=== PATIENT | male | born 1940 | race Caucasian/White ===

== ENCOUNTER → 2018-06-13 | Outpatient (CLI) | payer MEDICARE, BC ==
--- NOTE | 2018-06-13 16:22 | CT ---
EXAMINATION TYPE: CT lumbar spine wo con DATE OF EXAM: 06/13/2018 COMPARISON: None HISTORY: Low back and Bilat hip pain. No known injury CT DLP: [address] of the lumbar spine was performed. Bone and soft tissue window settings are submitted as well as coronal and sagittal reconstructions. L1-L2: Moderate degenerative disc space narrowing. Mild posterior disc bulge. No herniation protrusio n or central stenosis. Kjik-cl-zvjpacrk degenerative change of the facet joints. Ventral spondylosis. Foramina are patent bilaterally. L2-L3: Moderate degenerative disc space narrowing. Mild posterior disc bulge. No herniation protrusio n or central stenosis. Fdnw-ib-wzbacstg degenerative change of the facet joints. Ventral spondylosis. Foramina are patent bilaterally. L3-L4: Moderate degenerative disc space narrowing. Mild posterior disc bulge. No herniation protrusio n or central stenosis. Twpk-ov-drxwskwz degenerative change of the facet joints. Ventral spondylosis. Foramina are patent bilaterally. L4-L5: Severe degenerative disc space narrowing. Moderate circumferential disc bulge. Effacement vent ral thecal sac. Mild central stenosis. Bilateral foraminal encroachment. Severe facet joint arthropat hy. L5-S1: Moderate degenerative disc space narrowing. Mild posterior disc bulge. No herniation protrusio n or central stenosis. Aoih-wg-ejlxyycr degenerative change of the facet joints. Ventral spondylosis. Foramina are patent bilaterally. No paraspinal masses are identified. Lumbar segments are free if fracture. Right renal cyst. IMPRESSION: 1. Multilevel degenerative disc disease and spondylosis with disc bulging. Mild central stenosis L4-5 .
== END | disposition home or self-care (01) ==
LOC: RADCTMAIN 13:39
PROVIDERS: ATTEND Physical Medicine & Rehabilitation
DX: M48.061 Spinal stenosis, lumbar region without neurogenic claudication (principal); M51.26 Other intervertebral disc displacement, lumbar region; M51.36 Other intervertebral disc degeneration, lumbar region; M47.816 Spondylosis without myelopathy or radiculopathy, lumbar region; M16.0 Bilateral primary osteoarthritis of hip; E78.5 Hyperlipidemia, unspecified; E03.9 Hypothyroidism, unspecified; K21.9 Gastro-esophageal reflux disease without esophagitis; Z85.46 Personal history of malignant neoplasm of prostate; Z96.0 Presence of urogenital implants; Z96.89 Presence of other specified functional implants
CPT/HCPCS: 72131

== ENCOUNTER 2018-07-22 11:27 | Inpatient (IN) | payer MEDICARE, BC ==
[2018-07-22] MEDS ORDERED: HYDROmorphone 0.5 MG/0.5 ML SYRINGE IM STA (11:47)
--- NOTE | 2018-07-22 12:17 | CT ---
EXAMINATION TYPE: CT pelvis wo con DATE OF EXAM: 07/22/2018 COMPARISON: None HISTORY: Diminished mobility in right hip CT DLP: 607.8 mGycm Automated exposure control for dose reduction was used. FINDINGS: Advanced degenerative changes in right hip are identified with marked superior joint space loss as th ere is lpyx-ac-kcek formation with subchondral cystic change. There is loss of normal spherical shape in the right femoral head. There is moderate spurring superiorly at head neck junction. Mild to mode rate acetabular spurring is seen. No acute fracture or dislocation is noted. Left hip shows moderate to severe superior axial joint space loss with spurring along superior head n carina junction, there is subchondral cystic change superolateral acetabulum. Mild to moderate disc space narrowing with vacuum disc phenomenon L4-L5 level is seen. Moderate multi level anterior and lateral spurring is present. Diverticula in the sigmoid colon are identified. No suspicious bowel dilatation is seen. There are moderate left greater than right fat-containing inguinal hernias. Numerous brachytherapy se eds in normal size prostate gland are identified. IMPRESSION: ADVANCED END-STAGE DEGENERATIVE CHANGES RIGHT HIP.
[2018-07-22] MEDS ORDERED: IBUPROFEN 400 MG TAB PO PRN (14:02)
[2018-07-22] MEDS ORDERED: NALOXONE 0.4 MG/ML 1 ML VIAL IV PRN (14:02)
--- NOTE | 2018-07-22 14:02 | ED ---
General Adult HPI - General Chief complaint: Weakness Stated complaint: diminished mobility in rt hip Time Seen by Provider: 07/22/18 11:30 Source: patient Mode of arrival: EMS Limitations: no limitations - History of Present Illness Initial comments: 78-year-old male with past mental history of chronic low back pain and right hip pain since March. He states he did at that time have a bladder stimulator , he states this was obscuring imaging of the right hip. He states he has had extensive evaluation of the lumbar spine with recent CT of lumbar spine obtained 06/13/2018. Patient states he does not have significant back pain however he states describes his pain as localized to the right hip, he states he has been following Dr. Angelo as well as Dr. Ron for these complaints over the course of the past 4+ months. Patient states that for the past month the pain in the right hip seemed to be increasing. He states he had decreased mobility and increasing pain with any range of motion. Patient states today the pain he woke up with was intolerable. He states it took him an hour and a half to walk with a walker and assistance from his from the bathroom to a chair. He states this was secondary to pain, he denies weakness. He states he does not want to range at the right hip secondary to pain. Patient denies any numbness, tingling or loss sensation of the lower extremities he denies any urinary retention or loss of bowel bladder control patient denies any warmth or erythema of the right hip, he denies any fever, chills or night sweats. He denies any IV drug use he does admit to history of prostate cancer with last PSA <0.03 per patient. Upon arrival patient is brought by EMS, states this is because he was unable to ambulate to the car secondary to pain. Patient denies any recent falls or injury to the back.Remaining ROS (-) patient denies any recent shortness of breath, chest pain,abdominal pain, nausea or vomiting, numbness or tingling, dysuria or hematuria, constipation or diarrhea, headaches or visual changes, or any other complaints. - Related Data Home Medications Medication Instructions Recorded Confirmed Cephalexin [Keflex] 500 mg PO Q8HR 07/22/18 07/22/18 Furosemide [Lasix] 20 mg PO DAILY@1400 07/22/18 07/22/18 Furosemide [Lasix] 40 mg PO DAILY 07/22/18 07/22/18 Levothyroxine Sodium [Levoxyl] 75 mcg PO DAILY 07/22/18 07/22/18 Metoprolol Tartrate [Lopressor] 25 mg PO BID 07/22/18 07/22/18 Potassium Chloride [Klor-Con 10] 20 meq PO DAILY 07/22/18 07/22/18 oxyCODONE HCL/ACETAMINOPHEN 1 tab PO Q4HR PRN 07/22/18 07/22/18 [Percocet 7.5-325 mg] Allergies Allergy/AdvReac Type Severity Reaction Status Date / Time Mwzkyqe-Kdp-Cwq Reductase AdvReac Rash/Hives Verified 07/22/18 12:10 Inhibitor Review of Systems ROS Statement: Those systems with pertinent positive or pertinent negative responses have been documented in the HPI. ROS Other: All systems not noted in ROS Statement are negative. Past Medical History - Past Family History Mother Family Medical History: Cancer Additional Family Medical History / Comment(s): from colon cancer at age 60 Father Family Medical History: Liver Disease Additional Family Medical History / Comment(s): from cirrhosis of the liver at age 59 they felt it was d/t farming chemicals 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 General Exam - General Exam Comments Initial Comments: General: The patient is awake and alert, in no distress, until movement of hip Eye: Pupils are equal, round and reactive to light, extra-ocular movements are intact. No nystagmus. There is normal conjunctiva bilaterally. No signs of icterus. Ears, nose, mouth and throat: There are moist mucous membranes and no oral lesions. Neck: The neck is supple, there is no tenderness or JVD. Cardiovascular: There is a regular rate and rhythm. No murmur, rub or gallop is appreciated. Respiratory: Lungs are clear to auscultation, respirations are non-labored, breath sounds are equal. No wheezes, stridor, rales, or rhonchi. Gastrointestinal: [Soft, non-distended, non-tender abdomen without masses or organomegaly noted. There is no rebound or guarding present. No CVA tenderness. Bowel sounds are unremarkable.] Musculoskeletal: Upon inspection of the right hip but there is an incision from recent removal of bladder stimulator. Incision clean dry intact, no surrounding erythema. No drainage. No warmth to palpation. No masses upon palpation. There is no erythema of the right hip joint, no warmth to palpation. Patient has point localized tenderness no diffuse tenderness at the right hip near the femoral head . Patient has no midline or paravertebral tenderness to the lumbar spine. Patient is able to minimally range at the right hip secondary to pain, he states he cannot bear the pain with any types of range of motion. Strength distal to the knee and foot are 5 out of 5 with full range of motion. Patient is able to fully range at the left lower extremity. Full sensation of the lower extremities from the lower back to the toes bilaterally. Equal comparison. No anesthesia of the saddle region. DP pulses equal bilaterally 2+. Neurological: A&O x 3. CN II-XII intact, There are no obvious motor or sensory deficits. Coordination appears grossly intact. Speech is normal. Skin: Skin is warm and dry and no rashes or lesions are noted. Psychiatric: Cooperative, appropriate mood & affect, normal judgment. Limitations: no limitations Course Vital Signs 07/22/18 07/22/18 11:36 14:16 Temperature 98.3 F Pulse Rate 89 84 Respiratory 16 16 Rate Blood Pressure 127/72 132/79 O2 Sat by Pulse 99 99 Oximetry Medical Decision Making - Medical Decision Making Well-appearing male 38 years old with history of chronic right hip pain. CT of the pelvis obtained revealing a end-stage osteoarthritis of the right hip. This seems to correlate with patient's symptoms. The lumbar spine obtained in the pelvic imaging study revealed no acute changes, no significant stenosis. This time feel patient's symptoms correlate with pain originating from the hip rather than the lumbar spine. Does not appear to be radicular in nature. It increases with range of motion. Patient is unable to walk, his is not able to intubate him at home. He has difficulty now bright walking with a walker. At this time do feel patient should be admitted for intractable pain, social work consult and orthopedic evaluation for possible right hip replacement , physical therapy, or subacute rehab. Patient is agreeable plan, stating he does not feel safe going home. Patient given IV analgesics for comfort. Attending provider admitted patient after speaking with Dr. sparks. Who evaluated patient in person and will resume care. No further orders at this time. Patient transferred to the floor well-appearing in stable condition. Neurovascularly intact. - Lab Data Result diagrams: 07/22/18 16:07 07/22/18 16:07 Disposition Clinical Impression: Osteoarthritis of right hip, Intractable pain, Inability to ambulate due to hip Disposition: ADMITTED IP TO THIS [facility] Condition: Good Is patient prescribed a controlled substance at d/c from ED?: No Time of Disposition: 14:02 Decision to Admit Reason: Admit from EC Decision Date: 07/22/18 Decision Time: 14:02
--- NOTE | 2018-07-22 15:49 | P.HPIM ---
History of Present Illness H&P Date: 07/22/18 Chief Complaint: Severe intractable right hip pain 78-year-old male with history of A. fib not on anticoagulation, hyperactive bladder, hypothyroid Patient presented to the hospital due to severe right hip pain. He reported pain over the past 3 months has been progressive in nature however yesterday he was not even able to take any steps or weight-bear over his right lower extremity due to extreme pain. Patient indicated that took him over an hour to get from the couch to the bathroom and was very challenging she was worried that he might fall. He denies any focal neurologic deficits like numbness tingling or any weakness in his right lower extremity or left lower extremity. But reports that pain is limiting his activity. This has been progressive over the past 3 months described as sharp pain whenever he tries to move his lower extremities or weight-bear, pain would be 10 out of 10 in severity over the right hip radiating to the groin. Denies any low back pain. Denies any saddle numbness or tingling. Denies any changes in his urination or bowel movements. MRI of his lower back was ordered when he was evaluated by orthopedic recently however he couldn't get the MRI done due to having bladder nerve stimulator over his right hip he got that surgically removed few days ago for which she is on Keflex now. He had the MRI scheduled to be done in 2 days. However he didn't tolerate the pain at home anymore his home pain medications are not helping when he is taking [place]'s and ibuprofens and decided to come the hospital seeking medical advice. In the emergency department CT of the head showed severe advanced degenerative joint disease of right hip. Orthopedic recommended admission to medicine for pain management pending further recommendations. Otherwise patient denies any traumas or injuries to his hips or back, patient has been very active up until 3 months ago back in April 2018 when his functional status started to decline. He is currently using a walker with a lot of difficulties. Patient indicated that she wouldn't be able to take care of him at home as he is requiring a lot of assistance and would consider placement at rehab of possible. She otherwise denies fevers chills, chest pain trouble breathing, nausea vomiting abdominal pain, changes in his bowel or urinary habits, denies any urinary retention or bowel retention or any incontinence in his bowel or urine. Review of Systems Pertinent positives as noted in HPI. All other systems were reviewed and are negative Past Medical History Additional Past Medical History / Comment(s): Hypothyroid, hyperactive bladder, A. fib Medications and Allergies Home Medications Medication Instructions Recorded Confirmed Type Cephalexin [Keflex] 500 mg PO Q8HR 07/22/18 07/22/18 History Furosemide [Lasix] 20 mg PO DAILY@1400 07/22/18 07/22/18 History Furosemide [Lasix] 40 mg PO DAILY 07/22/18 07/22/18 History Levothyroxine Sodium [Levoxyl] 75 mcg PO DAILY 07/22/18 07/22/18 History Metoprolol Tartrate [Lopressor] 25 mg PO BID 07/22/18 07/22/18 History Potassium Chloride [Klor-Con 10] 20 meq PO DAILY 07/22/18 07/22/18 History oxyCODONE HCL/ACETAMINOPHEN 1 tab PO Q4HR PRN 07/22/18 07/22/18 History [Percocet 7.5-325 mg] Allergies Allergy/AdvReac Type Severity Reaction Status Date / Time Giwlvjp-Cdm-Bvg Reductase AdvReac Rash/Hives Verified 07/22/18 12:10 Inhibitor Physical Exam Vitals: Vital Signs Temp Pulse Pulse Resp BP BP Pulse Ox 07/22/18 15:00 99.3 F 84 20 132/70 99 07/22/18 14:16 84 16 132/79 99 07/22/18 11:36 98.3 F 89 16 127/72 99 Intake and Output 07/22/18 07/22/18 07/22/18 06:59 14:59 22:59 Other: Weight 104.326 kg Constitutional: No acute distress, conversant, pleasant, patient looks younger than stated age Eyes: Anicteric sclerae, moist conjunctiva, no lid-lag Pupils equal round reactive to light ENMT: NC/AT Oropharynx clear, no erythema, or exudates Neck: Supple, FROM, no masses, or JVD No carotid bruits No thyromegaly Lungs: Clear to auscultation Clear to percussion Normal respiratory effort, no accessory muscle use Cardiovascular: Heart irregular normal S1 and S2 No murmurs, gallops, or rubs +2 bilateral peripheral edema Abdominal: Soft Nontender, no guarding, rebound or rigidity Abdomen moving with respiration Normoactive bowel sounds No hepatomegaly, No splenomegaly No palpable mass No abdominal wall hernia noted Skin: Normal temperature, tone, texture, turgor No induration No subcutaneous nodules No rash, lesions No ulcers Extremities: No visible bruising or ecchymosis or any wounds over her right hip, no skin changes, no warmth to the touch. Very tender to deep palpation over the anterior right hip and the lateral aspect of the right hip No digital cyanosis No clubbing Pedal pulses intact and symmetrical Radial pulses intact and symmetrical No calf tenderness Psychiatric: Alert and oriented to person, place and time Appropriate affect fair judgment Neuro Muscles Strength 5/5 in bilateral upper extremities, patient couldn' t move his proximal muscle groups of the lower extremities due to severe bilateral hip pain however distal muscle groups over the foot has strength of 5 out of 5 bilaterally Sensation to light touch grossly present throughout Cranial nerves II-XII grossly intact No focal sensory deficits Deep tendon reflexes over bilateral knees weak on the left and intact on the right, plantar reflexes downward bilaterally over the feet Lymphatics: no palpable cervical or supraclavicular , or inguinal lymph nodes Assessment and Plan Assessment: 78-year-old male with history of A. fib on metoprolol and aspirin, hyperactive bladder, hypothyroid. Admitted to observation with anticipated length of stay less than 48 hours due to intractable right hip pain, further imaging in the ER revealed advanced degenerative joint disease of the right hip. Patient will be admitted for further evaluation by orthopedic surgery for their recommendations. pain control Plan: Intractable right hip pain Severe advanced right hip degenerative joint disease Continue with [place] when necessary Toradol for severe pain when necessary Bowel regimens daily Orthopedic evaluation Debilitating pain resulting in patient not even able to use a walker and requiring personal assistance to ambulate Chronic conditions currently stable A. fib on aspirin and metoprolol Hyperactive bladder status post removal of bladder nerve stimulator continue with Keflex for 3 more doses Hypothyroidism continue with levothyroxine Peripheral dependent edema, continue with Lasix daily, [place] wrap DVT prophylaxis heparin subcu 3 times a day Check CBC and BMP PT/OT life fall precautions fall precautions Surrogate decision-maker: Patient CODE STATUS: Full code Discussed with: Patient, ER Anticipated discharge: <48hours Anticipated discharge place: Pending clinical course, indicated that she couldn't take care of him anymore and would prefer to send him to rehab A total of 60 minutes was spent on the care of this complex patient more than 50 % of the time was spent in counseling and care coordination.
[2018-07-22] MEDS: SODIUM CHLORIDE 0.9% 1,000 ML IV SCH (16:02)
[2018-07-22] MEDS: CEPHALEXIN 500 MG CAP PO SCH ×2 (16:02→23:30)
[2018-07-22] MEDS: HEPARIN SODIUM,PORCINE 5,000 UNIT/ML 1 ML VIAL SQ SCH ×2 (16:03→23:30)
[2018-07-22 16:32] LABS: Basophils % (A) 0 %; Eosinophils # (A) 0.1 k/uL (0-0.7); Eosinophils % (A) 1 %; HCT 40.3 % (39.0-53.0); HGB 12.2 gm/dL (13.0-17.5); Hypochromasia Slight; Lymphocytes # (A) 1.1 k/uL (1.0-4.8); Lymphocytes % (A) 17 %; MCH 27.9 pg (25.0-35.0); MCHC 30.3 g/dL (31.0-37.0); MCV 91.9 fL (80.0-100.0); Mean Platelet Volume 5.9; Monocytes # (A) 0.7 k/uL (0-1.0); Monocytes % (A) 10 %; Neutrophils # (A) 4.8 k/uL (1.3-7.7); Neutrophils % (A) 71 %; Platelet Count 433 k/uL (150-450); RBC 4.38 m/uL (4.30-5.90); RDW 12.9 % (11.5-15.5); WBC 6.7 k/uL (3.8-10.6)
[2018-07-22 16:48] LABS: ALT 53 U/L (21-72); AST 45 U/L (17-59); Albumin 3.5 g/dL (3.5-5.0); Alkaline Phosphatase 166 U/L (38-126); Anion Gap 11 mmol/L; Blood Urea Nitrogen 12 mg/dL (9-20); Calcium 9.2 mg/dL (8.4-10.2); Carbon Dioxide 28 mmol/L (22-30); Chloride 95 mmol/L (98-107); Glucose 115 mg/dL (74-99); Potassium 4.5 mmol/L (3.5-5.1); Sodium 134 mmol/L (137-145); Total Bilirubin 0.9 mg/dL (0.2-1.3); Total Protein 6.5 g/dL (6.3-8.2)
[2018-07-22] MEDS: oxyCODONE-APAP 7.5-325MG 1 EACH TAB PO PRN (20:14)
[2018-07-22] MEDS: METOPROLOL TARTRATE 25 MG TAB PO SCH (20:14)
[2018-07-23] MEDS: oxyCODONE-APAP 7.5-325MG 1 EACH TAB PO PRN ×4 (03:30→18:02)
[2018-07-23] MEDS: LEVOTHYROXINE 75 MCG TAB PO SCH (06:21)
[2018-07-23] MEDS: ASPIRIN 81 MG PO SCH (08:01)
[2018-07-23] MEDS: FUROSEMIDE 40 MG TAB PO SCH (08:01)
[2018-07-23] MEDS: HEPARIN SODIUM,PORCINE 5,000 UNIT/ML 1 ML VIAL SQ SCH ×3 (08:01→23:15)
[2018-07-23] MEDS: CEPHALEXIN 500 MG CAP PO SCH ×2 (08:01→15:46)
[2018-07-23] MEDS: SENNOSIDES-DOCUSATE SODIUM 1 EACH TAB PO SCH (08:01)
[2018-07-23] MEDS: METOPROLOL TARTRATE 25 MG TAB PO SCH ×2 (08:01→20:30)
--- NOTE | 2018-07-23 13:16 | P.PN ---
Subjective Progress Note Date: 07/23/18 Principal diagnosis: Follow-up for severe intractable right hip pain, with severe advanced destructive degenerative joint disease of the right hip Patient seen and examined, no events overnight. Denies any chest pain fevers or chills or trouble breathing. He reports pain is well tolerated as long as he is now moving her weightbearing. again is concerned about taking her back home as he is require taxing effort and a lot of assistance and she is unable to provide that. Objective - Vital Signs Vital signs: Vital Signs Temp 99.0 F 07/23/18 06:54 Pulse 84 07/23/18 06:54 Resp 18 07/23/18 06:54 BP 125/64 07/23/18 06:54 Pulse Ox 96 07/23/18 06:54 Intake & Output 07/22/18 07/23/18 07/23/18 18:59 06:59 18:59 Intake Total 100 Output Total 600 Balance 100 -600 Weight 104.326 kg Intake: Oral 100 Output: Urine 600 Other: Voiding Method Urinal Urinal Urinal # Voids 1 - Exam Constitutional: vital signs stable, Not in acute distress, pleasant, conversant Lungs: Clear to auscultation bilaterally, clear to percussion, normal respiratory effort no use of accessory muscles Cardiovascular: Regular rate and rhythm, no murmurs, no gallops, no rubs, +1 peripheral edema Gastrointestinal: Soft, no tenderness to palpation, no palpable hepatosplenomegally, bowel sounds positive, no abdominal wall hernias Extremities: No digital cyanosis or clubbing, peripheral pulses palpable and equal over bilateral radial arteries and dorsalis pedis artery, no calf muscle tenderness Psych: Alert, oriented to place, person and time, appropriate affect, intact judgment Neuro: Cranial nerves II-XII grossly intact, no focal sensory deficits to touch Today patient was seen in the sitting position, again he is able to demonstrate good strength in his distal muscle groups over bilateral lower extremities. He is freely moving around the knee joint and ankle joints bilaterally however he is avoiding any movement that involves the hip joint due to severe pain - Labs CBC & Chem 7: 07/22/18 16:07 07/22/18 16:07 Labs: Abnormal Lab Results - Last 24 Hours (Table) 07/22/18 07/22/18 Range/Units 16:07 16:07 Hgb 12.2 L (13.0-17.5) gm/dL MCHC 30.3 L (31.0-37.0) g/dL Sodium 134 L (137-145) mmol/L Chloride 95 L (98-107) mmol/L Creatinine 0.64 L (0.66-1.25) mg/dL Glucose 115 H (74-99) mg/dL Alkaline Phosphatase 166 H (38-126) U/L Assessment and Plan Assessment: 78-year-old male with history of A. fib on metoprolol and aspirin, hyperactive bladder, hypothyroid. Admitted to observation with anticipated length of stay less than 48 hours due to intractable right hip pain, further imaging in the ER revealed advanced degenerative joint disease of the right hip. Patient will be admitted for further evaluation by orthopedic surgery for their recommendations. pain control Plan: Intractable right hip pain Severe advanced right hip degenerative joint disease Continue with [place] when necessary Toradol for severe pain when necessary Bowel regimens daily Orthopedic evaluation Debilitating pain resulting in patient not even able to use a walker and requiring personal assistance to ambulate Chronic conditions currently stable A. fib on aspirin and metoprolol Hyperactive bladder status post removal of bladder nerve stimulator continue with Keflex for 3 more doses Hypothyroidism continue with levothyroxine Peripheral dependent edema, continue with Lasix daily DVT prophylaxis heparin subcu 3 times a day PT/OT fall precautions geriatric social work professor consult for possible need of placement CODE STATUS: Full code I discussed the case with orthopedics, who based on their schedule wouldn't be able to perform any surgeries before the weekend. They also advised regarding infectious workup due to the rapid deterioration of the right hip compared to images from 3-4 months ago. Otherwise if there is no infection and patient is cleared. He would require total hip replacement of the right hip. I will discuss with geriatric social work professor possibilities of switching the patient to inpatient status to perform the suggested workup above ID consultation placed, follow-up on the inside and CRP
[2018-07-23] MEDS: SODIUM CHLORIDE 0.9% 1,000 ML IV SCH (14:48)
[2018-07-23] MEDS: FUROSEMIDE 20 MG TAB PO SCH (14:48)
--- NOTE | 2018-07-23 16:41 | P.CNOR ---
History of Present Illness - [facility] Consult date: 07/23/18 Consult reason: joint pain (Right hip pain and inability to ambulate) History of present illness: Patient is a very pleasant 78-year-old male who is seen and examined at the bedside with his present for further evaluation in regards to his lumbar spine and hip. He was previously seen and examined at our office at [facility] by Dr. Les Ron in regards to his lumbar spine and by Dr. Angelo in regards to his right hip. He is known to have some osteoarthritis of the right hip and was told he may need a hip replacement at some point. He also has degenerative changes lumbar spine. He was previously scheduled to have an MRI of the lumbar spine but this was canceled due to him having a bladder stimulator in place. This bladder stimulator has recently been removed approximately 2 days ago. A new order for a lumbar MRI was scheduled for tomorrow, 07/24/2018. Patient states he presents to the emergency department yesterday, 07/22/2018, due to severe pain at his right hip and inability to ambulate due to pain. He has pain that radiates towards her right groin and occasionally down the right anterior thigh towards the knee. He has difficulty with performing hip flexion on the right. He has difficulty with any weightbearing on the right lower extremity. He has been using a walker to aid in ambulation. He denies any recent injuries. He denies any left lower extremity radiculopathy or weakness. His symptoms are most significant at the right hip. He denies any specific low back pain. He does not feel he is able to take care of himself at home due to his inability to ambulate and perform regular activities of daily living. During his presentation to the emergency department a CT of the pelvis was performed which showed advanced end-stage degenerative changes at the right hip. Patient was admitted to medicine through observation status for further evaluation. Patient denies any nausea, vomiting, fever, or chills. Past Medical History Past Medical History: Atrial Fibrillation, Cancer, GERD/Reflux, Hyperlipidemia, Osteoarthritis (OA), Prostate Disorder, Sleep Apnea/CPAP/BIPAP, Thyroid Disorder Additional Past Medical History / Comment(s): Hypothyroid, hyperactive bladder, A. fib History of Any Multi-Drug Resistant Organisms: None Reported Past Surgical History: Heart Catheterization, Tonsillectomy Additional Past Surgical History / Comment(s): radioactive seed implants for prostate cancer, cataracts removed-lens implants, bladder control device implanted 07-10-17 and removed 07-18-18, colonoscopy/polypectomy-benign Past Anesthesia/Blood Transfusion Reactions: No Reported Reaction Additional Past Anesthesia/Blood Transfusion Reaction / Comm: has never had any blood transfusion Smoking Status: Former smoker - Past Family History Mother Family Medical History: Cancer Additional Family Medical History / Comment(s): from colon cancer at age 60 Father Family Medical History: Liver Disease Additional Family Medical History / Comment(s): from cirrhosis of the liver at age 59 they felt it was d/t farming chemicals 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 Medications and Allergies Home Medications Medication Instructions Recorded Confirmed Type Cephalexin [Keflex] 500 mg PO Q8HR 07/22/18 07/22/18 History Furosemide [Lasix] 20 mg PO DAILY@1400 07/22/18 07/22/18 History Furosemide [Lasix] 40 mg PO DAILY 07/22/18 07/22/18 History Levothyroxine Sodium [Levoxyl] 75 mcg PO DAILY 07/22/18 07/22/18 History Metoprolol Tartrate [Lopressor] 25 mg PO BID 07/22/18 07/22/18 History Potassium Chloride [Klor-Con 10] 20 meq PO DAILY 07/22/18 07/22/18 History oxyCODONE HCL/ACETAMINOPHEN 1 tab PO Q4HR PRN 07/22/18 07/22/18 History [Percocet 7.5-325 mg] Allergies Allergy/AdvReac Type Severity Reaction Status Date / Time Noaeucf-Muw-Dlf Reductase AdvReac Rash/Hives Verified 07/22/18 12:10 Inhibitor Physical Examination Physical exam: Patient is awake, alert, and oriented 3 Vital signs stable Good chest excursion with deep inspiration and expiration Examination of lumbar spine reveals skin is intact with no abrasions, lacerations, or bruises; no erythema, purulence or signs of infection No significant pain with palpation over the lumbar spine Dorsiflexion, plantarflexion, and extensor hallucis longus positive sustained bilaterally Lower extremity strength 5/5 on the left Significant difficulty with performing hip flexion and knee extension on the right Motor strength of the lower extremity is 2/5 including hip flexion Motor strength in the lower extremity is 3/5 including the extension Significant pain with internal and external rotation of the right hip Some pain with internal rotation of the left hip No signs or symptoms of DVT; no calf pain Neurovascularly intact Results Pertinent studies: CT of the pelvis taken on 07/22/2018: Right hip advanced end-stage degenerative changes with marked superior joint space loss and bone on bone formation with subchondral cystic change, loss of normal spherical shape and the right femoral head, moderate spurring superiorly at the head neck junction, and mild to moderate acetabular spurring seen at the right hip; left hip tzrhfljx-eo-uixapa axial joint space loss with spurring along the superior neck junction and subchondral cystic change at the superior lateral acetabulum L4-5 mild to moderate degenerative disc disease with vacuum disc phenomenon; moderate multilevel anterior and lateral osteophytic spurring - Labs Labs: Abnormal Lab Results - Last 24 Hours (Table) 07/22/18 07/22/18 07/23/18 Range/Units 16:07 16:07 13:48 Hgb 12.2 L (13.0-17.5) gm/dL MCHC 30.3 L (31.0-37.0) g/dL ESR 78 H (0-15) mm/hr Sodium 134 L (137-145) mmol/L Chloride 95 L (98-107) mmol/L Creatinine 0.64 L (0.66-1.25) mg/dL Glucose 115 H (74-99) mg/dL Alkaline Phosphatase 166 H (38-126) U/L C-Reactive Protein (<10.0) mg/L 07/23/18 Range/Units 13:48 Hgb (13.0-17.5) gm/dL MCHC (31.0-37.0) g/dL ESR (0-15) mm/hr Sodium (137-145) mmol/L Chloride (98-107) mmol/L Creatinine (0.66-1.25) mg/dL Glucose (74-99) mg/dL Alkaline Phosphatase (38-126) U/L C-Reactive Protein 59.7 H (<10.0) mg/L H & H 07/22/18 Range/Units 16:07 Hgb 12.2 L (13.0-17.5) gm/dL Hct 40.3 (39.0-53.0) % Result Diagrams: 07/22/18 16:07 07/22/18 16:07 Assessment and Plan Assessment: Assessment: Right hip advanced end-stage osteoarthritis Inability to ambulate due to pain at the right hip Right hip pain Right lower extremity weakness with hip flexion and knee extension Left hip osteoarthritis Lumbar degenerative disc disease History of atrial fibrillation not on anticoagulation History of hyperactive bladder with previous bladder stimulator placed with recent removal of bladder stimulator approximately 2 days ago History of hypothyroidism (1) Right hip pain Current Visit: Yes Status: Acute Code(s): M25.551 - PAIN IN RIGHT HIP SNOMED Code(s): 60575225 (2) Osteoarthritis of left hip Current Visit: Yes Status: Acute Code(s): M16.12 - UNILATERAL PRIMARY OSTEOARTHRITIS, LEFT HIP SNOMED Code(s): 814323108314200 (3) Lumbar degenerative disc disease Current Visit: Yes Status: Acute Code(s): M51.36 - OTHER INTERVERTEBRAL DISC DEGENERATION, LUMBAR REGION SNOMED Code(s): 79041946 (4) History of atrial fibrillation Current Visit: Yes Status: Acute Code(s): Z86.79 - PERSONAL HISTORY OF OTHER DISEASES OF THE CIRCULATORY SYSTEM SNOMED Code(s): 007847309 (5) History of hypothyroidism Current Visit: Yes Status: Acute Code(s): Z86.39 - PERSONAL HISTORY OF ENDO , NUTRITIONAL AND METABOLIC DISEASE SNOMED Code(s): 112324764 (6) Inability to ambulate due to hip Current Visit: Yes Status: Acute Code(s): R26.2 - DIFFICULTY IN WALKING, NOT ELSEWHERE CLASSIFIED SNOMED Code(s): 918926826 (7) Osteoarthritis of right hip Current Visit: Yes Status: Acute Code(s): M16.11 - UNILATERAL PRIMARY OSTEOARTHRITIS, RIGHT HIP SNOMED Code(s): 718831760274335 Plan: Plan: 1. Patient has been discussed in detail with Dr. Les Ron, Dr. Max Brian , Hermila Bui PA-C, and Dr. Marlow in medicine. Recent CT imaging of the pelvis shows right hip advanced end-stage osteoarthritis. Patient has severe pain right hip most specifically towards the groin. He is unable to ambulate on the right lower extremity due to pain. He is unable to perform regular activities of daily living and normal mobility given his symptoms. Imaging from the pelvis CT was compared to x-ray imaging taken at our office at [facility] in May 2018 and shows evidence of significant worsening degenerative changes at the right hip since that time. Due to the significant advancement of degenerative changes of the right hip over a short period of time we need to rule out infection or possibly avascular necrosis of the right hip. Medicine is currently working with social work to transition the patient from observation status to inpatient status. Once the patient has been changed to inpatient status, we will plan to obtain an MRI of the right hip with and without contrast for further evaluation. Dr. Marlow will plan to order the right hip MRI. Consultation has also been placed with Dr. Ly in infectious disease to rule out an infectious cause at the right hip. We'll continue to follow the patient closely and will follow up following further imaging results and with other input from other medical providers. We' re currently planning for the patient to undergo a right total hip arthroplasty this coming 07/28/2018, with Dr. Angelo or 07/29/2018, with Dr. Max Brian. We will continue to follow the patient closely. 2. Continue pain control with medications as prescribed 3. Patient currently waiting for consultation with infectious disease 4. Patient will continue to be seen and examined by medicine. 5. Plan of care has been discussed with Dr. Les oRn and Dr. Max Brian and they agree with this plan Time with Patient: Greater than 30 (Including physical examination, obtaining patient history, reviewing of imaging, and dictation)
[2018-07-23] MEDS: MORPHINE SULFATE 4 MG/ML SYRINGE IV PRN (23:17)
[2018-07-24] MEDS: oxyCODONE-APAP 7.5-325MG 1 EACH TAB PO PRN ×3 (04:33→12:40)
[2018-07-24] MEDS: LEVOTHYROXINE 75 MCG TAB PO SCH (06:01)
--- NOTE | 2018-07-24 07:23 | CONS ---
CONSULTATION DATE OF SERVICE: 07/23/2018 REASON FOR CONSULTATION: Right hip pain and concern for septic arthritis. HISTORY OF PRESENT ILLNESS: The patient is a 78-year-old male presenting to the ER at [facility] yesterday with the chief complaints of pain to his right hip area. The patient has been getting worse since April of 2018. The pain has been mostly in the hip, more of a dull aching pain with severe 12 out of 10 per patient with some radiation to the right groin and right lower leg area. Apparently, the patient did have evaluation in the outpatient setting where the patient did have x-rays of the hip as a CT of the lumbosacral spine with concern for degenerative changes both in the spine as well as in the right hip area. The patient apparently did have bladder stimulator placed that prevented him from getting an MRI. The patient did mention recently his bladder stimulator has been removed as it was not helpful to him. During all this time, the patient denies any high-grade fever, rigors or chills or any exposure to antibiotic. With these symptoms, the patient presented to hospital. The patient has been afebrile. The patient did have a pelvis CT obtained, which did show advanced degenerative changes to the right hip area apparently and this has progressed very quickly for the last 2 months with possibly avascular necrosis or right hip infection. The patient did have a Sed rate and CRP obtained which came to be higher. Infection Disease was consulted for further recommendation and possibility of the right hip septic arthritis. REVIEW OF SYSTEMS: Positive points have been mentioned in HPI. Rest of the systems has been negative. PAST MEDICAL HISTORY: Hypothyroidism, hyperactive bladder, atrial fibrillation, hyperlipidemia, prostate cancer, osteoarthritis, sleep apnea. PAST SURGICAL HISTORY: Heart catheterization and tonsillectomy, bladder stimulator that had been subsequently removed and radioactive seed implants for the prostate cancer. SOCIAL HISTORY: Remote history of smoking. No drinking or drug use. FAMILY HISTORY: Mother from colon cancer at age of 60. Father from liver cirrhosis at age of 59. ALLERGIES: Allergies to STATINS. MEDICATIONS: Medications include the patient is currently on Senokot, Percocet, Narcan, morphine sulfate, Lopressor, and Synthroid. PHYSICAL EXAMINATION: On examination, blood pressure 134/61 with a pulse of 77, temperature 98. He is 98% on room air. General description is an elderly male up in the chair in no distress. No tachypnea or accessory muscle of respiration use. HEENT examination shows no pallor or scleral icterus. Oral mucous membrane is dry. No pharyngeal erythema or thrush. NECK: Trachea central. No thyromegaly. LUNGS: Unlabored breathing, clear to auscultation anteriorly. No wheeze or crackle. HEART: S1, S2. Regular rate and rhythm. ABDOMEN: Soft, no tenderness. No guarding or rigidity. EXTREMITIES: No edema of feet. EXAMINATION OF RIGHT HIP AREA: Currently with no evidence of any swelling, redness or any point tenderness. The patient's bladder stimulator implant site on the left gluteal area with no evidence of any cellulitis, induration or fluctuation. SKIN EXAMINATION: No rash or mass palpable. NEUROLOGICAL: Patient is awake, alert, oriented x3. Mood and affect normal. LABS: Hemoglobin is 12.2, white count 6.7, BUN of 120, creatinine 0.64. CRP 59 with Sed rate of 78. . DIAGNOSTIC IMPRESSION AND PLAN: Patient admitted to the hospital with intractable right hip pain with some radiation to the groin and the leg area in this patient who did have degenerative disease of spine with rather rapid progression of the change to the right hip area and concern for possible avascular necrosis to the likely etiology clinically suspicious for underlying septic arthritis to be low in this patient currently not running any fever. No open wound or any cellulitis at the hip site and no history to be suspicious for bacteremia that may have that area. PLAN: 1. Await MRI of the right hip area that is suspicious for the right hip request and aspirate of the right hip with fluid sent for Gram stain and culture. 2. Blood cultures x2. 3. We will hold on any systemic antibiotic therapy to increase the of any cultures that may be performed. Thank you for this consultation. Will follow this patient along with you. MMODL / IJN: [id number] /
[2018-07-24 09:07] LABS: Basophils % (A) 0 %; Eosinophils # (A) 0.1 k/uL (0-0.7); Eosinophils % (A) 1 %; HGB 12.7 gm/dL (13.0-17.5); Hypochromasia Slight; Lymphocytes # (A) 1.3 k/uL (1.0-4.8); Lymphocytes % (A) 16 %; MCH 29.5 pg (25.0-35.0); MCHC 31.8 g/dL (31.0-37.0); MCV 92.9 fL (80.0-100.0); Mean Platelet Volume 6.5; Monocytes # (A) 0.7 k/uL (0-1.0); Monocytes % (A) 9 %; Neutrophils # (A) 5.6 k/uL (1.3-7.7); Neutrophils % (A) 71 %; Platelet Count 455 k/uL (150-450); RDW 13.3 % (11.5-15.5); WBC 7.8 k/uL (3.8-10.6)
--- NOTE | 2018-07-24 09:31 | P.PN ---
Progress Note - Text Progress Note Date: 07/24/18 Patient is seen and examined today at bedside. He continues to have significant pain in his right hip. He is unable to put weight on his right leg. He is unable to do motion in his right hip. He is not having numbness tingling in his lower extremities. He denies fevers chills. On exam His backs nontender palpation. He has sustained dorsal flexion plantarflexion and EHL intact. His seen him pain in his right hip with internal/external rotation. He is unable to lift his leg up off the bed and floor independently, due to the pain in his hip. His thigh and calf are soft and nontender. He's afebrile. His ESR is 79. Assessment and plan Intractable right hip pain Rapid progression of femoral head collapse right hip Rule out possibility of right hip infection versus acute collapse with chronic AVN The patient continues to have severe pain in his right hip and is unable to mobilize. He is unable to be at home due to his pain. He's been worked up for the possibly of infection of his right hip with his femoral head collapse and acute fracture within the femoral head. It would be helpful to obtain an MRI to discern various etiology of his hip issues and we will go ahead and order the MRI of his right hip. He may need surgical intervention with possible hip replacement during this hospitalization. Further planning will depend on the further workup for infection and MRI.
[2018-07-24 09:43] LABS: Anion Gap 13 mmol/L; Blood Urea Nitrogen 13 mg/dL (9-20); Calcium 9.5 mg/dL (8.4-10.2); Carbon Dioxide 26 mmol/L (22-30); Chloride 97 mmol/L (98-107); Glucose 132 mg/dL (74-99); Potassium 4.5 mmol/L (3.5-5.1); Sodium 136 mmol/L (137-145)
[2018-07-24] MEDS: FUROSEMIDE 40 MG TAB PO SCH (10:01)
[2018-07-24] MEDS: METOPROLOL TARTRATE 25 MG TAB PO SCH ×2 (10:02→20:17)
[2018-07-24] MEDS: SENNOSIDES-DOCUSATE SODIUM 1 EACH TAB PO SCH (10:02)
[2018-07-24] MEDS: ASPIRIN 81 MG PO SCH (10:03)
[2018-07-24] MEDS: HEPARIN SODIUM,PORCINE 5,000 UNIT/ML 1 ML VIAL SQ SCH ×2 (10:06→17:01)
[2018-07-24] MEDS: SODIUM CHLORIDE 0.9% 1,000 ML IV SCH (15:27)
[2018-07-24] MEDS: MORPHINE SULFATE 4 MG/ML SYRINGE IV PRN ×2 (16:04→20:34)
[2018-07-24] MEDS: FUROSEMIDE 20 MG TAB PO SCH (16:05)
--- NOTE | 2018-07-24 16:12 | MR ---
MR right hip with and without contrast HISTORY: Right hip pain, inability to ambulate Multiplanar multisequence and postcontrast images following 10 cc Gadavist IV obtained through the pe lvis with small [id number] images through the right hip. Correlation CT pelvis 07/22/2017 Exam is somewhat limited due to patient's inability to cooperate. There is extensive bone marrow signal change involving the right ischium and proximal right femur. No definite cortical destruction. Extensive edema signal present in the surrounding musculature and sof t tissues. Extensive remodeling has occurred in the right hip, proximal femur shows corresponding femoral head s hape change. There is extensive articular cartilage signal loss greater than right hip than on the le ft. The signal within the proximal femur is irregular and heterogeneous, there is corresponding lucen cy noted on CT. Cystic foci are present within the femoral neck region, intermediate signal is noted on T1-weighted sequences. Intermediate signal also noted within the ilium bilaterally, sacrum on T1-w eighted images. Suspect a chronic labral tear bilaterally, large paralabral cysts suspected on the left, there is rem odeling of the left femoral head, subchondral geode formation and reactive marrow signal change. Inte rmediate signal noted in the anterior femoral head on the left, there is remodeling on T1-weighted im ages, increased signal noted on T2-weighted sequences and corresponding distribution the left femoral head. Degenerative disc changes noted incidentally in the lower lumbar spine. IMPRESSION: There are advanced osteoarthritic changes present within the hips. Extensive marrow signa l changes are noted however, difficult to exclude infection, metastasis within the right hip. Extensi ve soft tissue signal changes also noted are indeterminate. A Yellow level critical message alert has been initiated for Dalila oRn [id number] via the [employer] Critical Results System on 07/24/2018 4:07 PM. This message alert has been sent to Dalila Ron [id number] via the preferences provided by the clinician for the receipt of Radiology Critical Findi ngs. Message ID [id number].
--- NOTE | 2018-07-24 16:49 | P.PN ---
Subjective Progress Note Date: 07/24/18 (Delayed charting patient seen at 1130) Principal diagnosis: right hip pain Patient is a 78-year-old male past medical history of A. fib not on chronic anticoagulation, overactive bladder, and hypothyroidism who presented to the ER with complaints of intractable right hip pain. In the ER he underwent a CT which showed severe advanced degenerative joint disease in the right hip. Initial laboratory analysis showed slight hyponatremia with a sodium of 134 and slight anemia with hemoglobin of 12.2 but was otherwise unremarkable. Orthopedic surgery recommended admission to medicine for pain management. Patient was subsequently admitted as observation. He was noted to have an elevated ESR and CRP. There was concern that he could have a right hip infection and ID was consulted. MRI currently pending. Patient seen and examined at bedside. He complains of right hip pain. He is unsure whether the pain medications are helping or not. He denies any nausea or vomiting. He denies any chest pain or shortness breath. He is still unable to bear weight on his right hip and has been unable to ambulate. He is therefore unable to be discharged home. MRI is currently pending to evaluate for possible infectious source. Objective - Vital Signs Vital signs: Vital Signs Temp 97.8 F 07/24/18 14:00 Pulse 89 07/24/18 14:00 Resp 18 07/24/18 14:00 BP 125/66 07/24/18 14:00 Pulse Ox 99 07/24/18 14:00 Intake & Output 07/23/18 07/24/18 07/24/18 18:59 06:59 18:59 Intake Total 120 800 Output Total 600 Balance -480 800 Intake: Oral 120 800 Output: Urine 600 Other: Voiding Method Urinal Urinal Urinal # Voids 3 2 - Exam General: non toxic, mild distress secondary to pain, appears at stated age Derm: warm, dry Head: atraumatic, normocephalic, symmetric Eyes: EOMI, no lid lag, anicteric sclera Mouth: no lip lesion, mucus membranes moist Cardiovascular: S1S2 reg, no murmur, positive posterior tibial pulse bilateral, Lungs: Decreased breath sounds bilateral bases, no rhonchi, no rales , no accessory muscle use Abdominal: soft, nontender to palpation, no guarding, no appreciable organomegaly Ext: no gross muscle atrophy, no edema, no contractures Neuro: CN II-XI grossly intact, no focal neuro deficits Psych: Alert, oriented, appropriate affect - Labs CBC & Chem 7: 07/24/18 08:42 07/24/18 08:42 Labs: Abnormal Lab Results - Last 24 Hours (Table) 07/24/18 07/24/18 Range/Units 08:42 08:42 Hgb 12.7 L (13.0-17.5) gm/dL Plt Count 455 H (150-450) k/uL Sodium 136 L (137-145) mmol/L Chloride 97 L (98-107) mmol/L Creatinine 0.62 L (0.66-1.25) mg/dL Glucose 132 H (74-99) mg/dL Assessment and Plan Assessment: Intractable right hip pain, concern for infection versus severe osteoarthritis -Elevated ESR and CRP, MRI pending -Orthopedic recommendations -ID recommendations -Increase Percocet -Continue to use morphine for breakthrough pain A. fib -Aspirin home -Metoprolol -Monitor heart rate Hyperactive bladder -Status post removal of bladder stimulator. Hypothyroidism - continue with synthroid Peripheral edema - continue lasix Hyponatremia, mild -likely due to chronic lasix use - continue to monitor Obesity with BMI 35 - outpatient structured weight loss DVT prophylaxis: Heparin Discussed with: Patient, nursing Anticipated discharge: 2-4 days pending BAMBI results Anticipated discharge place: ideally to [facility] A total of 35 minutes was spent on the care of this complex patient more than 50 % of the time was spent in counseling and care coordination.
[2018-07-24] MEDS: oxyCODONE-APAP 10-325MG 1 EACH TAB PO PRN (17:51)
--- NOTE | 2018-07-25 00:05 | PN ---
PROGRESS NOTE DATE OF SERVICE: 07/24/2018. REASON FOR FOLLOWUP: Right hip pain with question of septic arthritis. INTERVAL HISTORY: The patient is currently afebrile. He continues to have significant pain to the right hip area. The patient denies having any chest pain, shortness of breath or cough. No abdominal pain or any diarrhea. PHYSICAL EXAMINATION: Blood pressure 125/66 with a pulse of 89, temperature 97.8. He is 99% on room air. GENERAL DESCRIPTION: An elderly male up in the chair in no distress. RESPIRATORY SYSTEM: Unlabored breathing. Clear to auscultation anteriorly. HEART: S1, S2. Regular rate and rhythm. ABDOMEN: Soft, no tenderness. Left hip currently with no point tenderness or any redness. LABS: White count normal 7.8 with a BUN of 13, creatinine 0.62. MRI was not very conclusive. DIAGNOSTIC IMPRESSION AND PLAN: Patient with significant pain to the right hip area in this patient who did have significant destruction on the CT. MRI was completed today. The right hip did not show any cortical destruction with advanced osteoarthritic changes, however, the radiologist would not give an opinion whether this was infection or metastasis. Wound recommend possible aspirate of that hip joint with fluid sent for the culture. We will hold on any systemic antibiotic therapy as clinically the patient remains to be low for underlying septic arthritis. Blood culture has been obtained. This will be discussed further with Orthopedics. Continue supportive care. MMODL / IJN: [id number] /
[2018-07-25] MEDS: HEPARIN SODIUM,PORCINE 5,000 UNIT/ML 1 ML VIAL SQ SCH ×4 (00:17→23:30)
[2018-07-25] MEDS: MORPHINE SULFATE 4 MG/ML SYRINGE IV PRN ×5 (00:17→19:51)
[2018-07-25] MEDS: LEVOTHYROXINE 75 MCG TAB PO SCH (05:38)
[2018-07-25] MEDS: METOPROLOL TARTRATE 25 MG TAB PO SCH ×2 (08:19→21:00)
[2018-07-25] MEDS: SENNOSIDES-DOCUSATE SODIUM 1 EACH TAB PO SCH (08:20)
[2018-07-25] MEDS: FUROSEMIDE 40 MG TAB PO SCH (08:20)
[2018-07-25] MEDS: ASPIRIN 81 MG PO SCH (08:20)
--- NOTE | 2018-07-25 09:21 | P.PN ---
Progress Note - Text Progress Note Date: 07/25/18 Patient is a very pleasant 78-year-old male who is seen and examined at the bedside for follow-up evaluation evaluation in regards to his lumbar spine and hip. He was previously seen and examined at our office at [facility] by Dr. Les Ron in regards to his lumbar spine and by Dr. Angelo in regards to his right hip. He has not had any significant improvement at his right hip and feels his right hip pain and weakness is worsening. He is unable to perform any significant hip flexion on the right. He was able to have an MRI of his right hip performed yesterday. He has been seen and examined by Dr. Ly in infectious disease. He continues to follow with medicine. He continues to have significant difficulty with ambulation. He continues to experience severe pain at his right hip and inability to ambulate due to pain. He has pain that radiates towards her right groin and occasionally down the right anterior thigh towards the knee. He has difficulty with any weightbearing on the right lower extremity. He has been using a walker to aid in ambulation. He denies any recent injuries. He denies any left lower extremity radiculopathy or weakness. His symptoms are most significant at the right hip. He denies any specific low back pain. He states again today does not feel he is able to take care of himself at home due to his inability to ambulate and perform regular activities of daily living. During his presentation to the emergency department a CT of the pelvis was performed which was reviewed and discussed previously which showed advanced end-stage degenerative changes at the right hip. Patient has been admitted to inpatient status. Further workup is being done for the possibility of septic joint of the right hip. Patient denies any nausea, vomiting, fever, or chills. Physical exam: Patient is awake, alert, and oriented 3 Vital signs stable Good chest excursion with deep inspiration and expiration Examination of lumbar spine reveals skin is intact with no abrasions, lacerations, or bruises; no erythema, purulence or signs of infection No significant pain with palpation over the lumbar spine Dorsiflexion, plantarflexion, and extensor hallucis longus positive sustained bilaterally Lower extremity strength 5/5 on the left Significant difficulty with performing hip flexion and knee extension on the right Motor strength of the lower extremity is 0/5 including hip flexion Motor strength in the lower extremity is 2/5 including the extension Significant pain with internal and external rotation of the right hip Some pain with internal rotation of the left hip No signs or symptoms of DVT; no calf pain Neurovascularly intact Pertinent studies: MRI of the right hip performed on 07/24/2018: Advanced osteoarthritic changes present within the right hip with extensive remodeling, proximal femur showing femoral head shape change, extensive articular cartilage loss, signal within the right proximal femur is irregular and heterogeneous with corresponding lucency noted on CT, cystic foci are present within the femoral neck region; suspected chronic labral tear bilaterally; osteoarthritis of the left hip with remodeling of the left femoral head subchondral geode formation, reactive marrow signal change, and intermediate signal noted in the anterior femoral head on the left; advanced osteoarthritic changes present within the hips with extensive marrow signal changes noted, however, making it difficult to exclude infection or metastasis within the right hip; extensive soft tissue signal changes also noted are indeterminate CT of the pelvis taken on 07/22/2018: Right hip advanced end-stage degenerative changes with marked superior joint space loss and bone on bone formation with subchondral cystic change, loss of normal spherical shape and the right femoral head, moderate spurring superiorly at the head neck junction, and mild to moderate acetabular spurring seen at the right hip; left hip [id number] axial joint space loss with spurring along the superior neck junction and subchondral cystic change at the superior lateral acetabulum L4-5 mild to moderate degenerative disc disease with vacuum disc phenomenon; moderate multilevel anterior and lateral osteophytic spurring Assessment: Right hip advanced end-stage osteoarthritis Inability to ambulate due to pain at the right hip Right hip pain Right lower extremity weakness with hip flexion and knee extension Left hip osteoarthritis Lumbar degenerative disc disease History of atrial fibrillation not on anticoagulation History of hyperactive bladder with previous bladder stimulator placed with recent removal of bladder stimulator approximately 2 days ago History of hypothyroidism Plan: 1. Patient has been discussed in detail with Dr. Les Ron, Dr. Max Brian , Hermila Bui PA-C, and Dr. Marlow in medicine. Recent MRI and CT imaging of the pelvis shows right hip advanced end-stage osteoarthritis. Patient has severe pain right hip most specifically towards the groin. He is unable to ambulate on the right lower extremity due to pain. He is unable to perform regular activities of daily living and normal mobility given his symptoms. Imaging from the pelvis CT was compared to x-ray imaging taken at our office at [facility] in May 2018 and shows evidence of significant worsening degenerative changes at the right hip since that time. His symptoms have continued to worsen during his admission. Patient follows with Dr. Angelo in the outpatient setting for further evaluation of his right hip. Patient has been discussed with Dr. Angelo who is currently planning for surgical intervention at the right hip this coming 07/28/2018. Surgical intervention has been scheduled for a right total hip arthroplasty. Imaging will be reviewed by Dr. Angelo prior to surgical intervention. We'll continue to follow patient closely. 2. Patient has been seen exam by Dr. Ly in infectious disease who will continue workup for possible infection. His note indicates he does not currently feel patient is experiencing septic arthritis at the right hip as he is afebrile and does not have an elevated WBC. 3. Patient has been discussed in detail with nursing is well. We discussed medicine and infectious disease may continue to workup the patient for further evaluation with labs and further imaging as a feel necessary. This plan of care was discussed with the patient is well who is in agreement. We are not currently planning to obtain further imaging or labs at this time in regards to his right hip. Patient will need clearance by medicine and infectious disease prior to scheduled intervention is coming 07/28/2018. 4. Continue pain control with medications as prescribed 5. Patient may continue using a walker to aid in ambulation as needed.
[2018-07-25] MEDS: oxyCODONE-APAP 10-325MG 1 EACH TAB PO PRN (09:40)
[2018-07-25] MEDS: FUROSEMIDE 20 MG TAB PO SCH (13:28)
[2018-07-25] MEDS ORDERED: DOCUSATE 100 MG CAP PO PRN (14:14)
--- NOTE | 2018-07-25 14:35 | P.PN ---
Subjective Progress Note Date: 07/25/18 Principal diagnosis: right hip pain Patient is a 78-year-old male past medical history of A. fib not on chronic anticoagulation, overactive bladder, and hypothyroidism who presented to the ER with complaints of intractable right hip pain. In the ER he underwent a CT which showed severe advanced degenerative joint disease in the right hip. Initial laboratory analysis showed slight hyponatremia with a sodium of 134 and slight anemia with hemoglobin of 12.2 but was otherwise unremarkable. Orthopedic surgery recommended admission to medicine for pain management. Patient was subsequently admitted as observation. He was noted to have an elevated ESR and CRP. There was concern that he could have a right hip infection and ID was consulted. MRI showed advanced hip joint distruction cannot rule out metastasis or infection but no definitive abscess. Patient seen and examined at bedside. Worse right hip pain after laying on MRI table. No chest pain, SOB, or nausea. No BM today but feels like he is going to have one. He denies any chest pain in the last 6 months, up until his hip pain got severe 3 weeks ago he was walking up one flight of stairs without difficulty. No chest pain, no shortness of breath, no syncopal events. He was easily able to walk one city block. He states that he follows with cardiology regularly for his A. fib. He has had a stress test approximately 2 years ago which he states did not show any problem. He has not had any syncopal events. Objective - Vital Signs Vital signs: Vital Signs Temp 99.2 F 07/25/18 06:30 Pulse 62 07/25/18 10:45 Resp 18 07/25/18 08:00 BP 163/73 07/25/18 10:45 Pulse Ox 97 07/25/18 06:30 Intake & Output 07/24/18 07/25/18 07/25/18 18:59 06:59 18:59 Intake Total 300 Output Total 125 Balance 175 Intake: Oral 300 Output: Urine 125 Other: Voiding Method Urinal Urinal Urinal # Voids 2 3 - Exam General: non toxic, mild distress secondary to pain, appears at stated age Derm: warm, dry Head: atraumatic, normocephalic, symmetric Eyes: EOMI, no lid lag, anicteric sclera Mouth: no lip lesion, mucus membranes moist Cardiovascular: S1S2 reg, no murmur, positive posterior tibial pulse bilateral, Lungs: Decreased breath sounds bilateral bases, no rhonchi, no rales , no accessory muscle use Abdominal: soft, nontender to palpation, no guarding, no appreciable organomegaly Ext: no gross muscle atrophy, no edema, no contractures Neuro: CN II-XI grossly intact, no focal neuro deficits Psych: Alert, oriented, appropriate affect - Labs CBC & Chem 7: 07/24/18 08:42 07/24/18 08:42 Labs: Microbiology - Last 24 Hours (Table) 07/24/18 08:49 Blood Culture - Preliminary Blood No Growth after 24 hours 07/24/18 08:42 Blood Culture - Preliminary Blood No Growth after 24 hours Assessment and Plan Assessment: Intractable right hip pain, concern for infection versus severe osteoarthritis -Elevated ESR and CRP, MRI without definitive infection -Orthopedic recommendations: plan is for OR on Saturday -ID recommendations: hip aspirate, not likely septic arthritis, no ABX at this time -Increase Percocet again today -Continue to use morphine for breakthrough pain -Will need EKG results but currently RCIC 3.6 A. fib -Aspirin stopped -Metoprolol -Monitor heart rate Hyperactive bladder -Status post removal of bladder stimulator. Hypothyroidism - continue with synthroid Peripheral edema - continue lasix Hyponatremia, mild -likely due to chronic lasix use - continue to monitor Obesity with BMI 35 - outpatient structured weight loss DVT prophylaxis: Heparin Discussed with: Patient, nursing Anticipated discharge: 4-[address]: ideally to [facility] A total of 35 minutes was spent on the care of this complex patient more than 50 % of the time was spent in counseling and care coordination.
[2018-07-25] MEDS: SODIUM CHLORIDE 0.9% 1,000 ML IV SCH (14:41)
[2018-07-25] MEDS: oxyCODONE-APAP 7.5-325MG 1 EACH TAB PO PRN ×2 (16:35→23:32)
[2018-07-26] MEDS: MORPHINE SULFATE 4 MG/ML SYRINGE IV PRN ×2 (01:39→19:32)
[2018-07-26] MEDS: oxyCODONE-APAP 7.5-325MG 1 EACH TAB PO PRN ×4 (05:32→21:43)
[2018-07-26] MEDS: LEVOTHYROXINE 75 MCG TAB PO SCH (05:32)
[2018-07-26] MEDS: FUROSEMIDE 40 MG TAB PO SCH (08:08)
[2018-07-26] MEDS: HEPARIN SODIUM,PORCINE 5,000 UNIT/ML 1 ML VIAL SQ SCH ×3 (08:08→23:31)
[2018-07-26] MEDS: METOPROLOL TARTRATE 25 MG TAB PO SCH ×2 (08:08→22:34)
[2018-07-26] MEDS: SENNOSIDES-DOCUSATE SODIUM 1 EACH TAB PO SCH (08:08)
--- NOTE | 2018-07-26 08:31 | PN ---
PROGRESS NOTE DATE OF SERVICE: 07/25/2018. REASON FOR FOLLOWUP: Right hip pain and a question of possible osteoarthritis. INTERVAL HISTORY: The patient is afebrile. The patient has been breathing comfortably. Denies any chest pain, shortness of breath or cough. No abdominal pain. Did have pain to the right hip area. No worsening since admission. PHYSICAL EXAMINATION: Blood pressure 134/85 with a pulse of 89. Temperature 97.5. He is 98% on room air. General description is an elderly male up in the chair in no distress. Respiratory system: Unlabored breathing. Clear to auscultation anteriorly. Heart S1, S2. Regular rate and rhythm. Abdomen soft, no tenderness. Right hip area currently with no open wounds. No swelling and no redness. LABS: Blood culture has been negative. DIAGNOSTIC IMPRESSION AND PLAN: Patient with intractable right hip pain. likely for advanced osteoarthritis, less likely. The patient is scheduled for surgery on Saturday with possible right hip arthroplasty. However, if any suspicious for infection at the time of surgery that can be to debridement and deep cultures. Hold on any empiric antibiotic therapy at this point, any cultures down the road and remains to be low for septic arthritis. Continue supportive care. MMODL / IJN: [id number] /
--- NOTE | 2018-07-26 09:39 | P.PN ---
Subjective Progress Note Date: 07/26/18 This is a 78-year-old male who is admitted for right hip pain. MRI and CT of the pelvis and right hip show advanced end-stage osteoarthritis. Patient states that today's pain is under control he denies any new complaints or any fever/chills. Objective - Vital Signs Vital signs: Vital Signs Temp 97.9 F 07/26/18 06:13 Pulse 103 H 07/26/18 06:13 Resp 18 07/26/18 06:13 BP 132/73 07/26/18 06:13 Pulse Ox 97 07/26/18 06:13 Intake & Output 07/25/18 07/26/18 07/26/18 18:59 06:59 18:59 Output Total 150 1150 Balance -150 -1150 Output: Urine 150 1150 Other: Voiding Method Urinal Urinal Urinal # Voids 1 1 - Exam On exam patient is sitting up comfortably in bed. Patient has limited range of motion of the right hip due to pain. Calf is soft and nontender to palpation. Sensation is intact. Patient has full range of motion of the right foot and ankle. Neurovascular status and circulatory status are intact. - Labs CBC & Chem 7: 07/24/18 08:42 07/24/18 08:42 Labs: Microbiology - Last 24 Hours (Table) 07/24/18 08:49 Blood Culture - Preliminary Blood No Growth after 24 hours 07/24/18 08:42 Blood Culture - Preliminary Blood No Growth after 24 hours Assessment and Plan (1) Inability to ambulate due to hip Current Visit: Yes Status: Acute Code(s): R26.2 - DIFFICULTY IN WALKING, NOT ELSEWHERE CLASSIFIED SNOMED Code(s): 976222443 (2) Intractable pain Current Visit: Yes Status: Acute Code(s): R52 - PAIN, UNSPECIFIED SNOMED Code(s): 39712978 (3) Osteoarthritis of right hip Current Visit: Yes Status: Acute Code(s): M16.11 - UNILATERAL PRIMARY OSTEOARTHRITIS, RIGHT HIP SNOMED Code(s): 563431341063590 (4) Right hip pain Current Visit: Yes Status: Acute Code(s): M25.551 - PAIN IN RIGHT HIP SNOMED Code(s): 13845800 Plan: 1. Walker as needed for ambulation. Protected weightbearing. 2. Continue pain control. 3. Appreciate input from infectious disease and internal medicine. Medical clearance is pending. Awaiting EKG results. 4. Right total hip arthroplasty is scheduled for 07/28/2018 pending consent and medical clearance from infectious disease and internal medicine.
[2018-07-26] MEDS: FUROSEMIDE 20 MG TAB PO SCH (15:24)
[2018-07-26] MEDS: SODIUM CHLORIDE 0.9% 1,000 ML IV SCH (15:25)
[2018-07-26] MEDS ORDERED: LACTULOSE 20 GM/30 ML CUP PO PRN (16:22)
--- NOTE | 2018-07-26 16:25 | P.PN ---
Subjective Progress Note Date: 07/26/18 Principal diagnosis: right hip pain Patient is a 78-year-old male past medical history of A. fib not on chronic anticoagulation, overactive bladder, and hypothyroidism who presented to the ER with complaints of intractable right hip pain. In the ER he underwent a CT which showed severe advanced degenerative joint disease in the right hip. Initial laboratory analysis showed slight hyponatremia with a sodium of 134 and slight anemia with hemoglobin of 12.2 but was otherwise unremarkable. Orthopedic surgery recommended admission to medicine for pain management. Patient was subsequently admitted as observation. He was noted to have an elevated ESR and CRP. There was concern that he could have a right hip infection and ID was consulted. MRI showed advanced hip joint distruction cannot rule out metastasis or infection but no definitive abscess. Patient seen and examined at bedside. Pain better today with changing of bed and increased percocet. Still with constipation. No chest pain or shortness of breath. Had a long discussion that he will need to take some form of anticoagulant or antiplatelet post surgery. Objective - Vital Signs Vital signs: Vital Signs Temp 97.9 F 07/26/18 06:13 Pulse 103 H 07/26/18 06:13 Resp 18 07/26/18 06:13 BP 132/73 07/26/18 06:13 Pulse Ox 97 07/26/18 06:13 Intake & Output 07/25/18 07/26/18 07/26/18 18:59 06:59 18:59 Output Total 150 1150 Balance -150 -1150 Output: Urine 150 1150 Other: Voiding Method Urinal Urinal Urinal # Voids 1 1 - Exam General: non toxic, no distress, appears at stated age Derm: warm, dry Head: atraumatic, normocephalic, symmetric Eyes: EOMI, no lid lesion, anicteric sclera Mouth: no lip lesion, mucus membranes moist Cardiovascular: S1S2 reg, no murmur, positive posterior tibial pulse bilateral, Lungs: CTA b/l, no rhonchi, no rales , no accessory muscle use Abdominal:+ BS, soft, nontender to palpation, no guarding, no appreciable organomegaly Ext: no gross muscle atrophy, no edema, no contractures Neuro: CN II-XI grossly intact, no focal neuro deficits Psych: Alert, oriented, appropriate affect - Labs CBC & Chem 7: 07/24/18 08:42 07/24/18 08:42 Labs: Microbiology - Last 24 Hours (Table) 07/24/18 08:49 Blood Culture - Preliminary Blood No Growth after 24 hours 07/24/18 08:42 Blood Culture - Preliminary Blood No Growth after 24 hours Assessment and Plan Assessment: Intractable right hip pain, concern for infection versus severe osteoarthritis -Elevated ESR and CRP, MRI without definitive infection -Orthopedic recommendations: plan is for OR on Saturday -ID recommendations: hip aspirate, not likely septic arthritis, no ABX at this time -Pain control wit percocet and morphine -Continue to use morphine for breakthrough pain -Will need EKG results but currently RCIC 3.6 Constipation - miralax again today and lactulose if not effective. - was already on senna and colace. A. fib -Aspirin stopped -Metoprolol -Monitor heart rate Hyperactive bladder -Status post removal of bladder stimulator. Hypothyroidism - continue with synthroid Peripheral edema - continue lasix Hyponatremia, mild -likely due to chronic lasix use - continue to monitor Obesity with BMI 35 - outpatient structured weight loss DVT prophylaxis: Heparin Discussed with: Patient, nursing Anticipated discharge: 3-[address]: ideally to [facility] [place] A total of 35 minutes was spent on the care of this complex patient more than 50 % of the time was spent in counseling and care coordination.
[2018-07-26] MEDS ORDERED: POLYETHYLENE GLYCOL 3350 17 GM POWD.PACK PO SCH (16:30)
[2018-07-26] MEDS: POLYETHYLENE GLYCOL 3350 17 GM POWD.PACK PO SCH (22:35)
[2018-07-27] MEDS: oxyCODONE-APAP 7.5-325MG 1 EACH TAB PO PRN ×4 (03:41→23:56)
[2018-07-27] MEDS: LEVOTHYROXINE 75 MCG TAB PO SCH (06:53)
[2018-07-27] MEDS: METOPROLOL TARTRATE 25 MG TAB PO SCH ×2 (09:03→20:58)
[2018-07-27] MEDS: FUROSEMIDE 40 MG TAB PO SCH (09:03)
[2018-07-27] MEDS: HEPARIN SODIUM,PORCINE 5,000 UNIT/ML 1 ML VIAL SQ SCH ×2 (09:03→12:49)
[2018-07-27] MEDS: SENNOSIDES-DOCUSATE SODIUM 1 EACH TAB PO SCH ×2 (09:04→09:05)
--- NOTE | 2018-07-27 09:04 | P.PN ---
Subjective Progress Note Date: 07/27/18 This is a 78-year-old male who is admitted for right hip pain. MRI and CT of the pelvis and right hip show advanced end-stage osteoarthritis. Patient states that he was having pain in the hip overnight, but patient denies any new complaints or any fever/chills. Objective - Vital Signs Vital signs: Vital Signs Temp 98.3 F 07/27/18 07:00 Pulse 108 H 07/27/18 07:00 Resp 16 07/27/18 07:00 BP 148/69 07/27/18 07:00 Pulse Ox 97 07/27/18 07:00 Intake & Output 07/26/18 07/27/18 07/27/18 18:59 06:59 18:59 Intake Total 1800 Output Total 600 Balance 1800 -600 Intake: Oral 1800 Output: Urine 600 Other: Voiding Method Urinal Urinal # Voids 2 # Bowel Movements 1 - Exam On exam patient is sitting up comfortably in bed. Patient has limited range of motion of the right hip due to pain. Calf is soft and nontender to palpation. Sensation is intact. Patient has full range of motion of the right foot and ankle. Neurovascular status and circulatory status are intact. - Labs CBC & Chem 7: 07/24/18 08:42 07/24/18 08:42 Labs: Microbiology - Last 24 Hours (Table) 07/24/18 08:49 Blood Culture - Preliminary Blood No Growth after 48 hours 07/24/18 08:42 Blood Culture - Preliminary Blood No Growth after 48 hours Assessment and Plan (1) Inability to ambulate due to hip Current Visit: Yes Status: Acute Code(s): R26.2 - DIFFICULTY IN WALKING, NOT ELSEWHERE CLASSIFIED SNOMED Code(s): 288574140 (2) Intractable pain Current Visit: Yes Status: Acute Code(s): R52 - PAIN, UNSPECIFIED SNOMED Code(s): 67996164 (3) Osteoarthritis of right hip Current Visit: Yes Status: Acute Code(s): M16.11 - UNILATERAL PRIMARY OSTEOARTHRITIS, RIGHT HIP SNOMED Code(s): 621290266020250 (4) Right hip pain Current Visit: Yes Status: Acute Code(s): M25.551 - PAIN IN RIGHT HIP SNOMED Code(s): 85939599 Plan: 1. Walker as needed for ambulation. Protected weight-bearing. 2. Continue pain control. 3. Appreciate input from infectious disease and internal medicine. 4. Right total hip arthroplasty is scheduled for 07/28/2018 pending consent and medical clearance from infectious disease and internal medicine.
[2018-07-27] MEDS ORDERED: LIDOCAINE 1% 20 ML VIAL (10MG/ML) FOR IV START INTRADERMA PRN (09:10)
[2018-07-27] MEDS ORDERED: ONDANSETRON 4 MG/2 ML VIAL IVP ONE (09:10)
[2018-07-27] MEDS ORDERED: HYDROmorphone 0.5 MG/0.5 ML SYRINGE IVP PRN (09:10)
[2018-07-27] MEDS ORDERED: fentaNYL (PF) 50 MCG/ML 2 ML AMP IV PRN (09:10)
[2018-07-27] MEDS ORDERED: DEXAMETHASONE SOD PHOSPHATE 10 MG/ML 1 ML VIAL IV ONE (09:10)
[2018-07-27] MEDS ORDERED: MIDAZOLAM (PF) 2 MG/2 ML VIAL IV PRN (09:10)
--- NOTE | 2018-07-27 10:47 | PN ---
PROGRESS NOTE DATE OF SERVICE: 07/26/2018. REASON FOR FOLLOWUP: Right hip pain with question of septic arthritis. INTERVAL HISTORY: The patient is afebrile. He has been breathing comfortably. Pain to the right leg slightly controlled with pain medication, however, the patient has not been doing anything. Denies any chest pain or cough. No abdominal pain, no diarrhea. PHYSICAL EXAMINATION: Blood pressure 150/66 with a pulse of 109, temperature 98.1, he is 97% on room air. GENERAL DESCRIPTION: An elderly male up in the chair in no distress. RESPIRATORY SYSTEM: Unlabored breathing. Clear to auscultation anteriorly. HEART: S1, S2. Regular rate and rhythm. ABDOMEN: Soft, no tenderness. LABS: Blood culture has been negative. IMPRESSION/PLAN: Patient with right hip pain, concern is likely for degenerative osteoarthritis. Clinical suspicion for septic arthritis. For surgery on Saturday. Blood culture negative. Hold on antibiotic. Continue supportive care. MMODL / IJN: [id number] /
--- NOTE | 2018-07-27 14:38 | P.PN ---
Subjective Progress Note Date: 07/27/18 Principal diagnosis: right hip pain Patient is a 78-year-old male past medical history of A. fib not on chronic anticoagulation, overactive bladder, and hypothyroidism who presented to the ER with complaints of intractable right hip pain. In the ER he underwent a CT which showed severe advanced degenerative joint disease in the right hip. Initial laboratory analysis showed slight hyponatremia with a sodium of 134 and slight anemia with hemoglobin of 12.2 but was otherwise unremarkable. Orthopedic surgery recommended admission to medicine for pain management. Patient was subsequently admitted as observation. He was noted to have an elevated ESR and CRP. There was concern that he could have a right hip infection and ID was consulted. MRI showed advanced hip joint distruction cannot rule out metastasis or infection but no definitive abscess. He has been struggling with constipation. Patient seen and examined at bedside. Pain is more tolerable at this point in time. Still having small bowel movements but nothing significant. Try to dose of lactulose this morning. Denies any nausea or vomiting. No chest pain or shortness of breath. Anxious anticipating surgery tomorrow. Objective - Vital Signs Vital signs: Vital Signs Temp 98.3 F 07/27/18 07:00 Pulse 108 H 07/27/18 07:00 Resp 16 07/27/18 07:00 BP 148/69 07/27/18 07:00 Pulse Ox 97 07/27/18 07:00 Intake & Output 07/26/18 07/27/18 07/27/18 18:59 06:59 18:59 Intake Total 1800 Output Total 600 Balance 1800 -600 Intake: Oral 1800 Output: Urine 600 Other: Voiding Method Urinal Urinal Urinal # Voids 2 # Bowel Movements 1 - Exam General: non toxic, no distress, appears at stated age Derm: warm, dry Head: atraumatic, normocephalic, symmetric Eyes: EOMI, no lid lesion, anicteric sclera Mouth: no lip lesion, mucus membranes moist Cardiovascular: S1S2 reg, no murmur, positive posterior tibial pulse bilateral, Lungs: CTA b/l, no rhonchi, no rales , no accessory muscle use Abdominal:+ BS, soft, nontender to palpation, no guarding, no appreciable organomegaly Ext: no gross muscle atrophy, no edema, no contractures Neuro: CN II-XI grossly intact, no focal neuro deficits Psych: Alert, oriented, appropriate affect - Labs CBC & Chem 7: 07/24/18 08:42 07/24/18 08:42 Labs: Microbiology - Last 24 Hours (Table) 07/24/18 08:49 Blood Culture - Preliminary Blood No Growth after 72 hours 07/24/18 08:42 Blood Culture - Preliminary Blood No Growth after 72 hours Assessment and Plan Assessment: Intractable right hip pain, concern for infection versus severe osteoarthritis -Elevated ESR and CRP, MRI without definitive infection -Orthopedic recommendations: plan is for OR on Saturday -ID recommendations: hip aspirate, not likely septic arthritis, no ABX at this time -Pain control wit percocet and morphine -Risk stratification: Patient is medically optimized for this non-cardiac procedure. EKG was reviewed by myself and revealed atrial fibrillation without any significant ST-T wave changes. He has been chest pain-free he was able to ambulate 1 city block and up a flight of stairs without chest pain or dyspnea approximately 3 weeks ago before his increased hip pain. RCRI 3.9 and acceptable risk. Constipation - lactulose - Continue miralax, senna and colace. A. fib -Aspirin stopped -Metoprolol -Monitor heart rate Hyperactive bladder -Status post removal of bladder stimulator. Hypothyroidism - continue with synthroid Peripheral edema - continue lasix Hyponatremia, mild -likely due to chronic lasix use - continue to monitor Obesity with BMI 35 - outpatient structured weight loss DVT prophylaxis: Heparin Discussed with: Patient, nursing Anticipated discharge: 3-[address]: [facility] to [facility] A total of 35 minutes was spent on the care of this complex patient more than 50 % of the time was spent in counseling and care coordination.
[2018-07-27] MEDS: FUROSEMIDE 20 MG TAB PO SCH (16:06)
[2018-07-27] MEDS: SODIUM CHLORIDE 0.9% 1,000 ML IV SCH (17:07)
[2018-07-27] MEDS: POLYETHYLENE GLYCOL 3350 17 GM POWD.PACK PO SCH (20:58)
[2018-07-27] MEDS: DOCUSATE 100 MG CAP PO SCH (20:58)
[2018-07-28] MEDS: HEPARIN SODIUM,PORCINE 5,000 UNIT/ML 1 ML VIAL SQ SCH ×4 (01:42→21:44)
[2018-07-28] MEDS: LEVOTHYROXINE 75 MCG TAB PO SCH (05:33)
[2018-07-28] MEDS: FUROSEMIDE 40 MG TAB PO SCH (09:13)
[2018-07-28] MEDS: oxyCODONE-APAP 7.5-325MG 1 EACH TAB PO PRN ×2 (09:14→19:01)
[2018-07-28] MEDS: DOCUSATE 100 MG CAP PO SCH ×2 (09:14→21:38)
[2018-07-28] MEDS: METOPROLOL TARTRATE 25 MG TAB PO SCH ×2 (09:14→21:38)
[2018-07-28] MEDS: LACTATED RINGERS 1,000 ML IV SCH ×2 (12:20→17:46)
[2018-07-28] MEDS ORDERED: fentaNYL (PF) 50 MCG/ML 2 ML AMP ONE (12:31)
[2018-07-28] MEDS ORDERED: diphenhydrAMINE 50 MG/ML 1 ML VIAL ONE (12:31)
[2018-07-28] MEDS ORDERED: KETAMINE 10 MG/ML 20 ML VIAL ONE (12:31)
[2018-07-28] MEDS ORDERED: MIDAZOLAM 2 MG/2 ML VIAL ONE (12:31)
[2018-07-28] MEDS ORDERED: PHENYLEPHRINE-0.9% NACL SYG 1 MG/10 ML SYRINGE ONE (12:31)
[2018-07-28] MEDS ORDERED: ceFAZolin 3,000 MG in SODIUM CHLORIDE 0.9% IRRIGATIO 3,000 ML IRRIGATION ONE ×2 (12:36→14:27)
[2018-07-28] MEDS ORDERED: SODIUM CHLORIDE 0.9% 100 ML with ceFAZolin 2,000 MG IV ONE ×2 (12:57)
[2018-07-28] MEDS ORDERED: TOBRAMYCIN SULFATE 1.2 GM VIAL MISCELLANE ONE (14:03)
[2018-07-28] MEDS ORDERED: VANCOMYCIN 1,000 MG VIAL MISCELLANE ONE (14:03)
[2018-07-28] MEDS ORDERED: LACTATED RINGERS 1,000 ML IV ONE (14:41)
[2018-07-28] MEDS ORDERED: HYDROmorphone 1 MG/ML 1 ML SYRINGE IVP ONE (16:06)
[2018-07-28] MEDS ORDERED: VANCOMYCIN IV PER PHARMACY 1 EACH MISC MISCELLANE PRN (16:41)
[2018-07-28] MEDS: SODIUM CHLORIDE 0.9% 1,000 ML IV SCH (17:18)
[2018-07-28] MEDS: FUROSEMIDE 20 MG TAB PO SCH (17:45)
[2018-07-28] MEDS: VANCOMYCIN 1,750 MG in SODIUM CHLORIDE 0.9% 500 ML 500 ML IVPB SCH (18:58)
[2018-07-28] MEDS ORDERED: LACTULOSE 20 GM/30 ML CUP PO PRN (19:26)
--- NOTE | 2018-07-28 19:27 | P.PN ---
Subjective Progress Note Date: 07/28/18 (delayed charting patient seen at 0845 and updated at 1815) Principal diagnosis: right hip pain Patient is a 78-year-old male past medical history of A. fib not on chronic anticoagulation, overactive bladder, and hypothyroidism who presented to the ER with complaints of intractable right hip pain. In the ER he underwent a CT which showed severe advanced degenerative joint disease in the right hip. Initial laboratory analysis showed slight hyponatremia with a sodium of 134 and slight anemia with hemoglobin of 12.2 but was otherwise unremarkable. Orthopedic surgery recommended admission to medicine for pain management. Patient was subsequently admitted as observation. He was noted to have an elevated ESR and CRP. There was concern that he could have a right hip infection and ID was consulted. MRI showed advanced hip joint destruction cannot rule out metastasis or infection but no definitive abscess. Plans were made for operation on 07/28 no antibiotics were administered as he did not have fever or leukocytosis. He has been struggling with constipation and was given multiple stool softners. He went to OR on 07/28 and was found to have septic arthritis, culture were taken and antibiotic beads placed per ortho verbal sign out. ID was contacted and he was placed on vanco and fortaz. Ortho suggested Transfer to [facility] and we are currently awaiting call back. Patient seen and examined at bedside. C/O right hip pain unchanged from yesterday, Small BM yesterday, no CP or SOB, no nausea. Objective - Vital Signs Vital signs: Vital Signs Temp 99.2 F 07/28/18 16:45 Pulse 92 07/28/18 17:45 Resp 16 07/28/18 16:45 BP 133/80 07/28/18 17:45 Pulse Ox 98 07/28/18 17:45 Intake & Output 07/28/18 07/28/18 07/29/18 06:59 18:59 06:59 Intake Total 1902 Output Total 25 Balance 1876 Intake: IV 1901 Output: Estimated Blood Loss 25 Other: Voiding Method Urinal Urinal # Voids 3 - Exam General: non toxic, no distress, appears at stated age Derm: warm, dry Head: atraumatic, normocephalic, symmetric Eyes: EOMI, no lid lesion, anicteric sclera Mouth: no lip lesion, mucus membranes moist Cardiovascular: S1S2 reg, no murmur, positive posterior tibial pulse bilateral, Lungs: CTA b/l, no rhonchi, no rales , no accessory muscle use Abdominal:+ BS, soft, nontender to palpation, no guarding, no appreciable organomegaly Ext: no gross muscle atrophy, no edema, no contractures Neuro: CN II-XI grossly intact, no focal neuro deficits Psych: Alert, oriented, appropriate affect - Labs CBC & Chem 7: 07/24/18 08:42 07/24/18 08:42 Labs: Microbiology - Last 24 Hours (Table) 07/28/18 14:15 Anaerobic Culture - Preliminary Hip - Right 07/28/18 14:15 Wound Culture - Preliminary Hip - Right 07/28/18 14:15 Wound Culture - Preliminary Hip - Right 07/28/18 14:15 Anaerobic Culture - Preliminary Hip - Right 07/28/18 14:15 Wound Culture - Preliminary Hip - Right 07/28/18 14:15 Anaerobic Culture - Preliminary Hip - Right 07/24/18 08:49 Blood Culture - Preliminary Blood No Growth after 96 hours 07/24/18 08:42 Blood Culture - Preliminary Blood No Growth after 96 hours Assessment and Plan Assessment: Septic arthritis - s/p OR with cultures taken -Elevated ESR and CRP -ID recommendations: await culture, vanco and ceftazidime -Check CBC and ESR in AM Intractable hip pain due to above. -Pain control with percocet and morphine Constipation - lactulose - Continue miralax, senna, colace, and lactulose A. fib -Aspirin stopped -Metoprolol -Monitor heart rate Hyperactive bladder -Status post removal of bladder stimulator. Hypothyroidism - continue with synthroid Peripheral edema - continue lasix Hyponatremia, mild -likely due to chronic lasix use - continue to monitor Obesity with BMI 35 - outpatient structured weight loss DVT prophylaxis: Heparin Discussed with: Patient, nursing, Ortho PA, [facility] transfer team Anticipated discharge: 3-[address]: likely transfer A total of 35 minutes was spent on the care of this complex patient more than 50 % of the time was spent in counseling and care coordination.
--- NOTE | 2018-07-28 20:26 | P.OP ---
Date of Procedure: 07/28/18 Procedure(s) Performed: PREOPERATIVE DIAGNOSIS: Right hip advanced osteoarthritis, possible septic arthritis POSTOPERATIVE DIAGNOSIS: Right hip septic arthritis OPERATION: Right hip irrigation and debridement with placement of antibiotic beads, hip culture x2, synovial biopsy. ANESTHESIA: Spinal ESTIMATED BLOOD LOSS: 150 ml. HAND PACKAGER: none COMPLICATIONS: None apparent FINDINGS: Active apparent infection of the hip joint with tracking of infection into iliopsoas bursa INDICATIONS:Mr. Urbano is a 78 year old male with significant end-stage osteoarthritis involving the right hip and commensurate severe symptoms. Recently he has had an exacerbation of his pain and MRI testing showed suspicion of infectious or malignant process. His C-reactive protein and erythrocyte sedimentation rates are both high, but he has a normal white blood cell count and has no history of fevers at home or in the hospital. Infectious disease consultation showed minimal suspicion of active infection. Considering his difficulty with walking and his advanced arthritic changes of his hip, we have arranged for him to undergo possible hip replacement if there is no active signs of infection in his hip. I have discussed the steps of the operation as well as potential risks and complications as being inclusive of, but not limited to: bleeding, infection, scarring, discomfort, blood vessel and/or nerve damage, need for further surgery, loosening, dislocation, wear, osteolysis , limb length inequality, fracture, blood clot, pulmonary embolism, , persistent limp, and other risks, including inability to perform replacement due to active infection or other process. The patient is aware of these risks and wishes to proceed with surgery and has signed a consent form. PROCEDURE: After appropriate consent was obtained, the patient was taken to the operating room and placed in supine position. Spinal anesthetic was administered and after confirmation of adequate anesthesia, the patient was placed into the lateral decubitus position with the right side up. Care was taken to make sure that all pressure points were adequately padded and the patient was stabilized to the table with a [place] hip positioner. The right hip was prepped and draped in the usual aseptic fashion using a combination of ChloraPrep and alcohol. Ioban drape was used for the case. Timeout was called, confirming patient identity, side, procedure, availability of implants, and administration of antibiotics was delayed until the hip capsule was opened and cultures were taken. The incision was created directly over the greater trochanter and carried slightly posteriorly for a posterior approach to the hip. The incision was then deepened down to subcutaneous tissue and fascia valente. Fascia valente was split in line with the incision and split proximally along the fibers of the gluteus nick. The underlying fibers of the muscle were teased apart using finger dissection and bleeding vessels were picked up and coagulated. Retractor was then placed posteriorly consisting of a blunt Gerard. The short external rotators and capsule were exposed using good visualization of the attachment of the external rotators to the femur was established. The short external rotators and capsule were released using electrocautery from their femoral attachments. Once this was performed, pus was noted from the hip joint and also into the iliopsoas bursa around the lesser trochanter. A hockey stick shaped incision was created in the capsule. Joint fluid was evacuated and the patient's hip was able to be dislocated fairly easily in order to inspect the femoral head and acetabulum. Erosions were present in the neck region just adjacent to the femoral head cartilage. The acetabulum had end stage osteoarthritic change. Biopsies were taken from the hip joint capsule and iliopsoas bursa. Cultures were also taken from these locations. A frozen section was sent STAT to pathology which was read as consistent with infection with greater than 5 WBC per HPF. As the hip appeared to be actively infected, attention was directed to irrigating and debriding the area of any obvious infected tissue. This was performed both sharply with a knife and bluntly using a ronguer. Copius pulsatile irrigation was performed using antibiotic containing solution. The posterior aspect of the femoral neck was drilled with a 2 mm drill bit to assess for intraosseous pus, which was positive. A small window was created in the posterior femoral neck to allow for pus drainage and access of the antibiotic beads. Irrigation into this window was performed using pusatile antibiotic saline. Preparation of antibiotic containing bioabsorbable beads ( calcium phosphate) was performed on the back table for implantation into the wound. Approximately 50 of these beads were allowed to fully cure and then placed around the hip joint posteriorly, from the joint down to the iliopsoas bursa. Final hemostasis was obtained using electrocautery. Closure of the capsule was not performed to allow the antibiotic beads to form a well-contained zone. The fascia valente was repaired using combination of #3 Vicryl suture in interrupted fashion and Quill and running fashion. 2-0 Vicryl suture was used for the subcutaneous tissues and 3-0 Quill for the skin. Dermabond tape was then applied to seal the wound to assist in keeping the antibiotic bead solution in situ. The patient tolerated the procedure well. There were no complications from the procedure, other than noting the obvious infection of the hip joint. Sterile dressing was then applied and the patient was carefully removed from the operating room table, placed on the stretcher and was taken to the recovery room in stable condition. Sponge and needle counts were correct.
[2018-07-28] MEDS: POLYETHYLENE GLYCOL 3350 17 GM POWD.PACK PO SCH (21:38)
--- NOTE | 2018-07-28 23:15 | PN ---
PROGRESS NOTE DATE OF SERVICE: 07/28/2018. REASON FOR FOLLOW UP: Right hip septic arthritis. INTERVAL HISTORY: The patient was taken to OR today. The patient is status post right hip irrigation debridement with placement of antibiotic beads. Culture has been obtained. Apparently the patient noticed to have a infection of the hip joint with trachea infection into the iliopsoas bursa. The patient was seen post surgery. Pain to the right hip post surgery, more of a dull aching to throbbing, 5 to 6/10 and no radiation. The patient denies any chest pain or shortness of breath or cough. No abdominal pain or any diarrhea. REVIEW OF SYSTEMS: Positive points have been mentioned in HPI. Rest of systems has been negative. Past medical and surgical history reviewed. No changes. Medication reviewed. PHYSICAL EXAMINATION: Blood pressure is 133/80 with a pulse of 90, temperature of 98. He is 98% on room air. General description is an elderly male up in the bed in no distress. HEENT examination: No pallor or scleral icterus. Oral mucosa membranes dry. No pharyngeal erythema or thrush. Neck trachea central. No thyromegaly. Lungs unlabored breathing. Clear to auscultation anteriorly. No wheeze or crackles. Heart S1, S2. Regular rate and rhythm. ABDOMEN: Soft, no tenderness. No guarding or rigidity. Extremities are no edema of the feet. Right hip incision is currently dressed. No obvious drainage. NEUROLOGIC: The patient is awake, alert, oriented times three. Mood and affect normal. LABS: No new labs have been obtained except the local cultures currently pending. DIAGNOSTIC IMPRESSION AND PLAN: Patient admitted to the hospital with intractable right hip pain in this patient with no fever and no elevated white count and his blood cultures negative. Concern was for possible advanced osteoarthritis. However operative findings suggestive of septic arthritis. Patient is status post debridement, antibiotic bead placement. We will empirically start the patient on vancomycin, pharmacy to dose, target of 15 along with Fortaz 2 g q.8h while watching his culture and clinical course closely. The patient will need a PICC line for outpatient antibiotic therapy with antibiotic choice depending upon the culture report. All his questions and concerns were answered. MMODL / IJN: [id number] /
[2018-07-29] MEDS: oxyCODONE-APAP 7.5-325MG 1 EACH TAB PO PRN ×4 (02:17→21:30)
[2018-07-29] MEDS: VANCOMYCIN 1,750 MG in SODIUM CHLORIDE 0.9% 500 ML 500 ML IVPB SCH ×2 (05:59→18:17)
[2018-07-29] MEDS: LEVOTHYROXINE 75 MCG TAB PO SCH (05:59)
[2018-07-29] MEDS: DOCUSATE 100 MG CAP PO SCH ×2 (08:23→21:31)
[2018-07-29] MEDS: SENNOSIDES-DOCUSATE SODIUM 1 EACH TAB PO SCH (08:23)
[2018-07-29] MEDS: FUROSEMIDE 40 MG TAB PO SCH (08:23)
[2018-07-29] MEDS: METOPROLOL TARTRATE 25 MG TAB PO SCH ×2 (08:23→21:31)
[2018-07-29] MEDS: LACTATED RINGERS 1,000 ML IV SCH (08:24)
--- NOTE | 2018-07-29 08:30 | P.PN ---
Progress Note - Text Progress Note Date: 07/29/18 Patient is a very pleasant 78-year-old male who is seen and examined at the bedside for follow-up evaluation evaluation in regards to his lumbar spine and hip. He is scheduled for a right total hip arthroplasty yesterday, 07/28/2018, to be performed by Dr. Angelo. During surgical intervention and active appearing infection of the right hip joint with tracking of infection into iliopsoas bursa was found. Total hip arthroplasty was not performed. Right hip irrigation debridement with placement of antibiotic beads, hip culture 2, and synovial biopsy was performed. Patient has remained nonweightbearing on the right lower extremity. His pain at the right hip has been controlled at rest. Patient has been discussed in detail with Dr. Angelo and Dr. Alcazar. Patient is currently planning to be transferred to tertiary facility for further treatment evaluation of his right hip. Patient is able to be improved by insurance, transfer will be planned to the [facility]. If he is unimproved by insurance for this transfer, he may be transferred to [facility]. Case management is currently working with the patient to help set up transfer. After completion of surgery yesterday, patient has been started on ceftazidime and vancomycin by Dr. Ly in infectious disease. Patient continues to be seen examined by medicine. Patient has been voiding without difficulty. He is currently sitting at the bedside. Patient denies nausea, vomiting, fever, or chills. Patient states he is no significant decline in his ability to ambulate and exacerbation of right hip pain over the past month to 2 months. He states he did have an injection at his right hip in May 2018 which did not provide any significant improvement of his pain. He states he has not experienced any fever or chills and has not felt sick in any regard since the exacerbation of his symptoms. Physical exam: Patient is awake, alert, and oriented 3 Vital signs stable Good chest excursion with deep inspiration and expiration Dorsiflexion, plantarflexion, and extensor hallucis longus positive sustained bilaterally Lower extremity strength 5/5 on the left Significant difficulty with performing hip flexion and knee extension on the right Motor strength of the lower extremity is 0/5 including hip flexion Motor strength in the lower extremity is 2/5 including the extension Dressing over the right hip remains clean, dry, and intact with no active drainage No signs or symptoms of DVT; no calf pain Neurovascularly intact Pertinent studies: MRI of the right hip performed on 07/24/2018: Advanced osteoarthritic changes present within the right hip with extensive remodeling, proximal femur showing femoral head shape change, extensive articular cartilage loss, signal within the right proximal femur is irregular and heterogeneous with corresponding lucency noted on CT, cystic foci are present within the femoral neck region; suspected chronic labral tear bilaterally; osteoarthritis of the left hip with remodeling of the left femoral head subchondral geode formation, reactive marrow signal change, and intermediate signal noted in the anterior femoral head on the left; advanced osteoarthritic changes present within the hips with extensive marrow signal changes noted, however, making it difficult to exclude infection or metastasis within the right hip; extensive soft tissue signal changes also noted are indeterminate CT of the pelvis taken on 07/22/2018: Right hip advanced end-stage degenerative changes with marked superior joint space loss and bone on bone formation with subchondral cystic change, loss of normal spherical shape and the right femoral head, moderate spurring superiorly at the head neck junction, and mild to moderate acetabular spurring seen at the right hip; left hip [id number] axial joint space loss with spurring along the superior neck junction and subchondral cystic change at the superior lateral acetabulum L4-5 mild to moderate degenerative disc disease with vacuum disc phenomenon; moderate multilevel anterior and lateral osteophytic spurring Assessment: Severe septic arthritis of the right hip Status post irrigation and debridement of the right hip with placement of antibiotic beads, hip culture 2, and synovial biopsy Right hip advanced end-stage osteoarthritis Inability to ambulate due to pain at the right hip Right hip pain Right lower extremity weakness with hip flexion and knee extension Left hip osteoarthritis Lumbar degenerative disc disease History of atrial fibrillation not on anticoagulation History of hyperactive bladder with previous bladder stimulator placed with recent removal of bladder stimulator approximately 2 days ago History of hypothyroidism Plan: 1. Patient has been discussed in detail with Dr. Angelo and Dr. Alcazar. Given the significant findings of severe septic arthritis of the right hip and severe right hip advanced end-stage osteoarthritis, we are currently planning for patient to be transferred to the [facility] to orthopedic services or to another tertiary facility for further treatment and evaluation in regards to his right hip. Patient will remain nonweightbearing on the right lower extremity. Case management is currently working on his transfer. If approved, patient may be transferred today to [facility] or another tertiary facility. 2. Patient will continue to be seen examined by Dr. Alcazar in medicine 3. Patient will continue seen and examined by Dr. Ly in infectious disease; continue antibiotics with vancomycin and ceftazidime as prescribed by Dr. Ly 4. Continue pain control with medications as prescribed 5. Patient has been discussed in detail with Dr. Angelo and he agrees with this plan
[2018-07-29 10:17] LABS: Basophils % (A) 0 %; Eosinophils # (A) 0.1 k/uL (0-0.7); Eosinophils % (A) 1 %; HCT 33.4 % (39.0-53.0); HGB 10.6 gm/dL (13.0-17.5); Lymphocytes # (A) 0.9 k/uL (1.0-4.8); Lymphocytes % (A) 10 %; MCHC 31.7 g/dL (31.0-37.0); MCV 91.5 fL (80.0-100.0); Mean Platelet Volume 5.9; Monocytes # (A) 0.9 k/uL (0-1.0); Monocytes % (A) 11 %; Neutrophils # (A) 6.4 k/uL (1.3-7.7); Neutrophils % (A) 76 %; Platelet Count 416 k/uL (150-450); RBC 3.65 m/uL (4.30-5.90); RDW 13.4 % (11.5-15.5); WBC 8.5 k/uL (3.8-10.6)
[2018-07-29 10:20] LABS: Anion Gap 7 mmol/L; Blood Urea Nitrogen 17 mg/dL (9-20); Calcium 9.3 mg/dL (8.4-10.2); Carbon Dioxide 29 mmol/L (22-30); Chloride 100 mmol/L (98-107); Glucose 121 mg/dL (74-99); Magnesium 1.7 mg/dL (1.6-2.3); Potassium 4.2 mmol/L (3.5-5.1); Sodium 136 mmol/L (137-145)
[2018-07-29] MEDS: HEPARIN SODIUM,PORCINE 5,000 UNIT/ML 1 ML VIAL SQ SCH ×2 (10:52→16:41)
[2018-07-29] MEDS ORDERED: NA PHOS,M-B/NA PHOS,DI-BA 133 ML ENEMA RECTAL ONE (11:29)
[2018-07-29 12:02] LABS: Erythrocyte Sedimentation Rate 74 mm/hr (0-15)
[2018-07-29] MEDS: FUROSEMIDE 20 MG TAB PO SCH (14:03)
[2018-07-29] MEDS: SODIUM CHLORIDE 0.9% 1,000 ML IV SCH (14:04)
--- NOTE | 2018-07-29 14:36 | PN ---
PROGRESS NOTE DATE OF SERVICE: 07/29/2018 REASON FOR FOLLOWUP: Right hip septic arthritis. INTERVAL HISTORY: The patient is afebrile. He is currently breathing comfortably. The patient denies having any chest pain or any cough, no worsening pain to the right hip area. Currently controlled with medication. PHYSICAL EXAMINATION: Blood pressure 108/63 with a pulse of 100, temperature 98.3, he is 93% on room air. General description is an elderly male, up in the bed in no distress. RESPIRATORY SYSTEM: Unlabored breathing, clear to auscultation anteriorly. HEART: S1, S2. Regular rate and rhythm. Right hip is currently dressed up. No obvious drainage on the dressing. LABS: Hemoglobin is 10.3, white count of 8.5. BUN of 17, creatinine 0.81. The right hip OR cultures currently pending. DIAGNOSTIC IMPRESSION AND PLAN: Patient with right hip septic arthritis, status post initial debridement. Cultures currently pending. Gram stain lesion shows a gram-positive cocci. The patient is currently covered with vancomycin and Fortaz to continue while waiting for the culture to finalize possible transfer of breast tissue for further debridement as per Ortho. present at bedside, questions were answered. MMODL / IJN: [id number] /
--- NOTE | 2018-07-29 18:33 | P.PN ---
Subjective Progress Note Date: 07/29/18 (delayed charting patient seen at 1300) Principal diagnosis: right hip pain Patient is a 78-year-old male past medical history of A. fib not on chronic anticoagulation, overactive bladder, and hypothyroidism who presented to the ER with complaints of intractable right hip pain. In the ER he underwent a CT which showed severe advanced degenerative joint disease in the right hip. Initial laboratory analysis showed slight hyponatremia with a sodium of 134 and slight anemia with hemoglobin of 12.2 but was otherwise unremarkable. Orthopedic surgery recommended admission to medicine for pain management. Patient was subsequently admitted as observation. He was noted to have an elevated ESR and CRP. There was concern that he could have a right hip infection and ID was consulted. MRI showed advanced hip joint destruction cannot rule out metastasis or infection but no definitive abscess. Plans were made for operation on 07/28 no antibiotics were administered as he did not have fever or leukocytosis. He has been struggling with constipation and was given multiple stool softners. He went to OR on 07/28 and was found to have septic arthritis, culture were taken and antibiotic beads placed per ortho verbal sign out. ID was contacted and he was placed on vanco and fortaz. Ortho suggested Transfer to [facility], he has been accepted and is currently awaiting bed placement. Patient seen and examined at bedside. Increased right hip pain today, still no BM, no chest pain, no SOB. Per ortho NWB right hip. Objective - Vital Signs Vital signs: Vital Signs Temp 97.5 F L 07/29/18 14:45 Pulse 106 H 07/29/18 14:45 Resp 16 07/29/18 14:45 BP 103/55 07/29/18 14:45 Pulse Ox 96 07/29/18 14:45 Intake & Output 07/28/18 07/29/18 07/29/18 18:59 06:59 18:59 Intake Total 1902 0 600 Output Total 25 Balance 1877 0 600 Intake: IV 1902 Oral 0 600 Output: Estimated Blood Loss 25 Other: Voiding Method Urinal Urinal Urinal # Voids 3 5 # Bowel Movements 2 - Exam General: non toxic, no distress, appears at stated age Derm: warm, dry Head: atraumatic, normocephalic, symmetric Eyes: EOMI, no lid lesion, anicteric sclera Mouth: no lip lesion, mucus membranes moist Cardiovascular: S1S2 reg, no murmur, positive posterior tibial pulse bilateral, Lungs: CTA b/l, no rhonchi, no rales , no accessory muscle use Abdominal:+ BS, soft, nontender to palpation, no guarding, no appreciable organomegaly Ext: no gross muscle atrophy, 1+ edema b/l, no contractures Neuro: CN II-XI grossly intact, no focal neuro deficits Psych: Alert, oriented, appropriate affect - Labs CBC & Chem 7: 07/29/18 09:43 07/29/18 09:43 Labs: Abnormal Lab Results - Last 24 Hours (Table) 07/29/18 07/29/18 Range/Units 09:43 09:43 RBC 3.65 L (4.30-5.90) m/uL Hgb 10.6 L (13.0-17.5) gm/dL Hct 33.4 L (39.0-53.0) % Lymphocytes # 0.9 L (1.0-4.8) k/uL ESR 74 H (0-15) mm/hr Sodium 136 L (137-145) mmol/L Glucose 121 H (74-99) mg/dL Microbiology - Last 24 Hours (Table) 07/28/18 14:15 Gram Stain - Preliminary Hip - Right Wound Culture - Preliminary 07/28/18 14:15 Gram Stain - Preliminary Hip - Right Wound Culture - Preliminary 07/24/18 08:49 Blood Culture - Preliminary Blood No Growth after 120 hours 07/24/18 08:42 Blood Culture - Preliminary Blood No Growth after 120 hours 07/28/18 14:15 Gram Stain - Preliminary Hip - Right Wound Culture - Preliminary 07/28/18 14:15 Anaerobic Culture - Preliminary Hip - Right 07/28/18 14:15 Anaerobic Culture - Preliminary Hip - Right 07/28/18 14:15 Anaerobic Culture - Preliminary Hip - Right Assessment and Plan Assessment: Septic arthritis - s/p OR with washout, AB bead placement with cultures taken, Gram stain +GPC -Elevated ESR and CRP -ID recommendations: await culture, vanco and ceftazidime -Check CBC and ESR in AM Intractable hip pain due to above. -Pain control with percocet and morphine Constipation - lactulose - Continue miralax, senna, colace, and lactulose Acute blood loss anemia - anticipated - follow CBC - no indication for transfusion at this time. A. fib -Aspirin stopped -Metoprolol -Monitor heart rate Hyperactive bladder -Status post removal of bladder stimulator. Hypothyroidism - continue with synthroid Peripheral edema - continue lasix Hyponatremia, mild -likely due to chronic lasix use - continue to monitor Obesity with BMI 35 - outpatient structured weight loss DVT prophylaxis: Heparin Discussed with: Patient, nursing, Anticipated discharge: [address]: likely transfer A total of 35 minutes was spent on the care of this complex patient more than 50 % of the time was spent in counseling and care coordination.
[2018-07-29] MEDS: POLYETHYLENE GLYCOL 3350 17 GM POWD.PACK PO SCH (21:31)
[2018-07-30] MEDS: HEPARIN SODIUM,PORCINE 5,000 UNIT/ML 1 ML VIAL SQ SCH ×3 (01:27→16:32)
[2018-07-30] MEDS: oxyCODONE-APAP 7.5-325MG 1 EACH TAB PO PRN ×4 (03:03→21:43)
[2018-07-30] MEDS: LEVOTHYROXINE 75 MCG TAB PO SCH (06:03)
[2018-07-30] MEDS: VANCOMYCIN 1,750 MG in SODIUM CHLORIDE 0.9% 500 ML 500 ML IVPB SCH ×2 (06:04→17:32)
[2018-07-30 08:24] LABS: HCT 31.8 % (39.0-53.0); HGB 9.8 gm/dL (13.0-17.5); Hypochromasia Slight; MCH 28.9 pg (25.0-35.0); MCHC 30.9 g/dL (31.0-37.0); MCV 93.4 fL (80.0-100.0); Mean Platelet Volume 6.7; Platelet Count 363 k/uL (150-450); RBC 3.41 m/uL (4.30-5.90); RDW 13.5 % (11.5-15.5); WBC 8.8 k/uL (3.8-10.6)
[2018-07-30 08:32] LABS: Anion Gap 7 mmol/L; Blood Urea Nitrogen 17 mg/dL (9-20); Calcium 8.8 mg/dL (8.4-10.2); Carbon Dioxide 29 mmol/L (22-30); Chloride 100 mmol/L (98-107); Glucose 96 mg/dL (74-99); Potassium 3.8 mmol/L (3.5-5.1); Sodium 136 mmol/L (137-145)
[2018-07-30] MEDS: FUROSEMIDE 40 MG TAB PO SCH (08:38)
[2018-07-30] MEDS: DOCUSATE 100 MG CAP PO SCH ×2 (08:38→21:43)
[2018-07-30] MEDS: METOPROLOL TARTRATE 25 MG TAB PO SCH ×2 (08:38→21:43)
[2018-07-30] MEDS: SENNOSIDES-DOCUSATE SODIUM 1 EACH TAB PO SCH (08:38)
[2018-07-30 09:24] VITALS: BMI 34.9
[2018-07-30] MEDS: LACTATED RINGERS 1,000 ML IV SCH (11:24)
--- NOTE | 2018-07-30 11:50 | PN ---
PROGRESS NOTE DATE OF SERVICE: 07/30/2018 REASON FOR FOLLOWUP: Right hip septic arthritis. INTERVAL HISTORY: The patient is currently afebrile, has been breathing comfortably. Pain to the right hip is currently controlled with pain medication. Denies having any chest pain. No shortness of breath. No cough and no diarrhea. PHYSICAL EXAMINATION: Blood pressure 101/52 with a pulse of 92, temperature 98.8, he is 98% on room air. General description is an elderly male, up in the bed in no distress. RESPIRATORY SYSTEM: Unlabored breathing, clear to auscultation anteriorly. HEART: S1, S2. Regular rate and rhythm. ABDOMEN: Soft, no tenderness. Right hip wound is currently dressed up. No obvious drainage on the dressing. LABS: Hemoglobin 9.1, white count of 8.8 with a BUN of 17, creatinine 0.64. DIAGNOSTIC IMPRESSION AND PLAN: Patient with right hip septic arthritis, status post debridement. Patient awaiting transfer to a nursing admission for more extensive debridement. He is currently covered with vancomycin for this while waiting for the culture to finalize. Questions and concerns were answered. Will continue supportive care. MMODL / IJN: [id number] /
--- NOTE | 2018-07-30 13:52 | P.PN ---
Subjective Progress Note Date: 07/30/18 Principal diagnosis: right hip pain Patient is a 78-year-old male past medical history of A. fib not on chronic anticoagulation, overactive bladder, and hypothyroidism who presented to the ER with complaints of intractable right hip pain. In the ER he underwent a CT which showed severe advanced degenerative joint disease in the right hip. Initial laboratory analysis showed slight hyponatremia with a sodium of 134 and slight anemia with hemoglobin of 12.2 but was otherwise unremarkable. Orthopedic surgery recommended admission to medicine for pain management. Patient was subsequently admitted as observation. He was noted to have an elevated ESR and CRP. There was concern that he could have a right hip infection and ID was consulted. MRI showed advanced hip joint destruction cannot rule out metastasis or infection but no definitive abscess. Plans were made for operation on 07/28 no antibiotics were administered as he did not have fever or leukocytosis. He has been struggling with constipation and was given multiple stool softners. He went to OR on 07/28 and was found to have septic arthritis, culture were taken and antibiotic beads placed per ortho verbal sign out. ID was contacted and he was placed on vanco and fortaz. His aerobic culturees came back with no growth, gram stain showed rare GPC. Ortho suggested Transfer to [facility], he has been accepted and is currently awaiting bed placement. Patient seen and examined at bedside. Increased right hip pain today, still no BM, no chest pain, no SOB. Per ortho NWB right hip. Objective - Vital Signs Vital signs: Vital Signs Temp 98.8 F 07/30/18 06:15 Pulse 92 07/30/18 06:15 Resp 17 07/30/18 08:00 BP 101/62 07/30/18 06:15 Pulse Ox 98 07/30/18 06:15 Intake & Output 07/29/18 07/30/18 07/30/18 18:59 06:59 18:59 Intake Total 600 360 Output Total 400 Balance 600 -400 360 Weight 104.326 kg Intake: Oral 600 360 Output: Urine 400 Other: Voiding Method Urinal Urinal Urinal # Voids 5 2 # Bowel Movements 2 1 - Exam General: non toxic, no distress, appears at stated age Derm: dressing in place over right hip, warm, dry Head: atraumatic, normocephalic, symmetric Eyes: EOMI, no lid lesion, anicteric sclera Mouth: no lip lesion, mucus membranes moist Cardiovascular: S1S2 reg, no murmur, positive posterior tibial pulse bilateral, Lungs: CTA b/l, no rhonchi, no rales , no accessory muscle use Abdominal:+ BS, soft, nontender to palpation, no guarding, no appreciable organomegaly Ext: no gross muscle atrophy, 1+ edema b/l, no contractures Neuro: CN II-XI grossly intact, no focal neuro deficits Psych: Alert, oriented, appropriate affect - Labs CBC & Chem 7: 07/30/18 07:51 07/30/18 07:51 Labs: Abnormal Lab Results - Last 24 Hours (Table) 07/30/18 07/30/18 Range/Units 07:51 07:51 RBC 3.41 L (4.30-5.90) m/uL Hgb 9.8 L (13.0-17.5) gm/dL Hct 31.8 L (39.0-53.0) % MCHC 30.9 L (31.0-37.0) g/dL Sodium 136 L (137-145) mmol/L Creatinine 0.64 L (0.66-1.25) mg/dL Microbiology - Last 24 Hours (Table) 07/24/18 08:49 Blood Culture - Final Blood No Growth after 144 hours 07/24/18 08:42 Blood Culture - Final Blood No Growth after 144 hours 07/28/18 14:15 Gram Stain - Final Hip - Right Wound Culture - Final 07/28/18 14:15 Gram Stain - Final Hip - Right Wound Culture - Final 07/28/18 14:15 Gram Stain - Final Hip - Right Wound Culture - Final Assessment and Plan Assessment: Septic arthritis - Awaiting bed at of for continued washout and debridement - s/p OR with washout, AB bead placement with cultures taken, Gram stain +GPC -Elevated ESR and CRP: ESR relatively unchanged from prior to surgery -ID recommendations: await culture, vanco and ceftazidime Intractable hip pain due to above. -Pain control with percocet and morphine Constipation - lactulose dose increased - received enema with BM X 2 07/29 but still feels constipated - Continue miralax, senna, colace, and lactulose Acute blood loss anemia - anticipated - follow CBC - no indication for transfusion at this time. A. fib -Aspirin stopped for additional surgical interventions if needed -Metoprolol -Monitor heart rate Hyperactive bladder -Status post removal of bladder stimulator. Had been inplace near right hip Hypothyroidism - continue with synthroid Peripheral edema - continue lasix Hyponatremia, mild -likely due to chronic lasix use - continue to monitor Obesity with BMI 35 - outpatient structured weight loss DVT prophylaxis: Heparin Discussed with: Patient, nursing, Anticipated discharge: [address]: likely transfer A total of 35 minutes was spent on the care of this complex patient more than 50 % of the time was spent in counseling and care coordination.
[2018-07-30] MEDS: FUROSEMIDE 20 MG TAB PO SCH (14:52)
[2018-07-30] MEDS: SODIUM CHLORIDE 0.9% 1,000 ML IV SCH (14:55)
--- NOTE | 2018-07-30 15:13 | P.PN ---
Progress Note - Text Progress Note Date: 07/30/18 Patient is a very pleasant 78-year-old male who is seen and examined at the bedside for follow-up evaluation evaluation in regards to his lumbar spine and hip. He has not had any significant change in his symptoms since being seen and examined yesterday. He was scheduled for a right total hip arthroplasty 07/28/2018, to be performed by Dr. Angelo. During surgical intervention and active appearing infection of the right hip joint with tracking of infection into iliopsoas bursa was found. Total hip arthroplasty was not performed. Right hip irrigation debridement with placement of antibiotic beads , hip culture 2, and synovial biopsy was performed. Patient has remained nonweightbearing on the right lower extremity. His pain at the right hip has been controlled at rest. Patient has been discussed in detail with Dr. Angelo and Dr. Alcazar. Patient was discussed in detail with case management and nursing today. Patient is currently planning to be transferred to tertiary facility for further treatment evaluation of his right hip. Patient has been approved for transfer to the [facility]. Currently there are no beds available and the patient will continue to remain here and [facility] until a bed is available at which time he will be transferred to the [facility]. Patient continues to be on IV antibiotic medication including ceftazidime and vancomycin by Dr. Ly in infectious disease. Patient continues to be seen examined by medicine. Patient has been voiding without difficulty. He is currently sitting at the bedside. He has had some difficulty with constipation. He had an enema yesterday. He was able to have one small bowel movement today. Patient denies nausea, vomiting, fever , or chills. Patient states he has had significant decline in his ability to ambulate and exacerbation of right hip pain over the past month to 2 months. He states he did have an injection at his right hip in May 2018 which did not provide any significant improvement of his pain. He states he has not experienced any fever or chills and has not felt sick in any regard since the exacerbation of his symptoms. Physical exam: Patient is awake, alert, and oriented 3 Vital signs stable Good chest excursion with deep inspiration and expiration Dorsiflexion, plantarflexion, and extensor hallucis longus positive sustained bilaterally Lower extremity strength 5/5 on the left Significant difficulty with performing hip flexion and knee extension on the right Motor strength of the lower extremity is 0/5 including hip flexion Motor strength in the lower extremity is 2/5 including the extension Dressing over the right hip remains clean, dry, and intact with no active drainage No signs or symptoms of DVT; no calf pain Neurovascularly intact Pertinent studies: MRI of the right hip performed on 07/24/2018: Advanced osteoarthritic changes present within the right hip with extensive remodeling, proximal femur showing femoral head shape change, extensive articular cartilage loss, signal within the right proximal femur is irregular and heterogeneous with corresponding lucency noted on CT, cystic foci are present within the femoral neck region; suspected chronic labral tear bilaterally; osteoarthritis of the left hip with remodeling of the left femoral head subchondral geode formation, reactive marrow signal change, and intermediate signal noted in the anterior femoral head on the left; advanced osteoarthritic changes present within the hips with extensive marrow signal changes noted, however, making it difficult to exclude infection or metastasis within the right hip; extensive soft tissue signal changes also noted are indeterminate CT of the pelvis taken on 07/22/2018: Right hip advanced end-stage degenerative changes with marked superior joint space loss and bone on bone formation with subchondral cystic change, loss of normal spherical shape and the right femoral head, moderate spurring superiorly at the head neck junction, and mild to moderate acetabular spurring seen at the right hip; left hip [id number] axial joint space loss with spurring along the superior neck junction and subchondral cystic change at the superior lateral acetabulum L4-5 mild to moderate degenerative disc disease with vacuum disc phenomenon; moderate multilevel anterior and lateral osteophytic spurring Assessment: Severe septic arthritis of the right hip Status post irrigation and debridement of the right hip with placement of antibiotic beads, hip culture 2, and synovial biopsy Right hip advanced end-stage osteoarthritis Inability to ambulate due to pain at the right hip Right hip pain Right lower extremity weakness with hip flexion and knee extension Left hip osteoarthritis Lumbar degenerative disc disease History of atrial fibrillation not on anticoagulation History of hyperactive bladder with previous bladder stimulator placed with recent removal of bladder stimulator approximately 2 days ago History of hypothyroidism Plan: 1. We will continue with the plan as previously set forth. Given the significant findings of severe septic arthritis of the right hip and severe right hip advanced end-stage osteoarthritis, we are currently planning for patient to be transferred to the [facility] to orthopedic services. Patient has been approved for transfer but currently is not a bed available. Once his bed is available patient will be cleared for transfer to [facility]. Patient's case continues to be handled managed by case management and medicine. Patient will remain nonweightbearing on the right lower extremity. 2. Patient will continue to be seen examined by Dr. Alcazar in medicine 3. Patient will continue seen and examined by Dr. Ly in infectious disease; continue antibiotics with vancomycin and ceftazidime as prescribed by Dr. Ly 4. Continue pain control with medications as prescribed
[2018-07-30] MEDS: POLYETHYLENE GLYCOL 3350 17 GM POWD.PACK PO SCH (21:43)
[2018-07-31] MEDS: HEPARIN SODIUM,PORCINE 5,000 UNIT/ML 1 ML VIAL SQ SCH ×3 (00:11→16:27)
[2018-07-31] MEDS: oxyCODONE-APAP 7.5-325MG 1 EACH TAB PO PRN ×3 (03:27→16:34)
[2018-07-31] MEDS: VANCOMYCIN 1,750 MG in SODIUM CHLORIDE 0.9% 500 ML 500 ML IVPB SCH ×2 (06:21→18:50)
[2018-07-31] MEDS: LEVOTHYROXINE 75 MCG TAB PO SCH (06:21)
--- NOTE | 2018-07-31 08:28 | P.PN ---
<HaoHermila - Last Filed: 07/31/18 08:22> Subjective Progress Note Date: 07/31/18 Principal diagnosis: Right hip septic arthritis. Status post I&D right hip with insertion antibiotic beads. Patient is a very pleasant 78-year-old male who is seen and examined at the bedside for follow-up evaluation evaluation in regards to his lumbar spine and hip. He has not had any significant change in his symptoms since being seen and examined yesterday. He states that his right hip pain is manageable but his back pain has been worse. He was scheduled for a right total hip arthroplasty 07/28/2018, to be performed by Dr. Angelo. During surgical intervention and active appearing infection of the right hip joint with tracking of infection into iliopsoas bursa was found. Total hip arthroplasty was not performed. Right hip irrigation debridement with placement of antibiotic beads, hip culture 2, and synovial biopsy was performed. Patient has remained nonweightbearing on the right lower extremity. His pain at the right hip has been controlled at rest. Patient has been discussed in detail with Dr. Angelo and Dr. Alcazar. Patient was discussed in detail with case management and nursing today. Patient is currently planning to be transferred to tertiary facility for further treatment evaluation of his right hip. Patient has been approved for transfer to the [facility]. Currently there are no beds available and the patient will continue to remain here and [facility] until a bed is available at which time he will be transferred to the [facility]. Patient continues to be on IV antibiotic medication including ceftazidime and vancomycin by Dr. Ly in infectious disease. Patient continues to be seen examined by medicine. Patient has been voiding without difficulty. He is currently sitting at the bedside. He has had some difficulty with constipation. He had an enema yesterday. He was able to have one small bowel movement yesterday. He is passing gas today. Patient denies nausea, vomiting, fever, or chills. Patient states he has had significant decline in his ability to ambulate and exacerbation of right hip pain over the past month to 2 months. He states he did have an injection at his right hip in May 2018 which did not provide any significant improvement of his pain. He states he has not experienced any fever or chills and has not felt sick in any regard since the exacerbation of his symptoms. Objective - Vital Signs Vital signs: Vital Signs Temp 97.6 F 07/31/18 07:00 Pulse 93 07/31/18 07:00 Resp 16 07/31/18 07:00 BP 126/65 07/31/18 07:00 Pulse Ox 97 07/31/18 07:00 Intake & Output 07/30/18 07/31/18 07/31/18 18:59 06:59 18:59 Intake Total 360 100 Output Total 250 Balance 360 -150 Weight 104.326 kg Intake: Oral 360 100 Output: Drainage 250 Bilateral 250 Other: Voiding Method Urinal # Voids 3 # Bowel Movements 1 - Exam Exam of the right hip reveals that his incision is clean and dry. Dermabond glue is intact. There is no minimal drainage on the Telfa dressing. His dressing is changed today. He is able to stand with a walker maintaining nonweightbearing to the right lower extremity. He has full foot and ankle motion without difficulty or pain. Neurovascular status of lower extremity is intact. - Labs CBC & Chem 7: 07/30/18 07:51 07/30/18 07:51 Labs: Abnormal Lab Results - Last 24 Hours (Table) 07/30/18 07/30/18 Range/Units 07:51 07:51 RBC 3.41 L (4.30-5.90) m/uL Hgb 9.8 L (13.0-17.5) gm/dL Hct 31.8 L (39.0-53.0) % MCHC 30.9 L (31.0-37.0) g/dL Sodium 136 L (137-145) mmol/L Creatinine 0.64 L (0.66-1.25) mg/dL Microbiology - Last 24 Hours (Table) 07/28/18 14:15 Anaerobic Culture - Preliminary Hip - Right 07/28/18 14:15 Anaerobic Culture - Preliminary Hip - Right 07/28/18 14:15 Anaerobic Culture - Preliminary Hip - Right 07/24/18 08:49 Blood Culture - Final Blood No Growth after 144 hours 07/24/18 08:42 Blood Culture - Final Blood No Growth after 144 hours 07/28/18 14:15 Gram Stain - Final Hip - Right Wound Culture - Final 07/28/18 14:15 Gram Stain - Final Hip - Right Wound Culture - Final 07/28/18 14:15 Gram Stain - Final Hip - Right Wound Culture - Final Assessment and Plan (1) Septic arthritis of hip Current Visit: Yes Status: Acute Code(s): M00.9 - PYOGENIC ARTHRITIS, UNSPECIFIED SNOMED Code(s): 551921556 (2) History of atrial fibrillation Current Visit: Yes Status: Acute Code(s): Z86.79 - PERSONAL HISTORY OF OTHER DISEASES OF THE CIRCULATORY SYSTEM SNOMED Code(s): 355667181 (3) History of hypothyroidism Current Visit: Yes Status: Acute Code(s): Z86.39 - PERSONAL HISTORY OF ENDO , NUTRITIONAL AND METABOLIC DISEASE SNOMED Code(s): 199173606 (4) Inability to ambulate due to hip Current Visit: Yes Status: Acute Code(s): R26.2 - DIFFICULTY IN WALKING, NOT ELSEWHERE CLASSIFIED SNOMED Code(s): 656554484 (5) Intractable pain Current Visit: Yes Status: Acute Code(s): R52 - PAIN, UNSPECIFIED SNOMED Code(s): 79029100 (6) Lumbar degenerative disc disease Current Visit: Yes Status: Acute Code(s): M51.36 - OTHER INTERVERTEBRAL DISC DEGENERATION, LUMBAR REGION SNOMED Code(s): 38783910 Plan: The clinical findings are discussed with the patient and nursing staff. We're awaiting transfer to [facility] for definitive care for his septic arthritis right hip. Dressing was changed today. We'll continue to follow until transfer. Continue nonweightbearing to the right lower extremity. <Dalila Ron - Last Filed: 07/31/18 08:41> Objective - Vital Signs Vital signs: Vital Signs Temp 97.6 F 07/31/18 07:00 Pulse 93 07/31/18 07:00 Resp 16 07/31/18 07:00 BP 126/65 07/31/18 07:00 Pulse Ox 97 07/31/18 07:00 Intake & Output 07/30/18 07/31/18 07/31/18 18:59 06:59 18:59 Intake Total 360 100 Output Total 250 Balance 360 -150 Weight 104.326 kg Intake: Oral 360 100 Output: Drainage 250 Bilateral 250 Other: Voiding Method Urinal # Voids 3 # Bowel Movements 1 - Labs CBC & Chem 7: 07/30/18 07:51 07/30/18 07:51 Labs: Microbiology - Last 24 Hours (Table) 07/28/18 14:15 Anaerobic Culture - Preliminary Hip - Right 07/28/18 14:15 Anaerobic Culture - Preliminary Hip - Right 07/28/18 14:15 Anaerobic Culture - Preliminary Hip - Right 07/24/18 08:49 Blood Culture - Final Blood No Growth after 144 hours 07/24/18 08:42 Blood Culture - Final Blood No Growth after 144 hours 07/28/18 14:15 Gram Stain - Final Hip - Right Wound Culture - Final 07/28/18 14:15 Gram Stain - Final Hip - Right Wound Culture - Final 07/28/18 14:15 Gram Stain - Final Hip - Right Wound Culture - Final Assessment and Plan Plan: I was able to see the patient at bedside as well. He feels his acute hip pain is significant improved since his surgery. He still having some back pain which is chronic for him. He is not having any neurologic deficit in his lower extremities. He is maintaining his nonweightbearing status. His transfers is excepted but we're awaiting a bed at [facility] for his definitive treatment for his septic right hip. The patient's questions were answered to best of our ability and he understands.
[2018-07-31] MEDS: METOPROLOL TARTRATE 25 MG TAB PO SCH ×2 (08:51→21:00)
[2018-07-31] MEDS: FUROSEMIDE 40 MG TAB PO SCH (08:51)
[2018-07-31] MEDS: DOCUSATE 100 MG CAP PO SCH ×2 (08:51→21:00)
[2018-07-31] MEDS: SENNOSIDES-DOCUSATE SODIUM 1 EACH TAB PO SCH (08:51)
[2018-07-31 09:51] LABS: HCT 34.4 % (39.0-53.0); HGB 10.4 gm/dL (13.0-17.5); Hypochromasia Slight; MCH 28.6 pg (25.0-35.0); MCHC 30.3 g/dL (31.0-37.0); MCV 94.4 fL (80.0-100.0); Mean Platelet Volume 6.6; Platelet Count 405 k/uL (150-450); RBC 3.65 m/uL (4.30-5.90); RDW 13.6 % (11.5-15.5); WBC 8.2 k/uL (3.8-10.6)
[2018-07-31 10:06] LABS: Anion Gap 9 mmol/L; Blood Urea Nitrogen 13 mg/dL (9-20); Carbon Dioxide 31 mmol/L (22-30); Chloride 95 mmol/L (98-107); Glucose 132 mg/dL (74-99); Potassium 3.5 mmol/L (3.5-5.1); Sodium 135 mmol/L (137-145)
[2018-07-31] MEDS: SODIUM CHLORIDE 0.9% 1,000 ML IV SCH (12:01)
--- NOTE | 2018-07-31 12:10 | P.PN ---
Subjective Progress Note Date: 07/31/18 Principal diagnosis: Patient feels okay no chest pain no shortness of breath states that he still weak Constitutional: No acute distress, conversant, pleasant Eyes: Anicteric sclerae, moist conjunctiva, no lid-lag PERRLA ENMT: NC/AT Oropharynx clear, no erythema, exudates Neck: Supple, FROM, no masses, or JVD No carotid bruits No thyromegaly Lungs: Clear to auscultation Cardiovascular: Heart regular in rate and rhythm, No murmurs, gallops, or rubs No peripheral edema Abdominal: Soft Nontender, no guarding, Skin: Normal temperature, tone, texture, turgor No induration No subcutaneous nodules No rash, lesions No ulcers Extremities: Psychiatric:Alert and oriented to person, place and time Appropriate affect Intact judgement Neuro: generelized weakness Vital Signs - 8 hr 07/31/18 07/31/18 07:00 08:00 Temperature 97.6 F Pulse Rate [ 93 Pulse Oximetery ] Respiratory 16 16 Rate Blood Pressure 126/65 [Right Arm] O2 Sat by Pulse 97 Oximetry Septic arthritis - Awaiting bed at [facility] for continued washout and debridement - s/p OR with washout, AB bead placement with cultures taken, Gram stain +GPC -Elevated ESR and CRP: ESR relatively unchanged from prior to surgery -ID recommendations: await culture, vanco and ceftazidime Overall the condition of the patient is stable still no beds available at [facility] will continue current antibiotics no evidence of sepsis at this time Intractable hip pain due to above. -Pain control with percocet and morphine Appears to be comfortable at this time Constipation No evidence of obstruction at this time Acute blood loss anemia - anticipated - follow CBC A. fib -Aspirin stopped for additional surgical interventions if needed -Metoprolol -Monitor heart rate Hyperactive bladder -Status post removal of bladder stimulator. Had been inplace near right hip Hypothyroidism - continue with synthroid Peripheral edema - continue lasix Hyponatremia, mild - No symptoms noted Obesity with BMI 35 - Objective - Vital Signs Vital signs: Vital Signs Temp 97.6 F 07/31/18 07:00 Pulse 93 07/31/18 07:00 Resp 16 07/31/18 08:00 BP 126/65 07/31/18 07:00 Pulse Ox 97 07/31/18 07:00 Intake & Output 07/30/18 07/31/18 07/31/18 18:59 06:59 18:59 Intake Total 360 100 Output Total 250 400 Balance 360 -150 -400 Weight 104.326 kg Intake: Oral 360 100 Output: Drainage 250 Bilateral 250 Urine 400 Other: Voiding Method Urinal Urinal # Voids 3 # Bowel Movements 1 - Labs CBC & Chem 7: 07/31/18 09:26 07/31/18 09:26 Labs: Abnormal Lab Results - Last 24 Hours (Table) 07/31/18 07/31/18 Range/Units 09:26 09:26 RBC 3.65 L (4.30-5.90) m/uL Hgb 10.4 L (13.0-17.5) gm/dL Hct 34.4 L (39.0-53.0) % MCHC 30.3 L (31.0-37.0) g/dL Sodium 135 L (137-145) mmol/L Chloride 95 L (98-107) mmol/L Carbon Dioxide 31 H (22-30) mmol/L Creatinine 0.60 L (0.66-1.25) mg/dL Glucose 132 H (74-99) mg/dL Microbiology - Last 24 Hours (Table) 07/28/18 14:15 Anaerobic Culture - Preliminary Hip - Right 07/28/18 14:15 Anaerobic Culture - Preliminary Hip - Right 07/28/18 14:15 Anaerobic Culture - Preliminary Hip - Right 07/24/18 08:49 Blood Culture - Final Blood No Growth after 144 hours 07/24/18 08:42 Blood Culture - Final Blood No Growth after 144 hours 07/28/18 14:15 Gram Stain - Final Hip - Right Wound Culture - Final 07/28/18 14:15 Gram Stain - Final Hip - Right Wound Culture - Final 07/28/18 14:15 Gram Stain - Final Hip - Right Wound Culture - Final
[2018-07-31] MEDS: FUROSEMIDE 20 MG TAB PO SCH (13:23)
[2018-07-31] MEDS: POLYETHYLENE GLYCOL 3350 17 GM POWD.PACK PO SCH (21:01)
--- NOTE | 2018-07-31 21:06 | PN ---
PROGRESS NOTE DATE OF SERVICE: 07/31/2018 REASON FOR FOLLOWUP: Right hip septic arthritis. INTERVAL HISTORY: The patient is currently afebrile. The patient has been breathing comfortably. The patient denies having any chest pain or cough. The right hip pain is currently controlled. He has been complaining of more pain in his low back area. PHYSICAL EXAMINATION: Blood pressure is 124/70 with a pulse of 95, temperature 97.8. He is 98% on room air. General description is an elderly male up in the bed in no distress. RESPIRATORY SYSTEM: Unlabored breathing. Clear to auscultation anteriorly. HEART: S1, S2. Regular rate and rhythm. ABDOMEN: Soft. No tenderness. EXTREMITIES: No edema of the feet. LABS: All of his cultures are negative from the right hip site. Blood cultures have been negative. DIAGNOSTIC IMPRESSION AND PLAN: Patient with right hip septic arthritis, currently waiting for transfer to [facility]. The gram stain did show some gram-positive cocci, but the cultures have been negative. Possible nutrition deficient streptococci to be the the likely etiologic agent. Will discontinue the ceftazidime, as no gram-negative has been grown. Continue vancomycin while watching his clinical course closely. Continue with supportive care. MMODL / IJN: [id number] /
[2018-08-01] MEDS: HEPARIN SODIUM,PORCINE 5,000 UNIT/ML 1 ML VIAL SQ SCH ×3 (00:01→17:09)
[2018-08-01] MEDS: oxyCODONE-APAP 7.5-325MG 1 EACH TAB PO PRN ×3 (05:02→18:20)
[2018-08-01] MEDS: LEVOTHYROXINE 75 MCG TAB PO SCH (06:47)
[2018-08-01] MEDS: VANCOMYCIN 1,750 MG in SODIUM CHLORIDE 0.9% 500 ML 500 ML IVPB SCH ×2 (06:47→18:33)
--- NOTE | 2018-08-01 08:33 | P.PN ---
Subjective Progress Note Date: 08/01/18 Principal diagnosis: Right hip septic arthritis. Status post I&D right hip with insertion antibiotic beads. Patient is a very pleasant 78-year-old male who is seen and examined at the bedside for follow-up evaluation evaluation in regards to his lumbar spine and hip. He has not had any significant change in his symptoms since being seen and examined yesterday. He states that his right hip pain is manageable but his back pain has been worse. He was scheduled for a right total hip arthroplasty 07/28/2018, to be performed by Dr. Angelo. During surgical intervention and active appearing infection of the right hip joint with tracking of infection into iliopsoas bursa was found. Total hip arthroplasty was not performed. Right hip irrigation debridement with placement of antibiotic beads, hip culture 2, and synovial biopsy was performed. Patient has remained nonweightbearing on the right lower extremity. His pain at the right hip has been controlled at rest. Patient has been discussed in detail with Dr. Angelo and Dr. Alcazar. Patient was discussed in detail with case management and nursing today. The patient was awaiting transfer to [facility] but no bed is available. The case has been discussed with Dr Angelo who recommends Dr Santana for evaluation. Dr Brian agrees to take care of the patient and will proceed with antibiotic spacer next week. Patient continues to be on IV antibiotic medication including ceftazidime and vancomycin by Dr. Ly in infectious disease. Patient continues to be seen examined by medicine. Patient has been voiding without difficulty. He is currently sitting at the bedside. He has had some difficulty with constipation. He had an enema yesterday. He was able to have one small bowel movement yesterday. He is passing gas today. Patient denies nausea, vomiting, fever, or chills. Patient states he has had significant decline in his ability to ambulate and exacerbation of right hip pain over the past month to 2 months. He states he did have an injection at his right hip in May 2018 which did not provide any significant improvement of his pain. He states he has not experienced any fever or chills and has not felt sick in any regard since the exacerbation of his symptoms. Objective - Vital Signs Vital signs: Vital Signs Temp 98.8 F 08/01/18 06:30 Pulse 85 08/01/18 06:30 Resp 20 08/01/18 06:30 BP 131/70 08/01/18 06:30 Pulse Ox 97 08/01/18 06:30 Intake & Output 07/31/18 08/01/18 08/01/18 18:59 06:59 18:59 Intake Total 900 300 Output Total 400 Balance 500 300 Intake: Oral 900 300 Output: Urine 400 Other: Voiding Method Urinal Urinal # Voids 2 3 # Bowel Movements 1 - Exam Exam of the right hip reveals that his incision is clean and dry. Dermabond glue is intact. There is no minimal drainage on the Telfa dressing. His dressing is changed today. He is able to stand with a walker maintaining nonweightbearing to the right lower extremity. He has full foot and ankle motion without difficulty or pain. Neurovascular status of lower extremity is intact. - Labs CBC & Chem 7: 07/31/18 09:26 07/31/18 09:26 Labs: Abnormal Lab Results - Last 24 Hours (Table) 07/31/18 07/31/18 Range/Units 09:26 09:26 RBC 3.65 L (4.30-5.90) m/uL Hgb 10.4 L (13.0-17.5) gm/dL Hct 34.4 L (39.0-53.0) % MCHC 30.3 L (31.0-37.0) g/dL Sodium 135 L (137-145) mmol/L Chloride 95 L (98-107) mmol/L Carbon Dioxide 31 H (22-30) mmol/L Creatinine 0.60 L (0.66-1.25) mg/dL Glucose 132 H (74-99) mg/dL Assessment and Plan (1) Septic arthritis of hip Current Visit: Yes Status: Acute Code(s): M00.9 - PYOGENIC ARTHRITIS, UNSPECIFIED SNOMED Code(s): 626320736 (2) History of atrial fibrillation Current Visit: Yes Status: Acute Code(s): Z86.79 - PERSONAL HISTORY OF OTHER DISEASES OF THE CIRCULATORY SYSTEM SNOMED Code(s): 575187276 (3) History of hypothyroidism Current Visit: Yes Status: Acute Code(s): Z86.39 - PERSONAL HISTORY OF ENDO , NUTRITIONAL AND METABOLIC DISEASE SNOMED Code(s): 054589548 (4) Inability to ambulate due to hip Current Visit: Yes Status: Acute Code(s): R26.2 - DIFFICULTY IN WALKING, NOT ELSEWHERE CLASSIFIED SNOMED Code(s): 116126688 (5) Intractable pain Current Visit: Yes Status: Acute Code(s): R52 - PAIN, UNSPECIFIED SNOMED Code(s): 45025939 (6) Lumbar degenerative disc disease Current Visit: Yes Status: Acute Code(s): M51.36 - OTHER INTERVERTEBRAL DISC DEGENERATION, LUMBAR REGION SNOMED Code(s): 56732332 Plan: The clinical findings are discussed with the patient and nursing staff. The plan is for OR on Saturday for antibiotic spacer of the right hip with Dr. Max Brian. The patient understands and agrees to plan. All of his questions are answered to best of my ability.
[2018-08-01] MEDS: METOPROLOL TARTRATE 25 MG TAB PO SCH ×2 (08:45→20:51)
[2018-08-01] MEDS: SENNOSIDES-DOCUSATE SODIUM 1 EACH TAB PO SCH (08:45)
[2018-08-01] MEDS: FUROSEMIDE 40 MG TAB PO SCH (08:45)
[2018-08-01] MEDS: DOCUSATE 100 MG CAP PO SCH ×2 (08:45→20:51)
[2018-08-01 10:12] LABS: Basophils % (A) 0 %; Eosinophils # (A) 0.1 k/uL (0-0.7); Eosinophils % (A) 2 %; HCT 32.7 % (39.0-53.0); HGB 10.2 gm/dL (13.0-17.5); Hypochromasia Slight; Lymphocytes # (A) 1.3 k/uL (1.0-4.8); Lymphocytes % (A) 19 %; MCH 28.8 pg (25.0-35.0); MCHC 31.4 g/dL (31.0-37.0); MCV 91.9 fL (80.0-100.0); Mean Platelet Volume 6.1; Monocytes # (A) 0.6 k/uL (0-1.0); Monocytes % (A) 9 %; Neutrophils # (A) 4.5 k/uL (1.3-7.7); Neutrophils % (A) 68 %; Platelet Count 421 k/uL (150-450); RBC 3.56 m/uL (4.30-5.90); RDW 13.1 % (11.5-15.5); WBC 6.6 k/uL (3.8-10.6)
[2018-08-01 10:20] LABS: ALT 33 U/L (21-72); AST 23 U/L (17-59); Alkaline Phosphatase 125 U/L (38-126); Anion Gap 8 mmol/L; Blood Urea Nitrogen 11 mg/dL (9-20); Calcium 9.2 mg/dL (8.4-10.2); Carbon Dioxide 30 mmol/L (22-30); Chloride 96 mmol/L (98-107); Glucose 114 mg/dL (74-99); Potassium 3.8 mmol/L (3.5-5.1); Sodium 134 mmol/L (137-145); Total Bilirubin 1.1 mg/dL (0.2-1.3); Total Protein 5.8 g/dL (6.3-8.2)
--- NOTE | 2018-08-01 12:08 | P.PN ---
Subjective Progress Note Date: 08/01/18 Principal diagnosis: Patient feels okay today no chest pain no shortness of breath Constitutional: No acute distress, conversant, pleasant Eyes: Anicteric sclerae, moist conjunctiva, no lid-lag PERRLA ENMT: Neck: Supple, FROM, no masses, or JVD No carotid bruits No thyromegaly Lungs: Clear to auscultation Cardiovascular: Heart regular in rate and rhythm, No murmurs, gallops, or rubs No peripheral edema Abdominal: Soft Nontender, no guarding, Skin: Normal temperature, tone, texture, turgor No induration No subcutaneous nodules No rash, lesions No ulcers Extremities: No digital cyanosis Psychiatric:Alert and oriented to person, place and time Appropriate affect Intact judgement Neuro: Generalized weakness Vital Signs - 8 hr 08/01/18 08/01/18 06:30 08:00 Temperature 98.8 F Pulse Rate [ 85 Pulse Oximetery ] Respiratory 20 20 Rate Blood Pressure 131/70 [Right Arm] O2 Sat by Pulse 97 Oximetry Septic arthritis - - s/p OR with washout, Patient scheduled to have antibiotic spacer placed next week Patient does not want to be transferred at this time to [facility] prefers interventions to be done here if possible -Elevated ESR and CRP: ESR relatively unchanged from prior to surgery -ID recommendations: await culture, vanco and ceftazidime Overall the condition of the patient is stable still no beds available at [facility] will continue current antibiotics no evidence of sepsis at this time Intractable hip pain due to above. -Pain control with percocet and morphine Appears to be comfortable at this time No distress Constipation No evidence of obstruction at this time Acute blood loss anemia -Overall stable A. fib -Aspirin stopped for additional surgical interventions if needed -Metoprolol -Monitor heart rate Hyperactive bladder -Status post removal of bladder stimulator. Had been inplace near right hip Hypothyroidism - continue with synthroid Peripheral edema - continue lasix Hyponatremia, mild - No symptoms noted Obesity with BMI 35 - At that that [facility] was arranged but the patient currently does not want to be transferred prefers interventions to be done here patient scheduled to have antibiotic spacer placed next week Objective - Vital Signs Vital signs: Vital Signs Temp 98.8 F 08/01/18 06:30 Pulse 85 08/01/18 06:30 Resp 20 02/22/19 08:00 BP 131/70 08/01/18 06:30 Pulse Ox 97 08/01/18 06:30 Intake & Output 07/31/18 08/01/18 08/01/18 18:59 06:59 18:59 Intake Total 900 300 Output Total 400 Balance 500 300 Intake: Oral 900 300 Output: Urine 400 Other: Voiding Method Urinal Urinal Urinal # Voids 2 3 # Bowel Movements 1 - Labs CBC & Chem 7: 08/01/18 09:42 08/01/18 09:42 Labs: Abnormal Lab Results - Last 24 Hours (Table) 08/01/18 08/01/18 Range/Units 09:42 09:42 RBC 3.56 L (4.30-5.90) m/uL Hgb 10.2 L (13.0-17.5) gm/dL Hct 32.7 L (39.0-53.0) % Sodium 134 L (137-145) mmol/L Chloride 96 L (98-107) mmol/L Creatinine 0.59 L (0.66-1.25) mg/dL Glucose 114 H (74-99) mg/dL Total Protein 5.8 L (6.3-8.2) g/dL Albumin 3.0 L (3.5-5.0) g/dL Microbiology - Last 24 Hours (Table) 07/28/18 14:15 Anaerobic Culture - Final Hip - Right 07/28/18 14:15 Anaerobic Culture - Final Hip - Right 07/28/18 14:15 Anaerobic Culture - Final Hip - Right
[2018-08-01] MEDS: FUROSEMIDE 20 MG TAB PO SCH (13:26)
[2018-08-01] MEDS: SODIUM CHLORIDE 0.9% 1,000 ML IV SCH (13:26)
[2018-08-01] MEDS: POLYETHYLENE GLYCOL 3350 17 GM POWD.PACK PO SCH (20:52)
[2018-08-02] MEDS: HEPARIN SODIUM,PORCINE 5,000 UNIT/ML 1 ML VIAL SQ SCH ×4 (00:40→23:50)
[2018-08-02] MEDS: oxyCODONE-APAP 7.5-325MG 1 EACH TAB PO PRN ×4 (00:44→20:04)
[2018-08-02] MEDS ORDERED: VANCOMYCIN TROUGH DUE 1 EACH MISC MISCELLANE ONE (05:00)
[2018-08-02 05:46] LABS: Basophils % (A) 1 %; Eosinophils # (A) 0.1 k/uL (0-0.7); Eosinophils % (A) 2 %; HCT 33.2 % (39.0-53.0); HGB 10.2 gm/dL (13.0-17.5); Lymphocytes # (A) 1.1 k/uL (1.0-4.8); Lymphocytes % (A) 20 %; MCH 28.7 pg (25.0-35.0); MCHC 30.8 g/dL (31.0-37.0); MCV 93.1 fL (80.0-100.0); Mean Platelet Volume 6.6; Monocytes # (A) 0.6 k/uL (0-1.0); Monocytes % (A) 11 %; Neutrophils # (A) 3.6 k/uL (1.3-7.7); Neutrophils % (A) 65 %; Platelet Count 367 k/uL (150-450); RBC 3.57 m/uL (4.30-5.90); RDW 13.6 % (11.5-15.5); WBC 5.5 k/uL (3.8-10.6)
[2018-08-02] MEDS: LEVOTHYROXINE 75 MCG TAB PO SCH (05:50)
[2018-08-02 05:56] LABS: ALT 39 U/L (21-72); AST 29 U/L (17-59); Albumin 2.7 g/dL (3.5-5.0); Alkaline Phosphatase 136 U/L (38-126); Anion Gap 5 mmol/L; Blood Urea Nitrogen 12 mg/dL (9-20); Calcium 8.8 mg/dL (8.4-10.2); Carbon Dioxide 31 mmol/L (22-30); Chloride 97 mmol/L (98-107); Glucose 99 mg/dL (74-99); Potassium 3.6 mmol/L (3.5-5.1); Sodium 133 mmol/L (137-145); Total Bilirubin 0.8 mg/dL (0.2-1.3); Total Protein 5.2 g/dL (6.3-8.2)
[2018-08-02] MEDS: VANCOMYCIN 1,750 MG in SODIUM CHLORIDE 0.9% 500 ML 500 ML IVPB SCH ×2 (06:11→17:07)
--- NOTE | 2018-08-02 06:11 | PN ---
PROGRESS NOTE DATE OF SERVICE: 08/01/2018 REASON FOR FOLLOWUP: Right hip septic arthritis. INTERVAL HISTORY: The patient is currently afebrile. Patient is breathing comfortably. The patient denies any chest pain or cough. No abdominal pain. Pain to the right hip area is currently controlled with pain medication. EXAMINATION: His blood pressure is 125/71 with a pulse of 60, temperature 98.2, he is 98% on room air. GENERAL DESCRIPTION: The patient is an elderly male up in the bed in no distress. RESPIRATORY SYSTEM: Unlabored breathing. Clear to auscultation anteriorly. HEART: S1, S2. Regular rate and rhythm. ( ) dressing. LABS: Creatinine 0.59, hemoglobin 10.8, white count 6.6, white count of 14.8. Culture so far negative. DIAGNOSTIC IMPRESSION AND PLAN: Patient with right hip septic arthritis, status post debridement. The patient is currently awaiting for repeat debridement of his hip with a plan to ( ) has been canceled. Surgery will perform ( ). Patient's vancomycin will continue for now. Once his clinical course improves, continue supportive care. MMODL / IJN: [id number] /
[2018-08-02] MEDS: DOCUSATE 100 MG CAP PO SCH ×2 (08:06→21:51)
[2018-08-02] MEDS: SENNOSIDES-DOCUSATE SODIUM 1 EACH TAB PO SCH (08:06)
[2018-08-02] MEDS: METOPROLOL TARTRATE 25 MG TAB PO SCH ×2 (08:06→21:51)
[2018-08-02] MEDS: FUROSEMIDE 40 MG TAB PO SCH (08:07)
--- NOTE | 2018-08-02 09:40 | P.PN ---
Subjective Progress Note Date: 08/02/18 Principal diagnosis: Right hip septic arthritis. Status post right hip I&D with insertion of antibiotic beads This is a pleasant 78 year-old male post right hip I&D with insertion of antibiotic beads. This is post-op day 5. The patient was evaluated while sitting on the side of the bed today. The patient denies nausea, vomiting, abdominal pain, shortness of breath, and chest pain this morning. He states his pain is controlled and states the sharp pain he was experiencing before surgery is now gone. The patient has been up to the bedside commode. He has had some difficulty with constipation. He did have a bowel movement last night. We are awaiting insertion of the antibiotic spacer by Dr. Max Brian this coming Saturday. He is currently being followed by infectious disease also and is on vancomycin. No new complaints today. Objective - Vital Signs Vital signs: Vital Signs Temp 98.3 F 08/02/18 07:00 Pulse 85 08/02/18 07:00 Resp 18 08/02/18 07:00 BP 133/76 08/02/18 07:00 Pulse Ox 98 08/02/18 07:00 Intake & Output 08/01/18 08/02/18 08/02/18 18:59 06:59 18:59 Intake Total 800 350 Balance 800 350 Intake: Oral 800 350 Other: Voiding Method Urinal Urinal Urinal # Voids 2 2 # Bowel Movements 1 - Exam The patient does not appear in acute distress. Alert and orientated x3. Dressing is clean dry and intact. Incision appears fine with no erythema or active drainage. Calf is soft and nontender. Good foot and ankle motion without difficulty. Sensation and circulatory status is intact. - Labs CBC & Chem 7: 08/02/18 05:34 08/02/18 05:34 Labs: Abnormal Lab Results - Last 24 Hours (Table) 08/01/18 08/01/18 08/02/18 Range/Units 09:42 09:42 05:34 RBC 3.56 L 3.57 L (4.30-5.90) m/uL Hgb 10.2 L 10.2 L (13.0-17.5) gm/dL Hct 32.7 L 33.2 L (39.0-53.0) % MCHC 30.8 L (31.0-37.0) g/dL Sodium 134 L (137-145) mmol/L Chloride 96 L (98-107) mmol/L Carbon Dioxide (22-30) mmol/L Creatinine 0.59 L (0.66-1.25) mg/dL Glucose 114 H (74-99) mg/dL Alkaline Phosphatase (38-126) U/L Total Protein 5.8 L (6.3-8.2) g/dL Albumin 3.0 L (3.5-5.0) g/dL 08/02/18 Range/Units 05:34 RBC (4.30-5.90) m/uL Hgb (13.0-17.5) gm/dL Hct (39.0-53.0) % MCHC (31.0-37.0) g/dL Sodium 133 L (137-145) mmol/L Chloride 97 L (98-107) mmol/L Carbon Dioxide 31 H (22-30) mmol/L Creatinine 0.56 L (0.66-1.25) mg/dL Glucose (74-99) mg/dL Alkaline Phosphatase 136 H (38-126) U/L Total Protein 5.2 L (6.3-8.2) g/dL Albumin 2.7 L (3.5-5.0) g/dL Microbiology - Last 24 Hours (Table) 07/28/18 14:15 Anaerobic Culture - Final Hip - Right 07/28/18 14:15 Anaerobic Culture - Final Hip - Right 07/28/18 14:15 Anaerobic Culture - Final Hip - Right Assessment and Plan (1) History of atrial fibrillation Current Visit: Yes Status: Acute Code(s): Z86.79 - PERSONAL HISTORY OF OTHER DISEASES OF THE CIRCULATORY SYSTEM SNOMED Code(s): 544331641 (2) History of hypothyroidism Current Visit: Yes Status: Acute Code(s): Z86.39 - PERSONAL HISTORY OF ENDO , NUTRITIONAL AND METABOLIC DISEASE SNOMED Code(s): 312052968 (3) Inability to ambulate due to hip Current Visit: Yes Status: Acute Code(s): R26.2 - DIFFICULTY IN WALKING, NOT ELSEWHERE CLASSIFIED SNOMED Code(s): 011321785 (4) Intractable pain Current Visit: Yes Status: Acute Code(s): R52 - PAIN, UNSPECIFIED SNOMED Code(s): 34384642 (5) Lumbar degenerative disc disease Current Visit: Yes Status: Acute Code(s): M51.36 - OTHER INTERVERTEBRAL DISC DEGENERATION, LUMBAR REGION SNOMED Code(s): 06017020 (6) Right hip pain Current Visit: Yes Status: Acute Code(s): M25.551 - PAIN IN RIGHT HIP SNOMED Code(s): 07963606 (7) Septic arthritis of hip Current Visit: Yes Status: Acute Code(s): M00.9 - PYOGENIC ARTHRITIS, UNSPECIFIED SNOMED Code(s): 782064808 Plan: The clinical findings were discussed with the patient and the nursing staff. The plan is for OR in Saturday for antibiotic spacer placement of the right hip with Dr. Max Brian. He will be NPO at midnight on Saturday night. The patient understands and agrees to this plan. All his questions were answered to best of my ability. We will continue to follow patient closely and make further recommendations as needed.
--- NOTE | 2018-08-02 11:34 | P.PN ---
Subjective Progress Note Date: 08/02/18 Principal diagnosis: Patient is a 78-year-old male past medical history of A. fib not on chronic anticoagulation, overactive bladder, and hypothyroidism who presented to the ER with complaints of intractable right hip pain. In the ER he underwent a CT which showed severe advanced degenerative joint disease in the right hip. Initial laboratory analysis showed slight hyponatremia with a sodium of 134 and slight anemia with hemoglobin of 12.2 but was otherwise unremarkable. Orthopedic surgery recommended admission to medicine for pain management. Patient was subsequently admitted as observation. He was noted to have an elevated ESR and CRP. There was concern that he could have a right hip infection and ID was consulted. MRI showed advanced hip joint destruction cannot rule out metastasis or infection but no definitive abscess. Plans were made for operation on 07/28 no antibiotics were administered as he did not have fever or leukocytosis. He has been struggling with constipation and was given multiple stool softners. He went to OR on 07/28 and was found to have septic arthritis, culture were taken and antibiotic beads placed per ortho verbal sign out. ID was contacted and he was placed on vanco and fortaz. His aerobic culturees came back with no growth, gram stain showed rare GPC. Initially the plan was to transfer the patient to [facility] to have antibiotic spacer inserted, however Dr. Brian has scheduled the patient for insertion on Saturday Patient has no significant complaints today, doing well with his appetite, denies any fevers chills or night sweats. Report is pending as moderate but controlled with Percocet. Objective - Vital Signs Vital signs: Vital Signs Temp 98.3 F 08/02/18 07:00 Pulse 85 08/02/18 07:00 Resp 18 08/02/18 07:00 BP 133/76 08/02/18 07:00 Pulse Ox 98 08/02/18 07:00 Intake & Output 08/01/18 08/02/18 08/02/18 18:59 06:59 18:59 Intake Total 800 350 Output Total 600 Balance 800 350 -600 Intake: Oral 800 350 Output: Urine 600 Other: Voiding Method Urinal Urinal Urinal # Voids 2 2 # Bowel Movements 1 - Exam Constitutional: No acute distress, conversant, pleasant Eyes: Anicteric sclerae, moist conjunctiva, no lid-lag, PERRLA ENMT: NC/AT,Oropharynx clear, no erythema, exudates Neck:Supple, FROM, no masses, or JVD, No carotid bruits; No thyromegaly Lungs: Clear to auscultation, Clear to percussion, Normal respiratory effort, no accessory muscle use Cardiovascular: Heart regular in rate and rhythm, No murmurs, gallops, or rubs no peripheral edema Abdominal: Soft Nontender, nom distended, no guarding, no rebound or rigidity, Normoactive bowel sounds No hepatomegaly, No splenomegaly, No palpable mass No abdominal wall hernia noted Skin: Normal temperature, tone, texture, turgor, No induration No subcutaneous nodules, No rash, lesions, No ulcers Extremities: Incision on right hip cleared dry and intact. Foot and ankle motion no erythema or active drainage around incision, neurovascularly intact Psychiatric: Alert and oriented to person, place and time, Appropriate affect Intact judgement - Labs CBC & Chem 7: 08/02/18 05:34 08/02/18 05:34 Labs: Abnormal Lab Results - Last 24 Hours (Table) 08/02/18 08/02/18 Range/Units 05:34 05:34 RBC 3.57 L (4.30-5.90) m/uL Hgb 10.2 L (13.0-17.5) gm/dL Hct 33.2 L (39.0-53.0) % MCHC 30.8 L (31.0-37.0) g/dL Sodium 133 L (137-145) mmol/L Chloride 97 L (98-107) mmol/L Carbon Dioxide 31 H (22-30) mmol/L Creatinine 0.56 L (0.66-1.25) mg/dL Alkaline Phosphatase 136 H (38-126) U/L Total Protein 5.2 L (6.3-8.2) g/dL Albumin 2.7 L (3.5-5.0) g/dL Microbiology - Last 24 Hours (Table) 07/28/18 14:15 Anaerobic Culture - Final Hip - Right 07/28/18 14:15 Anaerobic Culture - Final Hip - Right 07/28/18 14:15 Anaerobic Culture - Final Hip - Right Assessment and Plan (1) Septic arthritis of hip Narrative/Plan: * - s/p OR with washout, * Patient scheduled to have antibiotic spacer by Dr. Brian on Saturday * -Elevated ESR and CRP: ESR relatively unchanged from prior to surgery * Appreciate-ID recommendations: await culture, vancomycin Current Visit: Yes Status: Acute Code(s): M00.9 - PYOGENIC ARTHRITIS, UNSPECIFIED SNOMED Code(s): 962174440 (2) Acute blood loss as cause of postoperative anemia Narrative/Plan: * Hemoglobin maintaining stable at 10.2 * Continue to monitor Current Visit: Yes Status: Acute Code(s): D62 - ACUTE POSTHEMORRHAGIC ANEMIA SNOMED Code(s): [id number] (3) History of atrial fibrillation Narrative/Plan: * Continue with metoprolol * Patient previously on aspirin * Continue heparin anticoagulation Current Visit: Yes Status: Chronic Code(s): Z86.79 - PERSONAL HISTORY OF OTHER DISEASES OF THE CIRCULATORY SYSTEM SNOMED Code(s): 245953746 (4) History of hypothyroidism Narrative/Plan: * Continue with Synthroid Current Visit: Yes Status: Chronic Code(s): Z86.39 - PERSONAL HISTORY OF ENDO, NUTRITIONAL AND METABOLIC DISEASE SNOMED Code(s): 237918201 (5) Inability to ambulate due to hip Narrative/Plan: * With ongoing right hip pain * -Pain control with percocet and morphine Appears to be comfortable at this time No distress Current Visit: Yes Status: Acute Code(s): R26.2 - DIFFICULTY IN WALKING, NOT ELSEWHERE CLASSIFIED SNOMED Code(s): 820745119 Plan: Disposition * Anticipated discharge will reevaluate after antibiotic spacers placed on Saturday
[2018-08-02] MEDS: FUROSEMIDE 20 MG TAB PO SCH (12:31)
[2018-08-02] MEDS: SODIUM CHLORIDE 0.9% 1,000 ML IV SCH (12:31)
[2018-08-02] MEDS: POLYETHYLENE GLYCOL 3350 17 GM POWD.PACK PO SCH ×2 (21:51→21:53)
--- NOTE | 2018-08-02 22:35 | PN ---
PROGRESS NOTE DATE OF SERVICE: 08/02/2018 REASON FOR FOLLOW UP: Septic arthritis. INTERVAL HISTORY: The patient is currently afebrile, has been breathing comfortably. Denies any chest pain or cough. No worsening right hip pain. No abdominal pain, no diarrhea. PHYSICAL EXAMINATION: Blood pressure 151/77, pulse of 82, temperature 98, he is 93% on room air. GENERAL DESCRIPTION: An elderly male up in the bed in no distress. RESPIRATORY SYSTEM: Unlabored breathing, clear to auscultation anteriorly. HEART: S1, S2. Regular rate and rhythm. ABDOMEN: Soft. LABS: Hemoglobin is 10.1, white count 5.2. BUN of 12.5, creatinine 1.61. Culture so far negative. DIAGNOSTIC IMPRESSION AND PLAN: Patient with right hip septic arthritis status post debridement. The patient is scheduled for further debridement and antibiotics on Saturday. Continue with the vancomycin at this point. We will monitor the clinical course closely. Continue supportive care. MMGIUSEPPEL / JEFFRYN: [id number] /
[2018-08-03] MEDS: oxyCODONE-APAP 7.5-325MG 1 EACH TAB PO PRN ×4 (02:19→21:06)
[2018-08-03] MEDS: VANCOMYCIN 1,750 MG in SODIUM CHLORIDE 0.9% 500 ML 500 ML IVPB SCH ×2 (05:57→17:10)
[2018-08-03] MEDS: LEVOTHYROXINE 75 MCG TAB PO SCH (05:58)
[2018-08-03 07:55] LABS: Basophils % (A) 1 %; Eosinophils # (A) 0.1 k/uL (0-0.7); Eosinophils % (A) 2 %; HCT 32.1 % (39.0-53.0); HGB 10.1 gm/dL (13.0-17.5); Hypochromasia Slight; Lymphocytes % (A) 18 %; MCH 28.6 pg (25.0-35.0); MCHC 31.4 g/dL (31.0-37.0); MCV 91.3 fL (80.0-100.0); Mean Platelet Volume 6.1; Monocytes # (A) 0.5 k/uL (0-1.0); Monocytes % (A) 9 %; Neutrophils # (A) 3.8 k/uL (1.3-7.7); Neutrophils % (A) 68 %; Platelet Count 413 k/uL (150-450); RBC 3.52 m/uL (4.30-5.90); RDW 13.3 % (11.5-15.5); WBC 5.5 k/uL (3.8-10.6)
[2018-08-03 08:15] LABS: ALT 37 U/L (21-72); AST 28 U/L (17-59); Albumin 2.8 g/dL (3.5-5.0); Alkaline Phosphatase 125 U/L (38-126); Anion Gap 6 mmol/L; Blood Urea Nitrogen 11 mg/dL (9-20); Calcium 8.9 mg/dL (8.4-10.2); Carbon Dioxide 30 mmol/L (22-30); Chloride 99 mmol/L (98-107); Glucose 101 mg/dL (74-99); Potassium 3.6 mmol/L (3.5-5.1); Sodium 135 mmol/L (137-145); Total Bilirubin 0.8 mg/dL (0.2-1.3); Total Protein 5.3 g/dL (6.3-8.2)
[2018-08-03] MEDS: SENNOSIDES-DOCUSATE SODIUM 1 EACH TAB PO SCH (08:22)
[2018-08-03] MEDS: DOCUSATE 100 MG CAP PO SCH ×2 (08:22→21:02)
[2018-08-03] MEDS: METOPROLOL TARTRATE 25 MG TAB PO SCH ×2 (08:31→21:06)
[2018-08-03] MEDS: FUROSEMIDE 40 MG TAB PO SCH (08:31)
[2018-08-03] MEDS: HEPARIN SODIUM,PORCINE 5,000 UNIT/ML 1 ML VIAL SQ SCH ×3 (08:31→23:36)
--- NOTE | 2018-08-03 10:16 | P.PN ---
Subjective Progress Note Date: 08/03/18 Principal diagnosis: Right hip septic arthritis. Status post right hip I&D with insertion of antibiotic beads This is a pleasant 78 year-old male post right hip I&D with insertion of antibiotic beads. This is post-op day 6. The patient was evaluated while sitting in a chair today. The patient denies nausea, vomiting, abdominal pain, shortness of breath, and chest pain this morning. He states his pain is controlled and states the sharp pain he was experiencing before surgery is now gone. The patient has been up to the bedside commode. We are awaiting insertion of the antibiotic spacer by Dr. Max Brian this coming Saturday. He is currently being followed by infectious disease also and is on vancomycin. No new complaints today. Objective - Vital Signs Vital signs: Vital Signs Temp 98.5 F 08/03/18 07:00 Pulse 86 08/03/18 07:00 Resp 20 08/03/18 07:00 BP 137/69 08/03/18 07:00 Pulse Ox 98 08/03/18 07:00 Intake & Output 08/02/18 08/03/18 08/03/18 18:59 06:59 18:59 Intake Total 320 Output Total 600 Balance -600 320 Intake: Intake, IV Titration 320 Amount Sodium Chloride 0.9% 1, 320 000 ml @ 20 mls/hr IV . Q24H [facility] Rx#:[id number] Output: Urine 600 Other: Voiding Method Urinal Urinal # Voids 3 - Exam The patient does not appear in acute distress. Alert and orientated x3. Dressing is clean dry and intact. Incision appears fine with no erythema or active drainage. Calf is soft and nontender. Good foot and ankle motion without difficulty. Sensation and circulatory status is intact. - Labs CBC & Chem 7: 08/03/18 07:37 08/03/18 07:37 Labs: Abnormal Lab Results - Last 24 Hours (Table) 08/03/18 08/03/18 Range/Units 07:37 07:37 RBC 3.52 L (4.30-5.90) m/uL Hgb 10.1 L (13.0-17.5) gm/dL Hct 32.1 L (39.0-53.0) % Sodium 135 L (137-145) mmol/L Creatinine 0.56 L (0.66-1.25) mg/dL Glucose 101 H (74-99) mg/dL Total Protein 5.3 L (6.3-8.2) g/dL Albumin 2.8 L (3.5-5.0) g/dL Assessment and Plan (1) History of atrial fibrillation Current Visit: Yes Status: Chronic Code(s): Z86.79 - PERSONAL HISTORY OF OTHER DISEASES OF THE CIRCULATORY SYSTEM SNOMED Code(s): 823725331 (2) History of hypothyroidism Current Visit: Yes Status: Chronic Code(s): Z86.39 - PERSONAL HISTORY OF ENDO, NUTRITIONAL AND METABOLIC DISEASE SNOMED Code(s): 815400068 (3) Inability to ambulate due to hip Current Visit: Yes Status: Acute Code(s): R26.2 - DIFFICULTY IN WALKING, NOT ELSEWHERE CLASSIFIED SNOMED Code(s): 801761765 (4) Intractable pain Current Visit: Yes Status: Acute Code(s): R52 - PAIN, UNSPECIFIED SNOMED Code(s): 49203581 (5) Lumbar degenerative disc disease Current Visit: Yes Status: Acute Code(s): M51.36 - OTHER INTERVERTEBRAL DISC DEGENERATION, LUMBAR REGION SNOMED Code(s): 08144524 (6) Right hip pain Current Visit: Yes Status: Acute Code(s): M25.551 - PAIN IN RIGHT HIP SNOMED Code(s): 36479379 (7) Septic arthritis of hip Current Visit: Yes Status: Acute Code(s): M00.9 - PYOGENIC ARTHRITIS, UNSPECIFIED SNOMED Code(s): 772903331 Plan: The clinical findings were discussed with the patient and the nursing staff. The plan is for OR in Saturday for antibiotic spacer placement of the right hip with Dr. Max Brain. He will be NPO at midnight on Saturday night. The patient understands and agrees to this plan. All his questions were answered to best of my ability. We will continue to follow patient closely and make further recommendations as needed.
[2018-08-03] MEDS: FUROSEMIDE 20 MG TAB PO SCH (14:04)
[2018-08-03] MEDS: SODIUM CHLORIDE 0.9% 1,000 ML IV SCH (14:11)
[2018-08-03] MEDS: POLYETHYLENE GLYCOL 3350 17 GM POWD.PACK PO SCH (21:02)
[2018-08-04] MEDS: oxyCODONE-APAP 7.5-325MG 1 EACH TAB PO PRN ×4 (03:24→22:08)
[2018-08-04] MEDS: LEVOTHYROXINE 75 MCG TAB PO SCH (05:40)
[2018-08-04] MEDS: VANCOMYCIN 1,750 MG in SODIUM CHLORIDE 0.9% 500 ML 500 ML IVPB SCH ×2 (05:40→17:56)
--- NOTE | 2018-08-04 06:19 | PN ---
PROGRESS NOTE DATE OF SERVICE: 08/03/2018 REASON FOR FOLLOWUP: Right hip septic arthritis. INTERVAL HISTORY: The patient is currently afebrile. The patient is breathing comfortably. The patient's pain to the right knee is currently controlled. No chest pain, shortness of breath or cough. No abdominal pain or any diarrhea. PHYSICAL EXAMINATION: On examination, blood pressure 108/57 with pulse of 92, temperature 98.6. He is 99% on room air. General description is an elderly male up in the chair in no distress. Right hip is currently dressed up, no obvious drainage on the dressing. LABS: Hemoglobin is 10.1, white count 5.5 with a BUN of 11, creatinine 0.56. DIAGNOSTIC IMPRESSION AND PLAN: Patient admitted to the hospital with right hip pain with concern for possible right hip septic arthritis at the time of surgery. for a surgical debridement and placement of antibiotic spacer on Saturday. Currently cultures closely. Continue supportive care. MMODL / IJN: [id number] /
[2018-08-04] MEDS: SENNOSIDES-DOCUSATE SODIUM 1 EACH TAB PO SCH (08:44)
[2018-08-04] MEDS: DOCUSATE 100 MG CAP PO SCH ×2 (08:44→22:09)
[2018-08-04] MEDS: HEPARIN SODIUM,PORCINE 5,000 UNIT/ML 1 ML VIAL SQ SCH ×2 (08:54→16:46)
[2018-08-04] MEDS: FUROSEMIDE 40 MG TAB PO SCH (08:55)
[2018-08-04] MEDS: METOPROLOL TARTRATE 25 MG TAB PO SCH ×2 (08:55→22:08)
[2018-08-04 10:05] LABS: Basophils % (A) 0 %; Eosinophils # (A) 0.1 k/uL (0-0.7); Eosinophils % (A) 2 %; HCT 34.3 % (39.0-53.0); HGB 10.9 gm/dL (13.0-17.5); Hypochromasia Slight; Lymphocytes % (A) 15 %; MCH 29.4 pg (25.0-35.0); MCHC 31.8 g/dL (31.0-37.0); MCV 92.6 fL (80.0-100.0); Mean Platelet Volume 6.1; Monocytes # (A) 0.5 k/uL (0-1.0); Monocytes % (A) 7 %; Neutrophils # (A) 5.1 k/uL (1.3-7.7); Neutrophils % (A) 74 %; Platelet Count 398 k/uL (150-450); RBC 3.71 m/uL (4.30-5.90); RDW 13.6 % (11.5-15.5); WBC 6.9 k/uL (3.8-10.6)
[2018-08-04 10:09] LABS: ALT 39 U/L (21-72); AST 24 U/L (17-59); Albumin 2.9 g/dL (3.5-5.0); Alkaline Phosphatase 117 U/L (38-126); Anion Gap 7 mmol/L; Blood Urea Nitrogen 10 mg/dL (9-20); Calcium 8.9 mg/dL (8.4-10.2); Carbon Dioxide 31 mmol/L (22-30); Chloride 98 mmol/L (98-107); Glucose 108 mg/dL (74-99); Potassium 3.5 mmol/L (3.5-5.1); Sodium 136 mmol/L (137-145); Total Bilirubin 0.6 mg/dL (0.2-1.3); Total Protein 5.4 g/dL (6.3-8.2)
--- NOTE | 2018-08-04 12:27 | P.PN ---
Subjective Progress Note Date: 08/04/18 Principal diagnosis: Patient is a 78-year-old male past medical history of A. fib not on chronic anticoagulation, overactive bladder, and hypothyroidism who presented to the ER with complaints of intractable right hip pain. In the ER he underwent a CT which showed severe advanced degenerative joint disease in the right hip. Initial laboratory analysis showed slight hyponatremia with a sodium of 134 and slight anemia with hemoglobin of 12.2 but was otherwise unremarkable. Orthopedic surgery recommended admission to medicine for pain management. Patient was subsequently admitted as observation. He was noted to have an elevated ESR and CRP. There was concern that he could have a right hip infection and ID was consulted. MRI showed advanced hip joint destruction cannot rule out metastasis or infection but no definitive abscess. Plans were made for operation on 07/28 no antibiotics were administered as he did not have fever or leukocytosis. He has been struggling with constipation and was given multiple stool softners. He went to OR on 07/28 and was found to have septic arthritis, culture were taken and antibiotic beads placed per ortho verbal sign out. ID was contacted and he was placed on vanco and fortaz. His aerobic culturees came back with no growth, gram stain showed rare GPC. Initially the plan was to transfer the patient to [facility] to have antibiotic spacer inserted, however Dr. Brian has scheduled the patient for insertion on Saturday Patient has no significant complaints today, doing well with his appetite, denies any fevers chills or night sweats. POd#6 status post insertion of antibiotic beads. Scheduled for an antibiotic spacer by Dr. Brian tomorrow Objective - Vital Signs Vital signs: Vital Signs Temp 98.8 F 08/04/18 07:39 Pulse 85 08/04/18 07:39 Resp 16 08/04/18 07:39 BP 129/71 08/04/18 07:39 Pulse Ox 98 08/04/18 07:39 Intake & Output 08/03/18 08/04/18 08/04/18 18:59 06:59 18:59 Intake Total 200 Output Total 500 800 Balance -300 -800 Intake: Oral 200 Output: Urine 500 800 Other: # Bowel Movements 1 - Exam Constitutional: No acute distress, conversant, pleasant Eyes: Anicteric sclerae, moist conjunctiva, no lid-lag, PERRLA ENMT: NC/AT,Oropharynx clear, no erythema, exudates Neck:Supple, FROM, no masses, or JVD, No carotid bruits; No thyromegaly Lungs: Clear to auscultation, Clear to percussion, Normal respiratory effort, no accessory muscle use Cardiovascular: Heart regular in rate and rhythm, No murmurs, gallops, or rubs no peripheral edema Abdominal: Soft Nontender, nom distended, no guarding, no rebound or rigidity, Normoactive bowel sounds No hepatomegaly, No splenomegaly, No palpable mass No abdominal wall hernia noted Skin: Normal temperature, tone, texture, turgor, No induration No subcutaneous nodules, No rash, lesions, No ulcers Extremities: Incision on right hip cleared dry and intact. Foot and ankle motion no erythema or active drainage around incision, neurovascularly intact Psychiatric: Alert and oriented to person, place and time, Appropriate affect Intact judgement - Labs CBC & Chem 7: 08/04/18 09:29 08/04/18 09:29 Labs: Abnormal Lab Results - Last 24 Hours (Table) 08/04/18 08/04/18 Range/Units 09:29 09:29 RBC 3.71 L (4.30-5.90) m/uL Hgb 10.9 L (13.0-17.5) gm/dL Hct 34.3 L (39.0-53.0) % Sodium 136 L (137-145) mmol/L Carbon Dioxide 31 H (22-30) mmol/L Creatinine 0.58 L (0.66-1.25) mg/dL Glucose 108 H (74-99) mg/dL Total Protein 5.4 L (6.3-8.2) g/dL Albumin 2.9 L (3.5-5.0) g/dL Assessment and Plan (1) Septic arthritis of hip Narrative/Plan: * - s/p OR with washout, * Patient scheduled to have antibiotic spacer by Dr. Brian on Saturday * -Elevated ESR and CRP: ESR relatively unchanged from prior to surgery * Appreciate-ID recommendations: await culture, vancomycin Current Visit: Yes Status: Acute Code(s): M00.9 - PYOGENIC ARTHRITIS, UNSPECIFIED SNOMED Code(s): 230453130 (2) Inability to ambulate due to hip Narrative/Plan: * With ongoing right hip pain * -Pain control with percocet and morphine Appears to be comfortable at this time No distress Current Visit: Yes Status: Acute Code(s): R26.2 - DIFFICULTY IN WALKING, NOT ELSEWHERE CLASSIFIED SNOMED Code(s): 143971090 (3) Acute blood loss as cause of postoperative anemia Narrative/Plan: * Hemoglobin maintaining stable at 10.2 * Continue to monitor Current Visit: Yes Status: Resolved Code(s): D62 - ACUTE POSTHEMORRHAGIC ANEMIA SNOMED Code(s): 55342545908575034 (4) History of hypothyroidism Narrative/Plan: * Continue with Synthroid Current Visit: Yes Status: Chronic Code(s): Z86.39 - PERSONAL HISTORY OF ENDO, NUTRITIONAL AND METABOLIC DISEASE SNOMED Code(s): 183109568 (5) History of atrial fibrillation Narrative/Plan: * Continue with metoprolol * Patient previously on aspirin * Continue heparin anticoagulation Current Visit: Yes Status: Chronic Code(s): Z86.79 - PERSONAL HISTORY OF OTHER DISEASES OF THE CIRCULATORY SYSTEM SNOMED Code(s): 334180238 Plan: * Patient will be made nothing by mouth tonight for plans for antibiotic spacer placement in the OR tomorrow by Dr. Brian
--- NOTE | 2018-08-04 13:51 | P.PN ---
Subjective Progress Note Date: 08/04/18 This is a 78-year-old male who is status post right hip irrigation and debridement with placement of antibiotic beads on 07/28/2018. Patient is seen and evaluated at bedside with Dr. Max Brian. Patient states that his pain is well-controlled today and he denies any new complaints. Patient denies any fever/chills, abdominal pain, shortness of breath, chest pain, numbness, weakness or tingling. Objective - Vital Signs Vital signs: Vital Signs Temp 98.8 F 08/04/18 07:39 Pulse 85 08/04/18 07:39 Resp 16 08/04/18 07:39 BP 129/71 08/04/18 07:39 Pulse Ox 98 08/04/18 07:39 Intake & Output 08/03/18 08/04/18 08/04/18 18:59 06:59 18:59 Intake Total 200 Output Total 500 800 Balance -300 -800 Intake: Oral 200 Output: Urine 500 800 Other: # Bowel Movements 1 - Exam On exam patient is sitting up comfortably in a chair. Patient has limited range of motion of the right hip due to pain. Calf is soft and nontender to palpation. Sensation is intact. Patient has full range of motion of the right foot and ankle. Neurovascular status and circulatory status are intact. - Labs CBC & Chem 7: 08/04/18 09:29 08/04/18 09:29 Labs: Abnormal Lab Results - Last 24 Hours (Table) 08/04/18 08/04/18 Range/Units 09:29 09:29 RBC 3.71 L (4.30-5.90) m/uL Hgb 10.9 L (13.0-17.5) gm/dL Hct 34.3 L (39.0-53.0) % Sodium 136 L (137-145) mmol/L Carbon Dioxide 31 H (22-30) mmol/L Creatinine 0.58 L (0.66-1.25) mg/dL Glucose 108 H (74-99) mg/dL Total Protein 5.4 L (6.3-8.2) g/dL Albumin 2.9 L (3.5-5.0) g/dL Assessment and Plan (1) Inability to ambulate due to hip Current Visit: Yes Status: Acute Code(s): R26.2 - DIFFICULTY IN WALKING, NOT ELSEWHERE CLASSIFIED SNOMED Code(s): 553025634 (2) Intractable pain Current Visit: Yes Status: Acute Code(s): R52 - PAIN, UNSPECIFIED SNOMED Code(s): 80920360 (3) Osteoarthritis of right hip Current Visit: Yes Status: Acute Code(s): M16.11 - UNILATERAL PRIMARY OSTEOARTHRITIS, RIGHT HIP SNOMED Code(s): 954409517444221 (4) Right hip pain Current Visit: Yes Status: Acute Code(s): M25.551 - PAIN IN RIGHT HIP SNOMED Code(s): 07412402 Plan: 1. Walker as needed for ambulation. Protected weight-bearing. New x-rays pending. 2. Continue pain control. 3. Appreciate input from infectious disease and internal medicine. 4. NPO after midnight. 5. Cultures show rare gram positive cocci. 6. Placement of antibiotic spacer, right hip is scheduled for 08/05/[address] Max Brian. All patient questions are answered.
[2018-08-04] MEDS: FUROSEMIDE 20 MG TAB PO SCH (14:52)
[2018-08-04] MEDS: SODIUM CHLORIDE 0.9% 1,000 ML IV SCH (15:39)
--- NOTE | 2018-08-04 15:41 | XR ---
EXAMINATION TYPE: XR Hip Limited RT DATE OF EXAM: 08/04/2018 COMPARISON: None HISTORY: Pain TECHNIQUE: AP hip FINDINGS: There is erosion of the superior acetabulum. There is deformity of the femoral head. Multip le radiopaque densities overlie the right hip region. IMPRESSION: 1. No acute fractures right hip. 2. Advanced degenerative change with destruction of the acetabular roof and deformity of the femoral head.
--- NOTE | 2018-08-04 15:44 | XR ---
EXAMINATION TYPE: XR pelvis AP view DATE OF EXAM: 08/04/2018 COMPARISON: None HISTORY: Pain TECHNIQUE: AP pelvis FINDINGS: There is moderate degenerative change at the left hip. Advanced degenerative change with borrero perior acetabular erosion and femoral head erosion is evident. Brachii therapy seeds are present. Multiple radiopaque densities are round the right hip region. Normal bowel gas is present. No acute fractures are evident. IMPRESSION: 1. Advanced degenerative change right hip. 2. Moderate degenerative change left hip
--- NOTE | 2018-08-04 17:19 | PN ---
PROGRESS NOTE DATE OF SERVICE: 08/04/2018. REASON FOR FOLLOW UP: Right hip septic arthritis. INTERVAL HISTORY: The patient is currently afebrile. The patient denies having any chest pain. No shortness of breath. No cough. No abdominal pain or any diarrhea. PHYSICAL EXAMINATION: Blood pressure is 125/65 with a pulse of 75, temperature 98.5. He is 98% on room air. General description is an elderly male up in the chair in no distress. Respiratory system: Unlabored breathing. Clear to auscultation anteriorly. Heart S1, S2. Regular rate and rhythm. Abdomen soft. No tenderness. Right knee is currently dressed up. No obvious drainage on the dressing. LABS: Hemoglobin is 10.1, white count 6.9 with a BUN of 10, creatinine 0.58. DIAGNOSTIC IMPRESSION AND PLAN: Patient with right hip septic arthritis on the basis of the clinical findings at time of surgery. Culture has been negative so far. The question of possible nutrition Streptococci. Currently on vancomycin. Await surgery tomorrow at which time repeat culture should be done and continue with supportive care. We will monitor Vanco trough closely. Continue supportive care. MMODL / IJN: [id number] /
[2018-08-04] MEDS: POLYETHYLENE GLYCOL 3350 17 GM POWD.PACK PO SCH (22:10)
[2018-08-05] MEDS: HEPARIN SODIUM,PORCINE 5,000 UNIT/ML 1 ML VIAL SQ SCH (00:25)
[2018-08-05] MEDS: LEVOTHYROXINE 75 MCG TAB PO SCH (05:21)
[2018-08-05] MEDS ORDERED: ROPIVACAINE 246.25 MG, EPINEPHrine 0.5 MG, KETOROLAC 30 MG, cloNIDine HCL/PF 80 MCG, WA... MISCELLANE ONE ×5 (05:59)
[2018-08-05] MEDS: VANCOMYCIN 1,750 MG in SODIUM CHLORIDE 0.9% 500 ML 500 ML IVPB SCH ×2 (06:14→17:45)
[2018-08-05] MEDS: SENNOSIDES-DOCUSATE SODIUM 1 EACH TAB PO SCH (08:12)
[2018-08-05] MEDS: FUROSEMIDE 40 MG TAB PO SCH (08:12)
[2018-08-05] MEDS: METOPROLOL TARTRATE 25 MG TAB PO SCH ×2 (08:12→21:40)
[2018-08-05] MEDS: DOCUSATE 100 MG CAP PO SCH ×2 (08:12→21:38)
[2018-08-05] MEDS: oxyCODONE-APAP 7.5-325MG 1 EACH TAB PO PRN ×2 (08:15→17:44)
[2018-08-05 10:02] LABS: Basophils # (A) 0.1 k/uL (0-0.2); Basophils % (A) 1 %; Eosinophils # (A) 0.1 k/uL (0-0.7); Eosinophils % (A) 1 %; HCT 33.6 % (39.0-53.0); HGB 10.4 gm/dL (13.0-17.5); Lymphocytes # (A) 0.9 k/uL (1.0-4.8); Lymphocytes % (A) 13 %; MCH 28.2 pg (25.0-35.0); MCHC 30.9 g/dL (31.0-37.0); Mean Platelet Volume 6.5; Monocytes # (A) 0.5 k/uL (0-1.0); Monocytes % (A) 7 %; Neutrophils # (A) 5.5 k/uL (1.3-7.7); Neutrophils % (A) 77 %; Platelet Count 365 k/uL (150-450); RBC 3.69 m/uL (4.30-5.90); RDW 13.9 % (11.5-15.5); WBC 7.2 k/uL (3.8-10.6)
[2018-08-05 10:11] LABS: ALT 37 U/L (21-72); AST 21 U/L (17-59); Albumin 2.7 g/dL (3.5-5.0); Alkaline Phosphatase 128 U/L (38-126); Anion Gap 6 mmol/L; Blood Urea Nitrogen 10 mg/dL (9-20); Calcium 8.5 mg/dL (8.4-10.2); Carbon Dioxide 30 mmol/L (22-30); Chloride 99 mmol/L (98-107); Glucose 103 mg/dL (74-99); Potassium 3.4 mmol/L (3.5-5.1); Sodium 135 mmol/L (137-145); Total Bilirubin 0.6 mg/dL (0.2-1.3); Total Protein 5.1 g/dL (6.3-8.2)
[2018-08-05] MEDS ORDERED: IV FLUID CONTINUATION 1,000 ML IV ONE (14:04)
[2018-08-05] MEDS ORDERED: ONDANSETRON 4 MG/2 ML VIAL IVP ONE (14:15)
[2018-08-05] MEDS ORDERED: fentaNYL (PF) 50 MCG/ML 2 ML AMP ONE (14:32)
[2018-08-05] MEDS ORDERED: PROPOFOL 10 MG/ML 20 ML VIAL IV ONE (14:32)
[2018-08-05] MEDS ORDERED: MIDAZOLAM 2 MG/2 ML VIAL ONE (14:32)
[2018-08-05] MEDS ORDERED: ceFAZolin 3,000 MG in SODIUM CHLORIDE 0.9% IRRIGATIO 3,000 ML IRRIGATION ONE (15:24)
[2018-08-05] MEDS ORDERED: LACTATED RINGERS 1,000 ML IV ONE (15:32)
--- NOTE | 2018-08-05 16:37 | P.OP ---
Date of Procedure: 08/05/18 Preoperative Diagnosis: Septic arthritis right hip Postoperative Diagnosis: Septic arthritis right hip Procedure(s) Performed: Stage I antibiotic spacer placement right hip for septic arthritis of the right hip Implants: Remedy antibiotic Spacer size small Remedy modular head antibiotic spacer size small (46 mm) Antibiotic Simplex P Sanders cement with tobramycin Anesthesia: spinal Surgeon: Max Brian Machine Operator Farmworker #1: Merry Jonas Estimated Blood Loss (ml): 50 Pathology: other (Cultures 2) Condition: stable Disposition: PACU Indications for Procedure: This is a 78-year-old gentleman that was seen by my partner Dr. Angelo. He presented to the hospital with rapidly progressive arthritis of his right hip and was taken to the operating room for a total hip arthroplasty by Dr. Angelo. Upon entry into the hip capsule, purulent material was noted and the hip was then irrigated and debrided with placement of antibiotic beads. Due to the significant arthritis in the hip and the infection, a stage I antibiotic spacer placement for his right hip is indicated. I have discussed this at length with the patient he is agreeable to this treatment plan informed consent was obtained. Patient was also given the option of being transferred to a tertiary care center such as [facility], the patient wishes to stay here and have definitive treatment and Elliott. Operative Findings: The operative findings are consistent with septic arthritis of the right hip Description of Procedure: Patient was seen and evaluated in the preoperative area, consent was reviewed, and the surgical site was marked with a skin marker. A spinal anesthetic was administered by the anesthesia department. The patient was then placed on the Model table with the bony prominences well-padded. The hip area was then prepped and draped in usual sterile fashion. A universal timeout was then performed, which confirmed the patient's name, surgical site, ALLERGIES, and procedure being performed. Next the incision site was located at 1 cm distal and 1 cm lateral to the anterior superior iliac spine. The skin and subcutaneous tissues were sharply incised. Incision was carefully dissected down to the fascia overlying the tensor fascia valente muscle. This fascia was then incised in line with the incision. Next, using blunt finger dissection, the tensor fascia valente muscle was dissected off its investing fascia. The muscle was then carefully retracted laterally with a cobra retractor over the lateral neck of the femur. Next, the circumflex vessels were identified and cauterized using the AquaMantis device. The anterior hip capsule was then exposed. The capsule was then opened and an inverted T fashion. There is a large amount of clear fluid which was cultured 2. Cobra retractors were then placed intracapsularly. The proximal femur was then visualized. The femoral neck was then osteotomized appropriate level above the lesser trochanter. Small amount of traction was placed with the Model table. A small wedge of bone was then removed from the remaining femoral head. Next, using a corkscrew femoral head was easily removed from the acetabulum. On gross visual inspection, the femoral head had complete loss of articular cartilage in multiple periarticular osteophytes. Attention was then turned to the acetabulum. the acetabulum was exposed and any remaining labrum was excised. Any suspicious tissue was then debrided. Attention was then directed to the femur. With the aid of the Model table, the femur was externally rotated to approximately 130, extended, and abducted under the opposite leg. A side hook was then placed under the proximal femur, and the side hook elevator was used to elevate the proximal femur. Retractors were then placed. A capsular release was performed, as well as a release of the conjoined tendon, which afforded excellent visualization of the proximal femur. Next, a box osteotome was used to lateralize the proximal femur. A produce field merchandiser was then used to locate the femoral canal. Sequential broaching was then performed with appropriate size which afforded excellent fixation in the proximal femur. A trial was then placed with appropriate head and neck, and the hip was gently reduced with the aid of the Model table. Fluoroscopy was then used to check position of the components, as well as to ensure equal leg lengths. The hip was then gently dislocated and the trials were then removed. Final implants were then impacted and lightly cemented in place. After the cemented hardened, the hip was again reduced. Final fluoroscopic x-rays confirmed that the components were in anatomic position, as well as equal leg lengths. The hip was also taken through range of motion, and found to be stable. The hip was then copiously irrigated with antibiotic solution with pulsatile lavage. The hip was then irrigated with Irrisept solution. The soft tissues were then injected with a ropivacaine solution, which consisted of 246.25 mg of ropivacaine, 0.5 mg of epinephrine, 30 mg of Toradol, 80 g of clonidine, and 48.45 mL of sterile water, for a total of 100 mL of fluid injected. A second dose of 1 g of Tranexamic acid was also given. the fascia was then closed with 2-0 strata fix suture. The subcutaneous tissue was closed with 3-0 Vicryl. The subcuticular tissue was closed with 3-0 strata fix suture. The skin was then closed with Dermabond glue and a sterile silver dressing. The patient was then transferred to the recovery room in stable condition. The assistant account manager CHAZ Sandoval was required due to the complexity of surgery, and the need for skilled assistant teacher primary for positioning, draping, exposure, retraction, and closure of the wound.
[2018-08-05] MEDS ORDERED: VANCOMYCIN 1,575 MG in SODIUM CHLORIDE 0.9% 250 ML IVPB ONE (16:51)
[2018-08-05] MEDS ORDERED: ONDANSETRON 4 MG/2 ML VIAL IVP PRN (16:51)
[2018-08-05] MEDS ORDERED: MAGNESIUM HYDROXIDE 2,400 MG/10 ML CUP PO PRN (16:51)
[2018-08-05] MEDS ORDERED: NALOXONE 0.4 MG/ML 1 ML VIAL IV PRN (16:51)
[2018-08-05] MEDS ORDERED: HYDROmorphone 0.5 MG/0.5 ML SYRINGE IVP PRN ×3 (16:51)
[2018-08-05] MEDS ORDERED: HYDROmorphone 1 MG/ML 1 ML SYRINGE IVP ONE (17:09)
[2018-08-05] MEDS ORDERED: Potassium Replacement Protocol 1 EACH MISC MISCELLANE PRN (17:25)
[2018-08-05] MEDS: FUROSEMIDE 20 MG TAB PO SCH (17:29)
[2018-08-05] MEDS: SODIUM CHLORIDE 0.9% 1,000 ML IV SCH ×2 (17:29→17:45)
--- NOTE | 2018-08-05 17:45 | XR ---
Right hip single view. History postop. Comparison 08/04/2018. FINDINGS: There is a right hip prosthesis. Components appear in anatomic position. Right hemipelvis that is vis ualized appears intact. IMPRESSION: Right hip prosthesis. No complicating process seen.
--- NOTE | 2018-08-05 18:42 | P.PN ---
Subjective Progress Note Date: 08/05/18 Principal diagnosis: Septic arthritis of the right hip Patient was seen and examined. No acute events overnight. Seen post or, antibiotic spacer. Patient reports well-controlled pain at the site of incision in the right hip. He denies any chest pain, shortness of breath or palpitations. Objective - Vital Signs Vital signs: Vital Signs Temp 97.9 F 08/05/18 13:51 Pulse 72 08/05/18 13:51 Resp 16 08/05/18 13:51 BP 132/62 08/05/18 13:51 Pulse Ox 99 08/05/18 13:51 Intake & Output 08/04/18 08/05/18 08/05/18 18:59 06:59 18:59 Intake Total 600 451.5 Output Total 600 Balance 600 -148.5 Intake: IV 451.5 Oral 600 Output: Urine 600 Other: # Voids 2 3 # Bowel Movements 1 2 - Exam General: [non toxic], [no distress], [appears at stated age] Derm: [warm], [dry] Head: [atraumatic], [normocephalic], [symmetric] Eyes: [EOMI], [no lid lag], [anicteric sclera] Mouth: [no lip lesion], [mucus membranes moist] Cardiovascular: [S1S2 reg], [no murmur], [positive posterior tibial pulse bilateral] Lungs: [CTA bilateral], [no rhonchi, no rales] , [no accessory muscle use] Abdominal: [soft], [ nontender to palpation], [no guarding], [no appreciable organomegaly] Ext: [no gross muscle atrophy], [no edema], [no contractures] Neuro: [right hip limited range of motion due to pain, right hip lateral dressing clean dry and intact] Psych: [Alert], [oriented], [appropriate affect] - Labs CBC & Chem 7: 08/05/18 09:36 08/05/18 09:36 Labs: Abnormal Lab Results - Last 24 Hours (Table) 08/05/18 08/05/18 Range/Units 09:36 09:36 RBC 3.69 L (4.30-5.90) m/uL Hgb 10.4 L (13.0-17.5) gm/dL Hct 33.6 L (39.0-53.0) % MCHC 30.9 L (31.0-37.0) g/dL Lymphocytes # 0.9 L (1.0-4.8) k/uL Sodium 135 L (137-145) mmol/L Potassium 3.4 L (3.5-5.1) mmol/L Creatinine 0.58 L (0.66-1.25) mg/dL Glucose 103 H (74-99) mg/dL Alkaline Phosphatase 128 H (38-126) U/L Total Protein 5.1 L (6.3-8.2) g/dL Albumin 2.7 L (3.5-5.0) g/dL Assessment and Plan Assessment: Assessment and Plan 1. 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 Constipation 3. Anemia secondary to acute blood loss postoperatively 4. Hypothyroidism 5. Atrial fibrillation 1. Status post washout on 07/28/2018 and antibiotic spacer inserted 2018. DJD seen on the right hip from CT, confirmed on MRI but unable to exclude infection, metastasis. Patient initially afebrile with no leukocytosis. Wound cultures collected during washout grew gram-positive cocci. Infectious disease consulted, recommends continuing vancomycin IV and follow final wound cultures. Tylenol as needed for fever. Morphine IV or oxycodone as needed for severe pain. Weightbearing as per orthopedic recommendations. Will follow physical therapy, orthopedic and infectious disease recommendations. Will follow right hip wound cultures. 2. Likely secondary to opiate use for pain management. Docusate is 100 mg by mouth twice a day scheduled and as needed for constipation. Lactulose as needed. 3. Hemoglobin maintaining stable at 10.4 this morning. Daily CBC. Transfuse if hemoglobin is less than 7. 4. Stable. Continue Synthroid 75 g by mouth daily. 5. Continue metoprolol 25 mg by mouth twice a day. Not on anticoagulation. Patient admitted for septic arthritis. Currently on IV vancomycin post antibiotic spacer today. Infectious disease and orthopedic surgery on consult.
[2018-08-05] MEDS: POLYETHYLENE GLYCOL 3350 17 GM POWD.PACK PO SCH (21:38)
[2018-08-05 23:06] VITALS: RESP 18
--- NOTE | 2018-08-05 23:53 | PN ---
PROGRESS NOTE DATE OF SERVICE: 08/05/2018. REASON FOR FOLLOWUP: Right hip septic arthritis. INTERVAL HISTORY: The patient was seen on rounds earlier this afternoon when the patient was waiting for his surgery. The patient denies having any chest pain or shortness of breath or cough. No abdominal pain. Pain to the right hip was controlled. PHYSICAL EXAMINATION: Blood pressure 120/70 with a pulse of 81, temperature 98.7. He is 90% on room air. General description is an elderly male lying in bed in no distress. RESPIRATORY SYSTEM: Unlabored breathing. Clear to auscultation anteriorly. HEART: S1, S2. Regular rate and rhythm. ABDOMEN: Soft. No tenderness. EXTREMITIES: No edema of the feet. LABS: Hemoglobin 10.4 with a white count of 7.2 with a BUN of 10, creatinine 0.58. DIAGNOSTIC IMPRESSION AND PLAN: Patient with right hip status post debridement. Now the patient did have implantation of antibiotic spacer. Patient on vancomycin. Will wait for the repeat culture to finalize that was done today and continue with the PICC line will be placed for the outpatient antibiotic therapy. Continue with supportive care. MMODL / IJN: [id number] /
[2018-08-06] MEDS: oxyCODONE-APAP 7.5-325MG 1 EACH TAB PO PRN ×5 (00:10→23:55)
[2018-08-06] MEDS ORDERED: VANCOMYCIN TROUGH DUE 1 EACH MISC MISCELLANE ONE (05:00)
[2018-08-06 05:40] LABS: Basophils % (A) 0 %; Eosinophils # (A) 0.1 k/uL (0-0.7); Eosinophils % (A) 1 %; HGB 9.8 gm/dL (13.0-17.5); Hypochromasia Slight; Lymphocytes # (A) 1.1 k/uL (1.0-4.8); Lymphocytes % (A) 11 %; MCH 29.2 pg (25.0-35.0); MCHC 31.5 g/dL (31.0-37.0); MCV 92.5 fL (80.0-100.0); Monocytes # (A) 0.6 k/uL (0-1.0); Monocytes % (A) 6 %; Neutrophils # (A) 8.7 k/uL (1.3-7.7); Neutrophils % (A) 82 %; Platelet Count 382 k/uL (150-450); RBC 3.35 m/uL (4.30-5.90); WBC 10.7 k/uL (3.8-10.6)
[2018-08-06 05:52] LABS: Anion Gap 5 mmol/L; Blood Urea Nitrogen 13 mg/dL (9-20); Calcium 7.9 mg/dL (8.4-10.2); Carbon Dioxide 28 mmol/L (22-30); Chloride 100 mmol/L (98-107); Glucose 114 mg/dL (74-99); Potassium 3.8 mmol/L (3.5-5.1); Sodium 133 mmol/L (137-145)
[2018-08-06] MEDS: VANCOMYCIN 1,750 MG in SODIUM CHLORIDE 0.9% 500 ML 500 ML IVPB SCH ×2 (06:46→17:33)
[2018-08-06] MEDS: LEVOTHYROXINE 75 MCG TAB PO SCH (06:47)
--- NOTE | 2018-08-06 07:15 | FL ---
EXAMINATION TYPE: FL guidance operating room DATE OF EXAM: 08/05/2018 HISTORY: Flouroscopy time 40 seconds of fluoroscopy provided. IMPRESSION: 1. Fluoroscopy time.
[2018-08-06] MEDS: DOCUSATE 100 MG CAP PO SCH ×2 (07:31→21:54)
[2018-08-06] MEDS: FUROSEMIDE 40 MG TAB PO SCH (07:31)
[2018-08-06] MEDS: METOPROLOL TARTRATE 25 MG TAB PO SCH ×2 (07:31→21:53)
[2018-08-06] MEDS: RIVAROXABAN 10 MG TAB PO SCH (07:31)
[2018-08-06] MEDS: SENNOSIDES-DOCUSATE SODIUM 1 EACH TAB PO SCH (07:32)
[2018-08-06] MEDS: SODIUM CHLORIDE 0.9% 1,000 ML IV SCH ×3 (07:32→14:49)
--- NOTE | 2018-08-06 07:41 | XR ---
EXAMINATION TYPE: XR Hip Limited RT DATE OF EXAM: 08/05/2018 COMPARISON: NONE HISTORY: Operative procedure TECHNIQUE: One view submitted. FINDINGS: There is postsurgical change are noted. Exam limited by intraoperative resolution. IMPRESSION: 1. Postoperative image
--- NOTE | 2018-08-06 09:08 | P.PN ---
Subjective Progress Note Date: 08/06/18 This is a 78-year-old male who is status post stage I antibiotic spacer placement for septic arthritis of the right hip. This is postoperative day #1 and patient is seen and evaluated at bedside with Dr. Max Brian. Patient states that his pain is under control, but he has not been out of bed yet. Patient denies any fever/chills, numbness, weakness, tingling, abdominal pain, shortness of breath or chest pain. Objective - Vital Signs Vital signs: Vital Signs Temp 99.6 F 08/06/18 07:35 Pulse 101 H 08/06/18 06:00 Resp 18 08/06/18 06:00 BP 119/62 08/06/18 06:00 Pulse Ox 94 L 08/06/18 06:00 Intake & Output 08/05/18 08/06/18 08/06/18 18:59 06:59 18:59 Intake Total 651.5 Output Total 650 650 Balance 1.5 -650 Intake: IV 651.5 Output: Urine 600 650 Estimated Blood Loss 50 Other: Voiding Method Urinal - Exam Vital signs are stable. Patient is in no acute distress and is alert and oriented 3. Calf is soft and nontender to palpation. Dressing is clean, dry, and intact. Patient has full foot and ankle motion without pain or difficulty. Neurovascular status and circulatory status are intact. - Labs CBC & Chem 7: 08/06/18 05:29 08/06/18 05:29 Labs: Abnormal Lab Results - Last 24 Hours (Table) 08/05/18 08/05/18 08/06/18 Range/Units 09:36 09:36 05:29 WBC (3.8-10.6) k/uL RBC 3.69 L (4.30-5.90) m/uL Hgb 10.4 L (13.0-17.5) gm/dL Hct 33.6 L (39.0-53.0) % MCHC 30.9 L (31.0-37.0) g/dL Neutrophils # (1.3-7.7) k/uL Lymphocytes # 0.9 L (1.0-4.8) k/uL Sodium 135 L 133 L (137-145) mmol/L Potassium 3.4 L (3.5-5.1) mmol/L Creatinine 0.58 L 0.61 L (0.66-1.25) mg/dL Glucose 103 H 114 H (74-99) mg/dL Calcium 7.9 L (8.4-10.2) mg/dL Alkaline Phosphatase 128 H (38-126) U/L Total Protein 5.1 L (6.3-8.2) g/dL Albumin 2.7 L (3.5-5.0) g/dL 08/06/18 Range/Units 05:29 WBC 10.7 H (3.8-10.6) k/uL RBC 3.35 L (4.30-5.90) m/uL Hgb 9.8 L (13.0-17.5) gm/dL Hct 31.0 L (39.0-53.0) % MCHC (31.0-37.0) g/dL Neutrophils # 8.7 H (1.3-7.7) k/uL Lymphocytes # (1.0-4.8) k/uL Sodium (137-145) mmol/L Potassium (3.5-5.1) mmol/L Creatinine (0.66-1.25) mg/dL Glucose (74-99) mg/dL Calcium (8.4-10.2) mg/dL Alkaline Phosphatase (38-126) U/L Total Protein (6.3-8.2) g/dL Albumin (3.5-5.0) g/dL Microbiology - Last 24 Hours (Table) 08/05/18 16:23 Gram Stain - Preliminary Hip - Right Wound Culture - Preliminary 08/05/18 16:23 Gram Stain - Preliminary Hip - Right Wound Culture - Preliminary 08/05/18 16:23 Anaerobic Culture - Preliminary Hip - Right 08/05/18 16:23 Anaerobic Culture - Preliminary Hip - Right Assessment and Plan Assessment: Hypothyroidism Atrial fibrillation Status post stage I antibiotic spacer placement for septic arthritis right hip. (1) Inability to ambulate due to hip Current Visit: Yes Status: Acute Code(s): R26.2 - DIFFICULTY IN WALKING, NOT ELSEWHERE CLASSIFIED SNOMED Code(s): 336498143 (2) Intractable pain Current Visit: Yes Status: Acute Code(s): R52 - PAIN, UNSPECIFIED SNOMED Code(s): 23162040 (3) Osteoarthritis of right hip Current Visit: Yes Status: Acute Code(s): M16.11 - UNILATERAL PRIMARY OSTEOARTHRITIS, RIGHT HIP SNOMED Code(s): 124678825980720 (4) Right hip pain Current Visit: Yes Status: Acute Code(s): M25.551 - PAIN IN RIGHT HIP SNOMED Code(s): 44645107 Plan: Continue routine postop care and pain control. DVT prophylaxis with Xarelto. Weightbearing as tolerated with a walker. Physical therapy for mobilization. Leave dressing in place for 10 days. Appreciate input from internal medicine and infectious disease. Attempting transfer to [address] [place] [address] [facility]. Anticipate discharge to rehab in the next 1-2 days.
--- NOTE | 2018-08-06 10:47 | P.PN ---
Subjective Progress Note Date: 08/06/18 Principal diagnosis: Septic arthritis of right hip Patient was seen and examined. No acute events overnight. Patient reports lateral right hip pain, radiating into the right groin, chronic in nature, actually improved after spacer procedure. He denies any numbness or tingling of the lower extremities. No weakness. No bladder or bowel incontinence, saddle anesthesia. He denies any chest pain, shortness of breath or palpitations. No bowel movement but passing gas. No changes in urination. Objective - Vital Signs Vital signs: Vital Signs Temp 99.6 F 08/06/18 07:35 Pulse 101 H 08/06/18 06:00 Resp 18 08/06/18 06:00 BP 119/62 08/06/18 06:00 Pulse Ox 94 L 08/06/18 06:00 Intake & Output 08/05/18 08/06/18 08/06/18 18:59 06:59 18:59 Intake Total 651.5 Output Total 650 650 Balance 1.5 -650 Intake: IV 651.5 Output: Urine 600 650 Estimated Blood Loss 50 Other: Voiding Method Urinal - Exam General: [non toxic], [no distress], [appears at stated age] Derm: [warm], [dry] Head: [atraumatic], [normocephalic], [symmetric] Eyes: [EOMI], [no lid lag], [anicteric sclera] Mouth: [no lip lesion], [mucus membranes moist] Cardiovascular: [S1S2 reg], [no murmur], [positive posterior tibial pulse bilateral] Lungs: [CTA bilateral], [no rhonchi, no rales] , [no accessory muscle use] Abdominal: [soft], [ nontender to palpation], [no guarding], [no appreciable organomegaly] Ext: [no gross muscle atrophy], [no edema], [no contractures] Neuro: [right hip lateral dressing clean dry and intact] Psych: [Alert], [oriented], [appropriate affect] - Labs CBC & Chem 7: 08/06/18 05:29 08/06/18 05:29 Labs: Abnormal Lab Results - Last 24 Hours (Table) 08/06/18 08/06/18 Range/Units 05:29 05:29 WBC 10.7 H (3.8-10.6) k/uL RBC 3.35 L (4.30-5.90) m/uL Hgb 9.8 L (13.0-17.5) gm/dL Hct 31.0 L (39.0-53.0) % Neutrophils # 8.7 H (1.3-7.7) k/uL Sodium 133 L (137-145) mmol/L Creatinine 0.61 L (0.66-1.25) mg/dL Glucose 114 H (74-99) mg/dL Calcium 7.9 L (8.4-10.2) mg/dL Microbiology - Last 24 Hours (Table) 08/05/18 16:23 Gram Stain - Preliminary Hip - Right Wound Culture - Preliminary 08/05/18 16:23 Gram Stain - Preliminary Hip - Right Wound Culture - Preliminary 08/05/18 16:23 Anaerobic Culture - Preliminary Hip - Right 08/05/18 16:23 Anaerobic Culture - Preliminary Hip - Right Assessment and Plan Assessment: Assessment and Plan 1. 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 Constipation 3. Anemia secondary to acute blood loss postoperatively 4. Hypothyroidism 5. Atrial fibrillation 1. Status post washout on 07/28/2018 and antibiotic spacer inserted 2018. DJD seen on the right hip from CT, confirmed on MRI but unable to exclude infection, metastasis. Patient initially afebrile with no leukocytosis. Wound cultures collected during washout grew gram-positive cocci. Infectious disease consulted, recommends continuing vancomycin IV and follow final wound cultures. Tylenol as needed for fever. Morphine IV or oxycodone as needed for severe pain. Weightbearing as per orthopedic recommendations. Will follow physical therapy, orthopedic and infectious disease recommendations. Will follow right hip wound cultures. 2. Likely secondary to opiate use for pain management. Docusate is 100 mg by mouth twice a day scheduled and as needed for constipation. Lactulose as needed. 3. Hemoglobin maintaining stable at 10.4 to 9.8 this morning. Likely secondary to blood loss from surgery. Daily CBC. Transfuse if hemoglobin is less than 7. 4. Stable. Continue Synthroid 75 g by mouth daily. 5. Continue metoprolol 25 mg by mouth twice a day. Not on anticoagulation due to risk of falls. Patient admitted for septic arthritis. Currently on IV vancomycin. Pending hip wound cultures to tailor antibiotics. Discharge to [facility] when cleared by orthopedic surgery and infectious disease.
[2018-08-06] MEDS ORDERED: LIDOCAINE 1% INJ 10MG/ML (20 ML MDV) ONE (13:53)
[2018-08-06] MEDS ORDERED: LIDOCAINE 1% INJ 10MG/ML (20 ML MDV) SQ ONE (14:22)
[2018-08-06] MEDS: FUROSEMIDE 20 MG TAB PO SCH (14:48)
--- NOTE | 2018-08-06 15:47 | IR ---
EXAMINATION TYPE: IR cvc insert >=5 years DATE OF EXAM: 08/06/2018 COMPARISON: NONE CLINICAL HISTORY: Infection Needs long-term intravenous access for antibiotics. PROCEDURE: After informed consent, the skin overlying the left basilic vein was localized with ultrasound and no yonas to be compressible and patent. An ultrasound image was obtained and submitted on the patient's c oseguera. The overlying skin was prepped and draped and Lidocaine was used for local anesthesia. A skin jazlyn was made with a scalpel. Access was gained to the vein under ultrasound guidance with a 21 gau ge needle and a 0.018 inch wire was advanced. Access site was dilated with Peel-Away sheath and cath eter tailored to the appropriate length and advanced such that the distal tip is at the cavoatrial ju nction. Spot image was obtained verifying placement. Catheter was fixed to the skin and a sterile d ressing was placed following hemostasis. Catheter was aspirated and flushed with saline. Patient wa s discharged in stable condition without complication. Maximal barrier technique is utilized. Ultras ound image is documented on the chart. Ultrasound used with sterile technique. Fluoro time and fluoroscopic images submitted to document procedure: 0.1 minutes fluoroscopy time, 11 9 intraoperative images document the procedure IMPRESSION: STATUS POST ULTRASOUND AND FLUOROSCOPIC GUIDED PICC LINE PLACEMENT, READY FOR USE. THIS PROCEDURE WAS PERFORMED BY THE UNDERSIGNED.
[2018-08-06] MEDS: POLYETHYLENE GLYCOL 3350 17 GM POWD.PACK PO SCH (21:54)
--- NOTE | 2018-08-06 23:42 | PN ---
PROGRESS NOTE DATE OF SERVICE: 08/06/2018 REASON FOR FOLLOWUP: Right hip septic arthritis. INTERVAL HISTORY: The patient did spike a fever today of 101.5 degrees Fahrenheit. The patient is afebrile afterward. The patient has been breathing comfortably. He did have extensive surgery done yesterday, which the patient tolerated. He denies having any chest pain, shortness of breath or cough. No abdominal pain. No diarrhea. PHYSICAL EXAMINATION: Blood pressure 103/57, pulse of 98, temperature 98.4 degrees Fahrenheit. He is 100% on room air. General description is an elderly male up in the bed in no distress. RESPIRATORY SYSTEM: Unlabored breathing. Clear to auscultation anteriorly. HEART: S1, S2. Regular rate and rhythm. ABDOMEN: Soft. No tenderness. EXTREMITIES: No edema of the feet. LABS: Hemoglobin 9.8, white count of 10.7, BUN of 13, creatinine 0.61. Culture done yesterday remains negative. DIAGNOSTIC IMPRESSION AND PLAN: Patient with right hip pain with underlying septic arthritis which was the clinical finding on surgery, status post debridement and placement of antibiotic spacer. The patient is currently on vancomycin; to continue. Blood culture has been done this morning with the episode of fever. Those will be monitored, including blood cultures that were done yesterday at the time of surgery. Monitor his clinical course closely. Family present at the bedside. Questions were answered. [id number] / IJN: [id number] /
[2018-08-07] MEDS: VANCOMYCIN 1,750 MG in SODIUM CHLORIDE 0.9% 500 ML 500 ML IVPB SCH ×2 (06:46→16:50)
[2018-08-07] MEDS: LEVOTHYROXINE 75 MCG TAB PO SCH (06:46)
[2018-08-07] MEDS: oxyCODONE-APAP 7.5-325MG 1 EACH TAB PO PRN ×2 (06:47→13:34)
[2018-08-07] MEDS: METOPROLOL TARTRATE 25 MG TAB PO SCH ×2 (09:11→21:40)
[2018-08-07] MEDS: RIVAROXABAN 10 MG TAB PO SCH (09:11)
[2018-08-07] MEDS: FUROSEMIDE 40 MG TAB PO SCH (09:11)
[2018-08-07] MEDS: SENNOSIDES-DOCUSATE SODIUM 1 EACH TAB PO SCH (09:12)
[2018-08-07] MEDS: DOCUSATE 100 MG CAP PO SCH ×2 (09:12→20:47)
--- NOTE | 2018-08-07 09:36 | P.PN ---
Subjective Progress Note Date: 08/07/18 This is a 78-year-old male who is status post stage I antibiotic spacer placement for septic arthritis of the right hip. This is postoperative day #2 and patient is seen and evaluated at bedside. Patient reports some soreness in the right hip today. Patient states that he has been up and walking to the commode and back. Patient denies any fever/chills, numbness, weakness, tingling , abdominal pain, shortness of breath or chest pain. Objective - Vital Signs Vital signs: Vital Signs Temp 98.0 F 08/07/18 06:15 Pulse 79 08/07/18 06:15 Resp 18 08/07/18 06:15 BP 108/52 08/07/18 06:15 Pulse Ox 94 L 08/07/18 06:15 Intake & Output 08/06/18 08/07/18 08/07/18 18:59 06:59 18:59 Intake Total 600 Output Total 700 Balance -100 Weight 104.326 kg Intake: Oral 600 Output: Urine 700 Other: Voiding Method Urinal # Voids 2 3 - Exam Vital signs are stable. Patient is in no acute distress and is alert and oriented 3. Calf is soft and nontender to palpation. Dressing is clean, dry, and intact. Patient has full foot and ankle motion without pain or difficulty. Neurovascular status and circulatory status are intact. - Labs CBC & Chem 7: 08/06/18 05:29 08/06/18 05:29 Labs: Microbiology - Last 24 Hours (Table) 08/05/18 16:23 Gram Stain - Preliminary Hip - Right Wound Culture - Preliminary 08/05/18 16:23 Gram Stain - Preliminary Hip - Right Wound Culture - Preliminary Assessment and Plan Assessment: Hypothyroidism Atrial fibrillation Status post stage I antibiotic spacer placement for septic arthritis right hip. (1) Inability to ambulate due to hip Current Visit: Yes Status: Acute Code(s): R26.2 - DIFFICULTY IN WALKING, NOT ELSEWHERE CLASSIFIED SNOMED Code(s): 315653270 (2) Intractable pain Current Visit: Yes Status: Acute Code(s): R52 - PAIN, UNSPECIFIED SNOMED Code(s): 62823578 (3) Osteoarthritis of right hip Current Visit: Yes Status: Acute Code(s): M16.11 - UNILATERAL PRIMARY OSTEOARTHRITIS, RIGHT HIP SNOMED Code(s): 097252720792871 (4) Right hip pain Current Visit: Yes Status: Acute Code(s): M25.551 - PAIN IN RIGHT HIP SNOMED Code(s): 58194728 Plan: Continue routine postop care and pain control. DVT prophylaxis with Xarelto. Weightbearing as tolerated with a walker. Physical therapy for mobilization. Leave dressing in place for 10 days. Appreciate input from internal medicine and infectious disease. Patient received a PICC line yesterday. IV antibiotics per infectious disease. Anticipate discharge to rehab in the next 1-2 days.
[2018-08-07 09:42] LABS: Anion Gap 5 mmol/L; Blood Urea Nitrogen 17 mg/dL (9-20); Calcium 8.4 mg/dL (8.4-10.2); Carbon Dioxide 30 mmol/L (22-30); Chloride 100 mmol/L (98-107); Glucose 144 mg/dL (74-99); Potassium 3.4 mmol/L (3.5-5.1); Sodium 135 mmol/L (137-145)
[2018-08-07] MEDS: FUROSEMIDE 20 MG TAB PO SCH (13:34)
--- NOTE | 2018-08-07 13:50 | P.DS ---
Providers Date of admission: 07/23/18 16:26 Expected date of discharge: 08/07/18 Attending physician: Caleb Almaraz MD Consults: 07/22/18 14:02 Consult Physician Stat Consulting Provider: Dalila Ron Consult Reason/Comments: right hip pain, intractable pain, inability to ambulate Do you want consulting provider notified?: Yes 07/23/18 13:10 Consult Physician Routine Consulting Provider: Jc Ly Consult Reason/Comments: r/o right hip infectious process, fast deterioration of joint Do you want consulting provider notified?: Yes Primary care physician: [facility] Course: 78-year-old male with history of A. fib not on anticoagulation, hyperactive bladder, hypothyroid Patient presented to the hospital due to severe right hip pain. He reported pain over the past 3 months has been progressive in nature however yesterday he was not even able to take any steps or weight-bear over his right lower extremity due to extreme pain. Patient indicated that took him over an hour to get from the couch to the bathroom and was very challenging she was worried that he might fall. He denies any focal neurologic deficits like numbness tingling or any weakness in his right lower extremity or left lower extremity. But reports that pain is limiting his activity. This has been progressive over the past 3 months described as sharp pain whenever he tries to move his lower extremities or weight-bear, pain would be 10 out of 10 in severity over the right hip radiating to the groin. Denies any low back pain. Denies any saddle numbness or tingling. Denies any changes in his urination or bowel movements. MRI of his lower back was ordered when he was evaluated by orthopedic recently however he couldn't get the MRI done due to having bladder nerve stimulator over his right hip he got that surgically removed few days ago for which she is on Keflex now. He had the MRI scheduled to be done in 2 days. However he didn't tolerate the pain at home anymore his home pain medications are not helping when he is taking Lawrence's and ibuprofens and decided to come the hospital seeking medical advice. In the emergency department CT of the head showed severe advanced degenerative joint disease of right hip. Orthopedic recommended admission to medicine for pain management pending further recommendations. With regarding his hip pain, orthopedic surgery was consulted. Orthopedic surgery recommended infectious workup due to the rapid deterioration of the right hip compared to images from 3-4 months ago. As such, infectious disease was consulted. Patient was noted to have an elevated ESR and CRP. His pain was controlled with Percocet and morphine as needed. MRI of the right hip performed on 07/24/2018 showed advanced osteoarthritic changes of the right hip with extensive remodeling, irregular signal, cannot exclude infection or metastasis. Patient was started on IV vancomycin and ceftazadime for antibiotic coverage. Patient was taken to the OR on 07/28/2018 for right hip irrigation and debridement with placement of antibiotic beads with hip cultures to be obtained. The wound cultures grew rare gram-positive cocci. Patient was again taken to the OR on 08/05/2018 for placement of antibiotic spacer. Patient showed considerable improvement throughout his hospital admission with regard to his right hip pain. Patient had complaints of constipation that was managed with docusate and lactulose. Otherwise, his home medications were resumed. Patient was seen and examined prior to discharge. No acute events overnight. She reports mild right lateral hip pain radiating to the groin. Pain has improved greatly since admission. Patient reports that he is able to work with physical therapy. Plans for [facility] on discharge. Spiked a fever this morning. Cultures collected, pending. General: [non toxic], [no distress], [appears at stated age] Derm: [warm], [dry] Head: [atraumatic], [normocephalic], [symmetric] Eyes: [EOMI], [no lid lag], [anicteric sclera] Mouth: [no lip lesion], [mucus membranes moist] Cardiovascular: [S1S2 reg], [no murmur], [positive posterior tibial pulse bilateral] Lungs: [CTA bilateral], [no rhonchi, no rales] , [no accessory muscle use] Abdominal: [soft], [ nontender to palpation], [no guarding], [no appreciable organomegaly] Ext: [no gross muscle atrophy], [no edema], [no contractures] Neuro: [right hip lateral dressing clean dry and intact] Psych: [Alert], [oriented], [appropriate affect] Assessment and Plan 1. 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 Constipation 3. Anemia secondary to acute blood loss postoperatively 4. Hypothyroidism 5. Atrial fibrillation 1. Status post washout on 07/28/2018 and antibiotic spacer inserted 2018. DJD seen on the right hip from CT, confirmed on MRI but unable to exclude infection, metastasis. Patient initially afebrile with no leukocytosis. Wound cultures collected during washout grew gram-positive cocci. Infectious disease consulted, recommends continuing vancomycin IV and follow final wound cultures. Tylenol as needed for fever. Morphine IV or oxycodone as needed for severe pain. Weightbearing as per orthopedic recommendations. Will follow physical therapy, orthopedic and infectious disease recommendations. Will follow right hip wound cultures. 2. Likely secondary to opiate use for pain management. Docusate is 100 mg by mouth twice a day scheduled and as needed for constipation. Lactulose as needed. 3. Hemoglobin maintaining stable at 10.4 to 9.8 this morning. Likely secondary to blood loss from surgery. Daily CBC. Transfuse if hemoglobin is less than 7. 4. Stable. Continue Synthroid 75 g by mouth daily. 5. Continue metoprolol 25 mg by mouth twice a day. Not on anticoagulation due to risk of falls. Patient admitted for septic arthritis. Currently on IV vancomycin. Pending hip wound cultures to tailor antibiotics. Discharge to [facility] when cleared by infectious disease. This complex discharge took greater than 30 minutes. Pertinent Studies: Hip x-ray, hip MRI, head CT Procedures: Right hip washout, placement of antibiotic beads, placement of antibiotic spacer Patient Condition at Discharge: Good Plan - Discharge Summary Discharge Rx Participant: No New Discharge Prescriptions: New Rivaroxaban [Xarelto] 10 mg PO DAILY #30 tab Docusate [Colace] 100 mg PO BID cap Magnesium Hydroxide [Milk of Magnesia Concentrate] 2,400 mg PO DAILY PRN ml PRN Reason: Constipation Continue oxyCODONE HCL/ACETAMINOPHEN [Percocet 7.5-325 mg] 1 tab PO Q4HR PRN PRN Reason: Pain Metoprolol Tartrate [Lopressor] 25 mg PO BID Levothyroxine Sodium [Levoxyl] 75 mcg PO DAILY Furosemide [Lasix] 40 mg PO DAILY Furosemide [Lasix] 20 mg PO DAILY@1400 Discontinued Potassium Chloride [Klor-Con 10] 20 meq PO DAILY Cephalexin [Keflex] 500 mg PO Q8HR Discharge Medication List Furosemide [Lasix] 20 mg PO DAILY@1400 07/22/18 [History] Furosemide [Lasix] 40 mg PO DAILY 07/22/18 [History] Levothyroxine Sodium [Levoxyl] 75 mcg PO DAILY 07/22/18 [History] Metoprolol Tartrate [Lopressor] 25 mg PO BID 07/22/18 [History] oxyCODONE HCL/ACETAMINOPHEN [Percocet 7.5-325 mg] 1 tab PO Q4HR PRN 07/22/18 [ History] Docusate [Colace] 100 mg PO BID cap 08/07/18 [Rx] Magnesium Hydroxide [Milk of Magnesia Concentrate] 2,400 mg PO DAILY PRN ml [Rx] Rivaroxaban [Xarelto] 10 mg PO DAILY #30 tab 08/07/18 [Rx] Follow up Appointment(s)/Referral(s): Cristo Lyn DO [Primary Care Provider] - 1-2 days Max Brian DO [Doctor of Osteopathic Medicine] - 1 Week Jc Ly MD [STAFF PHYSICIAN] - 1 Week Activity/Diet/Wound Care/Special Instructions: Weightbearing as tolerated with walker. Leave dressing intact. Dressing may be removed by home care nurse or by patient in 10 days. May shower with dressing on. Please follow-up with [facility] in 2 weeks and call with any questions or concerns, . Discharge Disposition: TRANSFER TO SNF/ECF
[2018-08-07] MEDS: SODIUM CHLORIDE 0.9% 1,000 ML IV SCH ×2 (15:06→16:13)
[2018-08-07] MEDS: POLYETHYLENE GLYCOL 3350 17 GM POWD.PACK PO SCH (20:47)
--- NOTE | 2018-08-07 23:04 | PN ---
PROGRESS NOTE DATE OF SERVICE: 08/07/2018 REASON FOR FOLLOW UP: Right hip septic arthritis. INTERVAL HISTORY: The patient is afebrile. The patient is breathing comfortably. Denies having any chest pain or cough. No abdominal pain or any worsening pain in the right hip area. No diarrhea with antibiotic therapy. PHYSICAL EXAMINATION: Blood pressure 94/60 with a pulse of 99, temperature 98.3, he is 98% on room air. GENERAL DESCRIPTION: An elderly male up in the chair in no distress. RESPIRATORY SYSTEM: Unlabored breathing. Clear to auscultation anteriorly. HEART: S1, S2. Regular rate and rhythm. ABDOMEN: Soft, no tenderness. LABS: BUN of 17, creatinine 0.61. Vancomycin trough of 17.1. DIAGNOSTIC IMPRESSION AND PLAN: Patient with admission to the hospital with right hip pain in this patient who is status post surgical debridement ( ) was noticed. Cultures were ( ) and shows some gram-positive cocci. Cultures remain negative because of possible nutrition deficient Streptococci. Clinically doubt MRSA as these organisms grew very easily. As the patient is getting ready for discharge will transition him to Rocephin 2 g daily with ( ) outpatient setting and clear this patient for underlying MRSA infection. The patient will need weekly monitoring of CBC, BMP and sed rate as well as CRP baseline will be ordered for tomorrow and close outpatient followup. MMODL / IJN: [id number] /
[2018-08-08] MEDS: oxyCODONE-APAP 7.5-325MG 1 EACH TAB PO PRN ×2 (00:46→08:00)
[2018-08-08] MEDS: SODIUM CHLORIDE 0.9% 1,000 ML IV SCH ×2 (05:15→05:16)
[2018-08-08] MEDS: LEVOTHYROXINE 75 MCG TAB PO SCH (05:15)
[2018-08-08 06:10] VITALS: BP 114/67; PULSE 95; TEMP 98.4
[2018-08-08] MEDS: SENNOSIDES-DOCUSATE SODIUM 1 EACH TAB PO SCH (08:01)
[2018-08-08] MEDS: FUROSEMIDE 40 MG TAB PO SCH (08:01)
[2018-08-08] MEDS: DOCUSATE 100 MG CAP PO SCH (08:01)
[2018-08-08] MEDS: METOPROLOL TARTRATE 25 MG TAB PO SCH (08:01)
[2018-08-08] MEDS: RIVAROXABAN 10 MG TAB PO SCH (08:02)
--- NOTE | 2018-08-08 08:23 | P.PN ---
Subjective Progress Note Date: 08/08/18 This is a 78-year-old male who is status post stage I antibiotic spacer placement for septic arthritis of the right hip. This is postoperative day #3 and patient is seen and evaluated at bedside. Patient states that his pain has been well-controlled. Patient denies any new complaints today. Patient denies any fever/chills, numbness, weakness, tingling, abdominal pain, shortness of breath or chest pain. Objective - Vital Signs Vital signs: Vital Signs Temp 98.4 F 08/08/18 06:09 Pulse 95 08/08/18 06:09 Resp 18 08/08/18 06:09 BP 114/67 08/08/18 06:09 Pulse Ox 94 L 08/08/18 06:09 Intake & Output 08/07/18 08/08/18 08/08/18 18:59 06:59 18:59 Output Total 200 401 Balance -200 -401 Output: Urine 200 400 Stool 1 Other: Voiding Method Urinal # Voids 3 # Bowel Movements 1 1 - Exam Vital signs are stable. Patient is in no acute distress and is alert and oriented 3. Calf is soft and nontender to palpation. Dressings are clean, dry , and intact. Patient has full foot and ankle motion without pain or difficulty. Neurovascular status and circulatory status are intact. - Labs CBC & Chem 7: 08/06/18 05:29 08/07/18 09:05 Labs: Abnormal Lab Results - Last 24 Hours (Table) 08/07/18 Range/Units 09:05 Sodium 135 L (137-145) mmol/L Potassium 3.4 L (3.5-5.1) mmol/L Creatinine 0.61 L (0.66-1.25) mg/dL Glucose 144 H (74-99) mg/dL Microbiology - Last 24 Hours (Table) 08/05/18 16:23 Anaerobic Culture - Preliminary Hip - Right 08/05/18 16:23 Anaerobic Culture - Preliminary Hip - Right 08/05/18 16:23 Gram Stain - Final Hip - Right Wound Culture - Final 08/05/18 16:23 Gram Stain - Preliminary Hip - Right Wound Culture - Preliminary 08/06/18 13:48 Blood Culture - Preliminary Blood No Growth after 24 hours 08/06/18 13:45 Blood Culture - Preliminary Blood No Growth after 24 hours Assessment and Plan Assessment: Hypothyroidism Atrial fibrillation Status post stage I antibiotic spacer placement for septic arthritis right hip. (1) Inability to ambulate due to hip Current Visit: Yes Status: Acute Code(s): R26.2 - DIFFICULTY IN WALKING, NOT ELSEWHERE CLASSIFIED SNOMED Code(s): 121693894 (2) Intractable pain Current Visit: Yes Status: Acute Code(s): R52 - PAIN, UNSPECIFIED SNOMED Code(s): 62391733 (3) Osteoarthritis of right hip Current Visit: Yes Status: Acute Code(s): M16.11 - UNILATERAL PRIMARY OSTEOARTHRITIS, RIGHT HIP SNOMED Code(s): 420762568084792 (4) Right hip pain Current Visit: Yes Status: Acute Code(s): M25.551 - PAIN IN RIGHT HIP SNOMED Code(s): 41976570 Plan: Continue routine postop care and pain control. DVT prophylaxis with Xarelto. Weightbearing as tolerated with a walker. Physical therapy for mobilization. Leave dressing in place for 10 days. Daily dressing changes to posterior incision. IV antibiotics per infectious disease via PICC line. Patient is cleared for discharge to rehab from an orthopedic standpoint.
[2018-08-08 08:59] LABS: Basophils % (A) 0 %; Eosinophils # (A) 0.1 k/uL (0-0.7); Eosinophils % (A) 1 %; HCT 26.6 % (39.0-53.0); HGB 8.8 gm/dL (13.0-17.5); Hypochromasia Slight; Lymphocytes % (A) 12 %; MCH 30.3 pg (25.0-35.0); MCHC 32.9 g/dL (31.0-37.0); MCV 92.2 fL (80.0-100.0); Mean Platelet Volume 6.3; Monocytes # (A) 0.5 k/uL (0-1.0); Monocytes % (A) 6 %; Neutrophils # (A) 6.4 k/uL (1.3-7.7); Neutrophils % (A) 79 %; Platelet Count 369 k/uL (150-450); RBC 2.89 m/uL (4.30-5.90); RDW 13.9 % (11.5-15.5); WBC 8.1 k/uL (3.8-10.6)
[2018-08-08 09:08] LABS: Anion Gap 7 mmol/L; Blood Urea Nitrogen 15 mg/dL (9-20); Calcium 8.2 mg/dL (8.4-10.2); Carbon Dioxide 29 mmol/L (22-30); Chloride 99 mmol/L (98-107); Glucose 104 mg/dL (74-99); Potassium 3.3 mmol/L (3.5-5.1); Sodium 135 mmol/L (137-145)
[2018-08-08 09:52] LABS: C Reactive Protein 215.1 mg/L (<10.0)
--- NOTE | 2018-08-08 10:10 | P.PN ---
Subjective Progress Note Date: 08/08/18 Principal diagnosis: septic arthritis patient seen and examined. No acute events overnight. Patient reports well- controlled pain in the right hip. No fever or chills. No nausea or vomiting. Bowel movement today, normal consistency. He denies any chest pain, shortness of breath or palpitations. No dizziness. Objective - Vital Signs Vital signs: Vital Signs Temp 98.4 F 08/08/18 06:09 Pulse 95 08/08/18 06:09 Resp 18 08/08/18 06:09 BP 114/67 08/08/18 06:09 Pulse Ox 94 L 08/08/18 06:09 Intake & Output 08/07/18 08/08/18 08/08/18 18:59 06:59 18:59 Output Total 200 401 Balance -200 -401 Output: Urine 200 400 Stool 1 Other: Voiding Method Urinal # Voids 3 # Bowel Movements 1 1 - Exam General: [non toxic], [no distress], [appears at stated age] Derm: [warm], [dry] Head: [atraumatic], [normocephalic], [symmetric] Eyes: [EOMI], [no lid lag], [anicteric sclera] Mouth: [no lip lesion], [mucus membranes moist] Cardiovascular: [S1S2 reg], [no murmur], [positive posterior tibial pulse bilateral] Lungs: [CTA bilateral], [no rhonchi, no rales] , [no accessory muscle use] Abdominal: [soft], [ nontender to palpation], [no guarding], [no appreciable organomegaly] Ext: [no gross muscle atrophy], [no edema], [no contractures] Neuro: [right hip lateral dressing clean dry and intact] Psych: [Alert], [oriented], [appropriate affect] - Labs CBC & Chem 7: 08/08/18 08:06 08/08/18 08:06 Labs: Abnormal Lab Results - Last 24 Hours (Table) 08/08/18 08/08/18 Range/Units 08:06 08:06 RBC 2.89 L (4.30-5.90) m/uL Hgb 8.8 L (13.0-17.5) gm/dL Hct 26.6 L (39.0-53.0) % Sodium 135 L (137-145) mmol/L Potassium 3.3 L (3.5-5.1) mmol/L Creatinine 0.55 L (0.66-1.25) mg/dL Glucose 104 H (74-99) mg/dL Calcium 8.2 L (8.4-10.2) mg/dL C-Reactive Protein 215.1 H (<10.0) mg/L Microbiology - Last 24 Hours (Table) 08/05/18 16:23 Anaerobic Culture - Preliminary Hip - Right 08/05/18 16:23 Anaerobic Culture - Preliminary Hip - Right 08/05/18 16:23 Gram Stain - Final Hip - Right Wound Culture - Final 08/05/18 16:23 Gram Stain - Preliminary Hip - Right Wound Culture - Preliminary 08/06/18 13:48 Blood Culture - Preliminary Blood No Growth after 24 hours 08/06/18 13:45 Blood Culture - Preliminary Blood No Growth after 24 hours Assessment and Plan Assessment: Assessment and Plan 1. 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 Fever 3. Constipation 4. Anemia secondary to acute blood loss postoperatively 5. Hypothyroidism 6. Atrial fibrillation 1. Status post washout on 07/28/2018 and antibiotic spacer inserted 2018. DJD seen on the right hip from CT, confirmed on MRI but unable to exclude infection, metastasis. Patient initially afebrile with no leukocytosis. Wound cultures collected during washout grew gram-positive cocci. Infectious disease consulted, recommends changing to Rocephin IV and follow final wound cultures. Tylenol as needed for fever. Morphine IV or oxycodone as needed for severe pain. Weightbearing as per orthopedic recommendations. Will follow physical therapy, orthopedic and infectious disease recommendations. Will follow right hip wound cultures. 2. Low-grade fever this morning and yesterday. Blood cultures prelim negative after 24 hours. Likely secondary to septic arthritis. Tylenol as needed for fever. Will follow ID recommendations. 2. Likely secondary to opiate use for pain management. Docusate is 100 mg by mouth twice a day scheduled and as needed for constipation. Lactulose as needed. 3. Hemoglobin maintaining stable at 10.4 to 9.8 to 8.8 this morning. Likely secondary to dilution. Daily CBC. Transfuse if hemoglobin is less than 7. 4. Stable. Continue Synthroid 75 g by mouth daily. 5. Continue metoprolol 25 mg by mouth twice a day. Not on anticoagulation due to risk of falls. Patient admitted for septic arthritis. Currently on IV Rocephin. Baseline ESR and CRP done today. Discharge to [facility] when cleared by infectious disease.
[2018-08-08] MEDS ORDERED: POTASSIUM CHLORIDE ER 20 MEQ TAB.ER PO STA (10:19)
[2018-08-08 10:51] LABS: Erythrocyte Sedimentation Rate 95 mm/hr (0-15)
--- NOTE | 2018-08-08 13:50 | PN ---
PROGRESS NOTE DATE OF SERVICE: 08/08/2018 REASON FOR FOLLOWUP: Possible right hip septic arthritis. INTERVAL HISTORY: The patient is afebrile. The patient is breathing comfortably and denies having any chest pain or shortness of breath or cough. No abdominal pain. Only worse with right hip area. PHYSICAL EXAMINATION: Blood pressure 114/67, pulse of 95, temperature 98.4. He is 94% on room air. General description is an elderly male, up in the chair in no distress. RESPIRATORY SYSTEM: Unlabored breathing with decreased breath sounds in the bases, no wheeze. HEART: S1, S2. Regular rate and rhythm. ABDOMEN: Soft, no tenderness. LABS: Hemoglobin 8.8, white count 8.1. BUN of 15, creatinine 0.55. SED rate is 95. CRP is 215. DIAGNOSTIC IMPRESSION/PLAN: Patient with right hip pain. At the time of surgical debridement, he was noticed to have purulent drainage with concern for septic arthritis. One of he Gram stain did show a gram-positive cocci with question of possible nutrition variant, Streptococci. Patient's antibiotic currently Rocephin 2 g daily to continue with weekly monitoring of CBC, BMP, SED rate and CRP and close outpatient followup. All his questions and concerns were answered. MMODL / IJN: [id number] /
== END 2018-08-08 13:10 | DRG 481 ==
LOC: EC 11:27 → SUPCPDRO 11:27 → 4MS4W 14:11 → OBSVTOIN 07-23 16:26 → 4SSUR 07-28 13:09 → 4MS4W 07-28 15:56
PROVIDERS: ADMIT Family Medicine; ATTEND Family Medicine
PROC: 3E0U029 Introduction of Other Anti-infective into Joints, Open Approach (ICD-10-PCS; 2018-07-28)
PROC: 0SB90ZX Excision of Right Hip Joint, Open Approach, Diagnostic (ICD-10-PCS; principal; 2018-07-28 12:30)
PROC: 0SH908Z Insertion of Spacer into Right Hip Joint, Open Approach (ICD-10-PCS; 2018-08-05)
PROC: 02HV33Z Insertion of Infusion Device into Superior Vena Cava, Percutaneous Approach (ICD-10-PCS; 2018-08-06)
DX: M00.9 Pyogenic arthritis, unspecified (principal); D62 Acute posthemorrhagic anemia; E87.1 Hypo-osmolality and hyponatremia; B96.89 Other specified bacterial agents as the cause of diseases classified elsewhere; M16.0 Bilateral primary osteoarthritis of hip; E03.9 Hypothyroidism, unspecified; Z79.890 Hormone replacement therapy; Z79.899 Other long term (current) drug therapy; R60.0 Localized edema; N32.81 Overactive bladder; Z86.010 Personal history of colon polyps; Z87.891 Personal history of nicotine dependence; Z85.46 Personal history of malignant neoplasm of prostate; Z99.89 Dependence on other enabling machines and devices; G47.30 Sleep apnea, unspecified; E66.9 Obesity, unspecified; E78.5 Hyperlipidemia, unspecified; I48.91 Unspecified atrial fibrillation; K21.9 Gastro-esophageal reflux disease without esophagitis; K59.03 Drug induced constipation; T40.605A Adverse effect of unspecified narcotics, initial encounter; M51.36 Other intervertebral disc degeneration, lumbar region; Z68.35 Body mass index [BMI] 35.0-35.9, adult; Z80.0 Family history of malignant neoplasm of digestive organs; Z91.81 History of falling; Z98.42 Cataract extraction status, left eye; Z98.41 Cataract extraction status, right eye; Z96.1 Presence of intraocular lens; Z88.8 Allergy status to other drugs, medicaments and biological substances
CPT/HCPCS: 36573; 72170; 72192; 73501; 80048; 80053; 80202; 83735; 85025; 85027; 85652; 86140; 86850; 86900; 86901; 87040; 87070; 87075; 87205; 88300; 88305; 88331; 96372; 99285

== ENCOUNTER → 2018-10-23 | Outpatient (CLI) | payer MEDICARE, BC ==
[2018-10-23 10:59] LABS: Anisocytosis Slight; Basophils % (A) 1 %; Eosinophils # (A) 0.1 k/uL (0-0.7); Eosinophils % (A) 1 %; HCT 42.4 % (39.0-53.0); HGB 13.1 gm/dL (13.0-17.5); Lymphocytes # (A) 1.7 k/uL (1.0-4.8); Lymphocytes % (A) 21 %; MCH 28.3 pg (25.0-35.0); MCHC 30.9 g/dL (31.0-37.0); MCV 91.7 fL (80.0-100.0); Mean Platelet Volume 6.8; Monocytes # (A) 0.4 k/uL (0-1.0); Monocytes % (A) 5 %; Neutrophils # (A) 5.7 k/uL (1.3-7.7); Neutrophils % (A) 72 %; Platelet Count 268 k/uL (150-450); RBC 4.63 m/uL (4.30-5.90); RDW 16.2 % (11.5-15.5)
[2018-10-23 12:37] LABS: Erythrocyte Sedimentation Rate 13 mm/hr (0-15)
[2018-10-23 16:49] LABS: C Reactive Protein <0.4 mg/dL (0.0-0.8); Calcium 9.1 mg/dL (8.7-10.3); Chloride 102 mmol/L (96-109); Glucose 142 mg/dL (70-110); Potassium 4.5 mmol/L (3.5-5.5); Sodium 137 mmol/L (135-145)
== END | disposition home or self-care (01) ==
LOC: LABWHC1 09:59
PROVIDERS: ATTEND Internal Medicine Infectious Disease
DX: M86.10 Other acute osteomyelitis, unspecified site (principal); Z88.8 Allergy status to other drugs, medicaments and biological substances
CPT/HCPCS: 36415; 80048; 85025; 85652; 86140

== ENCOUNTER → 2018-11-11 | Outpatient (CLI) | payer MEDICARE, BC ==
[2018-11-11 11:31] LABS: HCT 42.3 % (39.0-53.0); HGB 13.1 gm/dL (13.0-17.5); MCH 28.3 pg (25.0-35.0); MCHC 30.9 g/dL (31.0-37.0); MCV 91.5 fL (80.0-100.0); Mean Platelet Volume 6.6; Partial Thromboplastin Time 25.8 sec (22.0-30.0); Platelet Count 278 k/uL (150-450); Prothrombin Time 10.2 sec (9.0-12.0); RBC 4.63 m/uL (4.30-5.90); RDW 15.8 % (11.5-15.5); WBC 6.5 k/uL (3.8-10.6)
[2018-11-11 11:51] LABS: Appearance,Urine Clear (Clear); Bilirubin,Urine Negative (Negative); Blood,Urine Trace (Negative); Color,Urine Yellow; Glucose,Urine (UA) Negative (Negative); Ketones,Urine Negative (Negative); Leukocyte Esterase,Urine Negative (Negative); Mucus,Urine Moderate /hpf; Nitrite,Urine Negative (Negative); PH, Urine 5.5 (5.0-8.0); Protein,Urine Trace (Negative); RBC,Urine 1 /hpf (0-5); Specific Gravity,Urine 1.023 (1.001-1.035); Urobilinogen,Urine <2.0 mg/dL (<2.0); WBC,Urine 1 /hpf (0-5)
[2018-11-11 11:52] LABS: ALT 19 U/L (21-72); AST 21 U/L (17-59); Alkaline Phosphatase 67 U/L (38-126); Anion Gap 7 mmol/L; Blood Urea Nitrogen 15 mg/dL (9-20); Calcium 9.3 mg/dL (8.4-10.2); Carbon Dioxide 26 mmol/L (22-30); Chloride 104 mmol/L (98-107); Glucose 91 mg/dL (74-99); Potassium 4.8 mmol/L (3.5-5.1); Sodium 137 mmol/L (137-145); Total Bilirubin 0.7 mg/dL (0.2-1.3); Total Protein 6.6 g/dL (6.3-8.2)
== END ==
LOC: LABPAT 10:14
PROVIDERS: ATTEND Orthopaedic Surgery
DX: Z01.812 Encounter for preprocedural laboratory examination (principal); Z79.01 Long term (current) use of anticoagulants
CPT/HCPCS: 36415; 80053; 81001; 85027; 85610; 85730; 87070

== ENCOUNTER 2018-11-18 08:45 | Inpatient (IN) | payer MEDICARE, BC ==
[2018-11-12 12:47] VITALS: BMI 31.9
[~2018-11-18 08:45] MED LIST: ACETAMINOPHEN TAB 500 MG TAB PO ONE; DEXAMETHASONE SOD PHOSPHATE 10 MG/ML 1 ML VIAL IV ONE; HYDROmorphone 0.5 MG/0.5 ML SYRINGE IVP PRN; MELOXICAM 7.5 MG TAB PO ONE; MIDAZOLAM 2 MG/2 ML VIAL IV PRN; ONDANSETRON 4 MG/2 ML VIAL IVP ONE; TRANEXAMIC ACID 1,000 MG in SODIUM CHLORIDE 0.9% 100 ML IVPB ONE; ceFAZolin IN SWFI 2 GM/20 ML SYRINGE IVP ONE
[2018-11-18] MEDS ORDERED: LACTATED RINGERS 1,000 ML IV ONE ×2 (12:30→14:14)
[2018-11-18] MEDS ORDERED: LIDOCAINE 1% 20 ML VIAL (10MG/ML) FOR IV START INTRADERMA ONE (12:30)
[2018-11-18] MEDS ORDERED: HYDROcodone/APAP 7.5-325MG 1 EACH TAB PO PRN (13:20)
[2018-11-18] MEDS ORDERED: HYDROmorphone 0.5 MG/0.5 ML SYRINGE IVP PRN ×3 (13:20)
[2018-11-18] MEDS ORDERED: MAGNESIUM HYDROXIDE 2,400 MG/10 ML CUP PO PRN (13:20)
[2018-11-18] MEDS ORDERED: DIAZEPAM 5 MG TAB PO PRN (13:20)
[2018-11-18] MEDS ORDERED: NALOXONE 0.4 MG/ML 1 ML VIAL IV PRN (13:20)
[2018-11-18] MEDS ORDERED: ONDANSETRON 4 MG/2 ML VIAL IVP PRN (13:20)
[2018-11-18] MEDS ORDERED: MIDAZOLAM 2 MG/2 ML VIAL ONE (13:29)
[2018-11-18] MEDS ORDERED: PROPOFOL 10 MG/ML 20 ML VIAL IV ONE (13:29)
[2018-11-18] MEDS ORDERED: TRANEXAMIC ACID 1,000 MG/10 ML VIAL ONE (13:29)
[2018-11-18] MEDS ORDERED: LACTATED RINGERS 1,000 ML BAG IV ONE (13:29)
[2018-11-18] MEDS ORDERED: HEPARIN SODIUM,PORCINE 10,000 UNIT/ML 1 ML VIAL ONE (13:29)
[2018-11-18] MEDS ORDERED: fentaNYL (PF) 50 MCG/ML 2 ML AMP ONE (13:29)
[2018-11-18] MEDS ORDERED: SODIUM CHLORIDE 0.9% 100 ML BAG ONE (13:29)
[2018-11-18] MEDS: ROPIVACAINE 246.25 MG, EPINEPHrine 0.5 MG, KETOROLAC 30 MG, cloNIDine HCL/PF 80 MCG, WA... MISCELLANE ONE ×10 (14:13→14:55)
[2018-11-18] MEDS ORDERED: ceFAZolin 3,000 MG in SODIUM CHLORIDE 0.9% IRRIGATIO 3,000 ML IRRIGATION ONE (14:14)
--- NOTE | 2018-11-18 16:32 | P.OP ---
Date of Procedure: 11/18/18 Preoperative Diagnosis: Infection left hip status post stage I revision Postoperative Diagnosis: Infection left hip status post stage I revision Procedure(s) Performed: Stage II revision left total hip arthroplasty with a direct anterior approach Implants: Walters and nephew Polarstem size 4 standard [employer]ters [employer]hew R3, muti-hole acetabular shell, 54 mm [employer]hew reflection 6.5 mm cancellus screw, 20 mm 2, 15 mm x 2 [employer]hew R3, XLPE 20 acetabular liner [employer]hew Oxinium femoral head 36 m, +12 All components were press-fit. The articulation is Oxinium on polyethylene. Anesthesia: spinal Surgeon: Max Brian Administrative Office Assistant #1: Merry Jonas Estimated Blood Loss (ml): 1,500 (577 mL returned with Cell Saver.) Pathology: other (Cultures 2. Frozen section) Condition: stable Disposition: PACU Indications for Procedure: This is a 78-year-old gentleman has a history of a wainwright right hip infection. He was treated with an antibiotic spacer and now is treatment as complete an infection has been eradicated. He now presents for stage II revision with removal of antibiotic spacer and placement of a right total hip arthroplasty. Informed consent was obtained. Operative Findings: The operative findings show no evidence of infection with a frozen section be negative. Description of Procedure: Patient was seen and evaluated in the preoperative area, consent was reviewed, and the surgical site was marked with a skin marker. Patient was then brought to the operating room and given prophylactic antibiotics intravenously. 1 g of Tranexamic acid was also given. A spinal anesthetic was administered by the anesthesia department. The patient was then placed on the [place] table with the bony prominences well-padded. The hip area was then prepped and draped in usual sterile fashion. A universal timeout was then performed, which confirmed the patient's name, surgical site, ALLERGIES, and procedure being performed. Next the incision site was located at 1 cm distal and 1 cm lateral to the anterior superior iliac spine, which was where his prior incision was. The scar was excised.. The skin and subcutaneous tissues were sharply incised. Incision was carefully dissected down to the fascia overlying the tensor fascia valente muscle. This fascia was then incised in line with the incision. Next, using blunt finger dissection, the tensor fascia valente muscle was dissected off its investing fascia. The muscle was then carefully retracted laterally with a cobra retractor over the lateral neck of the femur. Next, the circumflex vessels were identified and cauterized using the AquaMantis device. The anterior hip capsule was then exposed. The capsule was then opened and an inverted T fashion. Clear fluid was then encountered and cultured 2. A frozen section was obtained of this hip synovium which was found to be negative for acute inflammation. Cobra retractors were then placed intracapsularly. The proximal femur was then visualized. The hip antibiotics spacer was then visualized and scar was excised from around the hip.. Small amount of traction was placed with the [place] table. Next, using the [place] table the hip was then gently dislocated. Using an osteotome and a mallet the anabolic spacer was removed without incident.. Attention was then turned to the acetabulum. the acetabulum was exposed and any remaining labrum was excised. Sequential reaming of the acetabulum was performed using fluoroscopic guidance. When the appropriate size was reached, a trial was then placed. The position and fit of the trial was checked with fluoroscopy. The trial was then removed. Then, using fluoroscopic guidance, the final implant was impacted at 20 of anteversion and 40 of abduction, and fully seated in the acetabulum. 4 screws were then placed in the acetabulum. Again fluoroscopy was used to check position of the screws. Next, the liner was then impacted, with a 20 elevated liner located in the anterior superior quadrant. Component locking was confirmed. Attention was then directed to the femur. With the aid of the [place] table, the femur was externally rotated to approximately 130, extended, and abducted under the opposite leg. A side hook was then placed under the proximal femur, and the side hook elevator was used to elevate the proximal femur. Retractors were then placed. A capsular release was performed, as well as a release of the conjoined tendon, which afforded excellent visualization of the proximal femur. Next, a box osteotome was used to lateralize the proximal femur. A lathe hand was then used to locate the femoral canal. Sequential broaching was then performed with appropriate size which afforded excellent fixation in the proximal femur. A trial was then placed with appropriate head and neck, and the hip was gently reduced with the aid of the [place] table. Fluoroscopy was then used to check position of the components, as well as to ensure equal leg lengths. The hip was then gently dislocated and the trials were then removed. Final implants were then impacted and the hip was again reduced. Final fluoroscopic x-rays confirmed that the components were in anatomic position, as well as equal leg lengths. The hip was also taken through range of motion, and found to be stable. The hip was then copiously irrigated with antibiotic solution with pulsatile lavage. The hip was then irrigated with Irrisept solution. The soft tissues were then injected with a ropivacaine solution, which consisted of 246.25 mg of ropivacaine, 0.5 mg of epinephrine, 30 mg of Toradol, 80 g of clonidine, and 48.45 mL of sterile water, for a total of 100 mL of fluid injected. A second dose of 1 g of Tranexamic acid was also given. the fascia was then closed with 2-0 strata fix suture. The subcutaneous tissue was closed with 3-0 Vicryl. The subcuticular tissue was closed with 3-0 strata fix suture. The skin was then closed with Dermabond glue and a sterile silver dressing. The patient was then transferred to the recovery room in stable condition. The human services assistant CHAZ Sandoval was required due to the complexity of surgery, and the need for skilled surgical technology instructor for positioning, draping, exposure, retraction, and closure of the wound.
[2018-11-18] MEDS: LACTATED RINGERS 1,000 ML IV SCH (17:48)
[2018-11-18] MEDS: SODIUM CHLORIDE 0.9% 1,000 ML IV SCH (17:49)
--- NOTE | 2018-11-18 18:21 | XR ---
PROCEDURE: XR Hip Limited RT - 1V DATE AND TIME: 11/18/2018 5:11 PM CLINICAL INDICATION: PHH; Status post hip surgery, assess surgical alignment TECHNIQUE: Department protocol FINDINGS: Right hip prosthesis appears anatomic in its positioning and alignment. Postprocedural cross ges appreciated. No unexpected findings. IMPRESSION: Postop right hip AP view.
[2018-11-18] MEDS: ceFAZolin IN SWFI 2 GM/20 ML SYRINGE IVP SCH (20:36)
[2018-11-18] MEDS: SENNOSIDES-DOCUSATE SODIUM 1 EACH TAB PO SCH (20:36)
[2018-11-18] MEDS: ASPIRIN 325 MG TAB PO SCH (20:36)
[2018-11-19] MEDS: ceFAZolin IN SWFI 2 GM/20 ML SYRINGE IVP SCH (03:41)
[2018-11-19] MEDS: SODIUM CHLORIDE 0.9% 1,000 ML IV SCH ×2 (05:14→20:19)
[2018-11-19] MEDS: LACTATED RINGERS 1,000 ML IV SCH (05:14)
[2018-11-19] MEDS: MELOXICAM 7.5 MG TAB PO SCH (06:41)
[2018-11-19] MEDS: ASPIRIN 325 MG TAB PO SCH ×2 (06:41→20:20)
--- NOTE | 2018-11-19 07:21 | FL ---
EXAMINATION TYPE: FL guidance operating room, XR Hip Limited RT DATE OF EXAM: 11/18/2018 CLINICAL HISTORY: Right hip pain. TECHNIQUE: Fluoroscopy. COMPARISON: None. FINDINGS: Fluoroscopic guidance was provided during pain relief procedure performed by Dr. Brian. A total of 1 minute and 9 seconds of fluoroscopic time was utilized during the procedure and two sp ot images are acquired. Images acquired show right hip arthroplasty. IMPRESSION: As Above.
[2018-11-19 08:05] LABS: Basophils % (A) 0 %; Eosinophils # (A) 0.1 k/uL (0-0.7); Eosinophils % (A) 0 %; HCT 37.6 % (39.0-53.0); Lymphocytes # (A) 1.1 k/uL (1.0-4.8); Lymphocytes % (A) 9 %; MCHC 31.8 g/dL (31.0-37.0); MCV 91.1 fL (80.0-100.0); Mean Platelet Volume 6.6; Monocytes # (A) 0.9 k/uL (0-1.0); Monocytes % (A) 7 %; Neutrophils # (A) 10.1 k/uL (1.3-7.7); Neutrophils % (A) 83 %; Platelet Count 216 k/uL (150-450); RBC 4.13 m/uL (4.30-5.90); RDW 15.6 % (11.5-15.5); WBC 12.3 k/uL (3.8-10.6)
--- NOTE | 2018-11-19 08:55 | P.PN ---
Subjective Progress Note Date: 11/19/18 This is a 78-year-old male who is status post stage II revision right total hip arthroplasty. This is postoperative day #1 and patient is seen and evaluated at bedside with Dr. Max Brian. Patient states that his pain is well controlled today. Patient denies any new complaints. Patient denies any fever/chills, numbness, weakness, tingling, abdominal pain, shortness of breath or chest pain. Objective - Vital Signs Vital signs: Vital Signs Temp 98.4 F 11/19/18 07:23 Pulse 75 11/19/18 07:23 Resp 17 11/19/18 03:25 BP 126/71 11/19/18 07:23 Pulse Ox 96 11/19/18 07:23 Intake & Output 11/18/18 11/19/18 11/19/18 18:59 06:59 18:59 Intake Total 1301 Output Total 1500 Balance -199 Intake: IV 1301 Output: Estimated Blood Loss 1500 Other: Voiding Method Toilet Toilet - Exam Vital signs are stable. Patient is in no acute distress and is alert and oriented 3. Calf is soft and nontender to palpation. Dressing is clean, dry, and intact. Patient has full foot and ankle motion without pain or difficulty. Neurovascular status and circulatory status are intact. - Labs CBC & Chem 7: 11/19/18 07:33 Labs: Abnormal Lab Results - Last 24 Hours (Table) 11/19/18 Range/Units 07:33 WBC 12.3 H (3.8-10.6) k/uL RBC 4.13 L (4.30-5.90) m/uL Hgb 12.0 L (13.0-17.5) gm/dL Hct 37.6 L (39.0-53.0) % RDW 15.6 H (11.5-15.5) % Neutrophils # 10.1 H (1.3-7.7) k/uL Microbiology - Last 24 Hours (Table) 11/18/18 14:21 Gram Stain - Preliminary Hip - Right Wound Culture - Preliminary 11/18/18 14:21 Gram Stain - Preliminary Hip - Right Wound Culture - Preliminary 11/18/18 14:21 Anaerobic Culture - Preliminary Hip - Right 11/18/18 14:21 Anaerobic Culture - Preliminary Hip - Right Assessment and Plan Assessment: Status post stage II revision right total hip arthroplasty. (1) S/P total hip arthroplasty Current Visit: Yes Status: Acute Code(s): Z96.649 - PRESENCE OF UNSPECIFIED ARTIFICIAL HIP JOINT SNOMED Code(s): 861931092720 Plan: Continue routine postop care and pain control. Continue anticoagulation. Weightbearing as tolerated with a walker. Leave dressing in place for 10 days. Appreciate input from medicine. Likely discharge home with homecare tomorrow.
[2018-11-19] MEDS: OXYBUTYNIN XL 5 MG TAB.ER.24 PO SCH (09:01)
[2018-11-19] MEDS: LEVOTHYROXINE 75 MCG TAB PO SCH (09:01)
--- NOTE | 2018-11-19 09:01 | P.CONS ---
History of Present Illness - History of Present Illness this is a pleasant 78 years old male with past medical history of hypothyroid ism, GERD, hyperlipidemia, osteoarthritis,prostate cancer , hyperactive bladder with frequent urination, sleep apnea, coronary artery disease,atrial fibrillation, history of septic arthritis of the right hip and July 2018.he has a right hip prosthesis placed around the same time earlier This year. he was treated with antibiotic spacer and the infection has been resolved as per orthopedic team. .Patient was admitted for infected left hip status post stage I revision. Patient underwent stage II revision of his right total hip arthroplasty,with no evidence of infection seen at the operation room.frozen section was negative for acute inflammation. and the antibiotic spacer was taken out hemodynamically stable and labs showing mild leukocytosis of 12.3 K patient received cefazolin, is currently on gentle hydration of 65 mL/h. Patient is placed on aspirin 325 mg twice a day. Bowel regimen and pain management as per primary team patient has history of atrial fibrillation, is not on anticoagulation as per per patient who follows up with his film flat inspector and PCP and recommended aspirin only. His heart rate is currently controlled Review of Systems CONSTITUTIONAL: No fever, no malaise, no fatigue. HEENT: No recent visual problems or hearing problems. Denied any sore throat. CARDIOVASCULAR: No orthopnea, PND, no palpitations, no syncope. PULMONARY: No shortness of breath, no cough, no hemoptysis. GASTROINTESTINAL: No diarrhea, no nausea, no vomiting, no abdominal pain. Normoactive bowel sounds. NEUROLOGICAL: No headaches, no weakness, no numbness. HEMATOLOGICAL: Denies any bleeding or petechiae. GENITOURINARY: Denies any burning micturition, frequency, or urgency. MUSCULOSKELETAL/RHEUMATOLOGICAL: Denies any joint pain, swelling, or any muscle pain. ENDOCRINE: Denies any polyuria or polydipsia. Past Medical History Past Medical History: Atrial Fibrillation, Cancer, GERD/Reflux, Hyperlipidemia, Osteoarthritis (OA), Prostate Disorder, Sleep Apnea/CPAP/BIPAP, Thyroid Disorder Additional Past Medical History / Comment(s): hyperactive bladder-frequent urination, supposed to use CPAP, hx. prostate cancer 2001, septic arthritis right hip in Jul. History of Any Multi-Drug Resistant Organisms: None Reported Past Surgical History: Heart Catheterization, Orthopedic Surgery, Tonsillectomy Additional Past Surgical History / Comment(s): radioactive seed implants for prostate cancer, cataracts removed-lens implants, bladder control device implanted 07-10-17 and removed 07-18-18, colonoscopy, antibiotic spacer right hip 2018 Past Anesthesia/Blood Transfusion Reactions: No Reported Reaction Additional Past Anesthesia/Blood Transfusion Reaction / Comm: has never had any blood transfusion Past Psychological History: No Psychological Hx Reported Smoking Status: Former smoker Past Alcohol Use History: Daily Additional Past Alcohol Use History / Comment(s): started smoking at age 18(1957) and quit 1961. smoked 1/2 ppd, pt drinks 1-2 glasses of wine per day Past Drug Use History: None Reported - Past Family History Mother Family Medical History: Cancer Additional Family Medical History / Comment(s): from colon cancer at age 60 Father Family Medical History: Liver Disease Additional Family Medical History / Comment(s): from cirrhosis of the liver at age 59 they felt it was d/t farming chemicals 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 Medications and Allergies Home Medications Medication Instructions Recorded Confirmed Type Levothyroxine Sodium [Levoxyl] 75 mcg PO DAILY 07/22/18 11/18/18 History Aspirin 325 mg PO BID 08/28/18 11/18/18 History HYDROcodone/APAP 7.5-325MG [[place] 1 tab PO Q6HR PRN 09/15/18 11/18/18 History 7.5-325] Tolterodine ER [Detrol LA] 4 mg PO DAILY 09/25/18 11/18/18 History Ibuprofen 200 - 400 mg PO Q6H PRN 11/12/18 11/18/18 History Allergies Allergy/AdvReac Type Severity Reaction Status Date / Time Hcwkkgc-Kwh-Oqp Reductase AdvReac Severe Rash/Hives Verified 11/18/18 17:38 Inhibitor Physical Exam Vitals: Vital Signs Temp Pulse Pulse Resp BP BP Pulse Ox 11/19/18 07:23 98.4 F 75 126/71 96 11/19/18 03:25 17 11/19/18 02:21 97.8 F 75 17 133/73 95 11/18/18 23:58 16 11/18/18 20:00 16 11/18/18 19:32 98.2 F 73 17 147/72 97 11/18/18 17:41 84 16 149/79 11/18/18 17:30 80 151/83 11/18/18 17:20 78 16 137/69 97 11/18/18 17:15 86 147/93 11/18/18 17:06 81 16 133/71 100 11/18/18 17:00 89 150/78 11/18/18 16:51 80 16 135/64 100 11/18/18 16:45 84 149/79 11/18/18 16:36 97 F L 86 18 164/80 99 11/18/18 12:25 97.8 F 72 18 154/77 99 Intake and Output 11/18/18 11/19/18 11/19/18 22:59 06:59 14:59 Intake Total 0 Output Total 1500 Balance -1500 Intake: IV 0 Output: Estimated Blood Loss 1500 Other: Voiding Method Toilet Toilet GENERAL: The patient is alert and oriented x3, not in any acute distress. Well developed, well nourished. HEENT: Pupils are round and equally reacting to light. EOMI. No scleral icterus. No conjunctival pallor. Normocephalic, atraumatic. No pharyngeal erythema. No thyromegaly. CARDIOVASCULAR: S1 and S2 present. No murmurs, rubs, or gallops. PULMONARY: Chest is clear to auscultation, no wheezing or crackles. ABDOMEN: Soft, nontender, nondistended, normoactive bowel sounds. No palpable organomegaly. MUSCULOSKELETAL: No joint swelling or deformity. EXTREMITIES: No cyanosis, clubbing, or pedal edema. NEUROLOGICAL: Gross neurological examination did not reveal any focal deficits. SKIN: No rashes. Results CBC & Chem 7: 11/19/18 07:33 Labs: Abnormal Lab Results - Last 24 Hours (Table) 11/19/18 Range/Units 07:33 WBC 12.3 H (3.8-10.6) k/uL RBC 4.13 L (4.30-5.90) m/uL Hgb 12.0 L (13.0-17.5) gm/dL Hct 37.6 L (39.0-53.0) % RDW 15.6 H (11.5-15.5) % Neutrophils # 10.1 H (1.3-7.7) k/uL Microbiology - Last 24 Hours (Table) 11/18/18 14:21 Gram Stain - Preliminary Hip - Right Wound Culture - Preliminary 11/18/18 14:21 Anaerobic Culture - Preliminary Hip - Right 11/18/18 14:21 Anaerobic Culture - Preliminary Hip - Right 11/18/18 14:21 Wound Culture - Preliminary Hip - Right Assessment and Plan Assessment: status post staged 2 revision of his left hiptotal arthroplasty mild leukocytosis recent history of septic arthritis of the right hip Hypothyroidism History of coronary artery disease Symmetry of atrial fibrillation. Heart rate controlled. Not on anticoagulation as per patient History of sleep apnea on CPAP History of prostate cancer History of hyperactive bladder with frequent urination History of GERD Plan: this is a pleasant 78 years old male who presents for revision of his left hip arthroplasty, frozen section was negative for inflammation.patient received doses of antibiotic. Pain management and DVT prophylaxis as per primary team Labs and medication were reviewed.. Continue same treatment. Continue with symptomatic treatment. Resume home medication. Monitor lytes and vitals. DVT and GI prophylaxis. Further recommendations of the clinical course of the p atient thank you for consulting us
[2018-11-19] MEDS: HYDROcodone/APAP 7.5-325MG 1 EACH TAB PO PRN ×3 (11:45→22:39)
[2018-11-19] MEDS: SENNOSIDES-DOCUSATE SODIUM 1 EACH TAB PO SCH (20:20)
[2018-11-20] MEDS: LEVOTHYROXINE 75 MCG TAB PO SCH (05:47)
[2018-11-20] MEDS: LACTATED RINGERS 1,000 ML IV SCH (05:52)
[2018-11-20] MEDS: MELOXICAM 7.5 MG TAB PO SCH (08:05)
[2018-11-20] MEDS: OXYBUTYNIN XL 5 MG TAB.ER.24 PO SCH (08:06)
[2018-11-20] MEDS: ASPIRIN 325 MG TAB PO SCH (08:06)
[2018-11-20] MEDS: HYDROcodone/APAP 7.5-325MG 1 EACH TAB PO PRN (08:06)
[2018-11-20 08:13] VITALS: BP 116/69; PULSE 103; RESP 16; TEMP 100
[2018-11-20] MEDS: SODIUM CHLORIDE 0.9% 1,000 ML IV SCH (09:18)
--- NOTE | 2018-11-20 09:20 | P.DS ---
Providers Date of admission: 11/18/18 12:02 Expected date of discharge: 11/20/18 Attending physician: Max Brian Consults: 11/18/18 13:20 Consult Physician Routine Consulting Provider: Baljit Hua Consult Reason/Comments: medical management and anticoagulation Do you want consulting provider notified?: Yes Primary care physician: Cristo Lyn - Discharge Diagnosis(es) (1) S/P total hip arthroplasty Current Visit: Yes Status: Acute Hospital Course: This is a 78-year-old male who underwent stage I revision right total hip arthroplasty with placement of an antibiotic spacer after [place] right hip infection. The patient presents for evaluation after infection has been treated. After discussion and consideration patient elects to proceed with stage II revision right total hip arthroplasty. The patient is seen preoperatively by and medically cleared for surgery by their primary care physician. Patient is admitted to [facility] on 11/18/2018 for stage II revision right total hip arthroplasty. The procedures performed without complication or sequelae. The patient is doing well postoperatively. Labs and vital signs are stable on day of discharge. On day of discharge patient's hip incision is healing well. There is minimal e rythema. There is no drainage noted at this time. There is minimal soft tissue swelling to the hip and thigh. Patient has full foot and ankle motion without difficulty or pain. Calf is soft and nontender to palpation. Neurovascular status to the right lower extremity is intact. Patient is discharged home in good condition. Opioid start talking form is reviewed and signed at patient bedside. Please see med rec for accurate list of home medications. Plan - Discharge Summary Discharge Rx Participant: No New Discharge Prescriptions: New Aspirin 325 mg PO BID #60 tab HYDROcodone/APAP 7.5-325MG [[place] 7.5-325] 1 - 2 tab PO Q6H PRN #56 tab PRN Reason: Pain Sennosides [Senokot] 1 tab PO BID #60 tablet No Action Levothyroxine Sodium [Levoxyl] 75 mcg PO DAILY Aspirin 325 mg PO BID HYDROcodone/APAP 7.5-325MG [[place] 7.5-325] 1 tab PO Q6HR PRN PRN Reason: Pain Tolterodine ER [Detrol LA] 4 mg PO DAILY Ibuprofen 200 - 400 mg PO Q6H PRN PRN Reason: Pain Discharge Medication List Levothyroxine Sodium [Levoxyl] 75 mcg PO DAILY 07/22/18 [History] Aspirin 325 mg PO BID 08/28/18 [History] HYDROcodone/APAP 7.5-325MG [[place] 7.5-325] 1 tab PO Q6HR PRN 09/15/18 [History] Tolterodine ER [Detrol LA] 4 mg PO DAILY 09/25/18 [History] Ibuprofen 200 - 400 mg PO Q6H PRN 11/12/18 [History] Aspirin 325 mg PO BID #60 tab 11/20/18 [Rx] HYDROcodone/APAP 7.5-325MG [[place] 7.5-325] 1 - 2 tab PO Q6H PRN #56 tab 11/20/18 [Rx] Sennosides [Senokot] 1 tab PO BID #60 tablet 11/20/18 [Rx] Follow up Appointment(s)/Referral(s): [facility], [NON-STAFF] - As Needed Max Brian DO [Doctor of Osteopathic Medicine] - 2 Weeks Activity/Diet/Wound Care/Special Instructions: Weightbearing as tolerated with walker. Leave dressing intact. Dressing may be removed by home care nurse or by patient in 10 days. May shower with dressing on. Please follow-up with [facility] in 2 weeks and call with any questions or concerns, . Discharge Disposition: HOME WITH HOME HEALTH SERVICES
== END 2018-11-20 11:27 | disposition home health service (06) | DRG 468 ==
LOC: 2ORMAIN 12:02 → 4SSUR 17:10
PROVIDERS: ADMIT Orthopaedic Surgery; ATTEND Orthopaedic Surgery
PROC: 0SRB06A Replacement of Left Hip Joint with Oxidized Zirconium on Polyethylene Synthetic Substitute, Uncemented, Open Approach (ICD-10-PCS; 2018-11-18)
PROC: 0SPB08Z Removal of Spacer from Left Hip Joint, Open Approach (ICD-10-PCS; principal; 2018-11-18 13:30)
DX: Z47.32 Aftercare following explantation of hip joint prosthesis (principal); E03.9 Hypothyroidism, unspecified; E78.5 Hyperlipidemia, unspecified; G47.30 Sleep apnea, unspecified; I25.10 Atherosclerotic heart disease of native coronary artery without angina pectoris; I48.91 Unspecified atrial fibrillation; K21.9 Gastro-esophageal reflux disease without esophagitis; N32.81 Overactive bladder; Z96.1 Presence of intraocular lens; Z96.641 Presence of right artificial hip joint; Z79.82 Long term (current) use of aspirin; Z79.890 Hormone replacement therapy; Z80.0 Family history of malignant neoplasm of digestive organs; Z85.46 Personal history of malignant neoplasm of prostate; Z87.891 Personal history of nicotine dependence; Z98.42 Cataract extraction status, left eye; Z98.41 Cataract extraction status, right eye
CPT/HCPCS: 73501; 85025; 86850; 86891; 86900; 86901; 87070; 87075; 87205; 88305; 88331

== ENCOUNTER → 2019-06-18 | Outpatient (CLI) | payer MEDICARE, BC ==
[2019-06-18 14:57] LABS: ALT 15 U/L (4-49); AST 28 U/L (17-59); African American GFR (CKD) >90 (>60 ml/min/1.73 sqM); Albumin 4.5 g/dL (3.5-5.0); Alkaline Phosphatase 89 U/L (38-126); Anion Gap 11 mmol/L; Blood Urea Nitrogen 14 mg/dL (9-20); Calcium 9.5 mg/dL (8.4-10.2); Carbon Dioxide 25 mmol/L (22-30); Chloride 102 mmol/L (98-107); Glucose 88 mg/dL (74-99); Non-African American GFR(CKD) 86 (>60 ml/min/1.73 sqM); Potassium 4.5 mmol/L (3.5-5.1); Sodium 138 mmol/L (137-145); Total Bilirubin 1.1 mg/dL (0.2-1.3); Total Protein 7.3 g/dL (6.3-8.2)
[2019-06-18 15:14] LABS: HCT 46.1 % (39.0-53.0); HGB 14.8 gm/dL (13.0-17.5); MCH 30.7 pg (25.0-35.0); MCHC 32.1 g/dL (31.0-37.0); MCV 95.9 fL (80.0-100.0); Mean Platelet Volume 7.4; Platelet Count 270 k/uL (150-450); RBC 4.81 m/uL (4.30-5.90); RDW 13.9 % (11.5-15.5); WBC 7.5 k/uL (3.8-10.6)
[2019-06-18 15:31] LABS: Appearance,Urine Clear (Clear); Bilirubin,Urine Negative (Negative); Blood,Urine Negative (Negative); Color,Urine Yellow; Glucose,Urine (UA) Negative (Negative); Ketones,Urine 1+ (Negative); Leukocyte Esterase,Urine Negative (Negative); Nitrite,Urine Negative (Negative); Protein,Urine Negative (Negative); Urobilinogen,Urine <2.0 mg/dL (<2.0)
[2019-06-18 15:34] LABS: Prothrombin Time 10.4 sec (9.0-12.0)
== END | disposition home or self-care (01) ==
LOC: LABPAT 13:46
PROVIDERS: ATTEND Orthopaedic Surgery
DX: Z01.812 Encounter for preprocedural laboratory examination (principal); Z51.81 Encounter for therapeutic drug level monitoring
CPT/HCPCS: 80053; 81003; 85027; 85610; 85730; 87070

== ENCOUNTER 2019-06-30 08:04 | Day surgery (SDC) | payer MEDICARE, BC ==
[2019-06-24 14:29] VITALS: BMI 31.9
[~2019-06-30 08:04] MED LIST changes: +GABAPENTIN 300 MG CAP PO ONE; +LIDOCAINE 1% 20 ML VIAL (10MG/ML) FOR IV START INTRADERMA PRN; +ROPIVACAINE 246.25 MG, EPINEPHrine 0.5 MG, KETOROLAC 30 MG, cloNIDine HCL/PF 80 MCG, WA... MISCELLANE ONE; +SCOPOLAMINE 1.5MG/72HR PATCH TRANSDERM ONE; -ceFAZolin IN SWFI 2 GM/20 ML SYRINGE IVP ONE
[2019-06-30] MEDS: LACTATED RINGERS 1,000 ML IV SCH (08:32)
[2019-06-30] MEDS ORDERED: HYDROcodone/APAP 7.5-325MG 1 EACH TAB PO PRN ×2 (08:46)
[2019-06-30] MEDS ORDERED: MAGNESIUM HYDROXIDE 2,400 MG/10 ML CUP PO PRN (08:46)
[2019-06-30] MEDS ORDERED: NALOXONE 0.4 MG/ML 1 ML VIAL IV PRN (08:46)
[2019-06-30] MEDS ORDERED: HYDROmorphone 0.5 MG/0.5 ML SYRINGE IVP PRN ×3 (08:46)
[2019-06-30] MEDS ORDERED: ONDANSETRON 4 MG/2 ML VIAL IVP PRN (08:46)
[2019-06-30] MEDS ORDERED: MELOXICAM 7.5 MG TAB PO SCH (09:00)
[2019-06-30] MEDS ORDERED: fentaNYL (PF) 50 MCG/ML 2 ML AMP ONE (09:13)
[2019-06-30] MEDS ORDERED: SODIUM CHLORIDE 0.9% IRRIG 1,000 ML BTL IRRIGATION ONE (09:13)
[2019-06-30] MEDS ORDERED: diphenhydrAMINE 50 MG/ML 1 ML VIAL ONE (09:13)
[2019-06-30] MEDS ORDERED: SODIUM CHLORIDE 0.9% 100 ML BAG ONE (09:13)
[2019-06-30] MEDS ORDERED: MIDAZOLAM 2 MG/2 ML VIAL ONE (09:13)
[2019-06-30] MEDS ORDERED: TRANEXAMIC ACID 1,000 MG/10 ML VIAL ONE (09:13)
[2019-06-30] MEDS ORDERED: HEPARIN SODIUM,PORCINE 10,000 UNIT/ML 1 ML VIAL ONE (09:13)
[2019-06-30] MEDS ORDERED: PROPOFOL 10 MG/ML 20 ML VIAL IV ONE (09:13)
[2019-06-30] MEDS ORDERED: LACTATED RINGERS 1,000 ML IV ONE (10:43)
--- NOTE | 2019-06-30 10:47 | P.OP ---
Date of Procedure: 06/30/19 Preoperative Diagnosis: Severe osteoarthritis left hip Postoperative Diagnosis: Severe osteoarthritis left hip Procedure(s) Performed: Left total hip arthroplasty with a direct anterior approach Implants: Walters and nephew Polarstem size 3 standard Walters & Nephew R3, 3 hole acetabular shell, 52 mm Walters [employer] Nephew reflection 6.5 mm cancellus screw, 20 mm 2 Walters [employer] Nephew R3, XLPE 20 acetabular liner Walters & Nephew Oxinium femoral head 36 m, +0 All components were press-fit. The articulation is Oxinium on polyethylene. Anesthesia: spinal Surgeon: Max Brian [place] Instructor #1: Merry Jonas Estimated Blood Loss (ml): 350 (141 mL returned with Cell Saver) Pathology: other (Femoral head) Condition: stable Disposition: PACU Indications for Procedure: After failure of conservative treatment we discussed the surgical and nonsurgical treatment options at length. Patient wishes to proceed with a total hip arthroplasty with a direct anterior approach. Complications specific to this procedure were discussed at length, including but not limited to infection, leg length discrepancy, dislocation, and nerve injury. Patient is aware of all these complications and informed consent was obtained Operative Findings: The operative findings are consistent with severe osteoarthritis of the left hip Description of Procedure: Patient was seen and evaluated in the preoperative area, consent was reviewed, and the surgical site was marked with a skin marker. Patient was then brought to the operating room and given prophylactic antibiotics intravenously. 1 g of Tranexamic acid was also given. A spinal anesthetic was administered by the anesthesia department. The patient was then placed on the [place] table with the bony prominences well-padded. The hip area was then prepped and draped in usual sterile fashion. A universal timeout was then performed, which confirmed the patient's name, surgical site, ALLERGIES, and procedure being performed. Next the incision site was located at 1 cm distal and 1 cm lateral to the anterior superior iliac spine. The skin and subcutaneous tissues were sharply incised. Incision was carefully dissected down to the fascia overlying the tensor fascia valente muscle. This fascia was then incised in line with the incision. Next, using blunt finger dissection, the tensor fascia valente muscle was dissected off its investing fascia. The muscle was then carefully retracted laterally with a cobra retractor over the lateral neck of the femur. Next, the circumflex vessels were identified and cauterized using the AquaMantis device. The anterior hip capsule was then exposed. The capsule was then opened and an inverted T fashion. Cobra retractors were then placed intracapsularly. The proximal femur was then vis ualized. The femoral neck was then osteotomized appropriate level above the lesser trochanter. Small amount of traction was placed with the [place] table. A small wedge of bone was then removed from the remaining femoral head. Next, using a corkscrew femoral head was easily removed from the acetabulum. On gross visual inspection, the femoral head had complete loss of articular cartilage in multi ple periarticular osteophytes. Attention was then turned to the acetabulum. the acetabulum was exposed and any remaining labrum was excised. Sequential reaming of the acetabulum was performed using fluoroscopic guidance. When the appropriate size was reached, a trial was then placed. The position and fit of the trial was checked with fluoroscopy. The trial was then removed. Then, using fluoroscopic guidance, the final implant was impacted at 20 of anteversion and 40 of abduction, and fully seated in the acetabulum. 2 screws were then placed in the acetabulum. Again fluoroscopy was used to check position of the screws. Next, the liner was then impacted, with a 20 elevated liner located in the anterior superior quadrant. Component locking was confirmed. Attention was then directed to the femur. With the aid of the [place] table, the femur was externally rotated to approximately 130, extended, and abducted under the opposite leg. A side hook was then placed under the proximal femur, and the side hook elevator was used to elevate the proximal femur. Retractors were then placed. A capsular release was performed, as well as a release of the conjoined tendon, which afforded excellent visualization of the proximal femur. Next, a box osteotome was used to lateralize the proximal femur. A shop hand was then used to locate the femoral canal. Sequential broaching was then performed with appropriate size which afforded excellent fixation in the proximal femur. A trial was then placed with appropriate head and neck, and the hip was gently reduced with the aid of the [place] table. Fluoroscopy was then used to check position of the components, as well as to ensure equal leg lengths. The hip was then gently dislocated and the trials were then removed. Final implants were then impacted and the hip was again reduced. Final fluoroscopic x-rays confirmed that the components were in anatomic position, as well as equal leg lengths. The hip was also taken through range of motion, and found to be stable. The hip was then copiously irrigated with antibiotic solution with pulsatile lavage. The hip was then irrigated with Irrisept solution. The soft tissues were then injected with a ropivacaine solution, which consisted of 246.25 mg of ropivacaine, 0.5 mg of epinephrine, 30 mg of Toradol, 80 g of clonidine, and 48.45 mL of sterile water, for a total of 100 mL of fluid injected. A second dose of 1 g of Tranexamic acid was also given. the fascia was then closed with 2-0 strata fix suture. The subcutaneous tissue was closed with 3-0 Vicryl. The subcuticular tissue was closed with 3-0 strata fix suture. The skin was then closed with Dermabond glue and a sterile silver dressing. The patient was then transferred to the recovery room in stable condi tion. The hotel assistant general manager CHAZ Sandoval was required due to the complexity of surgery, and the need for skilled nursing surgical services director for positioning, draping, exposure, retraction, and closure of the wound.
--- NOTE | 2019-06-30 10:55 | FL ---
EXAMINATION TYPE: FL guidance operating room, XR Hip Limited LT DATE OF EXAM: 06/30/2019 CLINICAL HISTORY: Left hip pain and osteoarthritis. TECHNIQUE: Fluoroscopy. Limited intraoperative views left hip. COMPARISON: None. FINDINGS: Fluoroscopic guidance was provided during left hip replacement procedure performed by Dr. Brian. A total of 32 seconds of fluoroscopic time was utilized during the procedure and two spot fluoroscopic intraoperative images are acquired. Intraoperative images acquired show metallic hardware from total left hip arthroplasty satisfactory i n position on frontal projection. Incidental note of numerous brachytherapy seeds throughout the pros [place] gland overlying pubic symphysis. IMPRESSION: As Above.
--- NOTE | 2019-06-30 11:33 | XR ---
EXAMINATION TYPE: XR Hip Limited LT DATE OF EXAM: 06/30/2019 CLINICAL HISTORY: Left hip pain and osteoarthritis. TECHNIQUE: Single AP portable view of left hip is obtained immediately postoperatively. COMPARISON: None. FINDINGS: Metallic hardware from total left hip arthroplasty is seen and appears satisfactory in alig nment and position on frontal projection. There is evidence of recent surgery with subcutaneous gas noted laterally and superiorly. Numerous brachytherapy seeds in prostate gland overlie left pubic [place] ne near symphysis. IMPRESSION: Metallic hardware from left hip arthroplasty is satisfactory in position.
[2019-06-30] MEDS: SODIUM CHLORIDE 0.9% 1,000 ML IV SCH ×2 (12:45→23:19)
[2019-06-30] MEDS: ASPIRIN 325 MG TAB PO SCH (20:54)
[2019-06-30] MEDS ORDERED: oxyCODONE-APAP 10-325MG 1 EACH TAB PO PRN (20:57)
[2019-06-30] MEDS ORDERED: SENNOSIDES-DOCUSATE SODIUM 1 EACH TAB PO SCH (21:00)
--- NOTE | 2019-06-30 22:08 | P.CONS ---
History of Present Illness - Reason for Consult Consult date: 06/30/19 Medical management - Chief Complaint Admitted for left total hip arthroplasty - History of Present Illness Patient is a 79-year-old male with a known history of atrial fibrillation on aspirin for anticoagulation, obstructive sleep apnea on CPAP at home, osteoarthritis, BPH and history of bladder control device, removed about a year ago, coronary artery disease with known history of PCI and hypothyroidism, previous history of smoking was admitted to the hospital for left total hip arthroplasty. Patient tolerated the procedure very well. Patient does have a history of right hip arthroplasty previously. Denied any complaints of worsening pain. No chest pain or shortness of breath. No nausea vomiting or abdominal pain. No headache or dizziness or lightheadedness. Review of Systems Constitutional: Patient denies any fever or chills . No generalized weakness or weight loss. Abdomen: Patient denied nausea vomiting and diarrhea and abdominal pain. Cardiovascular: Patient denies any chest pain or short of breath no palpitations. Respiratory: patient denied any cough is from production. No shortness of breath Neurologic: Patient denied any numbness or tingling headache. Musculoskeletal: Patient denies any complaints of joint swelling or deformity. Skin: Negative Psychiatric: Negative Endocrine: No heat or cold intolerance. No recent weight gain. Genitourinary: No dysuria or hematuria. All other 14 point ROS negative except the above Past Medical History Past Medical History: Atrial Fibrillation, Cancer, GERD/Reflux, Hyperlipidemia, Osteoarthritis (OA), Prostate Disorder, Rheumatoid Arthritis (RA), Sleep Apnea/CPAP/BIPAP, Thyroid Disorder Additional Past Medical History / Comment(s): uses CPAP, Hypothyroid, hyperactive bladder, hx. prostate cancer 2001, septic arthritis right hip 2018 History of Any Multi-Drug Resistant Organisms: None Reported Past Surgical History: Heart Catheterization, Joint Replacement, Tonsillectomy Additional Past Surgical History / Comment(s): radioactive seed implants for prostate cancer, cataracts removed-lens implants, bladder control device implanted 07-10-17 and removed 07-18-18, colonoscopy, right hip replaced after revision & spacers for infection November 2018 Past Anesthesia/Blood Transfusion Reactions: No Reported Reaction Additional Past Anesthesia/Blood Transfusion Reaction / Comm: has never had any blood transfusion Past Psychological History: No Psychological Hx Reported Smoking Status: Former smoker Past Alcohol Use History: Daily Additional Past Alcohol Use History / Comment(s): started smoking at age 18(1957) and quit 1961. smoked 1/2 ppd, pt drinks 1-2 glasses of wine per day Past Drug Use History: None Reported Additional Drug Use History / Comment(s): CBD oil @[facility] - Past Family History Mother Family Medical History: Cancer Additional Family Medical History / Comment(s): from colon cancer at age 60 Father Family Medical History: Liver Disease Additional Family Medical History / Comment(s): from cirrhosis of the liver at age 59 they felt it was d/t farming chemicals 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 Medications and Allergies Home Medications Medication Instructions Recorded Confirmed Type Levothyroxine Sodium [Levoxyl] 75 mcg PO DAILY 07/22/18 06/30/19 History Aspirin 325 mg PO BID #60 tab 11/20/18 06/30/19 Rx Cannabidiol (Cbd) Extract 0 mg PO DAILY PRN 06/24/19 06/30/19 History [Epidiolex] Fluticasone Nasal [employer] [Flonase 2 spr EA NOSTRIL HS 06/24/19 06/30/19 History Nasal [employer]] oxyCODONE-APAP 10-325MG [Percocet 1 tab PO Q8HR PRN 06/24/19 06/30/19 History 10-325 mg] Aspirin 325 mg PO BID #60 tab 06/30/19 Rx Sennosides [Senokot] 2 tab PO DAILY PRN #60 tablet 06/30/19 Rx Allergies Allergy/AdvReac Type Severity Reaction Status Date / Time Uafyzqk-Veu-Qdl Reductase AdvReac Severe Rash/Hives Verified 06/30/19 08:30 Inhibitor Physical Exam Vitals: Vital Signs Temp Pulse Resp BP Pulse Ox 06/30/19 19:56 98.9 F 74 17 130/76 96 06/30/19 13:45 81 128/66 94 L 06/30/19 13:30 84 132/72 97 06/30/19 13:15 97 143/67 97 06/30/19 12:45 76 137/75 97 06/30/19 12:30 81 136/87 06/30/19 12:15 77 146/91 95 06/30/19 12:00 74 142/85 94 L 06/30/19 11:45 97.6 F 71 16 122/75 95 06/30/19 11:22 73 16 132/77 94 L 06/30/19 11:07 81 16 136/76 95 06/30/19 10:52 98.1 F 81 16 145/76 96 06/30/19 08:26 98.3 F 87 16 158/87 98 Intake and Output 06/30/19 06/30/19 06/30/19 06:59 14:59 22:59 Intake Total 1150 Output Total 350 400 Balance 800 -400 Intake: IV 1150 Output: Urine 400 Estimated Blood Loss 350 Other: Voiding Method Toilet # Voids 1 1 Weight 95.254 kg PHYSICAL EXAMINATION: Patient is lying in the bed comfortably, no acute distress, awake alert and oriented.. HEENT: Normocephalic. Neck is supple. Pupils reactive. Nostrils clear. Oral cavity is moist. Ears reveal no drainage. Neck reveals no JVD, carotid bruits, or thyromegaly. CHEST EXAMINATION: Trachea is central. Symmetrical expansion. Lung dejesus clear to auscultation and percussion. CARDIAC: Normal S1, S2 with no gallops. No murmurs ABDOMEN: Soft. Bowel sounds normal. No organomegaly. No abdominal bruits. Extremities: reveal no edema. No clubbing or cyanosis Neurologically awake, alert, oriented x3 with well-coordinated movements. No focal deficits noted Skin: No rash or skin lesions. Psychiatric: Coperative. Nonsuicidal Musculoskeletal: No joint swelling or deformity. Normal range of motion. Left hip surgical site intact. Assessment and Plan Assessment: Left hip total arthroplasty postoperative day 0 History of paroxysmal A. fib defibrillation currently on aspirin for anticoagulation GERD Hyperlipidemia Osteoarthritis Hyperactive bladder. Was on bladder control device. Removed one year ago History of prostate cancer in 2001 status post radioactive seed implants. Obstructive sleep apnea on CPAP at home Rheumatoid arthritis Hypothyroidism Previous history of smoking Daily alcohol use 1-2 glasses of wine DVT prophylaxis Plan: Patient will be continued on pain management, bowel regimen, incentive spirometry and encourage ambulation. Currently on aspirin twice daily for DVT prophylaxis. Continue with home medications and will follow up closely. Further recommendations based on the clinical course. Monitor for any alcohol withdrawal symptoms. We will continue to follow with you. Thank you for your consult. Time with Patient: Greater than 30
[2019-07-01] MEDS: LACTATED RINGERS 1,000 ML IV SCH (00:29)
[2019-07-01 07:01] LABS: Basophils % (A) 0 %; Eosinophils % (A) 0 %; HCT 40.5 % (39.0-53.0); HGB 12.7 gm/dL (13.0-17.5); Lymphocytes # (A) 1.3 k/uL (1.0-4.8); Lymphocytes % (A) 12 %; MCH 30.2 pg (25.0-35.0); MCHC 31.4 g/dL (31.0-37.0); MCV 96.2 fL (80.0-100.0); Mean Platelet Volume 7.4; Monocytes % (A) 9 %; Neutrophils # (A) 8.2 k/uL (1.3-7.7); Neutrophils % (A) 77 %; Platelet Count 206 k/uL (150-450); RBC 4.21 m/uL (4.30-5.90); RDW 13.5 % (11.5-15.5); WBC 10.7 k/uL (3.8-10.6)
[2019-07-01 07:12] VITALS: BP 121/67; PULSE 71; RESP 16; TEMP 98.3
[2019-07-01] MEDS: ASPIRIN 325 MG TAB PO SCH (08:25)
[2019-07-01] MEDS ORDERED: MELOXICAM 7.5 MG TAB PO SCH (09:00)
--- NOTE | 2019-07-01 09:26 | P.DS ---
Providers Expected date of discharge: 07/01/19 Attending physician: Max Brian Consults: 06/30/19 08:46 Consult Physician Routine Consulting Provider: Baljit Hua Consult Reason/Comments: medical management Do you want consulting provider notified?: Yes Primary care physician: Cristo Lyn - Discharge Diagnosis(es) (1) Osteoarthritis of left hip Current Visit: Yes Status: Acute (2) Status post total hip replacement, left Current Visit: Yes Status: Acute (3) Inability to ambulate due to hip Current Visit: No Status: Acute Hospital Course: This is an 79-year-old male with known history of degenerative arthritis of the left hip. The patient presents for evaluation. After discussion and consideration patient elects to proceed with total hip arthroplasty. The patient is seen preoperatively by his primary care physician and cleared for surgery. Patient is admitted to [facility] on 06/30/2019 for total hip arthroplasty. The procedures performed without complication or sequelae. The patient is doing well postoperatively. Labs and vital signs are stable on day of discharge. On day of discharge patient's hip incision is healing well. There is minimal er ythema. There is no drainage noted at this time. There is minimal soft tissue swelling to the hip and thigh. Patient has full foot and ankle motion without difficulty or pain. Neurovascular status to the left lower extremity is intact. Patient is discharged to home in good condition. Please see med rec for accurate list of home medications. Plan - Discharge Summary Discharge Rx Participant: Yes New Discharge Prescriptions: New Aspirin 325 mg PO BID #60 tab Sennosides [Senokot] 2 tab PO DAILY PRN #60 tablet PRN Reason: Constipation HYDROcodone/APAP 10-325MG [[place] 10-325] 1 - 2 tab PO Q4-6H PRN #50 tab PRN Reason: Pain No Action Levothyroxine Sodium [Levoxyl] 75 mcg PO DAILY Aspirin 325 mg PO BID #60 tab oxyCODONE-APAP 10-325MG [Percocet 10-325 mg] 1 tab PO Q8HR PRN PRN Reason: Pain Fluticasone Nasal [place] [Flonase Nasal [place]] 2 spr EA NOSTRIL HS Cannabidiol (Cbd) Extract [Epidiolex] 0 mg PO DAILY PRN PRN Reason: Pain Discharge Medication List Levothyroxine Sodium [Levoxyl] 75 mcg PO DAILY 07/22/18 [History] Aspirin 325 mg PO BID #60 tab 11/20/18 [Rx] Cannabidiol (Cbd) Extract [Epidiolex] 0 mg PO DAILY PRN 06/24/19 [History] Fluticasone Nasal [place] [Flonase Nasal [place]] 2 spr EA NOSTRIL HS 06/24/19 [History] oxyCODONE-APAP 10-325MG [Percocet 10-325 mg] 1 tab PO Q8HR PRN 06/24/19 [History] Aspirin 325 mg PO BID #60 tab 06/30/19 [Rx] Sennosides [Senokot] 2 tab PO DAILY PRN #60 tablet 06/30/19 [Rx] HYDROcodone/APAP 10-325MG [[place] 10-325] 1 - 2 tab PO Q4-6H PRN #50 tab 07/01/19 [Rx] Follow up Appointment(s)/Referral(s): Cristo Lyn DO [Primary Care Provider] - 1 Week Max Brian DO [Doctor of Osteopathic Medicine] - 07/15/19 9:45 am Activity/Diet/Wound Care/Special Instructions: Weightbearing as tolerated with walker. Leave dressing intact. Dressing may be removed by home care nurse or by patient in 10 days. May shower with dressing on. Recommend use of compression stockings daily for at least 2 weeks during the day to help prevent swelling and blood clots. May remove at night before sleeping. Please follow-up with [facility] in 2 weeks and call with any questions or concerns, .
[2019-07-01 09:44] LABS: African American GFR (CKD) >90 (>60 ml/min/1.73 sqM); Anion Gap 5 mmol/L; Blood Urea Nitrogen 17 mg/dL (9-20); Calcium 8.4 mg/dL (8.4-10.2); Carbon Dioxide 26 mmol/L (22-30); Chloride 106 mmol/L (98-107); Glucose 99 mg/dL (74-99); Non-African American GFR(CKD) 87 (>60 ml/min/1.73 sqM); Potassium 4.3 mmol/L (3.5-5.1); Sodium 137 mmol/L (137-145)
--- NOTE | 2019-07-01 12:39 | P.PN ---
Subjective Progress Note Date: 07/01/19 Principal diagnosis: Patient is a 79-year-old male with a known history of atrial fibrillation on aspirin for anticoagulation, obstructive sleep apnea on CPAP at home, osteoarthritis, BPH and history of bladder control device, removed about a year ago, coronary artery disease with known history of PCI and hypothyroidism, previous history of smoking was admitted to the hospital for left total hip arthroplasty. Patient tolerated the procedure very well. Patient does have a history of right hip arthroplasty previously. Denied any complaints of worsening pain. No chest pain or shortness of breath. No nausea vomiting or abdominal pain. No headache or dizziness or lighthea dedness. 07/01/2019 Patient is sitting up in the chair and appears to be in no acute distress. No acute overnight issues. Patient underwent total left hip arthroplasty with Dr. Brian and is doing well. Patient is scheduled to go home today with home care for physical therapy. Patient states that last night he was not aware that he urinated the bed as he didn't feel the urge to go but woke up in his bed was wet. Soon after patient continued to urinate in the urinal with no issues. Patient's surgical dressing of the left hip is dry and intact with no increasing redness or swelling noted to the site. Patient is up and walking with a walker and tolerating well. Patient denies any chest pain, shortness of breath, or palpitations. Patient is afebrile. Patient denies any nausea or vomiting and has been tolerating diet. Objective - Vital Signs Vital signs: Vital Signs Temp 98.3 F 07/01/19 07:00 Pulse 71 07/01/19 07:00 Resp 16 07/01/19 07:00 BP 121/67 07/01/19 07:00 Pulse Ox 96 07/01/19 09:42 Intake & Output 06/30/19 07/01/19 07/01/19 18:59 06:59 18:59 Intake Total 1150 560 Output Total 350 400 Balance 800 160 Weight 95.254 kg Intake: IV 1150 Intake, IV Titration 560 Amount Sodium Chloride 0.9% 1, 560 000 ml @ 70 mls/hr IV . [id number] KEVIN Rx#:[id number] Output: Urine 400 Estimated Blood Loss 350 Other: Voiding Method Toilet # Voids 1 1 - Exam Patient is sitting in the chair comfortably, no acute distress, awake alert and oriented.. HEENT: Normocephalic. Neck is supple. Pupils reactive. Nostrils clear. Oral cavity is moist. Ears reveal no drainage. Neck reveals no JVD, carotid bruits, or thyromegaly. CHEST EXAMINATION: Trachea is central. Symmetrical expansion. Lung dejesus clear to auscultation and percussion. CARDIAC: Normal S1, S2 with no gallops. No murmurs ABDOMEN: Soft. Bowel sounds normal. No organomegaly. No abdominal bruits. Extremities: reveal no edema. No clubbing or cyanosis Neurologically awake, alert, oriented x3 with well-coordinated movements. No focal deficits noted Skin: No rash or skin lesions. Psychiatric: Cooperative. Non-suicidal Musculoskeletal: No joint swelling or deformity. Normal range of motion. Left hip surgical site dressing is dry and intact. - Labs CBC & Chem 7: 07/01/19 06:31 07/01/19 06:31 Labs: Abnormal Lab Results - Last 24 Hours (Table) 07/01/19 Range/Units 06:31 WBC 10.7 H (3.8-10.6) k/uL RBC 4.21 L (4.30-5.90) m/uL Hgb 12.7 L (13.0-17.5) gm/dL Neutrophils # 8.2 H (1.3-7.7) k/uL Assessment and Plan Assessment: Left hip total arthroplasty postoperative day 1 History of paroxysmal A. fib defibrillation currently on aspirin for anticoa gulation GERD Hyperlipidemia Osteoarthritis Hyperactive bladder. Was on bladder control device. Removed one year ago History of prostate cancer in 2001 status post radioactive seed implants. Obstructive sleep apnea on CPAP at home Rheumatoid arthritis Hypothyroidism Previous history of smoking Daily alcohol use 1-2 glasses of wine DVT prophylaxis Plan: Patient will be continued on pain management, bowel regimen, incentive spirometry and encourage ambulation. Currently on aspirin twice daily for DVT prophylaxis. Continue with home medications and will follow up closely. Further recommendat ions based on the clinical course. We will continue to follow with you. Patient is being discharged today by primary service with home care and physical therapy. Thank you for your consult.
== END 2019-07-01 12:21 | disposition home health service (06) ==
LOC: OR 08:04 → EDSTATUS 09:55 → 4SSUR 10:43 → OR 07-01 12:21
PROVIDERS: ATTEND Orthopaedic Surgery
DX: M16.12 Unilateral primary osteoarthritis, left hip (principal); I25.10 Atherosclerotic heart disease of native coronary artery without angina pectoris; I10 Essential (primary) hypertension; I48.0 Paroxysmal atrial fibrillation; E78.00 Pure hypercholesterolemia, unspecified; E78.5 Hyperlipidemia, unspecified; E03.9 Hypothyroidism, unspecified; G47.33 Obstructive sleep apnea (adult) (pediatric); J45.909 Unspecified asthma, uncomplicated; N40.0 Benign prostatic hyperplasia without lower urinary tract symptoms; M06.9 Rheumatoid arthritis, unspecified; K21.9 Gastro-esophageal reflux disease without esophagitis; Z79.890 Hormone replacement therapy; Z79.82 Long term (current) use of aspirin; Z79.899 Other long term (current) drug therapy; Z85.46 Personal history of malignant neoplasm of prostate; Z96.641 Presence of right artificial hip joint; Z98.49 Cataract extraction status, unspecified eye; Z97.3 Presence of spectacles and contact lenses; Z88.8 Allergy status to other drugs, medicaments and biological substances; Z98.890 Other specified postprocedural states; Z87.891 Personal history of nicotine dependence; Z90.89 Acquired absence of other organs; Z96.1 Presence of intraocular lens; Z99.89 Dependence on other enabling machines and devices; Z92.3 Personal history of irradiation; Z82.49 Family history of ischemic heart disease and other diseases of the circulatory system; Z80.0 Family history of malignant neoplasm of digestive organs; Z83.79 Family history of other diseases of the digestive system
CPT/HCPCS: 94760; 97116; 97161; 97535; 97165; 86891; 88305; 80048; 85025; 88311; 73501 ×2; 27130; C1776; J2250; J0171; J1200; J1644; J0690; J3010; J1885; J2795; J2704; J0735; 86850; 86900; 86901

== ENCOUNTER 2020-04-16 09:37 | Inpatient (IN) | payer MEDICARE, BC ==
[2020-04-16] MEDS ORDERED: ACETAMINOPHEN TAB 500 MG TAB PO STA (09:57)
[2020-04-16] MEDS ORDERED: SODIUM CHLORIDE 0.9% 1,000 ML IV ONE (09:59)
--- NOTE | 2020-04-16 10:24 | ED ---
Fever HPI - General Source: patient, RN notes reviewed Mode of arrival: ambulatory Limitations: no limitations <Max Mcmullen - Last Filed: 04/16/20 12:00> <Faizan Arias - Last Filed: 04/16/20 12:28> - General Chief Complaint: Fever Stated Complaint: Fever,Confusion Time Seen by Provider: 04/16/20 09:46 - History of Present Illness Initial Comments: 79-year-old male presents emergency Department with chief complaint of generalized weakness, fever and confusion. states that he noticed states her recliner but was not sitting in the recliner when she awoke this morning. Patient has noticed have increasing left leg redness with fever. He denies any headache or stated that he seemed to be slightly confused yesterday. He denies any chest pain or shortness of breath. Patient's had no recent acetaminophen. Patient does have a history of A. fib but only takes aspirin. Denies ear pain, sore throat or neck pain, back pain (Max Mcmullen) - Related Data Home Medications Medication Instructions Recorded Confirmed Levothyroxine Sodium [Levoxyl] 75 mcg PO DAILY 07/22/18 06/30/19 Cannabidiol (Cbd) [Epidiolex] 0 mg PO DAILY PRN 06/24/19 06/30/19 Fluticasone Nasal [place] [Flonase 2 spr EA NOSTRIL HS 06/24/19 06/30/19 Nasal [place]] Previous Rx's Medication Instructions Recorded Aspirin 325 mg PO BID #60 tab 11/20/18 Aspirin 325 mg PO BID #60 tab 06/30/19 Sennosides [Senokot] 2 tab PO DAILY PRN #60 tablet 06/30/19 HYDROcodone/APAP 10-325MG [[place] 1 - 2 tab PO Q4-6H PRN #50 tab 07/01/19 10-325] Allergies Allergy/AdvReac Type Severity Reaction Status Date / Time Jeqebvz-Vtz-Tqx Reductase AdvReac Severe Rash/Hives Verified 04/16/20 09:43 Inhibitor Review of Systems ROS Other: All systems not noted in ROS Statement are negative. <Max Mcmullen - Last Filed: 04/16/20 12:00> ROS Other: All systems not noted in ROS Statement are negative. <Faizan Arias - Last Filed: 04/16/20 12:28> ROS Statement: Those systems with pertinent positive or pertinent negative responses have been documented in the HPI. Past Medical History Past Medical History: Atrial Fibrillation, Cancer, GERD/Reflux, Hyperlipidemia, Osteoarthritis (OA), Prostate Disorder, Sleep Apnea/CPAP/BIPAP, Thyroid Disorder Additional Past Medical History / Comment(s): Hypothyroid, hyperactive bladder, A. fib. SEPTIC ARTHRITIS. History of Any Multi-Drug Resistant Organisms: None Reported Past Surgical History: Heart Catheterization, Tonsillectomy Additional Past Surgical History / Comment(s): radioactive seed implants for prostate cancer, cataracts removed-lens implants, bladder control device implanted 07-10-17 and removed 07-18-18, colonoscopy/polypectomy-benign Past Anesthesia/Blood Transfusion Reactions: No Reported Reaction Additional Past Anesthesia/Blood Transfusion Reaction / Comment(s): has never had any blood transfusion Past Psychological History: No Psychological Hx Reported Past Alcohol Use History: Daily Past Drug Use History: None Reported - Past Family History Mother Family Medical History: Cancer Additional Family Medical History / Comment(s): from colon cancer at age 60 Father Family Medical History: Liver Disease Additional Family Medical History / Comment(s): from cirrhosis of the liver at age 59 they felt it was d/t farming chemicals 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 <Max Mcmullen M - Last Filed: 04/16/20 12:00> General Exam Limitations: no limitations General appearance: alert, in no apparent distress Head exam: Present: atraumatic, normocephalic, normal inspection Eye exam: Present: normal appearance, PERRL, EOMI. Absent: scleral icterus, conjunctival injection, periorbital swelling ENT exam: Present: normal exam, normal oropharynx, mucous membranes moist Neck exam: Present: normal inspection, full ROM. Absent: tenderness, meningismus, lymphadenopathy Respiratory exam: Present: normal lung sounds bilaterally. Absent: respiratory distress, wheezes, rales, rhonchi, stridor Cardiovascular Exam: Present: regular rate, normal rhythm, normal heart sounds. Absent: systolic murmur, diastolic murmur, rubs, gallop, clicks GI/Abdominal exam: Present: soft, normal bowel sounds. Absent: distended, tenderness, guarding, rebound, rigid Extremities exam: Present: other (Left lower shunted there is erythema the distal to mid tib-fib Region, left hip there is old surgical scar noted along with erythema, no pain with range of motion of the left hip pulses are equal bilaterally lower extremities) Neurological exam: Present: alert, oriented X3, CN II-XII intact, reflexes normal. Absent: motor sensory deficit Skin exam: Present: warm, dry, intact, normal color. Absent: rash <Max Mcmullen - Last Filed: 04/16/20 12:00> Course <Faizan Arias - Last Filed: 04/16/20 12:28> Vital Signs 04/16/20 04/16/20 04/16/20 09:38 11:31 12:01 Temperature 101.3 F H 101.3 F H 99.2 F Pulse Rate 78 78 80 Respiratory 18 18 18 Rate Blood Pressure 125/74 125/74 95/60 O2 Sat by Pulse 97 97 96 Oximetry - Reevaluation(s) Reevaluation #1: 04/16/20 12:28 PA supervision: I proceeded evaluate this case patient does present with co mplaints of pain to his right leg and does demonstrate evidence of cellulitis. Patient will be admitted for IV antibiotics. The case was discussed with Dr. Murray (Faizan Arias) Medical Decision Making - Lab Data Result diagrams: 04/16/20 10:13 04/16/20 10:13 <Max Mcmullen - Last Filed: 04/16/20 12:00> - Lab Data Result diagrams: 04/16/20 10:13 04/16/20 10:13 <Faizan Arias - Last Filed: 04/16/20 12:28> - Medical Decision Making 7-year-old male presented for fever, mild confusion, infection the left leg patient has no evidence of DVT. Patient will be admitted for cellulitis, further evaluation and treatment. (Max Mcmullen) - Lab Data Lab Results 04/16/20 04/16/20 04/16/20 Range/Units 10:13 10:13 10:13 WBC 14.3 H (3.8-10.6) k/uL RBC 4.61 (4.30-5.90) m/uL Hgb 14.9 (13.0-17.5) gm/dL Hct 46.2 (39.0-53.0) % MCV 100.1 H (80.0-100.0) fL MCH 32.2 (25.0-35.0) pg MCHC 32.2 (31.0-37.0) g/dL RDW 13.5 (11.5-15.5) % Plt Count 136 L (150-450) k/uL Neutrophils % 88 % Lymphocytes % 7 % Monocytes % 3 % Eosinophils % 1 % Basophils % 1 % Neutrophils # 12.5 H (1.3-7.7) k/uL Lymphocytes # 1.0 (1.0-4.8) k/uL Monocytes # 0.4 (0-1.0) k/uL Eosinophils # 0.1 (0-0.7) k/uL Basophils # 0.1 (0-0.2) k/uL Manual Slide Review Performed PT 12.2 H (9.0-12.0) sec INR 1.2 H (<1.2) APTT 28.8 (22.0-30.0) sec Sodium 133 L (137-145) mmol/L Potassium 4.6 (3.5-5.1) mmol/L Chloride 99 (98-107) mmol/L Carbon Dioxide 25 (22-30) mmol/L Anion Gap 9 mmol/L BUN 31 H (9-20) mg/dL Creatinine 1.12 (0.66-1.25) mg/dL Est GFR (CKD-EPI)AfAm 72 (>60 ml/min/1.73 sqM) Est GFR (CKD-EPI)NonAf 62 (>60 ml/min/1.73 sqM) Glucose 131 H (74-99) mg/dL Plasma Lactic Acid Franky (0.7-2.0) mmol/L Calcium 8.7 (8.4-10.2) mg/dL Magnesium 2.0 (1.6-2.3) mg/dL Total Bilirubin 2.6 H (0.2-1.3) mg/dL AST 40 (17-59) U/L ALT 21 (4-49) U/L Alkaline Phosphatase 54 (38-126) U/L Creatine Kinase 241 H (55-170) U/L Troponin I (0.000-0.034) ng/mL Total Protein 6.9 (6.3-8.2) g/dL Albumin 4.2 (3.5-5.0) g/dL 04/16/20 04/16/20 Range/Units 10:13 10:13 WBC (3.8-10.6) k/uL RBC (4.30-5.90) m/uL Hgb (13.0-17.5) gm/dL Hct (39.0-53.0) % MCV (80.0-100.0) fL MCH (25.0-35.0) pg MCHC (31.0-37.0) g/dL RDW (11.5-15.5) % Plt Count (150-450) k/uL Neutrophils % % Lymphocytes % % Monocytes % % Eosinophils % % Basophils % % Neutrophils # (1.3-7.7) k/uL Lymphocytes # (1.0-4.8) k/uL Monocytes # (0-1.0) k/uL Eosinophils # (0-0.7) k/uL Basophils # (0-0.2) k/uL Manual Slide Review PT (9.0-12.0) sec INR (<1.2) APTT (22.0-30.0) sec Sodium (137-145) mmol/L Potassium (3.5-5.1) mmol/L Chloride (98-107) mmol/L Carbon Dioxide (22-30) mmol/L Anion Gap mmol/L BUN (9-20) mg/dL Creatinine (0.66-1.25) mg/dL Est GFR (CKD-EPI)AfAm (>60 ml/min/1.73 sqM) Est GFR (CKD-EPI)NonAf (>60 ml/min/1.73 sqM) Glucose (74-99) mg/dL Plasma Lactic Acid Franky 2.5 H* (0.7-2.0) mmol/L Calcium (8.4-10.2) mg/dL Magnesium (1.6-2.3) mg/dL Total Bilirubin (0.2-1.3) mg/dL AST (17-59) U/L ALT (4-49) U/L Alkaline Phosphatase (38-126) U/L Creatine Kinase (55-170) U/L Troponin I 0.016 (0.000-0.034) ng/mL Total Protein (6.3-8.2) g/dL Albumin (3.5-5.0) g/dL Disposition <Max Mcmullen - Last Filed: 04/16/20 12:00> <Faizan Arias - Last Filed: 04/16/20 12:28> Clinical Impression: Fever, Left leg cellulitis Disposition: ADMITTED IP TO THIS HOSP Condition: Fair Referrals: Cristo Lyn DO [Primary Care Provider] - 1-2 days
[2020-04-16 10:27] LABS: Basophils # (A) 0.1 k/uL (0-0.2); Basophils % (A) 1 %; Eosinophils # (A) 0.1 k/uL (0-0.7); Eosinophils % (A) 1 %; HCT 46.2 % (39.0-53.0); HGB 14.9 gm/dL (13.0-17.5); Lymphocytes % (A) 7 %; MCH 32.2 pg (25.0-35.0); MCHC 32.2 g/dL (31.0-37.0); MCV 100.1 fL (80.0-100.0); Monocytes # (A) 0.4 k/uL (0-1.0); Monocytes % (A) 3 %; Neutrophils # (A) 12.5 k/uL (1.3-7.7); Neutrophils % (A) 88 %; Platelet Count 136 k/uL (150-450); RBC 4.61 m/uL (4.30-5.90); RDW 13.5 % (11.5-15.5); WBC 14.3 k/uL (3.8-10.6)
[2020-04-16 10:38] LABS: Albumin 4.2 g/dL (3.5-5.0); Calcium 8.7 mg/dL (8.4-10.2); Potassium 4.6 mmol/L (3.5-5.1); Total Bilirubin 2.6 mg/dL (0.2-1.3); Total Protein 6.9 g/dL (6.3-8.2)
[2020-04-16 10:45] LABS: INR 1.2 (<1.2); Partial Thromboplastin Time 28.8 sec (22.0-30.0); Prothrombin Time 12.2 sec (9.0-12.0)
--- NOTE | 2020-04-16 11:06 | XR ---
EXAMINATION TYPE: XR chest 2V DATE OF EXAM: 04/16/2020 CLINICAL HISTORY: fever. TECHNIQUE: Frontal and lateral view of the chest. COMPARISON: None FINDINGS: Elevation of the right hemidiaphragm. Cardiomegaly. Mediastinal silhouette normal. Pulmonar y vasculature is normal. There is no focal air space opacity, pleural effusion, or pneumothorax seen. Degenerative changes of the shoulders with pseudoarticulation with the humeral heads and acromions b ilaterally. IMPRESSION: Cardiomegaly. No acute pulmonary process.
--- NOTE | 2020-04-16 11:46 | US ---
EXAMINATION TYPE: US venous doppler duplex LE LT DATE OF EXAM: 04/16/2020 9:59 AM COMPARISON: NONE CLINICAL HISTORY: pain. SIDE PERFORMED: Left TECHNIQUE: The lower extremity deep venous system is examined utilizing real time linear array sonog terry with graded compression, doppler sonography and color-flow sonography. VESSELS IMAGED: External Iliac Vein (EIV) Common Femoral Vein Deep Femoral Vein Greater Saphenous Vein * Femoral Vein Popliteal Vein Small Saphenous Vein * Proximal Calf Veins (* superficial vessels) Left Leg: Appears negative for DVT. Normal color flow, waveforms, and compressibility. Subcutaneous edema. IMPRESSION: No evidence of left lower extremity deep venous thrombosis.
[2020-04-16] MEDS ORDERED: NALOXONE 0.4 MG/ML 1 ML VIAL IV PRN (12:02)
[2020-04-16] MEDS ORDERED: ONDANSETRON 4 MG/2 ML VIAL IVP PRN (12:02)
[2020-04-16] MEDS ORDERED: ACETAMINOPHEN TAB 325 MG TAB PO PRN (12:02)
[2020-04-16] MEDS ORDERED: VANCOMYCIN IV PER PHARMACY 1 EACH MISC MISCELLANE PRN (12:03)
[2020-04-16] MEDS: SODIUM CHLORIDE 0.9% 1,000 ML IV SCH ×2 (12:08→20:58)
[2020-04-16] MEDS ORDERED: VANCOMYCIN 1,500 MG in SODIUM CHLORIDE 0.9% 250 ML IVPB ONE (12:30)
[2020-04-16] MEDS: ASPIRIN 325 MG TAB PO SCH (20:55)
[2020-04-16] MEDS: FLUTICASONE 50MCG/SPRAY NASAL 16GM EA NOSTRIL SCH (20:55)
--- NOTE | 2020-04-16 22:07 | P.HPIM ---
History of Present Illness H&P Date: 04/16/20 Chief Complaint: Left leg swellling, redness and fever Mr. Urbano is an 79-year-old male with a past medical history of atrial fibrillation, prostate cancer, hypothyroidism, hyperlipidemia, osteoarthritis, sleep apnea coming into the hospital with a chief complaint of generalized weakness fever left lower extremity redness. Patient states that he usually sleeps in a recliner and when he woke up this morning he noticed that his left leg is swollen and became red. He also felt that he had a fever. Patient denies having any other complaints. He denies having any chest pain or palpitations. No cough or difficulty in breathing. No abdominal pain nausea, vomiting or diarrhea. No dysuria or hematuria. Patient states that he had left hip surgery done few months back. Patient has history of atrial fibrillation takes 325 mg of aspirin twice daily as recommended by his repairer sash and door. In the ER patient was febrile with temperature of 101.3, tachycardia, respiratory rate 18, blood pressure 124/74, saturating at 97% on room air. He had labs done showing an elevated lactic acid of 2.5 and white count of 14.3. Coronavirus PCR is not detected. Troponin 0 0.016. BUN 31, creatinine 1.12. Patient also had a chest x-ray done in the ER showing cardiomegaly and no acute pulmonary process. He also had left leg Doppler that was negative for DVT and positive for subcutaneous edema. Review of Systems REVIEW OF SYSTEMS: CONSTITUTIONAL: +fever, no malaise, no fatigue. HEENT: No recent visual problems or hearing problems. Denied any sore throat. CARDIOVASCULAR: No orthopnea, PND, no palpitations, no syncope. PULMONARY: no cough, no hemoptysis. GASTROINTESTINAL: No diarrhea, no nausea, no vomiting, no abdominal pain. NEUROLOGICAL: No headaches, no weakness, no numbness. HEMATOLOGICAL: Denies any bleeding or petechiae. GENITOURINARY: Denies any burning micturition, frequency, or urgency. MUSCULOSKELETAL/RHEUMATOLOGICAL: Denies any joint pain, swelling, or any muscle pain. ENDOCRINE: Denies any polyuria or polydipsia. The rest of the 14-point review of systems is negative. Past Medical History Past Medical History: Atrial Fibrillation, Cancer, GERD/Reflux, Hyperlipidemia, Osteoarthritis (OA), Prostate Disorder, Sleep Apnea/CPAP/BIPAP, Thyroid Disorder Additional Past Medical History / Comment(s): Hypothyroid, hyperactive bladder, A. fib. SEPTIC ARTHRITIS. History of Any Multi-Drug Resistant Organisms: None Reported Past Surgical History: Heart Catheterization, Tonsillectomy Additional Past Surgical History / Comment(s): radioactive seed implants for prostate cancer, cataracts removed-lens implants, bladder control device implanted 07-10-17 and removed 07-18-18, colonoscopy/polypectomy-benign Past Anesthesia/Blood Transfusion Reactions: No Reported Reaction Additional Past Anesthesia/Blood Transfusion Reaction / Comment(s): has never had any blood transfusion Past Psychological History: No Psychological Hx Reported Past Alcohol Use History: Daily Past Drug Use History: None Reported - Past Family History Mother Family Medical History: Cancer Additional Family Medical History / Comment(s): from colon cancer at age 60 Father Family Medical History: Liver Disease Additional Family Medical History / Comment(s): from cirrhosis of the liver at age 59 they felt it was d/t farming chemicals 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 Medications and Allergies Home Medications Medication Instructions Recorded Confirmed Type Levothyroxine Sodium [Levoxyl] 75 mcg PO DAILY@0700 07/22/18 04/16/20 History Fluticasone Nasal [place] [Flonase 1 spr EA NOSTRIL HS 06/24/19 04/16/20 History Nasal [place]] Aspirin 325 mg PO BID #60 tab 06/30/19 04/16/20 Rx Allergies Allergy/AdvReac Type Severity Reaction Status Date / Time [id number]-[id number]-Msp Reductase AdvReac Severe Rash/Hives Verified 04/16/20 12:53 Inhibitor Physical Exam Vitals: Vital Signs Temp Pulse Resp BP Pulse Ox 04/16/20 15:30 80 18 113/65 96 04/16/20 15:00 69 17 112/53 97 04/16/20 14:30 70 18 107/58 97 04/16/20 14:00 75 18 104/56 98 04/16/20 13:30 85 16 102/56 98 04/16/20 13:00 75 18 105/54 96 04/16/20 12:30 86 17 95/60 96 04/16/20 12:01 99.2 F 80 18 95/60 96 04/16/20 12:00 68 18 97/53 95 04/16/20 11:31 101.3 F H 78 18 125/74 97 04/16/20 11:30 86 18 103/51 96 04/16/20 11:00 84 18 120/67 96 04/16/20 10:30 120/67 04/16/20 10:06 74 31 H 120/67 99 04/16/20 09:38 101.3 F H 78 18 125/74 97 Intake and Output 04/16/20 04/16/20 04/16/20 06:59 14:59 22:59 Other: Weight 99.79 kg PHYSICAL EXAMINATION: GENERAL: The patient is alert and oriented x2- 3, not in any acute distress. Well developed, well nourished. HEENT: Pupils are round and equally reacting to light. EOMI. No scleral icterus. No conjunctival pallor. Normocephalic, atraumatic. No pharyngeal erythema. No thyromegaly. CARDIOVASCULAR: S1 and S2 present. No murmurs, rubs, or gallops. PULMONARY: Chest is clear to auscultation, no wheezing or crackles. Diminished at bases ABDOMEN: Soft, nontender, nondistended, normoactive bowel sounds. No palpable organomegaly. MUSCULOSKELETAL: No joint swelling or deformity. EXTREMITIES: Left leg + tenderness, redness and warm to touch. Skin over the left groin - +mild redness. Right LE - no edema. NEUROLOGICAL: Gross neurological examination did not reveal any focal deficits. Results CBC & Chem 7: 04/16/20 10:13 04/16/20 10:13 Labs: Abnormal Lab Results - Last 24 Hours (Table) 04/16/20 04/16/20 04/16/20 Range/Units 10:13 10:13 10:13 WBC 14.3 H (3.8-10.6) k/uL MCV 100.1 H (80.0-100.0) fL Plt Count 136 L (150-450) k/uL Neutrophils # 12.5 H (1.3-7.7) k/uL PT 12.2 H (9.0-12.0) sec INR 1.2 H (<1.2) Sodium 133 L (137-145) mmol/L BUN 31 H (9-20) mg/dL Glucose 131 H (74-99) mg/dL Plasma Lactic Acid Franky (0.7-2.0) mmol/L Total Bilirubin 2.6 H (0.2-1.3) mg/dL Creatine Kinase 241 H (55-170) U/L 04/16/20 Range/Units 10:13 WBC (3.8-10.6) k/uL MCV (80.0-100.0) fL Plt Count (150-450) k/uL Neutrophils # (1.3-7.7) k/uL PT (9.0-12.0) sec INR (<1.2) Sodium (137-145) mmol/L BUN (9-20) mg/dL Glucose (74-99) mg/dL Plasma Lactic Acid Franky 2.5 H* (0.7-2.0) mmol/L Total Bilirubin (0.2-1.3) mg/dL Creatine Kinase (55-170) U/L Assessment and Plan Assessment: ASSESSMENT Sepsis -secondary to left lower extremity cellulitis Lactic acidosis Macrocytosis Acute kidney injury-secondary to #1 History of atrial fibrillation not on anticoagulation History of prostate cancer Hypothyroidism Osteoarthritis Hyperactive bladder PLAN: Patient has been started on IV vancomycin in the ED which will be continued. Patient had a lower extremity Doppler that was negative for DVT. Continue with IV fluids at 130 cc/hr. patient has history of atrial fibrillation, he takes aspirin 325 mg twice daily but not on any anticoagulation. Continue with the rest of his home medications that have been restarted. Further recommendations to follow depending on the progress of the patient.
[2020-04-17] MEDS: SODIUM CHLORIDE 0.9% 1,000 ML IV SCH ×3 (05:32→17:42)
[2020-04-17] MEDS ORDERED: VANCOMYCIN 1,500 MG in SODIUM CHLORIDE 0.9% 250 ML IVPB SCH (06:00)
[2020-04-17 06:35] LABS: Basophils % (A) 0 %; Eosinophils % (A) 0 %; HCT 39.9 % (39.0-53.0); HGB 12.9 gm/dL (13.0-17.5); Lymphocytes # (A) 0.8 k/uL (1.0-4.8); Lymphocytes % (A) 8 %; MCH 32.4 pg (25.0-35.0); MCHC 32.3 g/dL (31.0-37.0); MCV 100.3 fL (80.0-100.0); Mean Platelet Volume 8.1; Monocytes # (A) 0.3 k/uL (0-1.0); Monocytes % (A) 3 %; Neutrophils # (A) 8.8 k/uL (1.3-7.7); Neutrophils % (A) 87 %; Platelet Count 122 k/uL (150-450); RBC 3.98 m/uL (4.30-5.90); RDW 13.5 % (11.5-15.5); WBC 10.1 k/uL (3.8-10.6)
[2020-04-17] MEDS: ENOXAPARIN 40 MG/0.4 ML SYRINGE SQ SCH (08:16)
[2020-04-17] MEDS: ASPIRIN 325 MG TAB PO SCH ×2 (08:16→21:04)
[2020-04-17] MEDS: LEVOTHYROXINE 75 MCG TAB PO SCH (08:16)
[2020-04-17 09:23] LABS: African American GFR (CKD) 97.8 (60.0-200.0); Anion Gap 7.1 mmol/L (4.00-12.00); BUN/Creat Ratio 32.5 Ratio (12.00-20.00); Calcium 7.9 mg/dL (8.7-10.3); Carbon Dioxide 23.9 mmol/L (21.6-31.8); Non-African American GFR(CKD) 84.4 (60.0-200.0); Potassium 3.9 mmol/L (3.5-5.5)
--- NOTE | 2020-04-17 15:49 | P.PN ---
Subjective Progress Note Date: 04/17/20 Principal diagnosis: Left lower extremity cellulitis Mr. Urbano is an 79-year-old male with a past medical history of atrial fibrillation, prostate cancer, hypothyroidism, hyperlipidemia, osteoarthritis, sleep apnea coming into the hospital with a chief complaint of generalized weakness fever left lower extremity redness. Patient states that he usually sleeps in a recliner and when he woke up this morning he noticed that his left leg is swollen and became red. He also felt that he had a fever. Patient denies having any other complaints. He denies having any chest pain or palpitations. No cough or difficulty in breathing. No abdominal pain nausea, vomiting or diarrhea. No dysuria or hematuria. Patient states that he had left hip surgery done few months back. Patient has history of atrial fibrillation takes 325 mg of aspirin twice daily as recommended by his manager solution. In the ER patient was febrile with temperature of 101.3, tachycardia, respira tory rate 18, blood pressure 124/74, saturating at 97% on room air. He had labs done showing an elevated lactic acid of 2.5 and white count of 14.3. Coronavirus PCR is not detected. Troponin 0 0.016. BUN 31, creatinine 1.12. Patient also had a chest x-ray done in the ER showing cardiomegaly and no acute pulmonary process. He also had left leg Doppler that was negative for DVT and positive for subcutaneous edema. On 04/17/2020 - patient is sitting up in a chair by the bedside appears to be no acute distress. No acute events reported by nursing staff overnight. Patient states that the left lower extremity redness is getting better. Patient denies having any pain. He denies having any fevers chills or rigors. No complains of chest pain or palpitations. No cough or difficulty in breathing. No abdominal Pain nausea vomiting or diarrhea. No dysuria or hematuria. On reviewing the patient's vitals he has a fever of 99.2, heart rate 91, respiratory rate 18, blood pressure 1 39 x 72, saturating at 98% on room air. On reviewing the last white count of 10.1 decreased from 14.3 yesterday, hemoglobin 12.9, platelets 122. Sodium 136 combinations 3.9, chloride 105, bicarbonate 26. BUN 26, creatinine 0.8. Active Medications Acetaminophen (Acetaminophen Tab 325 Mg Tab) 650 mg PO Q6HR PRN PRN Reason: Mild Pain or Fever > 100.5 Aspirin (Aspirin 325 Mg Tab) 325 mg PO BID [facility] Last Admin: 04/17/20 08:16 Dose: 325 mg Documented by: Enoxaparin Sodium (Enoxaparin 40 Mg/0.4 Ml Syringe) 40 mg SQ DAILY [facility] Last Admin: 04/17/20 08:16 Dose: 40 mg Documented by: Fluticasone Propionate (Fluticasone 50mcg/[place] Nasal 16gm) 1 spray EA NOSTRIL HS [facility] Last Admin: 04/16/20 20:55 Dose: 1 spray Documented by: Sodium Chloride (Saline 0.9%) 1,000 mls @ 130 mls/hr IV .Q7H42M [facility] Last Admin: 04/17/20 10:54 Dose: Not Given Documented by: Vancomycin HCl 1,500 mg/ (Sodium Chloride) 250 mls @ 125 mls/hr IVPB Q12H [facility] Levothyroxine Sodium (Levothyroxine 75 Mcg Tab) 75 mcg PO DAILY@0700 [facility] Last Admin: 04/17/20 08:16 Dose: 75 mcg Documented by: Naloxone HCl (Naloxone 0.4 Mg/Ml 1 Ml Vial) 0.2 mg IV Q2M PRN PRN Reason: Opioid Reversal Ondansetron HCl (Ondansetron 4 Mg/2 Ml Vial) 4 mg IVP Q8HR PRN PRN Reason: Nausea And Vomiting Objective - Vital Signs Vital signs: Vital Signs Temp 99.2 F 04/17/20 07:00 Pulse 85 04/17/20 14:53 Resp 18 04/17/20 14:53 BP 139/72 04/17/20 14:53 Pulse Ox 98 04/17/20 14:53 Intake & Output 04/16/20 04/17/20 04/17/20 18:59 06:59 18:59 Intake Total 1290 Balance 1290 Weight 99.79 kg Intake: Intake, IV Titration 1290 Amount Sodium Chloride 0.9% 1, 1040 000 ml @ 130 mls/hr IV . Q7H42M [facility] Rx#:[id number] Vancomycin 1,500 mg In 250 Sodium Chloride 0.9% 250 ml @ 125 mls/hr IVPB Q16H [facility] Rx#:[id number] Other: Voiding Method Urinal Urinal # Voids 1 4 - Exam PHYSICAL EXAMINATION: GENERAL: The patient is alert and oriented x2- 3, not in any acute distress. Well developed, well nourished. HEENT: Pupils are round and equally reacting to light. EOMI. No scleral icterus. No conjunctival pallor. Normocephalic, atraumatic. No pharyngeal erythema. No th yromegaly. CARDIOVASCULAR: S1 and S2 present. No murmurs, rubs, or gallops. PULMONARY: Chest is clear to auscultation, no wheezing or crackles. Diminished at bases ABDOMEN: Soft, nontender, nondistended, normoactive bowel sounds. No palpable organomegaly. MUSCULOSKELETAL: No joint swelling or deformity. EXTREMITIES: Left leg + tenderness, redness and warm to touch. Skin over the left groin - +mild redness. The redness over the left leg and the left groin improved compared to yesterday Right LE - no edema. NEUROLOGICAL: Gross neurological examination did not reveal any focal deficits. - Labs CBC & Chem 7: 04/17/20 06:03 04/17/20 06:03 Labs: Abnormal Lab Results - Last 24 Hours (Table) 04/17/20 04/17/20 Range/Units 06:03 06:03 RBC 3.98 L (4.30-5.90) m/uL Hgb 12.9 L (13.0-17.5) gm/dL MCV 100.3 H (80.0-100.0) fL Plt Count 122 L (150-450) k/uL Neutrophils # 8.8 H (1.3-7.7) k/uL Lymphocytes # 0.8 L (1.0-4.8) k/uL BUN/Creatinine Ratio 32.50 H (12.00-20.00) Ratio Calcium 7.9 L (8.7-10.3) mg/dL Microbiology - Last 24 Hours (Table) 04/16/20 10:13 Blood Culture - Preliminary Blood No Growth after 24 hours Assessment and Plan Assessment: ASSESSMENT Sepsis -secondary to left lower extremity cellulitis Lactic acidosis Macrocytosis Acute kidney injury-secondary to #1 History of atrial fibrillation not on anticoagulation History of prostate cancer Hypothyroidism Osteoarthritis Hyperactive bladder PLAN: Patient has been started on IV vancomycin in the ED which will be continued. Patient had a lower extremity Doppler that was negative for DVT. Continue with IV fluids at 130 cc/hr. patient has history of atrial fibrillation, he takes aspirin 325 mg twice daily but not on any anticoagulation. Patient showed significant improvement in his swelling both in the left lower extremity and left groin, to continue with IV vancomycin. WBC trending down. Blood cultures are currently pending. Further recommendations to follow depending on the progress of the patient.
[2020-04-17] MEDS: VANCOMYCIN 1,500 MG in SODIUM CHLORIDE 0.9% 250 ML IVPB SCH (17:40)
[2020-04-17] MEDS: FLUTICASONE 50MCG/SPRAY NASAL 16GM EA NOSTRIL SCH (21:04)
[2020-04-18] MEDS: SODIUM CHLORIDE 0.9% 1,000 ML IV SCH ×3 (05:02→21:13)
[2020-04-18 06:32] LABS: Basophils % (A) 0 %; Eosinophils % (A) 0 %; HCT 37.5 % (39.0-53.0); HGB 12.4 gm/dL (13.0-17.5); Lymphocytes # (A) 0.9 k/uL (1.0-4.8); Lymphocytes % (A) 11 %; MCH 32.5 pg (25.0-35.0); MCV 98.7 fL (80.0-100.0); Mean Platelet Volume 8.4; Monocytes # (A) 0.4 k/uL (0-1.0); Monocytes % (A) 5 %; Neutrophils # (A) 6.6 k/uL (1.3-7.7); Neutrophils % (A) 83 %; Platelet Count 124 k/uL (150-450); RDW 13.6 % (11.5-15.5)
[2020-04-18] MEDS: VANCOMYCIN 1,500 MG in SODIUM CHLORIDE 0.9% 250 ML IVPB SCH ×2 (07:27→16:51)
[2020-04-18] MEDS: ASPIRIN 325 MG TAB PO SCH ×2 (07:27→21:12)
[2020-04-18] MEDS: ENOXAPARIN 40 MG/0.4 ML SYRINGE SQ SCH (07:27)
[2020-04-18] MEDS: LEVOTHYROXINE 75 MCG TAB PO SCH (07:27)
[2020-04-18 10:11] LABS: African American GFR (CKD) 103.3 (60.0-200.0); Anion Gap 8.9 mmol/L (4.00-12.00); BUN/Creat Ratio 22.86 Ratio (12.00-20.00); Calcium 8.1 mg/dL (8.7-10.3); Carbon Dioxide 23.1 mmol/L (21.6-31.8); Non-African American GFR(CKD) 89.1 (60.0-200.0); Potassium 3.9 mmol/L (3.5-5.5)
[2020-04-18] MEDS: FLUTICASONE 50MCG/SPRAY NASAL 16GM EA NOSTRIL SCH (21:12)
--- NOTE | 2020-04-19 00:04 | P.PN ---
Subjective Progress Note Date: 04/18/20 Principal diagnosis: Left lower extremity cellulitis Mr. Urbano is an 79-year-old male with a past medical history of atrial fibrillation, prostate cancer, hypothyroidism, hyperlipidemia, osteoarthritis, sleep apnea coming into the hospital with a chief complaint of generalized weakness fever left lower extremity redness. Patient states that he usually sleeps in a recliner and when he woke up this morning he noticed that his left leg is swollen and became red. He also felt that he had a fever. Patient denies having any other complaints. He denies having any chest pain or palpitations. No cough or difficulty in breathing. No abdominal pain nausea, vomiting or diarrhea. No dysuria or hematuria. Patient states that he had left hip surgery done few months back. Patient has history of atrial fibrillation takes 325 mg of aspirin twice daily as recommended by his english instructor. In the ER patient was febrile with temperature of 101.3, tachycardia, respira tory rate 18, blood pressure 124/74, saturating at 97% on room air. He had labs done showing an elevated lactic acid of 2.5 and white count of 14.3. Coronavirus PCR is not detected. Troponin 0 0.016. BUN 31, creatinine 1.12. Patient also had a chest x-ray done in the ER showing cardiomegaly and no acute pulmonary process. He also had left leg Doppler that was negative for DVT and positive for subcutaneous edema. On 04/17/2020 - patient is sitting up in a chair by the bedside appears to be no acute distress. No acute events reported by nursing staff overnight. Patient states that the left lower extremity redness is getting better. Patient denies having any pain. He denies having any fevers chills or rigors. No complains of chest pain or palpitations. No cough or difficulty in breathing. No abdominal Pain nausea vomiting or diarrhea. No dysuria or hematuria. On reviewing the patient's vitals he has a fever of 99.2, heart rate 91, respiratory rate 18, blood pressure 1 39 x 72, saturating at 98% on room air. On reviewing the last white count of 10.1 decreased from 14.3 yesterday, hemoglobin 12.9, platelets 122. Sodium 136 combinations 3.9, chloride 105, bicarbonate 26. BUN 26, creatinine 0.8. On 04/18/2020 -patient is sitting up in a chair by the bedside appears to be in no acute distress. No acute events reported by nursing staff. Patient states that his redness of his left leg is improving. Patient denies having any fevers chills or rigors. Patient denies having any chest pain or palpitations. No cough or difficulty in breathing. No abdominal pain nausea vomiting or diarrhea. No dysuria or hematuria. On reviewing the patient's vitals T-max of 98.6, heart rate of 74, respiratory rate 16, blood pressure 145/76 saturating at 98% on room air. Patient's labs show white count of 8, hemoglobin of 12.4, platelets 124. Sodium 137, potassium 3.9, chloride 105, bicarb 29, BUN 16, creatinine 0.7. Blood cultures obtained from the 7 no growth after 48 hours. Active Medications Acetaminophen (Acetaminophen Tab 325 Mg Tab) 650 mg PO Q6HR PRN PRN Reason: Mild Pain or Fever > 100.5 Aspirin (Aspirin 325 Mg Tab) 325 mg PO BID [facility] Last Admin: 04/18/20 21:12 Dose: 325 mg Documented by: Enoxaparin Sodium (Enoxaparin 40 Mg/0.4 Ml Syringe) 40 mg SQ DAILY [facility] Last Admin: 04/18/20 07:27 Dose: 40 mg Documented by: Fluticasone Propionate (Fluticasone 50mcg/[place] Nasal 16gm) 1 spray EA NOSTRIL HS [facility] Last Admin: 04/18/20 21:12 Dose: 1 spray Documented by: Sodium Chloride (Saline 0.9%) 1,000 mls @ 130 mls/hr IV .Q7H42M [facility] Last Admin: 04/18/20 21:13 Dose: 130 mls/hr Documented by: Vancomycin HCl 1,500 mg/ (Sodium Chloride) 250 mls @ 125 mls/hr IVPB Q12H [facility] Last Admin: 04/18/20 16:51 Dose: 125 mls/hr Documented by: Levothyroxine Sodium (Levothyroxine 75 Mcg Tab) 75 mcg PO DAILY@0700 [facility] Last Admin: 04/18/20 07:27 Dose: 75 mcg Documented by: Miscellaneous Information (Vancomycin Trough Due 1 Each Misc) 0 each MISCELLANE DIRECTED ONE Stop: 04/19/20 05:01 Naloxone HCl (Naloxone 0.4 Mg/Ml 1 Ml Vial) 0.2 mg IV Q2M PRN PRN Reason: Opioid Reversal Ondansetron HCl (Ondansetron 4 Mg/2 Ml Vial) 4 mg IVP Q8HR PRN PRN Reason: Nausea And Vomiting Objective - Vital Signs Vital signs: Vital Signs Temp 98.4 F 04/18/20 07:00 Pulse 94 04/18/20 08:00 Resp 18 04/18/20 08:00 BP 146/74 04/18/20 07:00 Pulse Ox 96 04/18/20 07:00 Intake & Output 04/17/20 04/18/20 04/18/20 18:59 06:59 18:59 Intake Total 1040 Balance 1040 Intake: Intake, IV Titration 1040 Amount Sodium Chloride 0.9% 1, 1040 000 ml @ 130 mls/hr IV . Q7H42M [facility] Rx#:[id number] Other: Voiding Method Urinal Toilet Toilet Urinal Urinal # Voids 4 1 - Exam PHYSICAL EXAMINATION: GENERAL: The patient is alert and oriented x2- 3, not in any acute distress. Well developed, well nourished. HEENT: No pallor or Icterus CARDIOVASCULAR: S1 and S2 present. No murmurs, rubs, or gallops. PULMONARY: Chest is clear to auscultation, no wheezing or crackles. Diminished at bases ABDOMEN: Soft, nontender, nondistended, normoactive bowel sounds. No palpable organomegaly. MUSCULOSKELETAL: No joint swelling or deformity. EXTREMITIES: The redness over the left leg and the left groin improving Right LE - no edema. NEUROLOGICAL: Gross neurological examination did not reveal any focal deficits. - Labs CBC & Chem 7: 04/18/20 05:15 04/18/20 05:15 Labs: Abnormal Lab Results - Last 24 Hours (Table) 04/18/20 04/18/20 Range/Units 05:15 05:15 RBC 3.80 L (4.30-5.90) m/uL Hgb 12.4 L (13.0-17.5) gm/dL Hct 37.5 L (39.0-53.0) % Plt Count 124 L (150-450) k/uL Lymphocytes # 0.9 L (1.0-4.8) k/uL BUN/Creatinine Ratio 22.86 H (12.00-20.00) Ratio Calcium 8.1 L (8.7-10.3) mg/dL Microbiology - Last 24 Hours (Table) 04/16/20 10:13 Blood Culture - Preliminary Blood No Growth after 48 hours Assessment and Plan Assessment: ASSESSMENT Sepsis -secondary to left lower extremity cellulitis Lactic acidosis Macrocytosis Acute kidney injury-secondary to #1 History of atrial fibrillation not on anticoagulation History of prostate cancer Hypothyroidism Osteoarthritis Hyperactive bladder PLAN: Patient had a lower extremity Doppler that was negative for DVT. Patient has history of atrial fibrillation, he takes aspirin 325 mg twice daily but not on any anticoagulation. Patient showed significant improvement in his swelling both in the left lower extremity and left groin, to continue with IV vancomycin. Creatinine trending down and WBC trending down. Blood cultures are currently pending. Further recommendations to follow depending on the progress of the patient.
[2020-04-19] MEDS ORDERED: VANCOMYCIN TROUGH DUE 1 EACH MISC MISCELLANE ONE (05:00)
[2020-04-19] MEDS: VANCOMYCIN 1,500 MG in SODIUM CHLORIDE 0.9% 250 ML IVPB SCH (05:38)
[2020-04-19] MEDS: LEVOTHYROXINE 75 MCG TAB PO SCH (07:53)
[2020-04-19 07:58] LABS: Basophils % (A) 1 %; Eosinophils # (A) 0.1 k/uL (0-0.7); Eosinophils % (A) 2 %; HCT 38.4 % (39.0-53.0); HGB 12.5 gm/dL (13.0-17.5); Lymphocytes # (A) 0.7 k/uL (1.0-4.8); Lymphocytes % (A) 13 %; MCH 32.2 pg (25.0-35.0); MCHC 32.5 g/dL (31.0-37.0); MCV 99.1 fL (80.0-100.0); Mean Platelet Volume 8.8; Monocytes # (A) 0.5 k/uL (0-1.0); Monocytes % (A) 8 %; Neutrophils # (A) 4.1 k/uL (1.3-7.7); Neutrophils % (A) 75 %; Platelet Count 143 k/uL (150-450); RBC 3.87 m/uL (4.30-5.90); RDW 13.5 % (11.5-15.5); WBC 5.5 k/uL (3.8-10.6)
[2020-04-19] MEDS: ENOXAPARIN 40 MG/0.4 ML SYRINGE SQ SCH (08:00)
[2020-04-19] MEDS: ASPIRIN 325 MG TAB PO SCH ×2 (08:00→21:23)
[2020-04-19 10:50] LABS: African American GFR (CKD) 103.3 (60.0-200.0); Anion Gap 9.6 mmol/L (4.00-12.00); BUN/Creat Ratio 18.57 Ratio (12.00-20.00); Calcium 7.9 mg/dL (8.7-10.3); Carbon Dioxide 23.4 mmol/L (21.6-31.8); Non-African American GFR(CKD) 89.1 (60.0-200.0); Potassium 3.9 mmol/L (3.5-5.5)
[2020-04-19 14:39] VITALS: RESP 18
[2020-04-19] MEDS: VANCOMYCIN 1,750 MG in SODIUM CHLORIDE 0.9% 500 ML 500 ML IVPB SCH (19:04)
--- NOTE | 2020-04-19 20:29 | P.PN ---
Subjective From the records Mr. Urbano is an 79-year-old male with a past medical history of atrial fibrillation, prostate cancer, hypothyroidism, hyperlipidemia, osteoarthritis, sleep apnea coming into the hospital with a chief complaint of generalized weakn ess fever left lower extremity redness. Patient states that he usually sleeps in a recliner and when he woke up this morning he noticed that his left leg is swollen and became red. He also felt that he had a fever. Patient denies having any other complaints. He denies having any chest pain or palpitations. No cough or difficulty in breathing. No abdominal pain nausea, vomiting or diarrhea. No dysuria or hematuria. Patient states that he had left hip surgery done few months back. Patient has history of atrial fibrillation takes 325 mg of aspirin twice daily as recommended by his windows software engineer. In the ER patient was febrile with temperature of 101.3, tachycardia, respiratory rate 18, blood pressure 124/74, saturating at 97% on room air. He had labs done showing an elevated lactic acid of 2.5 and white count of 14.3. Coronavirus PCR is not detected. Troponin 0 0.016. BUN 31, creatinine 1.12. Patient also had a chest x-ray done in the ER showing cardiomegaly and no acute pulmonary process. He also had left leg Doppler that was negative for DVT and positive for subcutaneous edema. On 04/17/2020 - patient is sitting up in a chair by the bedside appears to be no acute distress. No acute events reported by nursing staff overnight. Patient states that the left lower extremity redness is getting better. Patient denies having any pain. He denies having any fevers chills or rigors. No complains of chest pain or palpitations. No cough or difficulty in breathing. No abdominal Pain nausea vomiting or diarrhea. No dysuria or hematuria. On reviewing the patient's vitals he has a fever of 99.2, heart rate 91, respiratory rate 18, blood pressure 1 39 x 72, saturating at 98% on room air. On reviewing the last white count of 10.1 decreased from 14.3 yesterday, hemoglobin 12.9, platelets 122. Sodium 136 combinations 3.9, chloride 105, bicarbonate 26. BUN 26, crea tinine 0.8. On 04/18/2020 -patient is sitting up in a chair by the bedside appears to be in no acute distress. No acute events reported by nursing staff. Patient states that his redness of his left leg is improving. Patient denies having any fevers chills or rigors. Patient denies having any chest pain or palpitations. No cough or difficulty in breathing. No abdominal pain nausea vomiting or diarrhea. No dysuria or hematuria. On reviewing the patient's vitals T-max of 98.6, heart rate of 74, respiratory rate 16, blood pressure 145/76 saturating at 98% on room air. Patient's labs show white count of 8, hemoglobin of 12.4, platelets 124. Sodium 137, potassium 3.9, chloride 105, bicarb 29, BUN 16, creatinine 0.7. Blood cultures obtained from the 7 no growth after 48 hours. Subjective: This is the first time taking care of the patient 04/19/2020 This is a pleasant 79 years old male with past medical history of hyperlipidemia, osteoarthritis, GERD, atrial fibrillation, sleep apnea on CPAP/BiPAP, hypothyroidism. Presents because of left lower extremity cellulitis. Patient improving slowly on IV vancomycin. Doppler of the lower extremity is negative for DVT. Patient has history of A. fib is not on anticoagulation, he follow-up with his windows software engineer Dr. Burgess as an outpatient. Hemodynamically and labs reviewed and it looks stable Objective - Vital Signs Vital signs: Vital Signs Temp 97.9 F 04/19/20 14:39 Pulse 75 04/19/20 14:39 Resp 18 04/19/20 14:39 BP 164/78 04/19/20 14:39 Pulse Ox 98 04/19/20 14:39 Intake & Output 04/19/20 04/19/20 04/20/20 06:59 18:59 06:59 Intake Total 1040 Balance 1040 Intake: IV 1040 Sodium Chloride 0.9% 1, 1040 000 ml @ 130 mls/hr IV . Q7H42M [facility] Rx#:[id number] Other: Voiding Method Toilet Toilet Urinal Urinal Diaper - Exam GENERAL: The patient is alert and oriented x3, not in any acute distress. Well developed, well nourished. HEENT: Pupils are round and equally reacting to light. EOMI. No scleral icterus. No conjunctival pallor. Normocephalic, atraumatic. No pharyngeal erythema. No thyromegaly. CARDIOVASCULAR: S1 and S2 present. No murmurs, rubs, or gallops. PULMONARY: Chest is clear to auscultation, no wheezing or crackles. ABDOMEN: Soft, nontender, nondistended, normoactive bowel sounds. No palpable organomegaly. MUSCULOSKELETAL: No joint swelling or deformity. -EXTREMITIES: No cyanosis, clubbing, or pedal edema. Left lower extremity cellulitis, improving NEUROLOGICAL: Gross neurological examination did not reveal any focal deficits. SKIN: No rashes. no petechiae. - Labs CBC & Chem 7: 04/19/20 05:24 04/19/20 05:24 Labs: Abnormal Lab Results - Last 24 Hours (Table) 04/19/20 04/19/20 Range/Units 05:24 05:24 RBC 3.87 L (4.30-5.90) m/uL Hgb 12.5 L (13.0-17.5) gm/dL Hct 38.4 L (39.0-53.0) % Plt Count 143 L (150-450) k/uL Lymphocytes # 0.7 L (1.0-4.8) k/uL Calcium 7.9 L (8.7-10.3) mg/dL Microbiology - Last 24 Hours (Table) 04/16/20 10:13 Blood Culture - Preliminary Blood No Growth after 72 hours Assessment and Plan Assessment: left lower extremity cellulitis Lactic acidosis, came back to normal Macrocytosis Acute kidney injury-secondary to #1 History of atrial fibrillation not on anticoagulation History of prostate cancer Hypothyroidism Osteoarthritis Hyperactive bladder Plan: This is a pleasant 79 years old male who presents because of left lower extremity cellulitis. Continue with IV vancomycin. Monitor patient clinically. Consult infectious disease. Positive for physical therapy evaluation Labs and medication were reviewed.. Continue same treatment. Continue with symptomatic treatment. Resume home medication. Monitor lytes and vitals. DVT and GI prophylaxis. Further recommendationsas per clinical course of the patient DVT prophylaxis: Subcutaneous Lovenox GI Prophylaxis: Pepcid Prognosis is guarded
[2020-04-19] MEDS: FLUTICASONE 50MCG/SPRAY NASAL 16GM EA NOSTRIL SCH (21:23)
[2020-04-19] MEDS: FAMOTIDINE 20 MG/2 ML VIAL IV SCH (21:23)
[2020-04-20] MEDS: VANCOMYCIN 1,750 MG in SODIUM CHLORIDE 0.9% 500 ML 500 ML IVPB SCH (05:54)
[2020-04-20] MEDS: ASPIRIN 325 MG TAB PO SCH ×2 (10:00→20:51)
[2020-04-20] MEDS: ENOXAPARIN 40 MG/0.4 ML SYRINGE SQ SCH (10:00)
[2020-04-20] MEDS: LEVOTHYROXINE 75 MCG TAB PO SCH (10:00)
[2020-04-20] MEDS: FAMOTIDINE 20 MG/2 ML VIAL IV SCH (10:00)
--- NOTE | 2020-04-20 11:43 | P.PN ---
Subjective From the records Mr. Urbano is an 79-year-old male with a past medical history of atrial fibrillation, prostate cancer, hypothyroidism, hyperlipidemia, osteoarthritis, sleep apnea coming into the hospital with a chief complaint of generalized weakn ess fever left lower extremity redness. Patient states that he usually sleeps in a recliner and when he woke up this morning he noticed that his left leg is swollen and became red. He also felt that he had a fever. Patient denies having any other complaints. He denies having any chest pain or palpitations. No cough or difficulty in breathing. No abdominal pain nausea, vomiting or diarrhea. No dysuria or hematuria. Patient states that he had left hip surgery done few months back. Patient has history of atrial fibrillation takes 325 mg of aspirin twice daily as recommended by his cooling machine operator. In the ER patient was febrile with temperature of 101.3, tachycardia, respiratory rate 18, blood pressure 124/74, saturating at 97% on room air. He had labs done showing an elevated lactic acid of 2.5 and white count of 14.3. Coronavirus PCR is not detected. Troponin 0 0.016. BUN 31, creatinine 1.12. Patient also had a chest x-ray done in the ER showing cardiomegaly and no acute pulmonary process. He also had left leg Doppler that was negative for DVT and positive for subcutaneous edema. On 04/17/2020 - patient is sitting up in a chair by the bedside appears to be no acute distress. No acute events reported by nursing staff overnight. Patient states that the left lower extremity redness is getting better. Patient denies having any pain. He denies having any fevers chills or rigors. No complains of chest pain or palpitations. No cough or difficulty in breathing. No abdominal Pain nausea vomiting or diarrhea. No dysuria or hematuria. On reviewing the patient's vitals he has a fever of 99.2, heart rate 91, respiratory rate 18, blood pressure 1 39 x 72, saturating at 98% on room air. On reviewing the last white count of 10.1 decreased from 14.3 yesterday, hemoglobin 12.9, platelets 122. Sodium 136 combinations 3.9, chloride 105, bicarbonate 26. BUN 26, crea tinine 0.8. On 04/18/2020 -patient is sitting up in a chair by the bedside appears to be in no acute distress. No acute events reported by nursing staff. Patient states that his redness of his left leg is improving. Patient denies having any fevers chills or rigors. Patient denies having any chest pain or palpitations. No cough or difficulty in breathing. No abdominal pain nausea vomiting or diarrhea. No dysuria or hematuria. On reviewing the patient's vitals T-max of 98.6, heart rate of 74, respiratory rate 16, blood pressure 145/76 saturating at 98% on room air. Patient's labs show white count of 8, hemoglobin of 12.4, platelets 124. Sodium 137, potassium 3.9, chloride 105, bicarb 29, BUN 16, creatinine 0.7. Blood cultures obtained from the 7 no growth after 48 hours. Subjective: 04/19/2020 This is a pleasant 79 years old male with past medical history of hyperlipidemia, osteoarthritis, GERD, atrial fibrillation, sleep apnea on CPAP/BiPAP, hypothyroidism. Presents because of left lower extremity cellulitis. Patient improving slowly on IV vancomycin. Doppler of the lower extremity is negative for DVT. Patient has history of A. fib is not on anticoagulation, he follow-up with his cooling machine operator Dr. Burgess as an outpatient. Hemodynamically and labs reviewed and it looks stable 04/20/2020 Patient with left leg cellulitis, improving gradually, today is less red and more pink. However his left leg still swelling. No pain or tenderness since admission. His left groin cellulitis is significantly improved at Hemodynamically stable. No labs from today we will check creatinine. Patient remains on IV vancomycin. Infectious disease team were consulted. Patient also with history of atrial fibrillation, he is on aspirin twice a day, he follows up with Dr. Jenifer Balderas as an outpatient cooling machine operator, he sees her frequency, and he is aware of the risk of stroke with his atrial fibrillation and he said he declined on blood thinner because of reaction however every mostly discuss it with [facility] through virtual encounter. I advised patient to follow-up with his cooling machine operator Dr. Berry in one month and he agrees Objective - Vital Signs Vital signs: Vital Signs Temp 98.4 F 04/20/20 07:00 Pulse 70 04/20/20 07:00 Resp 18 04/20/20 07:00 BP 146/70 04/20/20 07:00 Pulse Ox 96 04/20/20 07:00 Intake & Output 04/19/20 04/20/20 04/20/20 18:59 06:59 18:59 Intake Total 1040 Balance 1040 Intake: IV 1040 Sodium Chloride 0.9% 1, 1040 000 ml @ 130 mls/hr IV . Q7H42M [facility] Rx#:[id number] Other: Voiding Method Toilet Toilet Toilet Urinal Urinal Urinal Diaper Diaper Diaper - Exam GENERAL: The patient is alert and oriented x3, not in any acute distress. Well developed, well nourished. HEENT: Pupils are round and equally reacting to light. EOMI. No scleral icterus. No conjunctival pallor. Normocephalic, atraumatic. No pharyngeal erythema. No thyromegaly. CARDIOVASCULAR: S1 and S2 present. No murmurs, rubs, or gallops. PULMONARY: Chest is clear to auscultation, no wheezing or crackles. ABDOMEN: Soft, nontender, nondistended, normoactive bowel sounds. No palpable organomegaly. MUSCULOSKELETAL: No joint swelling or deformity. -EXTREMITIES: No cyanosis, clubbing, or pedal edema. Left lower extremity cellulitis, improving NEUROLOGICAL: Gross neurological examination did not reveal any focal deficits. SKIN: No rashes. no petechiae. - Labs CBC & Chem 7: 04/19/20 05:24 04/19/20 05:24 Labs: Microbiology - Last 24 Hours (Table) 04/16/20 10:13 Blood Culture - Preliminary Blood No Growth after 72 hours Assessment and Plan Assessment: left lower extremity cellulitis Lactic acidosis, came back to normal Acute kidney back to normal History of atrial fibrillation not on anticoagulation, patient refusal History of prostate cancer Hypothyroidism Osteoarthritis Hyperactive bladder Plan: This is a pleasant 79 years old male who presents because of left lower extremity cellulitis. Continue with IV vancomycin. Monitor patient clinically. Consult infectious disease. Positive for physical therapy evaluation Labs and medication were reviewed.. Continue same treatment. Continue with symptomatic treatment. Resume home medication. Monitor lytes and vitals. DVT and GI prophylaxis. Further recommendationsas per clinical course of the patient DVT prophylaxis: Subcutaneous Lovenox GI Prophylaxis: Pepcid Prognosis is guarded
[2020-04-20 11:51] LABS: African American GFR (CKD) 97.8 (60.0-200.0); Non-African American GFR(CKD) 84.4 (60.0-200.0)
[2020-04-20 12:06] LABS: Calcium 8.3 mg/dL (8.4-10.2); Potassium 3.8 mmol/L (3.5-5.1)
[2020-04-20] MEDS: amLODIPine 5 MG TAB PO SCH (20:50)
[2020-04-20] MEDS: FLUTICASONE 50MCG/SPRAY NASAL 16GM EA NOSTRIL SCH (20:51)
[2020-04-20] MEDS: FAMOTIDINE 20 MG TAB PO SCH (20:51)
--- NOTE | 2020-04-20 22:29 | P.CONS ---
History of Present Illness - Reason for Consult Consult date: 04/20/20 Left lower extremity cellulitis Requesting physician: Carmine E Sheet - Chief Complaint Left leg swelling redness x 1 day - History of Present Illness Patient is 79-year-old male presenting to the ER on 04/16/2020 for evaluation of left lower extremity swelling and redness that has been going on for a day before he presented to the hospital patient denies having any trauma patient was noticed to have increasing left lower extremity swelling and redness diffuse also have a mild aching pain intensity 3-4 out of 10 and no radiation wound or any drainage also noted to be slightly confused and did have a fever with the symptoms the patient was evaluated by the physician on arrival to the er the patient did have a fever of 101 Fahrenheit. Did have white count of 14.3 patient did have lower extremity Dopplers was negative for any DVT the patient was started on vancomycin pharmacy to dose infection disease was considered last night for further management of antibiotic therapy Review of Systems Positive point has been mentioned in the HPI rest of the systems are negative Past Medical History Past Medical History: Atrial Fibrillation, Cancer, GERD/Reflux, Hyperlipidemia, Osteoarthritis (OA), Prostate Disorder, Sleep Apnea/CPAP/BIPAP, Thyroid Disorder Additional Past Medical History / Comment(s): Hypothyroid, hyperactive bladder, A. fib. SEPTIC ARTHRITIS. History of Any Multi-Drug Resistant Organisms: None Reported Past Surgical History: Heart Catheterization, Tonsillectomy Additional Past Surgical History / Comment(s): radioactive seed implants for prostate cancer, cataracts removed-lens implants, bladder control device implanted 07-10-17 and removed 07-18-18, colonoscopy/polypectomy-benign Past Anesthesia/Blood Transfusion Reactions: No Reported Reaction Additional Past Anesthesia/Blood Transfusion Reaction / Comm: has never had any blood transfusion Past Psychological History: No Psychological Hx Reported Past Alcohol Use History: Daily Past Drug Use History: None Reported - Past Family History Mother Family Medical History: Cancer Additional Family Medical History / Comment(s): from colon cancer at age 60 Father Family Medical History: Liver Disease Additional Family Medical History / Comment(s): from cirrhosis of the liver at age 59 they felt it was d/t farming chemicals 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 Medications and Allergies Home Medications Medication Instructions Recorded Confirmed Type Levothyroxine Sodium [Levoxyl] 75 mcg PO DAILY@0700 07/22/18 04/16/20 History Fluticasone Nasal [place] [Flonase 1 spr EA NOSTRIL HS 06/24/19 04/16/20 History Nasal [place]] Aspirin 325 mg PO BID #60 tab 06/30/19 04/16/20 Rx Allergies Allergy/AdvReac Type Severity Reaction Status Date / Time [id number] Reductase AdvReac Severe Rash/Hives Verified 04/16/20 12:53 Inhibitor Physical Exam Vitals: Vital Signs Temp Pulse Resp BP Pulse Ox 04/20/20 14:50 98.2 F 76 18 170/80 97 04/20/20 07:00 98.4 F 70 18 146/70 96 04/20/20 02:39 98.2 F 70 135/78 97 04/19/20 20:34 98.6 F 75 155/78 96 Intake and Output 04/20/20 04/20/20 04/20/20 06:59 14:59 22:59 Other: Voiding Method Toilet Toilet Toilet Urinal Urinal Urinal Diaper Diaper Diaper # Voids 1 GENERAL DESCRIPTION: An elderly male lying in bed, no distress. No tachypnea or accessory muscle of respiration use. HEENT: Shows Pallor , no scleral icterus. Oral mucous membrane is dry. No pharyngeal erythema or thrush NECK: Trachea central, no thyromegaly. LUNGS: Unlabored breathing. Clear to auscultation anteriorly. No wheeze or crackle. HEART: S1, S2, regular rate and rhythm. No loud murmur ABDOMEN: Soft, no tenderness , guarding or rigidity, no organomegaly EXTREMITIES: Right leg with diffuse swelling and redness upper wound or any drainage slightly warm to touch. SKIN: No rash, no masses palpable. NEUROLOGICAL: The patient is awake, alert, oriented x3, mood and affect normal. Results CBC & Chem 7: 04/19/20 05:24 04/20/20 06:34 Labs: Abnormal Lab Results - Last 24 Hours (Table) 04/20/20 Range/Units 06:34 Sodium 134 L (137-145) mmol/L Calcium 8.3 L (8.4-10.2) mg/dL Microbiology - Last 24 Hours (Table) 04/16/20 10:13 Blood Culture - Preliminary Blood No Growth after 96 hours Assessment and Plan Assessment: 1- patient presented to hospital with sepsis in this patient did have a fever and elevated white count patient did have diffuse swelling redness of the right lower extremity likely right lower eczema cellulitis and likely streptococcal disease clinically doubt MRSA or gram-negative infection (1) Left leg cellulitis Current Visit: Yes Status: Acute Code(s): L03.116 - CELLULITIS OF LEFT LOWER LIMB SNOMED Code(s): 057072734 (2) Sepsis Current Visit: Yes Status: Acute Code(s): A41.9 - SEPSIS, UNSPECIFIED ORGANISM SNOMED Code(s): 50012471 Plan: 1- discontinue vancomycin 2-start the patient cefazolin 2 g every 8 hours and the patient continued to improve to finish therapy with oral Keflex 3-Booker wrap to the right leg from just above the toe to below the knee We will follow on clinical condition and cultures to further adjust medication if needed Thank you for this consultation will follow this patient with you Time with Patient: Greater than 30
[2020-04-21 01:17] LABS: BUN/Creat Ratio 17.14 Ratio (12.00-20.00)
[2020-04-21 07:49] VITALS: BP 153/88; PULSE 81; TEMP 98.6
[2020-04-21] MEDS: ASPIRIN 325 MG TAB PO SCH (08:29)
[2020-04-21] MEDS: amLODIPine 5 MG TAB PO SCH (08:29)
[2020-04-21] MEDS: LEVOTHYROXINE 75 MCG TAB PO SCH (08:29)
[2020-04-21] MEDS: ENOXAPARIN 40 MG/0.4 ML SYRINGE SQ SCH (08:29)
[2020-04-21] MEDS: FAMOTIDINE 20 MG TAB PO SCH (08:29)
[2020-04-21 10:19] LABS: African American GFR (CKD) 97.8 (60.0-200.0); Calcium 8.3 mg/dL (8.7-10.3); Non-African American GFR(CKD) 84.4 (60.0-200.0); Potassium 3.6 mmol/L (3.5-5.5)
--- NOTE | 2020-04-21 16:10 | PN ---
PROGRESS NOTE DATE OF SERVICE: 04/21/2020 REASON FOR FOLLOWUP: Left lower extremity cellulitis. INTERVAL HISTORY: The patient was seen on rounds this afternoon. The patient has been afebrile. The patient is feeling better. Left leg pain, swelling and redness has improved. Anxious to go home. No chest pain, shortness of breath or cough. No abdominal pain, no diarrhea. PHYSICAL EXAMINATION: Blood pressure 153/88 with a pulse of 81, temperature 98.3, he is 94% on room air. General description is an elderly male, up in the bed, in no distress. RESPIRATORY SYSTEM: Unlabored breathing, clear to auscultation anteriorly. HEART: S1, S2. Regular rate and rhythm. ABDOMEN: Soft, no tenderness. Left leg swelling is improved. LABS: Creatinine 0.8. DIAGNOSTIC IMPRESSION AND PLAN: Patient has acute left lower extremity cellulitis. This patient has shown overall clinical improvement on cefazolin. He will be switched over to Keflex 500 mg q.6 hours. Prescription was sent to the pharmacy. Advised to continue Booker wrap to keep the swelling down and close outpatient followup. MMODL / IJN: [id number] /
--- NOTE | 2020-04-22 08:54 | CDI ---
Documentation Clarification Form Date: 04/22/20 From: Annemarie Cee Phone: If you have a question about this query, please contact Bernie Glover Food And Nutrition Services Assistant at [phone] between 8am and 5pm. Admit Date: 04/18/20 Discharge Date:04/21/20 Patient Name: Ye Urbano Visit Number: [id number] ATTENTION: The Clinical Documentation Specialists (CDI) and [facility] Coding Staff appreciate your assistance in clarifying documentation. Please respond to the clarification below the line at the bottom and electronically sign. The CDI & [facility] Coding staff will review the response and follow-up if needed. Please note: Queries are made part of the Legal Health Record. If you have any questions, please contact the author of this message via ITS. Dear Dr. Murray Confusion is documented in the ED note and in the infectious disease consult note on 04/20. History/Risk Factors: Sepsis, left lower extremity cellulitis, MILLER, a-fib Clinical Indicators: Confusion Labs: WBC 14.3, 88% neutrophils, sodium 133, BUN 31, Creatinine 1.12, lactic acid 2.5, creatine kinase 241 Treatment: 1 liter NS bolus then at 130 mls/hr, IV vancomycin, IV Rocephin In your professional opinion, please clarify the etiology of the Confusion, if known. Delirium (specify cause): Dementia (if know, specify Type and if with/without Behavioral Disturbance) Encephalopathy (specify Type and Underlying Medical Illness) Other condition (please specify) Unable to determine Unable to determine MTDD
== END 2020-04-21 14:56 | disposition home or self-care (01) | DRG 872 ==
LOC: EC 09:37 → 6NMEDSUR 12:10 → 4SSUR 15:53 → OBSVTOIN 04-18 13:17
PROVIDERS: ADMIT Internal Medicine; ATTEND Internal Medicine
DX: A40.9 Streptococcal sepsis, unspecified (principal); E87.2 Acidosis; L03.116 Cellulitis of left lower limb; L03.314 Cellulitis of groin; N17.9 Acute kidney failure, unspecified; R65.20 Severe sepsis without septic shock; I48.91 Unspecified atrial fibrillation; D75.89 Other specified diseases of blood and blood-forming organs; R41.0 Disorientation, unspecified; E03.9 Hypothyroidism, unspecified; E78.5 Hyperlipidemia, unspecified; I51.7 Cardiomegaly; M19.90 Unspecified osteoarthritis, unspecified site; N32.81 Overactive bladder; G47.30 Sleep apnea, unspecified; K21.9 Gastro-esophageal reflux disease without esophagitis; Z20.828 Contact with and (suspected) exposure to other viral communicable diseases; L30.9 Dermatitis, unspecified; Z79.82 Long term (current) use of aspirin; Z79.890 Hormone replacement therapy; Z79.899 Other long term (current) drug therapy; Z88.8 Allergy status to other drugs, medicaments and biological substances; Z90.89 Acquired absence of other organs; Z85.46 Personal history of malignant neoplasm of prostate; Z86.010 Personal history of colon polyps; Z92.3 Personal history of irradiation; Z98.42 Cataract extraction status, left eye; Z98.41 Cataract extraction status, right eye; Z96.1 Presence of intraocular lens; Z98.890 Other specified postprocedural states; Z80.0 Family history of malignant neoplasm of digestive organs; Z83.79 Family history of other diseases of the digestive system
CPT/HCPCS: 36415; 71046; 80048; 80053; 80202; 82550; 83605; 83735; 84484; 85025; 85610; 85730; 87040; 87635; 93005; 96360; 99285

== ENCOUNTER 2020-11-01 16:30 | Inpatient (IN) | payer MEDICARE, BC ==
[2020-11-01] MEDS ORDERED: NITROGLYCERIN OINT 1 INCH/GM PACKET TOPICAL STA (16:52)
[2020-11-01] MEDS ORDERED: ASPIRIN 81 MG PO STA (16:52)
[2020-11-01] MEDS ORDERED: SODIUM CHLORIDE 0.9% 500 ML 500 ML IV STA (16:52)
[2020-11-01 17:10] LABS: Basophils % (A) 0 %; Eosinophils # (A) 0.1 k/uL (0-0.7); Eosinophils % (A) 1 %; HCT 47.3 % (39.0-53.0); HGB 15.5 gm/dL (13.0-17.5); Lymphocytes # (A) 1.4 k/uL (1.0-4.8); Lymphocytes % (A) 16 %; MCH 31.2 pg (25.0-35.0); MCHC 32.8 g/dL (31.0-37.0); MCV 95.3 fL (80.0-100.0); Mean Platelet Volume 7.9; Monocytes # (A) 0.6 k/uL (0-1.0); Monocytes % (A) 7 %; Neutrophils # (A) 6.6 k/uL (1.3-7.7); Neutrophils % (A) 76 %; Platelet Count 187 k/uL (150-450); RBC 4.96 m/uL (4.30-5.90); RDW 13.7 % (11.5-15.5); WBC 8.8 k/uL (3.8-10.6)
[2020-11-01 17:15] LABS: Partial Thromboplastin Time 23.3 sec (22.0-30.0); Prothrombin Time 10.5 sec (9.0-12.0)
[2020-11-01 17:19] LABS: ALT 32 U/L (4-49); AST 43 U/L (17-59); African American GFR (CKD) >90 (>60 ml/min/1.73 sqM); Albumin 4.6 g/dL (3.5-5.0); Alkaline Phosphatase 72 U/L (38-126); Anion Gap 9 mmol/L; Blood Urea Nitrogen 17 mg/dL (9-20); Calcium 9.6 mg/dL (8.4-10.2); Carbon Dioxide 26 mmol/L (22-30); Chloride 102 mmol/L (98-107); Glucose 106 mg/dL (74-99); Magnesium 2.1 mg/dL (1.6-2.3); Non-African American GFR(CKD) 81 (>60 ml/min/1.73 sqM); Potassium 4.6 mmol/L (3.5-5.1); Sodium 137 mmol/L (137-145); Total Bilirubin 0.8 mg/dL (0.2-1.3); Total Protein 7.1 g/dL (6.3-8.2)
--- NOTE | 2020-11-01 17:23 | ED ---
General Adult HPI - General Chief complaint: Chest Pain Stated complaint: chest pain Time Seen by Provider: 11/01/20 16:35 Source: patient, family, RN notes reviewed, old records reviewed Mode of arrival: ambulatory Limitations: no limitations - History of Present Illness Initial comments: This is an 80-year-old male who presents to the emergency department complaining some chest pain across top of his chest. Patient states been intermittent for about 2 weeks. Patient states every time he seems to get up or walking makes it worse per patient states he has noticed increased shortness of breath as well. Patient states the pain is not radiating anywhere. Patient denies any diaphoretic episodes. Patient denies any palpitations. Patient denies any recent fever chills or cough per patient denies any swelling to legs or calf tenderness per patient denies abdominal pain patient denies nausea vomiting diarrhea. Patient denies any lightheadedness or dizziness. Patient states currently it is a little bit of chest discomfort - Related Data Home Medications Medication Instructions Recorded Confirmed Levothyroxine Sodium [Levoxyl] 75 mcg PO DAILY 07/22/18 11/01/20 Pantoprazole Sodium [Protonix] 40 mg PO DAILY 11/01/20 11/01/20 Previous Rx's Medication Instructions Recorded Aspirin 325 mg PO BID #60 tab 06/30/19 Allergies Allergy/AdvReac Type Severity Reaction Status Date / Time Egpuujr-Rpe-Nrc Reductase AdvReac Severe Rash/Hives Verified 11/01/20 17:03 Inhibitor Review of Systems ROS Statement: Those systems with pertinent positive or pertinent negative responses have been documented in the HPI. ROS Other: All systems not noted in ROS Statement are negative. Past Medical History Past Medical History: Atrial Fibrillation, Cancer, GERD/Reflux, Hyperlipidemia, Osteoarthritis (OA), Prostate Disorder, Sleep Apnea/CPAP/BIPAP, Thyroid Disorder Additional Past Medical History / Comment(s): Hypothyroid, hyperactive bladder, A. fib. SEPTIC ARTHRITIS. History of Any Multi-Drug Resistant Organisms: None Reported Past Surgical History: Heart Catheterization, Tonsillectomy Additional Past Surgical History / Comment(s): radioactive seed implants for prostate cancer, cataracts removed-lens implants, bladder control device implanted 07-10-17 and removed 07-18-18, colonoscopy/polypectomy-benign Past Anesthesia/Blood Transfusion Reactions: No Reported Reaction Additional Past Anesthesia/Blood Transfusion Reaction / Comment(s): has never had any blood transfusion Past Psychological History: No Psychological Hx Reported Smoking Status: Never smoker Past Alcohol Use History: Daily Past Drug Use History: None Reported - Past Family History Mother Family Medical History: Cancer Additional Family Medical History / Comment(s): from colon cancer at age 60 Father Family Medical History: Liver Disease Additional Family Medical History / Comment(s): from cirrhosis of the liver at age 59 they felt it was d/t farming chemicals 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 General Exam - General Exam Comments Initial Comments: GENERAL: Patient is well-developed and well-nourished. Patient is nontoxic and well- hydrated and is in mild distress. ENT: Neck is soft and supple. No significant lymphadenopathy is noted. Oropharynx is clear. Moist mucous membranes. Neck has full range of motion without eliciting any pain. EYES: The sclera were anicteric and conjunctiva were pink and moist. Extraocular movements were intact and pupils were equal round and reactive to light. Eyelids were unremarkable. PULMONARY: Unlabored respirations. Good breath sounds bilaterally. No audible rales rhonchi or wheezing was noted. CARDIOVASCULAR: There is a regular rate and rhythm without any murmurs gallops or rubs. ABDOMEN: Soft and nontender with normal bowel sounds. SKIN: Skin is clear with no lesions or rashes and otherwise unremarkable. NEUROLOGIC: Patient is alert and oriented x3. Cranial nerves II through XII are grossly intact. Motor and sensory are also intact. Normal speech, volume and content. Symmetrical smile. MUSCULOSKELETAL: Normal extremities with adequate strength and full range of motion. No lower extremity swelling or edema. No calf tenderness. LYMPHATICS: No significant lymphadenopathy is noted PSYCHIATRIC: Normal psychiatric evaluation. Limitations: no limitations Course Vital Signs 11/01/20 16:34 Temperature 98 F Pulse Rate 64 Respiratory 18 Rate Blood Pressure 169/90 O2 Sat by Pulse 99 Oximetry Medical Decision Making - Medical Decision Making EKG shows atrial fibrillation at 74 bpm QRS is 96 QT interval 400 QTC is 444. Patient's EKG shows no ST segment elevation or depression Chest x-ray shows no acute abnormality. Because the patient had intermittent chest pain exacerbated by exertion I classified him as unstable angina started heparin. I spoke with some physicians agreed to admit the patient admitted the patient I consult cardiology continued heparin has been Nitropaste on the floor. - Lab Data Result diagrams: 11/01/20 16:58 11/01/20 16:58 Lab Results 11/01/20 11/01/20 11/01/20 Range/Units 16:58 16:58 16:58 WBC 8.8 (3.8-10.6) k/uL RBC 4.96 (4.30-5.90) m/uL Hgb 15.5 (13.0-17.5) gm/dL Hct 47.3 (39.0-53.0) % MCV 95.3 (80.0-100.0) fL MCH 31.2 (25.0-35.0) pg MCHC 32.8 (31.0-37.0) g/dL RDW 13.7 (11.5-15.5) % Plt Count 187 (150-450) k/uL MPV 7.9 Neutrophils % 76 % Lymphocytes % 16 % Monocytes % 7 % Eosinophils % 1 % Basophils % 0 % Neutrophils # 6.6 (1.3-7.7) k/uL Lymphocytes # 1.4 (1.0-4.8) k/uL Monocytes # 0.6 (0-1.0) k/uL Eosinophils # 0.1 (0-0.7) k/uL Basophils # 0.0 (0-0.2) k/uL PT 10.5 (9.0-12.0) sec INR 1.0 (<1.2) APTT 23.3 (22.0-30.0) sec Sodium 137 (137-145) mmol/L Potassium 4.6 (3.5-5.1) mmol/L Chloride 102 (98-107) mmol/L Carbon Dioxide 26 (22-30) mmol/L Anion Gap 9 mmol/L BUN 17 (9-20) mg/dL Creatinine 0.88 (0.66-1.25) mg/dL Est GFR (CKD-EPI)AfAm >90 (>60 ml/min/1.73 sqM) Est GFR (CKD-EPI)NonAf 81 (>60 ml/min/1.73 sqM) Glucose 106 H (74-99) mg/dL Calcium 9.6 (8.4-10.2) mg/dL Magnesium 2.1 (1.6-2.3) mg/dL Total Bilirubin 0.8 (0.2-1.3) mg/dL AST 43 (17-59) U/L ALT 32 (4-49) U/L Alkaline Phosphatase 72 (38-126) U/L Troponin I (0.000-0.034) ng/mL NT-Pro-B Natriuret Pep pg/mL Total Protein 7.1 (6.3-8.2) g/dL Albumin 4.6 (3.5-5.0) g/dL 11/01/20 11/01/20 Range/Units 16:58 16:58 WBC (3.8-10.6) k/uL RBC (4.30-5.90) m/uL Hgb (13.0-17.5) gm/dL Hct (39.0-53.0) % MCV (80.0-100.0) fL MCH (25.0-35.0) pg MCHC (31.0-37.0) g/dL RDW (11.5-15.5) % Plt Count (150-450) k/uL MPV Neutrophils % % Lymphocytes % % Monocytes % % Eosinophils % % Basophils % % Neutrophils # (1.3-7.7) k/uL Lymphocytes # (1.0-4.8) k/uL Monocytes # (0-1.0) k/uL Eosinophils # (0-0.7) k/uL Basophils # (0-0.2) k/uL PT (9.0-12.0) sec INR (<1.2) APTT (22.0-30.0) sec Sodium (137-145) mmol/L Potassium (3.5-5.1) mmol/L Chloride (98-107) mmol/L Carbon Dioxide (22-30) mmol/L Anion Gap mmol/L BUN (9-20) mg/dL Creatinine (0.66-1.25) mg/dL Est GFR (CKD-EPI)AfAm (>60 ml/min/1.73 sqM) Est GFR (CKD-EPI)NonAf (>60 ml/min/1.73 sqM) Glucose (74-99) mg/dL Calcium (8.4-10.2) mg/dL Magnesium (1.6-2.3) mg/dL Total Bilirubin (0.2-1.3) mg/dL AST (17-59) U/L ALT (4-49) U/L Alkaline Phosphatase (38-126) U/L Troponin I <0.012 (0.000-0.034) ng/mL NT-Pro-B Natriuret Pep 1170 pg/mL Total Protein (6.3-8.2) g/dL Albumin (3.5-5.0) g/dL Critical Care Time Critical Care Time: Yes Total Critical Care Time: 35 Disposition Clinical Impression: Unstable angina pectoris Disposition: ADMITTED IP TO THIS HOSP Referrals: Cristo Lyn DO [Primary Care Provider] - 1-2 days Time of Disposition: 18:07
--- NOTE | 2020-11-01 17:23 | XR ---
EXAMINATION TYPE: XR chest 2V DATE OF EXAM: 11/01/2020 COMPARISON: 04/16/2020 HISTORY: Chest pain TECHNIQUE: 2 views FINDINGS: There is no heart failure nor confluent pneumonic infiltrate. Heart appears borderline enla rged. There are no hilar masses. There are chest leads. Bony thorax is intact. IMPRESSION: Borderline cardiomegaly. No heart failure seen. No significant change compared to old exa m.
[2020-11-01] MEDS ORDERED: HEPARIN SODIUM 1,000 UN/ML (10ML VL) IV STA (18:04)
[2020-11-01] MEDS ORDERED: NITROGLYCERIN SL TABS 0.4 MG TAB SUBLINGUAL PRN (18:12)
[2020-11-01] MEDS: HEPARIN SOD,PORK IN 0.45% NACL 25,000 UNIT in 0.45% NACL 1 250ML.BAG IV SCH (18:38)
--- NOTE | 2020-11-01 22:56 | P.HPIM ---
History of Present Illness H&P Date: 11/01/20 The patient is an 80-year-old male with a PMH of hypothyroidism who presented to the emergency room with complaints of chest discomfort and shortness of breath. The patient reports that his symptoms started roughly a month ago when he noticed a began noticing gradually worsening exertional dyspnea. He reports that his excess tolerance worsened to the point where even minimal activity around the house was causing him to get winded. He reported that occasionally with his exertion he would also notice a substernal pressure and sharp-like discomfort, nonradiating, 5-6 out of 10, which would resolve with rest. He denied associated nausea, vomiting, diaphoresis, or palpitations. Earlier today , he was climbing down to his basement when simply walking down the stairs caused him to feel extremely short of breath at which time his activated EMS. He reported occasional resting dyspnea along with the chest pain which lasts a few seconds. At time of interview, he denied active complaints. Reported that he experienced the symptoms when he tried to get up to use the restroom. The patient underwent an extensive evaluation in the emergency room with an EKG showing A. fib with an incomplete right bundle-branch block along with Q waves in the inferior leads at 74 bpm. The patient denied any prior history of A. fib. Chest x-ray revealed borderline cardiomegaly with no other acute abnormalities. Laboratory evaluation revealed a troponin of less than 0.012, and proBNP 1170. Review of systems: Pertinent positives and negatives as discussed in HPI, a complete review of systems was performed and all other systems are negative. Physical examination: General: non toxic, no distress, appears at stated age, obese Derm: no unusual rashes/lesions no unusual ecchymoses, warm, dry Head: atraumatic, normocephalic, symmetric Eyes: EOMI, no lid lag, anicteric sclera, pupils equal round reactive to light ENT: Nose and ears atraumatic, no thrush, no pharyngeal erythema Neck: No thyromegaly, no cervical lymphadenopathy, trachea midline, supple Mouth: no lip lesion, mucus membranes moist Cardiovascular: S1S2 reg, no murmur, positive posterior tibial pulse bilateral, no edema, capillary refill less than 2 seconds Lungs: CTA bilateral, no rhonchi, no rales , no accessory muscle use Abdominal: soft, nontender to palpation, no guarding, no appreciable organomegaly, normal bowel sounds Ext: no gross muscle atrophy, muscle strength 5 out of 5 in all 4 extremities grossly, no contractures, Neuro: CN II-XI grossly intact, light touch intact all 4 extremities, finger to nose within normal limits, Psych: Alert, oriented, appropriate affect Assessment/plan Unstable angina -Continue with heparin infusion -Trend troponin -Continue with aspirin -Cardiology consult -Cardiac monitoring -Nitroglycerin when necessary -Echocardiogram Afib, newly diagnosed -May be due to on-going cardiac episode -C/w Heparin infusion -Cardiology consulted Hypothyroidism -Continue home levothyroxine dose DVT prophylaxis -Heparin The patient is admitted with an anticipated less than 2 midnight stay for evaluation of unstable angina CODE STATUS: Full Code Discussed with: Patient Anticipated discharge date: in am Anticipated discharge place: Home A total of 35 minutes was spent on the care of this complex patient more than 50% of the time was spent in counseling and care coordination. Past Medical History Past Medical History: Atrial Fibrillation, Cancer, GERD/Reflux, Hyperlipidemia, Osteoarthritis (OA), Prostate Disorder, Sleep Apnea/CPAP/BIPAP, Thyroid Disorder Additional Past Medical History / Comment(s): Hypothyroid, hyperactive bladder, A. fib. SEPTIC ARTHRITIS. diverticulosis History of Any Multi-Drug Resistant Organisms: None Reported Past Surgical History: Heart Catheterization, Tonsillectomy Additional Past Surgical History / Comment(s): radioactive seed implants for prostate cancer, cataracts removed-lens implants, bladder control device implanted 07-10-17 and removed 07-18-18, colonoscopy/polypectomy-benign. bilateral hip replaced. bone infection post op right hip. Past Anesthesia/Blood Transfusion Reactions: No Reported Reaction Additional Past Anesthesia/Blood Transfusion Reaction / Comment(s): has never had any blood transfusion Past Psychological History: No Psychological Hx Reported Smoking Status: Former smoker Past Alcohol Use History: Daily Additional Past Alcohol Use History / Comment(s): started smoking at age 18(1957) abd quit 1961. smoked 1/2 ppd, pt drinks 1-2 glasses of wine per day. take thc pills at night for sleep Past Drug Use History: None Reported - Past Family History Mother Family Medical History: Cancer Additional Family Medical History / Comment(s): from colon cancer at age 60 Father Family Medical History: Liver Disease Additional Family Medical History / Comment(s): from cirrhosis of the liver at age 59 they felt it was d/t farming chemicals 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 Medications and Allergies Home Medications Medication Instructions Recorded Confirmed Type Levothyroxine Sodium [Levoxyl] 75 mcg PO DAILY 07/22/18 11/01/20 History Aspirin 325 mg PO BID #60 tab 06/30/19 11/01/20 Rx Pantoprazole Sodium [Protonix] 40 mg PO DAILY 11/01/20 11/01/20 History Allergies Allergy/AdvReac Type Severity Reaction Status Date / Time [id number]-Zfc Reductase AdvReac Severe Rash/Hives Verified 11/01/20 17:03 Inhibitor Physical Exam Vitals: Vital Signs Temp Pulse Pulse Resp BP BP Pulse Ox 11/01/20 21:41 98.2 F 74 17 166/84 95 11/01/20 18:43 84 18 153/86 97 11/01/20 16:34 98 F 64 18 169/90 99 Intake and Output 11/01/20 11/01/20 11/01/20 06:59 14:59 22:59 Other: # Voids 3 Weight 99.79 kg Results CBC & Chem 7: 11/01/20 16:58 11/01/20 16:58 Labs: Abnormal Lab Results - Last 24 Hours (Table) 11/01/20 Range/Units 16:58 Glucose 106 H (74-99) mg/dL Thrombosis Risk Factor Assmnt - Choose All That Apply Any of the Below Risk Factors Present?: Yes Each Factor Represents 1 point: Obesity (BMI >25) Other Risk Factors: Yes Each Risk Factor Represents 3 Points: Age 75 years or older Other congenital or acquired thrombophilia - If yes, enter type in comment: No Thrombosis Risk Factor Assessment Total Risk Factor Score: 4 Thrombosis Risk Factor Assessment Level: Moderate Risk
[2020-11-01] MEDS: NITROGLYCERIN OINT 1 INCH/GM PACKET TOPICAL SCH (23:01)
[2020-11-02] MEDS: NITROGLYCERIN OINT 1 INCH/GM PACKET TOPICAL SCH ×3 (05:54→20:15)
[2020-11-02] MEDS ORDERED: SODIUM CHLORIDE 0.9% 1,000 ML in EMPTY BAG 1 BAG IV ONE (08:53)
[2020-11-02] MEDS ORDERED: ALPRAZolam 0.5 MG TAB PO PRN (08:53)
[2020-11-02] MEDS ORDERED: ATORVASTATIN 80 MG TAB PO STA (08:53)
[2020-11-02] MEDS ORDERED: ALPRAZolam 0.25 MG TAB PO PRN (08:53)
[2020-11-02] MEDS ORDERED: ASPIRIN 325 MG TAB PO SCH (09:00)
[2020-11-02 09:39] LABS: Glucose,Whole Blood 100 mg/dL (75-99)
[2020-11-02] MEDS ORDERED: VERAPAMIL 2.5 MG/ML 2 ML AMP ONE (10:36)
[2020-11-02] MEDS ORDERED: LIDOCAINE 1% INJ 10MG/ML (20 ML MDV) ONE (10:37)
[2020-11-02] MEDS ORDERED: HEPARIN SODIUM 1,000 UN/ML (10ML VL) ONE (10:48)
[2020-11-02] MEDS ORDERED: IV FLUID CONTINUATION 800 ML IV ONE (10:54)
[2020-11-02] MEDS ORDERED: MIDAZOLAM 2 MG/2 ML VIAL IV ONE (11:17)
[2020-11-02] MEDS ORDERED: LIDOCAINE 1% INJ 10MG/ML (20 ML MDV) SQ ONE (11:21)
[2020-11-02] MEDS: VERAPAMIL SYRINGE (5 MG/10 ML) INTRAARTER ONE ×2 (11:25→11:42)
[2020-11-02 11:35] LABS: Chol/HDL Ratio 3.54
[2020-11-02] MEDS ORDERED: IOPAMIDOL-370 100ML BTL INJ ONE (11:43)
--- NOTE | 2020-11-02 11:50 | P.CRDCN ---
History of Present Illness History of present illness: HISTORY OF PRESENTING ILLNESS This is a pleasant 80-year-old male past medical history significant for atrial fibrillation, coronary artery disease with previous PCI (known details), hypertension, hypothyroidism. He follows in the office with a Program Scheduler in [facility]. We have been asked to see in consultation for chest pain. The patient reports that his symptoms started roughly a month ago when he noticed a began noticing gradually worsening exertional dyspnea. He reports that his excess tolerance worsened to the point where even minimal activity around the house was causing him to get winded. He had occasional exertional chest pain substernal, anterior chest, non-radiating. He went to his jack spinner. They did an EKG which showed atrial fibrillation, no significant changes, she sent him up for an echocardiogram and stress test in early November. Yesterday the patient sta rted having increased dyspnea on exertion with minimal activity and had increased chest pain across his anterior chest up to his shoulders. He was climbing down to his basement when simply walking down the stairs caused him to feel extremely short of breath at which time his called an ambulance and patient was brought to the emergency department. Patient denies nausea, diaphoresis, or palpitations. Denies symptoms of orthopnea or PND. He has a history of atrial fibrillation, his jack spinner discussed an anticoagulation, however, the patient refused at that time. Current home cardiac medications include aspirin daily. Patient states his reaction to statin is not an allergy it is a side effect of muscle aches. He is a former smoker quit in 1960s. He does drink 1-2 glasses of wine per day. DIAGNOSTICS First EKG reveals atrial fibrillation, right bundle branch block, HR 74, no significant ST -T wave abnormalities Second EKG this morning revealed atrial fibrillation, right bundle branch block, HR 68, now with new T wave inversions in leads V2-V6. Last Cardiac Catheterization- Unknown Details- Patient states about 17 years ago with a stent was placed Telemetry tracings indicate sinus mechanism this morning HR 60s, However was in atrial fibrillation overnight ventricular rates controlled Chest xray heart appears borderline enlarged. No significant change compared to prior. Laboratory reviewed, CBC unremarkable, Pro BNP- 1,170, Troponin trend 0.012-->0.03-->0.98 Sodium 137, K 4.6, sCr 0.88, BUN 17 covid-19 negative REVIEW OF SYSTEMS At the time of my exam: CONSTITUTIONAL: Denies fever or chills. CARDIOVASCULAR: + chest pain, +shortness of breath, +MCDOWELL, Denies orthopnea, PND or palpitations. RESPIRATORY: Denies cough. GASTROINTESTINAL: Denies abdominal pain, diarrhea, constipation, nausea or vomiting. MUSCULOSKELETAL: Denies myalgias. NEUROLOGIC: Denies numbness, tingling, headacbe or weakness. ENDOCRINE: Denies fatigue, weight change, polydipsia or polyurina. GENITOURINARY: Denies burning, hematuria or urgency with micturation. HEMATOLOGIC: Denies history of anemia or bleeding. PHYSICAL EXAMINATION Blood pressure 135/78 heart rate 65 afebrile and maintaining oxygen saturation 96% on room air CONSTITUTIONAL: No apparent distress. HEENT: Head is normocephalic. Pupils are equal, round. Sclerae anicteric. Mucous membranes of the mouth are moist. No JVD. No carotid bruit. CHEST EXAMINATION: Lungs are clear to auscultation. No chest wall tenderness is noted on palpation or with deep breathing. HEART EXAMINATION: Regular rate and rhythm. S1, S2 heard. No murmurs, gallops or rub. ABDOMEN: Soft, nontender. Positive bowel sounds. EXTREMITIES: 2+ peripheral pulses, no lower extremity edema and no calf tenderness. SKIN:intact NEUROLOGIC EXAMINATION: Patient is awake, alert and oriented x3. ASSESSMENT Unstable Angina, patient with crescendo angina . With EKG changes this morning as stated above Elevated troponin Atrial fibrillation- most likely paroxysmal with patient's description of his A fib- currently in sinus mechanism at time of exam. Patient refused anticoagulation in the past. [id number] score 4 History of coronary artery disease with previous PCI per patient- unknown details Hypertension - not on medication at home Hypothyroidism PLAN -We recommend cardiac catheterization. Patient is agreeable. Will perform today with Dr. Richardson. -I have discussed the risks, benefits and alternative therapies for the above- mentioned procedure and for both sedation/analgesia as well as necessary blood product administration, if indicated, as they pertain to this patient. The patient has indicated understanding and acceptance of the risks and procedures discussed. Questions have been answered appropriately and he is agreeable to move forward with the above-stated procedure. -Obtain 2D echocardiogram and doppler study to assess cardiac structure and function. -Continue heparin drip for anticoagulation -Will start aspirin 81mg daily and statin -We will discuss hypertension management and rn long term care anticoagulation with patient. He has been non-compliant with medical therapy in the past -Further recommendations based on clinical course Nurse Practitioner note has been reviewed, I agree with a documented findings and plan of care. Patient was seen and examined. Past Medical History Past Medical History: Atrial Fibrillation, Cancer, GERD/Reflux, Hyperlipidemia, Osteoarthritis (OA), Prostate Disorder, Sleep Apnea/CPAP/BIPAP, Thyroid Disorder Additional Past Medical History / Comment(s): Hypothyroid, hyperactive bladder, A. fib. SEPTIC ARTHRITIS. diverticulosis History of Any Multi-Drug Resistant Organisms: None Reported Past Surgical History: Heart Catheterization, Tonsillectomy Additional Past Surgical History / Comment(s): radioactive seed implants for prostate cancer, cataracts removed-lens implants, bladder control device implanted 07-10-17 and removed 07-18-18, colonoscopy/polypectomy-benign. bilateral hip replaced. bone infection post op right hip. Past Anesthesia/Blood Transfusion Reactions: No Reported Reaction Additional Past Anesthesia/Blood Transfusion Reaction / Comment(s): has never had any blood transfusion Past Psychological History: No Psychological Hx Reported Smoking Status: Former smoker Past Alcohol Use History: Daily Additional Past Alcohol Use History / Comment(s): started smoking at age 18(1957) abd quit 1961. smoked 1/2 ppd, pt drinks 1-2 glasses of wine per day. take thc pills at night for sleep Past Drug Use History: None Reported - Past Family History Mother Family Medical History: Cancer Additional Family Medical History / Comment(s): from colon cancer at age 60 Father Family Medical History: Liver Disease Additional Family Medical History / Comment(s): from cirrhosis of the liver at age 59 they felt it was d/t farming chemicals 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 Medications and Allergies Home Medications Medication Instructions Recorded Confirmed Type Levothyroxine Sodium [Levoxyl] 75 mcg PO DAILY 07/22/18 11/01/20 History Aspirin 325 mg PO BID #60 tab 06/30/19 11/01/20 Rx Pantoprazole Sodium [Protonix] 40 mg PO DAILY 11/01/20 11/01/20 History Allergies Allergy/AdvReac Type Severity Reaction Status Date / Time [id number] Reductase AdvReac Severe Rash/Hives Verified 11/01/20 17:03 Inhibitor Physical Exam Vitals: Vital Signs Temp Pulse Pulse Resp BP BP Pulse Ox 11/02/20 08:53 98.6 F 65 16 135/78 96 11/02/20 07:00 98.6 F 65 16 135/78 96 11/02/20 02:00 98.0 F 97 17 164/76 97 11/01/20 21:41 98.2 F 74 17 166/84 95 11/01/20 18:43 84 18 153/86 97 11/01/20 16:34 98 F 64 18 169/90 99 Intake and Output 11/01/20 11/02/20 11/02/20 22:59 06:59 14:59 Intake Total 122.667 Balance 122.667 Intake: Intake, IV Titration 122.667 Amount Heparin Sod,Pork in 0.45% 122.667 NaCl 25,000 unit In 0.45 % NaCl 1 250ml.bag @ 10. 021 UNITS/KG/HR 10 mls/hr IV .Q24H [facility] Rx#: [id number] Other: # Voids 3 4 1 Weight 99.79 kg Results 11/01/20 16:58 11/01/20 16:58 Cardiac Enzymes 11/01/20 11/01/20 11/01/20 Range/Units 16:58 16:58 20:32 AST 43 (17-59) U/L Troponin I <0.012 0.033 (0.000-0.034) ng/mL 11/02/20 Range/Units 00:04 AST (17-59) U/L Troponin I 0.098 H* (0.000-0.034) ng/mL Coagulation 11/01/20 11/02/20 11/02/20 Range/Units 16:58 00:04 06:06 PT 10.5 (9.0-12.0) sec APTT 23.3 51.3 H 48.9 H (22.0-30.0) sec CBC 11/01/20 Range/Units 16:58 WBC 8.8 (3.8-10.6) k/uL RBC 4.96 (4.30-5.90) m/uL Hgb 15.5 (13.0-17.5) gm/dL Hct 47.3 (39.0-53.0) % Plt Count 187 (150-450) k/uL Comprehensive Metabolic Panel 11/01/20 Range/Units 16:58 Sodium 137 (137-145) mmol/L Potassium 4.6 (3.5-5.1) mmol/L Chloride 102 (98-107) mmol/L Carbon Dioxide 26 (22-30) mmol/L BUN 17 (9-20) mg/dL Creatinine 0.88 (0.66-1.25) mg/dL Glucose 106 H (74-99) mg/dL Calcium 9.6 (8.4-10.2) mg/dL AST 43 (17-59) U/L ALT 32 (4-49) U/L Alkaline Phosphatase 72 (38-126) U/L Total Protein 7.1 (6.3-8.2) g/dL Albumin 4.6 (3.5-5.0) g/dL Current Medications Generic Name Dose Route Start Last Admin Trade Name Freq PRN Reason Stop Dose Admin Alprazolam 0.25 mg 11/02/20 08:53 Alprazolam 0.25 Mg Tab PO Q6HR PRN Mild Anxiety Alprazolam 0.5 mg 11/02/20 08:53 Alprazolam 0.5 Mg Tab PO Q6HR PRN Moderate Anxiety Aspirin 325 mg 11/02/20 09:00 11/02/20 09:33 Aspirin 325 Mg Tab PO 325 mg DAILY KEVIN Administration Heparin Sodium/Sodium Chloride 250 mls @ 10 mls/hr 11/01/20 18:15 11/02/20 06:54 25,000 unit/ Sodium Chloride IV 10.02 units/kg/hr .Q24H KEVIN 10 mls/hr Titration Protocol 10.021 UNITS/KG/HR Sodium Chloride 1,000 ml/ IV 1,000 mls @ 99.79 mls/hr 11/02/20 08:53 Solution IV 11/02/20 18:54 .Q10H2M ONE 1 ML/KG/HR Heparin Sodium (Porcine) 10, 1,001 mls @ 999 mls/hr 11/03/20 07:00 000 unit/ Sodium Chloride IRRIGATION 11/03/20 23:00 ONCE PRN INTRA-OP Heparin Sodium (Porcine) 2,500 250.5 mls @ 250 mls/hr 11/03/20 07:00 unit/ Sodium Chloride IRRIGATION 11/03/20 23:00 ONCE PRN INTRA-OP Nitroglycerin 0.4 mg 11/01/20 18:12 Nitroglycerin Sl Tabs 0.4 Mg Tab SUBLINGUAL Q5M PRN Chest Pain Nitroglycerin 1 inch 11/02/20 00:00 11/02/20 05:54 Nitroglycerin Oint 1 Inch/Gm Packet TOPICAL 1 inch Q6HR KEVIN Administration Intake and Output 11/01/20 11/02/20 11/02/20 22:59 06:59 14:59 Intake Total 122.667 Balance 122.667 Intake: Intake, IV Titration 122.667 Amount Heparin Sod,Pork in 0.45% 122.667 NaCl 25,000 unit In 0.45 % NaCl 1 250ml.bag @ 10. 021 UNITS/KG/HR 10 mls/hr IV .Q24H [facility] Rx#: [id number] Other: # Voids 3 4 1 Weight 99.79 kg 11/01/20 16:58 11/01/20 16:58
[2020-11-02] MEDS ORDERED: lisinopriL 5 MG TAB PO SCH (12:00)
--- NOTE | 2020-11-02 12:00 | ECHOF ---
Referral Reason:Unstable angina MEASUREMENTS -------- HEIGHT: 172.7 cm WEIGHT: 99.8 kg BP: IVSd: 1.3 cm (0.6 - 1.1) LVIDd: 3.4 cm (3.9 - 5.3) LVPWd: 1.5 cm (0.6 - 1.1) EDV(Teich): 48 ml IVSs: 1.6 cm LVIDs: 3.0 cm LVPWs: 1.4 cm %IVS Thck: 29 % ESV(Teich): 35 ml EF(Teich): 27 % %FS: 12 % SV(Teich): 13 ml RVIDd: 3.8 cm (< 3.3) LALs A4C: 5.8 cm LAAs A4C: 20.8 cm LAESV A-L A4C: 63 ml LAESV MOD A4C: 61 ml LALs A2C: 6.1 cm LAAs A2C: 27.8 cm LAESV A-L A2C: 108 ml LAESV MOD A2C: 101 ml LAESV(A-L): 84 ml LAESV Index (A-L): 39.46 ml/m Ao Diam: 3.8 cm (2.0 - 3.7) AV Cusp: 2.8 cm (1.5 - 2.6) EPSS: 0.3 cm MV E Ángel: 1.35 m/s MV DecT: 216 ms MV Dec [place]: 6.3 m/s MV A Ángel: 0.49 m/s MV E/A Ratio: 2.76 MV PHT: 63 ms TR Vmax: 3.27 m/s TR maxP.82 mmHg RAP: 5.00 mmHg RVSP: 47.82 mmHg MV EF SLOPE: 77.42 mm/s (70 - 150) MV EXCURSION: 23.49 mm (> 18.000) FINDINGS -------- Undetermined rhythm. This was a techncally difficult study with suboptimal views, , Definity utilized for enhancement of i mages. The left ventricular size is normal. There is mild concentric left ventricular hypertrophy. Overa ll left ventricular systolic function is mildly impaired with, an EF between 45 - 50 %. Mid lateral LV wall motion is hypokinetic. The right ventricle is mild to moderately enlarged. LA is moderately dilated 34-39 ml/m2 The right atrial size is normal. There is mild aortic valve sclerosis. There is no evidence of aortic regurgitation. Mild mitral annular calcification present. Mild mitral regurgitation is present. Mild tricuspid regurgitation present. There is moderate pulmonary hypertension. The right ventric ular systolic pressure, as measured by Doppler, is 47.82mmHg. Trace/mild (physiologic) pulmonic regurgitation. The aortic root size is normal. Echo free space indicative of a pericardial fat pad. CONCLUSIONS -------- 1. This was a techncally difficult study with suboptimal views, , Definity utilized for enhancement o f images. 2. The left ventricular size is normal. 3. There is mild concentric left ventricular hypertrophy. 4. Overall left ventricular systolic function is mildly impaired with, an EF between 45 - 50 %. 5. Mid lateral LV wall motion is hypokinetic. 6. The right ventricle is mild to moderately enlarged. 7. LA is moderately dilated 34-39 ml/m2 8. The right atrial size is normal. 9. There is mild aortic valve sclerosis. 10. Mild mitral annular calcification present. 11. Mild mitral regurgitation is present. 12. Mild tricuspid regurgitation present. 13. There is moderate pulmonary hypertension. 14. The right ventricular systolic pressure, as measured by Doppler, is 47.82mmHg. 15. Trace/mild (physiologic) pulmonic regurgitation. 16. The aortic root size is normal. 17. Echo free space indicative of a pericardial fat pad. [employer]RE[employer]OW SALES LEADER: Deborah Morin RDCS
--- NOTE | 2020-11-02 12:27 | CC ---
CARDIAC CATHETERIZATION REPORT DATE OF SERVICE: 11/02/2020 PROCEDURE: Left heart catheterization and coronary angiography. PERFORMED BY: Dr. Jose Richardson. Moderate conscious sedation time was 22 minutes. Patient was administered Versed. Oxygen saturation, hemodynamics and EKG were monitored closely. CLINICAL INFORMATION: Mr. Ye Urbano is a gentleman with history of CAD prior stenting, details are unavailable and this was performed 15 years ago at [facility]. He has been seeing a business management intern who advised a stress test to be done next week. He is not on any significant medications other than aspirin and levothyroxine. He comes into the hospital with symptoms suggestive of severe unstable angina and went on to have a troponin elevation. He has symptoms even with activities of daily living and it has gotten progressively worse. He was advised coronary angiography after due discussion with the patient by Dr. Jasso and myself. PROCEDURE NOTE: Under local anesthesia and strict aseptic precautions, a 6-Paragu[place] introducer placed in the right radial artery. Using a JL3.5 and JR4 catheters I performed coronary angiography and the same right catheter was used to check LV pressure but LV gram was not performed. The sheath was taken out and a TR band applied as per protocol with saturation in the fingers of the right hand of 94%. CARDIAC CATHETERIZATION FINDINGS: The left ventricular end-diastolic pressure was about 12 mmHg without any gradient across aortic valve. CORONARY ANGIOGRAPHY FINDINGS: RIGHT CORONARY ARTERY: This is a very dominant vessel, has minor irregularities in the proximal and middle 1/3 and bifurcates into a large PLV and a moderate-sized PDA. The PLV as it comes off from the right coronary artery is a 95% stenosis. There is a long area of disease. It bifurcates into 2 branches and supplies a sizable amount of myocardium. The RCA therefore is a very dominant vessel and the PLV is a large vessel has a 95% stenosis as it comes off from the ostium, but this is a graftable vessel. The PDA has no significant disease. LEFT MAIN CORONARY ARTERY: This is a short patent vessel, minor irregularities and trifurcates into LAD, circumflex and ramus intermedius. Left main itself has no more than 10% to 15% narrowing. LEFT ANTERIOR DESCENDING CORONARY ARTERY: This is a fair caliber vessel that has a 99% proximal stenosis subtotal. It gives off a diagonal branch. The diagonal branch has an independent lesion of about 95%. The LAD that continues beyond also has disease. There is significant diffuse disease in the entire LAD system, but both the LAD and diagonal are of fair caliber and both of them are graftable. RAMUS INTERMEDIUS: This is a fair caliber vessel that runs along laterally has some tortuosity. There is a 70% narrowing with haziness supplies a fair amount of myocardium. LEFT POSTERIOR CIRCUMFLEX CORONARY ARTERY: Nondominant vessel, gives off a single obtuse marginal. Very proximally at the origin, there is a 70% narrowing of the circumflex as it comes off from the left main and then there is another area of narrowing in the obtuse marginal of about 80% to 90% and supplies a fair amount of myocardium. The groove branch is diffusely diseased and has several small branches that come off distally which are diffusely diseased. Circumflex therefore has an ostial lesion as well as a circumflex marginal lesion both of which are significant more than 90% in the circumflex marginal and graftable. LEFT VENTRICULOGRAM: Left ventriculogram was not performed. FINAL IMPRESSION: This patient has severe triple-vessel disease. There is a 95% disease involving a large PLV branch of a dominant RCA. There is a proximal LAD disease independent diagonal disease. Both LAD and diagonal are graftable. There is disease involving the ramus of about 70%. The [place] circumflex ostium lesion is quite significant and there is also circumflex marginal lesion. Filling pressures are normal. No gradient. Left ventriculogram not performed. RECOMMENDATIONS: I am recommending urgent aortocoronary bypass surgery with graft to the LAD, diagonal, ramus, circumflex marginal and PLV branch of RCA. The findings were discussed with him and his and I also left a message for cardiac surgery and spoke to Dr. Jasso. He will be on a heparin drip. Prognosis remains guarded. MMODL / IJN: [id number] /
[2020-11-02] MEDS ORDERED: MD COMMUNICATION TO PHARMACY 1 EACH MISC PO ONE (12:58)
--- NOTE | 2020-11-02 13:00 | P.PN ---
Subjective Progress Note Date: 11/02/20 Pt still having CP on exertion. Underwent LHC this morning which showed complex disease. He was referred to CT surgery. Objective - Vital Signs Vital signs: Vital Signs Temp 97.9 F 11/02/20 12:15 Pulse 76 11/02/20 12:48 Resp 16 11/02/20 12:30 BP 137/76 11/02/20 12:48 Pulse Ox 94 L 11/02/20 12:48 Intake & Output 11/01/20 11/02/20 11/02/20 18:59 06:59 18:59 Intake Total 122.667 200 Output Total 250 Balance 122.667 -50 Weight 99.79 kg 99.79 kg Intake: IV 200 Intake, IV Titration 122.667 Amount Heparin Sod,Pork in 0.45% 122.667 NaCl 25,000 unit In 0.45 % NaCl 1 250ml.bag @ 10. 021 UNITS/KG/HR 10 mls/hr IV .Q24H [facility] Rx#: [id number] Output: Urine 250 Other: # Voids 4 1 - Exam Gen: awake, alert HEENT: normocephalic, atraumatic, good hearing acuity, moist mucous membranes Resp: good air exchange, breathing comfortably with no accessory muscle use, clear to auscultation bilaterally CVS: good distal perfusion x 4, irregular rhythm, regular rate without murmurs GI: soft, NTTP, ND, appropriate bowel sounds : no SPT, no CVAT, calderon catheter not present MSK: no pitting edema, no clubbing Neuro: non-focal, moving all extremities Psych: cooperative, euthymic mood - Labs CBC & Chem 7: 11/01/20 16:58 11/01/20 16:58 Labs: Abnormal Lab Results - Last 24 Hours (Table) 11/01/20 11/02/20 11/02/20 Range/Units 16:58 00:04 00:04 APTT (22.0-30.0) sec Glucose 106 H (74-99) mg/dL POC Glucose (mg/dL) (75-99) mg/dL Troponin I 0.098 H* (0.000-0.034) ng/mL Cholesterol 216 H (0-200) mg/dL LDL Cholesterol, Calc 136.0 H (0.0-131.0) mg/dL HDL Cholesterol 61.0 H (40.0-60.0) mg/dL 11/02/20 11/02/20 11/02/20 Range/Units 00:04 06:06 09:38 APTT 51.3 H 48.9 H (22.0-30.0) sec Glucose (74-99) mg/dL POC Glucose (mg/dL) 100 H (75-99) mg/dL Troponin I (0.000-0.034) ng/mL Cholesterol (0-200) mg/dL LDL Cholesterol, Calc (0.0-131.0) mg/dL HDL Cholesterol (40.0-60.0) mg/dL Assessment and Plan Assessment: NSTEMI -Continue with heparin infusion -Trend troponin -Continue with aspirin -Cardiology consult -Cardiac monitoring -Nitroglycerin when necessary -Echocardiogram -patient warrants CT surgery evaluation for CABG Afib, newly diagnosed -May be due to on-going cardiac episode -C/w Heparin infusion -Cardiology consulted Hypothyroidism -Continue home levothyroxine dose DVT prophylaxis -Heparin The patient is admitted with an anticipated less than 2 midnight stay for evaluation of unstable angina CODE STATUS: Full Code Discussed with: Patient Anticipated discharge date: in am Anticipated discharge place: Home
[2020-11-02] MEDS: SODIUM CHLORIDE 0.9% 1,000 ML IV SCH (13:07)
--- NOTE | 2020-11-02 13:25 | P.GSCN ---
History of Present Illness Consult date: 11/02/20 Reason for Consult: Symptomatic multivessel coronary artery disease, non-STEMI this admission, surgical revascularization recommendations Requesting physician: Kenneth Richardson History of present illness: This is an 80-year-old gentleman who follows on an outpatient basis with Dr. Leon for primary care and Dr. Jenifer Yates for cardiology. He has a previous medical history of CAD with prior stenting 15 years ago, hypertension, hyperlipidemia, paroxysmal atrial fibrillation with refusal of anticoagulation, hypothyroidism, obstructive sleep apnea with home CPAP use, prostate cancer with radiation seed treatment and subsequent bladder and bowel incontinence, diverticulosis, left leg cellulitis in April 2021, bilateral hip replacements with repeat surgery due to osteomyelitis, previous tobacco dependence, daily wine consumption, and nightly cannabis use. He presented to [facility] emergency room yesterday with complaints of chest pain. Apparently he has been noticing increasing exertional dyspnea over the previous month. In the last week he is started to notice substernal chest pain with radiation to both shoulders along with occasional nausea, this has gotten progressively worse and occurs with any activity at all, relieved with rest. His symptoms were progressing to the point that he felt the need to present to the emergency room yesterday. EKG was completed demonstrating atrial fibrillation with incomplete right bundle branch block and possible inferior infarct. Troponin elevated to 0.09 and the patient was ruled in for non-STEMI. Other lab work demonstrated WBC 8.8, hemoglobin 15.5,, creatinine 0.88, BNP 1170, cholesterol 216, LDL 136, chronic virus not detected on PCR. Chest x-ray demonstrated borderline cardiomegaly without acute heart failure. He was admitted for evaluation and treatment with consultation placed to cardiology. Transthoracic echocardiogram was completed this morning demonstrating mildly impaired left ventricular function with EF of 45-50%, mid lateral LV wall motion hypokinesis, dilation of the left atrium and enlargement of the right ventricle, mild mitral regurgitation with mild mitral annular calcification, and mild tricuspid regurgitation. He was recommended to undergo heart catheterization which was completed today by Dr. Richardson and which demonstrated 99% proximal LAD stenosis, 95% stenosis in the PLB, 70% ramus stenosis, 90% ostial circumflex as well as obtuse marginal stenosis. Due to these findings consultation was placed to Dr. Eli for recommendations regarding surgical revascularization. Of note, the patient refuses statin medication and states he has tried 4 different statin medications in the past, all of which give him significant lower extremity myalgias and weakness. Review of Systems Review of systems was completed and was negative except as noted - Cardiovascular Reports as per HPI, Reports chest pain, Reports decreased exercise tolerance, Reports dyspnea on exertion, Reports irregular heart beat, Reports leg edema, Reports shortness of breath - Respiratory Reports as per HPI, Reports dyspnea, Reports sleep apnea Past Medical History Past Medical History: Atrial Fibrillation, Coronary Artery Disease (CAD), Cancer, Chest Pain / Angina, GERD/Reflux, Hyperlipidemia, Hypertension, Myocardial Infarction (SD), Osteoarthritis (OA), Prostate Disorder, Sleep Apnea/CPAP/BIPAP, Thyroid Disorder Additional Past Medical History / Comment(s): Hypothyroid, hyperactive bladder, A. fib (refuses anticoagulation). SEPTIC ARTHRITIS. diverticulosis History of Any Multi-Drug Resistant Organisms: None Reported Past Surgical History: Heart Catheterization, Tonsillectomy Additional Past Surgical History / Comment(s): radioactive seed implants for prostate cancer, cataracts removed-lens implants, bladder control device implanted 07-10-17 and removed 07-18-18, colonoscopy/polypectomy-benign. bilateral hip replaced. bone infection post op right hip. Past Anesthesia/Blood Transfusion Reactions: No Reported Reaction Additional Past Anesthesia/Blood Transfusion Reaction / Comm: has never had any blood transfusion Past Psychological History: No Psychological Hx Reported Smoking Status: Former smoker Past Alcohol Use History: Daily Additional Past Alcohol Use History / Comment(s): started smoking at age 18(1957) abd quit 1961. smoked 1/2 ppd, pt drinks 1-2 glasses of wine per day. take thc pills at night for sleep Past Drug Use History: None Reported Additional Drug Use History / Comment(s): Uses cannabis nightly - Past Family History Mother Family Medical History: Cancer Additional Family Medical History / Comment(s): from colon cancer at age 60 Father Family Medical History: Liver Disease Additional Family Medical History / Comment(s): from cirrhosis of the liver at age 59 they felt it was d/t farming chemicals 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 Medications and Allergies Home Medications Medication Instructions Recorded Confirmed Type Levothyroxine Sodium [Levoxyl] 75 mcg PO DAILY 07/22/18 11/01/20 History Aspirin 325 mg PO BID #60 tab 06/30/19 11/01/20 Rx Pantoprazole Sodium [Protonix] 40 mg PO DAILY 11/01/20 11/01/20 History Allergies Allergy/AdvReac Type Severity Reaction Status Date / Time Ejlqgef-Iwr-Yov Reductase AdvReac Severe Rash/Hives Verified 11/01/20 17:03 Inhibitor Surgical - Exam Vital Signs Temp Pulse Resp BP Pulse Ox 98 F 64 18 169/90 99 11/01/20 16:34 11/01/20 16:34 11/01/20 16:34 11/01/20 16:34 11/01/20 16:34 CONSTITUTIONAL: Awake and alert, appears comfortable, cooperative, well- developed, well-nourished, no pain, no acute distress EYES: Pupils equal, round, reactive to light, normal ocular movement ENT: Moist mucous membranes without oral lesions present NECK: No masses, no bruits, trachea midline RESPIRATORY: Lungs sounds clear to auscultation bilaterally. Respirations even, nonlabored. Currently on room air with oxygen saturation 94%. Strong cough. No chest wall deformities. No clubbing or cyanosis present CARDIOVASCULAR: S1, S2 present. Irregular rate and rhythm, controlled atrial fibrillation on telemetry. Palpable peripheral pulses bilaterally. Trace left lower extremity edema present. No calf pain or tenderness noted. Lower extremity varicosities noted. GASTROINTESTINAL: Abdomen soft, nontender, nondistended without masses or organomegaly noted. There is no rebound or guarding present. Active bowel sounds present 4 quadrants. GENITOURINARY: Deferred INTEGUMENTARY: Skin is warm and dry with evidence of good perfusion. NEUROLOGIC: Cranial nerves II through XII intact, normal coordination, no obvious motor or sensory deficits, speech is normal MUSKULOSKELETAL: Able to move all extremities, strength equal bilaterally, normal posture PSYCHIATRIC: Alert and oriented to person place and time, appropriate affect, intact judgment and insight Results - Labs 11/01/20 16:58 11/01/20 16:58 Abnormal Lab Results - Last 24 Hours (Table) 11/01/20 11/02/20 11/02/20 Range/Units 16:58 00:04 00:04 APTT (22.0-30.0) sec Glucose 106 H (74-99) mg/dL POC Glucose (mg/dL) (75-99) mg/dL Troponin I 0.098 H* (0.000-0.034) ng/mL Cholesterol 216 H (0-200) mg/dL LDL Cholesterol, Calc 136.0 H (0.0-131.0) mg/dL HDL Cholesterol 61.0 H (40.0-60.0) mg/dL 11/02/20 11/02/20 11/02/20 Range/Units 00:04 06:06 09:38 APTT 51.3 H 48.9 H (22.0-30.0) sec Glucose (74-99) mg/dL POC Glucose (mg/dL) 100 H (75-99) mg/dL Troponin I (0.000-0.034) ng/mL Cholesterol (0-200) mg/dL LDL Cholesterol, Calc (0.0-131.0) mg/dL HDL Cholesterol (40.0-60.0) mg/dL Diabetes panel 11/01/20 11/02/20 Range/Units 16:58 00:04 Sodium 137 (137-145) mmol/L Potassium 4.6 (3.5-5.1) mmol/L Chloride 102 (98-107) mmol/L Carbon Dioxide 26 (22-30) mmol/L BUN 17 (9-20) mg/dL Creatinine 0.88 (0.66-1.25) mg/dL Glucose 106 H (74-99) mg/dL Calcium 9.6 (8.4-10.2) mg/dL AST 43 (17-59) U/L ALT 32 (4-49) U/L Alkaline Phosphatase 72 (38-126) U/L Total Protein 7.1 (6.3-8.2) g/dL Albumin 4.6 (3.5-5.0) g/dL Triglycerides 95.0 (0.0-149.0) mg/dL HDL Cholesterol 61.0 H (40.0-60.0) mg/dL Calcium panel 11/01/20 Range/Units 16:58 Calcium 9.6 (8.4-10.2) mg/dL Albumin 4.6 (3.5-5.0) g/dL Pituitary panel 11/01/20 Range/Units 16:58 Sodium 137 (137-145) mmol/L Potassium 4.6 (3.5-5.1) mmol/L Chloride 102 (98-107) mmol/L Carbon Dioxide 26 (22-30) mmol/L BUN 17 (9-20) mg/dL Creatinine 0.88 (0.66-1.25) mg/dL Glucose 106 H (74-99) mg/dL Calcium 9.6 (8.4-10.2) mg/dL Adrenal panel 11/01/20 Range/Units 16:58 Sodium 137 (137-145) mmol/L Potassium 4.6 (3.5-5.1) mmol/L Chloride 102 (98-107) mmol/L Carbon Dioxide 26 (22-30) mmol/L BUN 17 (9-20) mg/dL Creatinine 0.88 (0.66-1.25) mg/dL Glucose 106 H (74-99) mg/dL Calcium 9.6 (8.4-10.2) mg/dL Total Bilirubin 0.8 (0.2-1.3) mg/dL AST 43 (17-59) U/L ALT 32 (4-49) U/L Alkaline Phosphatase 72 (38-126) U/L Total Protein 7.1 (6.3-8.2) g/dL Albumin 4.6 (3.5-5.0) g/dL - Imaging Chest x-ray: report reviewed, image reviewed EKG: image reviewed Additional studies: Head Of Marketing films reviewed Assessment and Plan Assessment: 1. Symptomatic multivessel coronary artery disease, non-STEMI this admission 2. History of CAD with prior stenting 15 years ago 3. Hypertension 4. Hyperlipidemia 5. Paroxysmal atrial fibrillation with refusal of anticoagulation 6. Hypothyroidism 7. Obstructive sleep apnea with home CPAP use 8. Prostate cancer with radiation seed treatment and subsequent bladder and bowel incontinence 9. Diverticulosis 10. Left leg cellulitis in April 2021 11. 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 Previous tobacco dependence 13. Daily wine consumption 14. Nightly cannabis use Plan: The patient was seen and examined at the bedside. Chart/diagnostics reviewed. The usual perioperative course of open heart surgery was discussed in detail with the patient and his , risks and benefits were reviewed, all questions were answered and the patient does consent to surgery. Preoperative testing was initiated. Recommend continuing aspirin, initiation of beta bc and statin, however the patient refuses statin due to previous reaction. Continue IV heparin. Will complete 5 m walk test. Once all testing has been completed will calculate STS risk score and discuss with the patient. Will discuss the case in detail with Dr. Habib. Further recommendations to follow. Thank you Dr. Richardson for this consult. We look forward to working with you in the care of your patient. Time with Patient: Greater than 30
[2020-11-02 13:58] LABS: Basophils # (A) 0.1 k/uL (0-0.2); Basophils % (A) 1 %; Eosinophils # (A) 0.1 k/uL (0-0.7); Eosinophils % (A) 1 %; HCT 49.8 % (39.0-53.0); HGB 16.4 gm/dL (13.0-17.5); Lymphocytes # (A) 1.5 k/uL (1.0-4.8); Lymphocytes % (A) 15 %; MCH 31.6 pg (25.0-35.0); MCV 95.6 fL (80.0-100.0); Mean Platelet Volume 7.9; Monocytes # (A) 0.6 k/uL (0-1.0); Monocytes % (A) 6 %; Neutrophils # (A) 7.8 k/uL (1.3-7.7); Neutrophils % (A) 78 %; Platelet Count 174 k/uL (150-450); RBC 5.21 m/uL (4.30-5.90); RDW 13.3 % (11.5-15.5); WBC 10.1 k/uL (3.8-10.6)
--- NOTE | 2020-11-02 14:01 | P.CNPUL ---
History of Present Illness Consult date: 11/02/20 Requesting physician: Moreno Eli Reason for consult: dyspnea, chest pain Chief complaint: chest pain History of present illness: 80-year-old white male patient of Dr. 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 Patient states that every time he is walking his chest pain gets worse, and there is associated increased shortness of breath as well. Denied radiation to his arm, or his neck, no diaphoresis, no palpitations, no recent fever or chills, no cough, no swelling in his bilateral lower extremity's, no nausea vomiting or diarrhea. Patient was also seen by his chief nurse anesthetist in the office, and EKG showed atrial fibrillation with no acute changes. X-ray was completed showing borderline cardiomegaly, no heart failure, no significant change compared to old exam. CBC was within normal limits, coagulation profile was within normal limits electrolytes and renal profile were unremarkable, COVID-19 PCR was negative, his first troponin was less than 0.012, second and the third were 0.033 and 0.098. Patient underwent heart catheterization today and was found to have severe triple-vessel disease with a 95% disease involving the LV branch of a dominant RCA, there was a proximal LAD disease, and there was a disease involving the ramus of about 70%, was also made circumflex ostium lesion that was quite significant. Filling pressures were normal. Echocardiogram was completed and mild concentric LVH, mildly impaired left ventricular systolic function with EF of 45-50%, mild MR, mild TR, and right-sided pressures of 47.8 mmHg. Was r eferred to cardiothoracic surgery for possibility of coronary artery bypass grafting, and we're consulted for pulmonary evaluation, and ICU management Review of Systems All systems: negative Constitutional: Denies chills, Denies fever Eyes: denies blurred vision, denies pain Ears, nose, mouth and throat: Denies headache, Denies sore throat Cardiovascular: Reports chest pain, Reports decreased exercise tolerance, Reports dyspnea on exertion, Denies shortness of breath Respiratory: Reports cough, Reports wheezing Gastrointestinal: Denies abdominal pain, Denies diarrhea, Denies nausea, Denies vomiting Musculoskeletal: Denies myalgias Integumentary: Denies pruritus, Denies rash Neurological: Denies numbness, Denies weakness Psychiatric: Denies anxiety, Denies depression Endocrine: Denies fatigue, Denies weight change Past Medical History Past Medical History: Atrial Fibrillation, Coronary Artery Disease (CAD), Cancer, Chest Pain / Angina, GERD/Reflux, Hyperlipidemia, Hypertension, Myocardial Infarction (OR), Osteoarthritis (OA), Prostate Disorder, Sleep Apnea/CPAP/BIPAP, Thyroid Disorder Additional Past Medical History / Comment(s): Hypothyroid, hyperactive bladder, A. fib (refuses anticoagulation). SEPTIC ARTHRITIS. diverticulosis History of Any Multi-Drug Resistant Organisms: None Reported Past Surgical History: Heart Catheterization, Tonsillectomy Additional Past Surgical History / Comment(s): radioactive seed implants for prostate cancer, cataracts removed-lens implants, bladder control device implanted 07-10-17 and removed 07-18-18, colonoscopy/polypectomy-benign. bilateral hip replaced. bone infection post op right hip. Past Anesthesia/Blood Transfusion Reactions: No Reported Reaction Additional Past Anesthesia/Blood Transfusion Reaction / Comment(s): has never ace d any blood transfusion Past Psychological History: No Psychological Hx Reported Smoking Status: Former smoker Past Alcohol Use History: Daily Additional Past Alcohol Use History / Comment(s): started smoking at age 18(1957) abd quit 1961. smoked 1/2 ppd, pt drinks 1-2 glasses of wine per day. take thc pills at night for sleep Past Drug Use History: None Reported Additional Drug Use History / Comment(s): Uses cannabis nightly - Past Family History Mother Family Medical History: Cancer Additional Family Medical History / Comment(s): from colon cancer at age 60 Father Family Medical History: Liver Disease Additional Family Medical History / Comment(s): from cirrhosis of the liver at age 59 they felt it was d/t farming chemicals 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 Medications and Allergies Home Medications Medication Instructions Recorded Confirmed Type Levothyroxine Sodium [Levoxyl] 75 mcg PO DAILY 07/22/18 11/01/20 History Aspirin 325 mg PO BID #60 tab 06/30/19 11/01/20 Rx Pantoprazole Sodium [Protonix] 40 mg PO DAILY 11/01/20 11/01/20 History Allergies Allergy/AdvReac Type Severity Reaction Status Date / Time Gzssmyt-Osd-Ngg Reductase AdvReac Severe Rash/Hives Verified 11/01/20 17:03 Inhibitor Physical Exam Vitals: Vital Signs Temp Pulse Pulse Pulse Resp BP BP 11/02/20 12:48 76 137/76 11/02/20 12:30 74 16 154/76 11/02/20 12:15 97.9 F 66 16 150/80 11/02/20 08:53 98.6 F 65 16 135/78 11/02/20 07:00 98.6 F 65 16 135/78 11/02/20 02:00 98.0 F 97 17 164/76 11/01/20 21:41 98.2 F 74 17 166/84 11/01/20 18:43 84 18 153/86 11/01/20 16:34 98 F 64 18 169/90 Pulse Ox 11/02/20 12:48 94 L 11/02/20 12:30 95 11/02/20 12:15 94 L 11/02/20 08:53 96 11/02/20 07:00 96 11/02/20 02:00 97 11/01/20 21:41 95 11/01/20 18:43 97 11/01/20 16:34 99 Intake and Output 11/01/20 11/02/20 11/02/20 22:59 06:59 14:59 Intake Total 122.667 200 Output Total 250 Balance 122.667 -50 Intake: IV 200 Intake, IV Titration 122.667 Amount Heparin Sod,Pork in 0.45% 122.667 NaCl 25,000 unit In 0.45 % NaCl 1 250ml.bag @ 10. 021 UNITS/KG/HR 10 mls/hr IV .Q24H [facility] Rx#: [id number] Output: Urine 250 Other: # Voids 3 4 1 Weight 99.79 kg GENERAL EXAM: Alert, active, comfortable in no apparent distress. HEAD: Normocephalic/atraumatic. EYES: Normal reaction of pupils, equal size. Conjunctiva pink, sclera white. NOSE: Clear with pink turbinates. THROAT: No erythema or exudates. NECK: No masses, no JVD, no thyroid enlargement, no adenopathy. CHEST: Congenital indentation of the sternal bone of the chest. Symmetrical expansion. LUNGS: Equal air entry with mild end expiratory wheezing CVS: Regular rate and rhythm, normal S1 and S2, no gallops, no murmurs, no rubs ABDOMEN: Soft, nontender. No hepatosplenomegaly, normal bowel sounds, no guarding or rigidity. EXTREMITIES: No clubbing, no edema, no cyanosis, 2+ pulses and upper and lower extremities. MUSCULOSKELETAL: Muscle strength and tone normal. SPINE: No scoliosis or deformity SKIN: No rashes CENTRAL NERVOUS SYSTEM: Alert and oriented -3. No focal deficits, tone is normal in all 4 extremities. PSYCHIATRIC: Alert and oriented -3. Appropriate affect. Intact judgment and insight. Results - Laboratory Findings CBC and BMP: 11/01/20 16:58 11/01/20 16:58 PT/INR, D-dimer PT 10.5 sec (9.0-12.0) 11/01/20 16:58 INR 1.0 (<1.2) 11/01/20 16:58 Abnormal lab findings: Abnormal Labs 11/01/20 11/02/20 11/02/20 16:58 00:04 00:04 APTT Glucose 106 H POC Glucose (mg/dL) Troponin I 0.098 H* Cholesterol 216 H LDL Cholesterol, Calc 136.0 H HDL Cholesterol 61.0 H 11/02/20 11/02/20 11/02/20 00:04 06:06 09:38 APTT 51.3 H 48.9 H Glucose POC Glucose (mg/dL) 100 H Troponin I Cholesterol LDL Cholesterol, Calc HDL Cholesterol - Diagnostic Findings Chest x-ray: report reviewed, image reviewed Additional studies: Echocardiogram reviewed Assessment and Plan Plan: #1. Symptomatic multivessel coronary artery disease, pending coronary artery bypass grafting possibly on 11/03/2020 #2. Chest pain and exertional dyspnea related to the above #3. Coronary artery disease with previous PCI #4. Hypertension #5. Chronic A. fib, and the patient refuses chronic anticoagulation, is currently just on aspirin #6. Remote and brief history of smoking #7. Congenital malformation of the sternal bone, and patient has a chronic indentation of the sternum #8. Obstructive sleep apnea #9. Hypothyroidism #10. Hyperactive bladder #11. History of prostate cancer with seed implants in 2003 #12. Osteoarthritis #13. Previous history of myocardial infarction #14. Daily use of cannabis Plan: Awaiting preop FEV1 Continue close monitoring Hemodynamically patient is stable Chest x-ray has been reviewed We will add breathing treatments Patient is undergoing preoperative testing for possibility of coronary artery bypass grafting possibly in the next 24-48 hours We'll continue to closely follow I performed a history & physical examination of the patient and discussed their management with my nurse practitioner, Nani Lynch. I reviewed the nurse practitioner's note and agree with the documented findings and plan of care. Lung sounds are positive for diffuse wheezes throughout the lung dejesus. The fi ndings and the impression was discussed with the patient. I attest to the documentation by the nurse practitioner. Time with Patient: Greater than 30
[2020-11-02 14:03] LABS: INR 1.1 (<1.2); Partial Thromboplastin Time 43.7 sec (22.0-30.0); Prothrombin Time 11.3 sec (9.0-12.0)
[2020-11-02 14:06] LABS: ALT 31 U/L (4-49); AST 42 U/L (17-59); African American GFR (CKD) >90 (>60 ml/min/1.73 sqM); Albumin 4.4 g/dL (3.5-5.0); Albumin/Globulin Ratio 1.8; Alkaline Phosphatase 83 U/L (38-126); Anion Gap 8 mmol/L; Blood Urea Nitrogen 12 mg/dL (9-20); Calcium 9.4 mg/dL (8.4-10.2); Carbon Dioxide 25 mmol/L (22-30); Chloride 104 mmol/L (98-107); Globulin 2.5 g/dL; Glucose 105 mg/dL (74-99); Magnesium 2.1 mg/dL (1.6-2.3); Non-African American GFR(CKD) 87 (>60 ml/min/1.73 sqM); Potassium 4.4 mmol/L (3.5-5.1); Sodium 137 mmol/L (137-145); Total Bilirubin 1.6 mg/dL (0.2-1.3); Total Protein 6.9 g/dL (6.3-8.2)
[2020-11-02] MEDS: METOPROLOL TARTRATE 12.5 MG TAB PO SCH ×2 (14:14→20:15)
[2020-11-02] MEDS: THIAMINE 100 MG TAB PO SCH (14:15)
[2020-11-02] MEDS: FOLIC ACID 1 MG TAB PO SCH (14:15)
--- NOTE | 2020-11-02 14:38 | US ---
EXAMINATION TYPE: US carotid duplex BILAT DATE OF EXAM: 11/02/2020 COMPARISON: NONE CLINICAL HISTORY: Pre-Op Cardiac Surgery. EXAM MEASUREMENTS: RIGHT: Peak Systolic Velocity (PSV) cm/sec ----- Right CCA: 80.9 ----- Right ICA: 86.9 ----- Right ECA: 127.0 ICA/CCA ratio: 1.1 RIGHT: End Diastole cm/sec ----- Right CCA: 13.8 ----- Right ICA: 25.8 ----- Right ECA: 12.3 LEFT: Peak Systolic Velocity (PSV) cm/sec ----- Left CCA: 59.5 ----- Left ICA: 139.1 ----- Left ECA: 110.8 ICA/CCA ratio: 2.3 LEFT: End Diastole cm/sec ----- Left CCA: 11.1 ----- Left ICA: 26.8 ----- Left ECA: 12.3 VERTEBRALS (direction of flow): Right Vertebral: Antegrade Left Vertebral: Antegrade Rhythm: Normal Grayscale, color Doppler, spectral Doppler imaging performed of the carotid arteries, waveform analys is does not show significant stenosis of the proximal internal carotid artery on the right by Doppler criteria. Mildly elevated left ICA as compared to CCA. Bilateral plaque at bulbs. IMPRESSION: Findings may be indicative of hemodynamic significant stenosis corresponding to approxim ately 50-69% diameter reduction of the proximal internal carotid artery on the left, CTA or MRA of th e neck could be performed for better evaluation Criteria for Assigning % of Stenosis / Diameter reduction (Estimation based on the indirect measurements of the internal carotid artery velocities (ICA PSV). 1. Normal (no stenosis)=ICA PSV < 125 cm/s: ratio < 2.0: ICA EDV<40 cm/s. 2. Less than 50% stenosis=ICA PSV < 125 cm/s: ratio < 2.0: ICA EDV<40 cm/s. 3. 50 to 69% stenosis=ICA PSV of 125 to 230 cm/s: ration 2.0 ? 4.0: ICA EDV 40-100 cm/s. 4. Greater than 70% stenosis to near occlusion= ICA PSV > 230 cm/s: ratio > 4.0: ICA EDV > 100 cm/s. 5. Near occlusion= ICA PSV velocities may be low or undetectable: variable ratio and ICA EDV. 6. Total occlusion=unable to detect flow.
[2020-11-02] MEDS: HEPARIN SOD,PORK IN 0.45% NACL 25,000 UNIT in 0.45% NACL 1 250ML.BAG IV SCH (16:33)
[2020-11-02 17:08] LABS: Appearance,Urine Clear (Clear); Bilirubin,Urine Negative (Negative); Blood,Urine Small (Negative); Color,Urine Yellow; Glucose,Urine (UA) Negative (Negative); Ketones,Urine 1+ (Negative); Leukocyte Esterase,Urine Negative (Negative); Mucus,Urine Rare /hpf; Nitrite,Urine Negative (Negative); Protein,Urine Trace (Negative); RBC,Urine 4 /hpf (0-5); Specific Gravity,Urine 1.041 (1.001-1.035); Squamous Epithelial Cell,Urine <1 /hpf (0-4); Urobilinogen,Urine <2.0 mg/dL (<2.0); WBC,Urine 1 /hpf (0-5)
--- NOTE | 2020-11-02 18:50 | CT ---
EXAMINATION TYPE: CT chest wo con DATE OF EXAM: 11/02/2020 COMPARISON: None HISTORY: pre-op CABG CT DLP: 522.5 mGycm Automated exposure control for dose reduction was used. Images obtained from the thoracic inlet to the diaphragm with no contrast. Heart is enlarged. There are bilateral pleural effusions. There is patchy interstitial infiltrates an d atelectasis in the lower lung dejesus. There is some mild peripheral pulmonary infiltrates in the lo wer lobes. There is no mediastinal adenopathy. Thoracic aorta is atheromatous. There is coronary martir ry calcification. 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 There is no pericardial effusion. There is some apparent contrast material in both kidneys. IMPRESSION: Cardiomegaly with pleural effusions and lower lobe pulmonary infiltrates that could relate to some ch ronic congestive heart failure. Pneumonia not excluded. Thoracic aortic aneurysm. No suspicious pulmonary mass.
[2020-11-02] MEDS ORDERED: MUPIROCIN 2% OINT 22 GM TUBE NASAL SCH (21:00)
[2020-11-02] MEDS ORDERED: METOPROLOL TARTRATE 12.5 MG TAB PO SCH (21:00)
[2020-11-02 23:24] LABS: Hemoglobin A1C 5.2 % (4.0-6.0)
[2020-11-03] MEDS: NITROGLYCERIN OINT 1 INCH/GM PACKET TOPICAL SCH (00:53)
[2020-11-03] MEDS: SODIUM CHLORIDE 0.9% 1,000 ML IV SCH (01:14)
[2020-11-03 02:41] LABS: Hepatitis A Antibody IgM Non-Reactive (Non-Reactive); Hepatitis B Core IgM Non-Reactive (Non-Reactive); Hepatitis B Surface Antigen Non-Reactive (Non-Reactive); Hepatitis C IgG Antibody Non-Reactive (Non-Reactive)
[2020-11-03] MEDS: LEVOTHYROXINE 75 MCG TAB PO SCH (04:53)
[2020-11-03] MEDS ORDERED: TRANEXAMIC ACID 2,000 MG in SODIUM CHLORIDE 0.9% 80 ML IV ONE (05:00)
[2020-11-03] MEDS ORDERED: ELECTROLYTE-A SOLUTION 1,000 ML with POTASSIUM CHLORIDE 40 MEQ, MAGNESIUM SULFATE 16 ME... IV SCH ×5 (05:00)
[2020-11-03] MEDS ORDERED: HEPARIN SODIUM 1,000 UN/ML (10ML VL) IV ONE (05:00)
[2020-11-03] MEDS ORDERED: PHENYLEPHRINE 10 MG/ML VIAL IV ONE (05:00)
[2020-11-03] MEDS ORDERED: ALBUMIN HUMAN 5% 500 ML in EMPTY BAG 1 BAG IVPB ONE ×6 (05:00)
[2020-11-03] MEDS ORDERED: SODIUM BICARB 8.4% 50 ML SYR (1 MEQ/ML) IV ONE (05:00)
[2020-11-03] MEDS ORDERED: MAGNESIUM SULFATE SYG 4.06 MEQ/ML SYRINGE IV ONE (05:00)
[2020-11-03] MEDS ORDERED: ELECTROLYTE-A SOLUTION 1,000 ML with POTASSIUM CHLORIDE 100 MEQ, MAGNESIUM SULFATE 16 M... IV SCH ×5 (05:00)
[2020-11-03] MEDS ORDERED: CALCIUM CHLORIDE 100 MG/ML 10 ML SYRINGE IVP ONE (05:00)
[2020-11-03] MEDS ORDERED: PROTAMINE SULFATE 250 MG in EMPTY BAG 1 BAG IV ONE (05:00)
[2020-11-03] MEDS ORDERED: MANNITOL 25% 12.5 GM/50 ML VIAL IV ONE ×2 (05:00)
[2020-11-03] MEDS ORDERED: ceFAZolin 1,000 MG in SODIUM CHLORIDE 0.9% IRRIGATIO 1,000 ML IRRIGATION ONE (05:00)
[2020-11-03] MEDS ORDERED: PHENYLEPHRINE 40 MG in SODIUM CHLORIDE 0.9% 250 ML IV ONE (05:00)
[2020-11-03] MEDS ORDERED: METOPROLOL TARTRATE 12.5 MG TAB PO ONE (05:00)
[2020-11-03] MEDS ORDERED: ASPIRIN 325 MG TAB PO ONE (05:00)
[2020-11-03] MEDS ORDERED: PROTAMINE SULFATE 10 MG/ML 25 ML VIAL IV ONE (05:00)
[2020-11-03] MEDS ORDERED: NOREPINEPHRINE 4 MG in SODIUM CHLORIDE 0.9% 250 ML IV SCH (05:00)
[2020-11-03] MEDS ORDERED: CLEVIDIPINE BUTYRATE 25 MG in EMPTY BAG 1 BAG IV SCH ×2 (05:00→14:46)
[2020-11-03] MEDS ORDERED: PAPAVERINE 360 MG in SODIUM CHLORIDE 0.9% 90 ML IV ONE (05:00)
[2020-11-03] MEDS ORDERED: LACTATED RINGERS 1,000 ML IV SCH (05:00)
[2020-11-03] MEDS ORDERED: NITROGLYCERIN-D5W PMX 25 MG/250 ML BTL IV ONE (05:00)
[2020-11-03] MEDS ORDERED: NITROGLYCERIN-D5W PMX 50 MG in DEXTROSE/WATER 1 250ML.BAG IV SCH ×2 (05:00→14:46)
[2020-11-03] MEDS ORDERED: CHLORHEXIDINE GLUCONATE 15 ML CUP MUCOUS MEM ONE (05:00)
[2020-11-03] MEDS ORDERED: ALBUMIN HUMAN 25% 50 ML in EMPTY BAG 1 BAG IVPB ONE (05:00)
[2020-11-03] MEDS ORDERED: INSULIN REGULAR 100 UNIT in SODIUM CHLORIDE 0.9% 100 ML IV SCH ×2 (05:00→14:46)
[2020-11-03] MEDS ORDERED: HEPARIN SODIUM,PORCINE 5,000 UNIT in SODIUM CHLORIDE 0.9% 500 ML 500 ML IV ONE (05:00)
[2020-11-03 05:53] LABS: Glucose,Whole Blood 94 mg/dL (75-99)
[2020-11-03 06:22] LABS: African American GFR (CKD) >90 (>60 ml/min/1.73 sqM); Anion Gap 6 mmol/L; Blood Urea Nitrogen 12 mg/dL (9-20); Calcium 8.6 mg/dL (8.4-10.2); Carbon Dioxide 26 mmol/L (22-30); Chloride 104 mmol/L (98-107); Glucose 101 mg/dL (74-99); Non-African American GFR(CKD) 85 (>60 ml/min/1.73 sqM); Potassium 3.9 mmol/L (3.5-5.1); Sodium 136 mmol/L (137-145)
[2020-11-03] MEDS ORDERED: HEPARIN SODIUM,PORCINE 2,500 UNIT in SODIUM CHLORIDE 0.9% 250 ML IRRIGATION PRN (07:00)
[2020-11-03] MEDS ORDERED: HEPARIN SODIUM,PORCINE 10,000 UNIT in SODIUM CHLORIDE 0.9% 1,000 ML IRRIGATION PRN (07:00)
[2020-11-03] MEDS ORDERED: IV FLUID CONTINUATION 200 ML IV ONE (07:19)
[2020-11-03] MEDS ORDERED: ATORVASTATIN 80 MG TAB PO SCH (09:00)
[2020-11-03] MEDS ORDERED: ASPIRIN 81 MG PO SCH (09:00)
[2020-11-03] MEDS ORDERED: SODIUM CHLORIDE 0.9% 250 ML BAG ONE (09:06)
[2020-11-03] MEDS ORDERED: SODIUM CHLORIDE 0.9% IRRIG 1,000 ML BTL IRRIGATION ONE (09:06)
[2020-11-03] MEDS ORDERED: fentaNYL (PF) 50 MCG/ML 50 ML VIAL ONE (09:06)
[2020-11-03] MEDS ORDERED: PROPOFOL 10 MG/ML 20 ML VIAL IV ONE (09:06)
[2020-11-03] MEDS ORDERED: ELECTROLYTE-R (PH 7.4) 1,000 ML IV.SOLN IV ONE (09:06)
[2020-11-03] MEDS ORDERED: HEPARIN SODIUM,PORCINE 10,000 UNIT/ML 1 ML VIAL ONE (09:06)
[2020-11-03] MEDS ORDERED: TRANEXAMIC ACID 1,000 MG/10 ML VIAL ONE (09:06)
[2020-11-03] MEDS ORDERED: MIDAZOLAM 2 MG/2 ML VIAL ONE (09:06)
[2020-11-03] MEDS ORDERED: NITROGLYCERIN-D5W PMX 50 MG/250 ML BOTTLE IV ONE (09:06)
[2020-11-03] MEDS ORDERED: VECURONIUM 10 MG VIAL IV ONE (09:06)
[2020-11-03 09:35] LABS: ABG Base Excess 0.2 mmol/L; ABG Glucose Whole Blood 94 mg/dL (75-99); ABG HCO3 25 mmol/L (21-25); ABG Hematocrit 42 % (34.0-46.0); ABG Ionized Calcium 4.6 mg/dL (4.5-5.3); ABG Lactic Acid Whole Blood 0.8 mmol/L (0.5-1.6); ABG PCO2 38 mmHg (35-45); ABG PH 7.42 (7.35-7.45); ABG PO2 384 mmHg (83-108); ABG Potassium Whole Blood 3.7 mmol/L (3.4-4.5); ABG Sodium Whole Blood 137 mmol/L (135-146); ABG TCO2 26 mmol/L (19-24)
--- NOTE | 2020-11-03 10:30 | CONS ---
CONSULTATION DATE OF SERVICE: 11/02/20 I have seen, examined, and agree with the midlevel's findings. MMODL / IJN: [id number] / -86
[2020-11-03 11:13] LABS: ABG Base Excess -1.9 mmol/L; ABG Glucose Whole Blood 107 mg/dL (75-99); ABG HCO3 24 mmol/L (21-25); ABG Hematocrit 42 % (34.0-46.0); ABG Ionized Calcium 4.6 mg/dL (4.5-5.3); ABG Lactic Acid Whole Blood 0.7 mmol/L (0.5-1.6); ABG Oxygen Saturation 99.5 % (94-97); ABG PCO2 45 mmHg (35-45); ABG PH 7.34 (7.35-7.45); ABG PO2 171 mmHg (83-108); ABG Potassium Whole Blood 3.9 mmol/L (3.4-4.5); ABG Sodium Whole Blood 138 mmol/L (135-146); ABG TCO2 26 mmol/L (19-24)
[2020-11-03 12:14] LABS: ABG Base Excess -1.7 mmol/L; ABG Glucose Whole Blood 99 mg/dL (75-99); ABG HCO3 24 mmol/L (21-25); ABG Hematocrit 33 % (34.0-46.0); ABG Ionized Calcium 4.1 mg/dL (4.5-5.3); ABG Lactic Acid Whole Blood 0.5 mmol/L (0.5-1.6); ABG PCO2 42 mmHg (35-45); ABG PH 7.36 (7.35-7.45); ABG PO2 378 mmHg (83-108); ABG Potassium Whole Blood 4.2 mmol/L (3.4-4.5); ABG Sodium Whole Blood 136 mmol/L (135-146); ABG TCO2 25 mmol/L (19-24)
[2020-11-03 12:47] LABS: ABG Base Excess -0.4 mmol/L; ABG Glucose Whole Blood 119 mg/dL (75-99); ABG HCO3 24 mmol/L (21-25); ABG Hematocrit 32 % (34.0-46.0); ABG Ionized Calcium 4.1 mg/dL (4.5-5.3); ABG Lactic Acid Whole Blood 0.8 mmol/L (0.5-1.6); ABG PCO2 39 mmHg (35-45); ABG PO2 322 mmHg (83-108); ABG Potassium Whole Blood 4.8 mmol/L (3.4-4.5); ABG Sodium Whole Blood 136 mmol/L (135-146); ABG TCO2 26 mmol/L (19-24)
[2020-11-03 13:19] LABS: ABG Base Excess -0.4 mmol/L; ABG Glucose Whole Blood 119 mg/dL (75-99); ABG HCO3 24 mmol/L (21-25); ABG Hematocrit 34 % (34.0-46.0); ABG Ionized Calcium 4.1 mg/dL (4.5-5.3); ABG Lactic Acid Whole Blood 0.8 mmol/L (0.5-1.6); ABG PCO2 38 mmHg (35-45); ABG PH 7.41 (7.35-7.45); ABG PO2 407 mmHg (83-108); ABG Sodium Whole Blood 136 mmol/L (135-146); ABG TCO2 25 mmol/L (19-24)
[2020-11-03] MEDS ORDERED: CALCIUM GLUCONATE 2 GM in SODIUM CHLORIDE 0.9% 100 ML IVPB PRN (14:46)
[2020-11-03] MEDS ORDERED: IPRATROPIUM-ALBUTEROL 3 ML NEB INHALATION PRN (14:46)
[2020-11-03] MEDS ORDERED: Phosphorus Replacement Protoco 1 EACH MISC MISCELLANE PRN (14:46)
[2020-11-03] MEDS ORDERED: hydrALAZINE HCL 20 MG/ML 1 ML VIAL IVP PRN (14:46)
[2020-11-03] MEDS ORDERED: Magnesium Replacement Protocol 1 EACH MISC MISCELLANE PRN (14:46)
[2020-11-03] MEDS ORDERED: DEXTROSE 5% IN WATER 100 ML with AMIODARONE 150 MG IV PRN (14:46)
[2020-11-03] MEDS ORDERED: METOCLOPRAMIDE 5 MG/ML 2 ML VIAL IVP PRN (14:46)
[2020-11-03] MEDS ORDERED: AMIODARONE 450 MG in DEXTROSE 5% IN WATER 250 ML IV PRN ×2 (14:46)
[2020-11-03] MEDS ORDERED: DEXMEDETOMIDINE/0.9% NACL(PMX) 400 MCG in EMPTY BAG 1 BAG IV SCH (14:46)
[2020-11-03] MEDS ORDERED: Potassium Replacement Protocol 1 EACH MISC MISCELLANE PRN (14:46)
[2020-11-03] MEDS ORDERED: AMIODARONE 360 MG in DEXTROSE 5% IN WATER 200 ML IV PRN ×2 (14:46)
[2020-11-03] MEDS ORDERED: ONDANSETRON 4 MG/2 ML VIAL IVP PRN (14:46)
[2020-11-03] MEDS: ATORVASTATIN 40 MG TAB PO SCH (14:53)
[2020-11-03] MEDS: FOLIC ACID 1 MG TAB PO SCH (14:53)
[2020-11-03] MEDS: THIAMINE 100 MG TAB PO SCH (14:53)
--- NOTE | 2020-11-03 15:09 | P.ANPRN ---
Procedure Note - Anesthesia - Invasive Line Right Central Line Time Out Performed: Yes (835) Date of Procedure: 11/03/20 Time of Procedure: 08:37 Location of Patient: PreOp Preparation: Sterile Prep Arterial Line Location: Radial Ultrasound Used: Yes Purpose - Visualization and Identification of Vasculature: Yes Needle Guage: 18g angio Image Stored and Saved: Yes Narrative: Central line placement per sterile protocol utilized. +local +angio +cvp +jwire +uneventful introduction and dilation right IJ cordis Right Sargents Edna Time Out Performed: Yes (835) Date of Procedure: 11/03/20 Time of Procedure: 08:59 Location of Patient: PreOp Preparation: Sterile Prep, Sterile Dressing Arterial Line Location: Radial Ultrasound Used: No Purpose - Visualization and Identification of Vasculature: No Image Stored and Saved: No Narrative: Central line placement per sterile protocol utilized. Sargents floated in sheath to 50cm no wedge in one attempt
[2020-11-03 15:21] LABS: ABG Base Excess -0.9 mmol/L; ABG Glucose Whole Blood 118 mg/dL (75-99); ABG HCO3 24 mmol/L (21-25); ABG Hematocrit 37 % (34.0-46.0); ABG Ionized Calcium 4.5 mg/dL (4.5-5.3); ABG Lactic Acid Whole Blood 0.7 mmol/L (0.5-1.6); ABG Oxygen Saturation 95.8 % (94-97); ABG PCO2 42 mmHg (35-45); ABG PH 7.37 (7.35-7.45); ABG PO2 78 mmHg (83-108); ABG Potassium Whole Blood 4.1 mmol/L (3.4-4.5); ABG Sodium Whole Blood 139 mmol/L (135-146); ABG TCO2 26 mmol/L (19-24)
[2020-11-03] MEDS: MILRINONE-D5W PMX 20 MG in DEXTROSE/WATER 1 100ML.BAG IV SCH ×2 (15:27→23:00)
[2020-11-03] MEDS: LACTATED RINGERS 1,000 ML IV SCH (15:30)
[2020-11-03 15:43] LABS: Glucose,Whole Blood 111 mg/dL (75-99)
[2020-11-03 15:58] LABS: Basophils % (A) 0 %; Eosinophils % (A) 0 %; HCT 38.7 % (39.0-53.0); Lymphocytes # (A) 0.9 k/uL (1.0-4.8); Lymphocytes % (A) 7 %; MCHC 33.7 g/dL (31.0-37.0); MCV 95.1 fL (80.0-100.0); Mean Platelet Volume 7.9; Monocytes # (A) 0.9 k/uL (0-1.0); Monocytes % (A) 6 %; Neutrophils # (A) 11.8 k/uL (1.3-7.7); Neutrophils % (A) 86 %; Platelet Count 103 k/uL (150-450); RBC 4.07 m/uL (4.30-5.90); RDW 13.5 % (11.5-15.5); WBC 13.7 k/uL (3.8-10.6)
--- NOTE | 2020-11-03 15:59 | XR ---
EXAMINATION TYPE: XR chest 1V portable DATE OF EXAM: 11/03/2020 COMPARISON: 11/01/2020 HISTORY: Postoperative cardiac surgery TECHNIQUE: Single frontal view of the chest is obtained. FINDINGS: Status post median sternotomy. There is a [place] catheter. There is no enteric catheter . There is a endotracheal tube with its tip appropriately above the parrish. There is a left-sided libra st tube. Other chest tubes project over the midline. Heart size is mildly enlarged. Mild patchy perih ilar and bibasilar airspace opacities may represent edema, atelectasis or developing infection. Perico nued follow-up is recommended. Probable tiny pleural effusions. No pneumothorax. IMPRESSION: 1. Status post median sternotomy. Endotracheal tube, [place] catheter, enteric catheter are seen. M ultiple chest tubes. 2. Patchy airspace opacities in the perihilar and bibasilar regions suggestive of atelectasis edema o r developing infection. Continued radiographic follow-up is recommended. Probable tiny pleural effusi ons. No pneumothorax.
[2020-11-03 16:03] LABS: Ionized Calcium 4.8 mg/dL (4.5-5.3)
[2020-11-03 16:12] LABS: ABG Base Excess -0.2 mmol/L; ABG HCO3 26 mmol/L (21-25); ABG Oxygen Saturation 99.7 % (94-97); ABG PCO2 48 mmHg (35-45); ABG PH 7.33 (7.35-7.45); ABG PO2 342 mmHg (83-108); ABG TCO2 27 mmol/L (19-24); Allen Test Performed? Yes
--- NOTE | 2020-11-03 16:12 | P.PN ---
Subjective Progress Note Date: 11/03/20 Principal diagnosis: Exertional shortness of breath and chest pain 80-year-old white male patient of Dr. 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 Patient states that every time he is walking his chest pain gets worse, and there is associated increased shortness of breath as well. Denied radiation to his arm, or his neck, no diaphoresis, no palpitations, no recent fever or chills, no cough, no swelling in his bilateral lower extremity's, no nausea vomiting or diarrhea. 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 X-ray was completed showing borderline cardiomegaly, no heart failure, no significant change compared to old exam. CBC was within normal limits, coagulation profile was within normal limits electrolytes and renal profile were unremarkable, COVID-19 PCR was negative, his first troponin was less than 0.012, second and the third were 0.033 and 0.098. Patient underwent heart catheterization today and was found to have severe triple-vessel disease with a 95% disease involving the LV branch of a dominant RCA, there was a proximal LAD disease, and there was a disease involving the ramus of about 70%, was also made circumflex ostium lesion that was quite significant. Filling pressures were normal. Echocardiogram was completed and mild concentric LVH, mildly impaired left ventricular systolic function with EF of 45-50%, mild MR, mild TR, and right-sided pressures of 47.8 mmHg. Was referred to cardiothoracic surgery for possibility of coronary artery bypass grafting, and we're consulted for pulmonary evaluation, and ICU management On 11/03/2020 patient is seen in the postoperative period in the intensive care unit following three-vessel coronary artery bypass grafting with the AZAR to the LAD, SVG to the OM, and SVG to the PLV, right leg endoscopic vein harvest, and exclusion of the left atrial appendage. Patient is sedated and intubated on assist control mode of ventilation, with a rate of 12, tidal volume is 400, FiO2 of 60% and PEEP of 5. He is on lactated Ringer's at a rate of 50 ML per hour, he is on Diprivan at 20 mics per kilo per minute, Primacor is at 0.375, nitroglycerin drip is at 5 mics per kilo per minute, Levophed is at 7 mics per minute. PA pressure is 30/18, cardiac output was 4.8 and cardiac index was 2.3 patient is currently being paced at DDD mode with a rate of 70, intrinsic rhythm is sinus rhythm with 1st degree AV block, required pacemaker support earlier for slow atrial fibrillation with a rate of 40 BPM. he has a 2 mediastinal left pleural chest tubes with small amount of serous output in the chest tubes, no evidence of air leak, postoperative blood gas and chest x-ray are pending at this time. Objective - Vital Signs Vital signs: Vital Signs Temp 99.2 F 11/03/20 07:14 Pulse 68 11/03/20 07:14 Resp 18 11/03/20 07:14 BP 154/80 11/03/20 07:14 Pulse Ox 97 11/03/20 07:14 Intake & Output 11/02/20 11/03/20 11/03/20 18:59 06:59 18:59 Intake Total 818.498 103 Output Total 350 1700 Balance 468.498 -1597 Intake: IV 200 103 Intake, IV Titration 618.498 Amount Heparin Sod,Pork in 0.45% 118.498 NaCl 25,000 unit In 0.45 % NaCl 1 250ml.bag @ 10. 021 UNITS/KG/HR 10 mls/hr IV .Q24H KEVIN Rx#: [id number] Sodium Chloride 0.9% 500 500 ml 500 ml @ 999 mls/hr IV .Q31M STA Rx#:[id number] Output: Urine 350 500 Estimated Blood Loss 1200 Other: Voiding Method Toilet # Voids 1 1 - Exam GENERAL EXAM: Sedated, intubated comfortable in no apparent distress. HEAD: Normocephalic/atraumatic. EYES: Normal reaction of pupils, equal size. Conjunctiva pink, sclera white. NOSE: Clear with pink turbinates. THROAT: No erythema or exudates. NECK: No masses, no JVD, no thyroid enlargement, no adenopathy. CHEST: Congenital indentation of the sternal bone of the chest. Symmetrical expansion. Midsternal incision is clean dry and intact, chest tube sites are clean dry and intact, 2 mediastinal and left pleural chest tube to to pleuravacs and wall suction, with small amount of sanguinous output in the collection chambers, no evidence of air leak. Epicardial wires in place connected to an external pacemaker patient is being currently paced mode of DDD with a rate of 70 BPM, intrinsic rhythm is slow atrial fibrillation with a rate of 40 BPM LUNGS: Equal air entry with mild end expiratory wheezing CVS: Regular rate and rhythm, normal S1 and S2, no gallops, no murmurs, no rubs ABDOMEN: Soft, nontender. No hepatosplenomegaly, normal bowel sounds, no guarding or rigidity. EXTREMITIES: No clubbing, no edema, no cyanosis, 2+ pulses and upper and lower extremities. MUSCULOSKELETAL: Muscle strength and tone normal. Bilateral lower extremities are Booker wrapped SPINE: No scoliosis or deformity SKIN: No rashes CENTRAL NERVOUS SYSTEM: Sedated, intubated No focal deficits, tone is normal in all 4 extremities. - Labs CBC & Chem 7: 11/02/20 13:35 11/03/20 05:42 Labs: Abnormal Lab Results - Last 24 Hours (Table) 11/02/20 11/02/20 11/02/20 Range/Units 13:35 16:41 18:13 APTT 44.2 H (22.0-30.0) sec ABG pH (7.35-7.45) ABG pO2 (83-108) mmHg ABG Total CO2 (19-24) mmol/L ABG O2 Saturation (94-97) % ABG Hematocrit (34.0-46.0) % ABG Potassium (3.4-4.5) mmol/L ABG Ionized Calcium (4.5-5.3) mg/dL ABG Glucose (75-99) mg/dL Hemoglobin (13.0-17.5) gm/dL Sodium (137-145) mmol/L Glucose (74-99) mg/dL Arterial Blood Potassium (3.4-4.5) mmol/L Arterial Blood Glucose (75-99) mg/dL Ur Specific [place] 1.041 H (1.001-1.035) Urine Protein Trace H (Negative) Urine Ketones 1+ H (Negative) Urine Blood Small H (Negative) Urine Mucus Rare H (None) /hpf Crossmatch See Detail 11/03/20 11/03/20 11/03/20 Range/Units 05:42 05:42 09:37 APTT 39.7 H (22.0-30.0) sec ABG pH (7.35-7.45) ABG pO2 384 H (83-108) mmHg ABG Total CO2 26 H (19-24) mmol/L ABG O2 Saturation 100.0 H (94-97) % ABG Hematocrit (34.0-46.0) % ABG Potassium (3.4-4.5) mmol/L ABG Ionized Calcium (4.5-5.3) mg/dL ABG Glucose (75-99) mg/dL Hemoglobin (13.0-17.5) gm/dL Sodium 136 L (137-145) mmol/L Glucose 101 H (74-99) mg/dL Arterial Blood Potassium (3.4-4.5) mmol/L Arterial Blood Glucose (75-99) mg/dL Ur Specific [place] (1.001-1.035) Urine Protein (Negative) Urine Ketones (Negative) Urine Blood (Negative) Urine Mucus (None) /hpf Crossmatch 11/03/20 11/03/20 11/03/20 Range/Units 11:15 12:16 12:49 APTT (22.0-30.0) sec ABG pH 7.34 L (7.35-7.45) ABG pO2 171 H 378 H 407 H (83-108) mmHg ABG Total CO2 26 H 25 H 25 H (19-24) mmol/L ABG O2 Saturation 99.5 H 100.0 H 100.0 H (94-97) % ABG Hematocrit 33 L (34.0-46.0) % ABG Potassium 5.0 H (3.4-4.5) mmol/L ABG Ionized Calcium 4.1 L 4.1 L (4.5-5.3) mg/dL ABG Glucose 107 H 119 H (75-99) mg/dL Hemoglobin 10.7 L 10.9 L (13.0-17.5) gm/dL Sodium (137-145) mmol/L Glucose (74-99) mg/dL Arterial Blood Potassium 5.0 H (3.4-4.5) mmol/L Arterial Blood Glucose 107 H 119 H (75-99) mg/dL Ur Specific [place] (1.001-1.035) Urine Protein (Negative) Urine Ketones (Negative) Urine Blood (Negative) Urine Mucus (None) /hpf Crossmatch 11/03/20 Range/Units 13:21 APTT (22.0-30.0) sec ABG pH (7.35-7.45) ABG pO2 322 H (83-108) mmHg ABG Total CO2 26 H (19-24) mmol/L ABG O2 Saturation 100.0 H (94-97) % ABG Hematocrit 32 L (34.0-46.0) % ABG Potassium 4.8 H (3.4-4.5) mmol/L ABG Ionized Calcium 4.1 L (4.5-5.3) mg/dL ABG Glucose 119 H (75-99) mg/dL Hemoglobin 10.6 L (13.0-17.5) gm/dL Sodium (137-145) mmol/L Glucose (74-99) mg/dL Arterial Blood Potassium 4.8 H (3.4-4.5) mmol/L Arterial Blood Glucose 119 H (75-99) mg/dL Ur Specific [place] (1.001-1.035) Urine Protein (Negative) Urine Ketones (Negative) Urine Blood (Negative) Urine Mucus (None) /hpf Crossmatch Microbiology - Last 24 Hours (Table) 11/02/20 16:41 Nasal Screen MRSA/MSSA - Preliminary Nasal Swab Assessment and Plan Plan: #1. Symptomatic multivessel coronary artery disease, status post three-vessel coronary artery bypass grafting with AZAR to the LAD, and SVG to the OM and PLV, left atrial appendage exclusion, postoperative day #0 #2. Routine postoperative ventilator management #3. Coronary artery disease with previous PCI #4. Hypertension #5. Chronic A. fib, and the patient refuses chronic anticoagulation, is currently just on aspirin #6. Remote and brief history of smoking #7. Congenital malformation of the sternal bone, and patient has a chronic indentation of the sternum #8. Obstructive sleep apnea #9. Hypothyroidism #10. Hyperactive bladder #11. History of prostate cancer with seed implants in 2002 #12. Osteoarthritis #13. Previous history of myocardial infarction #14. Daily use of cannabis Plan: Postoperative blood gas pending, chest x-ray has been reviewed Post-op labs pending We'll proceed with waking the patient up and spontaneous breathing trials If passes spontaneous breathing trials we'll proceed with extubation Continue with DuoNeb every 4 hours on the ventilator and 4 times daily after extubation Incentive spirometer to the bedside GI And DVT prophylaxis per CT surgery Continue close monitoring in the intensive care unit We'll continue to closely follow with the CT surgery Follow-up lab work later on today and in the morning and follow-up chest x-ray on a daily basis I performed a history & physical examination of the patient and discussed their management with my nurse practitioner, Nani Lynch. I reviewed the nurse practitioner's note and agree with the documented findings and plan of care. Lung sounds are positive for diminished breath sounds. The findings and the impression was discussed with the patient. I attest to the documentation by the nurse practitioner. Time with Patient: Greater than 30
[2020-11-03 16:16] LABS: ALT 19 U/L (4-49); AST 50 U/L (17-59); African American GFR (CKD) >90 (>60 ml/min/1.73 sqM); Albumin 2.6 g/dL (3.5-5.0); Alkaline Phosphatase 44 U/L (38-126); Anion Gap 3 mmol/L; Blood Urea Nitrogen 12 mg/dL (9-20); Calcium 7.9 mg/dL (8.4-10.2); Carbon Dioxide 26 mmol/L (22-30); Chloride 106 mmol/L (98-107); Glucose 120 mg/dL (74-99); Magnesium 2.4 mg/dL (1.6-2.3); Non-African American GFR(CKD) >90 (>60 ml/min/1.73 sqM); Sodium 135 mmol/L (137-145); Total Bilirubin 1.7 mg/dL (0.2-1.3); Total Protein 4.6 g/dL (6.3-8.2)
[2020-11-03] MEDS: IPRATROPIUM-ALBUTEROL 3 ML NEB INHALATION SCH ×2 (16:17→19:40)
[2020-11-03 16:19] LABS: INR 1.2 (<1.2); Partial Thromboplastin Time 33.7 sec (22.0-30.0); Prothrombin Time 12.6 sec (9.0-12.0)
[2020-11-03 16:31] LABS: Glucose,Whole Blood 105 mg/dL (75-99)
[2020-11-03] MEDS: HEPARIN SODIUM,PORCINE/PF 5,000 UNIT/0.5 ML SYRINGE SQ SCH ×2 (16:45→23:43)
[2020-11-03] MEDS: NOREPINEPHRINE 4 MG in SODIUM CHLORIDE 0.9% 250 ML IV SCH ×2 (16:52→18:27)
[2020-11-03 17:12] LABS: Glucose,Whole Blood 108 mg/dL (75-99)
[2020-11-03 18:05] LABS: Glucose,Whole Blood 140 mg/dL (75-99)
[2020-11-03] MEDS: ACETAMINOPHEN IV (For NPO) 1,000 MG in EMPTY BAG 1 BAG IVPB SCH ×2 (18:08→23:41)
--- NOTE | 2020-11-03 18:17 | P.PN ---
Subjective Progress Note Date: 11/03/20 Pt intubated and sedated, doing well s/p CABG (3v - AZAR to LAD, SVG to OM1, SVG to PDA). Has 2 mediastinal chest tubes, 1 left pleural chest tube, swan, a- line. On milrinone, nitro gtt. No longer requiring levophed. AC 450, FiO2 100%, PEEP 10, RR 20. Objective - Vital Signs Vital signs: Vital Signs Temp 97.5 F L 11/03/20 17:00 Pulse 87 11/03/20 17:00 Resp 20 11/03/20 17:00 BP 154/80 11/03/20 07:14 Pulse Ox 95 11/03/20 17:00 Intake & Output 11/02/20 11/03/20 11/03/20 18:59 06:59 18:59 Intake Total 818.498 286.175 Output Total 350 2055 Balance 468.498 -1768.825 Intake: IV 200 251 .9NS Cardiac Output 30 .9NS Pressure bag 18 Lactated Ringers 1,000 ml 100 @ 50 mls/hr IV .Q20H KEVIN Rx#:[id number] Intake, IV Titration 618.498 35.175 Amount Clevidipine Butyrate 25 6.934 mg In Empty Bag 1 bag @ 1 MG/HR 2 mls/hr IV .Q24H KEVIN Rx#:[id number] Heparin Sod,Pork in 0.45% 118.498 NaCl 25,000 unit In 0.45 % NaCl 1 250ml.bag @ 10. 021 UNITS/KG/HR 10 mls/hr IV .Q24H KEVIN Rx#: [id number] Sodium Chloride 0.9% 500 500 ml 500 ml @ 999 mls/hr IV .Q31M STA Rx#:[id number] propofoL 1,000 mg In 28.241 Empty Bag 1 bag @ Titrate IV .Q0M KEVIN Rx#: [id number] Output: Chest Tube Drainage 165 Left Chest Tube 95 Mediastinal Pawel Tube X 2 70 Urine 350 690 Estimated Blood Loss 1200 Other: Voiding Method Toilet Toilet # Voids 1 1 ABP, PAP, CO, CI - Last Documented Arterial Blood Pressure 142/68 Pulmonary Artery Pressure 38/27 Cardiac Output 5 Cardiac Index 2.3 - Exam Gen: Intubated, sedated HEENT: normocephalic, atraumatic, good hearing acuity, moist mucous membranes Resp: Vent-before meals 450, FiO2 100%, respiratory rate 20, PEEP 10 CVS: good distal perfusion x 4, regular rhythm, tachycardic GI: soft, NTTP, ND : no SPT, no CVAT, [place] catheter is present MSK: Trace to 1+ pitting edema, no clubbing Neuro: non-focal, moving all extremities - Labs CBC & Chem 7: 11/03/20 15:54 11/03/20 15:54 Labs: Abnormal Lab Results - Last 24 Hours (Table) 11/02/20 11/02/20 11/03/20 Range/Units 13:35 18:13 05:42 WBC (3.8-10.6) k/uL RBC (4.30-5.90) m/uL Hct (39.0-53.0) % Plt Count (150-450) k/uL Neutrophils # (1.3-7.7) k/uL Lymphocytes # (1.0-4.8) k/uL PT (9.0-12.0) sec INR (<1.2) APTT 44.2 H 39.7 H (22.0-30.0) sec ABG pH (7.35-7.45) ABG pCO2 (35-45) mmHg ABG pO2 (83-108) mmHg ABG HCO3 (21-25) mmol/L ABG Total CO2 (19-24) mmol/L ABG O2 Saturation (94-97) % ABG Hematocrit (34.0-46.0) % ABG Potassium (3.4-4.5) mmol/L ABG Ionized Calcium (4.5-5.3) mg/dL ABG Glucose (75-99) mg/dL Hemoglobin (13.0-17.5) gm/dL Sodium (137-145) mmol/L Creatinine (0.66-1.25) mg/dL Glucose (74-99) mg/dL POC Glucose (mg/dL) (75-99) mg/dL Calcium (8.4-10.2) mg/dL Magnesium (1.6-2.3) mg/dL Total Bilirubin (0.2-1.3) mg/dL Total Protein (6.3-8.2) g/dL Albumin (3.5-5.0) g/dL Arterial Blood Potassium (3.4-4.5) mmol/L Arterial Blood Glucose (75-99) mg/dL Crossmatch See Detail 11/03/20 11/03/20 11/03/20 Range/Units 05:42 09:37 11:15 WBC (3.8-10.6) k/uL RBC (4.30-5.90) m/uL Hct (39.0-53.0) % Plt Count (150-450) k/uL Neutrophils # (1.3-7.7) k/uL Lymphocytes # (1.0-4.8) k/uL PT (9.0-12.0) sec INR (<1.2) APTT (22.0-30.0) sec ABG pH 7.34 L (7.35-7.45) ABG pCO2 (35-45) mmHg ABG pO2 384 H 171 H (83-108) mmHg ABG HCO3 (21-25) mmol/L ABG Total CO2 26 H 26 H (19-24) mmol/L ABG O2 Saturation 100.0 H 99.5 H (94-97) % ABG Hematocrit (34.0-46.0) % ABG Potassium (3.4-4.5) mmol/L ABG Ionized Calcium (4.5-5.3) mg/dL ABG Glucose 107 H (75-99) mg/dL Hemoglobin (13.0-17.5) gm/dL Sodium 136 L (137-145) mmol/L Creatinine (0.66-1.25) mg/dL Glucose 101 H (74-99) mg/dL POC Glucose (mg/dL) (75-99) mg/dL Calcium (8.4-10.2) mg/dL Magnesium (1.6-2.3) mg/dL Total Bilirubin (0.2-1.3) mg/dL Total Protein (6.3-8.2) g/dL Albumin (3.5-5.0) g/dL Arterial Blood Potassium (3.4-4.5) mmol/L Arterial Blood Glucose 107 H (75-99) mg/dL Crossmatch 11/03/20 11/03/20 11/03/20 Range/Units 12:16 12:49 13:21 WBC (3.8-10.6) k/uL RBC (4.30-5.90) m/uL Hct (39.0-53.0) % Plt Count (150-450) k/uL Neutrophils # (1.3-7.7) k/uL Lymphocytes # (1.0-4.8) k/uL PT (9.0-12.0) sec INR (<1.2) APTT (22.0-30.0) sec ABG pH (7.35-7.45) ABG pCO2 (35-45) mmHg ABG pO2 378 H 407 H 322 H (83-108) mmHg ABG HCO3 (21-25) mmol/L ABG Total CO2 25 H 25 H 26 H (19-24) mmol/L ABG O2 Saturation 100.0 H 100.0 H 100.0 H (94-97) % ABG Hematocrit 33 L 32 L (34.0-46.0) % ABG Potassium 5.0 H 4.8 H (3.4-4.5) mmol/L ABG Ionized Calcium 4.1 L 4.1 L 4.1 L (4.5-5.3) mg/dL ABG Glucose 119 H 119 H (75-99) mg/dL Hemoglobin 10.7 L 10.9 L 10.6 L (13.0-17.5) gm/dL Sodium (137-145) mmol/L Creatinine (0.66-1.25) mg/dL Glucose (74-99) mg/dL POC Glucose (mg/dL) (75-99) mg/dL Calcium (8.4-10.2) mg/dL Magnesium (1.6-2.3) mg/dL Total Bilirubin (0.2-1.3) mg/dL Total Protein (6.3-8.2) g/dL Albumin (3.5-5.0) g/dL Arterial Blood Potassium 5.0 H 4.8 H (3.4-4.5) mmol/L Arterial Blood Glucose 119 H 119 H (75-99) mg/dL Crossmatch 11/03/20 11/03/20 11/03/20 Range/Units 15:02 15:41 15:54 WBC 13.7 H (3.8-10.6) k/uL RBC 4.07 L (4.30-5.90) m/uL Hct 38.7 L (39.0-53.0) % Plt Count 103 L (150-450) k/uL Neutrophils # 11.8 H (1.3-7.7) k/uL Lymphocytes # 0.9 L (1.0-4.8) k/uL PT (9.0-12.0) sec INR (<1.2) APTT (22.0-30.0) sec ABG pH (7.35-7.45) ABG pCO2 (35-45) mmHg ABG pO2 78 L (83-108) mmHg ABG HCO3 (21-25) mmol/L ABG Total CO2 26 H (19-24) mmol/L ABG O2 Saturation (94-97) % ABG Hematocrit (34.0-46.0) % ABG Potassium (3.4-4.5) mmol/L ABG Ionized Calcium (4.5-5.3) mg/dL ABG Glucose 118 H (75-99) mg/dL Hemoglobin 12.2 L (13.0-17.5) gm/dL Sodium (137-145) mmol/L Creatinine (0.66-1.25) mg/dL Glucose (74-99) mg/dL POC Glucose (mg/dL) 111 H (75-99) mg/dL Calcium (8.4-10.2) mg/dL Magnesium (1.6-2.3) mg/dL Total Bilirubin (0.2-1.3) mg/dL Total Protein (6.3-8.2) g/dL Albumin (3.5-5.0) g/dL Arterial Blood Potassium (3.4-4.5) mmol/L Arterial Blood Glucose 118 H (75-99) mg/dL Crossmatch 11/03/20 11/03/20 11/03/20 Range/Units 15:54 15:54 16:10 WBC (3.8-10.6) k/uL RBC (4.30-5.90) m/uL Hct (39.0-53.0) % Plt Count (150-450) k/uL Neutrophils # (1.3-7.7) k/uL Lymphocytes # (1.0-4.8) k/uL PT 12.6 H (9.0-12.0) sec INR 1.2 H (<1.2) APTT 33.7 H (22.0-30.0) sec ABG pH 7.33 L (7.35-7.45) ABG pCO2 48 H (35-45) mmHg ABG pO2 342 H (83-108) mmHg ABG HCO3 26 H (21-25) mmol/L ABG Total CO2 27 H (19-24) mmol/L ABG O2 Saturation 99.7 H (94-97) % ABG Hematocrit (34.0-46.0) % ABG Potassium (3.4-4.5) mmol/L ABG Ionized Calcium (4.5-5.3) mg/dL ABG Glucose (75-99) mg/dL Hemoglobin (13.0-17.5) gm/dL Sodium 135 L (137-145) mmol/L Creatinine 0.59 L (0.66-1.25) mg/dL Glucose 120 H (74-99) mg/dL POC Glucose (mg/dL) (75-99) mg/dL Calcium 7.9 L (8.4-10.2) mg/dL Magnesium 2.4 H (1.6-2.3) mg/dL Total Bilirubin 1.7 H (0.2-1.3) mg/dL Total Protein 4.6 L (6.3-8.2) g/dL Albumin 2.6 L (3.5-5.0) g/dL Arterial Blood Potassium (3.4-4.5) mmol/L Arterial Blood Glucose (75-99) mg/dL Crossmatch 11/03/20 11/03/20 11/03/20 Range/Units 16:29 17:09 18:03 WBC (3.8-10.6) k/uL RBC (4.30-5.90) m/uL Hct (39.0-53.0) % Plt Count (150-450) k/uL Neutrophils # (1.3-7.7) k/uL Lymphocytes # (1.0-4.8) k/uL PT (9.0-12.0) sec INR (<1.2) APTT (22.0-30.0) sec ABG pH (7.35-7.45) ABG pCO2 (35-45) mmHg ABG pO2 (83-108) mmHg ABG HCO3 (21-25) mmol/L ABG Total CO2 (19-24) mmol/L ABG O2 Saturation (94-97) % ABG Hematocrit (34.0-46.0) % ABG Potassium (3.4-4.5) mmol/L ABG Ionized Calcium (4.5-5.3) mg/dL ABG Glucose (75-99) mg/dL Hemoglobin (13.0-17.5) gm/dL Sodium (137-145) mmol/L Creatinine (0.66-1.25) mg/dL Glucose (74-99) mg/dL POC Glucose (mg/dL) 105 H 108 H 140 H (75-99) mg/dL Calcium (8.4-10.2) mg/dL Magnesium (1.6-2.3) mg/dL Total Bilirubin (0.2-1.3) mg/dL Total Protein (6.3-8.2) g/dL Albumin (3.5-5.0) g/dL Arterial Blood Potassium (3.4-4.5) mmol/L Arterial Blood Glucose (75-99) mg/dL Crossmatch Microbiology - Last 24 Hours (Table) 11/02/20 16:41 Nasal Screen MRSA/MSSA - Preliminary Nasal Swab Assessment and Plan Assessment: NSTEMI Status post CABG -Continue with aspirin, Plavix, statin -Cardiology consult -CT surgery following -Cardiac monitoring -Nitroglycerin drip -Milrinone drip -Echocardiogram, EF 45-50% -Lines: 2 x mediastinal chest tubes, 1 x left pleural chest tube, [place], A- line, calderon Afib, newly diagnosed, paroxysmal -Heparin discontinued perioperatively -CT surgery to determine when it's appropriate to restart Hypothyroidism -Continue home levothyroxine dose DVT prophylaxis -Heparin The patient is admitted with an anticipated less than 2 midnight stay for evaluation of NSTEMI CODE STATUS: Full Code Discussed with: Patient Anticipated discharge date: TBD Anticipated discharge place: Home
[2020-11-03] MEDS: KETOROLAC 15 MG/ML 1 ML VIAL IVP SCH ×2 (18:22→23:42)
[2020-11-03 18:36] LABS: Basophils % (A) 0 %; Eosinophils % (A) 0 %; HCT 44.5 % (39.0-53.0); Lymphocytes # (A) 1.4 k/uL (1.0-4.8); Lymphocytes % (A) 9 %; MCH 30.3 pg (25.0-35.0); MCHC 31.5 g/dL (31.0-37.0); Mean Platelet Volume 8.4; Monocytes % (A) 7 %; Neutrophils # (A) 11.9 k/uL (1.3-7.7); Neutrophils % (A) 83 %; Platelet Count 130 k/uL (150-450); RBC 4.64 m/uL (4.30-5.90); RDW 13.9 % (11.5-15.5); WBC 14.5 k/uL (3.8-10.6)
[2020-11-03] MEDS: ALBUMIN HUMAN 5% 250 ML in EMPTY BAG 1 BAG IVPB PRN ×2 (18:56→20:32)
[2020-11-03 19:03] LABS: Glucose,Whole Blood 133 mg/dL (75-99)
[2020-11-03 20:02] LABS: Glucose,Whole Blood 133 mg/dL (75-99)
[2020-11-03 20:57] LABS: Glucose,Whole Blood 131 mg/dL (75-99)
[2020-11-03 21:03] LABS: Basophils % (A) 0 %; Eosinophils # (A) 0.1 k/uL (0-0.7); Eosinophils % (A) 1 %; HCT 36.6 % (39.0-53.0); HGB 12.5 gm/dL (13.0-17.5); Lymphocytes # (A) 0.7 k/uL (1.0-4.8); Lymphocytes % (A) 5 %; MCH 32.4 pg (25.0-35.0); MCHC 34.2 g/dL (31.0-37.0); MCV 94.6 fL (80.0-100.0); Mean Platelet Volume 9.6; Monocytes # (A) 0.9 k/uL (0-1.0); Monocytes % (A) 7 %; Neutrophils # (A) 11.3 k/uL (1.3-7.7); Neutrophils % (A) 87 %; Platelet Count 110 k/uL (150-450); RBC 3.87 m/uL (4.30-5.90); RDW 13.4 % (11.5-15.5); WBC 12.9 k/uL (3.8-10.6)
[2020-11-03 22:02] LABS: Glucose,Whole Blood 138 mg/dL (75-99)
[2020-11-03] MEDS: MUPIROCIN 2% OINT 22 GM TUBE NASAL SCH (22:23)
[2020-11-03 22:59] LABS: Glucose,Whole Blood 133 mg/dL (75-99)
[2020-11-03 23:43] LABS: ABG Base Excess -0.3 mmol/L; ABG HCO3 24 mmol/L (21-25); ABG Oxygen Saturation 98.7 % (94-97); ABG PCO2 37 mmHg (35-45); ABG PH 7.43 (7.35-7.45); ABG PO2 131 mmHg (83-108); ABG TCO2 25 mmol/L (19-24); Allen Test Performed? Yes
[2020-11-04 00:11] LABS: Glucose,Whole Blood 134 mg/dL (75-99)
[2020-11-04] MEDS: ALBUMIN HUMAN 5% 250 ML in EMPTY BAG 1 BAG IVPB PRN ×4 (00:45→10:44)
[2020-11-04 01:04] LABS: Glucose,Whole Blood 139 mg/dL (75-99)
[2020-11-04 01:58] LABS: Glucose,Whole Blood 137 mg/dL (75-99)
[2020-11-04] MEDS: NOREPINEPHRINE 4 MG in SODIUM CHLORIDE 0.9% 250 ML IV SCH ×2 (02:00→09:14)
[2020-11-04] MEDS ORDERED: HYDROcodone/APAP 5-325MG 1 EACH TAB PO PRN ×2 (02:41)
[2020-11-04 03:08] LABS: Glucose,Whole Blood 133 mg/dL (75-99)
[2020-11-04 03:57] LABS: Glucose,Whole Blood 125 mg/dL (75-99)
[2020-11-04 04:07] LABS: Basophils % (A) 0 %; Eosinophils % (A) 0 %; HCT 32.4 % (39.0-53.0); HGB 11.1 gm/dL (13.0-17.5); Lymphocytes # (A) 1.1 k/uL (1.0-4.8); Lymphocytes % (A) 9 %; MCH 32.3 pg (25.0-35.0); MCHC 34.1 g/dL (31.0-37.0); MCV 94.5 fL (80.0-100.0); Mean Platelet Volume 9.1; Monocytes # (A) 0.9 k/uL (0-1.0); Monocytes % (A) 8 %; Neutrophils # (A) 9.7 k/uL (1.3-7.7); Neutrophils % (A) 82 %; Platelet Count 106 k/uL (150-450); RBC 3.43 m/uL (4.30-5.90); RDW 13.5 % (11.5-15.5); WBC 11.8 k/uL (3.8-10.6)
[2020-11-04 04:12] LABS: Ionized Calcium 4.7 mg/dL (4.5-5.3)
[2020-11-04 04:20] LABS: ALT 15 U/L (4-49); AST 47 U/L (17-59); African American GFR (CKD) >90 (>60 ml/min/1.73 sqM); Albumin 2.9 g/dL (3.5-5.0); Alkaline Phosphatase 40 U/L (38-126); Anion Gap 6 mmol/L; Blood Urea Nitrogen 16 mg/dL (9-20); Calcium 7.9 mg/dL (8.4-10.2); Carbon Dioxide 24 mmol/L (22-30); Chloride 105 mmol/L (98-107); Glucose 128 mg/dL (74-99); Magnesium 2.2 mg/dL (1.6-2.3); Non-African American GFR(CKD) 82 (>60 ml/min/1.73 sqM); Potassium 4.1 mmol/L (3.5-5.1); Sodium 135 mmol/L (137-145); Total Bilirubin 2.2 mg/dL (0.2-1.3); Total Protein 4.7 g/dL (6.3-8.2)
[2020-11-04 05:00] LABS: Glucose,Whole Blood 126 mg/dL (75-99)
--- NOTE | 2020-11-04 05:54 | OP ---
OPERATIVE REPORT DATE OF SURGERY: 11/03/2020 PREOPERATIVE DIAGNOSIS: Coronary artery disease. POSTOPERATIVE DIAGNOSE: Coronary artery disease. PROCEDURE: 1. Coronary bypass grafting x 3 vessels (left internal mammary artery to left anterior descending artery, saphenous vein graft to obtuse marginal artery, saphenous vein graft to posterior lateral branch of right coronary artery). 2. Endoscopic harvest right greater saphenous vein. 3. Ligation of left atrial appendage using 35 mm AtriClip. 4. Epiaortic ultrasound. 5. Transesophageal echocardiogram. SURGEON: Moreno Eli MD. ASSISTANTS: 1. Josué Goodman NP. 2. HERMAN Ty. ANESTHESIA: General. SPECIMEN: None. COMPLICATION: None. INDICATION: The patient is an 80-year-old male with a past medical history significant for chronic atrial fibrillation, not on oral anticoagulant coagulation, prostate cancer, hypertension, hyperlipidemia, osteoarthritis, and a remote history of tobacco use, who presented to the emergency department complaining of chest pain and worsening exertional dyspnea. Workup revealed multivessel coronary artery disease including a subtotal proximal LAD lesion. The patient's disease was not amenable to percutaneous intervention and therefore coronary artery bypass was recommended. The risks, benefits, and alternatives of this procedure were discussed with the patient. All of his questions were answered. Consent was obtained. FINDINGS: The patient had pectus carinatum, which made dissection of the mammary artery somewhat challenging. The mammary artery itself was a good conduit. The saphenous vein was a good conduit. The LAD was diffusely diseased and an extremely small vessel with poor runoff. The posterior lateral branch measured 1.3 mm. The obtuse marginal artery measured 1.3 mm. PROCEDURE IN DETAIL: The patient was taken to the operating room and placed supine on the operating table. After the induction of general anesthesia, he was prepped and draped in the usual sterile fashion. Preoperative transesophageal echocardiogram confirmed an ejection fraction of about 45-50% with no significant valvular pathology. A median sternotomy was performed. Of note, the patient did have a pectus carinatum type chest. The left internal mammary artery was harvested in the standard fashion taking care to clip all branches. This dissection was very challenging given the patient's anatomy. Intravenous heparin was administered. The vessel was transected distally revealing brisk flow. Simultaneously, greater saphenous vein was harvested from the right lower extremity using endoscopic technique. All branches were tied. Both the mammary artery and saphenous vein were good conduits. A pericardial cradle was created. The ascending aorta was dilated and measured approximately 4.3 cm. Upon palpation, it did contain islands of calcific plaque, which were confirmed using epiaortic ultrasound. An arterial cannula was placed in the distal ascending aorta in an area free of plaque. A venous cannula was placed through the right atrial appendage and directed into the IVC. Both antegrade and retrograde catheters were placed as well. The patient was then placed on cardiopulmonary bypass with good decompression of the heart. The aortic cross-clamp was applied. Cold blood potassium cardioplegia was given in both antegrade and retrograde fashion to achieve arrest of the heart. Of note, cardioplegia was delivered every 15 to 20 minutes while the patient was under crossclamp. I began by identifying the left atrial appendage. A 35 mm AtriClip was placed across its base to ensure ligation. Next, attention was turned to the inferior wall. The distal right coronary artery was heavily calcified. The posterior lateral branch was identified and dissected free. A small arteriotomy was created. This vessel accepted a 1.0 mm probe. Using saphenous vein in a reverse fashion, an end-to-side anastomosis was created. This was performed using a running 7-0 Prolene suture. The graft was hemostatic and had great flow. Next, attention was turned to the lateral wall. The ramus artery and obtuse marginal arteries were small in diameter. The OM appeared to be larger and therefore a small arteriotomy was created in this vessel. It accepted a 1.0 mm probe. Using saphenous vein in a reverse fashion, an end-to-side anastomosis created. This was performed using a running 7 Prolene suture. The graft was hemostatic and had good flow. Next, attention was turned to the anterior wall. There was a small vessel which had diffuse calcific disease which appeared to supply the apex of the heart. I dissected this vessel and found a relatively soft spot in its mid to distal portion. A small arteriotomy was created. This vessel was thin-walled and accepted a 1.0 mm probe, though the outflow appeared to be poor. Using the left internal mammary, an end-to-side anastomosis was created. This was performed using a running 8-0 Prolene suture. The anastomosis was hemostatic. The mammary pedicle was then tacked down to the anterior surface of the heart. Attention was then turned to the proximal anastomoses. These were both performed in end-to-side fashion using running 6-0 Prolene sutures. One liter of warm blood was delivered in retrograde fashion. Both lidocaine and magnesium were administered as well. The aortic cross-clamp was removed. The vein grafts were de-aired in the standard fashion. Temporary atrial and ventricular pacing wires were placed and brought through the skin. The patient was then weaned off cardiopulmonary bypass. He with the addition of low-dose Levophed and Milrinone. Followup transesophageal echocardiogram confirmed no change in ejection fraction. Protamine was administered. There were no adverse reactions. The remaining cannulas were removed. The mediastinum was copiously irrigated with warm saline solution. Again, all surgical sites were inspected and appeared to be hemostatic. Soft tissues were reapproximated over the ascending aorta as well as over the apex of the heart. Straight 32-Frisian chest tubes were placed in both the left pleural space and mediastinum. These were secured to the skin using sutures. The sternum was then reapproximated using the Worthington cable system. The cables were placed in a [id number] fashion. At the completion of the closure, the sternum was well aligned. The remainder of the wound was closed in layers. A sterile dressing was applied. The patient appeared to tolerate the procedure well. There were no immediate complications. He returned to the ICU in critical but stable condition. He did not receive any intraoperative blood products. NEAL / JEFFRYN: [id number] / MTDD
[2020-11-04 06:06] LABS: Glucose,Whole Blood 124 mg/dL (75-99)
[2020-11-04] MEDS: KETOROLAC 15 MG/ML 1 ML VIAL IVP SCH ×4 (06:27→23:49)
[2020-11-04] MEDS: LEVOTHYROXINE 75 MCG TAB PO SCH (06:37)
[2020-11-04 07:02] LABS: Glucose,Whole Blood 125 mg/dL (75-99)
[2020-11-04] MEDS: IPRATROPIUM-ALBUTEROL 3 ML NEB INHALATION SCH ×4 (07:27→19:29)
[2020-11-04] MEDS ORDERED: MILRINONE-D5W PMX 20 MG in DEXTROSE/WATER 1 100ML.BAG IV SCH (07:30)
--- NOTE | 2020-11-04 07:46 | XR ---
EXAMINATION TYPE: XR chest 1V portable DATE OF EXAM: 11/04/2020 COMPARISON: 11/03/2020 HISTORY: Postoperative cardiac surgery TECHNIQUE: Single frontal view of the chest is obtained. FINDINGS: Status post median sternotomy. There is a [place] catheter. The endotracheal tube and en teric catheter has been removed. There is a left-sided chest tube. Other chest tubes project over the midline. Heart size is mildly enlarged. Mild stable patchy perihilar and bibasilar airspace opacitie s may represent edema, atelectasis or developing infection. Probable tiny pleural effusions. No pneum othorax. IMPRESSION: 1. Status post median sternotomy. Endotracheal tube and enteric catheter has been removed. Multiple c hest tubes. 2. Patchy airspace opacities in the perihilar and bibasilar regions suggestive of atelectasis edema o r developing infection. Probable tiny pleural effusions. No pneumothorax.
[2020-11-04 07:53] LABS: Glucose,Whole Blood 121 mg/dL (75-99)
--- NOTE | 2020-11-04 08:26 | P.PN ---
Subjective Progress Note Date: 11/04/20 Principal diagnosis: Severe CAD and status post CABG This is an 80-year-old gentleman with hypertension and dyslipidemia who presented to the emergency department with a chest discomfort. He is known to have CAD with prior stenting as well. He was diagnosed with unstable angina and underwent a heart catheterization by Dr. Richardson and that revealed severe triple- vessel CAD. For that reason he was referred to undergo CABG. Yesterday he underwent CABG 3 was AZAR to LAD and SVG to OM and also SVG to RCA. This is postoperative elevation day #1. He still requires small dose of norepinephrine as well as Primacor. He is maintaining sinus rhythm with first- degree AV block. Urine output is marginal. The chest x-ray was reviewed. He was sitting in the chair seems very comfortable and not in pain or any distress. The blood work was reviewed. He is on dual antiplatelet therapy along with Lipitor at 40 mg by mouth daily which I would advise to increase to 80 mg by pia th daily down the line if there is no abnormalities in the liver function tests. He is not on beta bc because of the first-degree AV block which is quite significant. Please note that the echocardiogram was reviewed and showed an ejection fraction between 45-50%. Objective - Vital Signs Vital signs: Vital Signs Temp 97.5 F L 11/03/20 17:00 Pulse 90 11/04/20 07:38 Resp 13 11/04/20 07:00 BP 104/54 11/04/20 07:00 Pulse Ox 96 11/04/20 07:00 Intake & Output 11/03/20 11/04/20 11/04/20 18:59 06:59 18:59 Intake Total 009.356 3549.585 101.75 Output Total 2200 888 80 Balance -6106.752 2104.585 21.75 Weight 102.8 kg Intake: IV 320 2038.25 101.75 .9NS Cardiac Output 40 340 30 .9NS Pressure bag 27 108 9 ACETAMINOPHEN IV (For NPO 100 ) 1,000 mg In Empty Bag 1 bag @ 400 mls/hr IVPB Q6HR KEVIN Rx#:[id number] Albumin Human 5% 250 ml 750 In Empty Bag 1 bag @ 250 mls/hr IVPB Q1HR PRN Rx#: [id number] Lactated Ringers 1,000 ml 150 550 50 @ 50 mls/hr IV .Q20H KEVIN Rx#:[id number] Nitroglycerine 16.5 1.5 Primacor 123.75 11.25 ceFAZolin 2 gm In Sodium 50 Chloride 0.9% 50 ml @ 100 mls/hr IVPB Q8H KEVIN Rx#: [id number] Intake, IV Titration 185.175 421.335 Amount ACETAMINOPHEN IV (For NPO 100 ) 1,000 mg In Empty Bag 1 bag @ 400 mls/hr IVPB Q6HR KEVIN Rx#:[id number] Clevidipine Butyrate 25 6.934 43.066 mg In Empty Bag 1 bag @ 1 MG/HR 2 mls/hr IV .Q24H KEVIN Rx#:[id number] Insulin Regular 100 unit 1.187 In Sodium Chloride 0.9% 100 ml @ Per Protocol IV .Q0M KEVIN Rx#:[id number] Milrinone-D5w Pmx 20 mg 84.756 In Dextrose/Water 1 100ml .bag @ 0.375 MCG/KG/MIN 11.226 mls/hr IV .Q8H55M KEVIN Rx#:[id number] Norepinephrine 4 mg In 218.362 Sodium Chloride 0.9% 250 ml @ 0.05 MCG/KG/MIN 19. 01 mls/hr IV .[id number] KEVIN Rx#:[id number] ceFAZolin 2 gm In Sodium 50 Chloride 0.9% 50 ml @ 100 mls/hr IVPB Q8H KEVIN Rx#: [id number] propofoL 1,000 mg In 28.241 73.964 Empty Bag 1 bag @ Titrate IV .Q0M KEVIN Rx#: [id number] Output: Chest Tube Drainage 220 505 60 Left Chest Tube 100 245 10 Mediastinal Pawel Tube X 2 120 260 50 Urine 780 383 20 Estimated Blood Loss 1200 Other: Voiding Method Toilet Indwelling Catheter ABP, PAP, CO, CI - Last Documented Arterial Blood Pressure 108/55 Pulmonary Artery Pressure 24/11 Cardiac Output 5.2 Cardiac Index 2.4 - Constitutional General appearance: Present: no acute distress - Respiratory Respiratory: bilateral: diminished - Labs CBC & Chem 7: 11/04/20 03:55 11/04/20 03:55 Labs: Abnormal Lab Results - Last 24 Hours (Table) 11/02/20 11/03/20 11/03/20 Range/Units 13:35 09:37 11:15 WBC (3.8-10.6) k/uL RBC (4.30-5.90) m/uL Hgb (13.0-17.5) gm/dL Hct (39.0-53.0) % Plt Count (150-450) k/uL Neutrophils # (1.3-7.7) k/uL Lymphocytes # (1.0-4.8) k/uL PT (9.0-12.0) sec INR (<1.2) APTT (22.0-30.0) sec ABG pH 7.34 L (7.35-7.45) ABG pCO2 (35-45) mmHg ABG pO2 384 H 171 H (83-108) mmHg ABG HCO3 (21-25) mmol/L ABG Total CO2 26 H 26 H (19-24) mmol/L ABG O2 Saturation 100.0 H 99.5 H (94-97) % ABG Hematocrit (34.0-46.0) % ABG Potassium (3.4-4.5) mmol/L ABG Ionized Calcium (4.5-5.3) mg/dL ABG Glucose 107 H (75-99) mg/dL Hemoglobin (13.0-17.5) gm/dL Sodium (137-145) mmol/L Creatinine (0.66-1.25) mg/dL Glucose (74-99) mg/dL POC Glucose (mg/dL) (75-99) mg/dL Calcium (8.4-10.2) mg/dL Magnesium (1.6-2.3) mg/dL Total Bilirubin (0.2-1.3) mg/dL Total Protein (6.3-8.2) g/dL Albumin (3.5-5.0) g/dL Arterial Blood Potassium (3.4-4.5) mmol/L Arterial Blood Glucose 107 H (75-99) mg/dL Crossmatch See Detail 11/03/20 11/03/20 11/03/20 Range/Units 12:16 12:49 13:21 WBC (3.8-10.6) k/uL RBC (4.30-5.90) m/uL Hgb (13.0-17.5) gm/dL Hct (39.0-53.0) % Plt Count (150-450) k/uL Neutrophils # (1.3-7.7) k/uL Lymphocytes # (1.0-4.8) k/uL PT (9.0-12.0) sec INR (<1.2) APTT (22.0-30.0) sec ABG pH (7.35-7.45) ABG pCO2 (35-45) mmHg ABG pO2 378 H 407 H 322 H (83-108) mmHg ABG HCO3 (21-25) mmol/L ABG Total CO2 25 H 25 H 26 H (19-24) mmol/L ABG O2 Saturation 100.0 H 100.0 H 100.0 H (94-97) % ABG Hematocrit 33 L 32 L (34.0-46.0) % ABG Potassium 5.0 H 4.8 H (3.4-4.5) mmol/L ABG Ionized Calcium 4.1 L 4.1 L 4.1 L (4.5-5.3) mg/dL ABG Glucose 119 H 119 H (75-99) mg/dL Hemoglobin 10.7 L 10.9 L 10.6 L (13.0-17.5) gm/dL Sodium (137-145) mmol/L Creatinine (0.66-1.25) mg/dL Glucose (74-99) mg/dL POC Glucose (mg/dL) (75-99) mg/dL Calcium (8.4-10.2) mg/dL Magnesium (1.6-2.3) mg/dL Total Bilirubin (0.2-1.3) mg/dL Total Protein (6.3-8.2) g/dL Albumin (3.5-5.0) g/dL Arterial Blood Potassium 5.0 H 4.8 H (3.4-4.5) mmol/L Arterial Blood Glucose 119 H 119 H (75-99) mg/dL Crossmatch 11/03/20 11/03/20 11/03/20 Range/Units 15:02 15:41 15:54 WBC 13.7 H (3.8-10.6) k/uL RBC 4.07 L (4.30-5.90) m/uL Hgb (13.0-17.5) gm/dL Hct 38.7 L (39.0-53.0) % Plt Count 103 L (150-450) k/uL Neutrophils # 11.8 H (1.3-7.7) k/uL Lymphocytes # 0.9 L (1.0-4.8) k/uL PT (9.0-12.0) sec INR (<1.2) APTT (22.0-30.0) sec ABG pH (7.35-7.45) ABG pCO2 (35-45) mmHg ABG pO2 78 L (83-108) mmHg ABG HCO3 (21-25) mmol/L ABG Total CO2 26 H (19-24) mmol/L ABG O2 Saturation (94-97) % ABG Hematocrit (34.0-46.0) % ABG Potassium (3.4-4.5) mmol/L ABG Ionized Calcium (4.5-5.3) mg/dL ABG Glucose 118 H (75-99) mg/dL Hemoglobin 12.2 L (13.0-17.5) gm/dL Sodium (137-145) mmol/L Creatinine (0.66-1.25) mg/dL Glucose (74-99) mg/dL POC Glucose (mg/dL) 111 H (75-99) mg/dL Calcium (8.4-10.2) mg/dL Magnesium (1.6-2.3) mg/dL Total Bilirubin (0.2-1.3) mg/dL Total Protein (6.3-8.2) g/dL Albumin (3.5-5.0) g/dL Arterial Blood Potassium (3.4-4.5) mmol/L Arterial Blood Glucose 118 H (75-99) mg/dL Crossmatch 11/03/20 11/03/20 11/03/20 Range/Units 15:54 15:54 16:10 WBC (3.8-10.6) k/uL RBC (4.30-5.90) m/uL Hgb (13.0-17.5) gm/dL Hct (39.0-53.0) % Plt Count (150-450) k/uL Neutrophils # (1.3-7.7) k/uL Lymphocytes # (1.0-4.8) k/uL PT 12.6 H (9.0-12.0) sec INR 1.2 H (<1.2) APTT 33.7 H (22.0-30.0) sec ABG pH 7.33 L (7.35-7.45) ABG pCO2 48 H (35-45) mmHg ABG pO2 342 H (83-108) mmHg ABG HCO3 26 H (21-25) mmol/L ABG Total CO2 27 H (19-24) mmol/L ABG O2 Saturation 99.7 H (94-97) % ABG Hematocrit (34.0-46.0) % ABG Potassium (3.4-4.5) mmol/L ABG Ionized Calcium (4.5-5.3) mg/dL ABG Glucose (75-99) mg/dL Hemoglobin (13.0-17.5) gm/dL Sodium 135 L (137-145) mmol/L Creatinine 0.59 L (0.66-1.25) mg/dL Glucose 120 H (74-99) mg/dL POC Glucose (mg/dL) (75-99) mg/dL Calcium 7.9 L (8.4-10.2) mg/dL Magnesium 2.4 H (1.6-2.3) mg/dL Total Bilirubin 1.7 H (0.2-1.3) mg/dL Total Protein 4.6 L (6.3-8.2) g/dL Albumin 2.6 L (3.5-5.0) g/dL Arterial Blood Potassium (3.4-4.5) mmol/L Arterial Blood Glucose (75-99) mg/dL Crossmatch 11/03/20 11/03/20 11/03/20 Range/Units 16:29 17:09 18:02 WBC 14.5 H (3.8-10.6) k/uL RBC (4.30-5.90) m/uL Hgb (13.0-17.5) gm/dL Hct (39.0-53.0) % Plt Count 130 L (150-450) k/uL Neutrophils # 11.9 H (1.3-7.7) k/uL Lymphocytes # (1.0-4.8) k/uL PT (9.0-12.0) sec INR (<1.2) APTT (22.0-30.0) sec ABG pH (7.35-7.45) ABG pCO2 (35-45) mmHg ABG pO2 (83-108) mmHg ABG HCO3 (21-25) mmol/L ABG Total CO2 (19-24) mmol/L ABG O2 Saturation (94-97) % ABG Hematocrit (34.0-46.0) % ABG Potassium (3.4-4.5) mmol/L ABG Ionized Calcium (4.5-5.3) mg/dL ABG Glucose (75-99) mg/dL Hemoglobin (13.0-17.5) gm/dL Sodium (137-145) mmol/L Creatinine (0.66-1.25) mg/dL Glucose (74-99) mg/dL POC Glucose (mg/dL) 105 H 108 H (75-99) mg/dL Calcium (8.4-10.2) mg/dL Magnesium (1.6-2.3) mg/dL Total Bilirubin (0.2-1.3) mg/dL Total Protein (6.3-8.2) g/dL Albumin (3.5-5.0) g/dL Arterial Blood Potassium (3.4-4.5) mmol/L Arterial Blood Glucose (75-99) mg/dL Crossmatch 11/03/20 11/03/20 11/03/20 Range/Units 18:03 19:02 19:59 WBC (3.8-10.6) k/uL RBC (4.30-5.90) m/uL Hgb (13.0-17.5) gm/dL Hct (39.0-53.0) % Plt Count (150-450) k/uL Neutrophils # (1.3-7.7) k/uL Lymphocytes # (1.0-4.8) k/uL PT (9.0-12.0) sec INR (<1.2) APTT (22.0-30.0) sec ABG pH (7.35-7.45) ABG pCO2 (35-45) mmHg ABG pO2 (83-108) mmHg ABG HCO3 (21-25) mmol/L ABG Total CO2 (19-24) mmol/L ABG O2 Saturation (94-97) % ABG Hematocrit (34.0-46.0) % ABG Potassium (3.4-4.5) mmol/L ABG Ionized Calcium (4.5-5.3) mg/dL ABG Glucose (75-99) mg/dL Hemoglobin (13.0-17.5) gm/dL Sodium (137-145) mmol/L Creatinine (0.66-1.25) mg/dL Glucose (74-99) mg/dL POC Glucose (mg/dL) 140 H 133 H 133 H (75-99) mg/dL Calcium (8.4-10.2) mg/dL Magnesium (1.6-2.3) mg/dL Total Bilirubin (0.2-1.3) mg/dL Total Protein (6.3-8.2) g/dL Albumin (3.5-5.0) g/dL Arterial Blood Potassium (3.4-4.5) mmol/L Arterial Blood Glucose (75-99) mg/dL Crossmatch 11/03/20 11/03/20 11/03/20 Range/Units 20:50 20:55 21:59 WBC 12.9 H (3.8-10.6) k/uL RBC 3.87 L (4.30-5.90) m/uL Hgb 12.5 L (13.0-17.5) gm/dL Hct 36.6 L (39.0-53.0) % Plt Count 110 L (150-450) k/uL Neutrophils # 11.3 H (1.3-7.7) k/uL Lymphocytes # 0.7 L (1.0-4.8) k/uL PT (9.0-12.0) sec INR (<1.2) APTT (22.0-30.0) sec ABG pH (7.35-7.45) ABG pCO2 (35-45) mmHg ABG pO2 (83-108) mmHg ABG HCO3 (21-25) mmol/L ABG Total CO2 (19-24) mmol/L ABG O2 Saturation (94-97) % ABG Hematocrit (34.0-46.0) % ABG Potassium (3.4-4.5) mmol/L ABG Ionized Calcium (4.5-5.3) mg/dL ABG Glucose (75-99) mg/dL Hemoglobin (13.0-17.5) gm/dL Sodium (137-145) mmol/L Creatinine (0.66-1.25) mg/dL Glucose (74-99) mg/dL POC Glucose (mg/dL) 131 H 138 H (75-99) mg/dL Calcium (8.4-10.2) mg/dL Magnesium (1.6-2.3) mg/dL Total Bilirubin (0.2-1.3) mg/dL Total Protein (6.3-8.2) g/dL Albumin (3.5-5.0) g/dL Arterial Blood Potassium (3.4-4.5) mmol/L Arterial Blood Glucose (75-99) mg/dL Crossmatch 11/03/20 11/03/20 11/04/20 Range/Units 22:57 23:35 00:09 WBC (3.8-10.6) k/uL RBC (4.30-5.90) m/uL Hgb (13.0-17.5) gm/dL Hct (39.0-53.0) % Plt Count (150-450) k/uL Neutrophils # (1.3-7.7) k/uL Lymphocytes # (1.0-4.8) k/uL PT (9.0-12.0) sec INR (<1.2) APTT (22.0-30.0) sec ABG pH (7.35-7.45) ABG pCO2 (35-45) mmHg ABG pO2 131 H (83-108) mmHg ABG HCO3 (21-25) mmol/L ABG Total CO2 25 H (19-24) mmol/L ABG O2 Saturation 98.7 H (94-97) % ABG Hematocrit (34.0-46.0) % ABG Potassium (3.4-4.5) mmol/L ABG Ionized Calcium (4.5-5.3) mg/dL ABG Glucose (75-99) mg/dL Hemoglobin (13.0-17.5) gm/dL Sodium (137-145) mmol/L Creatinine (0.66-1.25) mg/dL Glucose (74-99) mg/dL POC Glucose (mg/dL) 133 H 134 H (75-99) mg/dL Calcium (8.4-10.2) mg/dL Magnesium (1.6-2.3) mg/dL Total Bilirubin (0.2-1.3) mg/dL Total Protein (6.3-8.2) g/dL Albumin (3.5-5.0) g/dL Arterial Blood Potassium (3.4-4.5) mmol/L Arterial Blood Glucose (75-99) mg/dL Crossmatch 11/04/20 11/04/20 11/04/20 Range/Units 01:00 01:56 03:06 WBC (3.8-10.6) k/uL RBC (4.30-5.90) m/uL Hgb (13.0-17.5) gm/dL Hct (39.0-53.0) % Plt Count (150-450) k/uL Neutrophils # (1.3-7.7) k/uL Lymphocytes # (1.0-4.8) k/uL PT (9.0-12.0) sec INR (<1.2) APTT (22.0-30.0) sec ABG pH (7.35-7.45) ABG pCO2 (35-45) mmHg ABG pO2 (83-108) mmHg ABG HCO3 (21-25) mmol/L ABG Total CO2 (19-24) mmol/L ABG O2 Saturation (94-97) % ABG Hematocrit (34.0-46.0) % ABG Potassium (3.4-4.5) mmol/L ABG Ionized Calcium (4.5-5.3) mg/dL ABG Glucose (75-99) mg/dL Hemoglobin (13.0-17.5) gm/dL Sodium (137-145) mmol/L Creatinine (0.66-1.25) mg/dL Glucose (74-99) mg/dL POC Glucose (mg/dL) 139 H 137 H 133 H (75-99) mg/dL Calcium (8.4-10.2) mg/dL Magnesium (1.6-2.3) mg/dL Total Bilirubin (0.2-1.3) mg/dL Total Protein (6.3-8.2) g/dL Albumin (3.5-5.0) g/dL Arterial Blood Potassium (3.4-4.5) mmol/L Arterial Blood Glucose (75-99) mg/dL Crossmatch 11/04/20 11/04/20 11/04/20 Range/Units 03:55 03:55 03:55 WBC 11.8 H (3.8-10.6) k/uL RBC 3.43 L (4.30-5.90) m/uL Hgb 11.1 L (13.0-17.5) gm/dL Hct 32.4 L (39.0-53.0) % Plt Count 106 L (150-450) k/uL Neutrophils # 9.7 H (1.3-7.7) k/uL Lymphocytes # (1.0-4.8) k/uL PT (9.0-12.0) sec INR (<1.2) APTT (22.0-30.0) sec ABG pH (7.35-7.45) ABG pCO2 (35-45) mmHg ABG pO2 (83-108) mmHg ABG HCO3 (21-25) mmol/L ABG Total CO2 (19-24) mmol/L ABG O2 Saturation (94-97) % ABG Hematocrit (34.0-46.0) % ABG Potassium (3.4-4.5) mmol/L ABG Ionized Calcium (4.5-5.3) mg/dL ABG Glucose (75-99) mg/dL Hemoglobin (13.0-17.5) gm/dL Sodium 135 L (137-145) mmol/L Creatinine (0.66-1.25) mg/dL Glucose 128 H (74-99) mg/dL POC Glucose (mg/dL) 125 H (75-99) mg/dL Calcium 7.9 L (8.4-10.2) mg/dL Magnesium (1.6-2.3) mg/dL Total Bilirubin 2.2 H (0.2-1.3) mg/dL Total Protein 4.7 L (6.3-8.2) g/dL Albumin 2.9 L (3.5-5.0) g/dL Arterial Blood Potassium (3.4-4.5) mmol/L Arterial Blood Glucose (75-99) mg/dL Crossmatch 11/04/20 11/04/20 11/04/20 Range/Units 04:58 06:03 06:55 WBC (3.8-10.6) k/uL RBC (4.30-5.90) m/uL Hgb (13.0-17.5) gm/dL Hct (39.0-53.0) % Plt Count (150-450) k/uL Neutrophils # (1.3-7.7) k/uL Lymphocytes # (1.0-4.8) k/uL PT (9.0-12.0) sec INR (<1.2) APTT (22.0-30.0) sec ABG pH (7.35-7.45) ABG pCO2 (35-45) mmHg ABG pO2 (83-108) mmHg ABG HCO3 (21-25) mmol/L ABG Total CO2 (19-24) mmol/L ABG O2 Saturation (94-97) % ABG Hematocrit (34.0-46.0) % ABG Potassium (3.4-4.5) mmol/L ABG Ionized Calcium (4.5-5.3) mg/dL ABG Glucose (75-99) mg/dL Hemoglobin (13.0-17.5) gm/dL Sodium (137-145) mmol/L Creatinine (0.66-1.25) mg/dL Glucose (74-99) mg/dL POC Glucose (mg/dL) 126 H 124 H 125 H (75-99) mg/dL Calcium (8.4-10.2) mg/dL Magnesium (1.6-2.3) mg/dL Total Bilirubin (0.2-1.3) mg/dL Total Protein (6.3-8.2) g/dL Albumin (3.5-5.0) g/dL Arterial Blood Potassium (3.4-4.5) mmol/L Arterial Blood Glucose (75-99) mg/dL Crossmatch 11/04/20 Range/Units 07:52 WBC (3.8-10.6) k/uL RBC (4.30-5.90) m/uL Hgb (13.0-17.5) gm/dL Hct (39.0-53.0) % Plt Count (150-450) k/uL Neutrophils # (1.3-7.7) k/uL Lymphocytes # (1.0-4.8) k/uL PT (9.0-12.0) sec INR (<1.2) APTT (22.0-30.0) sec ABG pH (7.35-7.45) ABG pCO2 (35-45) mmHg ABG pO2 (83-108) mmHg ABG HCO3 (21-25) mmol/L ABG Total CO2 (19-24) mmol/L ABG O2 Saturation (94-97) % ABG Hematocrit (34.0-46.0) % ABG Potassium (3.4-4.5) mmol/L ABG Ionized Calcium (4.5-5.3) mg/dL ABG Glucose (75-99) mg/dL Hemoglobin (13.0-17.5) gm/dL Sodium (137-145) mmol/L Creatinine (0.66-1.25) mg/dL Glucose (74-99) mg/dL POC Glucose (mg/dL) 121 H (75-99) mg/dL Calcium (8.4-10.2) mg/dL Magnesium (1.6-2.3) mg/dL Total Bilirubin (0.2-1.3) mg/dL Total Protein (6.3-8.2) g/dL Albumin (3.5-5.0) g/dL Arterial Blood Potassium (3.4-4.5) mmol/L Arterial Blood Glucose (75-99) mg/dL Crossmatch Microbiology - Last 24 Hours (Table) 11/02/20 16:41 Nasal Screen MRSA/MSSA - Final Nasal Swab Assessment and Plan Assessment: Assessment #1 severe triple-vessel CAD and status post CABG #2 known CAD and prior stenting in the past #3 hypertension #4 dyslipidemia Plan #1 continue dual antiplatelet therapy #2 advised to increase the dose of Lipitor to 80 mg by mouth daily at bedtime #3 continue holding the beta bc in view of the first degree AV block #4 continue monitor the kidney function and electrolytes #5 monitor the urine output #6 follow-up with the patient
[2020-11-04] MEDS: MUPIROCIN 2% OINT 22 GM TUBE NASAL SCH ×2 (08:34→20:33)
[2020-11-04] MEDS: FOLIC ACID 1 MG TAB PO SCH (08:34)
[2020-11-04] MEDS: ATORVASTATIN 40 MG TAB PO SCH (08:34)
[2020-11-04] MEDS: ASPIRIN 325 MG TAB PO SCH (08:34)
[2020-11-04] MEDS: THIAMINE 100 MG TAB PO SCH (08:35)
[2020-11-04] MEDS: HEPARIN SODIUM,PORCINE/PF 5,000 UNIT/0.5 ML SYRINGE SQ SCH ×3 (08:35→23:49)
[2020-11-04] MEDS: CLOPIDOGREL 75 MG TAB PO SCH (08:35)
[2020-11-04] MEDS ORDERED: METOPROLOL TARTRATE 12.5 MG TAB PO SCH (09:00)
[2020-11-04] MEDS ORDERED: bisacodyL 10 MG SUPP RECTAL PRN (09:00)
[2020-11-04] MEDS ORDERED: PANTOPRAZOLE 40 MG/10 ML VIAL IVP SCH (09:00)
[2020-11-04] MEDS ORDERED: MAGNESIUM HYDROXIDE 2,400 MG/10 ML CUP PO PRN (09:00)
--- NOTE | 2020-11-04 09:03 | P.PN ---
Subjective Progress Note Date: 11/04/20 Principal diagnosis: Symptomatic multivessel coronary artery disease, non-STEMI this admission. Previous medical history of CAD with prior stenting 15 years ago, hypertension, hyperlipidemia, paroxysmal atrial fibrillation with refusal of anticoagulation, hypothyroidism, obstructive sleep apnea with home CPAP use, prostate cancer with radiation seed treatment and subsequent bladder and bowel incontinence, diverticulosis, left leg cellulitis in April 2021, bilateral hip replacements with repeat surgery due to osteomyelitis, previous tobacco dependence, daily wine consumption, nightly cannabis use POD #1 coronary bypass grafting 3 vessels, left internal mammary artery to the left anterior descending artery, reverse saphenous vein graft to the obtuse marginal artery, reverse saphenous vein graft to posterior lateral branch of the right coronary artery, endoscopic harvesting of the right greater saphenous vein, ligation of the left atrial appendage using a 35 mm AtriClip, epi-aortic ultrasound and intraoperative transesophageal echocardiogram. Postoperative acute blood loss anemia and thrombocytopenia, expected given hemodilution and cardiopulmonary bypass pump The patient is currently sitting up in a recliner in the intensive care unit in no acute distress. He was successfully extubated this morning at midnight. States pain is controlled on current medication regimen, denies shortness of breath. Currently in sinus rhythm with long first degree AV block, hemodynamically stable on Primacor and Levophed. He is actively attempting incentive spirometry use and achieving 1250 mL. Had a relatively uneventful night. Mediastinal, left pleural chest tubes, Silsbee/Cordis, arterial line all present. No new concerns. Objective - Vital Signs Vital signs: Vital Signs Temp 97.5 F L 11/03/20 17:00 Pulse 90 11/04/20 07:38 Resp 13 11/04/20 07:00 BP 104/54 11/04/20 07:00 Pulse Ox 96 11/04/20 07:00 Intake & Output 11/03/20 11/04/20 11/04/20 18:59 06:59 18:59 Intake Total 334.131 6154.585 101.75 Output Total 2200 888 80 Balance -5120.477 0251.585 21.75 Weight 102.8 kg Intake: IV 320 2038.25 101.75 .9NS Cardiac Output 40 340 30 .9NS Pressure bag 27 108 9 ACETAMINOPHEN IV (For NPO 100 ) 1,000 mg In Empty Bag 1 bag @ 400 mls/hr IVPB Q6HR [facility] Rx#:[id number] Albumin Human 5% 250 ml 750 In Empty Bag 1 bag @ 250 mls/hr IVPB Q1HR PRN Rx#: [id number] Lactated Ringers 1,000 ml 150 550 50 @ 50 mls/hr IV .Q20H KEVIN Rx#:[id number] Nitroglycerine 16.5 1.5 Primacor 123.75 11.25 ceFAZolin 2 gm In Sodium 50 Chloride 0.9% 50 ml @ 100 mls/hr IVPB Q8H KEVIN Rx#: [id number] Intake, IV Titration 185.175 421.335 Amount ACETAMINOPHEN IV (For NPO 100 ) 1,000 mg In Empty Bag 1 bag @ 400 mls/hr IVPB Q6HR KEVIN Rx#:[id number] Clevidipine Butyrate 25 6.934 43.066 mg In Empty Bag 1 bag @ 1 MG/HR 2 mls/hr IV .Q24H [facility] Rx#:[id number] Insulin Regular 100 unit 1.187 In Sodium Chloride 0.9% 100 ml @ Per Protocol IV .Q0M KEVIN Rx#:[id number] Milrinone-D5w Pmx 20 mg 84.756 In Dextrose/Water 1 100ml .bag @ 0.375 MCG/KG/MIN 11.226 mls/hr IV .Q8H55M [facility]EV[facility] Rx#:[id number] Norepinephrine 4 mg In 218.362 Sodium Chloride 0.9% 250 ml @ 0.05 MCG/KG/MIN 19. 01 mls/hr IV .[id number] [facility]EV[facility] Rx#:[id number] ceFAZolin 2 gm In Sodium 50 Chloride 0.9% 50 ml @ 100 mls/hr IVPB Q8H [facility]EV[facility] Rx#: [id number] propofoL 1,000 mg In 28.241 73.964 Empty Bag 1 bag @ Titrate IV .Q0M KEVIN Rx#: [id number] Output: Chest Tube Drainage 220 505 60 Left Chest Tube 100 245 10 Mediastinal Pawel Tube X 2 120 260 50 Urine 780 383 20 Estimated Blood Loss 1200 Other: Voiding Method Toilet Indwelling Catheter ABP, PAP, CO, CI - Last Documented Arterial Blood Pressure 108/55 Pulmonary Artery Pressure 24/11 Cardiac Output 5.2 Cardiac Index 2.4 - Exam CONSTITUTIONAL: Appears comfortable, cooperative, no acute distress RESPIRATORY: Lungs sounds diminished bilaterally. Respirations even, nonlabored. Currently on 2 L nasal cannula with oxygen saturation 94%. Able to achieve 1000 mL on incentive spirometry. Strong cough. CARDIOVASCULAR: S1, S2 present. Regular rate and rhythm, sinus rhythm with first-degree AV block on telemetry. Sternum stable. Palpable peripheral pulses bilaterally. Trace bilateral lower extremity edema present. No calf pain or tenderness noted. Heart hugger in place with patient demonstrating appropriate use. Antiembolism stockings, SCDs present. GASTROINTESTINAL: Abdomen soft, nontender, nondistended. Hypoactive bowel sounds present 4 quadrants. Tolerating clear liquids. Positive flatus GENITOURINARY: Granados present draining clear, yellow urine. Output overnight 25-30 mL per hour INTEGUMENTARY: Skin is warm and dry with evidence of good perfusion. Anterior chest incision well approximated and covered with dry intact dressing. EVH site well approximated without redness or drainage. NEUROLOGIC: Cranial nerves II through XII intact MUSKULOSKELETAL: Able to move all extremities, strength equal bilaterally PSYCHIATRIC: Alert and oriented to person place and time, appropriate affect, intact judgment and insight INVASIVE LINES AND TUBES: Mediastinal/left pleural chest tubes present and connected to wall suction, no air leaks present. Mediastinal tube with 80 mL serosanguineous drainage overnight, 400 mL since surgery. Left pleural chest tube with 140 mL serosanguineous drainage overnight, 380 mL in the last 24 hours. A/V epicardial pacemaker wires present, grounded. Right internal jugular Silsbee/Cordis, right radial arterial line present. Last CO/CI 5.2/2.4, PA 26/9, CVP 6. - Allied health notes Allied health notes reviewed: nursing - Labs CBC & Chem 7: 11/04/20 03:55 11/04/20 03:55 Labs: Abnormal Lab Results - Last 24 Hours (Table) 11/02/20 11/03/20 11/03/20 Range/Units 13:35 09:37 11:15 WBC (3.8-10.6) k/uL RBC (4.30-5.90) m/uL Hgb (13.0-17.5) gm/dL Hct (39.0-53.0) % Plt Count (150-450) k/uL Neutrophils # (1.3-7.7) k/uL Lymphocytes # (1.0-4.8) k/uL PT (9.0-12.0) sec INR (<1.2) APTT (22.0-30.0) sec ABG pH 7.34 L (7.35-7.45) ABG pCO2 (35-45) mmHg ABG pO2 384 H 171 H (83-108) mmHg ABG HCO3 (21-25) mmol/L ABG Total CO2 26 H 26 H (19-24) mmol/L ABG O2 Saturation 100.0 H 99.5 H (94-97) % ABG Hematocrit (34.0-46.0) % ABG Potassium (3.4-4.5) mmol/L ABG Ionized Calcium (4.5-5.3) mg/dL ABG Glucose 107 H (75-99) mg/dL Hemoglobin (13.0-17.5) gm/dL Sodium (137-145) mmol/L Creatinine (0.66-1.25) mg/dL Glucose (74-99) mg/dL POC Glucose (mg/dL) (75-99) mg/dL Calcium (8.4-10.2) mg/dL Magnesium (1.6-2.3) mg/dL Total Bilirubin (0.2-1.3) mg/dL Total Protein (6.3-8.2) g/dL Albumin (3.5-5.0) g/dL Arterial Blood Potassium (3.4-4.5) mmol/L Arterial Blood Glucose 107 H (75-99) mg/dL Crossmatch See Detail 11/03/20 11/03/20 11/03/20 Range/Units 12:16 12:49 13:21 WBC (3.8-10.6) k/uL RBC (4.30-5.90) m/uL Hgb (13.0-17.5) gm/dL Hct (39.0-53.0) % Plt Count (150-450) k/uL Neutrophils # (1.3-7.7) k/uL Lymphocytes # (1.0-4.8) k/uL PT (9.0-12.0) sec INR (<1.2) APTT (22.0-30.0) sec ABG pH (7.35-7.45) ABG pCO2 (35-45) mmHg ABG pO2 378 H 407 H 322 H (83-108) mmHg ABG HCO3 (21-25) mmol/L ABG Total CO2 25 H 25 H 26 H (19-24) mmol/L ABG O2 Saturation 100.0 H 100.0 H 100.0 H (94-97) % ABG Hematocrit 33 L 32 L (34.0-46.0) % ABG Potassium 5.0 H 4.8 H (3.4-4.5) mmol/L ABG Ionized Calcium 4.1 L 4.1 L 4.1 L (4.5-5.3) mg/dL ABG Glucose 119 H 119 H (75-99) mg/dL Hemoglobin 10.7 L 10.9 L 10.6 L (13.0-17.5) gm/dL Sodium (137-145) mmol/L Creatinine (0.66-1.25) mg/dL Glucose (74-99) mg/dL POC Glucose (mg/dL) (75-99) mg/dL Calcium (8.4-10.2) mg/dL Magnesium (1.6-2.3) mg/dL Total Bilirubin (0.2-1.3) mg/dL Total Protein (6.3-8.2) g/dL Albumin (3.5-5.0) g/dL Arterial Blood Potassium 5.0 H 4.8 H (3.4-4.5) mmol/L Arterial Blood Glucose 119 H 119 H (75-99) mg/dL Crossmatch 11/03/20 11/03/20 11/03/20 Range/Units 15:02 15:41 15:54 WBC 13.7 H (3.8-10.6) k/uL RBC 4.07 L (4.30-5.90) m/uL Hgb (13.0-17.5) gm/dL Hct 38.7 L (39.0-53.0) % Plt Count 103 L (150-450) k/uL Neutrophils # 11.8 H (1.3-7.7) k/uL Lymphocytes # 0.9 L (1.0-4.8) k/uL PT (9.0-12.0) sec INR (<1.2) APTT (22.0-30.0) sec ABG pH (7.35-7.45) ABG pCO2 (35-45) mmHg ABG pO2 78 L (83-108) mmHg ABG HCO3 (21-25) mmol/L ABG Total CO2 26 H (19-24) mmol/L ABG O2 Saturation (94-97) % ABG Hematocrit (34.0-46.0) % ABG Potassium (3.4-4.5) mmol/L ABG Ionized Calcium (4.5-5.3) mg/dL ABG Glucose 118 H (75-99) mg/dL Hemoglobin 12.2 L (13.0-17.5) gm/dL Sodium (137-145) mmol/L Creatinine (0.66-1.25) mg/dL Glucose (74-99) mg/dL POC Glucose (mg/dL) 111 H (75-99) mg/dL Calcium (8.4-10.2) mg/dL Magnesium (1.6-2.3) mg/dL Total Bilirubin (0.2-1.3) mg/dL Total Protein (6.3-8.2) g/dL Albumin (3.5-5.0) g/dL Arterial Blood Potassium (3.4-4.5) mmol/L Arterial Blood Glucose 118 H (75-99) mg/dL Crossmatch 11/03/20 11/03/20 11/03/20 Range/Units 15:54 15:54 16:10 WBC (3.8-10.6) k/uL RBC (4.30-5.90) m/uL Hgb (13.0-17.5) gm/dL Hct (39.0-53.0) % Plt Count (150-450) k/uL Neutrophils # (1.3-7.7) k/uL Lymphocytes # (1.0-4.8) k/uL PT 12.6 H (9.0-12.0) sec INR 1.2 H (<1.2) APTT 33.7 H (22.0-30.0) sec ABG pH 7.33 L (7.35-7.45) ABG pCO2 48 H (35-45) mmHg ABG pO2 342 H (83-108) mmHg ABG HCO3 26 H (21-25) mmol/L ABG Total CO2 27 H (19-24) mmol/L ABG O2 Saturation 99.7 H (94-97) % ABG Hematocrit (34.0-46.0) % ABG Potassium (3.4-4.5) mmol/L ABG Ionized Calcium (4.5-5.3) mg/dL ABG Glucose (75-99) mg/dL Hemoglobin (13.0-17.5) gm/dL Sodium 135 L (137-145) mmol/L Creatinine 0.59 L (0.66-1.25) mg/dL Glucose 120 H (74-99) mg/dL POC Glucose (mg/dL) (75-99) mg/dL Calcium 7.9 L (8.4-10.2) mg/dL Magnesium 2.4 H (1.6-2.3) mg/dL Total Bilirubin 1.7 H (0.2-1.3) mg/dL Total Protein 4.6 L (6.3-8.2) g/dL Albumin 2.6 L (3.5-5.0) g/dL Arterial Blood Potassium (3.4-4.5) mmol/L Arterial Blood Glucose (75-99) mg/dL Crossmatch 11/03/20 11/03/20 11/03/20 Range/Units 16:29 17:09 18:02 WBC 14.5 H (3.8-10.6) k/uL RBC (4.30-5.90) m/uL Hgb (13.0-17.5) gm/dL Hct (39.0-53.0) % Plt Count 130 L (150-450) k/uL Neutrophils # 11.9 H (1.3-7.7) k/uL Lymphocytes # (1.0-4.8) k/uL PT (9.0-12.0) sec INR (<1.2) APTT (22.0-30.0) sec ABG pH (7.35-7.45) ABG pCO2 (35-45) mmHg ABG pO2 (83-108) mmHg ABG HCO3 (21-25) mmol/L ABG Total CO2 (19-24) mmol/L ABG O2 Saturation (94-97) % ABG Hematocrit (34.0-46.0) % ABG Potassium (3.4-4.5) mmol/L ABG Ionized Calcium (4.5-5.3) mg/dL ABG Glucose (75-99) mg/dL Hemoglobin (13.0-17.5) gm/dL Sodium (137-145) mmol/L Creatinine (0.66-1.25) mg/dL Glucose (74-99) mg/dL POC Glucose (mg/dL) 105 H 108 H (75-99) mg/dL Calcium (8.4-10.2) mg/dL Magnesium (1.6-2.3) mg/dL Total Bilirubin (0.2-1.3) mg/dL Total Protein (6.3-8.2) g/dL Albumin (3.5-5.0) g/dL Arterial Blood Potassium (3.4-4.5) mmol/L Arterial Blood Glucose (75-99) mg/dL Crossmatch 11/03/20 11/03/20 11/03/20 Range/Units 18:03 19:02 19:59 WBC (3.8-10.6) k/uL RBC (4.30-5.90) m/uL Hgb (13.0-17.5) gm/dL Hct (39.0-53.0) % Plt Count (150-450) k/uL Neutrophils # (1.3-7.7) k/uL Lymphocytes # (1.0-4.8) k/uL PT (9.0-12.0) sec INR (<1.2) APTT (22.0-30.0) sec ABG pH (7.35-7.45) ABG pCO2 (35-45) mmHg ABG pO2 (83-108) mmHg ABG HCO3 (21-25) mmol/L ABG Total CO2 (19-24) mmol/L ABG O2 Saturation (94-97) % ABG Hematocrit (34.0-46.0) % ABG Potassium (3.4-4.5) mmol/L ABG Ionized Calcium (4.5-5.3) mg/dL ABG Glucose (75-99) mg/dL Hemoglobin (13.0-17.5) gm/dL Sodium (137-145) mmol/L Creatinine (0.66-1.25) mg/dL Glucose (74-99) mg/dL POC Glucose (mg/dL) 140 H 133 H 133 H (75-99) mg/dL Calcium (8.4-10.2) mg/dL Magnesium (1.6-2.3) mg/dL Total Bilirubin (0.2-1.3) mg/dL Total Protein (6.3-8.2) g/dL Albumin (3.5-5.0) g/dL Arterial Blood Potassium (3.4-4.5) mmol/L Arterial Blood Glucose (75-99) mg/dL Crossmatch 11/03/20 11/03/20 11/03/20 Range/Units 20:50 20:55 21:59 WBC 12.9 H (3.8-10.6) k/uL RBC 3.87 L (4.30-5.90) m/uL Hgb 12.5 L (13.0-17.5) gm/dL Hct 36.6 L (39.0-53.0) % Plt Count 110 L (150-450) k/uL Neutrophils # 11.3 H (1.3-7.7) k/uL Lymphocytes # 0.7 L (1.0-4.8) k/uL PT (9.0-12.0) sec INR (<1.2) APTT (22.0-30.0) sec ABG pH (7.35-7.45) ABG pCO2 (35-45) mmHg ABG pO2 (83-108) mmHg ABG HCO3 (21-25) mmol/L ABG Total CO2 (19-24) mmol/L ABG O2 Saturation (94-97) % ABG Hematocrit (34.0-46.0) % ABG Potassium (3.4-4.5) mmol/L ABG Ionized Calcium (4.5-5.3) mg/dL ABG Glucose (75-99) mg/dL Hemoglobin (13.0-17.5) gm/dL Sodium (137-145) mmol/L Creatinine (0.66-1.25) mg/dL Glucose (74-99) mg/dL POC Glucose (mg/dL) 131 H 138 H (75-99) mg/dL Calcium (8.4-10.2) mg/dL Magnesium (1.6-2.3) mg/dL Total Bilirubin (0.2-1.3) mg/dL Total Protein (6.3-8.2) g/dL Albumin (3.5-5.0) g/dL Arterial Blood Potassium (3.4-4.5) mmol/L Arterial Blood Glucose (75-99) mg/dL Crossmatch 11/03/20 11/03/20 11/04/20 Range/Units 22:57 23:35 00:09 WBC (3.8-10.6) k/uL RBC (4.30-5.90) m/uL Hgb (13.0-17.5) gm/dL Hct (39.0-53.0) % Plt Count (150-450) k/uL Neutrophils # (1.3-7.7) k/uL Lymphocytes # (1.0-4.8) k/uL PT (9.0-12.0) sec INR (<1.2) APTT (22.0-30.0) sec ABG pH (7.35-7.45) ABG pCO2 (35-45) mmHg ABG pO2 131 H (83-108) mmHg ABG HCO3 (21-25) mmol/L ABG Total CO2 25 H (19-24) mmol/L ABG O2 Saturation 98.7 H (94-97) % ABG Hematocrit (34.0-46.0) % ABG Potassium (3.4-4.5) mmol/L ABG Ionized Calcium (4.5-5.3) mg/dL ABG Glucose (75-99) mg/dL Hemoglobin (13.0-17.5) gm/dL Sodium (137-145) mmol/L Creatinine (0.66-1.25) mg/dL Glucose (74-99) mg/dL POC Glucose (mg/dL) 133 H 134 H (75-99) mg/dL Calcium (8.4-10.2) mg/dL Magnesium (1.6-2.3) mg/dL Total Bilirubin (0.2-1.3) mg/dL Total Protein (6.3-8.2) g/dL Albumin (3.5-5.0) g/dL Arterial Blood Potassium (3.4-4.5) mmol/L Arterial Blood Glucose (75-99) mg/dL Crossmatch 11/04/20 11/04/20 11/04/20 Range/Units 01:00 01:56 03:06 WBC (3.8-10.6) k/uL RBC (4.30-5.90) m/uL Hgb (13.0-17.5) gm/dL Hct (39.0-53.0) % Plt Count (150-450) k/uL Neutrophils # (1.3-7.7) k/uL Lymphocytes # (1.0-4.8) k/uL PT (9.0-12.0) sec INR (<1.2) APTT (22.0-30.0) sec ABG pH (7.35-7.45) ABG pCO2 (35-45) mmHg ABG pO2 (83-108) mmHg ABG HCO3 (21-25) mmol/L ABG Total CO2 (19-24) mmol/L ABG O2 Saturation (94-97) % ABG Hematocrit (34.0-46.0) % ABG Potassium (3.4-4.5) mmol/L ABG Ionized Calcium (4.5-5.3) mg/dL ABG Glucose (75-99) mg/dL Hemoglobin (13.0-17.5) gm/dL Sodium (137-145) mmol/L Creatinine (0.66-1.25) mg/dL Glucose (74-99) mg/dL POC Glucose (mg/dL) 139 H 137 H 133 H (75-99) mg/dL Calcium (8.4-10.2) mg/dL Magnesium (1.6-2.3) mg/dL Total Bilirubin (0.2-1.3) mg/dL Total Protein (6.3-8.2) g/dL Albumin (3.5-5.0) g/dL Arterial Blood Potassium (3.4-4.5) mmol/L Arterial Blood Glucose (75-99) mg/dL Crossmatch 11/04/20 11/04/20 11/04/20 Range/Units 03:55 03:55 03:55 WBC 11.8 H (3.8-10.6) k/uL RBC 3.43 L (4.30-5.90) m/uL Hgb 11.1 L (13.0-17.5) gm/dL Hct 32.4 L (39.0-53.0) % Plt Count 106 L (150-450) k/uL Neutrophils # 9.7 H (1.3-7.7) k/uL Lymphocytes # (1.0-4.8) k/uL PT (9.0-12.0) sec INR (<1.2) APTT (22.0-30.0) sec ABG pH (7.35-7.45) ABG pCO2 (35-45) mmHg ABG pO2 (83-108) mmHg ABG HCO3 (21-25) mmol/L ABG Total CO2 (19-24) mmol/L ABG O2 Saturation (94-97) % ABG Hematocrit (34.0-46.0) % ABG Potassium (3.4-4.5) mmol/L ABG Ionized Calcium (4.5-5.3) mg/dL ABG Glucose (75-99) mg/dL Hemoglobin (13.0-17.5) gm/dL Sodium 135 L (137-145) mmol/L Creatinine (0.66-1.25) mg/dL Glucose 128 H (74-99) mg/dL POC Glucose (mg/dL) 125 H (75-99) mg/dL Calcium 7.9 L (8.4-10.2) mg/dL Magnesium (1.6-2.3) mg/dL Total Bilirubin 2.2 H (0.2-1.3) mg/dL Total Protein 4.7 L (6.3-8.2) g/dL Albumin 2.9 L (3.5-5.0) g/dL Arterial Blood Potassium (3.4-4.5) mmol/L Arterial Blood Glucose (75-99) mg/dL Crossmatch 11/04/20 11/04/20 11/04/20 Range/Units 04:58 06:03 06:55 WBC (3.8-10.6) k/uL RBC (4.30-5.90) m/uL Hgb (13.0-17.5) gm/dL Hct (39.0-53.0) % Plt Count (150-450) k/uL Neutrophils # (1.3-7.7) k/uL Lymphocytes # (1.0-4.8) k/uL PT (9.0-12.0) sec INR (<1.2) APTT (22.0-30.0) sec ABG pH (7.35-7.45) ABG pCO2 (35-45) mmHg ABG pO2 (83-108) mmHg ABG HCO3 (21-25) mmol/L ABG Total CO2 (19-24) mmol/L ABG O2 Saturation (94-97) % ABG Hematocrit (34.0-46.0) % ABG Potassium (3.4-4.5) mmol/L ABG Ionized Calcium (4.5-5.3) mg/dL ABG Glucose (75-99) mg/dL Hemoglobin (13.0-17.5) gm/dL Sodium (137-145) mmol/L Creatinine (0.66-1.25) mg/dL Glucose (74-99) mg/dL POC Glucose (mg/dL) 126 H 124 H 125 H (75-99) mg/dL Calcium (8.4-10.2) mg/dL Magnesium (1.6-2.3) mg/dL Total Bilirubin (0.2-1.3) mg/dL Total Protein (6.3-8.2) g/dL Albumin (3.5-5.0) g/dL Arterial Blood Potassium (3.4-4.5) mmol/L Arterial Blood Glucose (75-99) mg/dL Crossmatch 11/04/20 Range/Units 07:52 WBC (3.8-10.6) k/uL RBC (4.30-5.90) m/uL Hgb (13.0-17.5) gm/dL Hct (39.0-53.0) % Plt Count (150-450) k/uL Neutrophils # (1.3-7.7) k/uL Lymphocytes # (1.0-4.8) k/uL PT (9.0-12.0) sec INR (<1.2) APTT (22.0-30.0) sec ABG pH (7.35-7.45) ABG pCO2 (35-45) mmHg ABG pO2 (83-108) mmHg ABG HCO3 (21-25) mmol/L ABG Total CO2 (19-24) mmol/L ABG O2 Saturation (94-97) % ABG Hematocrit (34.0-46.0) % ABG Potassium (3.4-4.5) mmol/L ABG Ionized Calcium (4.5-5.3) mg/dL ABG Glucose (75-99) mg/dL Hemoglobin (13.0-17.5) gm/dL Sodium (137-145) mmol/L Creatinine (0.66-1.25) mg/dL Glucose (74-99) mg/dL POC Glucose (mg/dL) 121 H (75-99) mg/dL Calcium (8.4-10.2) mg/dL Magnesium (1.6-2.3) mg/dL Total Bilirubin (0.2-1.3) mg/dL Total Protein (6.3-8.2) g/dL Albumin (3.5-5.0) g/dL Arterial Blood Potassium (3.4-4.5) mmol/L Arterial Blood Glucose (75-99) mg/dL Crossmatch Microbiology - Last 24 Hours (Table) 11/02/20 16:41 Nasal Screen MRSA/MSSA - Final Nasal Swab - Imaging and Cardiology Chest x-ray: report reviewed, image reviewed Assessment and Plan Assessment: 1. Symptomatic multivessel coronary artery disease, non-STEMI this admission, status post three-vessel CABG 2. History of CAD with prior stenting 15 years ago 3. Hypertension, currently hypotensive on IV pressors 4. Hyperlipidemia, cholesterol 216, LDL 136 5. Paroxysmal atrial fibrillation with refusal of anticoagulation, status post left atrial appendage ligation 6. Hypothyroidism 7. Obstructive sleep apnea with home CPAP use 8. Prostate cancer with radiation seed treatment and subsequent bladder and bowel incontinence 9. Diverticulosis 10. Left leg cellulitis in April 2021 11. 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 Previous tobacco dependence 13. Daily wine consumption 14. Nightly cannabis use 14. Postoperative acute blood loss anemia and thrombocytopenia, expected Plan: 1. Continue aspirin, statin, Plavix. Beta bc therapy on hold due to first degree AV block and IV pressor use. Will initiate when able. Patient has refused statin in the past due to significant myalgias and weakness. 2. Wean Primacor, wean levo as tolerated 3. Wean O2 as tolerated. Encourage incentive spirometry 10 times every hour while awake. Bronchodilators per pulmonology 4. Increase activity, ambulate as tolerated. PT/OT/cardiac rehab consulted 5. Will monitor daily labs and x-rays. Electrolyte replacement per protocol. 6. GI/DVT prophylaxis 7. Pain controlled current medication regimen 8. Insulin management per primary care service. Patient is not diabetic, preoperative hemoglobin A1c 5.2% 9. Mediastinal/left lateral chest tubes to remain for another 24 hours 10. Will discontinue Silsbee once able to be weaned off Primacor and Levophed 11. Granados catheter for another 24 hours for strict accurate intake and output. Daily weights. 12. More recommendations to follow based on patient's progress Time with Patient: Greater than 30
[2020-11-04 09:13] LABS: Glucose,Whole Blood 129 mg/dL (75-99)
--- NOTE | 2020-11-04 09:41 | P.PN ---
Subjective Progress Note Date: 11/04/20 Principal diagnosis: Coronary artery disease status post coronary artery bypass grafting 80-year-old white male patient of Dr. 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 Patient states that every time he is walking his chest pain gets worse, and there is associated increased shortness of breath as well. Denied radiation to his arm, or his neck, no diaphoresis, no palpitations, no recent fever or chills, no cough, no swelling in his bilateral lower extremity's, no nausea vomiting or diarrhea. Patient was also seen by his edge sander in the office, and EKG showed atrial fibrillation with no acute changes. X-ray was completed showing borderline cardiomegaly, no heart failure, no significant change compared to old exam. CBC was within normal limits, coagulation profile was within normal limits electrolytes and renal profile were unremarkable, COVID-19 PCR was negative, his first troponin was less than 0.012, second and the third were 0.033 and 0.098. Patient underwent heart catheterization today and was found to have severe triple-vessel disease with a 95% disease involving the LV branch of a dominant RCA, there was a proximal LAD disease, and there was a disease involving the ramus of about 70%, was also made circumflex ostium lesion that was quite significant. Filling pressures were normal. Echocardiogram was completed and mild concentric LVH, mildly impaired left ventricular systolic function with EF of 45-50%, mild MR, mild TR, and right-sided pressures of 47.8 mmHg. Was referred to cardiothoracic surgery for possibility of coronary artery bypass grafting, and we're consulted for pulmonary evaluation, and ICU management On 11/03/2020 patient is seen in the postoperative period in the intensive care unit following three-vessel coronary artery bypass grafting with the AZAR to the LAD, SVG to the OM, and SVG to the PLV, right leg endoscopic vein harvest, and exclusion of the left atrial appendage. Patient is sedated and intubated on assist control mode of ventilation, with a rate of 12, tidal volume is 400, FiO2 of 60% and PEEP of 5. He is on lactated Ringer's at a rate of 50 ML per hour, he is on Diprivan at 20 mics per kilo per minute, Primacor is at 0.375, nitroglycerin drip is at 5 mics per kilo per minute, Levophed is at 7 mics per minute. PA pressure is 30/18, cardiac output was 4.8 and cardiac index was 2.3 patient is currently being paced at DDD mode with a rate of 70, intrinsic rhythm is sinus rhythm with 1st degree AV block, required pacemaker support earlier for slow atrial fibrillation with a rate of 40 BPM. he has a 2 mediastinal left pleural chest tubes with small amount of serous output in the chest tubes, no evidence of air leak, postoperative blood gas and chest x-ray are pending at this time. The patient is seen today 11/04/2020 in follow-up in the intensive care unit. He was successfully extubated around midnight. He is currently sitting up in a chair at the bedside. He is down to 2 L/m per nasal cannula and maintaining O2 saturations in the 90s. Chest x-ray reveals evidence of mediastinal chest tubes 2. Output 390 ML's of serosanguineous fluid. 1 left-sided chest tube in place with 360 ML's of serosanguineous fluid. Patchy air space opacities in the perihilar and bibasilar regions suggestive of atelectasis. No pneumothorax. Nitroglycerin drip is off. He remains on milrinone at 0.2 mcg/kg/m. Norepinephrine at 0.1 mcg/kg/m. He is on insulin drip at 1 unit per hour. Cardiac output 6.8. Cardiac index 3.2. PA pressure 30/12. Blood pressure 108/55. He is currently in his own intrinsic rhythm with sinus rhythm with a first-degree AV block, rate in the 90s. White count 11.8. Hemoglobin 11.1. Platelets 106,000. Sodium 135. Potassium 4.1. Creatinine 0.8. Glucose 128. Albumin 2.9. AST 47. ALT 15. Received albumin this morning. Suraj on bronchodilators. Owing about 2661-7647 ML's on the incentive spirometer. He remains on heparin for DVT prophylaxis. SCDs in place. Protonix for GI prophylaxis. Objective - Vital Signs Vital signs: Vital Signs Temp 97.5 F L 11/03/20 17:00 Pulse 90 11/04/20 07:38 Resp 13 11/04/20 07:00 BP 104/54 11/04/20 07:00 Pulse Ox 96 11/04/20 07:00 Intake & Output 11/03/20 11/04/20 11/04/20 18:59 06:59 18:59 Intake Total 294.723 5437.585 355.75 Output Total 2200 888 80 Balance -5128.979 7135.585 275.75 Weight 102.8 kg Intake: IV 320 2038.25 101.75 .9NS Cardiac Output 40 340 30 .9NS Pressure bag 27 108 9 ACETAMINOPHEN IV (For NPO 100 ) 1,000 mg In Empty Bag 1 bag @ 400 mls/hr IVPB Q6HR KEVIN Rx#:[id number] Albumin Human 5% 250 ml 750 In Empty Bag 1 bag @ 250 mls/hr IVPB Q1HR PRN Rx#: [id number] Lactated Ringers 1,000 ml 150 550 50 @ 50 mls/hr IV .Q20H KEVIN Rx#:[id number] Nitroglycerine 16.5 1.5 Primacor 123.75 11.25 ceFAZolin 2 gm In Sodium 50 Chloride 0.9% 50 ml @ 100 mls/hr IVPB Q8H KEVIN Rx#: [id number] Intake, IV Titration 185.175 421.335 254 Amount ACETAMINOPHEN IV (For NPO 100 ) 1,000 mg In Empty Bag 1 bag @ 400 mls/hr IVPB Q6HR KEVIN Rx#:[id number] Clevidipine Butyrate 25 6.934 43.066 mg In Empty Bag 1 bag @ 1 MG/HR 2 mls/hr IV .Q24H KEVIN Rx#:[id number] Insulin Regular 100 unit 1.187 In Sodium Chloride 0.9% 100 ml @ Per Protocol IV .Q0M KEVIN Rx#:[id number] Milrinone-D5w Pmx 20 mg 84.756 In Dextrose/Water 1 100ml .bag @ 0.375 MCG/KG/MIN 11.226 mls/hr IV .Q8H55M [facility]EV[facility] Rx#:[id number] Norepinephrine 4 mg In 218.362 254 Sodium Chloride 0.9% 250 ml @ 0.05 MCG/KG/MIN 19. 01 mls/hr IV .[id number] KEVIN Rx#:[id number] ceFAZolin 2 gm In Sodium 50 Chloride 0.9% 50 ml @ 100 mls/hr IVPB Q8H [facility]EV[facility] Rx#: [id number] propofoL 1,000 mg In 28.241 73.964 Empty Bag 1 bag @ Titrate IV .Q0M KEVIN Rx#: [id number] Output: Chest Tube Drainage 220 505 60 Left Chest Tube 100 245 10 Mediastinal Pawel Tube X 2 120 260 50 Urine 780 383 20 Estimated Blood Loss 1200 Other: Voiding Method Toilet Indwelling Catheter ABP, PAP, CO, CI - Last Documented Arterial Blood Pressure 108/55 Pulmonary Artery Pressure 24/11 Cardiac Output 5.2 Cardiac Index 2.4 - Exam GENERAL EXAM: Alert, very pleasant 80-year-old gentleman up in a chair at the bedside. On 2 L nasal cannula, comfortable in no apparent distress. HEAD: Normocephalic. EYES: Normal reaction of pupils, equal size. NOSE: Clear with pink turbinates. THROAT: No erythema or exudates. NECK: Right IJ Oxford-Edna catheter in place No masses, no JVD. CHEST: Surgical dressing dry and intact. Heart Hugger in place. Mediastinal and chest tubes in place to wall suction. No air leaks. AV pacer wires present, grounded. LUNGS: Equal air entry with faint crackles in the bilateral posterior bases. CVS: S1 and S2 normal with no audible murmur, regular rhythm. ABDOMEN: No hepatosplenomegaly, normal bowel sounds, no guarding or rigidity. SPINE: No scoliosis or deformity SKIN: No rashes CENTRAL NERVOUS SYSTEM: No focal deficits, tone is normal in all 4 extremities. EXTREMITIES: Right radial arterial line in place There is trace peripheral monserrat ma. No clubbing, no cyanosis. Peripheral pulses are intact. - Labs CBC & Chem 7: 11/04/20 03:55 11/04/20 03:55 Labs: Abnormal Lab Results - Last 24 Hours (Table) 11/02/20 11/03/20 11/03/20 Range/Units 13:35 09:37 11:15 WBC (3.8-10.6) k/uL RBC (4.30-5.90) m/uL Hgb (13.0-17.5) gm/dL Hct (39.0-53.0) % Plt Count (150-450) k/uL Neutrophils # (1.3-7.7) k/uL Lymphocytes # (1.0-4.8) k/uL PT (9.0-12.0) sec INR (<1.2) APTT (22.0-30.0) sec ABG pH 7.34 L (7.35-7.45) ABG pCO2 (35-45) mmHg ABG pO2 384 H 171 H (83-108) mmHg ABG HCO3 (21-25) mmol/L ABG Total CO2 26 H 26 H (19-24) mmol/L ABG O2 Saturation 100.0 H 99.5 H (94-97) % ABG Hematocrit (34.0-46.0) % ABG Potassium (3.4-4.5) mmol/L ABG Ionized Calcium (4.5-5.3) mg/dL ABG Glucose 107 H (75-99) mg/dL Hemoglobin (13.0-17.5) gm/dL Sodium (137-145) mmol/L Creatinine (0.66-1.25) mg/dL Glucose (74-99) mg/dL POC Glucose (mg/dL) (75-99) mg/dL Calcium (8.4-10.2) mg/dL Magnesium (1.6-2.3) mg/dL Total Bilirubin (0.2-1.3) mg/dL Total Protein (6.3-8.2) g/dL Albumin (3.5-5.0) g/dL Arterial Blood Potassium (3.4-4.5) mmol/L Arterial Blood Glucose 107 H (75-99) mg/dL Crossmatch See Detail 11/03/20 11/03/20 11/03/20 Range/Units 12:16 12:49 13:21 WBC (3.8-10.6) k/uL RBC (4.30-5.90) m/uL Hgb (13.0-17.5) gm/dL Hct (39.0-53.0) % Plt Count (150-450) k/uL Neutrophils # (1.3-7.7) k/uL Lymphocytes # (1.0-4.8) k/uL PT (9.0-12.0) sec INR (<1.2) APTT (22.0-30.0) sec ABG pH (7.35-7.45) ABG pCO2 (35-45) mmHg ABG pO2 378 H 407 H 322 H (83-108) mmHg ABG HCO3 (21-25) mmol/L ABG Total CO2 25 H 25 H 26 H (19-24) mmol/L ABG O2 Saturation 100.0 H 100.0 H 100.0 H (94-97) % ABG Hematocrit 33 L 32 L (34.0-46.0) % ABG Potassium 5.0 H 4.8 H (3.4-4.5) mmol/L ABG Ionized Calcium 4.1 L 4.1 L 4.1 L (4.5-5.3) mg/dL ABG Glucose 119 H 119 H (75-99) mg/dL Hemoglobin 10.7 L 10.9 L 10.6 L (13.0-17.5) gm/dL Sodium (137-145) mmol/L Creatinine (0.66-1.25) mg/dL Glucose (74-99) mg/dL POC Glucose (mg/dL) (75-99) mg/dL Calcium (8.4-10.2) mg/dL Magnesium (1.6-2.3) mg/dL Total Bilirubin (0.2-1.3) mg/dL Total Protein (6.3-8.2) g/dL Albumin (3.5-5.0) g/dL Arterial Blood Potassium 5.0 H 4.8 H (3.4-4.5) mmol/L Arterial Blood Glucose 119 H 119 H (75-99) mg/dL Crossmatch 11/03/20 11/03/20 11/03/20 Range/Units 15:02 15:41 15:54 WBC 13.7 H (3.8-10.6) k/uL RBC 4.07 L (4.30-5.90) m/uL Hgb (13.0-17.5) gm/dL Hct 38.7 L (39.0-53.0) % Plt Count 103 L (150-450) k/uL Neutrophils # 11.8 H (1.3-7.7) k/uL Lymphocytes # 0.9 L (1.0-4.8) k/uL PT (9.0-12.0) sec INR (<1.2) APTT (22.0-30.0) sec ABG pH (7.35-7.45) ABG pCO2 (35-45) mmHg ABG pO2 78 L (83-108) mmHg ABG HCO3 (21-25) mmol/L ABG Total CO2 26 H (19-24) mmol/L ABG O2 Saturation (94-97) % ABG Hematocrit (34.0-46.0) % ABG Potassium (3.4-4.5) mmol/L ABG Ionized Calcium (4.5-5.3) mg/dL ABG Glucose 118 H (75-99) mg/dL Hemoglobin 12.2 L (13.0-17.5) gm/dL Sodium (137-145) mmol/L Creatinine (0.66-1.25) mg/dL Glucose (74-99) mg/dL POC Glucose (mg/dL) 111 H (75-99) mg/dL Calcium (8.4-10.2) mg/dL Magnesium (1.6-2.3) mg/dL Total Bilirubin (0.2-1.3) mg/dL Total Protein (6.3-8.2) g/dL Albumin (3.5-5.0) g/dL Arterial Blood Potassium (3.4-4.5) mmol/L Arterial Blood Glucose 118 H (75-99) mg/dL Crossmatch 11/03/20 11/03/20 11/03/20 Range/Units 15:54 15:54 16:10 WBC (3.8-10.6) k/uL RBC (4.30-5.90) m/uL Hgb (13.0-17.5) gm/dL Hct (39.0-53.0) % Plt Count (150-450) k/uL Neutrophils # (1.3-7.7) k/uL Lymphocytes # (1.0-4.8) k/uL PT 12.6 H (9.0-12.0) sec INR 1.2 H (<1.2) APTT 33.7 H (22.0-30.0) sec ABG pH 7.33 L (7.35-7.45) ABG pCO2 48 H (35-45) mmHg ABG pO2 342 H (83-108) mmHg ABG HCO3 26 H (21-25) mmol/L ABG Total CO2 27 H (19-24) mmol/L ABG O2 Saturation 99.7 H (94-97) % ABG Hematocrit (34.0-46.0) % ABG Potassium (3.4-4.5) mmol/L ABG Ionized Calcium (4.5-5.3) mg/dL ABG Glucose (75-99) mg/dL Hemoglobin (13.0-17.5) gm/dL Sodium 135 L (137-145) mmol/L Creatinine 0.59 L (0.66-1.25) mg/dL Glucose 120 H (74-99) mg/dL POC Glucose (mg/dL) (75-99) mg/dL Calcium 7.9 L (8.4-10.2) mg/dL Magnesium 2.4 H (1.6-2.3) mg/dL Total Bilirubin 1.7 H (0.2-1.3) mg/dL Total Protein 4.6 L (6.3-8.2) g/dL Albumin 2.6 L (3.5-5.0) g/dL Arterial Blood Potassium (3.4-4.5) mmol/L Arterial Blood Glucose (75-99) mg/dL Crossmatch 11/03/20 11/03/20 11/03/20 Range/Units 16:29 17:09 18:02 WBC 14.5 H (3.8-10.6) k/uL RBC (4.30-5.90) m/uL Hgb (13.0-17.5) gm/dL Hct (39.0-53.0) % Plt Count 130 L (150-450) k/uL Neutrophils # 11.9 H (1.3-7.7) k/uL Lymphocytes # (1.0-4.8) k/uL PT (9.0-12.0) sec INR (<1.2) APTT (22.0-30.0) sec ABG pH (7.35-7.45) ABG pCO2 (35-45) mmHg ABG pO2 (83-108) mmHg ABG HCO3 (21-25) mmol/L ABG Total CO2 (19-24) mmol/L ABG O2 Saturation (94-97) % ABG Hematocrit (34.0-46.0) % ABG Potassium (3.4-4.5) mmol/L ABG Ionized Calcium (4.5-5.3) mg/dL ABG Glucose (75-99) mg/dL Hemoglobin (13.0-17.5) gm/dL Sodium (137-145) mmol/L Creatinine (0.66-1.25) mg/dL Glucose (74-99) mg/dL POC Glucose (mg/dL) 105 H 108 H (75-99) mg/dL Calcium (8.4-10.2) mg/dL Magnesium (1.6-2.3) mg/dL Total Bilirubin (0.2-1.3) mg/dL Total Protein (6.3-8.2) g/dL Albumin (3.5-5.0) g/dL Arterial Blood Potassium (3.4-4.5) mmol/L Arterial Blood Glucose (75-99) mg/dL Crossmatch 11/03/20 11/03/20 11/03/20 Range/Units 18:03 19:02 19:59 WBC (3.8-10.6) k/uL RBC (4.30-5.90) m/uL Hgb (13.0-17.5) gm/dL Hct (39.0-53.0) % Plt Count (150-450) k/uL Neutrophils # (1.3-7.7) k/uL Lymphocytes # (1.0-4.8) k/uL PT (9.0-12.0) sec INR (<1.2) APTT (22.0-30.0) sec ABG pH (7.35-7.45) ABG pCO2 (35-45) mmHg ABG pO2 (83-108) mmHg ABG HCO3 (21-25) mmol/L ABG Total CO2 (19-24) mmol/L ABG O2 Saturation (94-97) % ABG Hematocrit (34.0-46.0) % ABG Potassium (3.4-4.5) mmol/L ABG Ionized Calcium (4.5-5.3) mg/dL ABG Glucose (75-99) mg/dL Hemoglobin (13.0-17.5) gm/dL Sodium (137-145) mmol/L Creatinine (0.66-1.25) mg/dL Glucose (74-99) mg/dL POC Glucose (mg/dL) 140 H 133 H 133 H (75-99) mg/dL Calcium (8.4-10.2) mg/dL Magnesium (1.6-2.3) mg/dL Total Bilirubin (0.2-1.3) mg/dL Total Protein (6.3-8.2) g/dL Albumin (3.5-5.0) g/dL Arterial Blood Potassium (3.4-4.5) mmol/L Arterial Blood Glucose (75-99) mg/dL Crossmatch 11/03/20 11/03/20 11/03/20 Range/Units 20:50 20:55 21:59 WBC 12.9 H (3.8-10.6) k/uL RBC 3.87 L (4.30-5.90) m/uL Hgb 12.5 L (13.0-17.5) gm/dL Hct 36.6 L (39.0-53.0) % Plt Count 110 L (150-450) k/uL Neutrophils # 11.3 H (1.3-7.7) k/uL Lymphocytes # 0.7 L (1.0-4.8) k/uL PT (9.0-12.0) sec INR (<1.2) APTT (22.0-30.0) sec ABG pH (7.35-7.45) ABG pCO2 (35-45) mmHg ABG pO2 (83-108) mmHg ABG HCO3 (21-25) mmol/L ABG Total CO2 (19-24) mmol/L ABG O2 Saturation (94-97) % ABG Hematocrit (34.0-46.0) % ABG Potassium (3.4-4.5) mmol/L ABG Ionized Calcium (4.5-5.3) mg/dL ABG Glucose (75-99) mg/dL Hemoglobin (13.0-17.5) gm/dL Sodium (137-145) mmol/L Creatinine (0.66-1.25) mg/dL Glucose (74-99) mg/dL POC Glucose (mg/dL) 131 H 138 H (75-99) mg/dL Calcium (8.4-10.2) mg/dL Magnesium (1.6-2.3) mg/dL Total Bilirubin (0.2-1.3) mg/dL Total Protein (6.3-8.2) g/dL Albumin (3.5-5.0) g/dL Arterial Blood Potassium (3.4-4.5) mmol/L Arterial Blood Glucose (75-99) mg/dL Crossmatch 11/03/20 11/03/20 11/04/20 Range/Units 22:57 23:35 00:09 WBC (3.8-10.6) k/uL RBC (4.30-5.90) m/uL Hgb (13.0-17.5) gm/dL Hct (39.0-53.0) % Plt Count (150-450) k/uL Neutrophils # (1.3-7.7) k/uL Lymphocytes # (1.0-4.8) k/uL PT (9.0-12.0) sec INR (<1.2) APTT (22.0-30.0) sec ABG pH (7.35-7.45) ABG pCO2 (35-45) mmHg ABG pO2 131 H (83-108) mmHg ABG HCO3 (21-25) mmol/L ABG Total CO2 25 H (19-24) mmol/L ABG O2 Saturation 98.7 H (94-97) % ABG Hematocrit (34.0-46.0) % ABG Potassium (3.4-4.5) mmol/L ABG Ionized Calcium (4.5-5.3) mg/dL ABG Glucose (75-99) mg/dL Hemoglobin (13.0-17.5) gm/dL Sodium (137-145) mmol/L Creatinine (0.66-1.25) mg/dL Glucose (74-99) mg/dL POC Glucose (mg/dL) 133 H 134 H (75-99) mg/dL Calcium (8.4-10.2) mg/dL Magnesium (1.6-2.3) mg/dL Total Bilirubin (0.2-1.3) mg/dL Total Protein (6.3-8.2) g/dL Albumin (3.5-5.0) g/dL Arterial Blood Potassium (3.4-4.5) mmol/L Arterial Blood Glucose (75-99) mg/dL Crossmatch 11/04/20 11/04/20 11/04/20 Range/Units 01:00 01:56 03:06 WBC (3.8-10.6) k/uL RBC (4.30-5.90) m/uL Hgb (13.0-17.5) gm/dL Hct (39.0-53.0) % Plt Count (150-450) k/uL Neutrophils # (1.3-7.7) k/uL Lymphocytes # (1.0-4.8) k/uL PT (9.0-12.0) sec INR (<1.2) APTT (22.0-30.0) sec ABG pH (7.35-7.45) ABG pCO2 (35-45) mmHg ABG pO2 (83-108) mmHg ABG HCO3 (21-25) mmol/L ABG Total CO2 (19-24) mmol/L ABG O2 Saturation (94-97) % ABG Hematocrit (34.0-46.0) % ABG Potassium (3.4-4.5) mmol/L ABG Ionized Calcium (4.5-5.3) mg/dL ABG Glucose (75-99) mg/dL Hemoglobin (13.0-17.5) gm/dL Sodium (137-145) mmol/L Creatinine (0.66-1.25) mg/dL Glucose (74-99) mg/dL POC Glucose (mg/dL) 139 H 137 H 133 H (75-99) mg/dL Calcium (8.4-10.2) mg/dL Magnesium (1.6-2.3) mg/dL Total Bilirubin (0.2-1.3) mg/dL Total Protein (6.3-8.2) g/dL Albumin (3.5-5.0) g/dL Arterial Blood Potassium (3.4-4.5) mmol/L Arterial Blood Glucose (75-99) mg/dL Crossmatch 11/04/20 11/04/20 11/04/20 Range/Units 03:55 03:55 03:55 WBC 11.8 H (3.8-10.6) k/uL RBC 3.43 L (4.30-5.90) m/uL Hgb 11.1 L (13.0-17.5) gm/dL Hct 32.4 L (39.0-53.0) % Plt Count 106 L (150-450) k/uL Neutrophils # 9.7 H (1.3-7.7) k/uL Lymphocytes # (1.0-4.8) k/uL PT (9.0-12.0) sec INR (<1.2) APTT (22.0-30.0) sec ABG pH (7.35-7.45) ABG pCO2 (35-45) mmHg ABG pO2 (83-108) mmHg ABG HCO3 (21-25) mmol/L ABG Total CO2 (19-24) mmol/L ABG O2 Saturation (94-97) % ABG Hematocrit (34.0-46.0) % ABG Potassium (3.4-4.5) mmol/L ABG Ionized Calcium (4.5-5.3) mg/dL ABG Glucose (75-99) mg/dL Hemoglobin (13.0-17.5) gm/dL Sodium 135 L (137-145) mmol/L Creatinine (0.66-1.25) mg/dL Glucose 128 H (74-99) mg/dL POC Glucose (mg/dL) 125 H (75-99) mg/dL Calcium 7.9 L (8.4-10.2) mg/dL Magnesium (1.6-2.3) mg/dL Total Bilirubin 2.2 H (0.2-1.3) mg/dL Total Protein 4.7 L (6.3-8.2) g/dL Albumin 2.9 L (3.5-5.0) g/dL Arterial Blood Potassium (3.4-4.5) mmol/L Arterial Blood Glucose (75-99) mg/dL Crossmatch 11/04/20 11/04/20 11/04/20 Range/Units 04:58 06:03 06:55 WBC (3.8-10.6) k/uL RBC (4.30-5.90) m/uL Hgb (13.0-17.5) gm/dL Hct (39.0-53.0) % Plt Count (150-450) k/uL Neutrophils # (1.3-7.7) k/uL Lymphocytes # (1.0-4.8) k/uL PT (9.0-12.0) sec INR (<1.2) APTT (22.0-30.0) sec ABG pH (7.35-7.45) ABG pCO2 (35-45) mmHg ABG pO2 (83-108) mmHg ABG HCO3 (21-25) mmol/L ABG Total CO2 (19-24) mmol/L ABG O2 Saturation (94-97) % ABG Hematocrit (34.0-46.0) % ABG Potassium (3.4-4.5) mmol/L ABG Ionized Calcium (4.5-5.3) mg/dL ABG Glucose (75-99) mg/dL Hemoglobin (13.0-17.5) gm/dL Sodium (137-145) mmol/L Creatinine (0.66-1.25) mg/dL Glucose (74-99) mg/dL POC Glucose (mg/dL) 126 H 124 H 125 H (75-99) mg/dL Calcium (8.4-10.2) mg/dL Magnesium (1.6-2.3) mg/dL Total Bilirubin (0.2-1.3) mg/dL Total Protein (6.3-8.2) g/dL Albumin (3.5-5.0) g/dL Arterial Blood Potassium (3.4-4.5) mmol/L Arterial Blood Glucose (75-99) mg/dL Crossmatch 11/04/20 11/04/20 Range/Units 07:52 09:11 WBC (3.8-10.6) k/uL RBC (4.30-5.90) m/uL Hgb (13.0-17.5) gm/dL Hct (39.0-53.0) % Plt Count (150-450) k/uL Neutrophils # (1.3-7.7) k/uL Lymphocytes # (1.0-4.8) k/uL PT (9.0-12.0) sec INR (<1.2) APTT (22.0-30.0) sec ABG pH (7.35-7.45) ABG pCO2 (35-45) mmHg ABG pO2 (83-108) mmHg ABG HCO3 (21-25) mmol/L ABG Total CO2 (19-24) mmol/L ABG O2 Saturation (94-97) % ABG Hematocrit (34.0-46.0) % ABG Potassium (3.4-4.5) mmol/L ABG Ionized Calcium (4.5-5.3) mg/dL ABG Glucose (75-99) mg/dL Hemoglobin (13.0-17.5) gm/dL Sodium (137-145) mmol/L Creatinine (0.66-1.25) mg/dL Glucose (74-99) mg/dL POC Glucose (mg/dL) 121 H 129 H (75-99) mg/dL Calcium (8.4-10.2) mg/dL Magnesium (1.6-2.3) mg/dL Total Bilirubin (0.2-1.3) mg/dL Total Protein (6.3-8.2) g/dL Albumin (3.5-5.0) g/dL Arterial Blood Potassium (3.4-4.5) mmol/L Arterial Blood Glucose (75-99) mg/dL Crossmatch Microbiology - Last 24 Hours (Table) 11/02/20 16:41 Nasal Screen MRSA/MSSA - Final Nasal Swab Assessment and Plan Assessment: 1 Symptomatic multivessel coronary artery disease, status post three-vessel coronary artery bypass grafting with AZAR to the LAD, and SVG to the OM and PLV, left atrial appendage exclusion, postoperative day #1 2 Routine postoperative ventilator management, extubated at 00:06 this morning 11/04/2020, currently on 2 L nasal cannula 3 Coronary artery disease with previous PCI 4 Hypertension 5 Chronic A. fib, and the patient refuses chronic anticoagulation, is currently just on aspirin 6 Remote and brief history of smoking 7 Congenital malformation of the sternal bone, and patient has a chronic indentation of the sternum, pectus excavatum 8 Obstructive sleep apnea 9 Hypothyroidism 10 Hyperactive bladder 11 History of prostate cancer with seed implants in 2002 12 Osteoarthritis 13 Previous history of myocardial infarction 14 Daily use of cannabis Plan: The patient was seen and evaluated by Dr. Artinian Chest x-ray and labs reviewed Received albumin this morning Plan is to wean off milrinone first Then wean norepinephrine as tolerated Adjust insulin drip per protocol Continue lactated Ringer's at 50 MLS per hour Encourage increased use the incentive spirometer Continue bronchodilators Heparin for DVT prophylaxis Increase his activity as tolerated Titrate down the FiO2 as tolerated We will continue to follow and make further recommendations based on his clinical status I, the cosigning physician, performed a history & physical examination of the patient. Lungs sounds crackles in the posterior bases. Maintaining good O2 saturations in the 90s on 2 L/m per nasal cannula. I discussed the assessment and plan of care with my nurse practitioner, Samantha De La Garza. I attest to the above note as dictated by her.
[2020-11-04 10:02] LABS: Glucose,Whole Blood 119 mg/dL (75-99)
[2020-11-04 10:29] VITALS: BMI 34.4
[2020-11-04] MEDS: LACTATED RINGERS 1,000 ML IV SCH (10:29)
--- NOTE | 2020-11-04 11:12 | P.PN ---
Subjective Progress Note Date: 11/04/20 No new complaints today. Pt off of milrinone and levophed. Receiving fluid and albumin. UOP is decent. 1 degree AVB on tele, holding beta-bc. Pt has no chest pain. Objective - Vital Signs Vital signs: Vital Signs Temp 98.6 F 11/04/20 08:00 Pulse 98 11/04/20 11:00 Resp 20 11/04/20 11:00 BP 125/104 11/04/20 11:00 Pulse Ox 93 L 11/04/20 11:00 Intake & Output 11/03/20 11/04/20 11/04/20 18:59 06:59 18:59 Intake Total 040.547 2325.585 1304.044 Output Total 2200 888 280 Balance -0957.597 8642.585 1024.044 Weight 102.8 kg 102.8 kg Intake: IV 320 2038.25 982.00 .9NS Cardiac Output 40 340 60 .9NS Pressure bag 27 108 45 ACETAMINOPHEN IV (For NPO 100 ) 1,000 mg In Empty Bag 1 bag @ 400 mls/hr IVPB Q6HR KEVIN Rx#:[id number] Albumin Human 5% 250 ml 750 500 In Empty Bag 1 bag @ 250 mls/hr IVPB Q1HR PRN Rx#: [id number] Lactated Ringers 1,000 ml 150 550 250 @ 50 mls/hr IV .Q20H KEVIN Rx#:[id number] Nitroglycerine 16.5 1.5 Primacor 123.75 25.50 ceFAZolin 2 gm In Sodium 50 100 Chloride 0.9% 50 ml @ 100 mls/hr IVPB Q8H KEVIN Rx#: [id number] Intake, IV Titration 185.175 421.335 322.044 Amount ACETAMINOPHEN IV (For NPO 100 ) 1,000 mg In Empty Bag 1 bag @ 400 mls/hr IVPB Q6HR KEVIN Rx#:[id number] Clevidipine Butyrate 25 6.934 43.066 mg In Empty Bag 1 bag @ 1 MG/HR 2 mls/hr IV .Q24H KEVIN Rx#:[id number] Insulin Regular 100 unit 1.187 15.133 In Sodium Chloride 0.9% 100 ml @ Per Protocol IV .Q0M KEVIN Rx#:[id number] Milrinone-D5w Pmx 20 mg 84.756 In Dextrose/Water 1 100ml .bag @ 0.375 MCG/KG/MIN 11.226 mls/hr IV .Q8H55M [facility]EV[facility] Rx#:[id number] Norepinephrine 4 mg In 218.362 306.911 Sodium Chloride 0.9% 250 ml @ 0.05 MCG/KG/MIN 19. 01 mls/hr IV .[id number] KEVIN Rx#:[id number] ceFAZolin 2 gm In Sodium 50 Chloride 0.9% 50 ml @ 100 mls/hr IVPB Q8H KEVIN Rx#: [id number] propofoL 1,000 mg In 28.241 73.964 Empty Bag 1 bag @ Titrate IV .Q0M KEVIN Rx#: [id number] Output: Chest Tube Drainage 220 505 175 Left Chest Tube 100 245 125 Mediastinal Pawel Tube X 2 120 260 50 Urine 780 383 105 Estimated Blood Loss 1200 Other: Voiding Method Toilet Indwelling Catheter ABP, PAP, CO, CI - Last Documented Arterial Blood Pressure 93/45 Pulmonary Artery Pressure 34/11 Cardiac Output 6.8 Cardiac Index 3.2 - Exam Gen: awake, alert HEENT: normocephalic, atraumatic, good hearing acuity, moist mucous membranes Resp: breathing comfortably without accessory muscle use, adequate chest expansion CVS: good distal perfusion x 4, regular rate and rhythm GI: soft, NTTP, ND : no SPT, no CVAT, calderon catheter is present MSK: Trace to 1+ pitting edema, no clubbing Neuro: non-focal, moving all extremities - Labs CBC & Chem 7: 11/04/20 03:55 11/04/20 03:55 Labs: Abnormal Lab Results - Last 24 Hours (Table) 11/02/20 11/03/20 11/03/20 Range/Units 13:35 09:37 11:15 WBC (3.8-10.6) k/uL RBC (4.30-5.90) m/uL Hgb (13.0-17.5) gm/dL Hct (39.0-53.0) % Plt Count (150-450) k/uL Neutrophils # (1.3-7.7) k/uL Lymphocytes # (1.0-4.8) k/uL PT (9.0-12.0) sec INR (<1.2) APTT (22.0-30.0) sec ABG pH 7.34 L (7.35-7.45) ABG pCO2 (35-45) mmHg ABG pO2 384 H 171 H (83-108) mmHg ABG HCO3 (21-25) mmol/L ABG Total CO2 26 H 26 H (19-24) mmol/L ABG O2 Saturation 100.0 H 99.5 H (94-97) % ABG Hematocrit (34.0-46.0) % ABG Potassium (3.4-4.5) mmol/L ABG Ionized Calcium (4.5-5.3) mg/dL ABG Glucose 107 H (75-99) mg/dL Hemoglobin (13.0-17.5) gm/dL Sodium (137-145) mmol/L Creatinine (0.66-1.25) mg/dL Glucose (74-99) mg/dL POC Glucose (mg/dL) (75-99) mg/dL Calcium (8.4-10.2) mg/dL Magnesium (1.6-2.3) mg/dL Total Bilirubin (0.2-1.3) mg/dL Total Protein (6.3-8.2) g/dL Albumin (3.5-5.0) g/dL Arterial Blood Potassium (3.4-4.5) mmol/L Arterial Blood Glucose 107 H (75-99) mg/dL Crossmatch See Detail 11/03/20 11/03/20 11/03/20 Range/Units 12:16 12:49 13:21 WBC (3.8-10.6) k/uL RBC (4.30-5.90) m/uL Hgb (13.0-17.5) gm/dL Hct (39.0-53.0) % Plt Count (150-450) k/uL Neutrophils # (1.3-7.7) k/uL Lymphocytes # (1.0-4.8) k/uL PT (9.0-12.0) sec INR (<1.2) APTT (22.0-30.0) sec ABG pH (7.35-7.45) ABG pCO2 (35-45) mmHg ABG pO2 378 H 407 H 322 H (83-108) mmHg ABG HCO3 (21-25) mmol/L ABG Total CO2 25 H 25 H 26 H (19-24) mmol/L ABG O2 Saturation 100.0 H 100.0 H 100.0 H (94-97) % ABG Hematocrit 33 L 32 L (34.0-46.0) % ABG Potassium 5.0 H 4.8 H (3.4-4.5) mmol/L ABG Ionized Calcium 4.1 L 4.1 L 4.1 L (4.5-5.3) mg/dL ABG Glucose 119 H 119 H (75-99) mg/dL Hemoglobin 10.7 L 10.9 L 10.6 L (13.0-17.5) gm/dL Sodium (137-145) mmol/L Creatinine (0.66-1.25) mg/dL Glucose (74-99) mg/dL POC Glucose (mg/dL) (75-99) mg/dL Calcium (8.4-10.2) mg/dL Magnesium (1.6-2.3) mg/dL Total Bilirubin (0.2-1.3) mg/dL Total Protein (6.3-8.2) g/dL Albumin (3.5-5.0) g/dL Arterial Blood Potassium 5.0 H 4.8 H (3.4-4.5) mmol/L Arterial Blood Glucose 119 H 119 H (75-99) mg/dL Crossmatch 11/03/20 11/03/20 11/03/20 Range/Units 15:02 15:41 15:54 WBC 13.7 H (3.8-10.6) k/uL RBC 4.07 L (4.30-5.90) m/uL Hgb (13.0-17.5) gm/dL Hct 38.7 L (39.0-53.0) % Plt Count 103 L (150-450) k/uL Neutrophils # 11.8 H (1.3-7.7) k/uL Lymphocytes # 0.9 L (1.0-4.8) k/uL PT (9.0-12.0) sec INR (<1.2) APTT (22.0-30.0) sec ABG pH (7.35-7.45) ABG pCO2 (35-45) mmHg ABG pO2 78 L (83-108) mmHg ABG HCO3 (21-25) mmol/L ABG Total CO2 26 H (19-24) mmol/L ABG O2 Saturation (94-97) % ABG Hematocrit (34.0-46.0) % ABG Potassium (3.4-4.5) mmol/L ABG Ionized Calcium (4.5-5.3) mg/dL ABG Glucose 118 H (75-99) mg/dL Hemoglobin 12.2 L (13.0-17.5) gm/dL Sodium (137-145) mmol/L Creatinine (0.66-1.25) mg/dL Glucose (74-99) mg/dL POC Glucose (mg/dL) 111 H (75-99) mg/dL Calcium (8.4-10.2) mg/dL Magnesium (1.6-2.3) mg/dL Total Bilirubin (0.2-1.3) mg/dL Total Protein (6.3-8.2) g/dL Albumin (3.5-5.0) g/dL Arterial Blood Potassium (3.4-4.5) mmol/L Arterial Blood Glucose 118 H (75-99) mg/dL Crossmatch 11/03/20 11/03/20 11/03/20 Range/Units 15:54 15:54 16:10 WBC (3.8-10.6) k/uL RBC (4.30-5.90) m/uL Hgb (13.0-17.5) gm/dL Hct (39.0-53.0) % Plt Count (150-450) k/uL Neutrophils # (1.3-7.7) k/uL Lymphocytes # (1.0-4.8) k/uL PT 12.6 H (9.0-12.0) sec INR 1.2 H (<1.2) APTT 33.7 H (22.0-30.0) sec ABG pH 7.33 L (7.35-7.45) ABG pCO2 48 H (35-45) mmHg ABG pO2 342 H (83-108) mmHg ABG HCO3 26 H (21-25) mmol/L ABG Total CO2 27 H (19-24) mmol/L ABG O2 Saturation 99.7 H (94-97) % ABG Hematocrit (34.0-46.0) % ABG Potassium (3.4-4.5) mmol/L ABG Ionized Calcium (4.5-5.3) mg/dL ABG Glucose (75-99) mg/dL Hemoglobin (13.0-17.5) gm/dL Sodium 135 L (137-145) mmol/L Creatinine 0.59 L (0.66-1.25) mg/dL Glucose 120 H (74-99) mg/dL POC Glucose (mg/dL) (75-99) mg/dL Calcium 7.9 L (8.4-10.2) mg/dL Magnesium 2.4 H (1.6-2.3) mg/dL Total Bilirubin 1.7 H (0.2-1.3) mg/dL Total Protein 4.6 L (6.3-8.2) g/dL Albumin 2.6 L (3.5-5.0) g/dL Arterial Blood Potassium (3.4-4.5) mmol/L Arterial Blood Glucose (75-99) mg/dL Crossmatch 11/03/20 11/03/20 11/03/20 Range/Units 16:29 17:09 18:02 WBC 14.5 H (3.8-10.6) k/uL RBC (4.30-5.90) m/uL Hgb (13.0-17.5) gm/dL Hct (39.0-53.0) % Plt Count 130 L (150-450) k/uL Neutrophils # 11.9 H (1.3-7.7) k/uL Lymphocytes # (1.0-4.8) k/uL PT (9.0-12.0) sec INR (<1.2) APTT (22.0-30.0) sec ABG pH (7.35-7.45) ABG pCO2 (35-45) mmHg ABG pO2 (83-108) mmHg ABG HCO3 (21-25) mmol/L ABG Total CO2 (19-24) mmol/L ABG O2 Saturation (94-97) % ABG Hematocrit (34.0-46.0) % ABG Potassium (3.4-4.5) mmol/L ABG Ionized Calcium (4.5-5.3) mg/dL ABG Glucose (75-99) mg/dL Hemoglobin (13.0-17.5) gm/dL Sodium (137-145) mmol/L Creatinine (0.66-1.25) mg/dL Glucose (74-99) mg/dL POC Glucose (mg/dL) 105 H 108 H (75-99) mg/dL Calcium (8.4-10.2) mg/dL Magnesium (1.6-2.3) mg/dL Total Bilirubin (0.2-1.3) mg/dL Total Protein (6.3-8.2) g/dL Albumin (3.5-5.0) g/dL Arterial Blood Potassium (3.4-4.5) mmol/L Arterial Blood Glucose (75-99) mg/dL Crossmatch 11/03/20 11/03/20 11/03/20 Range/Units 18:03 19:02 19:59 WBC (3.8-10.6) k/uL RBC (4.30-5.90) m/uL Hgb (13.0-17.5) gm/dL Hct (39.0-53.0) % Plt Count (150-450) k/uL Neutrophils # (1.3-7.7) k/uL Lymphocytes # (1.0-4.8) k/uL PT (9.0-12.0) sec INR (<1.2) APTT (22.0-30.0) sec ABG pH (7.35-7.45) ABG pCO2 (35-45) mmHg ABG pO2 (83-108) mmHg ABG HCO3 (21-25) mmol/L ABG Total CO2 (19-24) mmol/L ABG O2 Saturation (94-97) % ABG Hematocrit (34.0-46.0) % ABG Potassium (3.4-4.5) mmol/L ABG Ionized Calcium (4.5-5.3) mg/dL ABG Glucose (75-99) mg/dL Hemoglobin (13.0-17.5) gm/dL Sodium (137-145) mmol/L Creatinine (0.66-1.25) mg/dL Glucose (74-99) mg/dL POC Glucose (mg/dL) 140 H 133 H 133 H (75-99) mg/dL Calcium (8.4-10.2) mg/dL Magnesium (1.6-2.3) mg/dL Total Bilirubin (0.2-1.3) mg/dL Total Protein (6.3-8.2) g/dL Albumin (3.5-5.0) g/dL Arterial Blood Potassium (3.4-4.5) mmol/L Arterial Blood Glucose (75-99) mg/dL Crossmatch 11/03/20 11/03/20 11/03/20 Range/Units 20:50 20:55 21:59 WBC 12.9 H (3.8-10.6) k/uL RBC 3.87 L (4.30-5.90) m/uL Hgb 12.5 L (13.0-17.5) gm/dL Hct 36.6 L (39.0-53.0) % Plt Count 110 L (150-450) k/uL Neutrophils # 11.3 H (1.3-7.7) k/uL Lymphocytes # 0.7 L (1.0-4.8) k/uL PT (9.0-12.0) sec INR (<1.2) APTT (22.0-30.0) sec ABG pH (7.35-7.45) ABG pCO2 (35-45) mmHg ABG pO2 (83-108) mmHg ABG HCO3 (21-25) mmol/L ABG Total CO2 (19-24) mmol/L ABG O2 Saturation (94-97) % ABG Hematocrit (34.0-46.0) % ABG Potassium (3.4-4.5) mmol/L ABG Ionized Calcium (4.5-5.3) mg/dL ABG Glucose (75-99) mg/dL Hemoglobin (13.0-17.5) gm/dL Sodium (137-145) mmol/L Creatinine (0.66-1.25) mg/dL Glucose (74-99) mg/dL POC Glucose (mg/dL) 131 H 138 H (75-99) mg/dL Calcium (8.4-10.2) mg/dL Magnesium (1.6-2.3) mg/dL Total Bilirubin (0.2-1.3) mg/dL Total Protein (6.3-8.2) g/dL Albumin (3.5-5.0) g/dL Arterial Blood Potassium (3.4-4.5) mmol/L Arterial Blood Glucose (75-99) mg/dL Crossmatch 11/03/20 11/03/20 11/04/20 Range/Units 22:57 23:35 00:09 WBC (3.8-10.6) k/uL RBC (4.30-5.90) m/uL Hgb (13.0-17.5) gm/dL Hct (39.0-53.0) % Plt Count (150-450) k/uL Neutrophils # (1.3-7.7) k/uL Lymphocytes # (1.0-4.8) k/uL PT (9.0-12.0) sec INR (<1.2) APTT (22.0-30.0) sec ABG pH (7.35-7.45) ABG pCO2 (35-45) mmHg ABG pO2 131 H (83-108) mmHg ABG HCO3 (21-25) mmol/L ABG Total CO2 25 H (19-24) mmol/L ABG O2 Saturation 98.7 H (94-97) % ABG Hematocrit (34.0-46.0) % ABG Potassium (3.4-4.5) mmol/L ABG Ionized Calcium (4.5-5.3) mg/dL ABG Glucose (75-99) mg/dL Hemoglobin (13.0-17.5) gm/dL Sodium (137-145) mmol/L Creatinine (0.66-1.25) mg/dL Glucose (74-99) mg/dL POC Glucose (mg/dL) 133 H 134 H (75-99) mg/dL Calcium (8.4-10.2) mg/dL Magnesium (1.6-2.3) mg/dL Total Bilirubin (0.2-1.3) mg/dL Total Protein (6.3-8.2) g/dL Albumin (3.5-5.0) g/dL Arterial Blood Potassium (3.4-4.5) mmol/L Arterial Blood Glucose (75-99) mg/dL Crossmatch 11/04/20 11/04/20 11/04/20 Range/Units 01:00 01:56 03:06 WBC (3.8-10.6) k/uL RBC (4.30-5.90) m/uL Hgb (13.0-17.5) gm/dL Hct (39.0-53.0) % Plt Count (150-450) k/uL Neutrophils # (1.3-7.7) k/uL Lymphocytes # (1.0-4.8) k/uL PT (9.0-12.0) sec INR (<1.2) APTT (22.0-30.0) sec ABG pH (7.35-7.45) ABG pCO2 (35-45) mmHg ABG pO2 (83-108) mmHg ABG HCO3 (21-25) mmol/L ABG Total CO2 (19-24) mmol/L ABG O2 Saturation (94-97) % ABG Hematocrit (34.0-46.0) % ABG Potassium (3.4-4.5) mmol/L ABG Ionized Calcium (4.5-5.3) mg/dL ABG Glucose (75-99) mg/dL Hemoglobin (13.0-17.5) gm/dL Sodium (137-145) mmol/L Creatinine (0.66-1.25) mg/dL Glucose (74-99) mg/dL POC Glucose (mg/dL) 139 H 137 H 133 H (75-99) mg/dL Calcium (8.4-10.2) mg/dL Magnesium (1.6-2.3) mg/dL Total Bilirubin (0.2-1.3) mg/dL Total Protein (6.3-8.2) g/dL Albumin (3.5-5.0) g/dL Arterial Blood Potassium (3.4-4.5) mmol/L Arterial Blood Glucose (75-99) mg/dL Crossmatch 11/04/20 11/04/20 11/04/20 Range/Units 03:55 03:55 03:55 WBC 11.8 H (3.8-10.6) k/uL RBC 3.43 L (4.30-5.90) m/uL Hgb 11.1 L (13.0-17.5) gm/dL Hct 32.4 L (39.0-53.0) % Plt Count 106 L (150-450) k/uL Neutrophils # 9.7 H (1.3-7.7) k/uL Lymphocytes # (1.0-4.8) k/uL PT (9.0-12.0) sec INR (<1.2) APTT (22.0-30.0) sec ABG pH (7.35-7.45) ABG pCO2 (35-45) mmHg ABG pO2 (83-108) mmHg ABG HCO3 (21-25) mmol/L ABG Total CO2 (19-24) mmol/L ABG O2 Saturation (94-97) % ABG Hematocrit (34.0-46.0) % ABG Potassium (3.4-4.5) mmol/L ABG Ionized Calcium (4.5-5.3) mg/dL ABG Glucose (75-99) mg/dL Hemoglobin (13.0-17.5) gm/dL Sodium 135 L (137-145) mmol/L Creatinine (0.66-1.25) mg/dL Glucose 128 H (74-99) mg/dL POC Glucose (mg/dL) 125 H (75-99) mg/dL Calcium 7.9 L (8.4-10.2) mg/dL Magnesium (1.6-2.3) mg/dL Total Bilirubin 2.2 H (0.2-1.3) mg/dL Total Protein 4.7 L (6.3-8.2) g/dL Albumin 2.9 L (3.5-5.0) g/dL Arterial Blood Potassium (3.4-4.5) mmol/L Arterial Blood Glucose (75-99) mg/dL Crossmatch 11/04/20 11/04/20 11/04/20 Range/Units 04:58 06:03 06:55 WBC (3.8-10.6) k/uL RBC (4.30-5.90) m/uL Hgb (13.0-17.5) gm/dL Hct (39.0-53.0) % Plt Count (150-450) k/uL Neutrophils # (1.3-7.7) k/uL Lymphocytes # (1.0-4.8) k/uL PT (9.0-12.0) sec INR (<1.2) APTT (22.0-30.0) sec ABG pH (7.35-7.45) ABG pCO2 (35-45) mmHg ABG pO2 (83-108) mmHg ABG HCO3 (21-25) mmol/L ABG Total CO2 (19-24) mmol/L ABG O2 Saturation (94-97) % ABG Hematocrit (34.0-46.0) % ABG Potassium (3.4-4.5) mmol/L ABG Ionized Calcium (4.5-5.3) mg/dL ABG Glucose (75-99) mg/dL Hemoglobin (13.0-17.5) gm/dL Sodium (137-145) mmol/L Creatinine (0.66-1.25) mg/dL Glucose (74-99) mg/dL POC Glucose (mg/dL) 126 H 124 H 125 H (75-99) mg/dL Calcium (8.4-10.2) mg/dL Magnesium (1.6-2.3) mg/dL Total Bilirubin (0.2-1.3) mg/dL Total Protein (6.3-8.2) g/dL Albumin (3.5-5.0) g/dL Arterial Blood Potassium (3.4-4.5) mmol/L Arterial Blood Glucose (75-99) mg/dL Crossmatch 11/04/20 11/04/20 11/04/20 Range/Units 07:52 09:11 10:01 WBC (3.8-10.6) k/uL RBC (4.30-5.90) m/uL Hgb (13.0-17.5) gm/dL Hct (39.0-53.0) % Plt Count (150-450) k/uL Neutrophils # (1.3-7.7) k/uL Lymphocytes # (1.0-4.8) k/uL PT (9.0-12.0) sec INR (<1.2) APTT (22.0-30.0) sec ABG pH (7.35-7.45) ABG pCO2 (35-45) mmHg ABG pO2 (83-108) mmHg ABG HCO3 (21-25) mmol/L ABG Total CO2 (19-24) mmol/L ABG O2 Saturation (94-97) % ABG Hematocrit (34.0-46.0) % ABG Potassium (3.4-4.5) mmol/L ABG Ionized Calcium (4.5-5.3) mg/dL ABG Glucose (75-99) mg/dL Hemoglobin (13.0-17.5) gm/dL Sodium (137-145) mmol/L Creatinine (0.66-1.25) mg/dL Glucose (74-99) mg/dL POC Glucose (mg/dL) 121 H 129 H 119 H (75-99) mg/dL Calcium (8.4-10.2) mg/dL Magnesium (1.6-2.3) mg/dL Total Bilirubin (0.2-1.3) mg/dL Total Protein (6.3-8.2) g/dL Albumin (3.5-5.0) g/dL Arterial Blood Potassium (3.4-4.5) mmol/L Arterial Blood Glucose (75-99) mg/dL Crossmatch Microbiology - Last 24 Hours (Table) 11/02/20 16:41 Nasal Screen MRSA/MSSA - Final Nasal Swab Assessment and Plan Assessment: NSTEMI Status post CABG -Continue with aspirin, Plavix, statin -Cardiology consult -CT surgery following -Cardiac monitoring -Nitroglycerin drip, d/c'd -levophed drip, d/c'd -Milrinone drip, d/c'd -IVF + albumin for BP -Echocardiogram, EF 45-50% -Lines: 2 x mediastinal chest tubes, 1 x left pleural chest tube, [place], A- line, calderon Afib, newly diagnosed, paroxysmal, 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
[2020-11-04 11:14] LABS: Glucose,Whole Blood 123 mg/dL (75-99)
[2020-11-04 12:08] LABS: Glucose,Whole Blood 127 mg/dL (75-99)
[2020-11-04 13:11] LABS: Glucose,Whole Blood 164 mg/dL (75-99)
[2020-11-04 14:19] LABS: Glucose,Whole Blood 161 mg/dL (75-99)
[2020-11-04] MEDS ORDERED: ACETAMINOPHEN TAB 325 MG TAB PO PRN (14:46)
[2020-11-04 15:08] LABS: Glucose,Whole Blood 123 mg/dL (75-99)
[2020-11-04 16:13] LABS: Glucose,Whole Blood 115 mg/dL (75-99)
[2020-11-04 17:00] LABS: Glucose,Whole Blood 125 mg/dL (75-99)
[2020-11-04 17:55] LABS: Glucose,Whole Blood 171 mg/dL (75-99)
[2020-11-04 19:04] LABS: Glucose,Whole Blood 168 mg/dL (75-99)
[2020-11-04] MEDS: SENNOSIDES-DOCUSATE SODIUM 1 EACH TAB PO SCH (20:33)
[2020-11-04 20:51] LABS: Glucose,Whole Blood 101 mg/dL (75-99)
[2020-11-04 22:06] LABS: Glucose,Whole Blood 112 mg/dL (75-99)
[2020-11-04 22:54] LABS: Glucose,Whole Blood 133 mg/dL (75-99)
[2020-11-05 00:02] LABS: Glucose,Whole Blood 117 mg/dL (75-99)
[2020-11-05 01:24] LABS: Glucose,Whole Blood 111 mg/dL (75-99)
[2020-11-05 02:06] LABS: Glucose,Whole Blood 110 mg/dL (75-99)
[2020-11-05 04:18] LABS: Glucose,Whole Blood 115 mg/dL (75-99)
[2020-11-05 04:31] LABS: Basophils % (A) 0 %; Eosinophils # (A) 0.1 k/uL (0-0.7); Eosinophils % (A) 1 %; HCT 30.6 % (39.0-53.0); Lymphocytes # (A) 1.3 k/uL (1.0-4.8); Lymphocytes % (A) 14 %; MCH 31.2 pg (25.0-35.0); MCHC 32.5 g/dL (31.0-37.0); MCV 95.9 fL (80.0-100.0); Mean Platelet Volume 9.3; Monocytes # (A) 0.6 k/uL (0-1.0); Monocytes % (A) 6 %; Neutrophils # (A) 7.7 k/uL (1.3-7.7); Neutrophils % (A) 78 %; RBC 3.19 m/uL (4.30-5.90); RDW 14.3 % (11.5-15.5); WBC 9.8 k/uL (3.8-10.6)
[2020-11-05 04:44] LABS: Ionized Calcium 4.9 mg/dL (4.5-5.3)
[2020-11-05 04:56] LABS: ALT 13 U/L (4-49); AST 44 U/L (17-59); African American GFR (CKD) >90 (>60 ml/min/1.73 sqM); Albumin 3.1 g/dL (3.5-5.0); Alkaline Phosphatase 46 U/L (38-126); Anion Gap 5 mmol/L; Blood Urea Nitrogen 28 mg/dL (9-20); Calcium 8.4 mg/dL (8.4-10.2); Carbon Dioxide 23 mmol/L (22-30); Chloride 104 mmol/L (98-107); Glucose 108 mg/dL (74-99); Non-African American GFR(CKD) 85 (>60 ml/min/1.73 sqM); Sodium 132 mmol/L (137-145); Total Bilirubin 1.7 mg/dL (0.2-1.3)
[2020-11-05 05:14] LABS: Potassium 4.2 mmol/L (3.5-5.1)
[2020-11-05 05:27] LABS: Platelet Count 89 k/uL (150-450)
[2020-11-05 05:28] LABS: Glucose,Whole Blood 110 mg/dL (75-99)
[2020-11-05 06:02] LABS: Glucose,Whole Blood 121 mg/dL (75-99)
[2020-11-05] MEDS: LEVOTHYROXINE 75 MCG TAB PO SCH (06:56)
[2020-11-05] MEDS: PANTOPRAZOLE 40 MG TABLET PO SCH (06:56)
[2020-11-05] MEDS: KETOROLAC 15 MG/ML 1 ML VIAL IVP SCH ×3 (06:56→18:38)
[2020-11-05] MEDS: LACTATED RINGERS 1,000 ML IV SCH (06:57)
[2020-11-05 07:13] LABS: Glucose,Whole Blood 106 mg/dL (75-99)
--- NOTE | 2020-11-05 07:31 | XR ---
EXAMINATION TYPE: XR chest 1V portable DATE OF EXAM: 11/05/2020 COMPARISON: Chest x-ray 11/04/2020 HISTORY: Postop cardiac surgery, chest tube TECHNIQUE: Single frontal view of the chest is obtained. FINDINGS: Patient's left-sided chest tube remains in place. The central venous catheter has been rem edmund, sheath remains in place in the right jugular distribution. Cardiomediastinal silhouette is unch anged. Median sternal drains remain in place, postop changes again noted. Minimal left apical pneumot horax noted. Bibasilar increased attenuation again noted. IMPRESSION: Probable basilar atelectasis, there may be associated effusion. Cardiomegaly.
[2020-11-05 07:54] LABS: Glucose,Whole Blood 150 mg/dL (75-99)
[2020-11-05] MEDS ORDERED: FUROSEMIDE 10 MG/ML 4 ML VIAL IV STA (08:01)
--- NOTE | 2020-11-05 08:02 | P.PN ---
Subjective Progress Note Date: 11/05/20 Coronary artery disease status post coronary artery bypass grafting 80-year-old white male patient of Dr. 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 Patient states that every time he is walking his chest pain gets worse, and there is associated increased shortness of breath as well. Denied radiation to his arm, or his neck, no diaphoresis, no palpitations, no recent fever or chills, no cough, no swelling in his bilateral lower extremity's, no nausea vomiting or diarrhea. Patient was also seen by his steam meter reader in the office, and EKG showed atrial fibrillation with no acute changes. X-ray was completed showing borderline cardiomegaly, no heart failure, no significant change compared to old exam. CBC was within normal limits, coagulation profile was within normal limits electrolytes and renal profile were unremarkable, COVID-19 PCR was negative, his first troponin was less than 0.012, second and the third were 0.033 and 0.098. Patient underwent heart catheterization today and was found to have severe triple-vessel disease with a 95% disease involving the LV branch of a dominant RCA, there was a proximal LAD disease, and there was a disease involving the ramus of about 70%, was also made circumflex ostium lesion that was quite sig nificant. Filling pressures were normal. Echocardiogram was completed and mild concentric LVH, mildly impaired left ventricular systolic function with EF of 45-50%, mild MR, mild TR, and right-sided pressures of 47.8 mmHg. Was referred to cardiothoracic surgery for possibility of coronary artery bypass grafting, and we're consulted for pulmonary evaluation, and ICU management On 11/03/2020 patient is seen in the postoperative period in the intensive care unit following three-vessel coronary artery bypass grafting with the AZAR to the LAD, SVG to the OM, and SVG to the PLV, right leg endoscopic vein harvest, and exclusion of the left atrial appendage. Patient is sedated and intubated on assist control mode of ventilation, with a rate of 12, tidal volume is 400, FiO2 of 60% and PEEP of 5. He is on lactated Ringer's at a rate of 50 ML per hour, he is on Diprivan at 20 mics per kilo per minute, Primacor is at 0.375, nitroglycerin drip is at 5 mics per kilo per minute, Levophed is at 7 mics per minute. PA pressure is 30/18, cardiac output was 4.8 and cardiac index was 2.3 patient is currently being paced at DDD mode with a rate of 70, intrinsic rhythm is sinus rhythm with 1st degree AV block, required pacemaker support earlier for slow atrial fibrillation with a rate of 40 BPM. he has a 2 mediastinal left pleural chest tubes with small amount of serous output in the chest tubes, no evidence of air leak, postoperative blood gas and chest x-ray are pending at this time. The patient is seen today 11/04/2020 in follow-up in the intensive care unit. He was successfully extubated around midnight. He is currently sitting up in a chair at the bedside. He is down to 2 L/m per nasal cannula and maintaining O2 saturations in the 90s. Chest x-ray reveals evidence of mediastinal chest tubes 2. Output 390 ML's of serosanguineous fluid. 1 left-sided chest tube in place with 360 ML's of serosanguineous fluid. Patchy air space opacities in the perihilar and bibasilar regions suggestive of atelectasis. No pneumothorax. Nitroglycerin drip is off. He remains on milrinone at 0.2 mcg/kg/m. Norepinephrine at 0.1 mcg/kg/m. He is on insulin drip at 1 unit per hour. Cardiac output 6.8. Cardiac index 3.2. PA pressure 30/12. Blood pressure 108/55. He is currently in his own intrinsic rhythm with sinus rhythm with a first-degree AV block, rate in the 90s. White count 11.8. Hemoglobin 11.1. Platelets 106,000. Sodium 135. Potassium 4.1. Creatinine 0.8. Glucose 128. Albumin 2.9. AST 47. ALT 15. Received albumin this morning. Suraj on bronchodilators. Owing about 5168-3754 ML's on the incentive spirometer. He remains on heparin for DVT prophylaxis. SCDs in place. Protonix for GI prophylaxis. 11/05/2020, patient is postop day #2. Extubated on oxygen by nasal cannula at liters per minute. Chest x-ray showing a very tiny left apical pneumothorax. There are bilateral pleural effusion and atelectatic changes. There is a left- sided chest tube and a mediastinal chest tubes and are still in place. Output from the chest tubes have been in the order of 150 mL on the mediastinal chest tube and 500cc in the left pleural chest tube over the past 24 hours.. His IS approximately 800 mL on incentive spirometer. [place] catheter removed. Hemodynamically stable. Pain is under adequate control. Cardiac rhythm is atrial fibrillation with a controlled rate. Neurologically stable. Awake and alert. Following commands. Moving all 4 extremities without any limitation. No signs of any respiratory distress. He is currently on aspirin. Objective - Vital Signs Vital signs: Vital Signs Temp 99.2 F 11/05/20 04:00 Pulse 97 11/05/20 07:00 Resp 22 11/05/20 07:00 BP 117/65 11/05/20 07:00 Pulse Ox 94 L 11/05/20 07:00 Intake & Output 11/04/20 11/05/20 11/05/20 18:59 06:59 18:59 Intake Total 1901.472 724.103 26 Output Total 650 600 45 Balance 1251.472 124.103 -19 Weight 102.8 kg 105.1 kg Intake: IV 1389.00 312 26 .9NS Cardiac Output 90 .9NS Pressure bag 102 72 6 Albumin Human 5% 250 ml 500 In Empty Bag 1 bag @ 250 mls/hr IVPB Q1HR PRN Rx#: [id number] Lactated Ringers 1,000 ml 570 240 20 @ 20 mls/hr IV .Q24H KEVIN Rx#:[id number] Nitroglycerine 1.5 Primacor 25.50 ceFAZolin 2 gm In Sodium 100 Chloride 0.9% 50 ml @ 100 mls/hr IVPB Q8H KEVIN Rx#: [id number] Intake, IV Titration 332.472 12.103 Amount Insulin Regular 100 unit 25.561 12.103 In Sodium Chloride 0.9% 100 ml @ Per Protocol IV .Q0M KEVIN Rx#:[id number] Norepinephrine 4 mg In 306.911 Sodium Chloride 0.9% 250 ml @ 0.05 MCG/KG/MIN 19. 01 mls/hr IV .[id number] COUNTS INCLUDE 234 BEDS AT THE [facility] Rx#:[id number] Oral 180 400 Output: Chest Tube Drainage 395 330 10 Left Chest Tube 305 240 10 Mediastinal Pawel Tube X 2 90 90 0 Urine 255 270 35 Other: Voiding Method Indwelling Catheter Indwelling Catheter ABP, PAP, CO, CI - Last Documented Arterial Blood Pressure 137/61 Pulmonary Artery Pressure 39/16 Cardiac Output 6.8 Cardiac Index 3.2 - Exam - Exam GENERAL EXAM: Alert, very pleasant 80-year-old gentleman up in a chair at the bedside. On 2 L nasal cannula, comfortable in no apparent distress. HEAD: Normocephalic. EYES: Normal reaction of pupils, equal size. NOSE: Clear with pink turbinates. THROAT: No erythema or exudates. NECK: Right IJ [place] catheter in place No masses, no JVD. CHEST: Surgical dressing dry and intact. Heart Hugger in place. Mediastinal an d chest tubes in place to wall suction. No air leaks. AV pacer wires present, grounded. LUNGS: Equal air entry with faint crackles in the bilateral posterior bases. CVS: S1 and S2 normal with no audible murmur, irregular rhythm. ABDOMEN: No hepatosplenomegaly, normal bowel sounds, no guarding or rigidity. SPINE: No scoliosis or deformity SKIN: No rashes CENTRAL NERVOUS SYSTEM: No focal deficits, tone is normal in all 4 extremities. EXTREMITIES: Right radial arterial line in place There is trace peripheral edema. No clubbing, no cyanosis. Peripheral pulses are intact. - Labs CBC & Chem 7: 11/05/20 04:15 11/05/20 04:15 Labs: Abnormal Lab Results - Last 24 Hours (Table) 11/04/20 11/04/20 11/04/20 Range/Units 07:52 09:11 10:01 RBC (4.30-5.90) m/uL Hgb (13.0-17.5) gm/dL Hct (39.0-53.0) % Plt Count (150-450) k/uL Sodium (137-145) mmol/L BUN (9-20) mg/dL Glucose (74-99) mg/dL POC Glucose (mg/dL) 121 H 129 H 119 H (75-99) mg/dL Total Bilirubin (0.2-1.3) mg/dL Total Protein (6.3-8.2) g/dL Albumin (3.5-5.0) g/dL 11/04/20 11/04/20 11/04/20 Range/Units 11:12 12:06 13:10 RBC (4.30-5.90) m/uL Hgb (13.0-17.5) gm/dL Hct (39.0-53.0) % Plt Count (150-450) k/uL Sodium (137-145) mmol/L BUN (9-20) mg/dL Glucose (74-99) mg/dL POC Glucose (mg/dL) 123 H 127 H 164 H (75-99) mg/dL Total Bilirubin (0.2-1.3) mg/dL Total Protein (6.3-8.2) g/dL Albumin (3.5-5.0) g/dL 11/04/20 11/04/20 11/04/20 Range/Units 14:18 15:06 16:10 RBC (4.30-5.90) m/uL Hgb (13.0-17.5) gm/dL Hct (39.0-53.0) % Plt Count (150-450) k/uL Sodium (137-145) mmol/L BUN (9-20) mg/dL Glucose (74-99) mg/dL POC Glucose (mg/dL) 161 H 123 H 115 H (75-99) mg/dL Total Bilirubin (0.2-1.3) mg/dL Total Protein (6.3-8.2) g/dL Albumin (3.5-5.0) g/dL 11/04/20 11/04/20 11/04/20 Range/Units 16:58 17:53 19:02 RBC (4.30-5.90) m/uL Hgb (13.0-17.5) gm/dL Hct (39.0-53.0) % Plt Count (150-450) k/uL Sodium (137-145) mmol/L BUN (9-20) mg/dL Glucose (74-99) mg/dL POC Glucose (mg/dL) 125 H 171 H 168 H (75-99) mg/dL Total Bilirubin (0.2-1.3) mg/dL Total Protein (6.3-8.2) g/dL Albumin (3.5-5.0) g/dL 11/04/20 11/04/20 11/04/20 Range/Units 20:47 22:05 22:52 RBC (4.30-5.90) m/uL Hgb (13.0-17.5) gm/dL Hct (39.0-53.0) % Plt Count (150-450) k/uL Sodium (137-145) mmol/L BUN (9-20) mg/dL Glucose (74-99) mg/dL POC Glucose (mg/dL) 101 H 112 H 133 H (75-99) mg/dL Total Bilirubin (0.2-1.3) mg/dL Total Protein (6.3-8.2) g/dL Albumin (3.5-5.0) g/dL 11/05/20 11/05/20 11/05/20 Range/Units 00:01 01:20 02:05 RBC (4.30-5.90) m/uL Hgb (13.0-17.5) gm/dL Hct (39.0-53.0) % Plt Count (150-450) k/uL Sodium (137-145) mmol/L BUN (9-20) mg/dL Glucose (74-99) mg/dL POC Glucose (mg/dL) 117 H 111 H 110 H (75-99) mg/dL Total Bilirubin (0.2-1.3) mg/dL Total Protein (6.3-8.2) g/dL Albumin (3.5-5.0) g/dL 11/05/20 11/05/20 11/05/20 Range/Units 04:15 04:15 04:16 RBC 3.19 L (4.30-5.90) m/uL Hgb 10.0 L (13.0-17.5) gm/dL Hct 30.6 L (39.0-53.0) % Plt Count 89 L (150-450) k/uL Sodium 132 L (137-145) mmol/L BUN 28 H (9-20) mg/dL Glucose 108 H (74-99) mg/dL POC Glucose (mg/dL) 115 H (75-99) mg/dL Total Bilirubin 1.7 H (0.2-1.3) mg/dL Total Protein 5.0 L (6.3-8.2) g/dL Albumin 3.1 L (3.5-5.0) g/dL 11/05/20 11/05/20 11/05/20 Range/Units 05:24 06:01 07:11 RBC (4.30-5.90) m/uL Hgb (13.0-17.5) gm/dL Hct (39.0-53.0) % Plt Count (150-450) k/uL Sodium (137-145) mmol/L BUN (9-20) mg/dL Glucose (74-99) mg/dL POC Glucose (mg/dL) 110 H 121 H 106 H (75-99) mg/dL Total Bilirubin (0.2-1.3) mg/dL Total Protein (6.3-8.2) g/dL Albumin (3.5-5.0) g/dL 11/05/20 Range/Units 07:53 RBC (4.30-5.90) m/uL Hgb (13.0-17.5) gm/dL Hct (39.0-53.0) % Plt Count (150-450) k/uL Sodium (137-145) mmol/L BUN (9-20) mg/dL Glucose (74-99) mg/dL POC Glucose (mg/dL) 150 H (75-99) mg/dL Total Bilirubin (0.2-1.3) mg/dL Total Protein (6.3-8.2) g/dL Albumin (3.5-5.0) g/dL Assessment and Plan Plan: 1 Symptomatic multivessel coronary artery disease, status post three-vessel coronary artery bypass grafting with AZAR to the LAD, and SVG to the OM and PLV, left atrial appendage exclusion, postoperative day #2 2 Routine postoperative ventilator management, extubated at 00:06 this morning 11/04/2020, currently on 2 L nasal cannula 3 Coronary artery disease with previous PCI 4 Hypertension 5 Chronic A. fib, sinus rhythm, the patient went back in Rpuinder fibrillation with a controlled rate for now. 6 Remote and brief history of smoking 7 Congenital malformation of the sternal bone, and patient has a chronic indent ation of the sternum, pectus excavatum 8 Obstructive sleep apnea 9 Hypothyroidism 10 Hyperactive bladder 11 History of prostate cancer with seed implants in 2002 12 Osteoarthritis 13 Previous history of myocardial infarction 14 Daily use of cannabis Plan: 40 mg IV 1 of Lasix Metoprolol 12.5 mg by mouth twice a day Continue aspirin Possibly remove the mediastinal chest tubes Continue using incentive spirometer We'll keep in ICU for another 24 hours Heparin for DVT prophylaxis
[2020-11-05] MEDS: IPRATROPIUM-ALBUTEROL 3 ML NEB INHALATION SCH ×4 (08:07→20:05)
[2020-11-05] MEDS ORDERED: METOPROLOL TARTRATE 25 MG TAB PO SCH (09:00)
--- NOTE | 2020-11-05 09:03 | P.PN ---
Subjective Progress Note Date: 11/05/20 Principal diagnosis: Symptomatic multivessel coronary artery disease, non-STEMI this admission. Previous medical history of CAD with prior stenting 15 years ago, hypertension, hyperlipidemia, paroxysmal atrial fibrillation with refusal of anticoagulation, hypothyroidism, obstructive sleep apnea with home CPAP use, prostate cancer with radiation seed treatment and subsequent bladder and bowel incontinence, diverticulosis, left leg cellulitis in April 2021, bilateral hip replacements with repeat surgery due to osteomyelitis, previous tobacco dependence, daily wine consumption, nightly cannabis use POD #2 coronary bypass grafting 3 vessels, left internal mammary artery to the left anterior descending artery, reverse saphenous vein graft to the obtuse marginal artery, reverse saphenous vein graft to posterior lateral branch of the right coronary artery, endoscopic harvesting of the right greater saphenous vein, ligation of the left atrial appendage using a 35 mm AtriClip, epi-aortic ultrasound and intraoperative transesophageal echocardiogram. Postoperative acute blood loss anemia and thrombocytopenia, expected given hemodilution and cardiopulmonary bypass pump The patient was seen in follow-up today 11/05/2020 at his bedside in the intensive care unit. Currently he is sitting up to the bedside chair, is awake, alert and oriented 3 and is in no acute distress. He denies any complaints of shortness of breath or pain at this time. He is on 2 L nasal cannula with oxygen saturations 96% and he is achieving 750 mL on his incentive spirometry with much encouragement. Bedside monitor is showing atrial fibrillation with heart rate 96 BPM. His beta bc was held yesterday due to a long first- degree AV block. He remains hemodynamically stable and is currently on no inotropic or pressor support. Right IJ cordis remains in place with continuous CVP monitoring, current CVP pressure of 14 mmHg. Mediastinal and left pleural chest tubes remain in place to low continuous wall suction -20 cm H2O. No air leak is present. Mediastinal chest tubes draining thin serosanguineous drainage with 50 mL output in the last 8 hours and 150 mL output in the last 24 hours. Left pleural chest tube is draining thin serosanguineous drainage with 180 mL output in the last 8 hours and 500 mL output in the last 24 hours. Objective - Vital Signs Vital signs: Vital Signs Temp 99.2 F 11/05/20 04:00 Pulse 82 11/05/20 08:19 Resp 22 11/05/20 07:00 BP 117/65 11/05/20 07:00 Pulse Ox 94 L 11/05/20 07:00 Intake & Output 11/04/20 11/05/20 11/05/20 18:59 06:59 18:59 Intake Total 1901.472 724.103 26 Output Total 650 600 45 Balance 1251.472 124.103 -19 Weight 102.8 kg 105.1 kg Intake: IV 1389.00 312 26 .9NS Cardiac Output 90 .9NS Pressure bag 102 72 6 Albumin Human 5% 250 ml 500 In Empty Bag 1 bag @ 250 mls/hr IVPB Q1HR PRN Rx#: [id number] Lactated Ringers 1,000 ml 570 240 20 @ 20 mls/hr IV .Q24H KEVIN Rx#:[id number] Nitroglycerine 1.5 Primacor 25.50 ceFAZolin 2 gm In Sodium 100 Chloride 0.9% 50 ml @ 100 mls/hr IVPB Q8H KEVIN Rx#: [id number] Intake, IV Titration 332.472 12.103 Amount Insulin Regular 100 unit 25.561 12.103 In Sodium Chloride 0.9% 100 ml @ Per Protocol IV .Q0M KEVIN Rx#:[id number] Norepinephrine 4 mg In 306.911 Sodium Chloride 0.9% 250 ml @ 0.05 MCG/KG/MIN 19. 01 mls/hr IV .[id number] KEVIN Rx#:[id number] Oral 180 400 Output: Chest Tube Drainage 395 330 10 Left Chest Tube 305 240 10 Mediastinal Pawel Tube X 2 90 90 0 Urine 255 270 35 Other: Voiding Method Indwelling Catheter Indwelling Catheter ABP, PAP, CO, CI - Last Documented Arterial Blood Pressure 137/61 Pulmonary Artery Pressure 39/16 Cardiac Output 6.8 Cardiac Index 3.2 - Exam CONSTITUTIONAL: Sitting up to the bedside chair in the intensive care unit, appears comfortable, cooperative, no apparent acute distress. HEENT: Neck is supple, no JVD, no lymphadenopathy. Right IJ Cordis and functioning. RESPIRATORY: Lungs sounds essentially clear throughout, diminished to his bilateral bases. Respirations are symmetrical and nonlabored. Currently on 2 L nasal cannula with oxygen saturations 96%. Able to achieve 750 mL on their incentive spirometry. Strong cough. CARDIOVASCULAR: Irregular rhythm and controlled rate. S1 and S2 present, negative for S3, gallop or murmur. Sternum is stable. Palpable peripheral pulses bilaterally, No calf pain or tenderness noted. Heart hugger in place with patient demonstrating appropriate use. Knee-high MARGO hose and sequential compression devices in place to his bilateral lower extremities. GASTROINTESTINAL: Abdomen soft, nontender, nondistended. Hypoactive bowel sounds present 4 quadrants. Tolerating diet. Passing flatus. No guarding or rigidity. GENITOURINARY: Granados present draining clear, yellow urine. Output 200 mL in the last 8 hours INTEGUMENTARY: Skin is warm and dry with evidence of good perfusion. Midline sternal incision clean dry and well approximated, covered with dry intact dressi ng. Right lower extremity EVH site well approximated without redness or drainage. No drainage or redness is present. NEUROLOGIC: Cranial nerves II through XII intact. No focal deficits. MUSKULOSKELETAL: Able to move all extremities, strength equal bilaterally, generalized weakness. PSYCHIATRIC: Alert and oriented to person place and time, appropriate affect, intact judgment and insight. INVASIVE LINES AND TUBES: Mediastinal/left pleural chest tubes present and connected to low continuous wall suction, no air leaks present. Mediastinal tube with 50 mL of thin serosanguineous drainage overnight, 150 mL output in the last 24 hours. Left pleural chest tube with 180 mL of thin serosanguineous drainage overnight, 5000 mL out in the last 24 hours . Atrial and ventricular epicardial pacemaker wirin place and grounded . Right internal jugular Cordis, right radial arterial line present. Last CVP 14 mmHg. - Labs CBC & Chem 7: 11/05/20 04:15 11/05/20 04:15 Labs: Abnormal Lab Results - Last 24 Hours (Table) 11/04/20 11/04/20 11/04/20 Range/Units 09:11 10:01 11:12 RBC (4.30-5.90) m/uL Hgb (13.0-17.5) gm/dL Hct (39.0-53.0) % Plt Count (150-450) k/uL Sodium (137-145) mmol/L BUN (9-20) mg/dL Glucose (74-99) mg/dL POC Glucose (mg/dL) 129 H 119 H 123 H (75-99) mg/dL Total Bilirubin (0.2-1.3) mg/dL Total Protein (6.3-8.2) g/dL Albumin (3.5-5.0) g/dL 11/04/20 11/04/20 11/04/20 Range/Units 12:06 13:10 14:18 RBC (4.30-5.90) m/uL Hgb (13.0-17.5) gm/dL Hct (39.0-53.0) % Plt Count (150-450) k/uL Sodium (137-145) mmol/L BUN (9-20) mg/dL Glucose (74-99) mg/dL POC Glucose (mg/dL) 127 H 164 H 161 H (75-99) mg/dL Total Bilirubin (0.2-1.3) mg/dL Total Protein (6.3-8.2) g/dL Albumin (3.5-5.0) g/dL 11/04/20 11/04/20 11/04/20 Range/Units 15:06 16:10 16:58 RBC (4.30-5.90) m/uL Hgb (13.0-17.5) gm/dL Hct (39.0-53.0) % Plt Count (150-450) k/uL Sodium (137-145) mmol/L BUN (9-20) mg/dL Glucose (74-99) mg/dL POC Glucose (mg/dL) 123 H 115 H 125 H (75-99) mg/dL Total Bilirubin (0.2-1.3) mg/dL Total Protein (6.3-8.2) g/dL Albumin (3.5-5.0) g/dL 11/04/20 11/04/20 11/04/20 Range/Units 17:53 19:02 20:47 RBC (4.30-5.90) m/uL Hgb (13.0-17.5) gm/dL Hct (39.0-53.0) % Plt Count (150-450) k/uL Sodium (137-145) mmol/L BUN (9-20) mg/dL Glucose (74-99) mg/dL POC Glucose (mg/dL) 171 H 168 H 101 H (75-99) mg/dL Total Bilirubin (0.2-1.3) mg/dL Total Protein (6.3-8.2) g/dL Albumin (3.5-5.0) g/dL 11/04/20 11/04/20 11/05/20 Range/Units 22:05 22:52 00:01 RBC (4.30-5.90) m/uL Hgb (13.0-17.5) gm/dL Hct (39.0-53.0) % Plt Count (150-450) k/uL Sodium (137-145) mmol/L BUN (9-20) mg/dL Glucose (74-99) mg/dL POC Glucose (mg/dL) 112 H 133 H 117 H (75-99) mg/dL Total Bilirubin (0.2-1.3) mg/dL Total Protein (6.3-8.2) g/dL Albumin (3.5-5.0) g/dL 11/05/20 11/05/20 11/05/20 Range/Units 01:20 02:05 04:15 RBC 3.19 L (4.30-5.90) m/uL Hgb 10.0 L (13.0-17.5) gm/dL Hct 30.6 L (39.0-53.0) % Plt Count 89 L (150-450) k/uL Sodium (137-145) mmol/L BUN (9-20) mg/dL Glucose (74-99) mg/dL POC Glucose (mg/dL) 111 H 110 H (75-99) mg/dL Total Bilirubin (0.2-1.3) mg/dL Total Protein (6.3-8.2) g/dL Albumin (3.5-5.0) g/dL 11/05/20 11/05/20 11/05/20 Range/Units 04:15 04:16 05:24 RBC (4.30-5.90) m/uL Hgb (13.0-17.5) gm/dL Hct (39.0-53.0) % Plt Count (150-450) k/uL Sodium 132 L (137-145) mmol/L BUN 28 H (9-20) mg/dL Glucose 108 H (74-99) mg/dL POC Glucose (mg/dL) 115 H 110 H (75-99) mg/dL Total Bilirubin 1.7 H (0.2-1.3) mg/dL Total Protein 5.0 L (6.3-8.2) g/dL Albumin 3.1 L (3.5-5.0) g/dL 11/05/20 11/05/20 11/05/20 Range/Units 06:01 07:11 07:53 RBC (4.30-5.90) m/uL Hgb (13.0-17.5) gm/dL Hct (39.0-53.0) % Plt Count (150-450) k/uL Sodium (137-145) mmol/L BUN (9-20) mg/dL Glucose (74-99) mg/dL POC Glucose (mg/dL) 121 H 106 H 150 H (75-99) mg/dL Total Bilirubin (0.2-1.3) mg/dL Total Protein (6.3-8.2) g/dL Albumin (3.5-5.0) g/dL Assessment and Plan Assessment: 1. Symptomatic multivessel coronary artery disease, non-STEMI this admission, status post three-vessel CABG 2. History of CAD with prior stenting 15 years ago 3. Hypertension, resolved 4. Hyperlipidemia, cholesterol 216, LDL 136 on admission 5. Chronic paroxysmal atrial fibrillation with refusal of anticoagulation, status post left atrial appendage ligation 6. Hypothyroidism 7. Obstructive sleep apnea with home CPAP use 8. Prostate cancer with radiation seed treatment and subsequent bladder and bowel incontinence 9. Diverticulosis 10. Left leg cellulitis in April 2021 11. 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 Previous tobacco dependence 13. Daily wine consumption 14. Nightly cannabis use 14. Postoperative acute blood loss anemia and thrombocytopenia, expected Plan: 1. Continue aspirin, statin, Plavix. Patient has refused statin in the past due to significant myalgias and weakness. 2. Metoprolol tartrate 12.5 mg by mouth twice a day initiated. 3. Wean O2 as tolerated. Encourage incentive spirometry 10 times every hour while awake. Bronchodilators per pulmonology. 4. Increase activity, ambulate as tolerated. PT/OT/cardiac rehab following. 5. Will monitor daily labs and chest x-rays. Electrolyte replacement per protocol. 6. GI/DVT prophylaxis. 7. Pain controlled current medication regimen. 8. Insulin management per primary care service. Patient is not diabetic, preoperative hemoglobin A1c 5.2% 9. We will remove his mediastinal chest tubes today, keep his left pleural chest tubes in place to low continuous wall suction. Anticipate removal of left pleural chest tube in the next 24 hours. 10. Remove right IJ Cordis. 11. Keep Granados catheter for another 24 hours for strict accurate intake and output. Daily weights. 12. Lasix 40 mg IV 1 now. 13. Anticipated transfer to third floor cardiac stepdown unit and the 24 hours. 14. More recommendations to follow based on patient's clinical course. Time with Patient: Greater than 30
[2020-11-05] MEDS: METOPROLOL TARTRATE 12.5 MG TAB PO SCH ×2 (09:42→19:52)
[2020-11-05] MEDS: ASPIRIN 325 MG TAB PO SCH (09:42)
[2020-11-05] MEDS: CLOPIDOGREL 75 MG TAB PO SCH (09:42)
[2020-11-05] MEDS: THIAMINE 100 MG TAB PO SCH (09:42)
[2020-11-05] MEDS: ATORVASTATIN 40 MG TAB PO SCH (09:42)
[2020-11-05] MEDS: MUPIROCIN 2% OINT 22 GM TUBE NASAL SCH ×2 (09:43→19:52)
[2020-11-05] MEDS: FOLIC ACID 1 MG TAB PO SCH (09:43)
[2020-11-05] MEDS: HEPARIN SODIUM,PORCINE/PF 5,000 UNIT/0.5 ML SYRINGE SQ SCH ×2 (09:43→16:28)
[2020-11-05 11:29] LABS: Glucose,Whole Blood 135 mg/dL (75-99)
[2020-11-05] MEDS: INSULIN ASPART (NovoLOG) 100 UNIT/ML VIAL SQ SCH ×3 (12:10→21:00)
--- NOTE | 2020-11-05 12:52 | P.PN ---
Subjective Progress Note Date: 11/05/20 No new complaints today. Pt did not get good rest yesterday, but overall clinically improving. Able to ambulate hallway yesterday with help. Mediastinal chest tube and [place] pulled. Cordis still in place, can be pulled. Calderon in place, left pleural and 1 mediastinal chest tube still in place. Rec'd lasix with good response. Objective - Vital Signs Vital signs: Vital Signs Temp 99.5 F 11/05/20 09:00 Pulse 80 11/05/20 12:48 Resp 24 11/05/20 12:00 BP 106/65 11/05/20 12:00 Pulse Ox 97 11/05/20 12:00 Intake & Output 11/04/20 11/05/20 11/05/20 18:59 06:59 18:59 Intake Total 1901.472 724.103 156 Output Total 003 893 7407 Balance 1251.472 124.103 -844 Weight 102.8 kg 105.1 kg Intake: IV 1389.00 312 156 .9NS Cardiac Output 90 .9NS Pressure bag 102 72 36 Albumin Human 5% 250 ml 500 In Empty Bag 1 bag @ 250 mls/hr IVPB Q1HR PRN Rx#: [id number] Lactated Ringers 1,000 ml 570 240 120 @ 20 mls/hr IV .Q24H [facility] Rx#:[id number] Nitroglycerine 1.5 Primacor 25.50 ceFAZolin 2 gm In Sodium 100 Chloride 0.9% 50 ml @ 100 mls/hr IVPB Q8H [facility] Rx#: [id number] Intake, IV Titration 332.472 12.103 Amount Insulin Regular 100 unit 25.561 12.103 In Sodium Chloride 0.9% 100 ml @ Per Protocol IV .Q0M [facility] Rx#:[id number] Norepinephrine 4 mg In 306.911 Sodium Chloride 0.9% 250 ml @ 0.05 MCG/KG/MIN 19. 01 mls/hr IV .[id number] [facility] Rx#:[id number] Oral 180 400 Output: Chest Tube Drainage 395 330 190 Left Chest Tube 305 240 170 Mediastinal Pawel Tube X 2 90 90 20 Urine 255 270 810 Other: Voiding Method Indwelling Catheter Indwelling Catheter ABP, PAP, CO, CI - Last Documented Arterial Blood Pressure 119/59 Pulmonary Artery Pressure 39/16 Cardiac Output 5.9 Cardiac Index 2.8 - Exam Gen: awake, alert HEENT: normocephalic, atraumatic, good hearing acuity, moist mucous membranes Resp: breathing comfortably without accessory muscle use, adequate chest expansion CVS: good distal perfusion x 4, regular rate and rhythm GI: soft, NTTP, ND : no SPT, no CVAT, calderon catheter is present MSK: Trace to 1+ pitting edema, no clubbing Neuro: non-focal, moving all extremities - Labs CBC & Chem 7: 11/05/20 04:15 11/05/20 04:15 Labs: Abnormal Lab Results - Last 24 Hours (Table) 11/04/20 11/04/20 11/04/20 Range/Units 13:10 14:18 15:06 RBC (4.30-5.90) m/uL Hgb (13.0-17.5) gm/dL Hct (39.0-53.0) % Plt Count (150-450) k/uL Sodium (137-145) mmol/L BUN (9-20) mg/dL Glucose (74-99) mg/dL POC Glucose (mg/dL) 164 H 161 H 123 H (75-99) mg/dL Total Bilirubin (0.2-1.3) mg/dL Total Protein (6.3-8.2) g/dL Albumin (3.5-5.0) g/dL 11/04/20 11/04/20 11/04/20 Range/Units 16:10 16:58 17:53 RBC (4.30-5.90) m/uL Hgb (13.0-17.5) gm/dL Hct (39.0-53.0) % Plt Count (150-450) k/uL Sodium (137-145) mmol/L BUN (9-20) mg/dL Glucose (74-99) mg/dL POC Glucose (mg/dL) 115 H 125 H 171 H (75-99) mg/dL Total Bilirubin (0.2-1.3) mg/dL Total Protein (6.3-8.2) g/dL Albumin (3.5-5.0) g/dL 11/04/20 11/04/20 11/04/20 Range/Units 19:02 20:47 22:05 RBC (4.30-5.90) m/uL Hgb (13.0-17.5) gm/dL Hct (39.0-53.0) % Plt Count (150-450) k/uL Sodium (137-145) mmol/L BUN (9-20) mg/dL Glucose (74-99) mg/dL POC Glucose (mg/dL) 168 H 101 H 112 H (75-99) mg/dL Total Bilirubin (0.2-1.3) mg/dL Total Protein (6.3-8.2) g/dL Albumin (3.5-5.0) g/dL 11/04/20 11/05/20 11/05/20 Range/Units 22:52 00:01 01:20 RBC (4.30-5.90) m/uL Hgb (13.0-17.5) gm/dL Hct (39.0-53.0) % Plt Count (150-450) k/uL Sodium (137-145) mmol/L BUN (9-20) mg/dL Glucose (74-99) mg/dL POC Glucose (mg/dL) 133 H 117 H 111 H (75-99) mg/dL Total Bilirubin (0.2-1.3) mg/dL Total Protein (6.3-8.2) g/dL Albumin (3.5-5.0) g/dL 11/05/20 11/05/20 11/05/20 Range/Units 02:05 04:15 04:15 RBC 3.19 L (4.30-5.90) m/uL Hgb 10.0 L (13.0-17.5) gm/dL Hct 30.6 L (39.0-53.0) % Plt Count 89 L (150-450) k/uL Sodium 132 L (137-145) mmol/L BUN 28 H (9-20) mg/dL Glucose 108 H (74-99) mg/dL POC Glucose (mg/dL) 110 H (75-99) mg/dL Total Bilirubin 1.7 H (0.2-1.3) mg/dL Total Protein 5.0 L (6.3-8.2) g/dL Albumin 3.1 L (3.5-5.0) g/dL 11/05/20 11/05/2021 Range/Units 04:16 05:24 06:01 RBC (4.30-5.90) m/uL Hgb (13.0-17.5) gm/dL Hct (39.0-53.0) % Plt Count (150-450) k/uL Sodium (137-145) mmol/L BUN (9-20) mg/dL Glucose (74-99) mg/dL POC Glucose (mg/dL) 115 H 110 H 121 H (75-99) mg/dL Total Bilirubin (0.2-1.3) mg/dL Total Protein (6.3-8.2) g/dL Albumin (3.5-5.0) g/dL 11/05/20 11/05/20 11/05/20 Range/Units 07:11 07:53 11:27 RBC (4.30-5.90) m/uL Hgb (13.0-17.5) gm/dL Hct (39.0-53.0) % Plt Count (150-450) k/uL Sodium (137-145) mmol/L BUN (9-20) mg/dL Glucose (74-99) mg/dL POC Glucose (mg/dL) 106 H 150 H 135 H (75-99) mg/dL Total Bilirubin (0.2-1.3) mg/dL Total Protein (6.3-8.2) g/dL Albumin (3.5-5.0) g/dL Assessment and Plan Assessment: NSTEMI Status post CABG -Continue with aspirin, Plavix, statin -Cardiology consult -CT surgery following -Cardiac monitoring -Nitroglycerin drip, d/c'd -levophed drip, d/c'd -Milrinone drip, d/c'd -IVF + albumin for BP; rec'd lasix 11/05 -Echocardiogram, EF 45-50% -Lines: 1 x mediastinal chest tubes, 1 x left pleural chest tube, [place]-Ed[place], A- line, calderon Afib, newly diagnosed, paroxysmal, 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
--- NOTE | 2020-11-05 16:36 | P.PN ---
Subjective Patient is doing well. No significant chest discomfort no breathing trouble His mediastinal chest tubes were removed today Pulse rate in the 70s and 80s He is in atrial fibrillation Respirations 20 Blood pressure 116/66 mmHg Breath sounds are reduced bilaterally but no rhonchi no crackles Soft heart sounds normal S1 normal S2 no murmurs Impression Crescendo angina followed by non-Q-wave myocardial infarction Persistent atrial fibrillation Coronary artery bypass grafting with AZAR to the LAD, saphenous vein graft to the obtuse marginal, saphenous vein graft to the posterior lateral branch of the RCA Ligation of the left atrial appendage Muscle pains with multiple statins, patient stopped taking statins when he is back as he cannot tolerate them Plan Continue current medications including aspirin Plavix and low-dose beta blockers atorvastatin 40 mg by mouth daily Continue postoperative care per CV surgery Objective - Vital Signs Vital signs: Vital Signs Temp 99.5 F 11/05/20 09:00 Pulse 84 11/05/20 16:08 Resp 25 H 11/05/20 16:00 BP 116/66 11/05/20 16:00 Pulse Ox 98 11/05/20 15:12 Intake & Output 11/04/20 11/05/20 11/05/20 18:59 06:59 18:59 Intake Total 1901.472 724.103 454 Output Total 874 720 2854 Balance 1251.472 124.103 -831 Weight 102.8 kg 105.1 kg Intake: IV 1389.00 312 254 .9NS Cardiac Output 90 .9NS Pressure bag 102 72 74 Albumin Human 5% 250 ml 500 In Empty Bag 1 bag @ 250 mls/hr IVPB Q1HR PRN Rx#: [id number] Lactated Ringers 1,000 ml 570 240 180 @ 20 mls/hr IV .Q24H [facility] Rx#:[id number] Nitroglycerine 1.5 Primacor 25.50 ceFAZolin 2 gm In Sodium 100 Chloride 0.9% 50 ml @ 100 mls/hr IVPB Q8H [facility] Rx#: [id number] Intake, IV Titration 332.472 12.103 Amount Insulin Regular 100 unit 25.561 12.103 In Sodium Chloride 0.9% 100 ml @ Per Protocol IV .Q0M [facility] Rx#:[id number] Norepinephrine 4 mg In 306.911 Sodium Chloride 0.9% 250 ml @ 0.05 MCG/KG/MIN 19. 01 mls/hr IV .[id number] [facility] Rx#:[id number] Oral 180 400 200 Output: Chest Tube Drainage 395 330 250 Left Chest Tube 305 240 230 Mediastinal Pawel Tube X 2 90 90 20 Urine 224 878 0552 Other: Voiding Method Indwelling Catheter Indwelling Catheter Indwelling Catheter ABP, PAP, CO, CI - Last Documented Arterial Blood Pressure 117/52 Pulmonary Artery Pressure 39/16 Cardiac Output 5.9 Cardiac Index 2.8 - Labs CBC & Chem 7: 11/05/20 04:15 11/05/20 04:15 Labs: Abnormal Lab Results - Last 24 Hours (Table) 11/04/20 11/04/20 11/04/20 Range/Units 16:58 17:53 19:02 RBC (4.30-5.90) m/uL Hgb (13.0-17.5) gm/dL Hct (39.0-53.0) % Plt Count (150-450) k/uL Sodium (137-145) mmol/L BUN (9-20) mg/dL Glucose (74-99) mg/dL POC Glucose (mg/dL) 125 H 171 H 168 H (75-99) mg/dL Total Bilirubin (0.2-1.3) mg/dL Total Protein (6.3-8.2) g/dL Albumin (3.5-5.0) g/dL 11/04/20 11/04/20 11/04/20 Range/Units 20:47 22:05 22:52 RBC (4.30-5.90) m/uL Hgb (13.0-17.5) gm/dL Hct (39.0-53.0) % Plt Count (150-450) k/uL Sodium (137-145) mmol/L BUN (9-20) mg/dL Glucose (74-99) mg/dL POC Glucose (mg/dL) 101 H 112 H 133 H (75-99) mg/dL Total Bilirubin (0.2-1.3) mg/dL Total Protein (6.3-8.2) g/dL Albumin (3.5-5.0) g/dL 11/05/20 11/05/20 11/05/20 Range/Units 00:01 01:20 02:05 RBC (4.30-5.90) m/uL Hgb (13.0-17.5) gm/dL Hct (39.0-53.0) % Plt Count (150-450) k/uL Sodium (137-145) mmol/L BUN (9-20) mg/dL Glucose (74-99) mg/dL POC Glucose (mg/dL) 117 H 111 H 110 H (75-99) mg/dL Total Bilirubin (0.2-1.3) mg/dL Total Protein (6.3-8.2) g/dL Albumin (3.5-5.0) g/dL 11/05/20 11/05/20 11/05/20 Range/Units 04:15 04:15 04:16 RBC 3.19 L (4.30-5.90) m/uL Hgb 10.0 L (13.0-17.5) gm/dL Hct 30.6 L (39.0-53.0) % Plt Count 89 L (150-450) k/uL Sodium 132 L (137-145) mmol/L BUN 28 H (9-20) mg/dL Glucose 108 H (74-99) mg/dL POC Glucose (mg/dL) 115 H (75-99) mg/dL Total Bilirubin 1.7 H (0.2-1.3) mg/dL Total Protein 5.0 L (6.3-8.2) g/dL Albumin 3.1 L (3.5-5.0) g/dL 11/05/20 11/05/20 11/05/20 Range/Units 05:24 06:01 07:11 RBC (4.30-5.90) m/uL Hgb (13.0-17.5) gm/dL Hct (39.0-53.0) % Plt Count (150-450) k/uL Sodium (137-145) mmol/L BUN (9-20) mg/dL Glucose (74-99) mg/dL POC Glucose (mg/dL) 110 H 121 H 106 H (75-99) mg/dL Total Bilirubin (0.2-1.3) mg/dL Total Protein (6.3-8.2) g/dL Albumin (3.5-5.0) g/dL 11/05/20 11/05/20 Range/Units 07:53 11:27 RBC (4.30-5.90) m/uL Hgb (13.0-17.5) gm/dL Hct (39.0-53.0) % Plt Count (150-450) k/uL Sodium (137-145) mmol/L BUN (9-20) mg/dL Glucose (74-99) mg/dL POC Glucose (mg/dL) 150 H 135 H (75-99) mg/dL Total Bilirubin (0.2-1.3) mg/dL Total Protein (6.3-8.2) g/dL Albumin (3.5-5.0) g/dL
[2020-11-05 17:07] LABS: Glucose,Whole Blood 131 mg/dL (75-99)
[2020-11-05] MEDS: SENNOSIDES-DOCUSATE SODIUM 1 EACH TAB PO SCH (19:52)
[2020-11-05 21:13] LABS: Glucose,Whole Blood 122 mg/dL (75-99)
[2020-11-06] MEDS: HEPARIN SODIUM,PORCINE/PF 5,000 UNIT/0.5 ML SYRINGE SQ SCH ×4 (00:11→23:07)
[2020-11-06] MEDS: KETOROLAC 15 MG/ML 1 ML VIAL IVP SCH ×2 (00:11→06:35)
[2020-11-06 04:31] LABS: Basophils % (A) 0 %; Eosinophils # (A) 0.2 k/uL (0-0.7); Eosinophils % (A) 2 %; HCT 29.8 % (39.0-53.0); HGB 10.2 gm/dL (13.0-17.5); Lymphocytes # (A) 1.5 k/uL (1.0-4.8); Lymphocytes % (A) 17 %; MCH 32.6 pg (25.0-35.0); MCHC 34.4 g/dL (31.0-37.0); MCV 94.9 fL (80.0-100.0); Mean Platelet Volume 8.9; Monocytes # (A) 0.6 k/uL (0-1.0); Monocytes % (A) 7 %; Neutrophils # (A) 6.5 k/uL (1.3-7.7); Neutrophils % (A) 73 %; Platelet Count 104 k/uL (150-450); RBC 3.14 m/uL (4.30-5.90); RDW 13.6 % (11.5-15.5); WBC 8.8 k/uL (3.8-10.6)
[2020-11-06 05:52] LABS: ALT 14 U/L (4-49); AST 39 U/L (17-59); African American GFR (CKD) >90 (>60 ml/min/1.73 sqM); Alkaline Phosphatase 57 U/L (38-126); Anion Gap 4 mmol/L; Blood Urea Nitrogen 33 mg/dL (9-20); Calcium 8.3 mg/dL (8.4-10.2); Carbon Dioxide 25 mmol/L (22-30); Chloride 103 mmol/L (98-107); Glucose 108 mg/dL (74-99); Non-African American GFR(CKD) 86 (>60 ml/min/1.73 sqM); Potassium 4.1 mmol/L (3.5-5.1); Sodium 132 mmol/L (137-145); Total Bilirubin 1.6 mg/dL (0.2-1.3); Total Protein 5.2 g/dL (6.3-8.2)
[2020-11-06] MEDS: PANTOPRAZOLE 40 MG TABLET PO SCH (06:36)
[2020-11-06] MEDS: LEVOTHYROXINE 75 MCG TAB PO SCH (06:36)
[2020-11-06 06:47] LABS: Glucose,Whole Blood 120 mg/dL (75-99)
[2020-11-06] MEDS: INSULIN ASPART (NovoLOG) 100 UNIT/ML VIAL SQ SCH ×4 (07:03→23:07)
[2020-11-06] MEDS: IPRATROPIUM-ALBUTEROL 3 ML NEB INHALATION SCH ×4 (07:40→19:47)
[2020-11-06] MEDS ORDERED: FUROSEMIDE 10 MG/ML 4 ML VIAL IV STA (07:43)
--- NOTE | 2020-11-06 07:43 | P.PN ---
Subjective Progress Note Date: 11/06/20 Coronary artery disease status post coronary artery bypass grafting 80-year-old white male patient of Dr. 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 Patient states that every time he is walking his chest pain gets worse, and there is associated increased shortness of breath as well. Denied radiation to his arm, or his neck, no diaphoresis, no palpitations, no recent fever or chills, no cough, no swelling in his bilateral lower extremity's, no nausea vomiting or diarrhea. Patient was also seen by his fire extinguisher tester in the office, and EKG showed atrial fibrillation with no acute changes. X-ray was completed showing borderline cardiomegaly, no heart failure, no significant change compared to old exam. CBC was within normal limits, coagulation profile was within normal limits electrolytes and renal profile were unremarkable, COVID-19 PCR was negative, his first troponin was less than 0.012, second and the third were 0.033 and 0.098. Patient underwent heart catheterization today and was found to have severe triple-vessel disease with a 95% disease involving the LV branch of a dominant RCA, there was a proximal LAD disease, and there was a disease involving the ramus of about 70%, was also made circumflex ostium lesion that was quite sig nificant. Filling pressures were normal. Echocardiogram was completed and mild concentric LVH, mildly impaired left ventricular systolic function with EF of 45-50%, mild MR, mild TR, and right-sided pressures of 47.8 mmHg. Was referred to cardiothoracic surgery for possibility of coronary artery bypass grafting, and we're consulted for pulmonary evaluation, and ICU management On 11/03/2020 patient is seen in the postoperative period in the intensive care unit following three-vessel coronary artery bypass grafting with the AZAR to the LAD, SVG to the OM, and SVG to the PLV, right leg endoscopic vein harvest, and exclusion of the left atrial appendage. Patient is sedated and intubated on assist control mode of ventilation, with a rate of 12, tidal volume is 400, FiO2 of 60% and PEEP of 5. He is on lactated Ringer's at a rate of 50 ML per hour, he is on Diprivan at 20 mics per kilo per minute, Primacor is at 0.375, nitroglycerin drip is at 5 mics per kilo per minute, Levophed is at 7 mics per minute. PA pressure is 30/18, cardiac output was 4.8 and cardiac index was 2.3 patient is currently being paced at DDD mode with a rate of 70, intrinsic rhythm is sinus rhythm with 1st degree AV block, required pacemaker support earlier for slow atrial fibrillation with a rate of 40 BPM. he has a 2 mediastinal left pleural chest tubes with small amount of serous output in the chest tubes, no evidence of air leak, postoperative blood gas and chest x-ray are pending at this time. The patient is seen today 11/04/2020 in follow-up in the intensive care unit. He was successfully extubated around midnight. He is currently sitting up in a chair at the bedside. He is down to 2 L/m per nasal cannula and maintaining O2 saturations in the 90s. Chest x-ray reveals evidence of mediastinal chest tubes 2. Output 390 ML's of serosanguineous fluid. 1 left-sided chest tube in place with 360 ML's of serosanguineous fluid. Patchy air space opacities in the perihilar and bibasilar regions suggestive of atelectasis. No pneumothorax. Nitroglycerin drip is off. He remains on milrinone at 0.2 mcg/kg/m. Norepinephrine at 0.1 mcg/kg/m. He is on insulin drip at 1 unit per hour. Cardiac output 6.8. Cardiac index 3.2. PA pressure 30/12. Blood pressure 108/55. He is currently in his own intrinsic rhythm with sinus rhythm with a first-degree AV block, rate in the 90s. White count 11.8. Hemoglobin 11.1. Platelets 106,000. Sodium 135. Potassium 4.1. Creatinine 0.8. Glucose 128. Albumin 2.9. AST 47. ALT 15. Received albumin this morning. Suraj on bronchodilators. Owing about 3798-8339 ML's on the incentive spirometer. He remains on heparin for DVT prophylaxis. SCDs in place. Protonix for GI prophylaxis. 11/05/2020, patient is postop day #2. Extubated on oxygen by nasal cannula at liters per minute. Chest x-ray showing a very tiny left apical pneumothorax. There are bilateral pleural effusion and atelectatic changes. There is a left- sided chest tube and a mediastinal chest tubes and are still in place. Output from the chest tubes have been in the order of 150 mL on the mediastinal chest tube and 500cc in the left pleural chest tube over the past 24 hours.. His IS approximately 800 mL on incentive spirometer. [place] catheter removed. Hemodynamically stable. Pain is under adequate control. Cardiac rhythm is atrial fibrillation with a controlled rate. Neurologically stable. Awake and alert. Following commands. Moving all 4 extremities without any limitation. No signs of any respiratory distress. He is currently on aspirin. 11/06/2020 the patient is postop day #3, still on 2 L of oxygen by nasal cannula, and he was transitioned to room air oxygen. The patient is calm and comfortable sitting up on a chair. Using incentive spirometer, pulling approximately 1000 on his mediastinal chest tubes have been removed. The patient still has a left pleural chest tube which is draining approximately 50 mL over the past 8 hours. No evidence of any pneumothorax. Chest x-ray showing some atelectatic changes in lung bases and small pleural effusions. The patient is on no pressors. He received a dose of Lasix yesterday. Urine output is adequate. Tolerating diet. Still in atrial fibrillation. Rate is controlled. A Lyme still in place and has right upper extremity. Hemoglobin today is at 10.0. Objective - Vital Signs Vital signs: Vital Signs Temp 99 F 11/06/20 04:00 Pulse 84 11/06/20 07:00 Resp 16 11/06/20 07:00 BP 125/69 11/06/20 07:00 Pulse Ox 95 11/06/20 07:00 Intake & Output 11/05/20 11/06/20 11/06/20 18:59 06:59 18:59 Intake Total 726 712 26 Output Total 1377 413 40 Balance -651 299 -14 Weight 105.4 kg Intake: IV 306 312 26 .9NS Pressure bag 86 72 6 Lactated Ringers 1,000 ml 220 240 20 @ 20 mls/hr IV .Q24H [facility] Rx#:[id number] Oral 420 400 Output: Chest Tube Drainage 250 100 0 Left Chest Tube 230 100 0 Mediastinal Pawel Tube X 2 20 Urine 1127 313 40 Other: Voiding Method Indwelling Catheter Indwelling Catheter ABP, PAP, CO, CI - Last Documented Arterial Blood Pressure 129/57 Pulmonary Artery Pressure 39/16 Cardiac Output 5.9 Cardiac Index 2.8 - Exam - Exam GENERAL EXAM: Alert, very pleasant 80-year-old gentleman up in a chair at the bedside. On RA, comfortable in no apparent distress. HEAD: Normocephalic. EYES: Normal reaction of pupils, equal size. NOSE: Clear with pink turbinates. THROAT: No erythema or exudates. NECK: Right IJ [place]na catheter in place No masses, no JVD. CHEST: Surgical dressing dry and intact. Heart Hugger in place. Mediastinal and chest tubes in place to wall suction. No air leaks. AV pacer wires present, grounded. LUNGS: Equal air entry with faint crackles in the bilateral posterior bases. CVS: S1 and S2 normal with no audible murmur, irregular rhythm. ABDOMEN: No hepatosplenomegaly, normal bowel sounds, no guarding or rigidity. SPINE: No scoliosis or deformity SKIN: No rashes CENTRAL NERVOUS SYSTEM: No focal deficits, tone is normal in all 4 extremities. EXTREMITIES: Right radial arterial line in place There is trace peripheral edema. No clubbing, no cyanosis. Peripheral pulses are intact. - Labs CBC & Chem 7: 11/06/20 04:12 11/06/20 04:12 Labs: Abnormal Lab Results - Last 24 Hours (Table) 11/05/20 11/05/20 11/05/20 Range/Units 07:53 11:27 17:06 RBC (4.30-5.90) m/uL Hgb (13.0-17.5) gm/dL Hct (39.0-53.0) % Plt Count (150-450) k/uL Sodium (137-145) mmol/L BUN (9-20) mg/dL Glucose (74-99) mg/dL POC Glucose (mg/dL) 150 H 135 H 131 H (75-99) mg/dL Calcium (8.4-10.2) mg/dL Total Bilirubin (0.2-1.3) mg/dL Total Protein (6.3-8.2) g/dL Albumin (3.5-5.0) g/dL 11/05/20 11/06/20 11/06/20 Range/Units 21:12 04:12 04:12 RBC 3.14 L (4.30-5.90) m/uL Hgb 10.2 L (13.0-17.5) gm/dL Hct 29.8 L (39.0-53.0) % Plt Count 104 L (150-450) k/uL Sodium 132 L (137-145) mmol/L BUN 33 H (9-20) mg/dL Glucose 108 H (74-99) mg/dL POC Glucose (mg/dL) 122 H (75-99) mg/dL Calcium 8.3 L (8.4-10.2) mg/dL Total Bilirubin 1.6 H (0.2-1.3) mg/dL Total Protein 5.2 L (6.3-8.2) g/dL Albumin 3.0 L (3.5-5.0) g/dL 11/06/20 Range/Units 06:45 RBC (4.30-5.90) m/uL Hgb (13.0-17.5) gm/dL Hct (39.0-53.0) % Plt Count (150-450) k/uL Sodium (137-145) mmol/L BUN (9-20) mg/dL Glucose (74-99) mg/dL POC Glucose (mg/dL) 120 H (75-99) mg/dL Calcium (8.4-10.2) mg/dL Total Bilirubin (0.2-1.3) mg/dL Total Protein (6.3-8.2) g/dL Albumin (3.5-5.0) g/dL Assessment and Plan Plan: 1 Symptomatic multivessel coronary artery disease, status post three-vessel coronary artery bypass grafting with AZAR to the LAD, and SVG to the OM and PLV, left atrial appendage exclusion, postoperative day #3 2 Routine postoperative ventilator management, extubated at 00:06 this morning 11/04/2020, currently RA has some small effusions and atelectatic changes in lung bases bilaterally 3 Coronary artery disease with previous PCI 4 Hypertension 5 Chronic A. fib, sinus rhythm, the patient went back in A fibrillation with a controlled rate for now. 6 Remote and brief history of smoking 7 Congenital malformation of the sternal bone, and patient has a chronic indentation of the sternum, pectus excavatum 8 Obstructive sleep apnea 9 Hypothyroidism 10 Hyperactive bladder 11 History of prostate cancer with seed implants in 2002 12 Osteoarthritis 13 Previous history of myocardial infarction 14 Daily use of cannabis Plan: Another 40 mg IV 1 of Lasix Metoprolol 12.5 mg by mouth twice a day Continue aspirin Consider initiating this patient on long-term and to coagulation with Eliquis Possibly remove the left chest tubes Continue using incentive spirometer Condition is otherwise stable. No other issues for now. Ongoing recovery.
--- NOTE | 2020-11-06 07:43 | XR ---
EXAMINATION TYPE: XR chest 1V portable DATE OF EXAM: 11/06/2020 COMPARISON: Chest x-ray 11/05/2020 HISTORY: Postop coronary artery bypass graft, chest tube TECHNIQUE: Single frontal view of the chest is obtained. FINDINGS: Left-sided chest tube remains in place. No sizable pneumothorax. Patient is post median st ernotomy and left atrial appendage clip placement. Median sternal drains have been removed. Heart rem ains enlarged. Right jugular central venous sheath is in place. Bibasilar density is improved. IMPRESSION: Some improvement in aeration at the lung bases.
[2020-11-06] MEDS: METOPROLOL TARTRATE 12.5 MG TAB PO SCH (08:48)
[2020-11-06] MEDS: ASPIRIN 325 MG TAB PO SCH (08:48)
[2020-11-06] MEDS: MUPIROCIN 2% OINT 22 GM TUBE NASAL SCH ×2 (08:50→21:30)
[2020-11-06] MEDS: CLOPIDOGREL 75 MG TAB PO SCH (08:50)
[2020-11-06] MEDS: ATORVASTATIN 40 MG TAB PO SCH (08:50)
[2020-11-06] MEDS: FOLIC ACID 1 MG TAB PO SCH (08:50)
[2020-11-06] MEDS: THIAMINE 100 MG TAB PO SCH (08:51)
--- NOTE | 2020-11-06 09:32 | P.PN ---
Subjective Progress Note Date: 11/06/20 Principal diagnosis: Symptomatic multivessel coronary artery disease, non-STEMI this admission. 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 POD #3 coronary bypass grafting 3 vessels, left internal mammary artery to the left anterior descending artery, reverse saphenous vein graft to the obtuse marginal artery, reverse saphenous vein graft to posterior lateral branch of the right coronary artery, endoscopic harvesting of the right greater saphenous vein, ligation of the left atrial appendage using a 35 mm AtriClip, epi-aortic ultrasound and intraoperative transesophageal echocardiogram. Postoperative acute blood loss anemia and thrombocytopenia, expected given hemodilution and cardiopulmonary bypass pump. The patient was seen in follow-up today 11/06/2020 at his bedside in the intensive care unit. Currently he is sitting up to the bedside chair, is awake, alert and oriented 3 and is in no acute distress. He denies any complaints of shortness of breath , and is complaining surgical type pain to his chest tube insertion site rating his pain 3 out of 10 on the pain scale. He is on room air with oxygen saturations 95% and he is achieving 1000 mL on his incentive spirometry with much encouragement. Bedside monitor is showing atrial fibrillation with heart rate 89 BPM. He was started on metoprolol tartrate 12.5 mg by mouth twice a day yesterday 11/05/2020. He remains hemodynamically stable and is currently on no inotropic or pressor support. Right IJ cordis remains in place with continuous CVP monitoring, current CVP pressure of 16 mmHg. Mediastinal chest tubes were discontinued yesterday without incident. Left pleural chest tube remain in place to low continuous wall suction -20 cm H2O. No air leak is present. Left pleural chest tube is draining thin serosanguineous drainage with 50 mL output in the last 8 hours and 380 mL output in the last 24 hours. He remains afebrile the last 24 hours. Bedside nurse reports he has been up ambulating in the intensive care unit hallway with minimal assistance from nursing staff. Objective - Vital Signs Vital signs: Vital Signs Temp 99 F 11/06/20 04:00 Pulse 89 11/06/20 08:00 Resp 22 11/06/20 08:00 BP 121/74 11/06/20 08:00 Pulse Ox 95 11/06/20 08:00 Intake & Output 11/05/20 11/06/20 11/06/20 18:59 06:59 18:59 Intake Total 726 712 52 Output Total 1377 413 70 Balance -651 299 -18 Weight 105.4 kg Intake: IV 306 312 52 .9NS Pressure bag 86 72 12 Lactated Ringers 1,000 ml 220 240 40 @ 20 mls/hr IV .Q24H [facility] Rx#:[id number] Oral 420 400 Output: Chest Tube Drainage 250 100 0 Left Chest Tube 230 100 0 Mediastinal Pawel Tube X 2 20 Urine 1127 313 70 Other: Voiding Method Indwelling Catheter Indwelling Catheter ABP, PAP, CO, CI - Last Documented Arterial Blood Pressure 116/49 Pulmonary Artery Pressure 39/16 Cardiac Output 5.9 Cardiac Index 2.8 - Exam CONSTITUTIONAL: Sitting up to the bedside chair in the intensive care unit, appears comfortable, cooperative, no apparent acute distress. HEENT: Neck is supple, no JVD, no lymphadenopathy. RESPIRATORY: Lungs sounds essentially clear throughout, diminished to his bilateral bases. Respirations are symmetrical and nonlabored. Currently on room air with oxygen saturations 95%. Able to achieve 1000 mL on his incentive spirometry. Strong cough. CARDIOVASCULAR: Irregular rhythm and controlled rate. S1 and S2 present, negative for S3, gallop or murmur. Sternum is stable. Remote telemetry showing atrial fibrillation heart rate 89 BPM. Palpable peripheral pulses bilaterally, No calf pain or tenderness noted. Heart hugger in place with patient demonstrating appropriate use. Knee-high MARGO hose and sequential compression devices in place to his bilateral lower extremities. GASTROINTESTINAL: Abdomen soft, nontender, nondistended. Active bowel sounds present 4 quadrants. Tolerating diet. Passing flatus. No guarding or rigidity. Bowel movement yesterday 11/05/2020. GENITOURINARY: Granados present draining clear, yellow urine. Output 300 mL in the last 8 hours INTEGUMENTARY: Skin is warm and dry with evidence of good perfusion. Midline sternal incision clean dry and well approximated, covered with dry intact dressing. Right lower extremity EVH site well approximated without redness or drainage. No drainage or redness is present. NEUROLOGIC: Cranial nerves II through XII intact. No focal deficits. MUSKULOSKELETAL: Able to move all extremities, strength equal bilaterally, generalized weakness. PSYCHIATRIC: Alert and oriented to person place and time, appropriate affect, intact judgment and insight. INVASIVE LINES AND TUBES: Left pleural chest tube present and connected to low continuous wall suction, no air leaks present. Left pleural chest tube with 50 mL of thin serosanguineous drainage overnight, 380 mL out in the last 24 hours . Atrial and ventricular epicardial pacemaker wirin place and grounded . - Labs CBC & Chem 7: 11/06/20 04:12 11/06/20 04:12 Labs: Abnormal Lab Results - Last 24 Hours (Table) 11/05/20 11/05/20 11/05/20 Range/Units 11:27 17:06 21:12 RBC (4.30-5.90) m/uL Hgb (13.0-17.5) gm/dL Hct (39.0-53.0) % Plt Count (150-450) k/uL Sodium (137-145) mmol/L BUN (9-20) mg/dL Glucose (74-99) mg/dL POC Glucose (mg/dL) 135 H 131 H 122 H (75-99) mg/dL Calcium (8.4-10.2) mg/dL Total Bilirubin (0.2-1.3) mg/dL Total Protein (6.3-8.2) g/dL Albumin (3.5-5.0) g/dL 11/06/20 11/06/20 11/06/20 Range/Units 04:12 04:12 06:45 RBC 3.14 L (4.30-5.90) m/uL Hgb 10.2 L (13.0-17.5) gm/dL Hct 29.8 L (39.0-53.0) % Plt Count 104 L (150-450) k/uL Sodium 132 L (137-145) mmol/L BUN 33 H (9-20) mg/dL Glucose 108 H (74-99) mg/dL POC Glucose (mg/dL) 120 H (75-99) mg/dL Calcium 8.3 L (8.4-10.2) mg/dL Total Bilirubin 1.6 H (0.2-1.3) mg/dL Total Protein 5.2 L (6.3-8.2) g/dL Albumin 3.0 L (3.5-5.0) g/dL Assessment and Plan Assessment: 1. Symptomatic multivessel coronary artery disease, non-STEMI this admission, status post three-vessel CABG 2. History of CAD with prior stenting 15 years ago 3. Hypertension, resolved 4. Hyperlipidemia, cholesterol 216, LDL 136 on admission 5. Chronic paroxysmal atrial fibrillation with refusal of anticoagulation, status post left atrial appendage ligation 6. Hypothyroidism 7. Obstructive sleep apnea with home CPAP use 8. Prostate cancer with radiation seed treatment and subsequent bladder and bowel incontinence 9. Diverticulosis 10. Left leg cellulitis in April 2021 11. 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 Previous tobacco dependence 13. Daily wine consumption 14. Nightly cannabis use 14. Postoperative acute blood loss anemia and thrombocytopenia, expected Plan: 1. Continue aspirin, statin, Plavix. Patient has refused statin in the past due to significant myalgias and weakness. 2. Metoprolol tartrate increased to 25 mg mg by mouth twice a day. 3. Wean O2 as tolerated. Encourage incentive spirometry 10 times every hour while awake. Bronchodilators per pulmonology. 4. Increase activity, ambulate as tolerated. PT/OT/cardiac rehab following. 5. Will monitor daily labs and chest x-rays. Electrolyte replacement per protocol. 6. GI/DVT prophylaxis. 7. Pain controlled current medication regimen. Toradol discontinued due to his BUN trending up. 8. Insulin management per primary care service. Patient is not diabetic, preoperative hemoglobin A1c 5.2% 9. Keep his left pleural chest tubes in place to low continuous wall suction. 10. Remove radial arterial line. 11. Discontinue Granados catheter, continue to record strict accurate intake and output. Daily weights. 12. Lasix 40 mg IV 1 now. 13. Transfer to third floor cardiac stepdown unit. 14. Keep atrial and ventricular epicardial pacemaker wires in place and grounded. 15. More recommendations to follow based on patient's clinical course. Time with Patient: Greater than 30
[2020-11-06] MEDS: TAMSULOSIN 0.4 MG CAP.ER.24H PO SCH (10:37)
[2020-11-06] MEDS: BENZOCAINE/MENTHOL LOZENG 1 EACH LOZENGE MUCOUS MEM PRN (10:38)
[2020-11-06 11:55] LABS: Glucose,Whole Blood 115 mg/dL (75-99)
--- NOTE | 2020-11-06 13:12 | P.PN ---
Subjective Progress Note Date: 11/06/20 No new complaints today. 2nd mediastinal tube removed. Cordis, A-line removed. UOP is good. Calderon in place. Objective - Vital Signs Vital signs: Vital Signs Temp 99 F 11/06/20 04:00 Pulse 82 11/06/20 12:31 Resp 14 11/06/20 09:39 BP 116/68 11/06/20 09:00 Pulse Ox 95 11/06/20 09:39 Intake & Output 11/05/20 11/06/20 11/06/20 18:59 06:59 18:59 Intake Total 726 712 78 Output Total 1377 413 820 Balance -651 299 -742 Weight 105.4 kg Intake: IV 306 312 78 .9NS Pressure bag 86 72 18 Lactated Ringers 1,000 ml 220 240 60 @ 20 mls/hr IV .Q24H [facility] Rx#:[id number] Oral 420 400 Output: Chest Tube Drainage 250 100 60 Left Chest Tube 230 100 60 Mediastinal Pawel Tube X 2 20 Urine 1127 313 760 Other: Voiding Method Indwelling Catheter Indwelling Catheter Indwelling Catheter ABP, PAP, CO, CI - Last Documented Arterial Blood Pressure 109/49 Pulmonary Artery Pressure 39/16 Cardiac Output 5.9 Cardiac Index 2.8 - Exam Gen: awake, alert HEENT: normocephalic, atraumatic, good hearing acuity, moist mucous membranes Resp: breathing comfortably without accessory muscle use, adequate chest expansion CVS: good distal perfusion x 4, regular rate and rhythm GI: soft, NTTP, ND : no SPT, no CVAT, calderon catheter is present MSK: Trace to 1+ pitting edema, no clubbing Neuro: non-focal, moving all extremities Lines: Peripheral IV, calderon, Left pleural chest tube - Labs CBC & Chem 7: 11/06/20 04:12 11/06/20 04:12 Labs: Abnormal Lab Results - Last 24 Hours (Table) 11/05/20 11/05/20 11/06/20 Range/Units 17:06 21:12 04:12 RBC 3.14 L (4.30-5.90) m/uL Hgb 10.2 L (13.0-17.5) gm/dL Hct 29.8 L (39.0-53.0) % Plt Count 104 L (150-450) k/uL Sodium (137-145) mmol/L BUN (9-20) mg/dL Glucose (74-99) mg/dL POC Glucose (mg/dL) 131 H 122 H (75-99) mg/dL Calcium (8.4-10.2) mg/dL Total Bilirubin (0.2-1.3) mg/dL Total Protein (6.3-8.2) g/dL Albumin (3.5-5.0) g/dL 11/06/20 11/06/20 11/06/20 Range/Units 04:12 06:45 11:54 RBC (4.30-5.90) m/uL Hgb (13.0-17.5) gm/dL Hct (39.0-53.0) % Plt Count (150-450) k/uL Sodium 132 L (137-145) mmol/L BUN 33 H (9-20) mg/dL Glucose 108 H (74-99) mg/dL POC Glucose (mg/dL) 120 H 115 H (75-99) mg/dL Calcium 8.3 L (8.4-10.2) mg/dL Total Bilirubin 1.6 H (0.2-1.3) mg/dL Total Protein 5.2 L (6.3-8.2) g/dL Albumin 3.0 L (3.5-5.0) g/dL Assessment and Plan Assessment: NSTEMI Status post CABG -Continue with aspirin, Plavix, statin -Cardiology consult -CT surgery following -Cardiac monitoring -Nitroglycerin drip, d/c'd, levophed drip, d/c'd, Milrinone drip, d/c'd -IVF + albumin for BP; rec'd lasix 11/05 and 11/06 -Echocardiogram, EF 45-50% -Lines: 1 x left pleural chest tube, calderon Afib, newly diagnosed, paroxysmal, currently in sinus with 1st degree AVB -Heparin discontinued perioperatively -CT surgery to determine when it's appropriate to restart vs start NOAC Hypothyroidism -Continue home levothyroxine dose DVT prophylaxis -Heparin TID The patient is admitted with an anticipated less than 2 midnight stay for evaluation of NSTEMI CODE STATUS: Full Code Discussed with: Patient Anticipated discharge date: TBD Anticipated discharge place: Home
[2020-11-06 16:22] LABS: Glucose,Whole Blood 131 mg/dL (75-99)
[2020-11-06 21:15] LABS: Glucose,Whole Blood 110 mg/dL (75-99)
[2020-11-06] MEDS: METOPROLOL TARTRATE 25 MG TAB PO SCH (21:29)
[2020-11-06] MEDS: SENNOSIDES-DOCUSATE SODIUM 1 EACH TAB PO SCH (21:29)
[2020-11-07] MEDS: PANTOPRAZOLE 40 MG TABLET PO SCH (06:35)
[2020-11-07] MEDS: BENZOCAINE/MENTHOL LOZENG 1 EACH LOZENGE MUCOUS MEM PRN ×2 (06:35→20:22)
[2020-11-07] MEDS: LEVOTHYROXINE 75 MCG TAB PO SCH (06:35)
[2020-11-07 06:58] LABS: Glucose,Whole Blood 114 mg/dL (75-99)
[2020-11-07] MEDS: INSULIN ASPART (NovoLOG) 100 UNIT/ML VIAL SQ SCH ×4 (07:24→22:51)
[2020-11-07 07:35] LABS: HCT 30.8 % (39.0-53.0); HGB 10.7 gm/dL (13.0-17.5); MCH 33.1 pg (25.0-35.0); MCHC 34.6 g/dL (31.0-37.0); MCV 95.7 fL (80.0-100.0); Mean Platelet Volume 8.8; Platelet Count 141 k/uL (150-450); RBC 3.22 m/uL (4.30-5.90); RDW 13.6 % (11.5-15.5); WBC 9.8 k/uL (3.8-10.6)
--- NOTE | 2020-11-07 07:42 | XR ---
EXAMINATION TYPE: XR chest 1V portable DATE OF EXAM: 11/07/2020 COMPARISON: Chest x-ray 11/06/2020 HISTORY: Postop coronary artery bypass graft, chest tube TECHNIQUE: Single frontal view of the chest is obtained. FINDINGS: There is minimal apical left pneumothorax. Blunting the costophrenic angles is present, le ft-sided chest tube remains in place, there is patchy bibasilar increased density. Cardiac mediastina l silhouette shows a stable appearance, patient is post median sternotomy and left atrial appendage c lip placement. There are overlying leads. IMPRESSION: Satisfactory postoperative chest x-ray, basilar atelectasis, that may be minimal effusio ns, there is a minimal left apical pneumothorax
[2020-11-07 07:44] LABS: African American GFR (CKD) >90 (>60 ml/min/1.73 sqM); Anion Gap 4 mmol/L; Blood Urea Nitrogen 28 mg/dL (9-20); Carbon Dioxide 28 mmol/L (22-30); Chloride 102 mmol/L (98-107); Glucose 106 mg/dL (74-99); Non-African American GFR(CKD) 83 (>60 ml/min/1.73 sqM); Potassium 4.1 mmol/L (3.5-5.1); Sodium 134 mmol/L (137-145)
[2020-11-07] MEDS: IPRATROPIUM-ALBUTEROL 3 ML NEB INHALATION SCH ×4 (07:53→19:22)
--- NOTE | 2020-11-07 09:26 | P.PN ---
Subjective Progress Note Date: 11/07/20 Coronary artery disease status post coronary artery bypass grafting 80-year-old white male patient of Dr. 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 Patient states that every time he is walking his chest pain gets worse, and there is associated increased shortness of breath as well. Denied radiation to his arm, or his neck, no diaphoresis, no palpitations, no recent fever or chills, no cough, no swelling in his bilateral lower extremity's, no nausea vomiting or diarrhea. Patient was also seen by his child welfare director in the office, and EKG showed atrial fibrillation with no acute changes. X-ray was completed showing borderline cardiomegaly, no heart failure, no significant change compared to old exam. CBC was within normal limits, coagulation profile was within normal limits electrolytes and renal profile were unremarkable, COVID-19 PCR was negative, his first troponin was less than 0.012, second and the third were 0.033 and 0.098. Patient underwent heart catheterization today and was found to have severe triple-vessel disease with a 95% disease involving the LV branch of a dominant RCA, there was a proximal LAD disease, and there was a disease involving the ramus of about 70%, was also made circumflex ostium lesion that was quite sig nificant. Filling pressures were normal. Echocardiogram was completed and mild concentric LVH, mildly impaired left ventricular systolic function with EF of 45-50%, mild MR, mild TR, and right-sided pressures of 47.8 mmHg. Was referred to cardiothoracic surgery for possibility of coronary artery bypass grafting, and we're consulted for pulmonary evaluation, and ICU management On 11/03/2020 patient is seen in the postoperative period in the intensive care unit following three-vessel coronary artery bypass grafting with the AZAR to the LAD, SVG to the OM, and SVG to the PLV, right leg endoscopic vein harvest, and exclusion of the left atrial appendage. Patient is sedated and intubated on assist control mode of ventilation, with a rate of 12, tidal volume is 400, FiO2 of 60% and PEEP of 5. He is on lactated Ringer's at a rate of 50 ML per hour, he is on Diprivan at 20 mics per kilo per minute, Primacor is at 0.375, nitroglycerin drip is at 5 mics per kilo per minute, Levophed is at 7 mics per minute. PA pressure is 30/18, cardiac output was 4.8 and cardiac index was 2.3 patient is currently being paced at DDD mode with a rate of 70, intrinsic rhythm is sinus rhythm with 1st degree AV block, required pacemaker support earlier for slow atrial fibrillation with a rate of 40 BPM. he has a 2 mediastinal left pleural chest tubes with small amount of serous output in the chest tubes, no evidence of air leak, postoperative blood gas and chest x-ray are pending at this time. The patient is seen today 11/04/2020 in follow-up in the intensive care unit. He was successfully extubated around midnight. He is currently sitting up in a chair at the bedside. He is down to 2 L/m per nasal cannula and maintaining O2 saturations in the 90s. Chest x-ray reveals evidence of mediastinal chest tubes 2. Output 390 ML's of serosanguineous fluid. 1 left-sided chest tube in place with 360 ML's of serosanguineous fluid. Patchy air space opacities in the perihilar and bibasilar regions suggestive of atelectasis. No pneumothorax. Nitroglycerin drip is off. He remains on milrinone at 0.2 mcg/kg/m. Norepinephrine at 0.1 mcg/kg/m. He is on insulin drip at 1 unit per hour. Cardiac output 6.8. Cardiac index 3.2. PA pressure 30/12. Blood pressure 108/55. He is currently in his own intrinsic rhythm with sinus rhythm with a first-degree AV block, rate in the 90s. White count 11.8. Hemoglobin 11.1. Platelets 106,000. Sodium 135. Potassium 4.1. Creatinine 0.8. Glucose 128. Albumin 2.9. AST 47. ALT 15. Received albumin this morning. Suraj on bronchodilators. Owing about 5490-5097 ML's on the incentive spirometer. He remains on heparin for DVT prophylaxis. SCDs in place. Protonix for GI prophylaxis. 11/05/2020, patient is postop day #2. Extubated on oxygen by nasal cannula at liters per minute. Chest x-ray showing a very tiny left apical pneumothorax. There are bilateral pleural effusion and atelectatic changes. There is a left- sided chest tube and a mediastinal chest tubes and are still in place. Output from the chest tubes have been in the order of 150 mL on the mediastinal chest tube and 500cc in the left pleural chest tube over the past 24 hours.. His IS approximately 800 mL on incentive spirometer. Baker-Edna catheter removed. Hemodynamically stable. Pain is under adequate control. Cardiac rhythm is atrial fibrillation with a controlled rate. Neurologically stable. Awake and alert. Following commands. Moving all 4 extremities without any limitation. No signs of any respiratory distress. He is currently on aspirin. 11/06/2020 the patient is postop day #3, still on 2 L of oxygen by nasal cannula, and he was transitioned to room air oxygen. The patient is calm and comfortable sitting up on a chair. Using incentive spirometer, pulling approximately 1000 on his mediastinal chest tubes have been removed. The patient still has a left pleural chest tube which is draining approximately 50 mL over the past 8 hours. No evidence of any pneumothorax. Chest x-ray showing some atelectatic changes in lung bases and small pleural effusions. The patient is on no pressors. He received a dose of Lasix yesterday. Urine output is adequate. Tolerating diet. Still in atrial fibrillation. Rate is controlled. Hemoglobin today is at 10.0. 11/07/2020, the patient is sitting up on a chair and patient is currently on room air oxygen. No respiratory difficulties. Sternal wound is dry clean and intact. Left pleural chest tube still in place. Output from the pleural chest tube has been around 190 mL since 8 AM this morning. No evidence of any air leak. Chest x-ray from today is showing minimal effusion and left lung and a minimal left apical pneumothorax. Otherwise, the patient has a hemoglobin of 10.7, I's and O within normal limits. No other significant events overnight. He is using incentive spirometer for now. He remains in atrial fibrillation. He has declined anticoagulation the past. Objective - Vital Signs Vital signs: Vital Signs Temp 98.2 F 11/07/20 04:00 Pulse 96 11/07/20 08:10 Resp 18 11/07/20 04:00 BP 119/63 11/07/20 04:00 Pulse Ox 98 11/07/20 04:00 Intake & Output 11/06/20 11/07/20 11/07/20 18:59 06:59 18:59 Intake Total 818 360 Output Total 1140 385 200 Balance -322 -385 160 Weight 104.9 kg Intake: IV 78 .9NS Pressure bag 18 Lactated Ringers 1,000 ml 60 @ 20 mls/hr IV .Q24H [facility] Rx#:[id number] Oral 740 360 Output: Chest Tube Drainage 80 110 Left Chest Tube 80 110 Urine 1060 275 200 Other: Voiding Method Indwelling Catheter Urinal # Voids 1 1 # Bowel Movements 0 ABP, PAP, CO, CI - Last Documented Arterial Blood Pressure 109/49 Pulmonary Artery Pressure 39/16 Cardiac Output 5.9 Cardiac Index 2.8 - Exam - Exam GENERAL EXAM: Alert, very pleasant 80-year-old gentleman up in a chair at the bedside. On RA, comfortable in no apparent distress. HEAD: Normocephalic. EYES: Normal reaction of pupils, equal size. NOSE: Clear with pink turbinates. THROAT: No erythema or exudates. NECK: Right IJ Baker-Edna catheter in place No masses, no JVD. CHEST: Surgical dressing dry and intact. Heart Hugger in place. Mediastinal and chest tubes in place to wall suction. No air leaks. AV pacer wires present, grounded. LUNGS: Equal air entry with faint crackles in the bilateral posterior bases. CVS: S1 and S2 normal with no audible murmur, irregular rhythm. ABDOMEN: No hepatosplenomegaly, normal bowel sounds, no guarding or rigidity. SPINE: No scoliosis or deformity SKIN: No rashes CENTRAL NERVOUS SYSTEM: No focal deficits, tone is normal in all 4 extremities. EXTREMITIES: Right radial arterial line in place There is trace peripheral edema. No clubbing, no cyanosis. Peripheral pulses are intact. - Labs CBC & Chem 7: 11/07/20 07:15 11/07/20 07:15 Labs: Abnormal Lab Results - Last 24 Hours (Table) 11/06/20 11/06/20 11/06/20 Range/Units 11:54 16:21 21:12 RBC (4.30-5.90) m/uL Hgb (13.0-17.5) gm/dL Hct (39.0-53.0) % Plt Count (150-450) k/uL Sodium (137-145) mmol/L BUN (9-20) mg/dL Glucose (74-99) mg/dL POC Glucose (mg/dL) 115 H 131 H 110 H (75-99) mg/dL Calcium (8.4-10.2) mg/dL 11/07/20 11/07/20 11/07/20 Range/Units 06:10 07:15 07:15 RBC 3.22 L (4.30-5.90) m/uL Hgb 10.7 L (13.0-17.5) gm/dL Hct 30.8 L (39.0-53.0) % Plt Count 141 L (150-450) k/uL Sodium 134 L (137-145) mmol/L BUN 28 H (9-20) mg/dL Glucose 106 H (74-99) mg/dL POC Glucose (mg/dL) 114 H (75-99) mg/dL Calcium 8.0 L (8.4-10.2) mg/dL Assessment and Plan Plan: 1 Symptomatic multivessel coronary artery disease, status post three-vessel coronary artery bypass grafting with AZAR to the LAD, and SVG to the OM and PLV, left atrial appendage exclusion, postoperative day #4 2 Routine postoperative ventilator management, extubated at 00:06 this morning 11/04/2020, currently RA has some small effusions and atelectatic changes in lung bases bilaterally 3 Coronary artery disease with previous PCI 4 Hypertension 5 Chronic A. fib, sinus rhythm, the patient went back in A fibrillation with a controlled rate for now. 6 Remote and brief history of smoking 7 Congenital malformation of the sternal bone, and patient has a chronic indentation of the sternum, pectus excavatum 8 Obstructive sleep apnea 9 Hypothyroidism 10 Hyperactive bladder 11 History of prostate cancer with seed implants in 2002 12 Osteoarthritis 13 Previous history of myocardial infarction 14 Daily use of cannabis Plan: Metoprolol 25 mg by mouth twice a day Continue aspirin Possibly remove the left chest tuben, largely depends on the output Continue using incentive spirometer Increase mobility Condition is otherwise stable. No other issues for now.
[2020-11-07] MEDS: TAMSULOSIN 0.4 MG CAP.ER.24H PO SCH (09:36)
[2020-11-07] MEDS: METOPROLOL TARTRATE 25 MG TAB PO SCH (09:37)
[2020-11-07] MEDS: CLOPIDOGREL 75 MG TAB PO SCH (09:37)
[2020-11-07] MEDS: THIAMINE 100 MG TAB PO SCH (09:37)
[2020-11-07] MEDS: HEPARIN SODIUM,PORCINE/PF 5,000 UNIT/0.5 ML SYRINGE SQ SCH ×3 (09:37→23:02)
[2020-11-07] MEDS: ASPIRIN 325 MG TAB PO SCH (09:37)
[2020-11-07] MEDS: ATORVASTATIN 40 MG TAB PO SCH (09:37)
[2020-11-07] MEDS: FOLIC ACID 1 MG TAB PO SCH (09:37)
[2020-11-07] MEDS ORDERED: METOPROLOL TARTRATE 25 MG TAB PO STA (09:51)
[2020-11-07] MEDS ORDERED: FUROSEMIDE 10 MG/ML 4 ML VIAL IV STA (09:52)
[2020-11-07] MEDS ORDERED: bisacodyL 10 MG SUPP RECTAL STA (10:22)
[2020-11-07 11:37] LABS: Glucose,Whole Blood 129 mg/dL (75-99)
--- NOTE | 2020-11-07 11:56 | P.PN ---
Subjective Patient is resting comfortably in bed. He still has a chest tube in situ Minimal chest discomfort No shortness of breath Pulse rate in the 80s atrial fibrillation Blood pressure control. 6. His mercury Breath sounds are reduced bilaterally Heart sounds are soft normal S1 normal S2 is regular Impression Multivessel coronary artery disease with crescendo angina Non-Q wave NC Status post coronary artery bypass grafting History of atrial fibrillation prior to coronary at the office grafting Patient has had left atrial appendage. Clipped In the past has refused anticoagulation for atrial fibrillation At this time we'll continue aspirin and Plavix since his appendages on the clipped Continue other cardiac medications Objective - Vital Signs Vital signs: Vital Signs Temp 98.3 F 11/07/20 08:00 Pulse 88 11/07/20 11:46 Resp 16 11/07/20 08:00 BP 112/56 11/07/20 08:00 Pulse Ox 96 11/07/20 08:00 Intake & Output 11/06/20 11/07/20 11/07/20 18:59 06:59 18:59 Intake Total 818 360 Output Total 1140 385 200 Balance -322 -385 160 Weight 104.9 kg Intake: IV 78 .9NS Pressure bag 18 Lactated Ringers 1,000 ml 60 @ 20 mls/hr IV .Q24H [facility] Rx#:[id number] Oral 740 360 Output: Chest Tube Drainage 80 110 Left Chest Tube 80 110 Urine 1060 275 200 Other: Voiding Method Indwelling Catheter Urinal Urinal # Voids 1 1 # Bowel Movements 0 ABP, PAP, CO, CI - Last Documented Arterial Blood Pressure 109/49 Pulmonary Artery Pressure 39/16 Cardiac Output 5.9 Cardiac Index 2.8 - Labs CBC & Chem 7: 11/07/20 07:15 11/07/20 07:15 Labs: Abnormal Lab Results - Last 24 Hours (Table) 11/06/20 11/06/20 11/07/20 Range/Units 16:21 21:12 06:10 RBC (4.30-5.90) m/uL Hgb (13.0-17.5) gm/dL Hct (39.0-53.0) % Plt Count (150-450) k/uL Sodium (137-145) mmol/L BUN (9-20) mg/dL Glucose (74-99) mg/dL POC Glucose (mg/dL) 131 H 110 H 114 H (75-99) mg/dL Calcium (8.4-10.2) mg/dL 11/07/20 11/07/20 11/07/20 Range/Units 07:15 07:15 11:36 RBC 3.22 L (4.30-5.90) m/uL Hgb 10.7 L (13.0-17.5) gm/dL Hct 30.8 L (39.0-53.0) % Plt Count 141 L (150-450) k/uL Sodium 134 L (137-145) mmol/L BUN 28 H (9-20) mg/dL Glucose 106 H (74-99) mg/dL POC Glucose (mg/dL) 129 H (75-99) mg/dL Calcium 8.0 L (8.4-10.2) mg/dL
--- NOTE | 2020-11-07 11:58 | P.PN ---
Subjective Progress Note Date: 11/07/20 Principal diagnosis: Symptomatic multivessel coronary artery disease, non-STEMI this admission. 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 POD #4 coronary bypass grafting 3 vessels, left internal mammary artery to the left anterior descending artery, reverse saphenous vein graft to the obtuse marginal artery, reverse saphenous vein graft to posterior lateral branch of the right coronary artery, endoscopic harvesting of the right greater saphenous vein, ligation of the left atrial appendage using a 35 mm AtriClip, epi-aortic ultrasound and intraoperative transesophageal echocardiogram. Postoperative acute blood loss anemia and thrombocytopenia, expected given hemodilution and cardiopulmonary bypass pump. The patient was seen in follow-up today 11/07/2020 at his bedside on the cardiac stepdown unit. Currently he is sitting up to the bedside chair, is awake, alert and oriented 3 and is in no acute distress. He denies any complaints of shortness of breath or pain at this time. He is on room air with oxygen saturations 98% and he is achieving 1250 mL on his incentive spirometry with much encouragement. Remote telemetry is showing atrial fibrillation with heart rate 80 BPM. Metoprolol tartrate is currently at 25 mg by mouth twice a day. He remains hemodynamically stable and is on no inotropic or pressor support. Left pleural chest tube remains in place to low continuous wall suction -20 cm H2O. No air leak is present. Draining thin serosanguineous drainage with 50 mL output in the last 8 hours and 300 mL output in the last 24 hours. He remains afebrile the last 24 hours. The patient reports he has been up ambulating in the cardiac stepdown unit hallway already this morning and tolerated 3 walks in the intensive care unit hallway yesterday with minimal assistance from nursing and therapy staff. The patient is refusing to take anticoagulation therapy for his atrial fibrillation. Atrial and ventricular epicardial pacemaker wires remained in place and are grounded. Objective - Vital Signs Vital signs: Vital Signs Temp 98.3 F 11/07/20 08:00 Pulse 88 11/07/20 11:46 Resp 16 11/07/20 08:00 BP 112/56 11/07/20 08:00 Pulse Ox 96 11/07/20 08:00 Intake & Output 11/06/20 11/07/20 11/07/20 18:59 06:59 18:59 Intake Total 818 360 Output Total 1140 385 200 Balance -322 -385 160 Weight 104.9 kg Intake: IV 78 .9NS Pressure bag 18 Lactated Ringers 1,000 ml 60 @ 20 mls/hr IV .Q24H [facility] Rx#:[id number] Oral 740 360 Output: Chest Tube Drainage 80 110 Left Chest Tube 80 110 Urine 1060 275 200 Other: Voiding Method Indwelling Catheter Urinal Urinal # Voids 1 1 # Bowel Movements 0 ABP, PAP, CO, CI - Last Documented Arterial Blood Pressure 109/49 Pulmonary Artery Pressure 39/16 Cardiac Output 5.9 Cardiac Index 2.8 - Exam CONSTITUTIONAL: Sitting up to the bedside chair on the cardiac stepdown unit, appears comfortable, cooperative, no apparent acute distress. HEENT: Neck is supple, no JVD, no lymphadenopathy. RESPIRATORY: Lungs sounds with some few scattered expiratory wheezes, diminished to his bilateral bases. Respirations are symmetrical and nonlabored. Currently on room air with oxygen saturations 98. Able to achieve 1250 mL on his incentive spirometry. Strong cough. CARDIOVASCULAR: Irregular rhythm and controlled rate. S1 and S2 present, negative for S3, gallop or murmur. Sternum is stable. Remote telemetry showing atrial fibrillation heart rate 80 BPM. Palpable peripheral pulses bilaterally, No calf pain or tenderness noted. Heart hugger in place with patient demonstrating appropriate use. Knee-high MARGO hose and sequential compression devices in place to his bilateral lower extremities. GASTROINTESTINAL: Abdomen soft, nontender, nondistended. Active bowel sounds present 4 quadrants. Tolerating diet. Passing flatus. No guarding or rigidi ty. Bowel movement yesterday 11/06/2020. GENITOURINARY: Continues to void. Output 275 mL in the last 8 hours. INTEGUMENTARY: Skin is warm and dry with evidence of good perfusion. Midline sternal incision clean dry and well approximated, covered with dry intact dressing. Right lower extremity EVH site well approximated without redness or drainage. No drainage or redness is present. NEUROLOGIC: Cranial nerves II through XII intact. No focal deficits. MUSKULOSKELETAL: Able to move all extremities, strength equal bilaterally, generalized weakness. PSYCHIATRIC: Alert and oriented to person place and time, appropriate affect, intact judgment and insight. INVASIVE LINES AND TUBES: Left pleural chest tube present and connected to low continuous wall suction, no air leaks present. Left pleural chest tube with 50 mL of thin serosanguineous drainage overnight, 300 mL out in the last 24 hours . Atrial and ventricular epicardial pacemaker wirin place and grounded. - Labs CBC & Chem 7: 11/07/20 07:15 11/07/20 07:15 Labs: Abnormal Lab Results - Last 24 Hours (Table) 11/06/20 11/06/20 11/06/20 Range/Units 11:54 16:21 21:12 RBC (4.30-5.90) m/uL Hgb (13.0-17.5) gm/dL Hct (39.0-53.0) % Plt Count (150-450) k/uL Sodium (137-145) mmol/L BUN (9-20) mg/dL Glucose (74-99) mg/dL POC Glucose (mg/dL) 115 H 131 H 110 H (75-99) mg/dL Calcium (8.4-10.2) mg/dL 11/07/20 11/07/20 11/07/20 Range/Units 06:10 07:15 07:15 RBC 3.22 L (4.30-5.90) m/uL Hgb 10.7 L (13.0-17.5) gm/dL Hct 30.8 L (39.0-53.0) % Plt Count 141 L (150-450) k/uL Sodium 134 L (137-145) mmol/L BUN 28 H (9-20) mg/dL Glucose 106 H (74-99) mg/dL POC Glucose (mg/dL) 114 H (75-99) mg/dL Calcium 8.0 L (8.4-10.2) mg/dL 11/07/20 Range/Units 11:36 RBC (4.30-5.90) m/uL Hgb (13.0-17.5) gm/dL Hct (39.0-53.0) % Plt Count (150-450) k/uL Sodium (137-145) mmol/L BUN (9-20) mg/dL Glucose (74-99) mg/dL POC Glucose (mg/dL) 129 H (75-99) mg/dL Calcium (8.4-10.2) mg/dL Assessment and Plan Assessment: 1. Symptomatic multivessel coronary artery disease, non-STEMI this admission, status post three-vessel CABG 2. History of CAD with prior stenting 15 years ago 3. Hypertension, resolved 4. Hyperlipidemia, cholesterol 216, LDL 136 on admission 5. Chronic paroxysmal atrial fibrillation with refusal of anticoagulation, status post left atrial appendage ligation 6. Hypothyroidism 7. Obstructive sleep apnea with home CPAP use 8. Prostate cancer with radiation seed treatment and subsequent bladder and bowel incontinence 9. Diverticulosis 10. Left leg cellulitis in April 2021 11. 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 Previous tobacco dependence 13. Daily wine consumption 14. Nightly cannabis use 14. Postoperative acute blood loss anemia and thrombocytopenia, expected Plan: 1. Continue maximize medical therapy with aspirin, statin, Plavix and beta bc. 2. Metoprolol tartrate increased to 50 mg mg by mouth twice a day. 3. Encourage incentive spirometry 10 times every hour while awake. Bronchodilators per pulmonology. 4. Increase activity, ambulate as tolerated. PT/OT/cardiac rehab following. 5. Will monitor daily labs and chest x-rays. Electrolyte replacement per protocol. 6. GI/DVT prophylaxis. 7. Pain controlled current medication regimen. Herman discontinued. 8. Insulin management per primary care service. Patient is not diabetic, preoperative hemoglobin A1c 5.2% 9. Left pleural chest tube removed without incident. 10. Lasix 40 mg IV 1 now. 11. Continue to record strict accurate intake and output. Daily weights. 12. Anticipate discharge home within the next 24-48 hours with home health care. 13. Keep atrial and ventricular epicardial pacemaker wires in place and grounded. 14. No amiodarone per Dr. Jasso from cardiology for his atrial fibrillation. Maximize beta bc. 15. More recommendations to follow based on patient's clinical course. Time with Patient: Greater than 30
[2020-11-07] MEDS: polyethylene glycoL 3350 17 GM POWD.PACK PO SCH (12:22)
--- NOTE | 2020-11-07 14:20 | P.PN ---
Subjective Progress Note Date: 11/07/20 (delayed charting seen at 1015) Principal diagnosis: chest pain Patient is an 80 yo CM with A fib, GERD, HTN, and HLD who presented with chest pain and shortness of breath. He underwent cardiac cath and was found to ave trippple vessel disease. He underwent 3 vessel bypass on Patient seen and examined at bedside. He was up and walking with physical therapy and had some shortness of breath which resolved with rest, he complains of some chest discomfort with deep breathing. He has not had a bowel movement in 2 days and is feeling constipated and having some straining, he reports he is passing good amount of gas. We discussed increasing his bowel regimen he is in agreement. General: non toxic, no distress, appears younger than stated age Derm: warm, dry Head: atraumatic, normocephalic, symmetric Eyes: EOMI, no lid lag, anicteric sclera Mouth: no lip lesion, mucus membranes moist Cardiovascular: S1S2 reg, no murmur, positive posterior tibial pulse bilateral, Lungs: Decreased breath sounds bilateral bilateral, no rhonchi, no rales , no accessory muscle use, chest tube in place Abdominal: soft, nontender to palpation, no guarding, no appreciable org anomegaly Ext: no gross muscle atrophy, no edema, no contractures Neuro: CN II-XI grossly intact, no focal neuro deficits Psych: Alert, oriented, appropriate affect CAD s/p 3 vessel bypass - Blood sugar improved, continue SSI, Home on nothhing as pre-op A1C 5.2 Constipation -Hold senna -2 black auditory 1 -Start MiraLAX in a.m. Anemia and Thrombocytopenia - stable - follow CBC Paroxysmal atrial fibrillation -patient declines long-term anticoagulation and he is status post left atrial appendage ligation - tele - cardio recs Dyslipidemia -Not chronically on statin therapy secondary to history of severe myalgia Hypothyroidism -Synthroid LING -Continue with CPAP at home Obesity wt BMI 35.2 - structured outpatient weight loss Elevated BP without diagnosis of HTN Objective - Vital Signs Vital signs: Vital Signs Temp 98.3 F 11/07/20 08:00 Pulse 88 11/07/20 11:46 Resp 16 11/07/20 08:00 BP 112/56 11/07/20 08:00 Pulse Ox 96 11/07/20 08:00 Intake & Output 11/06/20 11/07/20 11/07/20 18:59 06:59 18:59 Intake Total 818 480 Output Total 1140 385 350 Balance -322 -385 130 Weight 104.9 kg Intake: IV 78 .9NS Pressure bag 18 Lactated Ringers 1,000 ml 60 @ 20 mls/hr IV .Q24H [facility] Rx#:[id number] Oral 740 480 Output: Chest Tube Drainage 80 110 Left Chest Tube 80 110 Urine 1060 275 350 Other: Voiding Method Indwelling Catheter Urinal Urinal # Voids 1 1 # Bowel Movements 1 ABP, PAP, CO, CI - Last Documented Arterial Blood Pressure 109/49 Pulmonary Artery Pressure 39/16 Cardiac Output 5.9 Cardiac Index 2.8 - Labs CBC & Chem 7: 11/07/20 07:15 11/07/20 07:15 Labs: Abnormal Lab Results - Last 24 Hours (Table) 11/06/20 11/06/20 11/07/20 Range/Units 16:21 21:12 06:10 RBC (4.30-5.90) m/uL Hgb (13.0-17.5) gm/dL Hct (39.0-53.0) % Plt Count (150-450) k/uL Sodium (137-145) mmol/L BUN (9-20) mg/dL Glucose (74-99) mg/dL POC Glucose (mg/dL) 131 H 110 H 114 H (75-99) mg/dL Calcium (8.4-10.2) mg/dL 11/07/20 11/07/20 11/07/20 Range/Units 07:15 07:15 11:36 RBC 3.22 L (4.30-5.90) m/uL Hgb 10.7 L (13.0-17.5) gm/dL Hct 30.8 L (39.0-53.0) % Plt Count 141 L (150-450) k/uL Sodium 134 L (137-145) mmol/L BUN 28 H (9-20) mg/dL Glucose 106 H (74-99) mg/dL POC Glucose (mg/dL) 129 H (75-99) mg/dL Calcium 8.0 L (8.4-10.2) mg/dL
[2020-11-07 16:47] LABS: Glucose,Whole Blood 109 mg/dL (75-99)
[2020-11-07] MEDS: METOPROLOL TARTRATE 50 MG TAB PO SCH (20:22)
[2020-11-07 20:24] LABS: Glucose,Whole Blood 120 mg/dL (75-99)
[2020-11-08] MEDS: BENZOCAINE/MENTHOL LOZENG 1 EACH LOZENGE MUCOUS MEM PRN (04:44)
[2020-11-08 06:12] LABS: Glucose,Whole Blood 105 mg/dL (75-99)
[2020-11-08] MEDS: INSULIN ASPART (NovoLOG) 100 UNIT/ML VIAL SQ SCH ×2 (06:13→11:44)
[2020-11-08] MEDS: PANTOPRAZOLE 40 MG TABLET PO SCH (06:13)
[2020-11-08] MEDS: LEVOTHYROXINE 75 MCG TAB PO SCH (06:13)
[2020-11-08 07:35] LABS: HCT 32.3 % (39.0-53.0); HGB 10.4 gm/dL (13.0-17.5); MCH 31.1 pg (25.0-35.0); MCHC 32.4 g/dL (31.0-37.0); MCV 96.2 fL (80.0-100.0); Mean Platelet Volume 8.6; Platelet Count 183 k/uL (150-450); RBC 3.36 m/uL (4.30-5.90); RDW 13.9 % (11.5-15.5); WBC 11.4 k/uL (3.8-10.6)
[2020-11-08 07:41] LABS: African American GFR (CKD) >90 (>60 ml/min/1.73 sqM); Anion Gap 9 mmol/L; Blood Urea Nitrogen 23 mg/dL (9-20); Calcium 8.2 mg/dL (8.4-10.2); Carbon Dioxide 25 mmol/L (22-30); Chloride 98 mmol/L (98-107); Glucose 107 mg/dL (74-99); Non-African American GFR(CKD) 85 (>60 ml/min/1.73 sqM); Potassium 3.8 mmol/L (3.5-5.1); Sodium 132 mmol/L (137-145)
[2020-11-08] MEDS: IPRATROPIUM-ALBUTEROL 3 ML NEB INHALATION SCH ×3 (08:25→16:52)
[2020-11-08] MEDS ORDERED: FUROSEMIDE 10 MG/ML 4 ML VIAL IV STA (08:46)
--- NOTE | 2020-11-08 09:33 | US ---
EXAMINATION TYPE: US chest DATE OF EXAM: 11/08/2020 COMPARISON: NONE CLINICAL HISTORY: maddy for thoracentesis. SOB, pleural effusion TECHNIQUE: Targeted ultrasound of the posterior lower Bilateral EXAM MEASUREMENTS: Right Pleural Effusion pocket size: 5.9 cm Left Pleural Effusion pocket size: 2.8cm anterior pocket within 8cm total effusion Right side NOT marked - lung tissue draping over access window Left side NOT marked - mobile lung tissue floating within large pocket, did not maddy since tissue was within top 2cm of effusion Pulmonologists are able to review the images in the patient?s EMR. IMPRESSIONS: Areas were not marked. Please see findings above
[2020-11-08] MEDS: ASPIRIN 325 MG TAB PO SCH (09:40)
[2020-11-08] MEDS: CLOPIDOGREL 75 MG TAB PO SCH (09:40)
[2020-11-08] MEDS: THIAMINE 100 MG TAB PO SCH (09:40)
[2020-11-08] MEDS: TAMSULOSIN 0.4 MG CAP.ER.24H PO SCH (09:40)
[2020-11-08] MEDS: FOLIC ACID 1 MG TAB PO SCH (09:40)
[2020-11-08] MEDS: ATORVASTATIN 40 MG TAB PO SCH (09:40)
[2020-11-08] MEDS: METOPROLOL TARTRATE 50 MG TAB PO SCH (09:40)
[2020-11-08] MEDS: polyethylene glycoL 3350 17 GM POWD.PACK PO SCH (09:41)
[2020-11-08] MEDS: HEPARIN SODIUM,PORCINE/PF 5,000 UNIT/0.5 ML SYRINGE SQ SCH (09:41)
--- NOTE | 2020-11-08 10:28 | XR ---
EXAMINATION TYPE: XR chest 2V DATE OF EXAM: 11/08/2020 COMPARISON: Chest x-ray 11/07/2020 HISTORY: Postop coronary artery bypass graft TECHNIQUE: Frontal and lateral views of the chest are obtained. FINDINGS: Patient is post median sternotomy and left atrial appendage clip placement. Cardiac medias tinal silhouette is stable. Left-sided chest tube has been removed. Minimal left apical pneumothorax is present. There is persistent blunting the costophrenic angles. There are overlying artifacts. Patc hy basilar density is improved. Prominent lung volumes suggest underlying COPD. There are coronary ca lcifications. IMPRESSION: No evident complication status post chest tube removal. There may be small effusions, as sociated atelectasis.
--- NOTE | 2020-11-08 11:24 | P.PN ---
Subjective Progress Note Date: 11/08/20 Principal diagnosis: Symptomatic multivessel coronary artery disease, non-STEMI this admission. Previous medical history of CAD with prior stenting 15 years ago, hypertension, hyperlipidemia, paroxysmal atrial fibrillation with refusal of anticoagulation, hypothyroidism, obstructive sleep apnea with home CPAP use, prostate cancer with radiation seed treatment and subsequent bladder and bowel incontinence, diverticulosis, left leg cellulitis in April 2021, bilateral hip replacements with repeat surgery due to osteomyelitis, previous tobacco dependence, daily wine consumption, nightly cannabis use POD #5 coronary bypass grafting 3 vessels, left internal mammary artery to the left anterior descending artery, reverse saphenous vein graft to the obtuse marginal artery, reverse saphenous vein graft to posterior lateral branch of the right coronary artery, endoscopic harvesting of the right greater saphenous vein, ligation of the left atrial appendage using a 35 mm AtriClip, epi-aortic ultrasound and intraoperative transesophageal echocardiogram. Postoperative acute blood loss anemia and thrombocytopenia, expected given hemodilution and cardiopulmonary bypass pump The patient's currently sitting up in bed in the cardiac stepdown unit in no acute distress. States pain is controlled on current medication regimen. Denies shortness of breath. Has been able to turn in the hallway with standby assist. Continues to use incentive spirometry will achieving 1500 mL. Did complain of constipation yesterday, was given MiraLAX, positive bowel movement. Otherwise no new complaints. Chest x-ray reviewed, right-sided pleural effusion present. Ultrasound chest was ordered but the chest was not marked for thoracentesis as there is lung tissue within the effusion pocket. Objective - Vital Signs Vital signs: Vital Signs Temp 98.9 F 11/08/20 07:49 Pulse 78 11/08/20 08:35 Resp 15 11/08/20 07:49 BP 116/69 11/08/20 07:49 Pulse Ox 97 11/08/20 07:49 Intake & Output 11/07/20 11/08/20 11/08/20 18:59 06:59 18:59 Intake Total 720 240 Output Total 850 451 200 Balance -130 -451 40 Weight 104.1 kg Intake: Oral 720 240 Output: Urine 850 450 200 Urine/Stool Mix 1 Other: Voiding Method Urinal Urinal # Voids 1 1 # Bowel Movements 1 ABP, PAP, CO, CI - Last Documented Arterial Blood Pressure 109/49 Pulmonary Artery Pressure 39/16 Cardiac Output 5.9 Cardiac Index 2.8 - Exam CONSTITUTIONAL: Appears comfortable, cooperative, no acute distress RESPIRATORY: Lungs sounds diminished bilaterally, right greater than left. Respirations even, nonlabored. Currently on room air with oxygen saturation 97%. Able to achieve 1500 mL on incentive spirometry. Strong cough. CARDIOVASCULAR: S1, S2 present. Irregular rate and rhythm, controlled atrial fibrillation on telemetry. Sternum stable. Palpable peripheral pulses bilaterally. Bilateral lower extremity edema present. No calf pain or tenderness noted. Heart hugger in place with patient demonstrating appropriate use. Antiembolism stockings, SCDs present. GASTROINTESTINAL: Abdomen soft, nontender, nondistended. Active bowel sounds present 4 quadrants. Tolerating diet. Positive bowel movement. GENITOURINARY: Continues to void clear, yellow urine. Output 100-250 mL at a ti me, 1300 mL in the last 24 hours INTEGUMENTARY: Skin is warm and dry with evidence of good perfusion. Anterior chest incision well approximated and covered with dry intact dressing. EVH site well approximated without redness or drainage. NEUROLOGIC: Cranial nerves II through XII intact MUSKULOSKELETAL: Able to move all extremities, strength equal bilaterally, gait normal PSYCHIATRIC: Alert and oriented to person place and time, appropriate affect, intact judgment and insight - Labs CBC & Chem 7: 11/08/20 06:41 11/08/20 06:41 Labs: Abnormal Lab Results - Last 24 Hours (Table) 11/07/20 11/07/20 11/07/20 Range/Units 11:36 16:45 19:56 WBC (3.8-10.6) k/uL RBC (4.30-5.90) m/uL Hgb (13.0-17.5) gm/dL Hct (39.0-53.0) % Sodium (137-145) mmol/L BUN (9-20) mg/dL Glucose (74-99) mg/dL POC Glucose (mg/dL) 129 H 109 H 120 H (75-99) mg/dL Calcium (8.4-10.2) mg/dL 11/08/20 11/08/20 11/08/20 Range/Units 05:59 06:41 06:41 WBC 11.4 H (3.8-10.6) k/uL RBC 3.36 L (4.30-5.90) m/uL Hgb 10.4 L (13.0-17.5) gm/dL Hct 32.3 L (39.0-53.0) % Sodium 132 L (137-145) mmol/L BUN 23 H (9-20) mg/dL Glucose 107 H (74-99) mg/dL POC Glucose (mg/dL) 105 H (75-99) mg/dL Calcium 8.2 L (8.4-10.2) mg/dL - Imaging and Cardiology Chest x-ray: report reviewed, image reviewed Assessment and Plan Assessment: 1. Symptomatic multivessel coronary artery disease, non-STEMI this admission, status post three-vessel CABG 2. History of CAD with prior stenting 15 years ago 3. Hypertension 4. Hyperlipidemia, cholesterol 216, LDL 136 5. Paroxysmal atrial fibrillation with refusal of anticoagulation, status post left atrial appendage ligation 6. Hypothyroidism 7. Obstructive sleep apnea with home CPAP use 8. Prostate cancer with radiation seed treatment and subsequent bladder and bowel incontinence 9. Diverticulosis 10. Left leg cellulitis in April 2021 11. 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 Previous tobacco dependence 13. Daily wine consumption 14. Nightly cannabis use 14. Postoperative acute blood loss anemia and thrombocytopenia, expected Plan: 1. Continue aspirin, statin, Plavix, beta bc. Patient has refused statin in the past due to significant myalgias and weakness. 2. Encourage incentive spirometry 10 times every hour while awake. Bronchodilators per pulmonology 3. Increase activity, ambulate as tolerated. PT/OT/cardiac rehab following 4. Will monitor labs and x-rays. Electrolyte replacement per protocol. We will give Lasix 40 mg IV push 1 5. GI/DVT prophylaxis 6. Pain control with current medication regimen 7. Insulin management per primary care service. Patient is not diabetic, preoperative hemoglobin A1c 5.2% 8. Strict accurate intake and output. Daily weights. 9. Epicardial pacemaker wires discontinued this morning without incident 10. Anticipate discharge home with home care later this afternoon 11. More recommendations to follow Time with Patient: Greater than 30
[2020-11-08 11:36] LABS: Glucose,Whole Blood 122 mg/dL (75-99)
[2020-11-08 11:47] VITALS: BP 109/58; PULSE 83; RESP 16; TEMP 99.4
[2020-11-08] MEDS ORDERED: polyethylene glycoL 3350 17 GM POWD.PACK PO PRN (12:55)
--- NOTE | 2020-11-08 12:57 | P.PN ---
Subjective HISTORY OF PRESENTING ILLNESS This is a pleasant 80-year-old male past medical history significant for atrial fibrillation, coronary artery disease with previous PCI (unknown details about 17 years ago per patient), hypertension, hypothyroidism, LING. He follows in the office with a [employer]enger Firer in [facility]. We have been asked to see in consu ltation for chest pain. Patient underwent cardiac catheterization with Dr. Richardson on 11/02/20 which revealed severe triple-vessel disease and coronary bypass surgery was recommended. 11/03/20, Patient underwent coronary bypass grafting 3 vessels, left internal mammary artery to the left anterior descending artery, reverse saphenous vein graft to the obtuse marginal artery, reverse saphenous vein graft to posterior lateral branch of the right coronary artery, endoscopic harvesting of the right greater saphenous vein, ligation of the left atrial appendage using a 35 mm AtriClip, epi-aortic ultrasound and intraoperative transesophageal echocardiogram. 11/08/2020: Patient is POD #5, lying in bed with a respiratory treatment. No acute distress. States he is able to walk in the [place], has to take breaks but his activity tolerance is improving. Denies shortness of breath. Using incentive spirometer with 1.5L. BP 109/58, HR 83, temp 99.4, maintaining oxygen saturations 95% on room air. Laboratory data reviewed, WBC 11.4, hemoglobin 10.4, platelets 183, sodium 132, potassium 3.8, serum creatinine 0.77, BUN 23. Currently being maintained on, aspirin 325 mg daily, atorvastatin 40 mg daily, Plavix 75 mg daily, Toprol tartrate 50 mg twice a day. Telemetry reviewed, patient in atrial fibrillation, rate is controlled. PHYSICAL EXAMINATION CONSTITUTIONAL: No apparent distress. HEENT: No JVD. No carotid bruit. CHEST EXAMINATION: Lungs are clear to auscultation. No chest wall tenderness is noted on palpation or with deep breathing. HEART EXAMINATION: Irregular rate and rhythm. S1, S2 heard. No murmurs, gallops or rub. ABDOMEN: Soft, nontender. Positive bowel sounds. SKIN: Anterior chest site clean dry intact EXTREMITIES: 2+ peripheral pulses, no lower extremity edema and no calf tend erness. NEUROLOGIC EXAMINATION: Patient is awake, alert and oriented x3. ASSESSMENT NSTEMI, patient with crescendo angina Symptomatic multivessel coronary artery disease s/p 3 vessel CABG Paroxysmal atrial fibrillation [id number] score 4, Refusal of anticoagulation, status post left atrial appendage ligation History of coronary artery disease with previous PCI per patient- unknown details Hypertension Hyperlipidemia - patient has refused statin in the past and listed as an allergy due to significant myalgias and weakness Hypothyroidism Obstructive sleep apnea Former nicotine dependence PLAN Continue aspirin, statin, Plavix, beta bc. Post operative management per CTS Encourage incentive spirometer use Patient to follow up in the office with Dr. Jasso Nurse Practitioner note has been reviewed, I agree with a documented findings and plan of care. Patient was seen and examined. Objective - Vital Signs Vital signs: Vital Signs Temp 99.4 F 11/08/20 11:44 Pulse 83 11/08/20 11:44 Resp 16 11/08/20 11:44 BP 109/58 11/08/20 11:44 Pulse Ox 95 11/08/20 11:44 Intake & Output 11/07/20 11/08/20 11/08/20 18:59 06:59 18:59 Intake Total 720 240 Output Total 850 451 200 Balance -130 -451 40 Weight 104.1 kg Intake: Oral 720 240 Output: Urine 850 450 200 Urine/Stool Mix 1 Other: Voiding Method Urinal Urinal # Voids 1 1 # Bowel Movements 1 ABP, PAP, CO, CI - Last Documented Arterial Blood Pressure 109/49 Pulmonary Artery Pressure 39/16 Cardiac Output 5.9 Cardiac Index 2.8 - Labs CBC & Chem 7: 11/08/20 06:41 11/08/20 06:41 Labs: Abnormal Lab Results - Last 24 Hours (Table) 11/07/20 11/07/20 11/08/20 Range/Units 16:45 19:56 05:59 WBC (3.8-10.6) k/uL RBC (4.30-5.90) m/uL Hgb (13.0-17.5) gm/dL Hct (39.0-53.0) % Sodium (137-145) mmol/L BUN (9-20) mg/dL Glucose (74-99) mg/dL POC Glucose (mg/dL) 109 H 120 H 105 H (75-99) mg/dL Calcium (8.4-10.2) mg/dL 11/08/20 11/08/20 11/08/20 Range/Units 06:41 06:41 11:34 WBC 11.4 H (3.8-10.6) k/uL RBC 3.36 L (4.30-5.90) m/uL Hgb 10.4 L (13.0-17.5) gm/dL Hct 32.3 L (39.0-53.0) % Sodium 132 L (137-145) mmol/L BUN 23 H (9-20) mg/dL Glucose 107 H (74-99) mg/dL POC Glucose (mg/dL) 122 H (75-99) mg/dL Calcium 8.2 L (8.4-10.2) mg/dL
--- NOTE | 2020-11-08 13:13 | P.PN ---
Subjective Progress Note Date: 11/08/20 (delayed charting seen at 0845) Principal diagnosis: chest pain Patient is an 80 yo CM with A fib, GERD, HTN, and HLD who presented with chest pain and shortness of breath. He underwent cardiac cath and was found to ave trippple vessel disease. He underwent 3 vessel bypass on 11/03: Patient seen and examined at bedside. Breathing is better today and is improving everyday, pain is better, had large BM X 2 yesterday, General: non toxic, no distress, appears younger than stated age Derm: warm, dry Head: atraumatic, normocephalic, symmetric Eyes: EOMI, no lid lag, anicteric sclera Mouth: no lip lesion, mucus membranes moist Cardiovascular: S1S2 reg, no murmur, positive posterior tibial pulse bilateral, Lungs: Decreased breath sounds bilateral bilateral, no rhonchi, no rales , no accessory muscle use, chest tube in place Abdominal: soft, nontender to palpation, no guarding, no appreciable organomegaly Ext: no gross muscle atrophy, no edema, no contractures Neuro: CN II-XI grossly intact, no focal neuro deficits Psych: Alert, oriented, appropriate affect CAD s/p 3 vessel bypass, Ischemic cardiomyopathy with EF 45-50%, NSTEMI - ASA, plavix - lipitor - Blood sugar improved, continue SSI, pre-op A1C 5.2 will not require treatment at home Elevated WBC - no specific complaints at this time, likely due to stress from surgery - repeat outpatient CBC in 2-5 days - discussed with Hermila Kline Constipation, resolved - change miralax to prn Anemia, post-op and anticipated - stable - follow CBC Paroxysmal atrial fibrillation -patient declines long-term anticoagulation and he is status post left atrial appendage ligation - tele - cardio recs Dyslipidemia -Not chronically on statin therapy secondary to history of severe myalgia Hypothyroidism -Synthroid LING -Continue with CPAP at home Obesity wtih BMI 35.2 - structured outpatient weight loss Hyponatremia, mild and stable - outpatient monitoring Elevated BP without diagnosis of HTN, resolved Thrombocytopenia, post-op and anticipated, resolved D/W Hermila Kline and anticipate discharge today. Objective - Vital Signs Vital signs: Vital Signs Temp 99.4 F 11/08/20 11:44 Pulse 83 11/08/20 11:44 Resp 16 11/08/20 11:44 BP 109/58 11/08/20 11:44 Pulse Ox 95 11/08/20 11:44 Intake & Output 11/07/20 11/08/20 11/08/20 18:59 06:59 18:59 Intake Total 720 240 Output Total 850 451 200 Balance -130 -451 40 Weight 104.1 kg Intake: Oral 720 240 Output: Urine 850 450 200 Urine/Stool Mix 1 Other: Voiding Method Urinal Urinal # Voids 1 1 # Bowel Movements 1 ABP, PAP, CO, CI - Last Documented Arterial Blood Pressure 109/49 Pulmonary Artery Pressure 39/16 Cardiac Output 5.9 Cardiac Index 2.8 - Labs CBC & Chem 7: 11/08/20 06:41 11/08/20 06:41 Labs: Abnormal Lab Results - Last 24 Hours (Table) 11/07/20 11/07/20 11/08/20 Range/Units 16:45 19:56 05:59 WBC (3.8-10.6) k/uL RBC (4.30-5.90) m/uL Hgb (13.0-17.5) gm/dL Hct (39.0-53.0) % Sodium (137-145) mmol/L BUN (9-20) mg/dL Glucose (74-99) mg/dL POC Glucose (mg/dL) 109 H 120 H 105 H (75-99) mg/dL Calcium (8.4-10.2) mg/dL 11/08/20 11/08/20 11/08/20 Range/Units 06:41 06:41 11:34 WBC 11.4 H (3.8-10.6) k/uL RBC 3.36 L (4.30-5.90) m/uL Hgb 10.4 L (13.0-17.5) gm/dL Hct 32.3 L (39.0-53.0) % Sodium 132 L (137-145) mmol/L BUN 23 H (9-20) mg/dL Glucose 107 H (74-99) mg/dL POC Glucose (mg/dL) 122 H (75-99) mg/dL Calcium 8.2 L (8.4-10.2) mg/dL
--- NOTE | 2020-11-08 15:19 | P.DS ---
Providers Date of admission: 11/02/20 13:37 Expected date of discharge: 11/08/20 Attending physician: Moreno Eli Consults: 11/01/20 18:12 Consult Physician Urgent Consulting Provider: [facility] Consult Reason/Comments: Unstable angina Do you want consulting provider notified?: Yes 11/02/20 11:52 Consult Physician Urgent Consulting Provider: Moreno Eli Consult Reason/Comments: cardio thorasic open heart surgery Do you want consulting provider notified?: Yes 11/02/20 11:54 Consult Physician Urgent Consulting Provider: Evelyn Anand Consult Reason/Comments: clearance for cardiac surgery Do you want consulting provider notified?: Yes 11/02/20 17:25 Consult to Anesthesia Routine Consulting Provider: Anesthesia,Services Consult Reason/Comments: Cardiac Surgery Pre-Op 11/03/20 14:46 Consult Physician Routine Consulting Provider: Getachew Patel Consult Reason/Comments: med mgmt Do you want consulting provider notified?: Already Contacted Primary care physician: [facility] Course: FINAL DIAGNOSIS: 1. Symptomatic multivessel coronary artery disease, non-STEMI this admission 2. History of CAD with prior stenting 15 years ago 3. Hypertension 4. Hyperlipidemia, cholesterol 216, LDL 136 5. Paroxysmal atrial fibrillation with refusal of anticoagulation 6. Hypothyroidism 7. Obstructive sleep apnea with home CPAP use 8. Prostate cancer with radiation seed treatment and subsequent bladder and bowel incontinence 9. Diverticulosis 10. Left leg cellulitis in April 2021 11. Bilateral hip replacements with repeat surgery to osteomyelitis 12. Previous tobacco dependence 13. Daily wine consumption 14. Nightly cannabis use 15. Postoperative acute blood loss anemia and thrombocytopenia PRINCIPAL PROCEDURE: 1. Coronary bypass grafting 3 vessels, left internal mammary artery to the left anterior descending artery, reverse saphenous vein graft to the obtuse marginal artery, reverse saphenous vein graft to posterior lateral branch of the great coronary artery 2. Endoscopic harvesting of the right greater saphenous vein 3. Ligation of the left atrial appendage using a 35 mm AtriClip 4. Epi-aortic ultrasound and intraoperative transesophageal echocardiogram HISTORY OF PRESENT ILLNESS: This is an 80-year-old gentleman who follows on an outpatient basis with Dr. Leon for primary care and Dr. Yates for cardiology. He presented to [facility] emergency room with complaints of chest pain and increased exertional dyspnea for the previous month. Troponins were elevated and he was ruled in for non-STEMI. Transthoracic echocardiogram was completed demonstrating mildly impaired left ventricular function with EF 45-50%, mid lateral LV wall motion hypokinesis, dilation of the left atrium and enlargement of the right ventricle, mild mitral regurgitation, with mild mitral annular calcification, and mild tricuspid regurgitation. He was recommended to undergo heart catheterization which demonstrated 99% proximal LAD stenosis, 95% stenosis in the PLB, 70% ramus stenosis, 90% ostial circumflex as well as obtuse marginal stenosis. Consultation was placed to Dr. Eli from cardiothoracic surgery. He was recommended to undergo urgent coronary artery bypass surgery. The usual perioperative course was discussed in detail with the patient and his family, all risks and benefits were explained, all questions were answered, and consent was obtained to proceed with surgery. The patient was kept inpatient due to the nature of his disease process. HOSPITAL COURSE: The patient was brought to the preoperative area 11/03/2020, prepared in the usual fashion, and subsequently taken to the operating room where Dr. Eli performed three-vessel CABG. Upon completion of surgery the patient was transferred to the cardiovascular intensive care unit where he was recovered and monitored hemodynamically. He was extubated, all lines, tubes, and drips were discontinued when appropriate, and he was transferred to 3 S. cardiac stepdown unit for further monitoring and rehabilitation. His oxygen was titrated down, he continued to work with physical and occupational therapy, he was tolerating oral diet, his pain was controlled, and he was ready to be discharged to home with [facility] care on postoperative day #5. He received written and verbal instruction regarding his medications, activity restrictions, signs and symptoms requiring physician notification, and follow-up appointments. Prior to surgery he had been refusing statin medication as it causes him sig nificant myalgias and myopathies, however postoperatively he has been taking statins and will be discharged on atorvastatin. COMPLICATIONS: The patient experienced no postoperative complications. Patient Condition at Discharge: Stable Plan - Discharge Summary New Discharge Prescriptions: New Tamsulosin [Flomax] 0.4 mg PO PC-BRKFST #30 cap.er.24h Potassium Chloride ER [K-Dur 10] 10 meq PO DAILY #5 tab Furosemide [Lasix] 40 mg PO DAILY #5 tablet Atorvastatin [Lipitor] 40 mg PO DAILY #30 tab Clopidogrel [Plavix] 75 mg PO DAILY #30 tab Acetaminophen Tab [Tylenol] 650 mg PO Q4HR PRN tab PRN Reason: Fever And/ Or Pain Metoprolol Tartrate [Lopressor] 50 mg PO BID #60 tab polyethylene glycoL 3350 [Miralax] 17 gm PO DAILY PRN powd.pack PRN Reason: Constipation Continue Levothyroxine Sodium [Levoxyl] 75 mcg PO DAILY Aspirin 325 mg PO BID #60 tab Pantoprazole Sodium [Protonix] 40 mg PO DAILY Discharge Medication List Levothyroxine Sodium [Levoxyl] 75 mcg PO DAILY 07/22/18 [History] Aspirin 325 mg PO BID #60 tab 06/30/19 [Rx] Pantoprazole Sodium [Protonix] 40 mg PO DAILY 11/01/20 [History] Acetaminophen Tab [Tylenol] 650 mg PO Q4HR PRN tab 11/08/20 [Rx] Atorvastatin [Lipitor] 40 mg PO DAILY #30 tab 11/08/20 [Rx] Clopidogrel [Plavix] 75 mg PO DAILY #30 tab 11/08/20 [Rx] Furosemide [Lasix] 40 mg PO DAILY #5 tablet 11/08/20 [Rx] Metoprolol Tartrate [Lopressor] 50 mg PO BID #60 tab 11/08/20 [Rx] Potassium Chloride ER [K-Dur 10] 10 meq PO DAILY #5 tab 11/08/20 [Rx] Tamsulosin [Flomax] 0.4 mg PO PC-BRKFST #30 cap.er.24h 11/08/20 [Rx] polyethylene glycoL 3350 [Miralax] 17 gm PO DAILY PRN powd.pack 11/08/20 [Rx] Follow up Appointment(s)/Referral(s): Tejas Jasso MD [STAFF PHYSICIAN] - 2 Weeks (office will call with appointment) Hermila Sales NPC [Nurse Practitioner] - 11/11/20 11:00 am Samantha De La Garza NPC [Nurse Practitioner] - 12/02/20 3:00 pm [facility], [NON-STAFF] - 1-2 Days Moreno Eli MD [STAFF PHYSICIAN] - 12/05/20 9:45 am Cristo Lyn DO [Primary Care Provider] - 1-2 days Ambulatory/Diagnostic Orders: Complete Blood Count w/diff [LAB.AMB] Time Frame: 3 Days, Location: None Selected Comprehensive Metabolic Panel [LAB.AMB] Time Frame: 3 Days, Location: None Selected Activity/Diet/Wound Care/Special Instructions: DISCHARGE INSTRUCTIONS: 1. No driving for 4 weeks, or until physician gives their ok. 2. The patient should sleep in their own bed, no medical bed needed. 3. Stairs are not an issue. If the bedroom is upstairs, it is advised that the patient go up at night and down in the morning for the first week. Go slowly, using handrail and take 1 step at a time. 4. MARGO hose are to be worn for 30 days or until physician discontinues. 5. Heart hugger is to be worn 100% of the time until physician discontinues.(except when showering) 6. No lifting, pushing, or pulling more than 10 pounds for 12 weeks. The physician will advise of any restriction changes. 7. The patient is expected to continue the prescribed walking program. 8. Continue pain control per as needed orders. 9. Continue with incentive spirometry and splinting/heart hugger until otherwise directed by the physician. 10. Must shower daily using liquid antibacterial soap and a separate white washcloth for each individual incision. 11. Routine sternal incision care. No powders, lotions, ointments on incisions. No dressings are necessary on incisions unless they are draining. Dermabond tape is to remain on sternal incision until surgeon follow-up. 12. Please call surgeon/SOAP MAKER for temp greater than 101 F or purulent drainage from incisions. 13. All prescriptions given by surgeon for 30 days. Refills need to be filled through tray line supervisor/primary care physician. 14. A Red armband has been placed on the patient. It should be worn for 30 days post surgery and will be removed by the cardiac surgeons. If an ER visit is necessary, please make sure the number on the Red armband is called. 15. You have been referred to and are expected to begin Cardiac Rehab in approximately 4-6 weeks. HOME HEALTH SERVICES TO PROVIDE: RN SKILLED HOME CARE SERVICES FOR POST-OP SURGICAL PATIENTS WITH THE FOLLOWING: Coronary Artery Bypass Surgery (CABG), Mitral Valve Replacement/Repair ( MVR), Aortic Valve Replacement/Repair (AVR) RN TO CONTINUE EDUCATION FROM ``ROAD TO A HEALTH HEART PATIENT EDUCATION MANUAL (GIVEN TO PATIENT IN THE HOSPITAL) MEDICATION RECONCILIATION WITH EDUCATION NEEDED ON FIRST HOME VISIT EMPHASIZE IMPORTANCE OF WEARING BREAST SUPPORT/HEART HUGGER ENCOURAGE USE OF INCENTIVE SPIROMETER 10 X EVERY HOUR WHILE AWAKE ENCOURAGE UTILIZATION OF LOWER EXTREMITY COMPRESSION STOCKINGS/MARGO HOSE and ELEVATE LEGS ABOVE LEVEL OF HEART WHILE AT REST. ENCOURAGE AMBULATION 3-5x/day INCREASING TOLERATES, WHILE AVOIDING EXTREMES IN TEMPERATURE FREQUENCY: RN TO OPEN THE PATIENT WITHIN 24 HOURS OF DISCHARGE FROM THE HOSPITAL WITH [place]LEHEALTH [place] [facility] [place]IT 2-3 X A WEEK FOR 4 WEEKS ESTABLISHED BY PATIENT NEEDS. LABORATORY: CBC, CMP TO BE DRAWN ON THE THIRD DAY HOME, (RAN STAT) FAX RESULTS TO [phone]. TELEHEALTH PARAMETERS: WEIGHT: NOTIFY MD OF WEIGHT GAIN OF 2 LBS IN 24 HOURS OR 5 LBS IN ONE WEEK HR: NOTIFY MD OF HR <55 BPM OR HR>100 BPM BP: NOTIFY MD IF BP <90/55 OR BP>140/100 O2 SAT: NOTIFY MD IF PO2<93% ON ROOM AIR SEND TELEHEALTH REPORT TO MOTHER BABY RN AND CARDIOVASCULAR SURGEON THE FIRST WEEK OF CARE AND THEN BI-WEEKLY. PLEASE ADDITIONALLY COMMUNICATE ANY ABNORMALS AND NEW FINDINGS TO THE SURGEONS OFFICE. For any questions or concerns please call head of transport logistics Hermila @ or Josué @ [employer] CM at discharge for indigent funds Pt does not have rx coverage Discharge Disposition: HOME WITH HOME HEALTH SERVICES
--- NOTE | 2020-11-08 16:20 | P.PN ---
Subjective Progress Note Date: 11/08/20 Principal diagnosis: Exertional shortness of breath and chest pain 80-year-old white male patient of Dr. 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 Patient states that every time he is walking his chest pain gets worse, and there is associated increased shortness of breath as well. Denied radiation to his arm, or his neck, no diaphoresis, no palpitations, no recent fever or chills, no cough, no swelling in his bilateral lower extremity's, no nausea vomiting or diarrhea. Patient was also seen by his fittings tightener in the office, and EKG showed atrial fibrillation with no acute changes. X-ray was completed showing borderline cardiomegaly, no heart failure, no significant change compared to old exam. CBC was within normal limits, coagulation profile was within normal limits electrolytes and renal profile were unremarkable, COVID-19 PCR was negative, his first troponin was less than 0.012, second and the third were 0.033 and 0.098. Patient underwent heart catheterization today and was found to have severe triple-vessel disease with a 95% disease involving the LV branch of a dominant RCA, there was a proximal LAD disease, and there was a disease involving the ramus of about 70%, was also made circumflex ostium lesion that was quite significant. Filling pressures were normal. Echocardiogram was completed and mild concentric LVH, mildly impaired left ventricular systolic function with EF of 45-50%, mild MR, mild TR, and right-sided pressures of 47.8 mmHg. Was referred to cardiothoracic surgery for possibility of coronary artery bypass grafting, and we're consulted for pulmonary evaluation, and ICU management On 11/03/2020 patient is seen in the postoperative period in the intensive care unit following three-vessel coronary artery bypass grafting with the AZAR to the LAD, SVG to the OM, and SVG to the PLV, right leg endoscopic vein harvest, and exclusion of the left atrial appendage. Patient is sedated and intubated on assist control mode of ventilation, with a rate of 12, tidal volume is 400, FiO2 of 60% and PEEP of 5. He is on lactated Ringer's at a rate of 50 ML per hour, he is on Diprivan at 20 mics per kilo per minute, Primacor is at 0.375, nitroglycerin drip is at 5 mics per kilo per minute, Levophed is at 7 mics per minute. PA pressure is 30/18, cardiac output was 4.8 and cardiac index was 2.3 patient is currently being paced at DDD mode with a rate of 70, intrinsic rhythm is sinus rhythm with 1st degree AV block, required pacemaker support earlier for slow atrial fibrillation with a rate of 40 BPM. he has a 2 mediastinal left pleural chest tubes with small amount of serous output in the chest tubes, no evidence of air leak, postoperative blood gas and chest x-ray are pending at this time. On 11/08/2020 patient seen in follow-up on selective care unit, he is awake and alert, currently on room air, his pulse ox is 95%, vital signs are stable, he is breathing comfortably, no complaint of chest pain, his IV fluids have been hep- locked, his chest x-ray today showed small pleural effusions, and associated atelectasis, ultrasound of the chest has been obtained showing right pleural effusion pocket of 5.9 cm however the right side was not marked because of lung tissue draping over access window, and a left pleural effusion pocket was 2.8 cm and there was a mobile lung tissue floating within the large pocket did not maddy since tissue was within top 2 cm of effusion. However patient is not requiring any supplemental oxygen, he is breathing comfortably, PTT surgery has been dosing his diuretics, and patient received an additional dose of IV Lasix 40 mg this morning. He is working on incentive spirometer, he is ambulating. His had no worsening dyspnea or hypoxia, he is currently on full dose aspirin, Plavix, Lipitor. He is anticipating discharge home today Objective - Vital Signs Vital signs: Vital Signs Temp 99.4 F 11/08/20 11:44 Pulse 83 11/08/20 11:44 Resp 16 11/08/20 11:44 BP 109/58 11/08/20 11:44 Pulse Ox 95 11/08/20 11:44 Intake & Output 11/07/20 11/08/20 11/08/20 18:59 06:59 18:59 Intake Total 720 480 Output Total 850 451 600 Balance -130 -451 -120 Weight 104.1 kg Intake: Oral 720 480 Output: Urine 850 450 600 Urine/Stool Mix 1 Other: Voiding Method Urinal Urinal # Voids 1 1 # Bowel Movements 1 ABP, PAP, CO, CI - Last Documented Arterial Blood Pressure 109/49 Pulmonary Artery Pressure 39/16 Cardiac Output 5.9 Cardiac Index 2.8 - Exam GENERAL EXAM: Awake and alert, oriented 3, 80-year-old white male on room air, with a pulse ox of 95% comfortable in no apparent distress. HEAD: Normocephalic/atraumatic. EYES: Normal reaction of pupils, equal size. Conjunctiva pink, sclera white. NOSE: Clear with pink turbinates. THROAT: No erythema or exudates. NECK: No masses, no JVD, no thyroid enlargement, no adenopathy. LUNGS: Equal air entry with mild end expiratory wheezing CVS: Regular rate and rhythm, normal S1 and S2, no gallops, no murmurs, no rubs ABDOMEN: Soft, nontender. No hepatosplenomegaly, normal bowel sounds, no guarding or rigidity. EXTREMITIES: No clubbing, no edema, no cyanosis, 2+ pulses and upper and lower extremities. MUSCULOSKELETAL: Muscle strength and tone normal. Bilateral lower extremities are Booker wrapped SPINE: No scoliosis or deformity SKIN: No rashes CENTRAL NERVOUS SYSTEM: Awake, alert, oriented 3 No focal deficits, tone is normal in all 4 extremities. - Labs CBC & Chem 7: 11/08/20 06:41 11/08/20 06:41 Labs: Abnormal Lab Results - Last 24 Hours (Table) 11/07/20 11/07/20 11/08/20 Range/Units 16:45 19:56 05:59 WBC (3.8-10.6) k/uL RBC (4.30-5.90) m/uL Hgb (13.0-17.5) gm/dL Hct (39.0-53.0) % Sodium (137-145) mmol/L BUN (9-20) mg/dL Glucose (74-99) mg/dL POC Glucose (mg/dL) 109 H 120 H 105 H (75-99) mg/dL Calcium (8.4-10.2) mg/dL 11/08/20 11/08/20 11/08/20 Range/Units 06:41 06:41 11:34 WBC 11.4 H (3.8-10.6) k/uL RBC 3.36 L (4.30-5.90) m/uL Hgb 10.4 L (13.0-17.5) gm/dL Hct 32.3 L (39.0-53.0) % Sodium 132 L (137-145) mmol/L BUN 23 H (9-20) mg/dL Glucose 107 H (74-99) mg/dL POC Glucose (mg/dL) 122 H (75-99) mg/dL Calcium 8.2 L (8.4-10.2) mg/dL Assessment and Plan Plan: #1. Symptomatic multivessel coronary artery disease, status post three-vessel coronary artery bypass grafting with AZAR to the LAD, and SVG to the OM and PLV, left atrial appendage exclusion, postoperative day #5 #2. Routine postoperative ventilator management, and patient was successfully extubated on 11/04/2020 #3. Coronary artery disease with previous PCI #4. Hypertension #5. Chronic A. fib, and the patient refuses chronic anticoagulation, is currently just on aspirin #6. Remote and brief history of smoking #7. Congenital malformation of the sternal bone, and patient has a chronic indentation of the sternum, pectus excavatum #8. Obstructive sleep apnea #9. Hypothyroidism #10. Hyperactive bladder #11. History of prostate cancer with seed implants in 2002 #12. Osteoarthritis #13. Previous history of myocardial infarction #14. Daily use of cannabis Plan: Patient is doing well Chest x-ray reviewed showing small bilateral pleural effusions Ultrasound the chest showed pleural effusions, however pleural fluid pockets were not marked related to lung tissue in the pleural fluid Not requiring any supplemental oxygen, breathing comfortably Received a dose of IV Lasix Vital signs have been stable He is anticipating discharge home today He will need outpatient follow-up with Dr. Anand in the office in 7-10 days I performed a history & physical examination of the patient and discussed their management with my nurse practitioner, Nani Lynch. I reviewed the nurse practitioner's note and agree with the documented findings and plan of care. Lung sounds are positive for diminished breath sounds. The findings and the impression was discussed with the patient. I attest to the documentation by the nurse practitioner. Time with Patient: Less than 30
--- NOTE | 2020-11-09 10:19 | P.ARTDOP ---
Arterial Doppler LOWER EXTREMITY ARTERIAL DOPPLER: DATE OF SERVICE: 11/02/2020 Reason for study: Preop CABG. Doppler waveforms: Multiphasic bilaterally throughout with good toe waveforms. Pulse volume recording: []. Pressure gradients: None. Ankle-brachial indices: Greater than 1 bilaterally. Toe brachial indices: 0.83 on the right, 0.81 on the left Impression: Normal study.
--- NOTE | 2020-11-09 10:22 | P.VSCSTY ---
Greater Saphenous Vein Mapping This is bilateral lower extremity greater saphenous vein mapping. Date of service: 11/02/2020 Vein quality and ultrasound appearance: Some intimal thickening seen throughout. No intraluminal thrombus is seen.. Vein size groin right : 6.2 x 5.5 groin left: 4.9 x 5.2 High thigh right: 3.5 x 3.8 high thigh left: 5.0 x 4.8 Mid thigh right: 3.7 x 3.6 mid thigh left: 4.0 x 4.1 Above-knee right: 3.4 x 3.1 above- knee left: 5.2 x 4.2 Below knee right: 3.5 x 3.1 below-knee left: 2.8 x 2.6 Mid calf right: 3.5 x 2.8 mid calf left: 3.5 x 2.4 Ankle right: 2.9 x 2.2 ankle left: 2.2 x 1.8 Impression: Appears to be usable greater saphenous vein bilaterally. Since the wall thickening is so diffuse, I suspect that is not postphlebitic vein. Clinical correlation recommended.
== END 2020-11-08 16:52 | disposition home health service (06) | DRG 234 ==
LOC: EC 16:30 → 6NMEDSUR 18:36 → OBSVTOIN 11-02 13:37 → 2SICU 11-03 07:26 → 3SCARD 11-06 21:05
PROVIDERS: ADMIT Internal Medicine; ATTEND Surgery
PROC: 4A023N7 Measurement of Cardiac Sampling and Pressure, Left Heart, Percutaneous Approach (ICD-10-PCS; 2020-11-02)
PROC: B54DZZZ Ultrasonography of Bilateral Lower Extremity Veins (ICD-10-PCS; 2020-11-02)
PROC: B2111ZZ Fluoroscopy of Multiple Coronary Arteries using Low Osmolar Contrast (ICD-10-PCS; 2020-11-02)
PROC: 06BP4ZZ Excision of Right Saphenous Vein, Percutaneous Endoscopic Approach (ICD-10-PCS; 2020-11-03)
PROC: 02L70CK Occlusion of Left Atrial Appendage with Extraluminal Device, Open Approach (ICD-10-PCS; 2020-11-03)
PROC: 5A1221Z Performance of Cardiac Output, Continuous (ICD-10-PCS; 2020-11-03)
PROC: 02100Z9 Bypass Coronary Artery, One Artery from Left Internal Mammary, Open Approach (ICD-10-PCS; principal; 2020-11-03 07:30)
PROC: 021109W Bypass Coronary Artery, Two Arteries from Aorta with Autologous Venous Tissue, Open Approach (ICD-10-PCS; 2020-11-03 07:30)
DX: I21.4 Non-ST elevation (NSTEMI) myocardial infarction (principal); I48.19 Other persistent atrial fibrillation; D62 Acute posthemorrhagic anemia; J90 Pleural effusion, not elsewhere classified; D69.6 Thrombocytopenia, unspecified; Z68.35 Body mass index [BMI] 35.0-35.9, adult; I11.9 Hypertensive heart disease without heart failure; I95.9 Hypotension, unspecified; Z20.822 Contact with and (suspected) exposure to COVID-19; E78.5 Hyperlipidemia, unspecified; K21.9 Gastro-esophageal reflux disease without esophagitis; M19.90 Unspecified osteoarthritis, unspecified site; E03.9 Hypothyroidism, unspecified; N32.81 Overactive bladder; I45.10 Unspecified right bundle-branch block; E66.9 Obesity, unspecified; I08.1 Rheumatic disorders of both mitral and tricuspid valves; I25.10 Atherosclerotic heart disease of native coronary artery without angina pectoris; G47.33 Obstructive sleep apnea (adult) (pediatric); I25.5 Ischemic cardiomyopathy; R32 Unspecified urinary incontinence; R15.9 Full incontinence of feces; I44.0 Atrioventricular block, first degree; K59.00 Constipation, unspecified; M79.10 Myalgia, unspecified site; K57.90 Diverticulosis of intestine, part unspecified, without perforation or abscess without bleeding; Q67.6 Pectus excavatum; I25.2 Old myocardial infarction; Z71.3 Dietary counseling and surveillance; Z79.899 Other long term (current) drug therapy; Z79.890 Hormone replacement therapy; Z79.82 Long term (current) use of aspirin; Z86.19 Personal history of other infectious and parasitic diseases; Z98.42 Cataract extraction status, left eye; Z98.41 Cataract extraction status, right eye; Z85.46 Personal history of malignant neoplasm of prostate; Z96.1 Presence of intraocular lens; Z92.3 Personal history of irradiation; Z86.010 Personal history of colon polyps; Z98.890 Other specified postprocedural states; Z96.643 Presence of artificial hip joint, bilateral; Z87.891 Personal history of nicotine dependence; Z95.5 Presence of coronary angioplasty implant and graft; Z91.14 Patient's other noncompliance with medication regimen; Z88.8 Allergy status to other drugs, medicaments and biological substances; Z80.0 Family history of malignant neoplasm of digestive organs; Z83.79 Family history of other diseases of the digestive system
CPT/HCPCS: 36415; 71045; 71046; 71250; 76604; 80048; 80053; 80061; 80074; 81001; 82330; 82805; 83036; 83735; 83880; 84132; 84153; 84443; 84484; 85025; 85027; 85520; 85610; 85730; 86850; 86891; 86900; 86901; 86920; 87070; 87635; 93005; 93306; 93458; 93880; 93922; 93970; 94002; 94150; 94640; 96360; 99291

== ENCOUNTER → 2021-02-10 | Outpatient (CLI) | payer MEDICARE, BC ==
[2021-02-10 18:28] LABS: Basophils # (A) 0.04 X 10*3/uL (0.00-0.10); Basophils % (A) 0.6 %; Eosinophils # (A) 0.13 X 10*3/uL (0.04-0.35); Eosinophils % (A) 2.1 %; HCT 39.5 % (39.6-50.0); HGB 12.1 g/dL (13.0-17.0); Lymphocytes # (A) 1.54 X 10*3/uL (0.90-5.00); Lymphocytes % (A) 24.9 %; MCH 28.3 pg (27.0-32.0); MCHC 30.6 g/dL (32.0-37.0); MCV 92.5 fL (80.0-97.0); Mean Platelet Volume 10.6 fL (9.5-12.2); Monocytes # (A) 0.82 X 10*3/uL (0.20-1.00); Monocytes % (A) 13.2 %; Neutrophils # (A) 3.63 X 10*3/uL (1.80-7.70); Neutrophils % (A) 58.7 %; Platelet Count 228 X 10*3/uL (140-440); RBC 4.27 X 10*6/uL (4.40-5.60); RDW 15.8 % (11.5-14.5); WBC 6.19 X 10*3/uL (4.50-10.00)
[2021-02-10 22:19] LABS: Hemoglobin A1C 6.2 % (4.0-6.0)
[2021-02-11 17:03] LABS: African American GFR (CKD) 97.1 (60.0-200.0); Albumin 4.3 g/dL (3.80-4.90); Albumin/Globulin Ratio 2.15 (1.60-3.17); Anion Gap 14.3 mmol/L (4.00-12.00); BUN/Creat Ratio 16.25 Ratio (12.00-20.00); Calcium 9.2 mg/dL (8.7-10.3); Carbon Dioxide 21.7 mmol/L (21.6-31.8); Chol/HDL Ratio 2.65; LDL Cholesterol,Calculated 71.4 mg/dL (0.0-131.0); Non-African American GFR(CKD) 83.8 (60.0-200.0); Potassium 4.7 mmol/L (3.5-5.5); Total Bilirubin 1.1 mg/dL (0.3-1.2); Total Protein 6.3 g/dL (6.2-8.2); VLDL Calculation 14.6 mg/dL (5.00-40.00)
== END | disposition home or self-care (01) ==
LOC: LABWHC1 09:15
PROVIDERS: ATTEND Student in an Organized Health Care Education/Training Program
DX: I25.10 Atherosclerotic heart disease of native coronary artery without angina pectoris (principal)
CPT/HCPCS: 36415; 80053; 80061; 83036; 83735; 83880; 84443; 85025

== ENCOUNTER → 2021-11-18 | Outpatient (CLI) | payer MEDICARE, BC ==
--- NOTE | 2021-11-18 10:55 | MR ---
EXAMINATION TYPE: MR angio head wo/w con DATE OF EXAM: 11/18/2021 COMPARISON: None HISTORY: Headache TECHNIQUE: Time of flight images focusing on the [place] of [place] were performed without contrast and with 10 mL intravenous Gadavist gadolinium contrast. FINDINGS: There is no sizable aneurysm sac or vascular malformation. Allograft there is a severe focal stenosis within the right posterior cerebral artery. No other stenoses are seen. There are no segmental occlu sions. IMPRESSION: 1. No aneurysm or AVM. 2. Focal stenosis in the right posterior cerebral artery.
--- NOTE | 2021-11-18 11:02 | MR ---
MRA neck HISTORY: Headache. Comparison: None TECHNIQUE: [id number] images of the arteries of the neck were obtained. The post processing was p erformed. MIPS images were included. FINDINGS: The brachiocephalic origins are widely patent. Significant stenosis in the proximal left subclavian a rtery cannot be excluded. The right vertebral artery is dominant. The right common and internal carotid arteries are widely patent without significant stenosis. There is a severe focal stenosis in the proximal left internal carotid artery. Left common carotid ar keo is widely patent. IMPRESSION: 1. Severe focal stenosis in the proximal left internal carotid artery. 2. Cannot exclude focal stenosis in the proximal left subclavian artery just proximal to the origin o f the left vertebral artery. The right vertebral artery is dominant 3. No significant stenosis of the right common or internal carotid artery.
== END | disposition home or self-care (01) ==
LOC: RADMRIMAIN 09:36
PROVIDERS: ATTEND Nurse Practitioner Family
DX: I66.21 Occlusion and stenosis of right posterior cerebral artery (principal)
CPT/HCPCS: 70546; 70549; A9585

== ENCOUNTER 2022-04-27 23:06 | Emergency (ER) | payer MEDICARE, BC ==
[2022-04-27 23:14] VITALS: BP 174/76; PULSE 78; RESP 18; TEMP 98.2
--- NOTE | 2022-04-27 23:35 | XR ---
EXAMINATION TYPE: XR chest 2V DATE OF EXAM: 04/27/2022 COMPARISON: 12/14/2020 HISTORY: Cough TECHNIQUE: FINDINGS: Heart is normal. There is blunting left costophrenic angle. There are no hilar masses. No h eart failure. The bony thorax is intact. IMPRESSION: There is chronic left pleural effusion without much change compared to old exam. No heart failure seen.
[2022-04-28] MEDS ORDERED: OSELTAMIVIR 75 MG CAP PO STA (00:33)
[2022-04-28] MEDS ORDERED: ALBUTEROL HFA INHALER INHALATION STA (00:33)
[2022-04-28] MEDS ORDERED: dexAMETHasone 2 MG TAB PO STA (00:33)
--- NOTE | 2022-04-28 00:35 | ED ---
General Adult HPI - General Chief complaint: Upper Respiratory Infection Stated complaint: Cough Time Seen by Provider: 04/28/22 00:08 Source: patient, family, RN notes reviewed, old records reviewed Mode of arrival: ambulatory Limitations: no limitations - History of Present Illness Initial comments: Patient is an 81-year-old male with past medical history remarkable for atrial fibrillation, CAD, cancer, hypertension who presents with multiple days of cold- like symptoms. Has been having a mildly productive cough, congestion, low-grade fevers. No known sick contacts. Took multiple COVID-19 test at home which were negative. Presents for further evaluation at this time. Denies any sick contacts. Denies nausea, vomiting, abdominal pain. Denies any diarrhea. Denies any chest pain. Denies shortness breath. Does endorse some wheezing. Presents for further evaluation at this time. - Related Data Home Medications Medication Instructions Recorded Confirmed Levothyroxine Sodium [Levoxyl] 75 mcg PO DAILY 07/22/18 11/01/20 Pantoprazole Sodium [Protonix] 40 mg PO DAILY 11/01/20 11/01/20 Previous Rx's Medication Instructions Recorded Aspirin 325 mg PO BID #60 tab 06/30/19 Acetaminophen Tab [Tylenol] 650 mg PO Q4HR PRN tab 11/08/20 Atorvastatin [Lipitor] 40 mg PO DAILY #30 tab 11/08/20 Clopidogrel [Plavix] 75 mg PO DAILY #30 tab 11/08/20 Furosemide [Lasix] 40 mg PO DAILY #5 tablet 11/08/20 Metoprolol Tartrate [Lopressor] 50 mg PO BID #60 tab 11/08/20 Potassium Chloride ER [K-Dur 10] 10 meq PO DAILY #5 tab 11/08/20 Tamsulosin [Flomax] 0.4 mg PO PC-BRKFST #30 cap.er.24h 11/08/20 polyethylene glycoL 3350 [Miralax] 17 gm PO DAILY PRN powd.pack 11/08/20 Cephalexin [Keflex] 500 mg PO Q8HR 7 Days #21 cap 11/09/20 Furosemide [Lasix] 40 mg PO DAILY #7 tablet 11/14/20 Potassium Chloride ER [K-Dur 10] 10 meq PO DAILY #7 tab 11/14/20 Furosemide [Lasix] 40 mg PO BID #60 tablet 11/16/20 Potassium Chloride ER [K-Dur 10] 10 meq PO BID #60 tab 11/16/20 Albuterol Inhaler [Ventolin Hfa 1 puff INHALATION TID PRN #8 gm 04/28/22 Inhaler] Oseltamivir [Tamiflu] 75 mg PO Q12HR 5 Days #10 cap 04/28/22 Allergies Allergy/AdvReac Type Severity Reaction Status Date / Time [id number] Reductase AdvReac Severe Rash/Hives Verified 04/27/22 23:14 Inhibitor [Facgqww-Kbl-Tro Reductase Inhibitor] Review of Systems ROS Statement: Those systems with pertinent positive or pertinent negative responses have been documented in the HPI. Review of Systems: CONST: Endorses fever EYES: Denies blurry vision ENT: Endorses nasal congestion C/V: Denies Chest pain RESP: Endorses cough GI: Denies abdominal pain : Denies dysuria SKIN: Denies rash. MSK: Denies joint pain. NEURO: Denies headache ROS Other: All systems not noted in ROS Statement are negative. Past Medical History Past Medical History: Atrial Fibrillation, Coronary Artery Disease (CAD), Cancer, Chest Pain / Angina, GERD/Reflux, Hyperlipidemia, Hypertension, Myocardial Infarction (CO), Osteoarthritis (OA), Prostate Disorder, Sleep Apnea/CPAP/BIPAP, Thyroid Disorder Additional Past Medical History / Comment(s): Hypothyroid, hyperactive bladder, A. fib (refuses anticoagulation). SEPTIC ARTHRITIS. diverticulosis History of Any Multi-Drug Resistant Organisms: None Reported Past Surgical History: Heart Catheterization, Tonsillectomy Additional Past Surgical History / Comment(s): radioactive seed implants for prostate cancer, cataracts removed-lens implants, bladder control device implanted 07-10-17 and removed 07-18-18, colonoscopy/polypectomy-benign. bilateral hip replaced. bone infection post op right hip. Past Anesthesia/Blood Transfusion Reactions: No Reported Reaction Additional Past Anesthesia/Blood Transfusion Reaction / Comment(s): has never had any blood transfusion Past Psychological History: No Psychological Hx Reported Smoking Status: Former smoker Past Alcohol Use History: Daily Past Drug Use History: None Reported - Past Family History Mother Family Medical History: Cancer Additional Family Medical History / Comment(s): from colon cancer at age 60 Father Family Medical History: Liver Disease Additional Family Medical History / Comment(s): from cirrhosis of the liver at age 59 they felt it was d/t farming chemicals 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 General Exam - General Exam Comments Initial Comments: General: Appears in no acute distress. HEAD: Normal with no signs of head trauma. EYES: EOMI ENT: Hearing grossly intact, normal oropharynx. RESPIRATORY: Mild central wheezing bilaterally. No rhonchi. No hypoxia. No increased work of breathing. C/V: Regular rate and rhythm. S1 and S2 auscultated. Peripheral pulses 2+ and intact throughout. ABD: Abd is soft, nontender, nondistended EXT: Normal range of motion, no obvious deformity SKIN: No rashes or lesions observed on exposed skin. NEURO: Alert and oriented 4. Limitations: no limitations Course Vital Signs 04/27/22 23:12 Temperature 98.2 F Pulse Rate 78 Respiratory 18 Rate Blood Pressure 174/76 O2 Sat by Pulse 95 Oximetry Medical Decision Making - Medical Decision Making Based on the patient's presentation and physical exam, I'm concerned for upper respiratory illness for the patient. Vital signs within acceptable limits. Chest x-ray was already obtained in triage. Chest x-ray shows no acute cardiopulmonary process. There is no acute infiltrate. There is improved left pleural effusion which is chronic. No bony traumatic injury. Viral swabs were also obtained while the patient was in triage and is positive for influenza A. Patient is negative for influenza B, RSV, Covid. I discussed results with the patient. He'll be given a single dose of steroids, and albuterol inhaler, as well as Tamiflu prescription. He was in agreement this plan. Strict return precautions were discussed. Recommended obtaining a pulse ox monitor oxygenation levels. There were in agreement this plan. I will provide the patient with a prescription for Tamiflu, albuterol. I instructed the patient to follow up with their PCP in the next 1-3 days. I explained that the patient should return to the emergency department if they experience any worsening symptoms. Strict return precautions were discussed with the patient. The patient expressed understanding of these instructions. I answered all questions that the patient had. The patient was discharged home in good condition with their prescriptions and follow up information. - Lab Data Lab Results 04/27/22 Range/Units 23:15 Influenza Type A (PCR) Detected A (Not Detectd) Influenza Type B (PCR) Not Detected (Not Detectd) RSV (PCR) Not Detected (Not Detectd) SARS-CoV-2 (PCR) Not Detected (Not Detectd) Disposition Clinical Impression: Influenza A, Bronchospasm Disposition: HOME SELF-CARE Condition: Good Instructions (If sedation given, give patient instructions): Influenza (ED), Upper Respiratory Infection (ED) Prescriptions: Oseltamivir [Tamiflu] 75 mg PO Q12HR 5 Days #10 cap Albuterol Inhaler [Ventolin Hfa Inhaler] 1 puff INHALATION TID PRN #8 gm PRN Reason: Wheezing Is patient prescribed a controlled substance at d/c from ED?: No Referrals: Cristo Lyn DO [Primary Care Provider] - 1-2 days Time of Disposition: 00:35
== END 2022-04-28 00:51 | disposition home or self-care (01) ==
LOC: EC 23:06
DX: J11.1 Influenza due to unidentified influenza virus with other respiratory manifestations (principal); I48.91 Unspecified atrial fibrillation; I11.9 Hypertensive heart disease without heart failure; I25.10 Atherosclerotic heart disease of native coronary artery without angina pectoris; K21.9 Gastro-esophageal reflux disease without esophagitis; E78.5 Hyperlipidemia, unspecified; I25.2 Old myocardial infarction; M19.90 Unspecified osteoarthritis, unspecified site; E03.9 Hypothyroidism, unspecified; G47.30 Sleep apnea, unspecified; Z87.891 Personal history of nicotine dependence; Z79.890 Hormone replacement therapy; Z79.82 Long term (current) use of aspirin; Z79.02 Long term (current) use of antithrombotics/antiplatelets; Z79.83 Long term (current) use of bisphosphonates; Z79.891 Long term (current) use of opiate analgesic; Z79.899 Other long term (current) drug therapy; Z88.8 Allergy status to other drugs, medicaments and biological substances; Z20.822 Contact with and (suspected) exposure to COVID-19
CPT/HCPCS: 71046; 87636; 99284

== ENCOUNTER 2023-01-03 19:56 | Emergency (ER) | payer MEDICARE, BC ==
[2023-01-03 20:02] VITALS: BP 184/79; PULSE 70; RESP 18; TEMP 97.6
--- NOTE | 2023-01-03 20:45 | ED ---
Abdominal Pain HPI - General Chief Complaint: Abdominal Pain Stated Complaint: Abd pain Time Seen by Provider: 01/03/23 20:13 Source: patient, RN notes reviewed Mode of arrival: ambulatory Limitations: no limitations - History of Present Illness Initial Comments: This is an 82-year-old male who presents to the emergency department for abdominal pain. States that he has had centralized abdominal pain starting this morning with associated nausea. Believes that the pain has started to get worse as the day has progressed. He has taken total of 80 mg of Protonix with no relief in symptoms. Denies any history of similar pains in the past. Denies any fevers or chills. He has not been complaining of any constipation, diarrhea, or urinary changes. Denies any fevers, chills, sore throat, cough, dyspnea, chest pain, palpitations, vomiting, diarrhea, back pain, or headaches. MD Complaint: abdominal pain - Related Data Home Medications Medication Instructions Recorded Confirmed Levothyroxine Sodium [Levoxyl] 75 mcg PO DAILY 07/22/18 01/03/23 Pantoprazole Sodium [Protonix] 40 mg PO DAILY 11/01/20 01/03/23 Albuterol Inhaler [Ventolin Hfa 2 puff INHALATION RT-Q4H PRN 01/03/23 01/03/23 Inhaler] Ascorbic Acid [Vitamin C] 1,000 mg PO DAILY 01/03/23 01/03/23 Aspirin EC [Ecotrin Low Dose] 81 mg PO DAILY 01/03/23 01/03/23 Astaxanthin 4 mg PO DAILY 01/03/23 01/03/23 Bitter Melon Supplement (Unknown 1 dose PO DAILY 01/03/23 01/03/23 Strength) Butterbur Supplement 1 dose PO DAILY 01/03/23 01/03/23 Calcium Carbonate [Calcium] 1,200 mg PO DAILY 01/03/23 01/03/23 Chlorella 500mg Supplement 500 mg PO DAILY 01/03/23 01/03/23 Cholecalciferol [Vitamin D3 (25 50 mcg PO DAILY 01/03/23 01/03/23 Mcg = 1000 Iu)] Chromemate Supplement 1 cap PO DAILY 01/03/23 01/03/23 Cilantro Supplement (Unknown 1 dose PO DAILY 01/03/23 01/03/23 Strength) L.acidoph,Paracasei, B.lactis 1 cap PO DAILY 01/03/23 01/03/23 [Probiotic] Loperamide HCl [Imodium A-D] 2 - 4 mg PO QID PRN 01/03/23 01/03/23 Lycopene 10 mg PO DAILY 01/03/23 01/03/23 Melatonin 5 mg PO HS 01/03/23 01/03/23 [place]-3 Fatty Acids [[place]-3] 1,000 mg PO DAILY 01/03/23 01/03/23 Pyridoxine HCl (Vitamin B6) 100 mg PO DAILY 01/03/23 01/03/23 [Vitamin B-6] Red Yeast Rice 600 mg PO DAILY 01/03/23 01/03/23 Sertraline [Zoloft] 100 mg PO DAILY 01/03/23 01/03/23 Thc Gummy 5mg 5 mg PO HS 01/03/23 01/03/23 Turmeric Root Extract [Turmeric] 500 mg PO DAILY 01/03/23 01/03/23 Ubidecarenone [Co Q-10] 300 mg PO DAILY 01/03/23 01/03/23 Zinc Gluconate [Zinc] 50 mg PO DAILY 01/03/23 01/03/23 Previous Rx's Medication Instructions Recorded Amoxic-Pot Clav 875-125Mg 1 tab PO Q12HR 10 Days #20 tab 01/03/23 [Augmentin 875-125] Ondansetron Odt [Zofran Odt] 4 mg PO Q8HR PRN #15 tab 01/03/23 Allergies Allergy/AdvReac Type Severity Reaction Status Date / Time Brjxscy-[id number] Reductase AdvReac Severe Rash/Hives Verified 01/03/23 21:45 Inhibitor [Xasyevo-Pap-Iif Reductase Inhibitor] Review of Systems ROS Statement: Those systems with pertinent positive or pertinent negative responses have been documented in the HPI. ROS Other: All systems not noted in ROS Statement are negative. Past Medical History Past Medical History: Atrial Fibrillation, Coronary Artery Disease (CAD), Cancer, Chest Pain / Angina, GERD/Reflux, Hyperlipidemia, Hypertension, Myocardial Infarction (SC), Osteoarthritis (OA), Prostate Disorder, Sleep Apnea/CPAP/BIPAP, Thyroid Disorder Additional Past Medical History / Comment(s): Hypothyroid, hyperactive bladder, A. fib (refuses anticoagulation). SEPTIC ARTHRITIS. diverticulosis History of Any Multi-Drug Resistant Organisms: None Reported Past Surgical History: Heart Catheterization, Tonsillectomy Additional Past Surgical History / Comment(s): radioactive seed implants for prostate cancer, cataracts removed-lens implants, bladder control device implanted 07-10-17 and removed 07-18-18, colonoscopy/polypectomy-benign. bilateral hip replaced. bone infection post op right hip. Past Anesthesia/Blood Transfusion Reactions: No Reported Reaction Additional Past Anesthesia/Blood Transfusion Reaction / Comment(s): has never had any blood transfusion Past Psychological History: No Psychological Hx Reported Smoking Status: Former smoker Past Alcohol Use History: Daily Past Drug Use History: None Reported - Past Family History Mother Family Medical History: Cancer Additional Family Medical History / Comment(s): from colon cancer at age 60 Father Family Medical History: Liver Disease Additional Family Medical History / Comment(s): from cirrhosis of the liver at age 59 they felt it was d/t farming chemicals 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 General Exam Limitations: no limitations General appearance: alert, in no apparent distress Head exam: Present: atraumatic, normocephalic, normal inspection Respiratory exam: Present: normal lung sounds bilaterally. Absent: respiratory distress, wheezes, rales, rhonchi, stridor Cardiovascular Exam: Present: regular rate, normal rhythm, normal heart sounds. Absent: systolic murmur, diastolic murmur, rubs, gallop, clicks GI/Abdominal exam: Present: soft, tenderness (periumbilical), normal bowel sounds. Absent: distended Neurological exam: Present: alert, oriented X3, CN II-XII intact Psychiatric exam: Present: normal affect, normal mood Skin exam: Present: warm, dry, intact, normal color. Absent: rash Course Vital Signs 01/03/23 19:56 Temperature 97.6 F Pulse Rate 70 Respiratory 18 Rate Blood Pressure 184/79 O2 Sat by Pulse 98 Oximetry Medical Decision Making - Medical Decision Making This is an 82-year-old male who presents to the emergency department for abdominal pain. Was pt. sent in by a medical professional or institution? @ -No Did you speak to anyone other than the patient for history? @ -No Did you review nursing and triage notes? @ -Yes, and I agree, it is accurate with regards to the patient's symptoms. Were old charts reviewed? @ -No Differential Diagnosis? @ -Differential Abdominal Pain Men: Appendicitis, cholecystitis, diverticulosis, ischemic bowel, pancreatitis, hepatitis, UTI, gastroenteritis, AAA, incarcerated hernia, bowel obstruction, constipation, inflammatory bowel, hepatitis, peptic ulcer disease, splenic infarction, perforated viscus, testicular torsion, this is not meant to be an all-inclusive list EKG interpreted by me (3pts min.)? @ -EKG interpreted by me demonstrating the following: Sinus rhythm. Ventricular rate 61 beats per minute, GA interval 141 ms, QRS duration 99 ms, QTC 392 ms. X-rays interpreted by me (1pt min.)? @ -Not obtained CT interpreted by me (1pt min.)? @ -Computed tomography scan of the abdomen and pelvis obtained. My interpretation identifies no evidence of free air. U/S interpreted by me (1pt. min.)? @ -Not obtained What testing was considered but not performed? (CT, X-rays, U/S, labs)? Why? @ -None What meds were considered but not given? Why? @ -None Did you discuss the management of the patient with other professionals? @ -No Did you reconcile home meds? @ -No Was smoking cessation discussed for >3mins.? @ -No Was critical care preformed (if so, how long)? @ -No Were there social determinants of health that impacted care today? How? (Homelessness, low income, unemployed, alcoholism, drug addiction, transportation, low edu. Level, literacy, decrease access to med. care, usp, rehab)? @ -No Was there de-escalation of care discussed even if they declined? (Discuss DNR or withdrawal of care, Hospice)? @ -No What co-morbidities impacted this encounter? (DM, HTN, Smoking, COPD, CAD, Cancer, CVA, Hep., AIDS, mental health diagnosis, sleep apnea, morbid obesity)? @ -CAD, HTN, HLD Was patient admitted / discharged? @ -Discharged. Lab work obtained revealing mild leukocytosis and no other actionable findings. The mild elevation in potassium was related to hemolysis. Computed tomography scan of the abdomen and pelvis obtained revealing a thickened and inflamed ileal bowel loop consistent with nonspecific enteritis. Findings reviewed with the patient. Advised that the enteritis may be inflammatory or infectious in nature. Given that he has a mild elevation in his white blood cell count, along with his multiple comorbidities, we'll treat patient for possible infection. Prescription for Augmentin provided with dosing instructions reviewed. Initial dose administered in the emergency department. He was also given a prescription for Zofran, as he had been feeling nauseous earlier in the day as well. Otherwise advised close follow-up with his primary care provider. Undiagnosed new problem with uncertain prognosis? @ -None Drug Therapy requiring intensive monitoring for toxicity (Heparin, Nitro, Insulin, Cardizem)? @ -None Were any procedures done? @ -None Diagnosis/symptom? @ -Enteritis, nausea Acute, or Chronic, or Acute on Chronic? @ -Acute Uncomplicated (without systemic symptoms) or Complicated (systemic symptoms)? @ -Uncomplicated Side effects of treatment? @ -None Exacerbation, Progression, or Severe Exacerbation] @ -Not applicable Poses a threat to life or bodily function? @ -No Return precautions reviewed in depth, the patient is instructed to return to the emergency department with any new, worsening, or concerning symptoms. Patient verbalized understanding. This case was discussed in detail with the attending ED physician, Dr. Hanson. Presentation, findings, and treatment plan discussed in detail as well. - Lab Data Result diagrams: 01/03/23 21:05 01/03/23 21:05 Lab Results 01/03/23 01/03/23 01/03/23 Range/Units 21:05 21:05 21:05 WBC 14.7 H (3.8-10.6) k/uL RBC 4.81 (4.30-5.90) m/uL Hgb 14.9 (13.0-17.5) gm/dL Hct 45.8 (39.0-53.0) % MCV 95.2 (80.0-100.0) fL MCH 31.0 (25.0-35.0) pg MCHC 32.6 (31.0-37.0) g/dL RDW 14.2 (11.5-15.5) % Plt Count 200 (150-450) k/uL MPV 8.5 Neutrophils % 90 % Lymphocytes % 5 % Monocytes % 4 % Eosinophils % 1 % Basophils % 0 % Neutrophils # 13.2 H (1.3-7.7) k/uL Lymphocytes # 0.7 L (1.0-4.8) k/uL Monocytes # 0.5 (0-1.0) k/uL Eosinophils # 0.1 (0-0.7) k/uL Basophils # 0.0 (0-0.2) k/uL Sodium 132 L (137-145) mmol/L Potassium 5.2 H (3.5-5.1) mmol/L Chloride 99 (98-107) mmol/L Carbon Dioxide 25 (22-30) mmol/L Anion Gap 8 mmol/L BUN 17 (9-20) mg/dL Creatinine 0.67 (0.66-1.25) mg/dL Est GFR (CKD-EPI)AfAm >90 (>60 ml/min/1.73 sqM) Est GFR (CKD-EPI)NonAf 89 (>60 ml/min/1.73 sqM) Glucose 131 H (74-99) mg/dL Plasma Lactic Acid Franky 1.8 (0.7-2.0) mmol/L Calcium 8.7 (8.4-10.2) mg/dL Total Bilirubin 1.3 (0.2-1.3) mg/dL AST 44 (17-59) U/L ALT 22 (4-49) U/L Alkaline Phosphatase 70 (38-126) U/L Total Protein 7.2 (6.3-8.2) g/dL Albumin 4.1 (3.5-5.0) g/dL Amylase 71 (30-110) U/L Lipase 74 (23-300) U/L Urine Color Urine Appearance (Clear) Urine pH (5.0-8.0) Ur Specific Edgar (1.001-1.035) Urine Glucose (UA) (Negative) Urine Ketones (Negative) Urine Blood (Negative) Urine Nitrite (Negative) Urine Bilirubin (Negative) Urine Urobilinogen (<2.0) mg/dL Ur Leukocyte Esterase (Negative) Urine RBC (0-5) /hpf Urine WBC (0-5) /hpf Urine Mucus (None) /hpf 01/03/23 Range/Units 22:06 WBC (3.8-10.6) k/uL RBC (4.30-5.90) m/uL Hgb (13.0-17.5) gm/dL Hct (39.0-53.0) % MCV (80.0-100.0) fL MCH (25.0-35.0) pg MCHC (31.0-37.0) g/dL RDW (11.5-15.5) % Plt Count (150-450) k/uL MPV Neutrophils % % Lymphocytes % % Monocytes % % Eosinophils % % Basophils % % Neutrophils # (1.3-7.7) k/uL Lymphocytes # (1.0-4.8) k/uL Monocytes # (0-1.0) k/uL Eosinophils # (0-0.7) k/uL Basophils # (0-0.2) k/uL Sodium (137-145) mmol/L Potassium (3.5-5.1) mmol/L Chloride (98-107) mmol/L Carbon Dioxide (22-30) mmol/L Anion Gap mmol/L BUN (9-20) mg/dL Creatinine (0.66-1.25) mg/dL Est GFR (CKD-EPI)AfAm (>60 ml/min/1.73 sqM) Est GFR (CKD-EPI)NonAf (>60 ml/min/1.73 sqM) Glucose (74-99) mg/dL Plasma Lactic Acid Franky (0.7-2.0) mmol/L Calcium (8.4-10.2) mg/dL Total Bilirubin (0.2-1.3) mg/dL AST (17-59) U/L ALT (4-49) U/L Alkaline Phosphatase (38-126) U/L Total Protein (6.3-8.2) g/dL Albumin (3.5-5.0) g/dL Amylase (30-110) U/L Lipase (23-300) U/L Urine Color Yellow Urine Appearance Clear (Clear) Urine pH 6.5 (5.0-8.0) Ur Specific Edgar 1.025 (1.001-1.035) Urine Glucose (UA) Negative (Negative) Urine Ketones 1+ H (Negative) Urine Blood Trace H (Negative) Urine Nitrite Negative (Negative) Urine Bilirubin Negative (Negative) Urine Urobilinogen 0.2 (<2.0) mg/dL Ur Leukocyte Esterase Negative (Negative) Urine RBC 10 H (0-5) /hpf Urine WBC 1 (0-5) /hpf Urine Mucus Rare H (None) /hpf - Radiology Data Radiology results: report reviewed, image reviewed Disposition Clinical Impression: Enteritis, Nausea Disposition: HOME SELF-CARE Instructions (If sedation given, give patient instructions): Enteritis (ED) Additional Instructions: Return to the emergency department with any new, worsening, or concerning symptoms. Take the antibiotic as prescribed for 10 days. You can take the Zofran up to every 8 hours as needed for nausea and vomiting. Slowly advance your diet as tolerated. Follow up with your primary care provider in 1-2 days. Prescriptions: Amoxic-Pot Clav 875-125Mg [Augmentin 875-125] 1 tab PO Q12HR 10 Days #20 tab Ondansetron Odt [Zofran Odt] 4 mg PO Q8HR PRN #15 tab PRN Reason: Nausea And Vomiting Is patient prescribed a controlled substance at d/c from ED?: No Referrals: Cristo Lyn DO [Primary Care Provider] - 1-2 days
[2023-01-03 21:48] LABS: Basophils % (A) 0 %; Eosinophils # (A) 0.1 k/uL (0-0.7); Eosinophils % (A) 1 %; HCT 45.8 % (39.0-53.0); HGB 14.9 gm/dL (13.0-17.5); Lymphocytes # (A) 0.7 k/uL (1.0-4.8); Lymphocytes % (A) 5 %; MCHC 32.6 g/dL (31.0-37.0); MCV 95.2 fL (80.0-100.0); Mean Platelet Volume 8.5; Monocytes # (A) 0.5 k/uL (0-1.0); Monocytes % (A) 4 %; Neutrophils # (A) 13.2 k/uL (1.3-7.7); Neutrophils % (A) 90 %; Platelet Count 200 k/uL (150-450); RBC 4.81 m/uL (4.30-5.90); RDW 14.2 % (11.5-15.5); WBC 14.7 k/uL (3.8-10.6)
[2023-01-03 22:08] LABS: ALT 22 U/L (4-49); African American GFR (CKD) >90 (>60 ml/min/1.73 sqM); Albumin 4.1 g/dL (3.5-5.0); Amylase 71 U/L (30-110); Anion Gap 8 mmol/L; Blood Urea Nitrogen 17 mg/dL (9-20); Calcium 8.7 mg/dL (8.4-10.2); Carbon Dioxide 25 mmol/L (22-30); Chloride 99 mmol/L (98-107); Glucose 131 mg/dL (74-99); Lipase 74 U/L (23-300); Non-African American GFR(CKD) 89 (>60 ml/min/1.73 sqM); Sodium 132 mmol/L (137-145); Total Bilirubin 1.3 mg/dL (0.2-1.3); Total Protein 7.2 g/dL (6.3-8.2)
[2023-01-03 22:09] LABS: AST 44 U/L (17-59); Potassium 5.2 mmol/L (3.5-5.1)
[2023-01-03 22:10] LABS: Alkaline Phosphatase 70 U/L (38-126)
[2023-01-03 22:37] LABS: Appearance,Urine Clear (Clear); Color,Urine Yellow; Specific Gravity,Urine 1.025 (1.001-1.035)
[2023-01-03 22:38] LABS: Bilirubin,Urine Negative (Negative); Blood,Urine Trace (Negative); Glucose,Urine (UA) Negative (Negative); Ketones,Urine 1+ (Negative); Leukocyte Esterase,Urine Negative (Negative); Nitrite,Urine Negative (Negative); PH, Urine 6.5 (5.0-8.0); RBC,Urine 10 /hpf (0-5); Urobilinogen,Urine 0.2 mg/dL (<2.0); WBC,Urine 1 /hpf (0-5)
[2023-01-03 22:39] LABS: Mucus,Urine Rare /hpf
--- NOTE | 2023-01-03 23:31 | CT ---
EXAM: CT Abdomen and Pelvis With Intravenous Contrast CLINICAL HISTORY: ITS.REASON CT Reason: abdominal pain, acute, nonlocalized TECHNIQUE: Axial computed tomography images of the abdomen and pelvis with intravenous contrast. CTDI is 19.5 mGy and DLP is 1208 mGy-cm. This CT exam was performed using one or more of the following dose reduction techniques: automated exposure control, adjustment of the mA and/or kV according to patient size, and/or use of iterative reconstruction technique. COMPARISON: No relevant prior studies available. FINDINGS: Pleural space: Small left pleural effusion. Heart: Cardiomegaly. Mediastinum: A tiny hiatal hernia. ABDOMEN: Liver: Unremarkable. Gallbladder and bile ducts: Unremarkable. Pancreas: Unremarkable. Spleen: Unremarkable. Adrenals: Unremarkable. Kidneys and ureters: Cortical cysts bilaterally in the kidneys. No hydronephrosis. Stomach and bowel: Thickened and inflamed ileal bowel loop consistent with nonspecific enteritis. Right inguinal hernia containing multiple loops of nonobstructed small bowel and fluid. Colonic diverticulosis without diverticulitis. PELVIS: Appendix: No findings to suggest acute appendicitis. Bladder: Unremarkable. Reproductive: Brachytherapy beads within the prostate. ABDOMEN and PELVIS: Intraperitoneal space: Unremarkable. No free air. No significant fluid collection. Bones/joints: Bilateral hip arthroplasties. Degenerative changes within the spine. Soft tissues: Fat-containing left inguinal hernia. Vasculature: Aortobiiliac atherosclerotic calcifications. Lymph nodes: Unremarkable. IMPRESSION: 1. Thickened and inflamed ileal bowel loop consistent with nonspecific enteritis. 2. Right inguinal hernia containing multiple loops of nonobstructed small bowel and fluid. 3. Fat-containing left inguinal hernia. 4. Small left pleural effusion. 5. Colonic diverticulosis without diverticulitis.
[2023-01-03] MEDS ORDERED: AMOXIC-POT CLAV 875-125MG 1 EACH TAB PO STA (23:44)
[2023-01-03] MEDS ORDERED: ONDANSETRON 4 MG ODT STARTER PACK 2 TAB BTL PO STA (23:45)
== END 2023-01-04 00:57 | disposition home or self-care (01) ==
LOC: EC 19:56
DX: K52.9 Noninfective gastroenteritis and colitis, unspecified (principal); R11.0 Nausea; K57.30 Diverticulosis of large intestine without perforation or abscess without bleeding; K40.90 Unilateral inguinal hernia, without obstruction or gangrene, not specified as recurrent; J90 Pleural effusion, not elsewhere classified; I48.91 Unspecified atrial fibrillation; I25.10 Atherosclerotic heart disease of native coronary artery without angina pectoris; K21.9 Gastro-esophageal reflux disease without esophagitis; I10 Essential (primary) hypertension; I25.2 Old myocardial infarction; M19.90 Unspecified osteoarthritis, unspecified site; G47.30 Sleep apnea, unspecified; E07.9 Disorder of thyroid, unspecified; Z87.891 Personal history of nicotine dependence; Z79.1 Long term (current) use of non-steroidal anti-inflammatories (NSAID); Z79.82 Long term (current) use of aspirin; Z79.890 Hormone replacement therapy; Z79.899 Other long term (current) drug therapy; Z88.8 Allergy status to other drugs, medicaments and biological substances
CPT/HCPCS: 36415; 93005; 80053; 82150; 83605; 83690; 85025; 81001; 74177; 99284; Q9967

== ENCOUNTER → 2023-04-17 | Outpatient (CLI) | payer MEDICARE, BC ==
[2023-04-17 11:15] LABS: AST 27 U/L (17-59); African American GFR (CKD) 89 (>60 ml/min/1.73 sqM); Albumin 3.9 g/dL (3.5-5.0); Albumin/Globulin Ratio 1.4; Alkaline Phosphatase 77 U/L (38-126); Anion Gap 9 mmol/L; Blood Urea Nitrogen 19 mg/dL (9-20); Calcium 8.9 mg/dL (8.4-10.2); Carbon Dioxide 26 mmol/L (22-30); Chloride 102 mmol/L (98-107); Globulin 2.8 g/dL; Glucose 99 mg/dL (74-99); Non-African American GFR(CKD) 77 (>60 ml/min/1.73 sqM); Potassium 4.5 mmol/L (3.5-5.1); Sodium 137 mmol/L (137-145); Total Bilirubin 0.6 mg/dL (0.2-1.3); Total Protein 6.7 g/dL (6.3-8.2)
[2023-04-17 11:16] LABS: ALT 18 U/L (4-49)
[2023-04-17 11:24] LABS: NT-Pro-B-Type Natriuretic Pept 1690 pg/mL
[2023-04-18 01:40] LABS: Chol/HDL Ratio 4.16 Ratio; LDL Cholesterol,Calculated 143.8 mg/dL (0.0-131.0)
== END | disposition home or self-care (01) ==
LOC: LABWHC1 09:37
PROVIDERS: ATTEND Internal Medicine Interventional Cardiology
DX: I11.0 Hypertensive heart disease with heart failure (principal); I50.32 Chronic diastolic (congestive) heart failure; I34.0 Nonrheumatic mitral (valve) insufficiency; I48.11 Longstanding persistent atrial fibrillation
CPT/HCPCS: 36415; 80053; 80061; 83880

== ENCOUNTER 2024-02-07 10:09 | Inpatient (IN) | payer MEDICARE, BC ==
--- NOTE | 2024-02-07 10:40 | ED ---
Altered Mental Status HPI - General Chief Complaint: Altered Mental Status Stated Complaint: AMS Time Seen by Provider: 02/07/24 10:29 Source: patient, RN notes reviewed, old records reviewed Mode of arrival: ambulatory Limitations: no limitations - History of Present Illness Initial Comments: This Is a 83-year-old male with declining mental status for 3 to 4 days. At times of not acting appropriate, not responding appropriate per the . Declining mental status and patient was sent into the ER today by primary care for evaluation of CVA MD Complaint: altered mental status, confusion, weakness -: days(s) (4) Severity: moderate Consistency of Symptoms: waxing and waning Associated Symptoms: denies other symptoms Treatments Prior to Arrival: other pre-hospital medication (0) - Related Data Home Medications Medication Instructions Recorded Confirmed Levothyroxine Sodium [Levoxyl] 75 mcg PO DAILY 07/22/18 02/07/24 Pantoprazole Sodium [Protonix] 40 mg PO DAILY 11/01/20 02/07/24 Ascorbic Acid [Vitamin C] 1,000 mg PO DAILY 01/03/23 02/07/24 Aspirin EC [Ecotrin Low Dose] 81 mg PO DAILY 01/03/23 02/07/24 Astaxanthin 4 mg PO DAILY 01/03/23 02/07/24 Bitter Melon Supplement (Unknown 1 dose PO DAILY 01/03/23 02/07/24 Strength) Butterbur Supplement 1 dose PO DAILY 01/03/23 02/07/24 Calcium Carbonate [Calcium] 1,200 mg PO DAILY 01/03/23 02/07/24 Chlorella 500mg Supplement 500 mg PO DAILY 01/03/23 02/07/24 Cholecalciferol [Vitamin D3 (25 50 mcg PO DAILY 01/03/23 02/07/24 Mcg = 1000 Iu)] Chromemate Supplement 1 cap PO DAILY 01/03/23 02/07/24 Cilantro Supplement (Unknown 1 dose PO DAILY 01/03/23 02/07/24 Strength) L.acidoph,Paracasei, B.lactis 1 cap PO DAILY 01/03/23 02/07/24 [Probiotic] Loperamide HCl [Imodium A-D] 2 - 4 mg PO QID PRN 01/03/23 02/07/24 Lycopene 10 mg PO DAILY 01/03/23 02/07/24 Melatonin 5 mg PO HS 01/03/23 02/07/24 [place]-3 Fatty Acids [[place]-3] 1,000 mg PO DAILY 01/03/23 02/07/24 Pyridoxine HCl (Vitamin B6) 100 mg PO DAILY 01/03/23 02/07/24 [Vitamin B-6] Red Yeast Rice 600 mg PO DAILY 01/03/23 02/07/24 Sertraline [Zoloft] 100 mg PO DAILY 01/03/23 02/07/24 Thc Gummy 5mg 5 mg PO HS 01/03/23 02/07/24 Turmeric Root Extract [Turmeric] 500 mg PO DAILY 01/03/23 02/07/24 Ubidecarenone [Co Q-10] 300 mg PO DAILY 01/03/23 02/07/24 Zinc Gluconate [Zinc] 50 mg PO DAILY 01/03/23 02/07/24 Imiquimod [Aldara] 1 packet TOPICAL DIRECTED 02/07/24 02/07/24 Losartan [Cozaar] 25 mg PO DAILY 02/07/24 02/07/24 Allergies Allergy/AdvReac Type Severity Reaction Status Date / Time Aotlslz-SES-EoR Reductase AdvReac Severe Rash/Hives Verified 02/07/24 10:26 Inhibitor [Dzbnbdp-Voy-Wku Reductase Inhibitor] Review of Systems ROS Statement: Those systems with pertinent positive or pertinent negative responses have been documented in the HPI. ROS Other: All systems not noted in ROS Statement are negative. Past Medical History Past Medical History: Atrial Fibrillation, Coronary Artery Disease (CAD), Cancer, Chest Pain / Angina, GERD/Reflux, Hyperlipidemia, Hypertension, Myocardial Infarction (OH), Osteoarthritis (OA), Prostate Disorder, Sleep Apnea/CPAP/BIPAP, Thyroid Disorder Additional Past Medical History / Comment(s): Hypothyroid, hyperactive bladder, A. fib (refuses anticoagulation). SEPTIC ARTHRITIS. diverticulosis History of Any Multi-Drug Resistant Organisms: None Reported Past Surgical History: Heart Catheterization, Tonsillectomy Additional Past Surgical History / Comment(s): radioactive seed implants for prostate cancer, cataracts removed-lens implants, bladder control device implanted 07-10-17 and removed 07-18-18, colonoscopy/polypectomy-benign. bilateral hip replaced. bone infection post op right hip. Past Anesthesia/Blood Transfusion Reactions: No Reported Reaction Additional Past Anesthesia/Blood Transfusion Reaction / Comment(s): has never had any blood transfusion Past Psychological History: No Psychological Hx Reported Smoking Status: Former smoker Past Alcohol Use History: Daily Past Drug Use History: None Reported - Past Family History Mother Family Medical History: Cancer Additional Family Medical History / Comment(s): from colon cancer at age 60 Father Family Medical History: Liver Disease Additional Family Medical History / Comment(s): from cirrhosis of the liver at age 59 they felt it was d/t farming chemicals 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 General Exam Limitations: no limitations, altered mental status General appearance: alert, in no apparent distress, anxious Head exam: Present: atraumatic, normocephalic, normal inspection Eye exam: Present: normal appearance, PERRL, EOMI. Absent: scleral icterus, conjunctival injection, periorbital swelling ENT exam: Present: normal exam, mucous membranes moist Neck exam: Present: normal inspection. Absent: tenderness, meningismus, lymphadenopathy Respiratory exam: Present: normal lung sounds bilaterally. Absent: respiratory distress, wheezes, rales, rhonchi, stridor Cardiovascular Exam: Present: regular rate, normal rhythm, normal heart sounds. Absent: systolic murmur, diastolic murmur, rubs, gallop, clicks GI/Abdominal exam: Present: soft, normal bowel sounds. Absent: distended, tenderness, guarding, rebound, rigid Extremities exam: Present: normal inspection, full ROM, normal capillary refill. Absent: tenderness, pedal edema, joint swelling, calf tenderness Back exam: Present: normal inspection Neurological exam: Present: alert, oriented X3, CN II-XII intact Psychiatric exam: Present: normal affect, normal mood Skin exam: Present: warm, dry, intact, normal color. Absent: rash Course Vital Signs 02/07/24 02/07/24 02/07/24 10:22 11:30 13:30 Temperature 98.2 F Pulse Rate 56 L 54 L 56 L Respiratory 18 18 18 Rate Blood Pressure 149/71 134/65 134/66 O2 Sat by Pulse 97 98 98 Oximetry 02/07/24 02/07/24 02/07/24 15:00 18:07 20:25 Temperature 98.5 F Pulse Rate 55 L 51 L 59 L Respiratory 16 17 18 Rate Blood Pressure 158/78 164/81 169/89 O2 Sat by Pulse 97 98 98 Oximetry - Reevaluation(s) Reevaluation #1: 02/07/24 14:42 Records reviewed Reevaluation #2: 02/07/24 14:42 thinks patient symptoms may be mildly improved Reevaluation #3: 02/07/24 14:42 Informed of results and questions answered Reevaluation #4: Was pt. sent in by a medical professional or institution (, [facility], [facility], urgent care, hospital, or snf...) When possible be specific @ -no Did you speak to anyone other than the patient for history (EMS, parent, family, police, friend...)? What history was obtained from this source @ -no Did you review nursing and triage notes (agree or disagree)? Why? @ -agree Are old charts reviewed (outside hosp., previous admission, EMS record, old EKG, old radiological studies, urgent care reports/EKG's, snf records)? Report findings @ -yes Differential Diagnosis (chest pain, altered mental status, abdominal pain women, abdominal pain men, vaginal bleeding, weakness, fever, dyspnea, syncope, headache, dizziness, GI bleed, back pain, seizure, CVA, palpatations, mental health, musculoskeletal)? @ -prior EKG interpreted by me (3pts min.). @ -yes X-rays interpreted by me (1pt min.). @ -no CT interpreted by me (1pt min.). @ -Yes negative for acute disease U/S interpreted by me (1pt. min.). @ -no What testing was considered but not performed or refused? (CT, X-rays, U/S, labs)? Why? @ -none What meds were considered but not given or refused? Why? @ -none Did you discuss the management of the patient with other professionals (professionals i.e. , [facility], [facility] [facility], lab, RT, psych nurse, manager social responsibility, senior marketing manager, teacher, job placement officer, window caser)? Give summary @ -no Was smoking cessation discussed for >3mins.? @ -no Was critical care preformed (if so, how long)? @ -yes31 Were there social determinants of health that impacted care today? How? (Homelessness, low income, unemployed, alcoholism, drug addiction, transportation, low edu. Level, literacy, decrease access to med. care, retirement, rehab)? @ -none Was there de-escalation of care discussed even if they declined (Discuss DNR or withdrawal of care, Hospice)? DNR status @ -no What co-morbidities impacted this encounter? (DM, HTN, Smoking, COPD, CAD, Cancer, CVA, ARF, Chemo, Hep., AIDS, mental health diagnosis, sleep apnea, morbid obesity)? @ -none Was patient admitted / discharged? Hospital course, mention meds given and route, prescriptions, significant lab abnormalities, going to OR and other pertinent info. @ - 83 Male to the ER for evaluation patient presents today for evaluation of altered mental status likely CVA changes, patient has significant findings found on CT brain will consult neurology, patient also has low sodium will improve hydration and will admit for further evaluation and monitoring Evaluation Undiagnosed new problem with uncertain prognosis? @ -no Drug Therapy requiring intensive monitoring for toxicity (Heparin, Nitro, Insulin, Cardizem)? @ -no Were any procedures done? @ -no Diagnosis/symptom? @ -Altered mental status CVA Acute, or Chronic, or Acute on Chronic? @ -Acute Uncomplicated (without systemic symptoms) or Complicated (systemic symptoms)? @ -Complicated Side effects of treatment? @ -no Exacerbation, Progression, or Severe Exacerbation? @ -exacerbation Poses a threat to life or bodily function? How? (Chest pain, [place], [place], pneumonia, PE, COPD, DKA, ARF, appy, cholecystitis, CVA, Diverticulitis, Homicidal, Suicidal, threat to staff... and all critical care pts) @ -yes extremes of age Reevaluation #5: 02/07/24 14:42 Spoke with [facility] will admit this patient - Consultations Consultation #1: Spoke with admitting physicians who agreed to admit this patient Medical Decision Making - Medical Decision Making 83 Male to the ER for evaluation patient presents today for evaluation of altered mental status likely CVA changes, patient has significant findings found on CT brain will consult neurology, patient also has low sodium will improve hydration and will admit for further evaluation and monitoring - Lab Data Result diagrams: 02/12/24 08:50 02/14/24 06:10 Lab Results 02/07/24 02/07/24 02/07/24 Range/Units 10:45 10:45 10:45 WBC 2.5 L (3.8-10.6) k/uL RBC 4.60 (4.30-5.90) m/uL Hgb 13.7 (13.0-17.5) gm/dL Hct 42.5 (39.0-53.0) % MCV 92.4 (80.0-100.0) fL MCH 29.9 (25.0-35.0) pg MCHC 32.3 (31.0-37.0) g/dL RDW 13.6 (11.5-15.5) % Plt Count 176 (150-450) k/uL MPV 7.7 Neutrophils % 54 % Lymphocytes % 32 % Monocytes % 10 % Eosinophils % 0 % Basophils % 0 % Neutrophils # 1.4 (1.3-7.7) k/uL Lymphocytes # 0.8 L (1.0-4.8) k/uL Monocytes # 0.3 (0-1.0) k/uL Eosinophils # 0.0 (0-0.7) k/uL Basophils # 0.0 (0-0.2) k/uL PT 11.4 (10.0-12.5) sec INR 1.0 (<1.2) APTT 29.3 (22.0-30.0) sec Sodium 126 L (137-145) mmol/L Potassium 4.7 (3.5-5.1) mmol/L Chloride 97 L (98-107) mmol/L Carbon Dioxide 23 (22-30) mmol/L Anion Gap 6 mmol/L BUN 15 (9-20) mg/dL Creatinine 0.70 (0.66-1.25) mg/dL Est GFR (CKD-EPI)AfAm >90 (>60 ml/min/1.73 sqM) Est GFR (CKD-EPI)NonAf 87 (>60 ml/min/1.73 sqM) Glucose 95 (74-99) mg/dL Calcium 8.3 L (8.4-10.2) mg/dL Total Bilirubin 0.7 (0.2-1.3) mg/dL AST 38 (17-59) U/L ALT 20 (4-49) U/L Alkaline Phosphatase 78 (38-126) U/L Creatine Kinase 92 (55-170) U/L Troponin I (0.000-0.034) ng/mL Total Protein 6.3 (6.3-8.2) g/dL Albumin 3.7 (3.5-5.0) g/dL Serum Alcohol mg/dL 02/07/24 02/07/24 Range/Units 10:45 14:01 WBC (3.8-10.6) k/uL RBC (4.30-5.90) m/uL Hgb (13.0-17.5) gm/dL Hct (39.0-53.0) % MCV (80.0-100.0) fL MCH (25.0-35.0) pg MCHC (31.0-37.0) g/dL RDW (11.5-15.5) % Plt Count (150-450) k/uL MPV Neutrophils % % Lymphocytes % % Monocytes % % Eosinophils % % Basophils % % Neutrophils # (1.3-7.7) k/uL Lymphocytes # (1.0-4.8) k/uL Monocytes # (0-1.0) k/uL Eosinophils # (0-0.7) k/uL Basophils # (0-0.2) k/uL PT (10.0-12.5) sec INR (<1.2) APTT (22.0-30.0) sec Sodium (137-145) mmol/L Potassium (3.5-5.1) mmol/L Chloride (98-107) mmol/L Carbon Dioxide (22-30) mmol/L Anion Gap mmol/L BUN (9-20) mg/dL Creatinine (0.66-1.25) mg/dL Est GFR (CKD-EPI)AfAm (>60 ml/min/1.73 sqM) Est GFR (CKD-EPI)NonAf (>60 ml/min/1.73 sqM) Glucose (74-99) mg/dL Calcium (8.4-10.2) mg/dL Total Bilirubin (0.2-1.3) mg/dL AST (17-59) U/L ALT (4-49) U/L Alkaline Phosphatase (38-126) U/L Creatine Kinase (55-170) U/L Troponin I <0.012 (0.000-0.034) ng/mL Total Protein (6.3-8.2) g/dL Albumin (3.5-5.0) g/dL Serum Alcohol <10 mg/dL - EKG Data -: EKG Interpreted by Me (She is A-fib 55 QRS 94 QTc 437) - Radiology Data Radiology results: report reviewed (X-ray CT brain negative for acute disease CT angio possible occlusion ), image reviewed Disposition Clinical Impression: Altered mental status, CVA (cerebral vascular accident), Hyponatremia, Delirium due to general medical condition Disposition: ADMITTED IP TO THIS [facility] Condition: Serious Is patient prescribed a controlled substance at d/c from ED?: No Time of Disposition: 14:20
[2024-02-07] MEDS: SODIUM CHLORIDE 0.9% 1,000 ML IV STA (11:32)
[2024-02-07 11:35] LABS: Basophils % (A) 0 %; Eosinophils % (A) 0 %; HCT 42.5 % (39.0-53.0); HGB 13.7 gm/dL (13.0-17.5); Lymphocytes # (A) 0.8 k/uL (1.0-4.8); Lymphocytes % (A) 32 %; MCH 29.9 pg (25.0-35.0); MCHC 32.3 g/dL (31.0-37.0); MCV 92.4 fL (80.0-100.0); Mean Platelet Volume 7.7; Monocytes # (A) 0.3 k/uL (0-1.0); Monocytes % (A) 10 %; Neutrophils # (A) 1.4 k/uL (1.3-7.7); Neutrophils % (A) 54 %; Platelet Count 176 k/uL (150-450); RDW 13.6 % (11.5-15.5); WBC 2.5 k/uL (3.8-10.6)
[2024-02-07 11:48] LABS: Partial Thromboplastin Time 29.3 sec (22.0-30.0); Prothrombin Time 11.4 sec (10.0-12.5)
[2024-02-07 11:56] LABS: ALT 20 U/L (4-49); AST 38 U/L (17-59); African American GFR (CKD) >90 (>60 ml/min/1.73 sqM); Albumin 3.7 g/dL (3.5-5.0); Alkaline Phosphatase 78 U/L (38-126); Anion Gap 6 mmol/L; Blood Urea Nitrogen 15 mg/dL (9-20); Calcium 8.3 mg/dL (8.4-10.2); Carbon Dioxide 23 mmol/L (22-30); Chloride 97 mmol/L (98-107); Creatine Kinase 92 U/L (55-170); Glucose 95 mg/dL (74-99); Non-African American GFR(CKD) 87 (>60 ml/min/1.73 sqM); Potassium 4.7 mmol/L (3.5-5.1); Sodium 126 mmol/L (137-145); Total Bilirubin 0.7 mg/dL (0.2-1.3); Total Protein 6.3 g/dL (6.3-8.2)
--- NOTE | 2024-02-07 12:06 | XR ---
EXAMINATION TYPE: XR chest 2V DATE OF EXAM: 02/07/2024 11:30 AM CLINICAL INDICATION: Male, 83 years old with history of altered mental status; [facility] COMPARISON: Chest radiographs from 04/27/2022 TECHNIQUE: XR chest 2V Frontal view of the chest. FINDINGS: Lungs/Pleura: There is no evidence of pleural effusion, focal consolidation, or pneumothorax. Pulmonary vascularity: Unremarkable. Heart/mediastinum: Cardiomediastinal silhouette is unremarkable. Left atrial appendage occlusion patrick ce is present. Musculoskeletal: No acute osseous pathology. Midline sternotomy wires are noted. Other findings: None Lines/Tubes: IMPRESSION: No acute cardiopulmonary disease/process.
--- NOTE | 2024-02-07 13:45 | CT ---
EXAMINATION TYPE: CT brain wo con DATE OF EXAM: 02/07/2024 COMPARISON: 11/01/2019 HISTORY: AMS. sent by PCP to r/o CVA CT DLP: 2431.2 total mGycm Automated exposure control for dose reduction was used. FINDINGS: Moderate degenerative change with low attenuation in the white matter most typical remote microvascul ar ischemia. Orbits symmetric. Intracranial atherosclerotic changes. Calvarium intact. There is a bon y spur off the nasal septum narrowing the right nasal passage. IMPRESSION: DEGENERATIVE CHANGES WITH NO ACUTE HEMORRHAGE IF CLINICAL CONCERN FOR ACUTE ISCHEMIA CORRELATE WITH M RI.
--- NOTE | 2024-02-07 13:53 | CT ---
EXAMINATION TYPE: CT angio head neck DATE OF EXAM: 02/07/2024 HISTORY: AMS. sent by PCP to r/o CVA COMPARISON: 11/18/[address] DLP: 2431.3 total mGycm. Automated Exposure Control for Dose Reduction was Utilized. TECHNIQUE: CTA scan of the head and neck is performed with IV Contrast, patient injected with 130ml mL of Isovue 370, axial images are obtained, coronal and sagittal reformatted images are reviewed. 3D reconstructed images are created on an independent workstation and reviewed. FINDINGS: Heart is enlarged and there is coronary artery calcification. Groundglass changes involving the lungs could relate to pneumonitis and there is a small left pleural effusion. Biapical pleural t hickening. Severe bilateral proximal ICA stenosis. There is dense intracranial atherosclerotic change cavernous segment bilateral ICA. Left vertebral artery is congenitally diminutive with dominant right vertebral artery. There is dimin ished enhancement of the distal left vertebral artery on images 19 through 22. Could not exclude a th rombus within the left vertebral artery. Hypertrophic and degenerative changes of the spine. No evidence of intracranial aneurysm or central vascular occlusion. Hypoplastic A1 segment on the rig ht. A critical test results discussed with Dr. Hanson at 1:50 PM 02/07/2024. IMPRESSION: 1. Severe bilateral proximal ICA stenosis correlate clinically. 2. Diminished enhancement of the left vertebral artery reference axial image 19 through 27 with dista l reconstitution. Could not exclude a thrombus within the left vertebral artery recommend MRI\MRA . NASCET criteria was used in interpretation of this exam?
[2024-02-07] MEDS: SODIUM CHLORIDE 0.9% 1,000 ML IV SCH (15:12)
[2024-02-07] MEDS: ASPIRIN 325 MG TAB PO STA (15:13)
--- NOTE | 2024-02-07 18:04 | P.CNNES ---
History of Present Illness Consult date: 02/07/24 Requesting physician: Cade Hanson Reason for Consult: cva History of Present Illness: This is an 83-year-old gentleman who presented emergency department because of confusion. Patient is at bedside who provide the history. According to the patient was confused yesterday morning and improved by nighttime. She stated that he was just not himself and was very sleepy. Patient does not have any focal weakness, numbness, visual disturbance, speech difficulty. Had mild confusion over the last 2-3 weeks but was mild leg weakness mostly in the morning. No jerking of any extremity, no bowel incontinence no tongue bite. No history of seizures. feels he patient has not been as sharp in the last 1 year. He does not have any focal weakness. In the past he would look at something and he is good at solving problems or solving any issues but in the past 1 year he is not as been sharp. No official diagnosis of dementia. Patient had a recent ureteral artificial sphincter placed about a month ago and then when he followed up recently with his surgeon to activate the urethral sphincter he was notified to hold off since patient has been having recent confusion. Patient has a history of skin cancer and in the last 2 weeks started on chemotherapy over the left face. does not know exactly what kind of skin cancer but for sure it is not melanoma. No history of strokes in the past. He has underlying shortness of breath since . He had a history of bypass in the past. He has COVID 3 years ago and since COVID his shortness of breath got worse. No ptosis as the day goes on. No speech difficulty. No dysphagia. Some of the workup during this hospital visit consisted of: Patient on presentation is 149/71 with a heart rate of 56. Temperature is 98.2 F. The rate is 18 and pulse ox is 97 at room air. Sodium is 126. I reviewed his sodium level in the past and it was never as low as this. Calcium is 8.3 Serum glucose 95 BUN/creatinine normal. CK level is 92. Alcohol is less than 10. CT of the head is reported as degenerative changes with no acute hemorrhage. I reviewed the CT and there is no acute or subacute ischemia. There is no bleed. CT angiography is reported as severe bilateral proximal ICA stenosis. Diminished enhancement of the left vertebral artery reference axial image 19 through 27 with distal reconstitution. Could not exclude a thrombus within the left vertebral artery recommend MRI/MRA. Review of Systems The positive and negative as per HPI. Past Medical History Past Medical History: Atrial Fibrillation, Coronary Artery Disease (CAD), Cancer, Chest Pain / Angina, GERD/Reflux, Hyperlipidemia, Hypertension, Myocardial Infarction (AR), Osteoarthritis (OA), Prostate Disorder, Sleep Apnea/CPAP/BIPAP, Thyroid Disorder Additional Past Medical History / Comment(s): Hypothyroid, hyperactive bladder, A. fib (refuses anticoagulation). SEPTIC ARTHRITIS. diverticulosis History of Any Multi-Drug Resistant Organisms: None Reported Past Surgical History: Heart Catheterization, Tonsillectomy Additional Past Surgical History / Comment(s): radioactive seed implants for pro state cancer, cataracts removed-lens implants, bladder control device implanted 07-10-17 and removed 07-18-18, colonoscopy/polypectomy-benign. bilateral hip replaced. bone infection post op right hip. Past Anesthesia/Blood Transfusion Reactions: No Reported Reaction Additional Past Anesthesia/Blood Transfusion Reaction / Comment(s): has never had any blood transfusion Past Psychological History: No Psychological Hx Reported Smoking Status: Former smoker Past Alcohol Use History: Daily Past Drug Use History: None Reported - Past Family History Mother Family Medical History: Cancer Additional Family Medical History / Comment(s): from colon cancer at age 60 Father Family Medical History: Liver Disease Additional Family Medical History / Comment(s): from cirrhosis of the liver at age 59 they felt it was d/t farming chemicals 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 Medications and Allergies Home Medications Medication Instructions Recorded Confirmed Type Levothyroxine Sodium [Levoxyl] 75 mcg PO DAILY 07/22/18 02/07/24 History Pantoprazole Sodium [Protonix] 40 mg PO DAILY 11/01/20 02/07/24 History Ascorbic Acid [Vitamin C] 1,000 mg PO DAILY 01/03/23 02/07/24 History Aspirin EC [Ecotrin Low Dose] 81 mg PO DAILY 01/03/23 02/07/24 History Astaxanthin 4 mg PO DAILY 01/03/23 02/07/24 History Bitter Melon Supplement (Unknown 1 dose PO DAILY 01/03/23 02/07/24 History Strength) Butterbur Supplement 1 dose PO DAILY 01/03/23 02/07/24 History Calcium Carbonate [Calcium] 1,200 mg PO DAILY 01/03/23 02/07/24 History Chlorella 500mg Supplement 500 mg PO DAILY 01/03/23 02/07/24 History Cholecalciferol [Vitamin D3 (25 50 mcg PO DAILY 01/03/23 02/07/24 History Mcg = 1000 Iu)] Chromemate Supplement 1 cap PO DAILY 01/03/23 02/07/24 History Cilantro Supplement (Unknown 1 dose PO DAILY 01/03/23 02/07/24 History Strength) L.acidoph,Paracasei, B.lactis 1 cap PO DAILY 01/03/23 02/07/24 History [Probiotic] Loperamide HCl [Imodium A-D] 2 - 4 mg PO QID PRN 01/03/23 02/07/24 History Lycopene 10 mg PO DAILY 01/03/23 02/07/24 History Melatonin 5 mg PO HS 01/03/23 02/07/24 History [place]-3 Fatty Acids [[place]-3] 1,000 mg PO DAILY 01/03/23 02/07/24 History Pyridoxine HCl (Vitamin B6) 100 mg PO DAILY 01/03/23 02/07/24 History [Vitamin B-6] Red Yeast Rice 600 mg PO DAILY 01/03/23 02/07/24 History Sertraline [Zoloft] 100 mg PO DAILY 01/03/23 02/07/24 History Thc Gummy 5mg 5 mg PO HS 01/03/23 02/07/24 History Turmeric Root Extract [Turmeric] 500 mg PO DAILY 01/03/23 02/07/24 History Ubidecarenone [Co Q-10] 300 mg PO DAILY 01/03/23 02/07/24 History Zinc Gluconate [Zinc] 50 mg PO DAILY 01/03/23 02/07/24 History Imiquimod [Aldara] 1 packet TOPICAL DIRECTED 02/07/24 02/07/24 History Losartan [Cozaar] 25 mg PO DAILY 02/07/24 02/07/24 History Allergies Allergy/AdvReac Type Severity Reaction Status Date / Time [id number]-MuS Reductase AdvReac Severe Rash/Hives Verified 02/07/24 10:26 Inhibitor [Fpggmzw-Rox-Glb Reductase Inhibitor] Physical Examination - Vital Signs Vital Signs: Vital Signs Temp Pulse Resp BP Pulse Ox 02/07/24 15:00 55 L 16 158/78 97 08/30/24 13:30 56 L 18 134/66 98 02/07/24 11:30 54 L 18 134/65 98 02/07/24 10:22 98.2 F 56 L 18 149/71 97 Intake and Output 02/07/24 02/07/24 02/07/24 06:59 14:59 22:59 Other: Weight 102.058 kg GENERAL: The patient is lying in bed and is not in acute distress. HENT: Has black discoloration on the left side of face where skin cancer (mostly V2 distribution). NEUROLOGICAL: Higher mental function: The patient is awake, alert, oriented to self, place and time. Patient is following commands. No aphasia and no neglect. Cranial nerves: The pupils are round, equal and reactive to light and accommodation. Visual dejesus are full to confrontation throughout. Extraocular movement is intact no nystagmus is noted. Facial sensation is normal to touch throughout. The facial strength is normal throughout. Hearing is mildly to mo derately decreased bilaterally to hand rub. Tongue is midline and moved [id number] without any difficulty. No dysarthria is noted. Shoulder shrug is normal bilaterally. Motor: The strength is somewhat limited because of his arthritis but is lifting all extremities above gravity equally. Normal tone and bulk. Cerebellum: Normal finger to nose bilaterally. Sensation: Sensation is normal to touch throughout. Reflexes (right/left): left brachioradialis is 3+. But otherwise, 2+. Plantars are downgoing bilaterally. Results - Laboratory Findings CBC and BMP: 02/07/24 10:45 02/07/24 10:45 Abnormal Lab Findings: Abnormal Labs 02/07/24 02/07/24 10:45 10:45 WBC 2.5 L Lymphocytes # 0.8 L Sodium 126 L Chloride 97 L Calcium 8.3 L Assessment and Plan Assessment: This is an 83-year-old gentleman with history of dyspnea since , bypass, a month ago had artificial ureteral sphincter, cancer and received chemotherapy 2 weeks ago on his face present emergency department because of confusion yesterday in which the felt he was confused sleepy yesterday from morning and improved by nighttime. Seems he has been more confused sleepy with leg weakness in last 2 to 3 weeks. Today he feels drastically better. CT of the head is unremarkable for any acute process. The sodium is 126 which he never had this low. Patient has not as been sharp and the last 1 year. Altered mental status seems more metabolic encephalopathy with a sodium of 126. Rule out stroke especially with severe bilateral proximal ICA stenosis as well as diminished enhancement of the left vertebral artery but I doubt stroke--current no focal deficit and is oriented X3 Bilateral proximal ICA stenosis as well as diminished enhancement of the left vertebral artery on CT angiography that reported but could not exlcude thrombus in left vertebral artery History of skin rash and received chemotherapy on left side of the face Urinary incontinence s/p Recent artificial urethral sphincter a month ago History of cardiac bypass Underlying dyspnea at baseline with exertion History of COVID-19 infection about 3 years ago Underlying history of hypercholestremia Plan: I will get a repeat CT of the head within 48 hours (this Saturday) to assess if any changes no seen on initial CT. will attempt to bring the patient's recent information for his artificial urethral sphincter and will see if it is MRI compatible. If it is then recommend MRI of the brain as well as MRA head and neck I consulted vascular surgery team for the bilateral ICA stenosis Ordered 2D echo, TSH, vitamin B12, folate, ammonia level. I ordered a routine EEG for his episode of confusion and that would not be done until Saturday since no EEG techs available for routines. Lipid Panel is ordered and pending Patient was given aspirin 325mg once in the ED and was started on aspirin 325 daily by ED physician As well as patient was started on Lipitor 80 mg nightly by the ED physician. Every 4 hours neurochecks Cardiac monitoring PT OT and SOCIAL PROBLEMS SPECIALIST are consulted Consider nephrology consultation for the hyponatremia Will defer the rest of the medical management to primary and other specialist For DVT prophylaxis I started the patient on subcu heparin 5000 units every 12 hour The plan is discussed with patient, his who is at bedside and ED nurse. Thank you for the consultation. Dr. Gomez will resume neurology service tomorrow A.M. Time with Patient: Greater than 30
--- NOTE | 2024-02-07 18:23 | P.HPIM ---
History of Present Illness H&P Date: 02/07/24 Chief Complaint: Altered mental status 83-year-old patient, history of hypertension, hyperlipidemia, hypothyroidism, atrial fibrillation, coronary artery disease, who presented emergency department because of confusion. According to the patient was confused yesterday m orning and improved by nighttime. She stated that he was just not himself and was very sleepy. Patient denies any focal weakness, numbness, visual disturbance, speech difficulty. Had mild confusion over the last 2-3 weeks but was mild leg weakness mostly in the morning. No jerking of any extremity, no bowel incontinence no tongue bite. No history of seizures. feels he patient has not been as sharp in the last 1 year. No official diagnosis of dementia. Patient had a recent ureteral artificial sphincter placed about a month ago and then when he followed up recently with his surgeon to activate the urethral sphincter he was notified to hold off since patient has been having recent confusion. Patient has a history of skin cancer and in the last 2 weeks started on chemotherapy over the left face. does not know exactly what kind of skin cancer but for sure it is not melanoma. No history of strokes in the past. --workup completed in the ER: Blood work completed in ED reveals a WBC of 2.5, hemoglobin of 13.7 and platelet count of 176, sodium 126 0.7, BUN/CREATININE 15/0.70 AND BLOOD GLUCOSE OF 97 CT of the head is reported as degenerative changes with no acute hemorrhage. I reviewed the CT and there is no acute or subacute ischemia. There is no bleed. CT angiography is reported as severe bilateral proximal ICA stenosis. Diminished enhancement of the left vertebral artery reference axial image 19 through 27 with distal reconstitution. Could not exclude a thrombus within the left vertebral artery Review of Systems REVIEW OF SYSTEMS: CONSTITUTIONAL: No fever, no malaise, no fatigue. HEENT: No recent visual problems or hearing problems. Denied any sore throat. CARDIOVASCULAR: No chest pain, orthopnea, PND, no palpitations, no syncope. PULMONARY: No shortness of breath, no cough, no hemoptysis. GASTROINTESTINAL: No diarrhea, no nausea, no vomiting, no abdominal pain. NEUROLOGICAL: No headaches, no weakness, no numbness. HEMATOLOGICAL: Denies any bleeding or petechiae. GENITOURINARY: Denies any burning micturition, frequency, or urgency. MUSCULOSKELETAL/RHEUMATOLOGICAL: Denies any joint pain, swelling, or any muscle pain. ENDOCRINE: Denies any polyuria or polydipsia. The rest of the 14-point review of systems is negative. Past Medical History Past Medical History: Atrial Fibrillation, Coronary Artery Disease (CAD), Cancer, Chest Pain / Angina, GERD/Reflux, Hyperlipidemia, Hypertension, Myocardial Infarction (DE), Osteoarthritis (OA), Prostate Disorder, Sleep Apnea/CPAP/BIPAP, Thyroid Disorder Additional Past Medical History / Comment(s): Hypothyroid, hyperactive bladder, A. fib (refuses anticoagulation). SEPTIC ARTHRITIS. diverticulosis History of Any Multi-Drug Resistant Organisms: None Reported Past Surgical History: Heart Catheterization, Tonsillectomy Additional Past Surgical History / Comment(s): radioactive seed implants for prostate cancer, cataracts removed-lens implants, bladder control device implanted 07-10-17 and removed 07-18-18, colonoscopy/polypectomy-benign. bilateral hip replaced. bone infection post op right hip. Past Anesthesia/Blood Transfusion Reactions: No Reported Reaction Additional Past Anesthesia/Blood Transfusion Reaction / Comment(s): has never had any blood transfusion Past Psychological History: No Psychological Hx Reported Smoking Status: Former smoker Past Alcohol Use History: Daily Past Drug Use History: None Reported - Past Family History Mother Family Medical History: Cancer Additional Family Medical History / Comment(s): from colon cancer at age 60 Father Family Medical History: Liver Disease Additional Family Medical History / Comment(s): from cirrhosis of the liver at age 59 they felt it was d/t farming chemicals 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 Medications and Allergies Home Medications Medication Instructions Recorded Confirmed Type Levothyroxine Sodium [Levoxyl] 75 mcg PO DAILY 07/22/18 02/07/24 History Pantoprazole Sodium [Protonix] 40 mg PO DAILY 11/01/20 02/07/24 History Ascorbic Acid [Vitamin C] 1,000 mg PO DAILY 01/03/23 02/07/24 History Aspirin EC [Ecotrin Low Dose] 81 mg PO DAILY 01/03/23 02/07/24 History Astaxanthin 4 mg PO DAILY 01/03/23 02/07/24 History Bitter Melon Supplement (Unknown 1 dose PO DAILY 01/03/23 02/07/24 History Strength) Butterbur Supplement 1 dose PO DAILY 01/03/23 02/07/24 History Calcium Carbonate [Calcium] 1,200 mg PO DAILY 01/03/23 02/07/24 History Chlorella 500mg Supplement 500 mg PO DAILY 01/03/23 02/07/24 History Cholecalciferol [Vitamin D3 (25 50 mcg PO DAILY 01/03/23 02/07/24 History Mcg = 1000 Iu)] Chromemate Supplement 1 cap PO DAILY 01/03/23 02/07/24 History Cilantro Supplement (Unknown 1 dose PO DAILY 01/03/23 02/07/24 History Strength) L.acidoph,Paracasei, B.lactis 1 cap PO DAILY 01/03/23 02/07/24 History [Probiotic] Loperamide HCl [Imodium A-D] 2 - 4 mg PO QID PRN 01/03/23 02/07/24 History Lycopene 10 mg PO DAILY 01/03/23 02/07/24 History Melatonin 5 mg PO HS 01/03/23 02/07/24 History [place]-3 Fatty Acids [[place]-3] 1,000 mg PO DAILY 01/03/23 02/07/24 History Pyridoxine HCl (Vitamin B6) 100 mg PO DAILY 01/03/23 02/07/24 History [Vitamin B-6] Red Yeast Rice 600 mg PO DAILY 01/03/23 02/07/24 History Sertraline [Zoloft] 100 mg PO DAILY 01/03/23 02/07/24 History Thc Gummy 5mg 5 mg PO HS 01/03/23 02/07/24 History Turmeric Root Extract [Turmeric] 500 mg PO DAILY 01/03/23 02/07/24 History Ubidecarenone [Co Q-10] 300 mg PO DAILY 01/03/23 02/07/24 History Zinc Gluconate [Zinc] 50 mg PO DAILY 01/03/23 02/07/24 History Imiquimod [Aldara] 1 packet TOPICAL DIRECTED 02/07/24 02/07/24 History Losartan [Cozaar] 25 mg PO DAILY 02/07/24 02/07/24 History Allergies Allergy/AdvReac Type Severity Reaction Status Date / Time [id number]-DMD-IhJ Reductase AdvReac Severe Rash/Hives Verified 02/07/24 10:26 Inhibitor [Suskvrm-Dmn-Izz Reductase Inhibitor] Physical Exam Vitals: Vital Signs Temp Pulse Resp BP Pulse Ox 02/07/24 15:00 55 L 16 158/78 97 02/07/24 13:30 56 L 18 134/66 98 02/07/24 11:30 54 L 18 134/65 98 02/07/24 10:22 98.2 F 56 L 18 149/71 97 Intake and Output 02/07/24 02/07/24 02/07/24 06:59 14:59 22:59 Other: Weight 102.058 kg General appearance: alert, in no apparent distress Head exam: Present: atraumatic, normocephalic, normal inspection Eye exam: Present: normal appearance, PERRL, EOMI. Absent: scleral icterus, conjunctival injection, periorbital swelling ENT exam: Present: normal exam, mucous membranes moist Neck exam: Present: normal inspection. Absent: tenderness, meningismus, lymphadenopathy Respiratory exam: Present: normal lung sounds bilaterally. Absent: respiratory distress, wheezes, rales, rhonchi, stridor Cardiovascular Exam: Present: regular rate, normal rhythm, normal heart sounds. Absent: systolic murmur, diastolic murmur, rubs, gallop, clicks GI/Abdominal exam: Present: soft, normal bowel sounds. Absent: distended, tenderness, guarding, rebound, rigid Extremities exam: Present: normal inspection, full ROM, normal capillary refill. Absent: tenderness, pedal edema, joint swelling, calf tenderness Back exam: Present: normal inspection Neurological exam: Present: alert, oriented X3, CN II-XII intact Psychiatric exam: Present: normal affect, normal mood Skin exam: Present: warm, dry, intact, normal color. Absent: rash Results CBC & Chem 7: 02/07/24 10:45 02/07/24 10:45 Labs: Abnormal Lab Results - Last 24 Hours (Table) 02/07/24 02/07/24 Range/Units 10:45 10:45 WBC 2.5 L (3.8-10.6) k/uL Lymphocytes # 0.8 L (1.0-4.8) k/uL Sodium 126 L (137-145) mmol/L Chloride 97 L (98-107) mmol/L Calcium 8.3 L (8.4-10.2) mg/dL Assessment and Plan Assessment: 1. Hyponatremia -Patient has been placed on IV fluids in form of normal saline at a rate of 75 cc an hour; will monitor strict RICARDO's; monitor electrolytes -Order serum and urine osmolality, urine sodium level -- Further recommendations pending clinical course 2. Altered mental status likely metabolic encephalopathy related to hyponatremia/CVA -Patient has been placed on IV fluids and as indicated above -Workup completed in ED reveals a CT of the head which is reported as degenera tive changes with right -We will monitor neurochecks; monitor sodium levels closely and make adjustments in fluid -Neurology recommending repeat CT head in 48 hours -Patient has been placed on aspirin and Lipitor 80 mg nightly -Order 2D echo, TSH vitamin B12 and folic acid levels; Monia level is ordered -Consult PT/OT/NAIL MAKING MACHINE SETTER -Continuous cardiac monitoring; permissive hypertension 3. Bilateral proximal ICA stenosis; with diminished enhancement of left vertebral artery on CT angiography; left vertebral artery thrombus cannot be ruled out -Patient has been evaluated by neurology and given carotid stenosis on CTA, recommending MRI as well as MRA of the brain if artificial urethral sphincter is compatible with MRI 4. Hypertension; takes Cozaar at home which is placed on hold for permissive hy pertension 5. Hypothyroidism; thyroxine 75 mcg daily 6. Hyperlipidemia; Lipitor 80 mg p.o. nightly 7. Depression; Zoloft 100 mg daily DVT prophylaxis; heparin per recommendation of neurology CODE STATUS; full code
[2024-02-07] MEDS: ATORVASTATIN 80 MG TAB PO SCH (20:17)
[2024-02-07] MEDS: HEPARIN SODIUM,PORCINE 5,000 UNIT/ML 1 ML VIAL SQ SCH (20:21)
[2024-02-08] MEDS: PYRIDOXINE 50 MG TAB PO SCH (08:43)
[2024-02-08] MEDS: CHOLECALCIFEROL 25 MCG (1000 IU) TABLET PO SCH (08:43)
[2024-02-08] MEDS: ASCORBIC ACID 500 MG TAB PO SCH (08:43)
[2024-02-08] MEDS: PANTOPRAZOLE 40 MG TABLET PO SCH (08:43)
[2024-02-08] MEDS: ASPIRIN 325 MG TAB PO SCH (08:43)
[2024-02-08] MEDS: LEVOTHYROXINE 75 MCG TAB PO SCH (08:43)
[2024-02-08] MEDS ORDERED: SERTRALINE 100 MG TAB PO SCH (09:00)
[2024-02-08 09:56] LABS: African American GFR (CKD) >90 (>60 ml/min/1.73 sqM); Anion Gap 7 mmol/L; Basophils % (A) 0 %; Blood Urea Nitrogen 10 mg/dL (9-20); Calcium 8.1 mg/dL (8.4-10.2); Carbon Dioxide 24 mmol/L (22-30); Chloride 97 mmol/L (98-107); Eosinophils % (A) 1 %; Glucose 86 mg/dL (74-99); HCT 42.8 % (39.0-53.0); HGB 14.2 gm/dL (13.0-17.5); Lymphocytes # (A) 1.3 k/uL (1.0-4.8); Lymphocytes % (A) 37 %; MCH 30.8 pg (25.0-35.0); MCHC 33.2 g/dL (31.0-37.0); MCV 92.8 fL (80.0-100.0); Mean Platelet Volume 8.8; Monocytes # (A) 0.4 k/uL (0-1.0); Monocytes % (A) 11 %; Neutrophils # (A) 1.7 k/uL (1.3-7.7); Neutrophils % (A) 49 %; Non-African American GFR(CKD) >90 (>60 ml/min/1.73 sqM); Platelet Count 160 k/uL (150-450); Potassium 4.3 mmol/L (3.5-5.1); RBC 4.62 m/uL (4.30-5.90); RDW 13.9 % (11.5-15.5); Sodium 128 mmol/L (137-145); WBC 3.4 k/uL (3.8-10.6)
[2024-02-08 13:31] LABS: Chol/HDL Ratio 3.46 Ratio; LDL Cholesterol,Calculated 99.7 mg/dL (0.0-131.0)
--- NOTE | 2024-02-08 13:59 | CA ---
Transthoracic Echo Report Name: Ye Urbano Age: 83 Gender: M : 1940 Exam Date: 02/08/2024 11:12 Exam Location: [facility] Ht (in): 67 Wt (lb): 225 Ordering Physician: Moreno Woods MD Attending/Referring Phys: Guide Domestic Tour Denisse Rm RDCS Procedure CPT: Indications: stroke Cardiac Hx: Technical Quality: Fair Contrast 1: Total Dose (mL): Contrast 2: Total Dose (mL): MEASUREMENTS (Male / Female) Normal Values 2D ECHO LV Diastolic Diameter PLAX 3.6 cm 4.2 - 5.9 / 3.9 - 5.3 cm LV Systolic Diameter PLAX 2.2 cm IVS Diastolic Thickness 0.9 cm 0.6 - 1.0 / 0.6 - 0.9 cm LVPW Diastolic Thickness 1.1 cm 0.6 - 1.0 / 0.6 - 0.9 cm LV Relative Wall Thickness 0.6 RV Internal Dim ED PLAX 6.0 cm LVOT Diameter 1.9 cm LA Volume 135.1 cm??? 18 - 58 / 22 - 52 cm??? LA Volume Index 60.4 cm???/m??? 16 - 28 cm???/m??? M-MODE Aortic Root Diameter MM 2.8 cm LA Systolic Diameter MM 8.0 cm LA Ao Ratio MM 2.8 DOPPLER AV Peak Velocity 216.1 cm/s AV Peak Gradient 18.7 mmHg AV Mean Velocity 145.2 cm/s AV Mean Gradient 9.4 mmHg AV Velocity Time Integral 50.8 cm LVOT Peak Velocity 70.4 cm/s LVOT Peak Gradient 2.0 mmHg LVOT Velocity Time Integral 19.3 cm LVOT Stroke Volume 54.9 cm??? LVOT Stroke Volume Index 25.8 ml/m??? LVOT Cardiac Index 1202.3 cm???/min???m??? AV Area Cont Eq vti 1.1 cm??? AV Area Cont Eq pk 0.9 cm??? MV Area PHT 3.2 cm??? Mitral E Point Velocity 135.9 cm/s Mitral A Point Velocity 0.2 cm/s Mitral E to A Ratio 815.1 MV Deceleration Time 236.3 ms MV E' Velocity 7.0 cm/s Mitral E to MV E' Ratio 19.6 TR Peak Velocity 324.9 cm/s TR Peak Gradient 42.2 mmHg Right Atrial Pressure 20.0 mmHg Pulmonary Artery Systolic Pressu 62.2 mmHg Right Ventricular Systolic Press 62.2 mmHg FINDINGS Left Ventricle Left ventricular cavity size normal. Left ventricular wall thickness normal. Abnormal (paradoxical) septal motion consistent with postoperative state. Flattened septum in diastole consistent with right ventricle volume overload. No obvious regional wall motion abnormalities. Left ventricular ejection fraction is estimated at 50-55 %. Grade 2 diastolic dysfunction. Right Ventricle Severe right ventricular dilatation. Severe pulmonary hypertension. Right ventricular systolic pressure estimated at 62 mm hg. Right Atrium Moderate right atrial dilatation. Left Atrium Severely increased left atrial volume. Moderately increased left atrial area. Mitral Valve Structurally normal mitral valve. Mitral valve thickened. Moderate mitral annular calcification. [id number] mitral regurgitation. Posteriorly directed mitral regurgitation jet. Aortic Valve Trileaflet aortic valve. Mild aortic stenosis with a peak gradient of 19 mmHg and a mean gradient of 9 mmHg. Trace aortic regurgitation. Tricuspid Valve Structurally normal tricuspid valve. Moderate tricuspid regurgitation. Pulmonic Valve Structurally normal pulmonic valve. Trace pulmonic regurgitation. Pericardium No pericardial effusion. Echo free space anterior to the right ventricle likely represents a fat pad. Aorta Normal size aortic root and proximal ascending aorta. CONCLUSIONS Left ventricular ejection fraction 50-55% Severe right ventricular dilation with RVSP 62 and flattened septum consistent with right ventricular volume overload Moderate mitral calcification Moderate to severe posteriorly directed mitral regurgitation Mild aortic stenosis Moderate tricuspid regurgitation Previewed by: Dr. Al Cleary DO (Electronically Signed) Final Date: 08 February 2024 13:58
--- NOTE | 2024-02-08 14:01 | P.GSCN ---
History of Present Illness Consult date: 02/08/24 History of present illness: Patient is an 83-year-old male who presented due to confusion, there is no family at the bedside so the majority of history and physical was gained via the chart and nursing staff. Recently the patient had an artificial ureteral sphincter placed and was supposed to have initiated but due to his confusion he was sent to the hospital for further testing. Patient also has a history of skin cancer on his left cheek that has been treated with chemotherapy. He denies any unilateral weakness. He denies any history of strokes or mini stroke s. Review of Systems ROS unobtainable: due to mental status Past Medical History Past Medical History: Atrial Fibrillation, Coronary Artery Disease (CAD), Cancer, Chest Pain / Angina, GERD/Reflux, Hyperlipidemia, Hypertension, Myocardial Infarction (NH), Osteoarthritis (OA), Prostate Disorder, Sleep Apnea/CPAP/BIPAP, Thyroid Disorder Additional Past Medical History / Comment(s): Hypothyroid, hyperactive bladder, A. fib (refuses anticoagulation). SEPTIC ARTHRITIS. diverticulosis Last Myocardial Infarction Date:: unknown History of Any Multi-Drug Resistant Organisms: None Reported Past Surgical History: Heart Catheterization, Tonsillectomy Additional Past Surgical History / Comment(s): radioactive seed implants for prostate cancer, cataracts removed-lens implants, bladder control device implanted 07-10-17 and removed 07-18-18, colonoscopy/polypectomy-benign. bilateral hip replaced. bone infection post op right hip. Past Anesthesia/Blood Transfusion Reactions: No Reported Reaction Additional Past Anesthesia/Blood Transfusion Reaction / Comm: has never had any blood transfusion Past Psychological History: No Psychological Hx Reported Smoking Status: Former smoker Past Alcohol Use History: Daily Past Drug Use History: None Reported - Past Family History Mother Family Medical History: Cancer Additional Family Medical History / Comment(s): from colon cancer at age 60 Father Family Medical History: Liver Disease Additional Family Medical History / Comment(s): from cirrhosis of the liver at age 59 they felt it was d/t farming chemicals 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 Medications and Allergies Home Medications Medication Instructions Recorded Confirmed Type Levothyroxine Sodium [Levoxyl] 75 mcg PO DAILY 07/22/18 02/07/24 History Pantoprazole Sodium [Protonix] 40 mg PO DAILY 11/01/20 02/07/24 History Ascorbic Acid [Vitamin C] 1,000 mg PO DAILY 01/03/23 02/07/24 History Aspirin EC [Ecotrin Low Dose] 81 mg PO DAILY 01/03/23 02/07/24 History Astaxanthin 4 mg PO DAILY 01/03/23 02/07/24 History Bitter Melon Supplement (Unknown 1 dose PO DAILY 01/03/23 02/07/24 History Strength) Butterbur Supplement 1 dose PO DAILY 01/03/23 02/07/24 History Calcium Carbonate [Calcium] 1,200 mg PO DAILY 01/03/23 02/07/24 History Chlorella 500mg Supplement 500 mg PO DAILY 01/03/23 02/07/24 History Cholecalciferol [Vitamin D3 (25 50 mcg PO DAILY 01/03/23 02/07/24 History Mcg = 1000 Iu)] Chromemate Supplement 1 cap PO DAILY 01/03/23 02/07/24 History Cilantro Supplement (Unknown 1 dose PO DAILY 01/03/23 02/07/24 History Strength) L.acidoph,Paracasei, B.lactis 1 cap PO DAILY 01/03/23 02/07/24 History [Probiotic] Loperamide HCl [Imodium A-D] 2 - 4 mg PO QID PRN 01/03/23 02/07/24 History Lycopene 10 mg PO DAILY 01/03/23 02/07/24 History Melatonin 5 mg PO HS 01/03/23 02/07/24 History [place]-3 Fatty Acids [Pontiac-3] 1,000 mg PO DAILY 01/03/23 02/07/24 History Pyridoxine HCl (Vitamin B6) 100 mg PO DAILY 01/03/23 02/07/24 History [Vitamin B-6] Red Yeast Rice 600 mg PO DAILY 01/03/23 02/07/24 History Sertraline [Zoloft] 100 mg PO DAILY 01/03/23 02/07/24 History Thc Gummy 5mg 5 mg PO HS 01/03/23 02/07/24 History Turmeric Root Extract [Turmeric] 500 mg PO DAILY 01/03/23 02/07/24 History Ubidecarenone [Co Q-10] 300 mg PO DAILY 01/03/23 02/07/24 History Zinc Gluconate [Zinc] 50 mg PO DAILY 01/03/23 02/07/24 History Imiquimod [Aldara] 1 packet TOPICAL DIRECTED 02/07/24 02/07/24 History Losartan [Cozaar] 25 mg PO DAILY 02/07/24 02/07/24 History Allergies Allergy/AdvReac Type Severity Reaction Status Date / Time Sulbnbp-[id number] Reductase AdvReac Severe Rash/Hives Verified 02/07/24 10:26 Inhibitor [Dwkpeow-Naz-Gsp Reductase Inhibitor] Surgical - Exam Vital Signs Temp Pulse Resp BP Pulse Ox 98.2 F 56 L 18 149/71 97 02/07/24 10:22 02/07/24 10:22 02/07/24 10:22 02/07/24 10:22 02/07/24 10:22 General is a pleasant cooperative male in no acute distress. Left cheek with discoloration and crusting. Heart appears regular. Lungs are clear. Abdomen i s soft. Extremities with no clubbing, cyanosis or edema. Normal appearing motor function bilaterally. . Results CTA of the neck is personally reviewed. Report per radiology deems severe bilateral proximal stenosis, per my review likely somewhere around 60% - Labs 02/08/24 07:43 02/08/24 07:43 Abnormal Lab Results - Last 24 Hours (Table) 02/08/24 02/08/24 Range/Units 07:43 07:43 WBC 3.4 L (3.8-10.6) k/uL Sodium 128 L (137-145) mmol/L Chloride 97 L (98-107) mmol/L Creatinine 0.59 L (0.66-1.25) mg/dL Calcium 8.1 L (8.4-10.2) mg/dL Diabetes panel 02/08/24 Range/Units 07:43 Sodium 128 L (137-145) mmol/L Potassium 4.3 (3.5-5.1) mmol/L Chloride 97 L (98-107) mmol/L Carbon Dioxide 24 (22-30) mmol/L BUN 10 (9-20) mg/dL Creatinine 0.59 L (0.66-1.25) mg/dL Glucose 86 (74-99) mg/dL Calcium 8.1 L (8.4-10.2) mg/dL Triglycerides 106.00 (0.00-149.00) mg/dL HDL Cholesterol 49.10 (40.00-60.00) mg/dL Thyroid panel 02/07/24 Range/Units 18:27 TSH 2.440 (0.465-4.680) mIU/L Calcium panel 02/08/24 Range/Units 07:43 Calcium 8.1 L (8.4-10.2) mg/dL Pituitary panel 02/07/24 02/08/24 Range/Units 18:27 07:43 Sodium 128 L (137-145) mmol/L Potassium 4.3 (3.5-5.1) mmol/L Chloride 97 L (98-107) mmol/L Carbon Dioxide 24 (22-30) mmol/L BUN 10 (9-20) mg/dL Creatinine 0.59 L (0.66-1.25) mg/dL Glucose 86 (74-99) mg/dL Calcium 8.1 L (8.4-10.2) mg/dL TSH 2.440 (0.465-4.680) mIU/L Adrenal panel 02/08/24 Range/Units 07:43 Sodium 128 L (137-145) mmol/L Potassium 4.3 (3.5-5.1) mmol/L Chloride 97 L (98-107) mmol/L Carbon Dioxide 24 (22-30) mmol/L BUN 10 (9-20) mg/dL Creatinine 0.59 L (0.66-1.25) mg/dL Glucose 86 (74-99) mg/dL Calcium 8.1 L (8.4-10.2) mg/dL Assessment and Plan Assessment: Bilateral carotid artery stenosis Confusion No obvious strokelike symptoms at this time, awaiting MRI Plan: Will plan to order a carotid Doppler at this time for further evaluation, will discuss pending further imaging, at this time per my review it does not appear to be indicated for surgical intervention based on no lateralizing strokelike symptoms, and less than 80% stenosis per my review. Will continue to follow and monitor.
[2024-02-08] MEDS: CLOPIDOGREL 75 MG TAB PO SCH (14:05)
--- NOTE | 2024-02-08 19:16 | US ---
EXAMINATION TYPE: US carotid duplex BILAT DATE OF EXAM: 02/08/2024 COMPARISON: NONE CLINICAL INDICATION: Male, 83 years old with history of carotid stenosis; stenosis TECHNIQUE: Carotid duplex ultrasound examination. Indirect Doppler criteria was utilized. FINDINGS: EXAM MEASUREMENTS: RIGHT: Peak Systolic Velocity (PSV) cm/sec ----- Right CCA: 73.4 ----- Right ICA: 131 ----- Right ECA: 117 ICA/CCA ratio: 1.3 RIGHT: End Diastole cm/sec ----- Right CCA: 1.3 ----- Right ICA: 4.5 ----- Right ECA: 8.2 LEFT: Peak Systolic Velocity (PSV) cm/sec ----- Left CCA: 58.9 ----- Left ICA: 149 ----- Left ECA: 109 ICA/CCA ratio: 2.5 LEFT: End Diastole cm/sec ----- Left CCA: 0 ----- Left ICA: 19.9 ----- Left ECA: 12.7 VERTEBRALS (direction of flow): Right Vertebral: Antegrade Left Vertebral: Antegrade Rhythm: Normal SENSOR SPECIALIST NOTES: No significant stenosis seen IMPRESSION: 50-69% stenosis of the bilateral carotid bifurcations. Criteria for Assigning % of Stenosis / Diameter reduction (Estimation based on the indirect measurements of the internal carotid artery velocities (ICA PSV). 1. Normal (no stenosis)=ICA PSV < 125 cm/s: ratio < 2.0: ICA EDV<40 cm/s. 2. Less than 50% stenosis=ICA PSV < 125 cm/s: ratio < 2.0: ICA EDV<40 cm/s. 3. 50 to 69% stenosis=ICA PSV of 125 to 230 cm/s: ration 2.0 ? 4.0: ICA EDV 40-100 cm/s. 4. Greater than 70% stenosis to near occlusion= ICA PSV > 230 cm/s: ratio > 4.0: ICA EDV > 100 cm/s. 5. Near occlusion= ICA PSV velocities may be low or undetectable: variable ratio and ICA EDV. 6. Total occlusion=unable to detect flow.
[2024-02-08] MEDS: SERTRALINE 100 MG TAB PO SCH (20:12)
[2024-02-09 08:33] LABS: African American GFR (CKD) >90 (>60 ml/min/1.73 sqM); Anion Gap 8 mmol/L; Blood Urea Nitrogen 7 mg/dL (9-20); Calcium 8.2 mg/dL (8.4-10.2); Carbon Dioxide 21 mmol/L (22-30); Chloride 96 mmol/L (98-107); Glucose 97 mg/dL (74-99); Non-African American GFR(CKD) >90 (>60 ml/min/1.73 sqM); Potassium 4.1 mmol/L (3.5-5.1); Sodium 125 mmol/L (137-145)
--- NOTE | 2024-02-09 10:15 | P.PN ---
Subjective Progress Note Date: 02/08/24 Patient was initially seen by Dr. Moreno Woods. Please refer to his note for details. Patient is a 83-year-old male with recent episode of confusion. Patient was found to have bilateral ICA stenosis on the CTA and left vertebral artery was diminished. Vascular surgery has been consulted. Patient at present is laying in the bed. He denies any headache. He denies any strokelike symptoms at this time. He has a rash on the left side of the cheek. Some of the workup during this hospital visit consisted of: Patient on presentation is 149/71 with a heart rate of 56. Temperature is 98.2 F. The rate is 18 and pulse ox is 97 at room air. Sodium is 126. I reviewed his sodium level in the past and it was never as low as this. Calcium is 8.3 Serum glucose 95 BUN/creatinine normal. CK level is 92. Alcohol is less than 10. CT of the head is reported as degenerative changes with no acute hemorrhage. I reviewed the CT and there is no acute or subacute ischemia. There is no bleed. CT angiography is reported as severe bilateral proximal ICA stenosis. Diminished enhancement of the left vertebral artery reference axial image 19 through 27 with distal reconstitution. Could not exclude a thrombus within the left vertebral artery recommend MRI/MRA Objective - Vital Signs Vital signs: Vital Signs Temp 98.1 F 02/08/24 11:18 Pulse 53 L 02/08/24 11:18 Resp 20 02/08/24 11:18 BP 131/60 02/08/24 11:18 Pulse Ox 97 02/08/24 11:18 FiO2 Intake & Output 02/07/24 02/08/24 02/08/24 18:59 06:59 18:59 Intake Total 540 240 Output Total 100 Balance 540 140 Weight 102.058 kg 98.5 kg Intake: Oral 540 240 Output: Urine 100 Other: Voiding Method Toilet Urinal # Voids 1 - Exam On examination patient is alert and awake. Speech and language functions are normal. No aphasia or dysarthria. On cranial nerve examination pupils are equal, round and reactive to light, visual dejesus are full with no neglect. Face is symmetric. Tongue protrudes to midline. On muscles on testing there is no pronator drift and the strength is normal. Sensory touch is equal with no neglect. No ataxia in the upper limbs. - Labs CBC & Chem 7: 02/08/24 07:43 02/09/24 07:33 Labs: Abnormal Lab Results - Last 24 Hours (Table) 02/08/24 02/08/24 Range/Units 07:43 07:43 WBC 3.4 L (3.8-10.6) k/uL Sodium 128 L (137-145) mmol/L Chloride 97 L (98-107) mmol/L Creatinine 0.59 L (0.66-1.25) mg/dL Calcium 8.1 L (8.4-10.2) mg/dL Assessment and Plan Assessment: This is an 83-year-old gentleman with history of dyspnea since , bypass, a month ago had artificial ureteral sphincter, cancer and received chemotherapy 2 weeks ago on his face present emergency department because of confusion yesterday in which the felt he was confused sleepy yesterday from morning and improved by nighttime. Seems he has been more confused sleepy with leg weakness in last 2 to 3 weeks. Today he feels drastically better. CT of the head is unremarkable for any acute process. The sodium is 126 which he never had this low. Patient has not as been sharp in the last 1 year. Altered mental status seems more metabolic encephalopathy with a sodium of 126. Rule out stroke especially with severe bilateral proximal ICA stenosis as well as diminished enhancement of the left vertebral artery but I doubt stroke--current no focal deficit and is oriented X3 Bilateral proximal ICA stenosis as well as diminished enhancement of the left vertebral artery on CT angiography that reported but could not exlcude thrombus in left vertebral artery History of skin rash and received chemotherapy on left side of the face Urinary incontinence s/p Recent artificial urethral sphincter a month ago History of cardiac bypass Underlying dyspnea at baseline with exertion History of COVID-19 infection about 3 years ago Underlying history of hypercholestremia Plan: Patient to undergo repeat CT head in the morning to rule out any CVA. This was ordered by Dr. Woods. will attempt to bring the patient's recent information for his artificial urethral sphincter and will see if it is MRI compatible. If it is then recommend MRI of the brain as well as MRA head and neck Vascular surgery team on board for the bilateral ICA stenosis. Discussed with Dr. Granados. They do not believe patient has significant stenosis, but awaiting MRI. 2D echo revealed LVEF 50 to 55%. Abnormal/paradoxical septal motion consistent with postoperative state. No obvious regional wall motion abnormalities. Severe right ventricular dilation. Moderate mitral calcification. Moderate to severe posteriorly directed MR. Mild AAS. Moderate TR. TSH 2.44, vitamin B12 321, folate 10.40, ammonia level < 9. We will start B12 [address] Woods has ordered a routine EEG for his episode of confusion and that would not be done until Saturday. Lipid Panel cholesterol 170, LDL 99, HDL 49 and triglycerides 106. Patient on Lipitor 80 mg daily. Patient was given aspirin 325mg once in the ED and was started on aspirin 325 daily by ED physician. Because of evidence of ICA stenosis, we will place on Plavix 75 mg daily as well. Every 4 hours neurochecks Cardiac monitoring PT OT and [employer] are consulted Consider nephrology consultation for the hyponatremia Will defer the rest of the medical management to primary and other specialist For DVT prophylaxis, patient on subcu heparin 5000 units every 12 hour
--- NOTE | 2024-02-09 10:16 | CT ---
EXAMINATION TYPE: CT brain wo con DATE OF EXAM: 02/09/2024 COMPARISON: 02/07/2024 INDICATION: CONFUSION DLP: 1154.4 mGycm, Automated exposure control for dose reduction was used. CONTRAST: None CT of the brain is performed utilizing 3 mm thick sections through the posterior fossa and 3 mm thick sections through the remaining calvarium. Study is performed within 24 hours of arrival to the hosp ital. No abnormal hyperdensity is present to suggest an acute intracranial hemorrhage. No mass lesion is evident. No acute infarcts are evident. Mild periventricular white matter hypodensity is present, likely on th e basis of chronic white matter ischemic change. No significant interval change from the comparison Ventricles and sulci are appropriate for the patient age. Paranasal sinuses and mastoid air cells within the [id number] are clear. IMPRESSION: 1. No acute intracranial process. Follow up MRI can be performed as clinically indicated. 2. Atrophy with mild chronic appearing periventricular white matter ischemic changes.
--- NOTE | 2024-02-09 11:04 | P.PN ---
Subjective Progress Note Date: 02/09/24 Patient seen and examined. No complaints. No concerns at this time, questioning when he is able to go home Objective - Vital Signs Vital signs: Vital Signs Temp 97.7 F 02/09/24 08:00 Pulse 60 02/09/24 08:00 Resp 20 02/09/24 08:00 BP 173/88 02/09/24 08:00 Pulse Ox 98 02/09/24 08:00 FiO2 Intake & Output 02/08/24 02/09/24 02/09/24 18:59 06:59 18:59 Intake Total 598 540 Output Total 100 200 100 Balance 498 340 -100 Weight 98 kg Intake: Oral 598 540 Output: Urine 100 200 100 Other: Voiding Method Toilet Urinal # Voids 2 1 - Exam No acute distress resting comfortably. In the chair at the bedside. Motor or sensory intact. Cranial nerves II through XII grossly intact. No respiratory distress. - Labs CBC & Chem 7: 02/08/24 07:43 02/09/24 07:33 Labs: Abnormal Lab Results - Last 24 Hours (Table) 02/09/24 Range/Units 07:33 Sodium 125 L (137-145) mmol/L Chloride 96 L (98-107) mmol/L Carbon Dioxide 21 L (22-30) mmol/L BUN 7 L (9-20) mg/dL Creatinine 0.52 L (0.66-1.25) mg/dL Calcium 8.2 L (8.4-10.2) mg/dL Assessment and Plan Assessment: Bilateral carotid artery stenosis, 50 to 69% per ultrasound Confusion No obvious strokelike symptoms at this time, awaiting MRI Plan: Reviewed carotid Doppler, reports of 50 to 69% stenosis, given velocities, likely much closer to 50% and per updated criteria with these velocities he would be less than 50% stenosis. From my standpoint doubt need for carotid intervention. Await further recommendations per neurology. Will follow-up as outpatient for carotid surveillance.
--- NOTE | 2024-02-09 16:42 | P.PN ---
Subjective Progress Note Date: 02/09/24 83-year-old patient, history of hypertension, hyperlipidemia, hypothyroidism, atrial fibrillation, coronary artery disease, who presented emergency department because of confusion. According to the patient was confused yesterday morning and improved by nighttime. She stated that he was just not himself and was very sleepy. Patient denies any focal weakness, numbness, visual disturbance, speech difficulty. Had mild confusion over the last 2-3 weeks but was mild leg weakness mostly in the morning. No jerking of any extremity, no bowel incontinence no tongue bite. No history of seizures. feels he patient has not been as sharp in the last 1 year. No official diagnosis of dementia. Patient had a recent ureteral artificial sphincter placed about a month ago and then when he followed up recently with his surgeon to activate the urethral sphincter he was notified to hold off since patient has been having recent confusion. Patient has a history of skin cancer and in the last 2 weeks started on chemotherapy over the left face. does not know exactly what kind of skin cancer but for sure it is not melanoma. No history of strokes in the past. --workup completed in the ER: Blood work completed in ED reveals a WBC of 2.5, hemoglobin of 13.7 and platelet count of 176, sodium 126 0.7, BUN/CREATININE 15/0.70 AND BLOOD GLUCOSE OF 97 CT of the head is reported as degenerative changes with no acute hemorrhage. I reviewed the CT and there is no acute or subacute ischemia. There is no bleed. CT angiography is reported as severe bilateral proximal ICA stenosis. Diminished enhancement of the left vertebral artery reference axial image 19 through 27 with distal reconstitution. Could not exclude a thrombus within the left vertebral artery Objective - Vital Signs Vital signs: Vital Signs Temp 98 F 02/08/24 08:00 Pulse 50 L 02/08/24 08:00 Resp 20 02/08/24 08:00 BP 148/73 02/08/24 08:00 Pulse Ox 96 02/08/24 08:00 FiO2 Intake & Output 02/07/24 02/08/24 02/08/24 18:59 06:59 18:59 Intake Total 540 240 Output Total 100 Balance 540 140 Weight 102.058 kg 98.5 kg Intake: Oral 540 240 Output: Urine 100 Other: Voiding Method Toilet Urinal # Voids 1 - Exam General appearance: alert, in no apparent distress Head exam: Present: atraumatic, normocephalic, normal inspection Eye exam: Present: normal appearance, PERRL, EOMI. Absent: scleral icterus, conjunctival injection, periorbital swelling ENT exam: Present: normal exam, mucous membranes moist Neck exam: Present: normal inspection. Absent: tenderness, meningismus, lymphadenopathy Respiratory exam: Present: normal lung sounds bilaterally. Absent: respiratory distress, wheezes, rales, rhonchi, stridor Cardiovascular Exam: Present: regular rate, normal rhythm, normal heart sounds. Absent: systolic murmur, diastolic murmur, rubs, gallop, clicks GI/Abdominal exam: Present: soft, normal bowel sounds. Absent: distended, tenderness, guarding, rebound, rigid Extremities exam: Present: normal inspection, full ROM, normal capillary refill. Absent: tenderness, pedal edema, joint swelling, calf tenderness Back exam: Present: normal inspection Neurological exam: Present: alert, oriented X3, CN II-XII intact Psychiatric exam: Present: normal affect, normal mood Skin exam: Present: warm, dry, intact, normal color. Absent: rash - Labs CBC & Chem 7: 02/08/24 07:43 02/09/24 07:33 Labs: Abnormal Lab Results - Last 24 Hours (Table) 02/07/24 02/07/24 02/08/24 Range/Units 10:45 10:45 07:43 WBC 2.5 L (3.8-10.6) k/uL Lymphocytes # 0.8 L (1.0-4.8) k/uL Sodium 126 L 128 L (137-145) mmol/L Chloride 97 L 97 L (98-107) mmol/L Creatinine 0.59 L (0.66-1.25) mg/dL Calcium 8.3 L 8.1 L (8.4-10.2) mg/dL 02/08/24 Range/Units 07:43 WBC 3.4 L (3.8-10.6) k/uL Lymphocytes # (1.0-4.8) k/uL Sodium (137-145) mmol/L Chloride (98-107) mmol/L Creatinine (0.66-1.25) mg/dL Calcium (8.4-10.2) mg/dL Assessment and Plan Assessment: 1. Hyponatremia -Patient has been placed on IV fluids in form of normal saline at a rate of 75 cc an hour; will monitor strict RICARDO's; monitor electrolytes -Order serum and urine osmolality, urine sodium level -- Further recommendations pending clinical course 2. Altered mental status likely metabolic encephalopathy related to hyponatremia/CVA -Patient has been placed on IV fluids and as indicated above -Workup completed in ED reveals a CT of the head which is reported as degenerative changes with right -We will monitor neurochecks; monitor sodium levels closely and make adjustments in fluid -Neurology recommending repeat CT head in 48 hours -Patient has been placed on aspirin and Lipitor 80 mg nightly -Order 2D echo, TSH vitamin B12 and folic acid levels; Monia level is ordered -Consult PT/OT/SIDE DOOR WORKER -Continuous cardiac monitoring; permissive hypertension 3. Bilateral proximal ICA stenosis; with diminished enhancement of left vertebral artery on CT angiography; left vertebral artery thrombus cannot be ruled out -Patient has been evaluated by neurology and given carotid stenosis on CTA, recommending MRI as well as MRA of the brain if artificial urethral sphincter is compatible with MRI 4. Hypertension; takes Cozaar at home which is placed on hold for permissive hypertension 5. Hypothyroidism; thyroxine 75 mcg daily 6. Hyperlipidemia; Lipitor 80 mg p.o. nightly 7. Depression; Zoloft 100 mg daily DVT prophylaxis; heparin per recommendation of neurology CODE STATUS; full code
--- NOTE | 2024-02-09 16:45 | P.PN ---
Subjective Progress Note Date: 02/09/24 83-year-old patient, history of hypertension, hyperlipidemia, hypothyroidism, atrial fibrillation, coronary artery disease, who presented emergency department because of confusion. According to the patient was confused yesterday morning and improved by nighttime. She stated that he was just not himself and was very sleepy. Patient denies any focal weakness, numbness, visual disturbance, speech difficulty. Had mild confusion over the last 2-3 weeks but was mild leg weakness mostly in the morning. No jerking of any extremity, no bowel incontinence no tongue bite. No history of seizures. feels he patient has not been as sharp in the last 1 year. No official diagnosis of dementia. Patient had a recent ureteral artificial sphincter placed about a month ago and then when he followed up recently with his surgeon to activate the urethral sphincter he was notified to hold off since patient has been having recent confusion. Patient has a history of skin cancer and in the last 2 weeks started on chemotherapy over the left face. does not know exactly what kind of skin cancer but for sure it is not melanoma. No history of strokes in the past. --workup completed in the ER: Blood work completed in ED reveals a WBC of 2.5, hemoglobin of 13.7 and platelet count of 176, sodium 126 0.7, BUN/CREATININE 15/0.70 AND BLOOD GLUCOSE OF 97 CT of the head is reported as degenerative changes with no acute hemorrhage. I reviewed the CT and there is no acute or subacute ischemia. There is no bleed. CT angiography is reported as severe bilateral proximal ICA stenosis. Diminished enhancement of the left vertebral artery reference axial image 19 through 27 with distal reconstitution. Could not exclude a thrombus within the left vertebral artery 02/09/2024 Patient is seen and evaluated sitting up in bedside chair; eager to be discharged Vital signs are reviewed and stable with temperature 97.9, pulse 60, respiration 20 and blood pressure 173/88 -Carotid Doppler completed and reveals bilateral carotid artery stenosis of 50 to 69%; vascular surgery on board, given velocities stenosis likely closer to 50%; no intervention recommended at this time 2D echo revealed LVEF 50 to 55%. Abnormal/paradoxical septal motion consistent with postoperative state. No obvious regional wall motion abnormalities. Severe right ventricular dilation. Moderate mitral calcification. Moderate to severe posteriorly directed MR. Mild AAS. Moderate TR. TSH 2.44, vitamin B12 321, folate 10.40, ammonia level < 9. We will start B12 [address] Woods has ordered a routine EEG for his episode of confusion and that would not be done until Saturday. Lipid Panel cholesterol 170, LDL 99, HDL 49 and triglycerides 106. Patient on Lipitor 80 mg daily. Patient was given aspirin 325mg once in the ED and was started on aspirin 325 daily by ED physician. Because of evidence of ICA stenosis, we will place on Plavix 75 mg daily as well. Objective - Vital Signs Vital signs: Vital Signs Temp 97.7 F 02/09/24 08:00 Pulse 60 02/09/24 08:00 Resp 20 02/09/24 08:00 BP 173/88 02/09/24 08:00 Pulse Ox 98 02/09/24 08:00 FiO2 Intake & Output 02/08/24 02/09/24 02/09/24 18:59 06:59 18:59 Intake Total 598 540 Output Total 100 200 100 Balance 498 340 -100 Weight 98 kg Intake: Oral 598 540 Output: Urine 100 200 100 Other: Voiding Method Toilet Urinal # Voids 2 1 - Exam General appearance: alert, in no apparent distress Head exam: Present: atraumatic, normocephalic, normal inspection Eye exam: Present: normal appearance, PERRL, EOMI. Absent: scleral icterus, conjunctival injection, periorbital swelling ENT exam: Present: normal exam, mucous membranes moist Neck exam: Present: normal inspection. Absent: tenderness, meningismus, lymphadenopathy Respiratory exam: Present: normal lung sounds bilaterally. Absent: respiratory distress, wheezes, rales, rhonchi, stridor Cardiovascular Exam: Present: regular rate, normal rhythm, normal heart sounds. Absent: systolic murmur, diastolic murmur, rubs, gallop, clicks GI/Abdominal exam: Present: soft, normal bowel sounds. Absent: distended, tenderness, guarding, rebound, rigid Extremities exam: Present: normal inspection, full ROM, normal capillary refill. Absent: tenderness, pedal edema, joint swelling, calf tenderness Back exam: Present: normal inspection Neurological exam: Present: alert, oriented X3, CN II-XII intact Psychiatric exam: Present: normal affect, normal mood Skin exam: Present: warm, dry, intact, normal color. Absent: rash - Labs CBC & Chem 7: 02/08/24 07:43 02/09/24 07:33 Labs: Abnormal Lab Results - Last 24 Hours (Table) 02/09/24 Range/Units 07:33 Sodium 125 L (137-145) mmol/L Chloride 96 L (98-107) mmol/L Carbon Dioxide 21 L (22-30) mmol/L BUN 7 L (9-20) mg/dL Creatinine 0.52 L (0.66-1.25) mg/dL Calcium 8.2 L (8.4-10.2) mg/dL Assessment and Plan Assessment: 1. Hyponatremia -Patient has been placed on IV fluids in form of normal saline at a rate of 75 cc an hour; will monitor strict RICARDO's; monitor electrolytes -Order serum and urine osmolality, urine sodium level -- Further recommendations pending clinical course 2. Altered mental status likely metabolic encephalopathy related to hyponatremia/CVA -Patient has been placed on IV fluids and as indicated above -Workup completed in ED reveals a CT of the head which is reported as degenerative changes with right -We will monitor neurochecks; monitor sodium levels closely and make adjustments in fluid -Neurology recommending repeat CT head in 48 hours -Patient has been placed on aspirin and Lipitor 80 mg nightly -Order 2D echo, TSH vitamin B12 and folic acid levels; Monia level is ordered -Consult PT/OT/FLAT SPRING ASSEMBLER -Continuous cardiac monitoring; permissive hypertension 3. Bilateral proximal ICA stenosis; with diminished enhancement of left vertebral artery on CT angiography; left vertebral artery thrombus cannot be ruled out -Patient has been evaluated by neurology and given carotid stenosis on CTA, recommending MRI as well as MRA of the brain if artificial urethral sphincter is compatible with MRI 4. Hypertension; takes Cozaar at home which is placed on hold for permissive hypertension 5. Hypothyroidism; thyroxine 75 mcg daily 6. Hyperlipidemia; Lipitor 80 mg p.o. nightly 7. Depression; Zoloft 100 mg daily DVT prophylaxis; heparin per recommendation of neurology CODE STATUS; full code
[2024-02-10 08:14] LABS: Basophils % (A) 0 %; Eosinophils % (A) 1 %; HCT 42.5 % (39.0-53.0); Lymphocytes % (A) 26 %; MCH 29.9 pg (25.0-35.0); MCHC 32.9 g/dL (31.0-37.0); MCV 90.9 fL (80.0-100.0); Mean Platelet Volume 8.2; Monocytes # (A) 0.4 k/uL (0-1.0); Monocytes % (A) 10 %; Neutrophils # (A) 2.4 k/uL (1.3-7.7); Neutrophils % (A) 61 %; Platelet Count 161 k/uL (150-450); RBC 4.67 m/uL (4.30-5.90); RDW 13.4 % (11.5-15.5)
[2024-02-10 08:38] LABS: African American GFR (CKD) >90 (>60 ml/min/1.73 sqM); Anion Gap 5 mmol/L; Blood Urea Nitrogen 7 mg/dL (9-20); Calcium 8.1 mg/dL (8.4-10.2); Carbon Dioxide 22 mmol/L (22-30); Chloride 94 mmol/L (98-107); Glucose 105 mg/dL (74-99); Magnesium 1.6 mg/dL (1.6-2.3); Non-African American GFR(CKD) >90 (>60 ml/min/1.73 sqM); Potassium 3.8 mmol/L (3.5-5.1); Sodium 121 mmol/L (137-145)
--- NOTE | 2024-02-10 11:00 | P.PN ---
Subjective 83-year-old patient, history of hypertension, hyperlipidemia, hypothyroidism, atrial fibrillation, coronary artery disease, who presented emergency department because of confusion. According to the patient was confused yesterday morning and improved by nighttime. She stated that he was just not himself and was very sleepy. Patient denies any focal weakness, numbness, visual disturbance, speech difficulty. Had mild confusion over the last 2-3 weeks but was mild leg weakness mostly in the morning. No jerking of any extremity, no bowel incontinence no tongue bite. No history of seizures. feels he patient has not been as sharp in the last 1 year. No official diagnosis of dementia. Patient had a recent ureteral artificial sphincter placed about a month ago and then when he followed up recently with his surgeon to activate the urethral sphincter he was notified to hold off since patient has been having recent confusion. Patient has a history of skin cancer and in the last 2 weeks started on chemotherapy over the left face. does not know exactly what kind of skin cancer but for sure it is not melanoma. No history of strokes in the past. --workup completed in the ER: Blood work completed in ED reveals a WBC of 2.5, hemoglobin of 13.7 and platelet count of 176, sodium 126 0.7, BUN/CREATININE 15/0.70 AND BLOOD GLUCOSE OF 97 CT of the head is reported as degenerative changes with no acute hemorrhage. I reviewed the CT and there is no acute or subacute ischemia. There is no bleed. CT angiography is reported as severe bilateral proximal ICA stenosis. Diminished enhancement of the left vertebral artery reference axial image 19 through 27 with distal reconstitution. Could not exclude a thrombus within the left vertebral artery 02/09/2024 Patient is seen and evaluated sitting up in bedside chair; eager to be discharged Vital signs are reviewed and stable with temperature 97.9, pulse 60, respiration 20 and blood pressure 173/88 -Carotid Doppler completed and reveals bilateral carotid artery stenosis of 50 to 69%; vascular surgery on board, given velocities stenosis likely closer to 50%; no intervention recommended at this time 2D echo revealed LVEF 50 to 55%. Abnormal/paradoxical septal motion consistent with postoperative state. No obvious regional wall motion abnormalities. Severe right ventricular dilation. Moderate mitral calcification. Moderate to severe posteriorly directed MR. Mild AAS. Moderate TR. TSH 2.44, vitamin B12 321, folate 10.40, ammonia level < 9. We will start B12 [address] Woods has ordered a routine EEG for his episode of confusion and that would not be done until Saturday. Lipid Panel cholesterol 170, LDL 99, HDL 49 and triglycerides 106. Patient on Lipitor 80 mg daily. Patient was given aspirin 325mg once in the ED and was started on aspirin 325 daily by ED physician. Because of evidence of ICA stenosis, we will place on Plavix 75 mg daily as well. 02/10/24 This is a pleasant 83 years old male who presents with acute stroke related to his left leg weakness and hyponatremia. Patient lying in chair looks comfortable No headache dizziness, he moves both arms and legs symmetrically and freely No chest pain or dyspnea His sodium today was lower 121, nephrology team on the case, placed patient on fluid restriction, blood pressure slightly elevated, we will add norvasc 5 mg from tomorrow given his permissive hypertension relat ed to his acute stroke Also patient has evidence of bilateral carotid artery disease and stenosis 50 to 69%, evaluated by Dr. Granados recommended outpatient follow-up Review of systems CONSTITUTIONAL: No fever, no malaise, no fatigue. HEENT: No recent visual problems or hearing problems. Denied any sore throat. HEMATOLOGICAL: Denies any bleeding or petechiae. GENITOURINARY: Denies any burning micturition, frequency, or urgency. MUSCULOSKELETAL/RHEUMATOLOGICAL: Denies any joint pain, swelling, or any muscle pain. ENDOCRINE: Denies any polyuria or polydipsia. Active Medications Generic Name Dose Route Start Last Admin Trade Name Freq PRN Reason Stop Dose Admin Ascorbic Acid 1,000 mg 02/08/24 09:00 02/10/24 08:58 Ascorbic Acid 500 Mg Tab PO 1,000 mg DAILY KEVIN Administration Aspirin 325 mg 02/08/24 09:00 02/10/24 08:58 Aspirin 325 Mg Tab PO 325 mg DAILY KEVIN Administration Atorvastatin Calcium 80 mg 02/07/24 21:00 02/09/24 20:29 Atorvastatin 80 Mg Tab PO Not Given HS KEVIN Cholecalciferol 50 mcg 02/08/24 09:00 02/10/24 08:58 Cholecalciferol 25 Mcg (1000 Iu) Tablet PO 50 mcg DAILY KEVIN Administration Clopidogrel Bisulfate 75 mg 02/08/24 13:00 02/10/24 08:58 Clopidogrel 75 Mg Tab PO 75 mg DAILY KEVIN Administration Heparin Sodium (Porcine) 5,000 unit 02/07/24 21:00 02/10/24 08:58 Heparin Sodium,Porcine 5,000 Unit/Ml 1 Ml Vial SQ 5,000 unit Q12HR KEVIN Administration Levothyroxine Sodium 75 mcg 02/08/24 09:00 02/10/24 08:58 Levothyroxine 75 Mcg Tab PO 75 mcg DAILY KEVIN Administration Pantoprazole Sodium 40 mg 02/08/24 09:00 02/10/24 08:58 Pantoprazole 40 Mg Tablet PO 40 mg DAILY KEVIN Administration Pyridoxine HCl 100 mg 02/08/24 09:00 02/10/24 08:58 Pyridoxine 50 Mg Tab PO 100 mg DAILY KEVIN Administration Sertraline HCl 100 mg 02/08/24 21:00 02/09/24 20:33 Sertraline 100 Mg Tab PO 100 mg HS KEVIN Administration Objective - Vital Signs Vital signs: Vital Signs Temp 98.1 F 02/10/24 08:00 Pulse 65 02/10/24 08:00 Resp 16 02/10/24 08:00 BP 164/81 02/10/24 08:00 Pulse Ox 98 02/10/24 08:00 FiO2 Intake & Output 02/09/24 02/10/24 02/10/24 18:59 06:59 18:59 Intake Total 684 540 Output Total 350 Balance 334 540 Intake: Intake, IV Titration 240 540 Amount Sodium Chloride 0.9% 1, 240 540 000 ml @ 100 mls/hr IV . Q10H KEVIN Rx#:[id number] Oral 444 Output: Urine 350 Other: Voiding Method Toilet Urinal # Voids 1 1 - Exam -GENERAL: The patient is alert and oriented x3, not in any acute distress. Well developed, well nourished. Obese HEENT: Pupils are round and equally reacting to light. EOMI. No scleral icterus. No conjunctival pallor. Normocephalic, atraumatic. No pharyngeal erythema. No thyromegaly. CARDIOVASCULAR: S1 and S2 present. No murmurs, rubs, or gallops. PULMONARY: Chest is clear to auscultation, no wheezing , no crackles. ABDOMEN: Soft, nontender, nondistended, normoactive bowel sounds. No palpable organomegaly. MUSCULOSKELETAL: No joint swelling or deformity. EXTREMITIES: No cyanosis, clubbing, or pedal edema. NEUROLOGICAL: Gross neurological examination did not reveal any focal deficits. SKIN: No rashes. no petechiae. - Labs CBC & Chem 7: 02/10/24 07:55 02/10/24 07:55 Labs: Abnormal Lab Results - Last 24 Hours (Table) 02/10/24 Range/Units 07:55 Sodium 121 L (137-145) mmol/L Chloride 94 L (98-107) mmol/L BUN 7 L (9-20) mg/dL Creatinine 0.53 L (0.66-1.25) mg/dL Glucose 105 H (74-99) mg/dL Calcium 8.1 L (8.4-10.2) mg/dL Assessment and Plan Assessment: 1. Hyponatremia -Patient has been placed on IV fluids in form of normal saline at a rate of 75 cc an hour; will monitor strict RICARDO's; monitor electrolytes -Order serum and urine osmolality, urine sodium level -- Further recommendations pending clinical course 2. Altered mental status likely metabolic encephalopathy related to hyponatremia/CVA -Patient has been placed on IV fluids and as indicated above -Workup completed in ED reveals a CT of the head which is reported as degenerative changes with right -We will monitor neurochecks; monitor sodium levels closely and make adjustments in fluid -Neurology recommending repeat CT head in 48 hours -Patient has been placed on aspirin and Lipitor 80 mg nightly -Order 2D echo, TSH vitamin B12 and folic acid levels; Monia level is ordered -Consult PT/OT/RESPIRATORY ASSISTANT -Continuous cardiac monitoring; permissive hypertension 3. Bilateral proximal ICA stenosis; with diminished enhancement of left vertebral artery on CT angiography; left vertebral artery thrombus cannot be ruled out -Patient has been evaluated by neurology and given carotid stenosis on CTA, recommending MRI as well as MRA of the brain if artificial urethral sphincter is compatible with MRI 4. Hypertension; takes Cozaar at home which is placed on hold for permissive hypertension 5. Hypothyroidism; thyroxine 75 mcg daily 6. Hyperlipidemia; Lipitor 80 mg p.o. nightly 7. Depression; Zoloft 100 mg daily DVT prophylaxis; heparin per recommendation of neurology CODE STATUS; full code
--- NOTE | 2024-02-10 11:49 | P.NPCON ---
History of Present Illness - Reason for Consult hyponatremia - History of Present Illness Patient is an 83-year-old male with history of hypertension, chronic A-fib who is admitted to the hospital with mental status changes and increased weakness. History of skin cancer with reaction to topical medication on the left side of the face. Serum sodium was 126 on admission and improved to 128. Yesterday dropped back to 125 and is 121 today. Patient has been maintained on normal saline which was decreased to KVO last night. No significant complaints of shortness of breath. Patient does have chronic lower extremity swelling. No diuretics noted on home med list. No reports of nausea vomiting or diarrhea. Blood pressure is not low. Review of Systems As per HPI Past Medical History Past Medical History: Atrial Fibrillation, Coronary Artery Disease (CAD), Cancer, Chest Pain / Angina, GERD/Reflux, Hyperlipidemia, Hypertension, Myocar dial Infarction (NM), Osteoarthritis (OA), Prostate Disorder, Sleep Apnea/CPAP/BIPAP, Thyroid Disorder Additional Past Medical History / Comment(s): Hypothyroid, hyperactive bladder, A. fib (refuses anticoagulation). SEPTIC ARTHRITIS. diverticulosis Last Myocardial Infarction Date:: unknown History of Any Multi-Drug Resistant Organisms: None Reported Past Surgical History: Heart Catheterization, Tonsillectomy Additional Past Surgical History / Comment(s): radioactive seed implants for prostate cancer, cataracts removed-lens implants, bladder control device implanted 07-10-17 and removed 07-18-18, colonoscopy/polypectomy-benign. bilateral hip replaced. bone infection post op right hip. Past Anesthesia/Blood Transfusion Reactions: No Reported Reaction Additional Past Anesthesia/Blood Transfusion Reaction / Comment(s): has never had any blood transfusion Past Psychological History: No Psychological Hx Reported Smoking Status: Former smoker Past Alcohol Use History: Daily Past Drug Use History: None Reported - Past Family History Mother Family Medical History: Cancer Additional Family Medical History / Comment(s): from colon cancer at age 60 Father Family Medical History: Liver Disease Additional Family Medical History / Comment(s): from cirrhosis of the liver at age 59 they felt it was d/t farming chemicals 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 Medications and Allergies Home Medications Medication Instructions Recorded Confirmed Type Levothyroxine Sodium [Levoxyl] 75 mcg PO DAILY 07/22/18 02/07/24 History Pantoprazole Sodium [Protonix] 40 mg PO DAILY 11/01/20 02/07/24 History Ascorbic Acid [Vitamin C] 1,000 mg PO DAILY 01/03/23 02/07/24 History Aspirin EC [Ecotrin Low Dose] 81 mg PO DAILY 01/03/23 02/07/24 History Astaxanthin 4 mg PO DAILY 01/03/23 02/07/24 History Bitter Melon Supplement (Unknown 1 dose PO DAILY 01/03/23 02/07/24 History Strength) Butterbur Supplement 1 dose PO DAILY 01/03/23 02/07/24 History Calcium Carbonate [Calcium] 1,200 mg PO DAILY 01/03/23 02/07/24 History Chlorella 500mg Supplement 500 mg PO DAILY 01/03/23 02/07/24 History Cholecalciferol [Vitamin D3 (25 50 mcg PO DAILY 01/03/23 02/07/24 History Mcg = 1000 Iu)] Chromemate Supplement 1 cap PO DAILY 01/03/23 02/07/24 History Cilantro Supplement (Unknown 1 dose PO DAILY 01/03/23 02/07/24 History Strength) L.acidoph,Paracasei, B.lactis 1 cap PO DAILY 01/03/23 02/07/24 History [Probiotic] Loperamide HCl [Imodium A-D] 2 - 4 mg PO QID PRN 01/03/23 02/07/24 History Lycopene 10 mg PO DAILY 01/03/23 02/07/24 History Melatonin 5 mg PO HS 01/03/23 02/07/24 History Convent-3 Fatty Acids [Convent-3] 1,000 mg PO DAILY 01/03/23 02/07/24 History Pyridoxine HCl (Vitamin B6) 100 mg PO DAILY 01/03/23 02/07/24 History [Vitamin B-6] Red Yeast Rice 600 mg PO DAILY 01/03/23 02/07/24 History Sertraline [Zoloft] 100 mg PO DAILY 01/03/23 02/07/24 History Thc Gummy 5mg 5 mg PO HS 01/03/23 02/07/24 History Turmeric Root Extract [Turmeric] 500 mg PO DAILY 01/03/23 02/07/24 History Ubidecarenone [Co Q-10] 300 mg PO DAILY 01/03/23 02/07/24 History Zinc Gluconate [Zinc] 50 mg PO DAILY 01/03/23 02/07/24 History Imiquimod [Aldara] 1 packet TOPICAL DIRECTED 02/07/24 02/07/24 History Losartan [Cozaar] 25 mg PO DAILY 02/07/24 02/07/24 History Allergies Allergy/AdvReac Type Severity Reaction Status Date / Time [id number] Reductase AdvReac Severe Rash/Hives Verified 02/07/24 10:26 Inhibitor [Dapzsdk-Dys-Myi Reductase Inhibitor] Physical Exam Vitals: Vital Signs Temp Pulse Resp BP Pulse Ox 02/10/24 08:00 98.1 F 65 16 164/81 98 02/10/24 04:00 55 L 16 184/81 96 02/10/24 00:00 64 16 182/98 98 02/09/24 20:00 98.3 F 70 16 167/87 96 02/09/24 16:00 97.6 F 50 L 20 169/86 98 Intake and Output 02/09/24 02/10/24 02/10/24 22:59 06:59 14:59 Intake Total 684 540 240 Balance 684 540 240 Intake: Intake, IV Titration 240 540 Amount Sodium Chloride 0.9% 1, 240 540 000 ml @ 100 mls/hr IV . Q10H [facility] Rx#:[id number] Oral 444 240 Other: Voiding Method Toilet Toilet Urinal Urinal # Voids 1 Patient is awake, comfortable, no acute distress. Examination of the heart S1 and S2 Examination of the lungs decreased breath sounds at the bases Abdomen is soft nontender Examination of lower extremities shows bilateral legs to be wrapped. 1+ edema noted. 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 Results - Lab Results Most recent lab results Calcium 8.1 mg/dL (8.4-10.2) L 02/10/24 07:55 Magnesium 1.6 mg/dL (1.6-2.3) 02/10/24 07:55 02/10/24 07:55 02/10/24 07:55 Assessment and Plan Assessment: 1. Hyponatremia, mildly hypervolemic. Agree with discontinuation of IV fluids. Check urine osmolality and random urine sodium. I will add IV Lasix if repeat sodium is further decreased. 2. Altered mentation likely metabolic encephalopathy versus CVA. 3. Hypothyroidism, TSH 2.4 4. History of skin cancer on the left side of the face with significant skin reaction noted on the cheek Plan: DC IV fluids Repeat sodium IV Lasix if serum sodium is further decreased Follow-up on urine sodium and urine osmolality. At fluid restriction. Thank you for the consultation. I will continue to follow the patient with you during his hospitalization.
--- NOTE | 2024-02-10 12:25 | P.PN ---
Subjective Progress Note Date: 02/09/24 02/09/2024: Patient was seen for a follow-up. Patient is sitting comfortably in the side of the bed. Offers no new complaints. Denies headache. 02/08/2024: Patient was initially seen by Dr. Moreno Woods. Please refer to his note for details. Patient is a 83-year-old male with recent episode of confusion. Patient was found to have bilateral ICA stenosis on the CTA and left vertebral artery was diminished. Vascular surgery has been consulted. Patient at present is laying in the bed. He denies any headache. He denies any strokelike symptoms at this time. He has a rash on the left side of the cheek. Some of the workup during this hospital visit consisted of: Patient on presentation is 149/71 with a heart rate of 56. Temperature is 98.2 F. The rate is 18 and pulse ox is 97 at room air. Sodium is 126. I reviewed his sodium level in the past and it was never as low as this. Calcium is 8.3 Serum glucose 95 BUN/creatinine normal. CK level is 92. Alcohol is less than 10. CT of the head is reported as degenerative changes with no acute hemorrhage. I reviewed the CT and there is no acute or subacute ischemia. There is no bleed. CT angiography is reported as severe bilateral proximal ICA stenosis. Diminished enhancement of the left vertebral artery reference axial image 19 through 27 with distal reconstitution. Could not exclude a thrombus within the left vertebral artery recommend MRI/MRA Objective - Vital Signs Vital signs: Vital Signs Temp 98.1 F 02/09/24 11:27 Pulse 65 02/09/24 11:27 Resp 20 02/09/24 11:27 BP 180/80 02/09/24 11:27 Pulse Ox 97 02/09/24 11:27 FiO2 Intake & Output 02/08/24 02/09/24 02/09/24 18:59 06:59 18:59 Intake Total 598 540 Output Total 100 200 350 Balance 498 340 -350 Weight 98 kg Intake: Oral 598 540 Output: Urine 100 200 350 Other: Voiding Method Toilet Urinal # Voids 2 1 - Exam On examination patient is alert and awake. Speech and language functions are normal. No aphasia or dysarthria. On cranial nerve examination pupils are equal, round and reactive to light, visual dejesus are full with no neglect. Face is symmetric. Tongue protrudes to midline. On muscles on testing there is no pronator drift and the strength is normal. Sensory touch is equal with no neglect. No ataxia in the upper limbs. - Labs CBC & Chem 7: 02/10/24 07:55 02/10/24 07:55 Labs: Abnormal Lab Results - Last 24 Hours (Table) 02/09/24 Range/Units 07:33 Sodium 125 L (137-145) mmol/L Chloride 96 L (98-107) mmol/L Carbon Dioxide 21 L (22-30) mmol/L BUN 7 L (9-20) mg/dL Creatinine 0.52 L (0.66-1.25) mg/dL Calcium 8.2 L (8.4-10.2) mg/dL Assessment and Plan Assessment: This is an 83-year-old gentleman with history of dyspnea since , bypass, a month ago had artificial ureteral sphincter, cancer and received chemotherapy 2 weeks ago on his face present emergency department because of confusion yesterday in which the felt he was confused sleepy yesterday from morning and improved by nighttime. Seems he has been more confused sleepy with leg weakness in last 2 to 3 weeks. Today he feels drastically better. CT of the head is unremarkable for any acute process. The sodium is 126 which he never had this low. Patient has not as been sharp in the last 1 year. Altered mental status seems more metabolic encephalopathy with a sodium of 126. Rule out stroke especially with severe bilateral proximal ICA stenosis as well as diminished enhancement of the left vertebral artery but I doubt stroke--current no focal deficit and is oriented X3 Bilateral proximal ICA stenosis as well as diminished enhancement of the left vertebral artery on CT angiography that reported but could not exlcude thrombus in left vertebral artery History of skin rash and received chemotherapy on left side of the face Urinary incontinence s/p Recent artificial urethral sphincter a month ago History of cardiac bypass Underlying dyspnea at baseline with exertion History of COVID-19 infection about 3 years ago Underlying history of hypercholestremia Plan: Repeat CT head performed today showed no acute intracranial process. Atrophy with mild chronic appearing periventricular white matter ischemic change. Await MRI of the brain. We will also check MRA of the neck. CT angiography head and neck is reported as severe bilateral proximal ICA stenosis. Diminished enhancement of the left vertebral artery reference axial image 19 through 27 with distal reconstitution. Could not exclude a thrombus within the left vertebral artery recommend MRI/MRA Vascular surgery team on board for the bilateral ICA stenosis. Discussed with Dr. Granados. They do not believe patient has significant stenosis, but awaiting MRI. 2D echo revealed LVEF 50 to 55%. Abnormal/paradoxical septal motion consistent with postoperative state. No obvious regional wall motion abnormalities. Severe right ventricular dilation. Moderate mitral calcification. Moderate to severe posteriorly directed MR. Mild AAS. Moderate TR. Carotid Doppler revealed 50 to 69% stenosis of bilateral carotid bifurcations. Antegrade flow in both vertebral arteries. TSH 2.44, vitamin B12 321, folate 10.40, ammonia level < 9. We will start B12 [address] Woods has ordered a routine EEG for his episode of confusion and that would not be done until Saturday. Lipid Panel cholesterol 170, LDL 99, HDL 49 and triglycerides 106. Patient on Lipitor 80 mg daily. Patient was given aspirin 325mg once in the ED and was started on aspirin 325 daily by ED physician. Because of evidence of ICA stenosis, we will place on Plavix 75 mg daily as well. Every 4 hours neurochecks Cardiac monitoring PT OT and TECHNICAL SERVICES ANALYST are consulted Consider nephrology consultation for the hyponatremia. Sodium continues to be low around 125 range Will defer the rest of the medical management to primary and other specialist For DVT prophylaxis, patient on subcu heparin 5000 units every 12 hour
[2024-02-10] MEDS: FUROSEMIDE 10 MG/ML 4 ML VIAL IV STA (15:30)
[2024-02-11 09:11] LABS: Basophils % (A) 0 %; Eosinophils % (A) 1 %; HCT 43.6 % (39.0-53.0); HGB 14.8 gm/dL (13.0-17.5); Lymphocytes # (A) 1.1 k/uL (1.0-4.8); Lymphocytes % (A) 26 %; MCH 30.6 pg (25.0-35.0); MCHC 33.8 g/dL (31.0-37.0); MCV 90.4 fL (80.0-100.0); Mean Platelet Volume 8.6; Monocytes # (A) 0.3 k/uL (0-1.0); Monocytes % (A) 7 %; Neutrophils # (A) 2.8 k/uL (1.3-7.7); Neutrophils % (A) 65 %; Platelet Count 173 k/uL (150-450); RBC 4.83 m/uL (4.30-5.90); RDW 13.7 % (11.5-15.5); WBC 4.3 k/uL (3.8-10.6)
[2024-02-11] MEDS: amLODIPine 5 MG TAB PO SCH (09:23)
[2024-02-11 09:32] LABS: African American GFR (CKD) >90 (>60 ml/min/1.73 sqM); Anion Gap 8 mmol/L; Blood Urea Nitrogen 9 mg/dL (9-20); Calcium 8.4 mg/dL (8.4-10.2); Carbon Dioxide 23 mmol/L (22-30); Chloride 91 mmol/L (98-107); Glucose 131 mg/dL (74-99); Non-African American GFR(CKD) >90 (>60 ml/min/1.73 sqM); Potassium 3.5 mmol/L (3.5-5.1); Sodium 122 mmol/L (137-145)
--- NOTE | 2024-02-11 10:32 | P.PN ---
Subjective Progress Note Date: 02/10/24 02/10/2024: Patient was seen for a follow-up. Patient is sitting comfortably on the side of the bed. Offers no new complaints. Denies any headache, no dizziness. No stroke symptoms. 02/09/2024: Patient was seen for a follow-up. Patient is sitting comfortably in the side of the bed. Offers no new complaints. Denies headache. 02/08/2024: Patient was initially seen by Dr. Moreno Woods. Please refer to his note for details. Patient is a 83-year-old male with recent episode of confusion. Patient was found to have bilateral ICA stenosis on the CTA and left vertebral artery was diminished. Vascular surgery has been consulted. Patient at present is laying in the bed. He denies any headache. He denies any strokelike symptoms at this time. He has a rash on the left side of the cheek. Some of the workup during this hospital visit consisted of: Patient on presentation is 149/71 with a heart rate of 56. Temperature is 98.2 F. The rate is 18 and pulse ox is 97 at room air. Sodium is 126. I reviewed his sodium level in the past and it was never as low as this. Calcium is 8.3 Serum glucose 95 BUN/creatinine normal. CK level is 92. Alcohol is less than 10. CT of the head is reported as degenerative changes with no acute hemorrhage. I reviewed the CT and there is no acute or subacute ischemia. There is no bleed. CT angiography is reported as severe bilateral proximal ICA stenosis. Diminished enhancement of the left vertebral artery reference axial image 19 through 27 with distal reconstitution. Could not exclude a thrombus within the left vertebral artery recommend MRI/MRA Objective - Vital Signs Vital signs: Vital Signs Temp 98.2 F 02/10/24 12:00 Pulse 76 02/10/24 15:26 Resp 16 02/10/24 15:26 BP 172/69 02/10/24 15:26 Pulse Ox 98 02/10/24 15:26 FiO2 Intake & Output 02/09/24 02/10/24 02/10/24 18:59 06:59 18:59 Intake Total 684 540 240 Output Total 350 Balance 334 540 240 Intake: Intake, IV Titration 240 540 Amount Sodium Chloride 0.9% 1, 240 540 000 ml @ 100 mls/hr IV . Q10H [facility] Rx#:[id number] Oral 444 240 Output: Urine 350 Other: Voiding Method Toilet Urinal # Voids 1 1 - Exam On examination patient is alert and awake. Speech and language functions are normal. No aphasia or dysarthria. On cranial nerve examination pupils are equal, round and reactive to light, visual dejesus are full with no neglect. Face is symmetric. Tongue protrudes to midline. On muscles on testing there is no pronator drift and the strength is normal. Sensory touch is equal with no neglect. No ataxia in the upper limbs. - Labs CBC & Chem 7: 02/11/24 08:32 02/11/24 08:32 Labs: Abnormal Lab Results - Last 24 Hours (Table) 02/10/24 02/10/24 Range/Units 07:55 11:52 Sodium 121 L 120 L (137-145) mmol/L Chloride 94 L (98-107) mmol/L BUN 7 L (9-20) mg/dL Creatinine 0.53 L (0.66-1.25) mg/dL Glucose 105 H (74-99) mg/dL Osmolality 256 L (275-295) mOsm/kg Calcium 8.1 L (8.4-10.2) mg/dL Assessment and Plan Assessment: This is an 83-year-old gentleman with history of dyspnea since , bypass, a month ago had artificial ureteral sphincter, cancer and received chemotherapy 2 weeks ago on his face present emergency department because of confusion yesterday in which the felt he was confused sleepy yesterday from morning and improved by nighttime. Seems he has been more confused sleepy with leg weakness in last 2 to 3 weeks. Today he feels drastically better. CT of the head is unremarkable for any acute process. The sodium is 126 which he never had this low. Patient has not as been sharp in the last 1 year. Altered mental status seems more metabolic encephalopathy with a sodium of 126. Rule out stroke especially with severe bilateral proximal ICA stenosis as well as diminished enhancement of the left vertebral artery but I doubt stroke--current no focal deficit and is oriented X3 Bilateral proximal ICA stenosis as well as diminished enhancement of the left vertebral artery on CT angiography that reported but could not exlcude thrombus in left vertebral artery History of skin rash and received chemotherapy on left side of the face Urinary incontinence s/p Recent artificial urethral sphincter a month ago History of cardiac bypass Underlying dyspnea at baseline with exertion History of COVID-19 infection about 3 years ago Underlying history of hypercholestremia Plan: Repeat CT head performed 02/09/2024 showed no acute intracranial process. Atrophy with mild chronic appearing periventricular white matter ischemic change. Await MRI of the brain. We will also check MRA of the neck. CT angiography head and neck is reported as severe bilateral proximal ICA stenosis. Diminished enhancement of the left vertebral artery reference axial image 19 through 27 with distal reconstitution. Could not exclude a thrombus within the left vertebral artery recommend MRI/MRA Vascular surgery team on board for the bilateral ICA stenosis. Discussed with Dr. Granados. They do not believe patient has significant stenosis, but awaiting M RI. 2D echo revealed LVEF 50 to 55%. Abnormal/paradoxical septal motion consistent with postoperative state. No obvious regional wall motion abnormalities. Severe right ventricular dilation. Moderate mitral calcification. Moderate to severe posteriorly directed MR. Mild AAS. Moderate TR. Carotid Doppler revealed 50 to 69% stenosis of bilateral carotid bifurcations. Antegrade flow in both vertebral arteries. TSH 2.44, vitamin B12 321, folate 10.40, ammonia level < 9. We will start B12 1000 mcg orally daily. EEG complete, results pending. Lipid Panel cholesterol 170, LDL 99, HDL 49 and triglycerides 106. Patient on Lipitor 80 mg daily. Patient was given aspirin 325mg once in the ED and was started on aspirin 325 daily by ED physician. Because of evidence of ICA stenosis, we will place on Plavix 75 mg daily as well. Every 4 hours neurochecks Cardiac monitoring PT OT and PAYROLL SECRETARY are consulted Consider nephrology consultation for the hyponatremia. Sodium continues to be low around 125 range Will defer the rest of the medical management to primary and other specialist For DVT prophylaxis, patient on subcu heparin 5000 units every 12 hour
--- NOTE | 2024-02-11 11:44 | P.PN ---
Subjective patient is seen for follow-up for hyponatremia, hypervolemic. Sodium is improving after discontinuation of IV fluids. Patient also received 1 dose of Lasix. sodium is 122 today. Patient denies any significant complaints. Objective - Vital Signs Vital signs: Vital Signs Temp 98.0 F 02/11/24 04:00 Pulse 56 L 02/11/24 08:00 Resp 16 02/11/24 08:00 BP 128/71 02/11/24 08:00 Pulse Ox 98 02/11/24 04:00 FiO2 Intake & Output 02/10/24 02/11/24 02/11/24 18:59 06:59 18:59 Intake Total 240 Output Total 450 Balance 240 -450 Weight 90.5 kg Intake: Oral 240 Output: Urine 450 Other: Voiding Method Urinal Urinal External Catheter External Catheter - Exam Patient is awake, comfortable, no acute distress. Examination of the heart S1 and S2 Examination of the lungs decreased breath sounds at the bases Abdomen is soft nontender Examination of lower extremities shows bilateral legs to be wrapped. 1+ edema noted. WATER PLANT OPERATOR exam grossly intact Significant skin reaction noted on the left side of the face mostly on the cheek with erythema and crusty lesions. - Labs CBC & Chem 7: 02/11/24 08:32 02/11/24 08:32 Labs: Abnormal Lab Results - Last 24 Hours (Table) 02/10/24 02/10/24 02/10/24 Range/Units 07:55 11:52 20:24 Sodium 120 L 121 L (137-145) mmol/L Chloride (98-107) mmol/L Creatinine (0.66-1.25) mg/dL Glucose (74-99) mg/dL Osmolality 256 L (275-295) mOsm/kg 02/11/24 Range/Units 08:32 Sodium 122 L (137-145) mmol/L Chloride 91 L (98-107) mmol/L Creatinine 0.62 L (0.66-1.25) mg/dL Glucose 131 H (74-99) mg/dL Osmolality (275-295) mOsm/kg Assessment and Plan Assessment: 1. Hyponatremia, mildly hypervolemic. sodium improved post discontinuation of IV fluids and patient received 1 dose of IV Lasix. 2. Altered mentation likely metabolic encephalopathy versus CVA. 3. Hypothyroidism, TSH 2.4 4. History of skin cancer on the left side of the face with significant skin reaction noted on the cheek Plan: continue off of IV fluids. Repeat IV Lasix 1. Repeat sodium later today.
--- NOTE | 2024-02-11 11:47 | P.PN ---
Subjective 83-year-old patient, history of hypertension, hyperlipidemia, hypothyroidism, atrial fibrillation, coronary artery disease, who presented emergency department because of confusion. According to the patient was confused yesterday morning and improved by nighttime. She stated that he was just not himself and was very sleepy. Patient denies any focal weakness, numbness, visual disturbance, speech difficulty. Had mild confusion over the last 2-3 weeks but was mild leg weakness mostly in the morning. No jerking of any extremity, no bowel incontinence no tongue bite. No history of seizures. feels he patient has not been as sharp in the last 1 year. No official diagnosis of dementia. Patient had a recent ureteral artificial sphincter placed about a month ago and then when he followed up recently with his surgeon to activate the urethral sphincter he was notified to hold off since patient has been having recent confusion. Patient has a history of skin cancer and in the last 2 weeks started on chemotherapy over the left face. does not know exactly what kind of skin cancer but for sure it is not melanoma. No history of strokes in the past. --workup completed in the ER: Blood work completed in ED reveals a WBC of 2.5, hemoglobin of 13.7 and platelet count of 176, sodium 126 0.7, BUN/CREATININE 15/0.70 AND BLOOD GLUCOSE OF 97 CT of the head is reported as degenerative changes with no acute hemorrhage. I reviewed the CT and there is no acute or subacute ischemia. There is no bleed. CT angiography is reported as severe bilateral proximal ICA stenosis. Diminished enhancement of the left vertebral artery reference axial image 19 through 27 with distal reconstitution. Could not exclude a thrombus within the left vertebral artery 02/09/2024 Patient is seen and evaluated sitting up in bedside chair; eager to be discharged Vital signs are reviewed and stable with temperature 97.9, pulse 60, respiration 20 and blood pressure 173/88 -Carotid Doppler completed and reveals bilateral carotid artery stenosis of 50 to 69%; vascular surgery on board, given velocities stenosis likely closer to 50%; no intervention recommended at this time 2D echo revealed LVEF 50 to 55%. Abnormal/paradoxical septal motion consistent with postoperative state. No obvious regional wall motion abnormalities. Severe right ventricular dilation. Moderate mitral calcification. Moderate to severe posteriorly directed MR. Mild AAS. Moderate TR. TSH 2.44, vitamin B12 321, folate 10.40, ammonia level < 9. We will start B12 [address] Woods has ordered a routine EEG for his episode of confusion and that would not be done until Saturday. Lipid Panel cholesterol 170, LDL 99, HDL 49 and triglycerides 106. Patient on Lipitor 80 mg daily. Patient was given aspirin 325mg once in the ED and was started on aspirin 325 daily by ED physician. Because of evidence of ICA stenosis, we will place on Plavix 75 mg daily as well. 02/10/24 This is a pleasant 83 years old male who presents with acute stroke related to his left leg weakness and hyponatremia. Patient lying in chair looks comfortable No headache dizziness, he moves both arms and legs symmetrically and freely No chest pain or dyspnea His sodium today was lower 121, nephrology team on the case, placed patient on fluid restriction, blood pressure slightly elevated, we will add norvasc 5 mg from tomorrow given his permissive hypertension relat ed to his acute stroke Also patient has evidence of bilateral carotid artery disease and stenosis 50 to 69%, evaluated by Dr. Granados recommended outpatient follow-up 02/11/24 Patient awake alert, no weakness numbness or other neurological symptom No headache or dizziness or confusion Sodium slightly improving 122 today after 1 dose of IV Lasix yesterday. Continue with fluid restriction Also patient on dual antiplatelet therapy with aspirin and Plavix by neurologist given his internal carotid artery disease, today I discussed with the patient and the need to follow-up with Dr. Granados vascular surgery as an outpatient and they are agreeable Also patient with left cheek cancer status post chemotherapy with his induction heat treater Dr. Ruby, patient intends to follow-up with him upon discharge in 2 weeks. Also has a cream to start using it by the end of the week. will bring the cream for his left cheek Blood pressure is better after adding Norvasc . Objective - Vital Signs Vital signs: Vital Signs Temp 98.0 F 02/11/24 04:00 Pulse 56 L 02/11/24 08:00 Resp 16 02/11/24 08:00 BP 128/71 02/11/24 08:00 Pulse Ox 98 02/11/24 04:00 FiO2 Intake & Output 02/10/24 02/11/24 02/11/24 18:59 06:59 18:59 Intake Total 240 Output Total 450 Balance 240 -450 Weight 90.5 kg Intake: Oral 240 Output: Urine 450 Other: Voiding Method Urinal Urinal External Catheter External Catheter - Exam -GENERAL: The patient is alert and oriented x3, not in any acute distress. Well developed, well nourished. Obese HEENT: Pupils are round and equally reacting to light. EOMI. No scleral icterus. No conjunctival pallor. Normocephalic, atraumatic. No pharyngeal erythema. No thyromegaly. CARDIOVASCULAR: S1 and S2 present. No murmurs, rubs, or gallops. PULMONARY: Chest is clear to auscultation, no wheezing , no crackles. ABDOMEN: Soft, nontender, nondistended, normoactive bowel sounds. No palpable organomegaly. MUSCULOSKELETAL: No joint swelling or deformity. EXTREMITIES: No cyanosis, clubbing, or pedal edema. NEUROLOGICAL: Gross neurological examination did not reveal any focal deficits. SKIN: No rashes. no petechiae. - Labs CBC & Chem 7: 02/11/24 08:32 02/11/24 08:32 Labs: Abnormal Lab Results - Last 24 Hours (Table) 02/10/24 02/10/24 02/10/24 Range/Units 07:55 11:52 20:24 Sodium 120 L 121 L (137-145) mmol/L Chloride (98-107) mmol/L Creatinine (0.66-1.25) mg/dL Glucose (74-99) mg/dL Osmolality 256 L (275-295) mOsm/kg 02/11/24 Range/Units 08:32 Sodium 122 L (137-145) mmol/L Chloride 91 L (98-107) mmol/L Creatinine 0.62 L (0.66-1.25) mg/dL Glucose 131 H (74-99) mg/dL Osmolality (275-295) mOsm/kg Assessment and Plan Assessment: 1. Hyponatremia -Patient has been placed on IV fluids DC IV fluid, s/p IV Lasix x 1 ur; will monitor strict RICARDO's; monitor electrolytes -Order serum and urine osmolality, urine sodium level -- Further recommendations pending clinical course 2. Altered mental status likely metabolic encephalopathy related to hyponatremia/CVA -Patient has been placed on IV fluids and as indicated above -Workup completed in ED reveals a CT of the head which is reported as degenerative changes with right -We will monitor neurochecks; monitor sodium levels closely and make adjustments in fluid -Neurology recommending repeat CT head in 48 hours -Patient has been placed on aspirin and Lipitor 80 mg nightly -Order 2D echo, TSH vitamin B12 and folic acid levels; Monia level is ordered -Consult PT/OT/HAZARDOUS MATERIALS HANDLER -Continuous cardiac monitoring; permissive hypertension 3. Bilateral proximal ICA stenosis; with diminished enhancement of left vertebral artery on CT angiography; left vertebral artery thrombus cannot be ruled out -Patient has been evaluated by neurology and given carotid stenosis on CTA, recommending MRI as well as MRA of the brain if artificial urethral sphincter is compatible with MRI 4. Hypertension; takes Cozaar at home which is placed on hold for permissive hypertension 5. Hypothyroidism; thyroxine 75 mcg daily 6. Hyperlipidemia; Lipitor 80 mg p.o. nightly 7. Depression; Zoloft 100 mg daily 8. Skin cancer of the left cheek he follow-up with induction heat treater as an outpatient, he had recent chemotherapy and there is some erythema and discoloration of the left cheek which is stable. will bring the cream to use by the end of the week. Patient and state that patient will follow-up in 2 weeks with his induction heat treater upon discharge DVT prophylaxis; heparin per recommendation of neurology CODE STATUS; full code
--- NOTE | 2024-02-11 12:07 | P.PN ---
Subjective Progress Note Date: 02/11/24 Principal diagnosis: Carotid stenosis Patient seen and examined today as a follow-up. No focal deficits. He denies any new changes or acute changes through the night. Awaiting MRI of the brain. Objective - Vital Signs Vital signs: Vital Signs Temp 98.0 F 02/11/24 04:00 Pulse 60 02/11/24 04:00 Resp 18 02/11/24 04:00 BP 168/69 02/11/24 04:00 Pulse Ox 98 02/11/24 04:00 FiO2 Intake & Output 02/10/24 02/11/24 02/11/24 18:59 06:59 18:59 Intake Total 240 Output Total 450 Balance 240 -450 Weight 90.5 kg Intake: Oral 240 Output: Urine 450 Other: Voiding Method Urinal External Catheter - Exam General appearance: The patient is alert, oriented, appears in no acute distress. HET: Head is normocephalic and atraumatic. Pupils are equal and reactive. Neck: Supple. Heart: Regular. Lungs: Equal expansion, normal respiratory effort. Abdomen: Soft, nondistended. Extremities: Normal skin color and turgor. Neurological: No focal deficits. Strength and sensation are grossly intact. - Labs CBC & Chem 7: 02/11/24 08:32 02/11/24 08:32 Labs: Abnormal Lab Results - Last 24 Hours (Table) 02/10/24 02/10/24 02/10/24 Range/Units 07:55 11:52 20:24 Sodium 120 L 121 L (137-145) mmol/L Osmolality 256 L (275-295) mOsm/kg Assessment and Plan Assessment: 1. Bilateral carotid artery stenosis, 50 to 69% per ultrasound, less than 50% by updated criteria 2. Confusion 3. No obvious strokelike symptoms at this time, awaiting MRI Plan: Reviewed carotid Doppler, reports of 50 to 69% stenosis, given velocities, likely much closer to 50% and per updated criteria with these velocities he would be less than 50% stenosis. From my standpoint doubt need for carotid intervention. Patient awaiting MRI. Await further recommendations per neurology. Will follow-up as outpatient for carotid surveillance, as was discussed with the patient. The impression and plan of care has been dictated as directed. I performed a history and examination of this patient, discussed the same with the dictator. I agree with the dictator's note ,documented as a scribe. Any additional findings or plans will be noted.
[2024-02-11] MEDS: FUROSEMIDE 10 MG/ML 4 ML VIAL IV STA (12:44)
--- NOTE | 2024-02-11 14:13 | EEG ---
ELECTROENCEPHALOGRAM REPORT PREAMBLE: This is an 83-year-old male, who came to the hospital for confusion. This study is performed to evaluate for any epileptiform activity. EEG FINDINGS: This is a 21-channel digital EEG recorded with video component, utilizing 10/20 international system with referential and bipolar montages. Background consists of well-developed, moderately well-regulated, mixed frequencies of predominantly 5-6 hertz theta, intermixed with some 8 hertz alpha activity seen in bihemispheric region. Background is posterior dominant and seems to be slightly reactive to eye opening and closing. Photic stimulation was not done. Hyperventilation was not done. Drowsiness was seen during later part of the study with continuous presence of theta frequency rhythm. Deeper stages of sleep were not seen. No focal or generalized epileptiform activity was seen. IMPRESSION: This is an abnormal EEG due to background slowing suggestive of mild encephalopathy. No focal, lateralized, or epileptiform activity was seen. MMODL / IJN: [id number] /
[2024-02-12 09:10] LABS: Basophils % (A) 0 %; Eosinophils % (A) 1 %; HCT 42.8 % (39.0-53.0); HGB 14.3 gm/dL (13.0-17.5); Lymphocytes # (A) 1.4 k/uL (1.0-4.8); Lymphocytes % (A) 27 %; MCHC 33.4 g/dL (31.0-37.0); Mean Platelet Volume 8.1; Monocytes # (A) 0.4 k/uL (0-1.0); Monocytes % (A) 9 %; Neutrophils # (A) 3.2 k/uL (1.3-7.7); Neutrophils % (A) 62 %; Platelet Count 195 k/uL (150-450); RBC 4.76 m/uL (4.30-5.90); RDW 13.2 % (11.5-15.5); WBC 5.1 k/uL (3.8-10.6)
[2024-02-12 09:36] LABS: African American GFR (CKD) >90 (>60 ml/min/1.73 sqM); Anion Gap 9 mmol/L; Blood Urea Nitrogen 13 mg/dL (9-20); Calcium 8.8 mg/dL (8.4-10.2); Carbon Dioxide 24 mmol/L (22-30); Chloride 88 mmol/L (98-107); Glucose 128 mg/dL (74-99); Non-African American GFR(CKD) >90 (>60 ml/min/1.73 sqM); Potassium 3.5 mmol/L (3.5-5.1); Sodium 121 mmol/L (137-145)
[2024-02-12] MEDS: TOLVAPTAN 15 MG TABLET PO ONE (10:08)
--- NOTE | 2024-02-12 11:54 | P.PN ---
Subjective Progress Note Date: 02/12/24 Principal diagnosis: Carotid stenosis Patient seen and examined today as a follow-up. No focal deficits. He denies any new changes or acute changes through the night. Awaiting MRI/MRA brain and neck. Patient and are very upset and frustrated that this has not been completed yet. Patient remains hyponatremic. Last sodium yesterday 120. Nephrology following. Objective - Vital Signs Vital signs: Vital Signs Temp 98.3 F 02/12/24 03:19 Pulse 55 L 02/12/24 03:19 Resp 19 02/12/24 03:19 BP 162/75 02/12/24 03:19 Pulse Ox 97 02/12/24 03:19 FiO2 Intake & Output 02/11/24 02/12/24 02/12/24 18:59 06:59 18:59 Intake Total 240 118 Output Total 300 500 Balance -60 -500 118 Weight 95.7 kg Intake: Oral 240 118 Output: Urine 300 500 Other: Voiding Method Urinal Urinal External Catheter External Catheter # Voids 2 - Exam General appearance: The patient is alert, oriented, appears in no acute distress. HET: Head is normocephalic and atraumatic. Pupils are equal and reactive. Neck: Supple. Heart: Regular. Lungs: Equal expansion, normal respiratory effort. Abdomen: Soft, nondistended. Extremities: Normal skin color and turgor. Neurological: No focal deficits. Strength and sensation are grossly intact. - Labs CBC & Chem 7: 02/12/24 08:50 02/12/24 08:50 Labs: Abnormal Lab Results - Last 24 Hours (Table) 02/10/24 02/11/24 02/11/24 Range/Units 17:52 08:32 17:44 Sodium 122 L 120 L (137-145) mmol/L Chloride 91 L (98-107) mmol/L Creatinine 0.62 L (0.66-1.25) mg/dL Glucose 131 H (74-99) mg/dL Urine Osmolality 283 L (400-1100) mOsm/kg Assessment and Plan Assessment: 1. Bilateral carotid artery stenosis, 50 to 69% per ultrasound, less than 50% by updated criteria 2. Confusion 3. No obvious strokelike symptoms at this time, awaiting MRI Plan: Reviewed carotid Doppler, reports of 50 to 69% stenosis, given velocities, likely much closer to 50% and per updated criteria with these velocities he would be less than 50% stenosis. From my standpoint doubt need for carotid intervention. Patient awaiting MRI. Await further recommendations per neurology. Continue to treat hyponatremia with recommendations from nephrology. Will follow-up as outpatient for carotid surveillance, as was discussed with the patient and his . No planned intervention at this time from vascular surgery. Patient is cleared from vascular surgery for discharge. We will sign off at this time. The impression and plan of care has been dictated as directed. Dr. Granados I performed a history and examination of this patient, discussed the same with the dictator. I agree with the dictator's note ,documented as a scribe. Any additional findings or plans will be noted.
--- NOTE | 2024-02-12 12:43 | P.PN ---
Subjective Progress Note Date: 02/11/24 02/11/2024: Patient was seen for a follow-up. Patient denies any change in his condition. Denies headache or dizziness. 02/10/2024: Patient was seen for a follow-up. Patient is sitting comfortably on the side of the bed. Offers no new complaints. Denies any headache, no dizzine ss. No stroke symptoms. 02/09/2024: Patient was seen for a follow-up. Patient is sitting comfortably in the side of the bed. Offers no new complaints. Denies headache. 02/08/2024: Patient was initially seen by Dr. Moreno Woods. Please refer to his note for details. Patient is a 83-year-old male with recent episode of confusion. Patient was found to have bilateral ICA stenosis on the CTA and left vertebral artery was diminished. Vascular surgery has been consulted. Patient at present is laying in the bed. He denies any headache. He denies any strokelike symptoms at this time. He has a rash on the left side of the cheek. Some of the workup during this hospital visit consisted of: Patient on presentation is 149/71 with a heart rate of 56. Temperature is 98.2 F. The rate is 18 and pulse ox is 97 at room air. Sodium is 126. I reviewed his sodium level in the past and it was never as low as this. Calcium is 8.3 Serum glucose 95 BUN/creatinine normal. CK level is 92. Alcohol is less than 10. CT of the head is reported as degenerative changes with no acute hemorrhage. I reviewed the CT and there is no acute or subacute ischemia. There is no bleed. CT angiography is reported as severe bilateral proximal ICA stenosis. Diminished enhancement of the left vertebral artery reference axial image 19 through 27 with distal reconstitution. Could not exclude a thrombus within the left vertebral artery recommend MRI/MRA Objective - Vital Signs Vital signs: Vital Signs Temp 98.0 F 02/11/24 04:00 Pulse 57 L 02/11/24 16:00 Resp 16 02/11/24 16:00 BP 161/74 02/11/24 16:00 Pulse Ox 97 02/11/24 16:00 FiO2 Intake & Output 02/10/24 02/11/24 02/11/24 18:59 06:59 18:59 Intake Total 240 240 Output Total 450 300 Balance 240 -450 -60 Weight 90.5 kg Intake: Oral 240 240 Output: Urine 450 300 Other: Voiding Method Urinal Urinal External Catheter External Catheter # Voids 2 - Exam On examination patient is alert and awake. Speech and language functions are normal. No aphasia or dysarthria. On cranial nerve examination pupils are equal, round and reactive to light, visual dejesus are full with no neglect. Face is symmetric. Tongue protrudes to midline. On muscles on testing there is no pronator drift and the strength is normal in the arms and legs, except bilateral deltoids, which is weak from previous rotator cuff surgeries. Sensory touch is equal with no neglect. No ataxia in the upper limbs. - Labs CBC & Chem 7: 02/12/24 08:50 02/12/24 08:50 Labs: Abnormal Lab Results - Last 24 Hours (Table) 02/10/24 02/10/24 02/11/24 Range/Units 17:52 20:24 08:32 Sodium 121 L 122 L (137-145) mmol/L Chloride 91 L (98-107) mmol/L Creatinine 0.62 L (0.66-1.25) mg/dL Glucose 131 H (74-99) mg/dL Urine Osmolality 283 L (400-1100) mOsm/kg 02/11/24 Range/Units 17:44 Sodium 120 L (137-145) mmol/L Chloride (98-107) mmol/L Creatinine (0.66-1.25) mg/dL Glucose (74-99) mg/dL Urine Osmolality (400-1100) mOsm/kg Assessment and Plan Assessment: This is an 83-year-old gentleman with history of dyspnea since , bypass, a month ago had artificial ureteral sphincter, cancer and received chemotherapy 2 weeks ago on his face present emergency department because of confusion yesterday in which the felt he was confused sleepy yesterday from morning and improved by nighttime. Seems he has been more confused sleepy with leg weakness in last 2 to 3 weeks. Today he feels drastically better. CT of the head is unremarkable for any acute process. The sodium is 126 which he never had this low. Patient has not as been sharp in the last 1 year. Altered mental status seems more metabolic encephalopathy with a sodium of 126. Rule out stroke especially with severe bilateral proximal ICA stenosis as well as diminished enhancement of the left vertebral artery but I doubt stroke--current no focal deficit and is oriented X3 Bilateral proximal ICA stenosis as well as diminished enhancement of the left vertebral artery on CT angiography that reported but could not exlcude thrombus in left vertebral artery History of skin rash and received chemotherapy on left side of the face Urinary incontinence s/p Recent artificial urethral sphincter a month ago Hyponatremia, persisting. History of cardiac bypass Underlying dyspnea at baseline with exertion History of COVID-19 infection about 3 years ago Underlying history of hypercholestremia Plan: Repeat CT head performed 02/09/2024 showed no acute intracranial process. Atrophy with mild chronic appearing periventricular white matter ischemic change. Await MRI of the brain. We will also check MRA of the neck. There is some concern about MRI clearance regarding his CT angiography head and neck is reported as severe bilateral proximal ICA stenosis. Diminished enhancement of the left vertebral artery reference axial image 19 through 27 with distal reconstitution. Could not exclude a thrombus within the left vertebral artery recommend MRI/MRA Vascular surgery team on board for the bilateral ICA stenosis. Discussed with Dr. Granados. They do not believe patient has significant stenosis, but awaiting MRI. 2D echo revealed LVEF 50 to 55%. Abnormal/paradoxical septal motion consistent with postoperative state. No obvious regional wall motion abnormalities. Severe right ventricular dilation. Moderate mitral calcification. Moderate to severe posteriorly directed MR. Mild AAS. Moderate TR. Carotid Doppler revealed 50 to 69% stenosis of bilateral carotid bifurcations. Antegrade flow in both vertebral arteries. TSH 2.44, vitamin B12 321, folate 10.40, ammonia level < 9. We will start B12 1000 mcg orally daily. EEG complete, results pending. Lipid Panel cholesterol 170, LDL 99, HDL 49 and triglycerides 106. Patient on Lipitor 80 mg daily. Patient was given aspirin 325mg once in the ED and was started on aspirin 325 daily by ED physician. Because of evidence of ICA stenosis, we will place on Plavix 75 mg daily as well. Every 4 hours neurochecks Cardiac monitoring PT OT and EDUCATIONAL/DEVELOPMENT ASSISTANT are consulted Nephrology on board for hyponatremia. Currently 122, and then 120. Will defer the rest of the medical management to primary and other specialist For DVT prophylaxis, patient on subcu heparin 5000 units every 12 hour
--- NOTE | 2024-02-12 13:27 | P.PN ---
Subjective patient is seen for follow-up for hyponatremia, hypervolemic. Sodium is improving after discontinuation of IV fluids. Status post IV Lasix yesterday. Serum sodium remains at 121 today. Patient denies any significant complaints. Objective - Vital Signs Vital signs: Vital Signs Temp 98.1 F 02/12/24 08:00 Pulse 58 L 02/12/24 11:28 Resp 16 02/12/24 11:28 BP 160/76 02/12/24 11:28 Pulse Ox 97 02/12/24 11:28 FiO2 Intake & Output 02/11/24 02/12/24 02/12/24 18:59 06:59 18:59 Intake Total 240 358 Output Total 300 500 200 Balance -60 -500 158 Weight 95.7 kg Intake: Oral 240 358 Output: Urine 300 500 200 Other: Voiding Method Urinal Urinal External Catheter External Catheter External Catheter # Voids 2 - Exam Patient is awake, comfortable, no acute distress. Examination of the heart S1 and S2 Examination of the lungs decreased breath sounds at the bases Abdomen is soft nontender Examination of lower extremities shows bilateral legs to be wrapped. 1+ edema noted. AIR CARRIER MAINTENANCE INSPECTOR exam grossly intact Significant skin reaction noted on the left side of the face mostly on the cheek with erythema and crusty lesions. - Labs CBC & Chem 7: 02/12/24 08:50 02/12/24 08:50 Labs: Abnormal Lab Results - Last 24 Hours (Table) 02/11/24 02/12/24 Range/Units 17:44 08:50 Sodium 120 L 121 L (137-145) mmol/L Chloride 88 L (98-107) mmol/L Creatinine 0.61 L (0.66-1.25) mg/dL Glucose 128 H (74-99) mg/dL Assessment and Plan Assessment: 1. Hyponatremia, mildly hypervolemic. sodium improved post discontinuation of IV fluids. Status post IV Lasix 2. Serum sodium remains at 121. Samsca ordered 1 today. 2. Altered mentation likely metabolic encephalopathy versus CVA. 3. Hypothyroidism, TSH 2.4 4. History of skin cancer on the left side of the face with significant skin reaction noted on the cheek Plan: continue off of IV fluids. Samsca 15 mg 1 today. Consider repeating IV Lasix later on today. Maintain fluid restriction Repeat sodium later today.
--- NOTE | 2024-02-12 19:30 | P.PN ---
Subjective Progress Note Date: 02/12/24 83-year-old patient, history of hypertension, hyperlipidemia, hypothyroidism, atrial fibrillation, coronary artery disease, who presented emergency department because of confusion. According to the patient was confused yesterday morning and improved by nighttime. She stated that he was just not himself and was very sleepy. Patient denies any focal weakness, numbness, visual disturbance, speech difficulty. Had mild confusion over the last 2-3 weeks but was mild leg weakness mostly in the morning. No jerking of any extremity, no bowel incontinence no tongue bite. No history of seizures. feels he patient has not been as sharp in the last 1 year. No official diagnosis of dementia. Patient had a recent ureteral artificial sphincter placed about a month ago and then when he followed up recently with his surgeon to activate the urethral sphincter he was notified to hold off since patient has been having recent confusion. Patient has a history of skin cancer and in the last 2 weeks started on chemotherapy over the left face. does not know exactly what kind of skin cancer but for sure it is not melanoma. No history of strokes in the past. --workup completed in the ER: Blood work completed in ED reveals a WBC of 2.5, hemoglobin of 13.7 and platelet count of 176, sodium 126 0.7, BUN/CREATININE 15/0.70 AND BLOOD GLUCOSE OF 97 CT of the head is reported as degenerative changes with no acute hemorrhage. I reviewed the CT and there is no acute or subacute ischemia. There is no bleed. CT angiography is reported as severe bilateral proximal ICA stenosis. Diminished enhancement of the left vertebral artery reference axial image 19 through 27 with distal reconstitution. Could not exclude a thrombus within the left vertebral artery 02/09/2024 Patient is seen and evaluated sitting up in bedside chair; eager to be discharged Vital signs are reviewed and stable with temperature 97.9, pulse 60, respiration 20 and blood pressure 173/88 -Carotid Doppler completed and reveals bilateral carotid artery stenosis of 50 to 69%; vascular surgery on board, given velocities stenosis likely closer to 50%; no intervention recommended at this time 2D echo revealed LVEF 50 to 55%. Abnormal/paradoxical septal motion consistent with postoperative state. No obvious regional wall motion abnormalities. Severe right ventricular dilation. Moderate mitral calcification. Moderate to severe posteriorly directed MR. Mild AAS. Moderate TR. TSH 2.44, vitamin B12 321, folate 10.40, ammonia level < 9. We will start B12 [address] Woods has ordered a routine EEG for his episode of confusion and that would not be done until Saturday. Lipid Panel cholesterol 170, LDL 99, HDL 49 and triglycerides 106. Patient on Lipitor 80 mg daily. Patient was given aspirin 325mg once in the ED and was started on aspirin 325 daily by ED physician. Because of evidence of ICA stenosis, we will place on Plavix 75 mg daily as well. 02/10/24 This is a pleasant 83 years old male who presents with acute stroke related to his left leg weakness and hyponatremia. Patient lying in chair looks comfortable No headache dizziness, he moves both arms and legs symmetrically and freely No chest pain or dyspnea His sodium today was lower 121, nephrology team on the case, placed patient on fluid restriction, blood pressure slightly elevated, we will add norvasc 5 mg from tomorrow given his permissive hypertension related to his acute stroke Also patient has evidence of bilateral carotid artery disease and stenosis 50 to 69%, evaluated by Dr. Granados recommended outpatient follow-up 02/11/24 Patient awake alert, no weakness numbness or other neurological symptom No headache or dizziness or confusion Sodium slightly improving 122 today after 1 dose of IV Lasix yesterday. Con tinue with fluid restriction Also patient on dual antiplatelet therapy with aspirin and Plavix by neurologist given his internal carotid artery disease, today I discussed with the patient and the need to follow-up with Dr. Granados vascular surgery as an outpatient and they are agreeable Also patient with left cheek cancer status post chemotherapy with his head insulation board saw operator Dr. Ruby, patient intends to follow-up with him upon discharge in 2 weeks. Also has a cream to start using it by the end of the week. will bring the cream for his left cheek Blood pressure is better after adding Norvasc 02/12/2024 Patient is evaluated today in follow up. Patient reports no numbness, weakness. He is quite weak. Still pending brain MRI/MRA. Sodium 121. Nephrology added samsca. Blood pressure 148/78. Review of Systems Constitutional: Denied any fatigue denied any fever. Cardio vascular: denied any chest pain, palpitations Gastrointestinal: denied any nausea, vomiting, diarrhea Pulmonary: Denied any shortness of breath cough Neurologic denied any new focal deficits All inpatient medications were reviewed and appropriate changes in these medications as dictated in the interval history and assessment and plan. PHYSICAL EXAMINATION: GENERAL: The patient is alert and oriented x3, not in any acute distress. Well developed, well nourished. HEENT: Pupils are round and equally reacting to light. EOMI. No scleral icterus. No conjunctival pallor. Normocephalic, atraumatic. No pharyngeal erythema. No thyromegaly. CARDIOVASCULAR: S1 and S2 present. No murmurs, rubs, or gallops. PULMONARY: Chest is clear to auscultation, no wheezing or crackles. ABDOMEN: Soft, nontender, nondistended, normoactive bowel sounds. No palpable organomegaly. MUSCULOSKELETAL: No joint swelling or deformity. EXTREMITIES: No cyanosis, clubbing, or pedal edema. NEUROLOGICAL: Gross neurological examination did not reveal any focal deficits. SKIN: No rashes. Scabs on left cheek. Assessment and Plan 1. Hyponatremia -Patient has been placed on IV fluids DC IV fluid, s/p IV Lasix x 1 ; will monitor strict RICARDO's; monitor electrolytes -Given a dose of samsca today; nephrology following -Repeat BMP in the AM. 2. Altered mental status likely metabolic encephalopathy related to hyponatremia/CVA -Patient has been placed on IV fluids and as indicated above -Workup completed in ED reveals a CT of the head which is reported as degenerative changes -Neurology recommending repeat CT head in 48 hours -Patient has been placed on aspirin and Lipitor 80 mg nightly -Consult PT/OT/AUTO PARKER -Continuous cardiac monitoring; permissive hypertension 3. Bilateral proximal ICA stenosis; with diminished enhancement of left vertebral artery on CT angiography; left vertebral artery thrombus cannot be ruled out -Patient has been evaluated by neurology and given carotid stenosis on CTA, recommending MRI as well as MRA of the brain if artificial urethral sphincter is compatible with MRI 4. Hypertension; Resume losartan and continue amlodipine. 5. Hypothyroidism; thyroxine 75 mcg daily 6. Hyperlipidemia; Lipitor 80 mg p.o. nightly 7. Depression; Zoloft 100 mg daily 8. Skin cancer of the left cheek he follow-up with head insulation board saw operator as an outpatient, he had recent chemotherapy and there is some erythema and discoloration of the left cheek which is stable. will bring the cream to use by the end of the week. Patient and state that patient will follow-up in 2 weeks with his head insulation board saw operator upon discharge DVT prophylaxis; heparin per recommendation of neurology CODE STATUS; full code The impression and plan of care has been dictated by Dorene Chung, Nurse Practitioner as directed. Dr. Ruth MD I have performed a history and physical examination and medical decision making of this patient, discussed the same with the dictator, and agree with the dictators assessment and plan as written, documented as a scribe. Based on total visit time, I have performed more than 50% of this visit. Objective - Vital Signs Vital signs: Vital Signs Temp 97.8 F 02/12/24 15:20 Pulse 58 L 02/12/24 15:20 Resp 16 02/12/24 15:20 BP 148/78 02/12/24 15:20 Pulse Ox 98 02/12/24 15:20 FiO2 Intake & Output 02/11/24 02/12/24 02/12/24 18:59 06:59 18:59 Intake Total 240 716 Output Total 300 500 500 Balance -60 -500 216 Weight 95.7 kg Intake: Oral 240 716 Output: Urine 300 500 500 Other: Voiding Method Urinal Urinal External Catheter External Catheter External Catheter # Voids 2 - Labs CBC & Chem 7: 02/12/24 08:50 02/12/24 15:18 Labs: Abnormal Lab Results - Last 24 Hours (Table) 02/11/24 02/12/24 Range/Units 17:44 08:50 Sodium 120 L 121 L (137-145) mmol/L Chloride 88 L (98-107) mmol/L Creatinine 0.61 L (0.66-1.25) mg/dL Glucose 128 H (74-99) mg/dL Assessment and Plan Time with Patient: Less than 30
[2024-02-12] MEDS: MELATONIN 5 MG TABLET PO SCH (20:52)
[2024-02-12] MEDS: FUROSEMIDE 10 MG/ML 4 ML VIAL IV STA (23:21)
[2024-02-13 07:09] LABS: African American GFR (CKD) >90 (>60 ml/min/1.73 sqM); Anion Gap 7 mmol/L; Blood Urea Nitrogen 11 mg/dL (9-20); Calcium 9.3 mg/dL (8.4-10.2); Carbon Dioxide 28 mmol/L (22-30); Chloride 92 mmol/L (98-107); Glucose 98 mg/dL (74-99); Non-African American GFR(CKD) 87 (>60 ml/min/1.73 sqM); Potassium 3.3 mmol/L (3.5-5.1); Sodium 127 mmol/L (137-145)
[2024-02-13] MEDS: LOSARTAN 25 MG TAB PO SCH (08:23)
[2024-02-13] MEDS: POTASSIUM CHLORIDE ER 20 MEQ TAB.ER PO SCH (09:00)
--- NOTE | 2024-02-13 09:22 | P.PN ---
Subjective Progress Note Date: 02/12/24 02/12/2024: Patient was seen for a follow-up. Patient is laying comfortably in the bed. Wants to go home. 02/11/2024: Patient was seen for a follow-up. Patient denies any change in his condition. Denies headache or dizziness. 02/10/2024: Patient was seen for a follow-up. Patient is sitting comfortably on the side of the bed. Offers no new complaints. Denies any headache, no dizziness. No stroke symptoms. 02/09/2024: Patient was seen for a follow-up. Patient is sitting comfortably in the side of the bed. Offers no new complaints. Denies headache. 02/08/2024: Patient was initially seen by Dr. Moreno Woods. Please refer to his note for details. Patient is a 83-year-old male with recent episode of confusion. Patient was found to have bilateral ICA stenosis on the CTA and left vertebral artery was diminished. Vascular surgery has been consulted. Patient at present is laying in the bed. He denies any headache. He denies any strokelike symptoms at this time. He has a rash on the left side of the cheek. Some of the workup during this hospital visit consisted of: Patient on presentation is 149/71 with a heart rate of 56. Temperature is 98.2 F. The rate is 18 and pulse ox is 97 at room air. Sodium is 126. I reviewed his sodium level in the past and it was never as low as this. Calcium is 8.3 Serum glucose 95 BUN/creatinine normal. CK level is 92. Alcohol is less than 10. CT of the head is reported as degenerative changes with no acute hemorrhage. I reviewed the CT and there is no acute or subacute ischemia. There is no bleed. CT angiography is reported as severe bilateral proximal ICA stenosis. Diminished enhancement of the left vertebral artery reference axial image 19 through 27 with distal reconstitution. Could not exclude a thrombus within the left vertebral artery recommend MRI/MRA Objective - Vital Signs Vital signs: Vital Signs Temp 97.8 F 02/12/24 15:20 Pulse 58 L 02/12/24 15:20 Resp 16 02/12/24 15:20 BP 148/78 02/12/24 15:20 Pulse Ox 98 02/12/24 15:20 FiO2 Intake & Output 02/11/24 02/12/2424 18:59 06:59 18:59 Intake Total 240 716 Output Total 300 500 500 Balance -60 -500 216 Weight 95.7 kg Intake: Oral 240 716 Output: Urine 300 500 500 Other: Voiding Method Urinal Urinal External Catheter External Catheter External Catheter # Voids 2 - Exam On examination patient is alert and awake. Speech and language functions are normal. No aphasia or dysarthria. On cranial nerve examination pupils are equal, round and reactive to light, visual dejesus are full with no neglect. Face is symmetric. Tongue protrudes to midline. On muscles on testing there is no pronator drift and the strength is normal in the arms and legs, except bilateral deltoids, which is weak from previous rotator cuff surgeries. Sensory touch is equal with no neglect. No ataxia in the upper limbs. - Labs CBC & Chem 7: 02/12/24 08:50 02/13/24 06:19 Labs: Abnormal Lab Results - Last 24 Hours (Table) 02/11/24 02/12/24 02/12/24 Range/Units 17:44 08:50 15:18 Sodium 120 L 121 L 121 L (137-145) mmol/L Chloride 88 L (98-107) mmol/L Creatinine 0.61 L (0.66-1.25) mg/dL Glucose 128 H (74-99) mg/dL Assessment and Plan Assessment: This is an 83-year-old gentleman with history of dyspnea since , bypass, a month ago had artificial ureteral sphincter, cancer and received chemotherapy 2 weeks ago on his face present emergency department because of confusion yesterday in which the felt he was confused sleepy yesterday from morning and improved by nighttime. Seems he has been more confused sleepy with leg weakness in last 2 to 3 weeks. Today he feels drastically better. CT of the head is unremarkable for any acute process. The sodium is 126 which he never had this low. Patient has not as been sharp in the last 1 year. Altered mental status seems more metabolic encephalopathy with a sodium of 126. Rule out stroke especially with severe bilateral proximal ICA stenosis as well a s diminished enhancement of the left vertebral artery but I doubt stroke--current no focal deficit and is oriented X3 Bilateral proximal ICA stenosis as well as diminished enhancement of the left vertebral artery on CT angiography that reported but could not exlcude thrombus in left vertebral artery History of skin rash and received chemotherapy on left side of the face Urinary incontinence s/p Recent artificial urethral sphincter a month ago Hyponatremia, persisting. History of cardiac bypass Underlying dyspnea at baseline with exertion History of COVID-19 infection about 3 years ago Underlying history of hypercholestremia Plan: Repeat CT head performed 02/09/2024 showed no acute intracranial process. Atrophy with mild chronic appearing periventricular white matter ischemic change. Await MRI of the brain. We will also check MRA of the neck. There is some concern about MRI clearance regarding his sphincter. CT angiography head and neck is reported as severe bilateral proximal ICA stenosis. Diminished enhancement of the left vertebral artery reference axial image 19 through 27 with distal reconstitution. Could not exclude a thrombus within the left vertebral artery recommend MRI/MRA Vascular surgery team on board for the bilateral ICA stenosis. Discussed with Dr. Granados. They do not believe patient has significant stenosis, but awaiting MRI. 2D echo revealed LVEF 50 to 55%. Abnormal/paradoxical septal motion consistent with postoperative state. No obvious regional wall motion abnormalities. Severe right ventricular dilation. Moderate mitral calcification. Moderate to severe posteriorly directed MR. Mild AAS. Moderate TR. Carotid Doppler revealed 50 to 69% stenosis of bilateral carotid bifurcations. Antegrade flow in both vertebral arteries. TSH 2.44, vitamin B12 321, folate 10.40, ammonia level < 9. We will start B12 1000 mcg orally daily. EEG complete, results pending. Lipid Panel cholesterol 170, LDL 99, HDL 49 and triglycerides 106. Patient on Lipitor 80 mg daily. Patient was given aspirin 325mg once in the ED and was started on aspirin 325 daily by ED physician. Patient used to take aspirin 81 mg daily at home, prior to arrival. Because of evidence of ICA stenosis, we will place on Plavix 75 mg daily as well. Every 4 hours neurochecks Cardiac monitoring PT OT and SLOT SERVICE SPECIALIST are consulted Nephrology on board for hyponatremia. Currently 121. Will defer the rest of the medical management to primary and other specialist For DVT prophylaxis, patient on subcu heparin 5000 units every 12 hour
--- NOTE | 2024-02-13 12:31 | P.PN ---
Subjective patient is seen for follow-up for hyponatremia, hypervolemic. Sodium is improving with diuresis and patient received 1 dose of Samsca. Serum sodium at 127 today. Patient denies any significant complaints. Objective - Vital Signs Vital signs: Vital Signs Temp 97.8 F 02/13/24 11:31 Pulse 59 L 02/13/24 11:31 Resp 20 02/13/24 11:31 BP 134/61 02/13/24 11:31 Pulse Ox 97 02/13/24 11:31 FiO2 Intake & Output 02/12/24 02/13/24 02/13/24 18:59 06:59 18:59 Intake Total 834 Output Total 1200 650 Balance -366 -650 Weight 94.2 kg Intake: Oral 834 Output: Urine 1200 650 Other: Voiding Method External Catheter External Catheter External Catheter # Voids 2 - Exam Patient is awake, comfortable, no acute distress. Examination of the heart S1 and S2 Examination of the lungs decreased breath sounds at the bases Abdomen is soft nontender Examination of lower extremities shows bilateral legs to be wrapped. 1+ edema noted. BUSINESS SUPPORT ADMINISTRATOR exam grossly intact Significant skin reaction noted on the left side of the face mostly on the cheek with erythema and crusty lesions. - Labs CBC & Chem 7: 02/12/24 08:50 02/13/24 06:19 Labs: Abnormal Lab Results - Last 24 Hours (Table) 02/12/24 02/12/24 02/13/24 Range/Units 15:18 20:24 06:19 Sodium 121 L 123 L 127 L (137-145) mmol/L Potassium 3.3 L (3.5-5.1) mmol/L Chloride 92 L (98-107) mmol/L 02/13/24 Range/Units 06:19 Sodium 127 L (137-145) mmol/L Potassium (3.5-5.1) mmol/L Chloride (98-107) mmol/L Assessment and Plan Assessment: 1. Hyponatremia, mildly hypervolemic. Serum sodium improved to 127 with diuresis and patient received 1 dose of Samsca. 2. Altered mentation likely metabolic encephalopathy versus CVA. 3. Hypothyroidism, TSH 2.4 4. History of skin cancer on the left side of the face with significant skin reaction noted on the cheek. 5. Hypokalemia secondary to diuretics Plan: repeat sodium later on today and add oral diuretics to start from tomorrow.
--- NOTE | 2024-02-13 12:41 | P.PN ---
Subjective Progress Note Date: 02/13/24 83-year-old patient, history of hypertension, hyperlipidemia, hypothyroidism, atrial fibrillation, coronary artery disease, who presented emergency department because of confusion. According to the patient was confused yesterday morning and improved by nighttime. She stated that he was just not himself and was very sleepy. Patient denies any focal weakness, numbness, visual disturbance, speech difficulty. Had mild confusion over the last 2-3 weeks but was mild leg weakness mostly in the morning. No jerking of any extremity, no bowel incontinence no tongue bite. No history of seizures. feels he patient has not been as sharp in the last 1 year. No official diagnosis of dementia. Patient had a recent ureteral artificial sphincter placed about a month ago and then when he followed up recently with his surgeon to activate the urethral sphincter he was notified to hold off since patient has been having recent confusion. Patient has a history of skin cancer and in the last 2 weeks started on chemotherapy over the left face. does not know exactly what kind of skin cancer but for sure it is not melanoma. No history of strokes in the past. --workup completed in the ER: Blood work completed in ED reveals a WBC of 2.5, hemoglobin of 13.7 and platelet count of 176, sodium 126 0.7, BUN/CREATININE 15/0.70 AND BLOOD GLUCOSE OF 97 CT of the head is reported as degenerative changes with no acute hemorrhage. I reviewed the CT and there is no acute or subacute ischemia. There is no bleed. CT angiography is reported as severe bilateral proximal ICA stenosis. Diminished enhancement of the left vertebral artery reference axial image 19 through 27 with distal reconstitution. Could not exclude a thrombus within the left vertebral artery 02/09/2024 Patient is seen and evaluated sitting up in bedside chair; eager to be discharged Vital signs are reviewed and stable with temperature 97.9, pulse 60, respiration 20 and blood pressure 173/88 -Carotid Doppler completed and reveals bilateral carotid artery stenosis of 50 to 69%; vascular surgery on board, given velocities stenosis likely closer to 50%; no intervention recommended at this time 2D echo revealed LVEF 50 to 55%. Abnormal/paradoxical septal motion consistent with postoperative state. No obvious regional wall motion abnormalities. Severe right ventricular dilation. Moderate mitral calcification. Moderate to severe posteriorly directed MR. Mild AAS. Moderate TR. TSH 2.44, vitamin B12 321, folate 10.40, ammonia level < 9. We will start B12 [address] Woods has ordered a routine EEG for his episode of confusion and that would not be done until Saturday. Lipid Panel cholesterol 170, LDL 99, HDL 49 and triglycerides 106. Patient on Lipitor 80 mg daily. Patient was given aspirin 325mg once in the ED and was started on aspirin 325 daily by ED physician. Because of evidence of ICA stenosis, we will place on Plavix 75 mg daily as well. 02/10/24 This is a pleasant 83 years old male who presents with acute stroke related to his left leg weakness and hyponatremia. Patient lying in chair looks comfortable No headache dizziness, he moves both arms and legs symmetrically and freely No chest pain or dyspnea His sodium today was lower 121, nephrology team on the case, placed patient on fluid restriction, blood pressure slightly elevated, we will add norvasc 5 mg from tomorrow given his permissive hypertension related to his acute stroke Also patient has evidence of bilateral carotid artery disease and stenosis 50 to 69%, evaluated by Dr. Granados recommended outpatient follow-up 02/11/24 Patient awake alert, no weakness numbness or other neurological symptom No headache or dizziness or confusion Sodium slightly improving 122 today after 1 dose of IV Lasix yesterday. Con tinue with fluid restriction Also patient on dual antiplatelet therapy with aspirin and Plavix by neurologist given his internal carotid artery disease, today I discussed with the patient and the need to follow-up with Dr. Granados vascular surgery as an outpatient and they are agreeable Also patient with left cheek cancer status post chemotherapy with his motor patrol operator Dr. Ruby, patient intends to follow-up with him upon discharge in 2 weeks. Also has a cream to start using it by the end of the week. will bring the cream for his left cheek Blood pressure is better after adding Norvasc 02/12/2024 Patient is evaluated today in follow up. Patient reports no numbness, weakness. He is quite weak. Still pending brain MRI/MRA. Sodium 121. Nephrology added samsca. Blood pressure 148/78. 02/13/2024 Patient is evaluated in follow-up he is resting comfortably in the chair having no acute complaints. His sodium level is 127 after he was diuresed as well as a dose of Samsca and nephrology is planning on adding oral diuretics from tomorrow. We will continue to closely monitor his sodium. Reports received from [place] regarding the urinary sphincter implant and pending follow-up with MRI if patient is able to undergo the brain MRI/MRA. Review of Systems Constitutional: Denied any fatigue denied any fever. Cardio vascular: denied any chest pain, palpitations Gastrointestinal: denied any nausea, vomiting, diarrhea Pulmonary: Denied any shortness of breath cough Neurologic denied any new focal deficits All inpatient medications were reviewed and appropriate changes in these medications as dictated in the interval history and assessment and plan. PHYSICAL EXAMINATION: GENERAL: The patient is alert and oriented x3, not in any acute distress. Well developed, well nourished. HEENT: Pupils are round and equally reacting to light. EOMI. No scleral icterus. No conjunctival pallor. Normocephalic, atraumatic. No pharyngeal erythema. No thyromegaly. CARDIOVASCULAR: S1 and S2 present. No murmurs, rubs, or gallops. PULMONARY: Chest is clear to auscultation, no wheezing or crackles. ABDOMEN: Soft, nontender, nondistended, normoactive bowel sounds. No palpable or ganomegaly. MUSCULOSKELETAL: No joint swelling or deformity. EXTREMITIES: No cyanosis, clubbing, or pedal edema. NEUROLOGICAL: Gross neurological examination did not reveal any focal deficits. SKIN: No rashes. Scabs on left cheek. Assessment and Plan 1. Hyponatremia -Patient has been placed on IV fluids DC IV fluid, s/p IV Lasix x 1 ; will monitor strict RICARDO's; monitor electrolytes -Given a dose of samsca today; nephrology following -Be started on oral diuretics from tomorrow. -Repeat BMP in the AM. 2. Altered mental status likely metabolic encephalopathy related to hyponatremia/CVA -Patient has been placed on IV fluids and as indicated above -Workup completed in ED reveals a CT of the head which is reported as degenerative changes -Neurology recommending repeat CT head in 48 hours -Patient has been placed on aspirin and Lipitor 80 mg nightly -Consult PT/OT/SAFETY ENGINEER PRESSURE VESSELS -Continuous cardiac monitoring; permissive hypertension 3. Bilateral proximal ICA stenosis; with diminished enhancement of left vertebral artery on CT angiography; left vertebral artery thrombus cannot be ruled out -Patient has been evaluated by neurology and given carotid stenosis on CTA, recommending MRI as well as MRA of the brain if artificial urethral sphincter is compatible with MRI 4. Hypertension; Resume losartan and continue amlodipine. 5. Hypothyroidism; thyroxine 75 mcg daily 6. Hyperlipidemia; Lipitor 80 mg p.o. nightly 7. Depression; Zoloft 100 mg daily 8. Skin cancer of the left cheek he follow-up with motor patrol operator as an outpatient, he had recent chemotherapy and there is some erythema and discoloration of the left cheek which is stable. will bring the cream to use by the end of the week. Patient and state that patient will follow-up in 2 weeks with his motor patrol operator upon discharge DVT prophylaxis; heparin per recommendation of neurology CODE STATUS; full code The impression and plan of care has been dictated by Dorene Chung Nurse Practitioner as directed. Dr. Ruth MD I have performed a history and physical examination and medical decision making of this patient, discussed the same with the dictator, and agree with the dictators assessment and plan as written, documented as a scribe. Based on total visit time, I have performed more than 50% of this visit. Objective - Vital Signs Vital signs: Vital Signs Temp 97.8 F 02/13/24 11:31 Pulse 59 L 02/13/24 11:31 Resp 20 02/13/24 11:31 BP 134/61 02/13/24 11:31 Pulse Ox 97 02/13/24 11:31 FiO2 Intake & Output 02/12/24 02/13/24 02/13/24 18:59 06:59 18:59 Intake Total 834 Output Total 1200 650 Balance -366 -650 Weight 94.2 kg Intake: Oral 834 Output: Urine 1200 650 Other: Voiding Method External Catheter External Catheter External Catheter # Voids 2 - Labs CBC & Chem 7: 02/12/24 08:50 02/13/24 06:19 Labs: Abnormal Lab Results - Last 24 Hours (Table) 02/12/24 02/12/24 02/13/24 Range/Units 15:18 20:24 06:19 Sodium 121 L 123 L 127 L (137-145) mmol/L Potassium 3.3 L (3.5-5.1) mmol/L Chloride 92 L (98-107) mmol/L 02/13/24 Range/Units 06:19 Sodium 127 L (137-145) mmol/L Potassium (3.5-5.1) mmol/L Chloride (98-107) mmol/L Assessment and Plan Time with Patient: Less than 30
--- NOTE | 2024-02-13 16:01 | MR ---
EXAMINATION TYPE: MR brain wo con DATE OF EXAM: 02/13/2024 3:46 PM CLINICAL INDICATION: Male, 83 years old with history of stroke; PHH, Stroke COMPARISON: 11/18/2021, 02/10/2024.. TECHNIQUE: Multi planar, multi sequence imaging was performed through the brain including: T1, T2, In version recovery, Diffusion weighted imaging, and gradient echo imaging. No gadolinium was given. FINDINGS: Mild cerebral atrophy with proportional dilation of ventricular system. Scattered foci of high T2 s ignal intensity are seen within the periventricular white matter. Midline structures show no abnormal ity. Diffusion-weighted imaging shows no evidence of restricted diffusion. The susceptibility weighte d images do not reveal any evidence for micro-hemorrhage. The bone marrow signal is within normal limits. Paranasal sinuses and mastoid air cells: No significant paranasal sinus disease. Visualized orbits: Orbital contents are intact. IMPRESSION: 1. No evidence of intracranial mass or acute/subacute infarct. 2. Nonspecific white matter changes, likely secondary to small vessel ischemic disease.
--- NOTE | 2024-02-13 16:25 | P.PN ---
Subjective Progress Note Date: 02/13/24 02/13/2024: Patient was seen for a follow-up. Patient wants to go home. He is doing better. Patient continues to have low sodium. Most recent is 127. We are still awaiting clearance for MRI. 02/12/2024: Patient was seen for a follow-up. Patient is laying comfortably in the bed. Wants to go home. 02/11/2024: Patient was seen for a follow-up. Patient denies any change in his condition. Denies headache or dizziness. 02/10/2024: Patient was seen for a follow-up. Patient is sitting comfortably on the side of the bed. Offers no new complaints. Denies any headache, no dizziness. No stroke symptoms. 02/09/2024: Patient was seen for a follow-up. Patient is sitting comfortably in the side of the bed. Offers no new complaints. Denies headache. 02/08/2024: Patient was initially seen by Dr. Moreno Woods. Please refer to his note for details. Patient is a 83-year-old male with recent episode of confusion. Patient was found to have bilateral ICA stenosis on the CTA and left vertebral artery was diminished. Vascular surgery has been consulted. Patient at present is laying in the bed. He denies any headache. He denies any strokelike symptoms at this time. He has a rash on the left side of the cheek. Some of the workup during this hospital visit consisted of: Patient on presentation is 149/71 with a heart rate of 56. Temperature is 98.2 F. The rate is 18 and pulse ox is 97 at room air. Sodium is 126. I reviewed his sodium level in the past and it was never as low as this. Calcium is 8.3 Serum glucose 95 BUN/creatinine normal. CK level is 92. Alcohol is less than 10. CT of the head is reported as degenerative changes with no acute hemorrhage. I reviewed the CT and there is no acute or subacute ischemia. There is no bleed. CT angiography is reported as severe bilateral proximal ICA stenosis. Diminished enhancement of the left vertebral artery reference axial image 19 through 27 with distal reconstitution. Could not exclude a thrombus within the left vertebral artery recommend MRI/MRA Objective - Vital Signs Vital signs: Vital Signs Temp 97.8 F 02/13/24 11:31 Pulse 59 L 02/13/24 11:31 Resp 20 02/13/24 11:31 BP 134/61 02/13/24 11:31 Pulse Ox 97 02/13/24 11:31 FiO2 Intake & Output 02/12/24 02/13/24 02/13/24 18:59 06:59 18:59 Intake Total 834 Output Total 1200 650 Balance -366 -650 Weight 94.2 kg Intake: Oral 834 Output: Urine 1200 650 Other: Voiding Method External Catheter External Catheter External Catheter # Voids 2 - Exam On examination patient is alert and awake. Speech and language functions are normal. No aphasia or dysarthria. On cranial nerve examination pupils are equal, round and reactive to light, visual dejesus are full with no neglect. Face is symmetric. Tongue protrudes to midline. On muscles on testing there is no pronator drift and the strength is normal in the arms and legs, except bilateral deltoids, which is weak from previous rotator cuff surgeries. Sensory touch is equal with no neglect. No ataxia in the upper limbs. - Labs CBC & Chem 7: 02/12/24 08:50 02/13/24 06:19 Labs: Abnormal Lab Results - Last 24 Hours (Table) 02/12/24 02/12/24 02/13/24 Range/Units 15:18 20:24 06:19 Sodium 121 L 123 L 127 L (137-145) mmol/L Potassium 3.3 L (3.5-5.1) mmol/L Chloride 92 L (98-107) mmol/L 02/13/24 Range/Units 06:19 Sodium 127 L (137-145) mmol/L Potassium (3.5-5.1) mmol/L Chloride (98-107) mmol/L Assessment and Plan Assessment: This is an 83-year-old gentleman with history of dyspnea since , bypass, a month ago had artificial ureteral sphincter, cancer and received chemotherapy 2 weeks ago on his face present emergency department because of confusion yesterday in which the felt he was confused sleepy yesterday from morning and improved by nighttime. Seems he has been more confused sleepy with leg weakness in last 2 to 3 weeks. Today he feels drastically better. CT of the head is unremarkable for any acute process. The sodium is 126 which he never had this low. Patient has not as been sharp in the last 1 year. Altered mental status seems more metabolic encephalopathy with a sodium of 126. Rule out stroke especially with severe bilateral proximal ICA stenosis as well as diminished enhancement of the left vertebral artery but I doubt stroke--current no focal deficit and is oriented X3 Bilateral proximal ICA stenosis as well as diminished enhancement of the left vertebral artery on CT angiography that reported but could not exlcude thrombus in left vertebral artery History of skin rash and received chemotherapy on left side of the face Urinary incontinence s/p Recent artificial urethral sphincter a month ago Hyponatremia, persisting. History of cardiac bypass Underlying dyspnea at baseline with exertion History of COVID-19 infection about 3 years ago Underlying history of hypercholestremia Plan: MRI of the brain without contrast revealed no evidence of intracranial mass, acute/subacute infarct. Nonspecific white matter changes, likely secondary to small vessel ischemic disease. I personally reviewed MRI, agree with the findings. CT angiography head and neck is reported as severe bilateral proximal ICA stenosis. Diminished enhancement of the left vertebral artery reference axial i mage 19 through 27 with distal reconstitution. Could not exclude a thrombus within the left vertebral artery recommend MRI/MRA Vascular surgery team on board for the bilateral ICA stenosis. Discussed with Dr. Granados. They do not believe patient has significant stenosis, but awaiting MRI. 2D echo revealed LVEF 50 to 55%. Abnormal/paradoxical septal motion consistent with postoperative state. No obvious regional wall motion abnormalities. Severe right ventricular dilation. Moderate mitral calcification. Moderate to severe posteriorly directed MR. Mild AAS. Moderate TR. Carotid Doppler revealed 50 to 69% stenosis of bilateral carotid bifurcations. Antegrade flow in both vertebral arteries. TSH 2.44, vitamin B12 321, folate 10.40, ammonia level < 9. We will start B12 1000 mcg orally daily. EEG was abnormal due to background slowing, suggestive of mild encephalopathy. No focal, lateralized or epileptiform activity was seen. Lipid Panel cholesterol 170, LDL 99, HDL 49 and triglycerides 106. Patient on Lipitor 80 mg daily. Patient was given aspirin 325mg once in the ED and was started on aspirin 325 daily by ED physician. Patient used to take aspirin 81 mg daily at home, prior to arrival. Because of evidence of ICA stenosis, we will place on Plavix 75 mg daily as well. We will stop aspirin and continue Plavix. Every 4 hours neurochecks Cardiac monitoring PT OT and MEDICAID BILLING CLERK are consulted Nephrology on board for hyponatremia. Currently 127. Will defer the rest of the medical management to primary and other specialist For DVT prophylaxis, patient on subcu heparin 5000 units every 12 hour. Neurologically clear for discharge,
[2024-02-13] MEDS: CYANOCOBALAMIN 500 MCG TAB PO SCH (16:49)
[2024-02-13] MEDS: TOLVAPTAN 15 MG TABLET PO ONE (23:27)
[2024-02-14 07:36] LABS: African American GFR (CKD) >90 (>60 ml/min/1.73 sqM); Anion Gap 8 mmol/L; Blood Urea Nitrogen 17 mg/dL (9-20); Calcium 9.1 mg/dL (8.4-10.2); Carbon Dioxide 25 mmol/L (22-30); Chloride 94 mmol/L (98-107); Glucose 95 mg/dL (74-99); Magnesium 1.9 mg/dL (1.6-2.3); Non-African American GFR(CKD) 80 (>60 ml/min/1.73 sqM); Potassium 3.8 mmol/L (3.5-5.1); Sodium 127 mmol/L (137-145)
[2024-02-14] MEDS: FUROSEMIDE 40 MG TAB PO SCH (11:50)
--- NOTE | 2024-02-14 13:50 | MR ---
EXAMINATION TYPE: MR angio neck wo/w con DATE OF EXAM: 02/14/2024 1:22 PM CLINICAL INDICATION: Male, 83 years old with history of Stenosis, r/o thrombus in vertebral artery; A ltered mental status, stroke. COMPARISON: 02/09/2024 01/11/2024 TECHNIQUE: Multiplanar, multi-sequence imaging as well as [id number] and phase contrast imaging w as performed extracranial vasculature of the neck. 2-D and 3-D [id number] imaging. 3-D reformatte d images and maximum intensity projection reformatted images were submitted for evaluation. IV Contrast: 9 cc Gadavist FINDINGS: RIGHT CAROTID SYSTEM: High-grade stenosis seen on the right is poorly visualized possibly due to slic e selection. Right past the bifurcation there is an area of stenosis series 501 image 64. The common carotid artery is patent. LEFT CAROTID SYSTEM: The common carotid artery is patent. Atherosclerotic plaque with 50% stenosis i s identified. The origins of the great vessels and vertebral arteries appear unremarkable. The right vertebral art gray is dominant. IMPRESSIONS: 1. Similar high-grade stenosis of the bilateral proximal internal carotid arteries. Opinion the righ t is poorly visualized due to slice selection. On the left there is up to 57% stenosis at the carotid bifurcation. 2. The left vertebral artery is poorly evaluated in the intracranial portion possibly due to motion. There appears to be thrombus within the intracranial portion on prior CT and prior MRI. 3. No evidence aneurysm.
--- NOTE | 2024-02-14 13:55 | P.PN ---
Subjective patient is seen for follow-up for hyponatremia, hypervolemic. Sodium is improving with diuresis and patient received 2 doses of Samsca. Serum sodium remains at 127 Patient denies any significant complaints. Objective - Vital Signs Vital signs: Vital Signs Temp 97.7 F 02/14/24 08:45 Pulse 55 L 02/14/24 11:45 Resp 16 02/14/24 11:45 BP 131/71 02/14/24 11:45 Pulse Ox 98 02/14/24 11:45 FiO2 Intake & Output 02/13/24 02/14/24 02/14/24 18:59 06:59 18:59 Intake Total 480 200 Output Total 400 250 Balance 80 -250 200 Weight 94.7 kg Intake: Oral 480 200 Output: Urine 400 250 Other: Voiding Method External Catheter External Catheter External Catheter - Exam Patient is awake, comfortable, no acute distress. Examination of the heart S1 and S2 Examination of the lungs decreased breath sounds at the bases Abdomen is soft nontender Examination of lower extremities shows bilateral legs to be wrapped. 1+ edema noted. SUPERCALENDER OPERATOR HELPER exam grossly intact Significant skin reaction noted on the left side of the face mostly on the cheek with erythema and crusty lesions. - Labs CBC & Chem 7: 02/12/24 08:50 02/14/24 06:10 Labs: Abnormal Lab Results - Last 24 Hours (Table) 02/13/24 02/14/24 Range/Units 17:53 06:10 Sodium 127 L 127 L (137-145) mmol/L Chloride 94 L (98-107) mmol/L Assessment and Plan Assessment: 1. Hyponatremia, mildly hypervolemic. Serum sodium improved and staying at127 with diuresis and patient received 2 doses of Samsca. 2. Altered mentation likely metabolic encephalopathy versus CVA. 3. Hypothyroidism, TSH 2.4 4. History of skin cancer on the left side of the face with significant skin reaction noted on the cheek. 5. Hypokalemia secondary to diuretics Plan: start oral Lasix. Repeat labs in a.m.
[2024-02-14 16:27] VITALS: BMI 32.7
--- NOTE | 2024-02-14 20:35 | P.PN ---
Subjective Progress Note Date: 02/14/24 02/14/2024: Patient was seen for a follow-up. Patient is sitting comfortably in the recliner. Offers no new complaints. 02/13/2024: Patient was seen for a follow-up. Patient wants to go home. He is doing better. Patient continues to have low sodium. Most recent is 127. We are still awaiting clearance for MRI. 02/12/2024: Patient was seen for a follow-up. Patient is laying comfortably in the bed. Wants to go home. 02/11/2024: Patient was seen for a follow-up. Patient denies any change in his condition. Denies headache or dizziness. 02/10/2024: Patient was seen for a follow-up. Patient is sitting comfortably on the side of the bed. Offers no new complaints. Denies any headache, no dizziness. No stroke symptoms. 02/09/2024: Patient was seen for a follow-up. Patient is sitting comfortably in the side of the bed. Offers no new complaints. Denies headache. 02/08/2024: Patient was initially seen by Dr. Moreno Woods. Please refer to his no te for details. Patient is a 83-year-old male with recent episode of confusion. Patient was found to have bilateral ICA stenosis on the CTA and left vertebral artery was diminished. Vascular surgery has been consulted. Patient at present is laying in the bed. He denies any headache. He denies any strokelike symptoms at this time. He has a rash on the left side of the cheek. Some of the workup during this hospital visit consisted of: Patient on presentation is 149/71 with a heart rate of 56. Temperature is 98.2 F. The rate is 18 and pulse ox is 97 at room air. Sodium is 126. I reviewed his sodium level in the past and it was never as low as this. Calcium is 8.3 Serum glucose 95 BUN/creatinine normal. CK level is 92. Alcohol is less than 10. CT of the head is reported as degenerative changes with no acute hemorrhage. I reviewed the CT and there is no acute or subacute ischemia. There is no bleed. CT angiography is reported as severe bilateral proximal ICA stenosis. Diminished enhancement of the left vertebral artery reference axial image 19 th rough 27 with distal reconstitution. Could not exclude a thrombus within the left vertebral artery recommend MRI/MRA Objective - Vital Signs Vital signs: Vital Signs Temp 97.7 F 02/14/24 08:45 Pulse 55 L 02/14/24 11:45 Resp 16 02/14/24 11:45 BP 131/71 02/14/24 11:45 Pulse Ox 98 02/14/24 11:45 FiO2 Intake & Output 02/13/24 02/14/24 02/14/24 18:59 06:59 18:59 Intake Total 480 200 Output Total 400 250 Balance 80 -250 200 Weight 94.7 kg Intake: Oral 480 200 Output: Urine 400 250 Other: Voiding Method External Catheter External Catheter External Catheter - Exam On examination patient is alert and awake. Speech and language functions are normal. No aphasia or dysarthria. On cranial nerve examination pupils are equal, round and reactive to light, visual dejesus are full with no neglect. Face is symmetric. Tongue protrudes to midline. On muscles on testing there is no pronator drift and the strength is normal in the arms and legs, except bilateral deltoids, which is weak from previous rotator cuff surgeries. Sensory touch is equal with no neglect. No ataxia in the upper limbs. - Labs CBC & Chem 7: 02/12/24 08:50 02/14/24 06:10 Labs: Abnormal Lab Results - Last 24 Hours (Table) 02/13/24 02/14/24 Range/Units 17:53 06:10 Sodium 127 L 127 L (137-145) mmol/L Chloride 94 L (98-107) mmol/L Assessment and Plan Assessment: This is an 83-year-old gentleman with history of dyspnea since , bypass, a month ago had artificial ureteral sphincter, cancer and received chemotherapy 2 weeks ago on his face present emergency department because of confusion yesterday in which the felt he was confused sleepy yesterday from morning and improved by nighttime. Seems he has been more confused sleepy with leg weakness in last 2 to 3 weeks. Today he feels drastically better. CT of the head is unremarkable for any acute process. The sodium is 126 which he never ace d this low. Patient has not as been sharp in the last 1 year. Altered mental status seems more metabolic encephalopathy with a sodium of 126. Rule out stroke especially with severe bilateral proximal ICA stenosis as well as diminished enhancement of the left vertebral artery but I doubt stroke--c urrent no focal deficit and is oriented X3 Bilateral proximal ICA stenosis as well as diminished enhancement of the left vertebral artery on CT angiography that reported but could not exlcude thrombus in left vertebral artery History of skin rash and received chemotherapy on left side of the face Urinary incontinence s/p Recent artificial urethral sphincter a month ago Hyponatremia, persisting. History of cardiac bypass Underlying dyspnea at baseline with exertion History of COVID-19 infection about 3 years ago Underlying history of hypercholestremia Plan: MRI of the brain without contrast revealed no evidence of intracranial mass, acute/subacute infarct. Nonspecific white matter changes, likely secondary to small vessel ischemic disease. I personally reviewed MRI, agree with the findings. MRA of the neck: Similar high-grade stenosis of the bilateral proximal internal carotid arteries. Right is poorly visualized due to slice selection. On the left, there is up to 57% stenosis at the carotid bifurcation. The left vertebral artery is poorly evaluated in the intracranial portion possibly due to motion. There appears to be thrombus within the intracranial portion on the prior CT and prior MRI. No evidence of aneurysm. CT angiography head and neck is reported as severe bilateral proximal ICA stenosis. Diminished enhancement of the left vertebral artery reference axial image 19 through 27 with distal reconstitution. Could not exclude a thrombus within the left vertebral artery recommend MRI/MRA Vascular surgery team on board for the bilateral ICA stenosis. Discussed with Dr. Granados. They do not believe patient has significant stenosis, but awaiting MRI/MRA Await final recommendation from vascular surgery.. 2D echo revealed LVEF 50 to 55%. Abnormal/paradoxical septal motion consistent with postoperative state. No obvious regional wall motion abnormalities. Severe right ventricular dilation. Moderate mitral calcification. Moderate to severe posteriorly directed MR. Mild AAS. Moderate TR. Carotid Doppler revealed 50 to 69% stenosis of bilateral carotid bifurcations. Antegrade flow in both vertebral arteries. TSH 2.44, vitamin B12 321, folate 10.40, ammonia level < 9. We will start B12 1000 mcg orally daily. EEG was abnormal due to background slowing, suggestive of mild encephalopathy. No focal, lateralized or epileptiform activity was seen. Lipid Panel cholesterol 170, LDL 99, HDL 49 and triglycerides 106. Patient on Lipitor 80 mg daily. Patient was given aspirin 325mg once in the ED and was started on aspirin 325 daily by ED physician. Patient used to take aspirin 81 mg daily at home, prior to arrival. Because of evidence of ICA stenosis, we will place on Plavix 75 mg daily as well. Based upon the amount of stenosis, recommend continuing aspirin 81 mg and Plavix 75 mg. Every 4 hours neurochecks Cardiac monitoring PT OT and KEYLINER are consulted Nephrology on board for hyponatremia. Currently 127. Will defer the rest of the medical management to primary and other specialist For DVT prophylaxis, patient on subcu heparin 5000 units every 12 hour. Neurologically clear for discharge, if cleared by vascular surgery. Dr. Moreno Woods available for any neurological concerns over the weekend.
[2024-02-15 07:59] LABS: Basophils % (A) 0 %; Eosinophils # (A) 0.1 k/uL (0-0.7); Eosinophils % (A) 2 %; HCT 46.3 % (39.0-53.0); HGB 15.1 gm/dL (13.0-17.5); Lymphocytes # (A) 1.1 k/uL (1.0-4.8); Lymphocytes % (A) 17 %; MCH 30.1 pg (25.0-35.0); MCHC 32.7 g/dL (31.0-37.0); MCV 91.9 fL (80.0-100.0); Mean Platelet Volume 7.7; Monocytes # (A) 0.8 k/uL (0-1.0); Monocytes % (A) 13 %; Neutrophils # (A) 4.4 k/uL (1.3-7.7); Neutrophils % (A) 67 %; Platelet Count 253 k/uL (150-450); RBC 5.04 m/uL (4.30-5.90); RDW 13.7 % (11.5-15.5); WBC 6.5 k/uL (3.8-10.6)
[2024-02-15 08:53] LABS: African American GFR (CKD) >90 (>60 ml/min/1.73 sqM); Anion Gap 9 mmol/L; Blood Urea Nitrogen 21 mg/dL (9-20); Calcium 9.4 mg/dL (8.4-10.2); Carbon Dioxide 23 mmol/L (22-30); Chloride 95 mmol/L (98-107); Glucose 97 mg/dL (74-99); Magnesium 1.9 mg/dL (1.6-2.3); Non-African American GFR(CKD) 84 (>60 ml/min/1.73 sqM); Potassium 3.9 mmol/L (3.5-5.1); Sodium 127 mmol/L (137-145)
--- NOTE | 2024-02-15 09:14 | P.PN ---
Subjective Progress Note Date: 02/14/24 83-year-old patient, history of hypertension, hyperlipidemia, hypothyroidism, atrial fibrillation, coronary artery disease, who presented emergency department because of confusion. According to the patient was confused yesterday morning and improved by nighttime. She stated that he was just not himself and was very sleepy. Patient denies any focal weakness, numbness, visual disturbance, speech difficulty. Had mild confusion over the last 2-3 weeks but was mild leg weakness mostly in the morning. No jerking of any extremity, no bowel incontinence no tongue bite. No history of seizures. feels he patient has not been as sharp in the last 1 year. No official diagnosis of dementia. Patient had a recent ureteral artificial sphincter placed about a month ago and then when he followed up recently with his surgeon to activate the urethral sphincter he was notified to hold off since patient has been having recent confusion. Patient has a history of skin cancer and in the last 2 weeks started on chemotherapy over the left face. does not know exactly what kind of skin cancer but for sure it is not melanoma. No history of strokes in the past. --workup completed in the ER: Blood work completed in ED reveals a WBC of 2.5, hemoglobin of 13.7 and platelet count of 176, sodium 126 0.7, BUN/CREATININE 15/0.70 AND BLOOD GLUCOSE OF 97 CT of the head is reported as degenerative changes with no acute hemorrhage. I reviewed the CT and there is no acute or subacute ischemia. There is no bleed. CT angiography is reported as severe bilateral proximal ICA stenosis. Diminish ed enhancement of the left vertebral artery reference axial image 19 through 27 with distal reconstitution. Could not exclude a thrombus within the left vertebral artery 02/09/2024 Patient is seen and evaluated sitting up in bedside chair; eager to be discharged Vital signs are reviewed and stable with temperature 97.9, pulse 60, respiration 20 and blood pressure 173/88 -Carotid Doppler completed and reveals bilateral carotid artery stenosis of 50 to 69%; vascular surgery on board, given velocities stenosis likely closer to 50%; no intervention recommended at this time 2D echo revealed LVEF 50 to 55%. Abnormal/paradoxical septal motion consistent with postoperative state. No obvious regional wall motion abnormalities. Severe right ventricular dilation. Moderate mitral calcification. Moderate to severe posteriorly directed MR. Mild AAS. Moderate TR. TSH 2.44, vitamin B12 321, folate 10.40, ammonia level < 9. We will start B12 [address] Woods has ordered a routine EEG for his episode of confusion and that would not be done until Saturday. Lipid Panel cholesterol 170, LDL 99, HDL 49 and triglycerides 106. Patient on Lipitor 80 mg daily. Patient was given aspirin 325mg once in the ED and was started on aspirin 325 daily by ED physician. Because of evidence of ICA stenosis, we will place on Plavix 75 mg daily as well. 02/10/24 This is a pleasant 83 years old male who presents with acute stroke related to his left leg weakness and hyponatremia. Patient lying in chair looks comfortable No headache dizziness, he moves both arms and legs symmetrically and freely No chest pain or dyspnea His sodium today was lower 121, nephrology team on the case, placed patient on fluid restriction, blood pressure slightly elevated, we will add norvasc 5 mg from tomorrow given his permissive hypertension related to his acute stroke Also patient has evidence of bilateral carotid artery disease and stenosis 50 to 69%, evaluated by Dr. Granados recommended outpatient follow-up 02/11/24 Patient awake alert, no weakness numbness or other neurological symptom No headache or dizziness or confusion Sodium slightly improving 122 today after 1 dose of IV Lasix yesterday. Continue with fluid restriction Also patient on dual antiplatelet therapy with aspirin and Plavix by neurologist given his internal carotid artery disease, today I discussed with the patient and the need to follow-up with Dr. Granados vascular surgery as an outpatient and they are agreeable Also patient with left cheek cancer status post chemotherapy with his [employer] Dr. Ruby, patient intends to follow-up with him upon discharge in 2 weeks. Also has a cream to start using it by the end of the week. will bring the cream for his left cheek Blood pressure is better after adding Norvasc 02/12/2024 Patient is evaluated today in follow up. Patient reports no numbness, weakness. He is quite weak. Still pending brain MRI/MRA. Sodium 121. Nephrology added samsca. Blood pressure 148/78. 02/13/2024 Patient is evaluated in follow-up he is resting comfortably in the chair having no acute complaints. His sodium level is 127 after he was diuresed as well as a dose of Samsca and nephrology is planning on adding oral diuretics from tomorrow. We will continue to closely monitor his sodium. Reports received from [facility] regarding the urinary sphincter implant and pending follow-up with MRI if patient is able to undergo the brain MRI/MRA. 02/14/2024 Patient is seen in follow-up today with no acute overnight issues noted and sodium continues to be 127 status post Samsca with nephrology following. Patient receiving Lasix and recommend follow-up labs. Patient continues to await MRI and MRI of the brain with neurology following. Patient has been evaluated by vascular surgery with no plans of intervention at this time and have signed off the case recommending outpatient follow-up. Recommend PT/OT therapy evaluation. Review of Systems Constitutional: Denied any fatigue denied any fever. Cardio vascular: denied any chest pain, palpitations Gastrointestinal: denied any nausea, vomiting, diarrhea Pulmonary: Denied any shortness of breath cough Neurologic denied any new focal deficits, reports generalized weakness All inpatient medications were reviewed and appropriate changes in these medications as dictated in the interval history and assessment and plan. PHYSICAL EXAMINATION: GENERAL: The patient is alert and oriented x3, not in any acute distress. Well developed, well nourished. HEENT: Pupils are round and equally reacting to light. EOMI. No scleral icterus. No conjunctival pallor. Normocephalic, atraumatic. No pharyngeal erythema. No thyromegaly. CARDIOVASCULAR: S1 and S2 present. No murmurs, rubs, or gallops. PULMONARY: Chest is clear to auscultation, no wheezing or crackles. ABDOMEN: Soft, nontender, nondistended, normoactive bowel sounds. No palpable organomegaly. MUSCULOSKELETAL: No joint swelling or deformity. EXTREMITIES: No cyanosis, clubbing, or pedal edema. NEUROLOGICAL: Gross neurological examination did not reveal any focal deficits. SKIN: No rashes. Scabs on left cheek. Assessment and Plan 1. Hyponatremia -Patient was on IV fluids and those have been discontinued and per nephrology given a dose of Lasix -Given a dose of samsca x 2 and sodium remains 127, nephrology following -Continue oral diuretics per nephrology. -Repeat BMP in the AM. 2. Altered mental status likely metabolic encephalopathy related to hyponatremia/CVA -Workup completed in ED reveals a CT of the head which is reported as degenerative changes, currently awaiting MRI and MRA -Patient has been placed on aspirin and Lipitor 80 mg nightly -Consult PT/OT/BIAS BINDING CUTTER -Continuous cardiac monitoring; permissive hypertension 3. Bilateral proximal ICA stenosis; with diminished enhancement of left vertebral artery on CT angiography; left vertebral artery thrombus cannot be ruled out -Patient has been evaluated by neurology and given carotid stenosis on CTA, recommending MRI as well as MRA of the brain which is scheduled for today and will await report. Vascular surgery has signed off of the case recommending outpatient follow-up although MRI and MRA brain remain pending 4. Hypertension; Resume losartan and continue amlodipine. 5. Hypothyroidism; thyroxine 75 mcg daily 6. Hyperlipidemia; Lipitor 80 mg p.o. nightly 7. Depression; Zoloft 100 mg daily 8. Skin cancer of the left cheek he follow-up with [employer] as an out patient, he had recent chemotherapy and there is some erythema and discoloration of the left cheek which is stable. will bring the cream to use by the end of the week. Patient and state that patient will follow-up in 2 weeks with his [employer] upon discharge DVT prophylaxis; heparin per recommendation of neurology CODE STATUS; full code Plan: Await MRI of the brain and patient has been cleared by neurology and vascular surgery recommending outpatient follow-up. The dose of Lasix recommended a.m. remains 127 Patient will need outpatient follow-up with neurology, nephrology, and vascular surgery outpatient Possible discharge planning in the next 24 hours The impression and plan of care has been dictated by Rebekah Jara, Nurse Practitioner as directed. Dr. Ruth MD I have performed a history and physical examination and medical decision making of this patient, discussed the same with the dictator, and agree with the dictators assessment and plan as written, documented as a scribe. Based on total visit time, I have performed more than 50% of this visit. Objective - Vital Signs Vital signs: Vital Signs Temp 98.0 F 02/14/24 03:52 Pulse 56 L 02/14/24 03:52 Resp 18 02/14/24 03:52 BP 121/76 02/14/24 03:52 Pulse Ox 96 02/14/24 03:52 FiO2 Intake & Output 02/13/24 02/14/24 02/14/24 18:59 06:59 18:59 Intake Total 480 Output Total 400 250 Balance 80 -250 Weight 94.7 kg Intake: Oral 480 Output: Urine 400 250 Other: Voiding Method External Catheter External Catheter - Labs CBC & Chem 7: 02/15/24 07:37 02/15/24 07:37 Labs: Abnormal Lab Results - Last 24 Hours (Table) 02/13/24 02/14/24 Range/Units 17:53 06:10 Sodium 127 L 127 L (137-145) mmol/L Chloride 94 L (98-107) mmol/L
[2024-02-15] MEDS: ASPIRIN 81 MG PO SCH (09:33)
[2024-02-15] MEDS: TOLVAPTAN 30 MG TABLET PO ONE (11:37)
--- NOTE | 2024-02-15 12:44 | P.PN ---
Subjective patient is seen for follow-up for hyponatremia, hypervolemic. Sodium is improving with diuresis and patient received 2 doses of Samsca. Serum sodium remains at 127 Patient denies any significant complaints. Objective - Vital Signs Vital signs: Vital Signs Temp 97.6 F 02/15/24 11:36 Pulse 57 L 02/15/24 11:36 Resp 17 02/15/24 11:36 BP 113/69 02/15/24 11:36 Pulse Ox 99 02/15/24 11:36 FiO2 Intake & Output 02/14/24 02/15/24 02/15/24 18:59 06:59 18:59 Intake Total 800 0 Output Total 900 400 550 Balance -100 -400 -550 Weight 94.7 kg 97.6 kg Intake: Oral 800 0 Output: Urine 900 400 550 Other: Voiding Method External Catheter External Catheter External Catheter - Exam Patient is awake, comfortable, no acute distress. Examination of the heart S1 and S2 Examination of the lungs decreased breath sounds at the bases Abdomen is soft nontender Examination of lower extremities shows bilateral legs to be wrapped. 1+ edema noted. MANAGER PRIMARY exam grossly intact Significant skin reaction noted on the left side of the face mostly on the cheek with erythema and crusty lesions. - Labs CBC & Chem 7: 02/15/24 07:37 02/15/24 07:37 Labs: Abnormal Lab Results - Last 24 Hours (Table) 02/15/24 Range/Units 07:37 Sodium 127 L (137-145) mmol/L Chloride 95 L (98-107) mmol/L BUN 21 H (9-20) mg/dL Assessment and Plan Assessment: 1. Hyponatremia, mildly hypervolemic. Serum sodium improved and staying at 127 with diuresis and patient received 2 doses of Samsca. 2. Altered mentation likely metabolic encephalopathy versus CVA. 3. Hypothyroidism, TSH 2.4 4. History of skin cancer on the left side of the face with significant skin reaction noted on the cheek. 5. Hypokalemia secondary to diuretics Plan: Continue with oral Lasix. Samsca x 1 today. Repeat labs in a.m.
--- NOTE | 2024-02-15 22:52 | P.PN ---
Subjective Progress Note Date: 02/15/24 83-year-old patient, history of hypertension, hyperlipidemia, hypothyroidism, atrial fibrillation, coronary artery disease, who presented emergency department because of confusion. According to the patient was confused yesterday morning and improved by nighttime. She stated that he was just not himself and was very sleepy. Patient denies any focal weakness, numbness, visual disturbance, speech difficulty. Had mild confusion over the last 2-3 weeks but was mild leg weakness mostly in the morning. No jerking of any extremity, no bowel incontinence no tongue bite. No history of seizures. feels he patient has not been as sharp in the last 1 year. No official diagnosis of dementia. Patient had a recent ureteral artificial sphincter placed about a month ago and then when he followed up recently with his surgeon to activate the urethral sphincter he was notified to hold off since patient has been having recent confusion. Patient has a history of skin cancer and in the last 2 weeks started on chemotherapy over the left face. does not know exactly what kind of skin cancer but for sure it is not melanoma. No history of strokes in the past. --workup completed in the ER: Blood work completed in ED reveals a WBC of 2.5, hemoglobin of 13.7 and platelet count of 176, sodium 126 0.7, BUN/CREATININE 15/0.70 AND BLOOD GLUCOSE OF 97 CT of the head is reported as degenerative changes with no acute hemorrhage. I reviewed the CT and there is no acute or subacute ischemia. There is no bleed. CT angiography is reported as severe bilateral proximal ICA stenosis. Diminished enhancement of the left vertebral artery reference axial image 19 through 27 with distal reconstitution. Could not exclude a thrombus within the left vertebral artery 02/09/2024 Patient is seen and evaluated sitting up in bedside chair; eager to be discharged Vital signs are reviewed and stable with temperature 97.9, pulse 60, respiration 20 and blood pressure 173/88 -Carotid Doppler completed and reveals bilateral carotid artery stenosis of 50 to 69%; vascular surgery on board, given velocities stenosis likely closer to 50%; no intervention recommended at this time 2D echo revealed LVEF 50 to 55%. Abnormal/paradoxical septal motion consistent with postoperative state. No obvious regional wall motion abnormalities. Severe right ventricular dilation. Moderate mitral calcification. Moderate to severe posteriorly directed MR. Mild AAS. Moderate TR. TSH 2.44, vitamin B12 321, folate 10.40, ammonia level < 9. We will start B12 [address] Woods has ordered a routine EEG for his episode of confusion and that would not be done until Saturday. Lipid Panel cholesterol 170, LDL 99, HDL 49 and triglycerides 106. Patient on Lipitor 80 mg daily. Patient was given aspirin 325mg once in the ED and was started on aspirin 325 daily by ED physician. Because of evidence of ICA stenosis, we will place on Plavix 75 mg daily as well. 02/10/24 This is a pleasant 83 years old male who presents with acute stroke related to his left leg weakness and hyponatremia. Patient lying in chair looks comfortable No headache dizziness, he moves both arms and legs symmetrically and freely No chest pain or dyspnea His sodium today was lower 121, nephrology team on the case, placed patient on fluid restriction, blood pressure slightly elevated, we will add norvasc 5 mg from tomorrow given his permissive hypertension related to his acute stroke Also patient has evidence of bilateral carotid artery disease and stenosis 50 to 69%, evaluated by Dr. Granados recommended outpatient follow-up 02/11/24 Patient awake alert, no weakness numbness or other neurological symptom No headache or dizziness or confusion Sodium slightly improving 122 today after 1 dose of IV Lasix yesterday. Co ntinue with fluid restriction Also patient on dual antiplatelet therapy with aspirin and Plavix by neurologist given his internal carotid artery disease, today I discussed with the patient and the need to follow-up with Dr. Granados vascular surgery as an outpatient and they are agreeable Also patient with left cheek cancer status post chemotherapy with his [place] professor Dr. Ruby, patient intends to follow-up with him upon discharge in 2 weeks. Also has a cream to start using it by the end of the week. will bring the cream for his left cheek Blood pressure is better after adding Norvasc 02/12/2024 Patient is evaluated today in follow up. Patient reports no numbness, weakness. He is quite weak. Still pending brain MRI/MRA. Sodium 121. Nephrology added samsca. Blood pressure 148/78. 02/13/2024 Patient is evaluated in follow-up he is resting comfortably in the chair having no acute complaints. His sodium level is 127 after he was diuresed as well as a dose of Samsca and nephrology is planning on adding oral diuretics from tomorrow. We will continue to closely monitor his sodium. Reports received from [facility] regarding the urinary sphincter implant and pending follow-up with MRI if patient is able to undergo the brain MRI/MRA. 02/14/2024 Patient is seen in follow-up today with no acute overnight issues noted and sodium continues to be 127 status post Samsca with nephrology following. Patient receiving Lasix and recommend follow-up labs. Patient continues to await MRI and MRI of the brain with neurology following. Patient has been evaluated by vascular surgery with no plans of intervention at this time and have signed off the case recommending outpatient follow-up. Recommend PT/OT therapy evaluation. 02/15/2024 Patient is sitting in the chair. Awake alert and oriented x 3. Mentation is much improved. Sodium level is 127 today. Patient is on Lasix. Nephrology is on board. Patient received Samsca dose x 2. Afebrile. Currently on room air. MRI of the brain showed no evidence of intracranial mass/acute/subacute infarct. Nonspecific white matter changes. 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 MRI of the brain showed a similar high-grade stenosis of the bilateral proximal ICA. Of bleeding in the entirety is poorly visualized due to slice section on the left there is up to 57% stenosis at the carotid bifurcation. The vertebral artery is poorly evaluated in the intracranial portion possibly due to motion. There appears to be thrombus within the intracranial portion on prior CT and prior MRI. No evidence of aneurysm. Review of Systems Constitutional: Denied any fatigue denied any fever. Cardio vascular: denied any chest pain, palpitations Gastrointestinal: denied any nausea, vomiting, diarrhea Pulmonary: Denied any shortness of breath cough Neurologic denied any new focal deficits, reports generalized weakness All inpatient medications were reviewed and appropriate changes in these medications as dictated in the interval history and assessment and plan. PHYSICAL EXAMINATION: GENERAL: The patient is alert and oriented x3, not in any acute distress. Well developed, well nourished. HEENT: Pupils are round and equally reacting to light. EOMI. No scleral icterus. No conjunctival pallor. Normocephalic, atraumatic. No pharyngeal erythema. No thyromegaly. CARDIOVASCULAR: S1 and S2 present. No murmurs, rubs, or gallops. PULMONARY: Chest is clear to auscultation, no wheezing or crackles. ABDOMEN: Soft, nontender, nondistended, normoactive bowel sounds. No palpable organomegaly. MUSCULOSKELETAL: No joint swelling or deformity. EXTREMITIES: No cyanosis, clubbing, or pedal edema. NEUROLOGICAL: Gross neurological examination did not reveal any focal deficits. SKIN: No rashes. Scabs on left cheek. Assessment and Plan 1. Hyponatremia -Patient was on IV fluids and those have been discontinued and per nephrology given a dose of Lasix -Given a dose of samsca x 2 and sodium remains 127, nephrology following -Continue oral diuretics per nephrology. -Repeat BMP in the AM. 2. Altered mental status likely metabolic encephalopathy related to hyponatremia/CVA -Workup completed in ED reveals a CT of the head which is reported as degenerative changes, MRI and MRA report as above. -Patient has been placed on aspirin and Lipitor 80 mg nightly -Consult PT/OT/SCIENTIST/ENGINEER -Continuous cardiac monitoring; permissive hypertension 3. Bilateral proximal ICA stenosis; with diminished enhancement of left vert ebral artery on CT angiography; left vertebral artery thrombus cannot be ruled out -Patient has been evaluated by neurology and given carotid stenosis on CTA, MRI as well as MRA of the brain was done. Report as above. Vascular surgery has signed off of the case recommending outpatient follow-up although MRI and MRA brain remain pending 4. Hypertension; Resume losartan and continue amlodipine. 5. Hypothyroidism; thyroxine 75 mcg daily 6. Hyperlipidemia; Lipitor 80 mg p.o. nightly 7. Depression; Zoloft 100 mg daily 8. Skin cancer of the left cheek he follow-up with [employer] professor as an outpatient, he had recent chemotherapy and there is some erythema and discoloration of the left cheek which is stable. will bring the cream to use by the end of the week. Patient and state that patient will follow-up in 2 weeks with his [place] professor upon discharge DVT prophylaxis; heparin per recommendation of neurology CODE STATUS; full code Plan: MRI/MRI of the brain was deferred. Patient has been cleared by neurology and vascular surgery recommending outpatient follow-up. The dose of Lasix recommended a.m. remains 127 Patient will need outpatient follow-up with neurology, nephrology, and vascular surgery outpatient Possible discharge planning in the next 24 hours Objective - Vital Signs Vital signs: Vital Signs Temp 97.6 F 02/15/24 11:36 Pulse 57 L 02/15/24 11:36 Resp 17 02/15/24 11:36 BP 113/69 02/15/24 11:36 Pulse Ox 99 02/15/24 11:36 FiO2 Intake & Output 02/14/24 02/15/24 02/15/24 18:59 06:59 18:59 Intake Total 800 0 Output Total 900 400 550 Balance -100 -400 -550 Weight 94.7 kg 97.6 kg Intake: Oral 800 0 Output: Urine 900 400 550 Other: Voiding Method External Catheter External Catheter External Catheter - Labs CBC & Chem 7: 02/15/24 07:37 02/15/24 07:37 Labs: Abnormal Lab Results - Last 24 Hours (Table) 02/15/24 Range/Units 07:37 Sodium 127 L (137-145) mmol/L Chloride 95 L (98-107) mmol/L BUN 21 H (9-20) mg/dL
[2024-02-15 23:58] VITALS: RESP 16
[2024-02-16 06:54] LABS: African American GFR (CKD) >90 (>60 ml/min/1.73 sqM); Anion Gap 7 mmol/L; Blood Urea Nitrogen 23 mg/dL (9-20); Calcium 9.3 mg/dL (8.4-10.2); Carbon Dioxide 27 mmol/L (22-30); Chloride 97 mmol/L (98-107); Glucose 96 mg/dL (74-99); Non-African American GFR(CKD) 81 (>60 ml/min/1.73 sqM); Potassium 3.8 mmol/L (3.5-5.1); Sodium 131 mmol/L (137-145)
[2024-02-16 07:49] VITALS: TEMP 97.5
--- NOTE | 2024-02-16 12:25 | P.PN ---
Subjective patient is seen for follow-up for hyponatremia, hypervolemic. Sodium is improving with diuresis and patient received 2 doses of Samsca. Serum sodium improved to 131 Patient denies any significant complaints. Objective - Vital Signs Vital signs: Vital Signs Temp 97.5 F L 02/16/24 07:38 Pulse 56 L 02/16/24 07:39 Resp 16 02/16/24 07:38 BP 134/73 02/16/24 07:38 Pulse Ox 97 02/16/24 07:38 FiO2 Intake & Output 02/15/24 02/16/24 02/16/24 18:59 06:59 18:59 Intake Total 120 238 Output Total 1175 50 Balance -1055 188 Weight 93.6 kg Intake: Oral 120 238 Output: Urine 1175 50 Other: Voiding Method External Catheter External Catheter External Catheter - Exam Patient is awake, comfortable, no acute distress. Examination of the heart S1 and S2 Examination of the lungs decreased breath sounds at the bases Abdomen is soft nontender Examination of lower extremities shows bilateral legs to be wrapped. 1+ edema noted. MEDICAL SURGERY NURSE exam grossly intact - Labs CBC & Chem 7: 02/15/24 07:37 02/16/24 05:53 Labs: Abnormal Lab Results - Last 24 Hours (Table) 02/16/24 Range/Units 05:53 Sodium 131 L (137-145) mmol/L Chloride 97 L (98-107) mmol/L BUN 23 H (9-20) mg/dL Assessment and Plan Assessment: 1. Hyponatremia, mildly hypervolemic. Serum sodium improved with diuresis and Samsca. 2. Altered mentation likely metabolic encephalopathy versus CVA. Improved. 3. Hypothyroidism, TSH 2.4 4. History of skin cancer on the left side of the face with significant skin reaction noted on the cheek. 5. Hypokalemia secondary to diuretics Plan: Patient is stable for discharge from nephrology standpoint. Continue with oral Lasix. Hold hydrochlorothiazide. Repeat labs in 3 to 4 days post discharge.
[2024-02-16 12:30] VITALS: BP 128/69; PULSE 62
== END 2024-02-16 14:44 | disposition home health service (06) | DRG 64 ==
LOC: EC 10:09 → 3SCARD 14:40
PROVIDERS: ADMIT Hospitalist; ATTEND Hospitalist
DX: I63.233 Cerebral infarction due to unspecified occlusion or stenosis of bilateral carotid arteries (principal); G93.41 Metabolic encephalopathy; E87.1 Hypo-osmolality and hyponatremia; I48.20 Chronic atrial fibrillation, unspecified; K55.9 Vascular disorder of intestine, unspecified; E03.9 Hypothyroidism, unspecified; E78.5 Hyperlipidemia, unspecified; E87.6 Hypokalemia; E87.70 Fluid overload, unspecified; F32.A Depression, unspecified; I10 Essential (primary) hypertension; I25.10 Atherosclerotic heart disease of native coronary artery without angina pectoris; G83.14 Monoplegia of lower limb affecting left nondominant side; C44.309 Unspecified malignant neoplasm of skin of other parts of face; I65.02 Occlusion and stenosis of left vertebral artery; N32.81 Overactive bladder; G47.30 Sleep apnea, unspecified; K21.9 Gastro-esophageal reflux disease without esophagitis; R29.700 NIHSS score 0; T50.2X5A Adverse effect of carbonic-anhydrase inhibitors, benzothiadiazides and other diuretics, initial encounter; Y92.230 Patient room in hospital as the place of occurrence of the external cause; I25.2 Old myocardial infarction; Z96.1 Presence of intraocular lens; Z96.643 Presence of artificial hip joint, bilateral; Z79.60 Long term (current) use of unspecified immunomodulators and immunosuppressants; Z79.899 Other long term (current) drug therapy; Z79.890 Hormone replacement therapy; Z85.46 Personal history of malignant neoplasm of prostate; Z86.16 Personal history of COVID-19; Z87.891 Personal history of nicotine dependence; Z95.1 Presence of aortocoronary bypass graft
CPT/HCPCS: 36415; 70450; 70496; 70498; 70549; 70551; 71046; 80048; 80053; 80061; 80320; 82140; 82550; 82607; 82746; 83735; 83930; 83935; 84295; 84300; 84443; 84484; 85025; 85610; 85730; 93005; 93306; 93880; 95816; 96360; 96361; 96372; 99291

== ENCOUNTER → 2024-03-13 | Outpatient (CLI) | payer MEDICARE, BC ==
[2024-03-13 20:35] LABS: Anion Gap 11.3 mmol/L (4.00-12.00); Carbon Dioxide 23.7 mmol/L (21.6-31.8); Potassium 4.7 mmol/L (3.5-5.5)
== END | disposition home or self-care (01) ==
LOC: LABWHC1 14:01
PROVIDERS: ATTEND Family Medicine
DX: E87.1 Hypo-osmolality and hyponatremia (principal)
CPT/HCPCS: 36415; 80051

== ENCOUNTER → 2024-04-06 | Outpatient (CLI) | payer MEDICARE, BC ==
[2024-04-06 15:58] LABS: African American GFR (CKD) >90 (>60 ml/min/1.73 sqM); Blood Urea Nitrogen 16 mg/dL (9-20); Non-African American GFR(CKD) 81 (>60 ml/min/1.73 sqM)
[2024-04-06 17:30] LABS: Potassium 4.4 mmol/L (3.5-5.1)
--- NOTE | 2024-04-06 19:31 | CT ---
EXAMINATION TYPE: CT chest wo/w con DATE OF EXAM: 04/06/2024 4:35 PM COMPARISON: 11/02/2020. CLINICAL INDICATION: Male, 83 years old with history of J90 PLEURAL EFFUSION E 87.70 FLUID OVERLOAD; PHH, known Left lung effusion. Chronic SOB, history of asthma and COPD. TECHNIQUE: Multiple axial images were obtained through the chest. Sagittal and coronal reformats were created for review. MIP was performed on a separate workstation. Contrast used:100 mL of Isovue 370 with IV Contrast (None if empty) Oral contrast used: (None if empty) CT DLP: 857 mGycm, Automated exposure control for dose reduction was used. FINDINGS: LUNGS/ PLEURA: No focal consolidation, pneumothorax or significant pleural effusion. No clinically si gnificant pulmonary nodules. Streaky atelectasis in the lung bases particularly the lateral left cost ophrenic angle. No evidence for pulmonary edema. AIRWAY: Patent and unremarkable. HEART: The heart is increased in size..Atherosclerosis of the arterial vasculature. MEDIASTINUM: No gross evidence of adenopathy. 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 No evidence for aneurysm. No dissection. No filling defect to suggest pulmonary embolus. Scattered atherosclerosis which is [id number]. MUSCULOSKELETAL: No acute osseous abnormalities sternotomy wires present. SOFT TISSUES/LYMPH NODES: Unremarkable. LOWER NECK: No significant findings. UPPER ABDOMEN: No significant findings. IMPRESSION: 1. No evidence for acute heart failure. Mild cardiomegaly with moderate coronary artery atherosclero sis. Left atelectasis in the costophrenic angle 2. No evidence for acute thoracic process. 3. 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 Follow up recommendations for incidental pulmonary nodules, if there are any, are per [employer] [place] [employer] [employer] or [employer]. https://radiopaedia.org/articles/mesuxgufzm-cktrdes-hmwvmvkoo-[email or web address]-[email or web address]?lang=us [facility], Workstation: [id number], 04/06/2024 7:29 PM
== END | disposition home or self-care (01) ==
LOC: RADCTMAIN 15:11
PROVIDERS: ATTEND Family Medicine
CPT/HCPCS: 36415; 71270; 80051; 82565; 84520

== ENCOUNTER 2024-07-28 04:25 | Inpatient (IN) | payer MEDICARE, BC ==
[2024-07-28] MEDS ORDERED: LORazepam 0.5 MG TAB PO PRN (04:36)
[2024-07-28] MEDS ORDERED: LORazepam 1 MG TAB PO PRN ×3 (04:36)
[2024-07-28] MEDS ORDERED: LORazepam 2 MG/ML INJ IV PRN ×3 (04:36)
--- NOTE | 2024-07-28 04:37 | ED ---
Fall HPI - General Stated Complaint: fall Time Seen by Provider: 07/28/24 04:33 Source: RN notes reviewed, old records reviewed Mode of arrival: ambulatory Limitations: no limitations - History of Present Illness Initial Comments: This is a 84-year-old male to the ER for evaluation of altered mental status weakness found down unsure of injury or fall patient is covered in own feces unable to take care of himself clearly is a poor historian secondary to altered mental status MD Complaint: fall Fall From: standing When Fall Occurred: unsure Place Fall Occurred: home Loss of Consciousness: none Prolonged Down Time?: no Symptoms Prior to Fall: none Severity: moderate Context: tripped/slipped, alcohol use Associated Symptoms: denies - Related Data Home Medications Medication Instructions Recorded Confirmed Levothyroxine Sodium [Levoxyl] 75 mcg PO DAILY 07/22/18 07/28/24 Pantoprazole Sodium [Protonix] 40 mg PO DAILY 11/01/20 07/28/24 Centrum Mini Silver Adult 50+ 1 tab PO DAILY 07/28/24 07/28/24 Melatonin 3 mg PO HS 07/28/24 07/28/24 Sertraline [Zoloft] 50 mg PO DAILY 07/28/24 07/28/24 Previous Rx's Medication Instructions Recorded Clopidogrel [Plavix] 75 mg PO DAILY #30 tab 02/16/24 Cyanocobalamin [Vitamin B-12] 1,000 mcg PO DAILY #30 tab 02/16/24 Allergies Allergy/AdvReac Type Severity Reaction Status Date / Time Uupbltf-[id number]-PsN Reductase Allergy Severe Rash/Hives Verified 07/28/24 09:36 Inhibitor [Qecrckl-Uoq-Ysz Reductase Inhibitor] Review of Systems ROS Statement: Those systems with pertinent positive or pertinent negative responses have been documented in the HPI. ROS Other: All systems not noted in ROS Statement are negative. Past Medical History Past Medical History: Atrial Fibrillation, Coronary Artery Disease (CAD), Cancer, Chest Pain / Angina, GERD/Reflux, Hyperlipidemia, Hypertension, Myocardial Infarction (OR), Osteoarthritis (OA), Prostate Disorder, Sleep Apnea/CPAP/BIPAP, Thyroid Disorder Additional Past Medical History / Comment(s): Hypothyroid, hyperactive bladder, A. fib (refuses anticoagulation). SEPTIC ARTHRITIS. diverticulosis Last Myocardial Infarction Date:: unknown History of Any Multi-Drug Resistant Organisms: None Reported Past Surgical History: Heart Catheterization, Tonsillectomy Additional Past Surgical History / Comment(s): radioactive seed implants for prostate cancer, cataracts removed-lens implants, bladder control device implanted 07-10-17 and removed 07-18-18, colonoscopy/polypectomy-benign. bilateral hip replaced. bone infection post op right hip. Past Anesthesia/Blood Transfusion Reactions: No Reported Reaction Additional Past Anesthesia/Blood Transfusion Reaction / Comment(s): has never had any blood transfusion Past Psychological History: No Psychological Hx Reported Smoking Status: Former smoker Past Alcohol Use History: Daily Past Drug Use History: None Reported - Past Family History Mother Family Medical History: Cancer Additional Family Medical History / Comment(s): from colon cancer at age 60 Father Family Medical History: Liver Disease Additional Family Medical History / Comment(s): from cirrhosis of the liver at age 59 they felt it was d/t farming chemicals 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 General Exam General appearance: alert, in no apparent distress Head exam: Present: atraumatic, normocephalic, normal inspection Eye exam: Present: normal appearance, PERRL, EOMI. Absent: scleral icterus, conjunctival injection, periorbital swelling ENT exam: Present: normal exam, mucous membranes moist Neck exam: Present: normal inspection. Absent: tenderness, meningismus, lymphadenopathy Respiratory exam: Present: normal lung sounds bilaterally. Absent: respiratory distress, wheezes, rales, rhonchi, stridor Cardiovascular Exam: Present: regular rate, normal rhythm, tachycardia, normal h eart sounds. Absent: systolic murmur, diastolic murmur, rubs, gallop, clicks GI/Abdominal exam: Present: soft, normal bowel sounds. Absent: distended, tenderness, guarding, rebound, rigid Extremities exam: Present: normal inspection, full ROM, normal capillary refill. Absent: tenderness, pedal edema, joint swelling, calf tenderness Back exam: Present: normal inspection Neurological exam: Present: alert, oriented X3, CN II-XII intact Psychiatric exam: Present: normal affect, normal mood Skin exam: Present: warm, dry, intact, normal color. Absent: rash Course Vital Signs 07/28/24 07/28/24 07/28/24 04:57 06:27 11:04 Temperature 100.4 F H 98.3 F Pulse Rate 85 85 65 Respiratory 16 18 18 Rate Blood Pressure 119/60 128/84 112/80 O2 Sat by Pulse 93 L 93 L 96 Oximetry 07/28/24 07/28/24 07/28/24 14:17 15:06 16:00 Temperature 98.5 F Pulse Rate 68 66 72 Respiratory 18 16 20 Rate Blood Pressure 134/67 108/72 117/68 O2 Sat by Pulse 96 94 L 98 Oximetry - Reevaluation(s) Reevaluation #1: 07/28/24 06:18 Records reviewed Reevaluation #2: 07/28/24 06:18 Patient symptoms unchanged Reevaluation #3: 07/28/24 06:18 Patient informed of results questions answered Reevaluation #4: Was pt. sent in by a medical professional or institution (, CHAZ, BUSINESS ADVISOR, urgent care, hospital, or fci...) When possible be specific @ -no Did you speak to anyone other than the patient for history (EMS, parent, family, police, friend...)? What history was obtained from this source @ -no Did you review nursing and triage notes (agree or disagree)? Why? @ -agree Are old charts reviewed (outside hosp., previous admission, EMS record, old EKG, old radiological studies, urgent care reports/EKG's, fci records)? Report findings @ -yes Differential Diagnosis (chest pain, altered mental status, abdominal pain women, abdominal pain men, vaginal bleeding, weakness, fever, dyspnea, syncope, headache, dizziness, GI bleed, back pain, seizure, CVA, palpatations, mental health, musculoskeletal)? @ -prior EKG interpreted by me (3pts min.). @ -yes X-rays interpreted by me (1pt min.). @ -yes negative for acute disease CT interpreted by me (1pt min.). @ -yes negative for acute disease U/S interpreted by me (1pt. min.). @ -no What testing was considered but not performed or refused? (CT, X-rays, U/S, labs)? Why? @ -none What meds were considered but not given or refused? Why? @ -none Did you discuss the management of the patient with other professionals (professionals i.e. CHAZ Fallon, BUSINESS ADVISOR, lab, RT, psych nurse, social science teacher, real estate lawyer, teacher, chief innovation officer, director of casework department)? Give summary @ -no Was smoking cessation discussed for >3mins.? @ -no Was critical care preformed (if so, how long)? @ -no Were there social determinants of health that impacted care today? How? (Homelessness, low income, unemployed, alcoholism, drug addiction, transportation, low edu. Level, literacy, decrease access to med. care, halfway, rehab)? @ -none Was there de-escalation of care discussed even if they declined (Discuss DNR or withdrawal of care, Hospice)? DNR status @ -no What co-morbidities impacted this encounter? (DM, HTN, Smoking, COPD, CAD, Cancer, CVA, ARF, Chemo, Hep., AIDS, mental health diagnosis, sleep apnea, morbid obesity)? @ -none Was patient admitted / discharged? Hospital course, mention meds given and route, prescriptions, significant lab abnormalities, going to OR and other pertinent info. @ - 84 male will be admitted after a fall fall from standing patient was actually found down covered in his own stool and ability to take care of himself and ability to get up, patient is confused and altered' Admitted Undiagnosed new problem with uncertain prognosis? @ -no Drug Therapy requiring intensive monitoring for toxicity (Heparin, Nitro, Insulin, Cardizem)? @ -no Were any procedures done? @ -no Diagnosis/symptom? @ -Altered mental status, found down debility Acute, or Chronic, or Acute on Chronic? @ -Acute Uncomplicated (without systemic symptoms) or Complicated (systemic symptoms)? @ -Complicated Side effects of treatment? @ -no Exacerbation, Progression, or Severe Exacerbation? @ -exacerbation Poses a threat to life or bodily function? How? (Chest pain, USA, OR, pneumonia, PE, COPD, DKA, ARF, appy, cholecystitis, CVA, Diverticulitis, Homicidal, Suicidal, threat to staff... and all critical care pts) @ -yes extremes of age Reevaluation #5: Differential Fever: Pneumonia, viral URI, endocarditis, myocarditis, pericarditis, otitis, sinusitis, peritonsillar Abscess, retropharyngeal Abscess, epiglottitis, peritonitis, appendicitis, Veronica cystitis, diverticulitis, hepatitis, colitis, UTI, PID, TOA, pyelonephritis, prostatitis, epididymitis, meningitis, e ncephalitis, pulmonary embolism, CVA, thyroid storm, pancreatitis, adrenal crisis, cavernous sinus thrombosis, this is not meant to be an all-inclusive list. Differential Altered Mental Status: Hypoglycemia, DKA, hypercapnia, ETOH, overdose, CO poisoning, trauma, myxedema coma, HTN encephalopathy, infection, encephalitis, psychosis, intercranial hemorrhage, hepatic encephalopathy, meningitis, CVA, this is not meant to be an all-inclusive list Differential Weakness: Hypoglycemia, shock, sepsis, hyponatremia, anemia, infection, OR, ETOH, adverse medicine reaction, overdose, stroke, this is not meant to be an all-inclusive list. Medical Decision Making - Medical Decision Making 84 male will be admitted after a fall fall from standing patient was actually found down covered in his own stool and ability to take care of himself and ability to get up, patient is confused and altered - Lab Data Result diagrams: 07/29/24 03:39 07/30/24 03:16 Lab Results 07/28/24 07/28/24 07/28/24 Range/Units 05:03 05:03 05:08 WBC 14.0 H (3.8-10.6) k/uL RBC 4.72 (4.30-5.90) m/uL Hgb 14.3 (13.0-17.5) gm/dL Hct 43.9 (39.0-53.0) % MCV 93.1 (80.0-100.0) fL MCH 30.2 (25.0-35.0) pg MCHC 32.5 (31.0-37.0) g/dL RDW 13.6 (11.5-15.5) % Plt Count 240 (150-450) k/uL MPV 7.6 Absolute Nucleated RBC % Neutrophils % 93 % Lymphocytes % 2 % Monocytes % 4 % Eosinophils % 0 % Basophils % 0 % Neutrophils # 13.0 H (1.3-7.7) k/uL Lymphocytes # 0.3 L (1.0-4.8) k/uL Monocytes # 0.6 (0-1.0) k/uL Eosinophils # 0.1 (0-0.7) k/uL Basophils # 0.0 (0-0.2) k/uL NRBC/100 WBC Diff (0.00-0.01) X 10*3/uL Sodium 133 L (137-145) mmol/L Potassium 4.6 (3.5-5.1) mmol/L Chloride 96 L (98-107) mmol/L Carbon Dioxide 20 L (22-30) mmol/L Anion Gap 17 mmol/L BUN 22 H (9-20) mg/dL Creatinine 1.09 (0.66-1.25) mg/dL Est GFR (CKD-EPI) (>=60) Est GFR (CKD-EPI)AfAm 71 (>60 ml/min/1.73 sqM) Est GFR (CKD-EPI)NonAf 62 (>60 ml/min/1.73 sqM) BUN/Creatinine Ratio (12.00-20.00) Ratio Glucose 156 H (74-99) mg/dL Calcium 8.7 (8.4-10.2) mg/dL Phosphorus 3.0 (2.5-4.5) mg/dL Magnesium 2.0 (1.6-2.3) mg/dL Total Bilirubin 1.6 H (0.2-1.3) mg/dL AST 42 (17-59) U/L ALT 17 (4-49) U/L Alkaline Phosphatase 64 (38-126) U/L Creatine Kinase 1181 H* (55-170) U/L Total Protein 6.9 (6.3-8.2) g/dL Albumin 4.3 (3.5-5.0) g/dL Lipase 64 (23-300) U/L Urine Color Urine Appearance (Clear) Urine pH (5.0-8.0) Ur Specific [place] (1.001-1.035) Urine Protein (Negative) Urine Glucose (UA) (Negative) Urine Ketones (Negative) Urine Blood (Negative) Urine Nitrite (Negative) Urine Bilirubin (Negative) Urine Urobilinogen (<2.0) mg/dL Ur Leukocyte Esterase (Negative) Urine RBC (0-5) /hpf Urine WBC (0-5) /hpf Ur Squamous Epith Cells (0-4) /hpf Urine Bacteria (None) /hpf Urine Mucus (None) /hpf Serum Alcohol <10 mg/dL Influenza Type A (PCR) (Not Detectd) Influenza Type B (PCR) (Not Detectd) RSV (PCR) (Not Detectd) SARS-CoV-2 (PCR) (Not Detectd) 07/28/24 07/28/24 07/29/24 Range/Units 05:08 06:27 03:39 WBC (3.8-10.6) k/uL RBC (4.30-5.90) m/uL Hgb (13.0-17.5) gm/dL Hct (39.0-53.0) % MCV (80.0-100.0) fL MCH (25.0-35.0) pg MCHC (31.0-37.0) g/dL RDW (11.5-15.5) % Plt Count (150-450) k/uL MPV Absolute Nucleated RBC % Neutrophils % % Lymphocytes % % Monocytes % % Eosinophils % % Basophils % % Neutrophils # (1.3-7.7) k/uL Lymphocytes # (1.0-4.8) k/uL Monocytes # (0-1.0) k/uL Eosinophils # (0-0.7) k/uL Basophils # (0-0.2) k/uL NRBC/100 WBC Diff (0.00-0.01) X 10*3/uL Sodium 135 (137-145) mmol/L Potassium 4.0 (3.5-5.1) mmol/L Chloride 100 (98-107) mmol/L Carbon Dioxide 22.2 (22-30) mmol/L Anion Gap 12.80 H mmol/L BUN 29.1 H (9-20) mg/dL Creatinine 2.0 H (0.66-1.25) mg/dL Est GFR (CKD-EPI) 32 L (>=60) Est GFR (CKD-EPI)AfAm (>60 ml/min/1.73 sqM) Est GFR (CKD-EPI)NonAf (>60 ml/min/1.73 sqM) BUN/Creatinine Ratio 14.55 (12.00-20.00) Ratio Glucose 114 H (74-99) mg/dL Calcium 8.2 L (8.4-10.2) mg/dL Phosphorus 4.0 (2.5-4.5) mg/dL Magnesium 2.2 (1.6-2.3) mg/dL Total Bilirubin (0.2-1.3) mg/dL AST (17-59) U/L ALT (4-49) U/L Alkaline Phosphatase (38-126) U/L Creatine Kinase (55-170) U/L Total Protein (6.3-8.2) g/dL Albumin (3.5-5.0) g/dL Lipase (23-300) U/L Urine Color Yellow Urine Appearance Cloudy (Clear) Urine pH 5.5 (5.0-8.0) Ur Specific [place] 1.014 (1.001-1.035) Urine Protein 1+ H (Negative) Urine Glucose (UA) Negative (Negative) Urine Ketones Negative (Negative) Urine Blood Large H (Negative) Urine Nitrite Negative (Negative) Urine Bilirubin Negative (Negative) Urine Urobilinogen <2.0 (<2.0) mg/dL Ur Leukocyte Esterase Negative (Negative) Urine RBC 1 (0-5) /hpf Urine WBC 3 (0-5) /hpf Ur Squamous Epith Cells <1 (0-4) /hpf Urine Bacteria Rare H (None) /hpf Urine Mucus Rare H (None) /hpf Serum Alcohol mg/dL Influenza Type A (PCR) Not Detected (Not Detectd) Influenza Type B (PCR) Not Detected (Not Detectd) RSV (PCR) Not Detected (Not Detectd) SARS-CoV-2 (PCR) Not Detected (Not Detectd) 07/29/24 Range/Units 03:39 WBC 9.83 (3.8-10.6) k/uL RBC 4.64 (4.30-5.90) m/uL Hgb 13.7 (13.0-17.5) gm/dL Hct 42.5 (39.0-53.0) % MCV 91.6 (80.0-100.0) fL MCH 29.5 (25.0-35.0) pg MCHC 32.2 (31.0-37.0) g/dL RDW 14.5 (11.5-15.5) % Plt Count 214 (150-450) k/uL MPV 10.8 Absolute Nucleated RBC 0 % Neutrophils % % Lymphocytes % % Monocytes % % Eosinophils % % Basophils % % Neutrophils # (1.3-7.7) k/uL Lymphocytes # (1.0-4.8) k/uL Monocytes # (0-1.0) k/uL Eosinophils # (0-0.7) k/uL Basophils # (0-0.2) k/uL NRBC/100 WBC Diff 0 (0.00-0.01) X 10*3/uL Sodium (137-145) mmol/L Potassium (3.5-5.1) mmol/L Chloride (98-107) mmol/L Carbon Dioxide (22-30) mmol/L Anion Gap mmol/L BUN (9-20) mg/dL Creatinine (0.66-1.25) mg/dL Est GFR (CKD-EPI) (>=60) Est GFR (CKD-EPI)AfAm (>60 ml/min/1.73 sqM) Est GFR (CKD-EPI)NonAf (>60 ml/min/1.73 sqM) BUN/Creatinine Ratio (12.00-20.00) Ratio Glucose (74-99) mg/dL Calcium (8.4-10.2) mg/dL Phosphorus (2.5-4.5) mg/dL Magnesium (1.6-2.3) mg/dL Total Bilirubin (0.2-1.3) mg/dL AST (17-59) U/L ALT (4-49) U/L Alkaline Phosphatase (38-126) U/L Creatine Kinase (55-170) U/L Total Protein (6.3-8.2) g/dL Albumin (3.5-5.0) g/dL Lipase (23-300) U/L Urine Color Urine Appearance (Clear) Urine pH (5.0-8.0) Ur Specific [place] (1.001-1.035) Urine Protein (Negative) Urine Glucose (UA) (Negative) Urine Ketones (Negative) Urine Blood (Negative) Urine Nitrite (Negative) Urine Bilirubin (Negative) Urine Urobilinogen (<2.0) mg/dL Ur Leukocyte Esterase (Negative) Urine RBC (0-5) /hpf Urine WBC (0-5) /hpf Ur Squamous Epith Cells (0-4) /hpf Urine Bacteria (None) /hpf Urine Mucus (None) /hpf Serum Alcohol mg/dL Influenza Type A (PCR) (Not Detectd) Influenza Type B (PCR) (Not Detectd) RSV (PCR) (Not Detectd) SARS-CoV-2 (PCR) (Not Detectd) - Radiology Data Radiology results: report reviewed (CT brain C-spine chest and pelvis x-ray negative for acute disease), image reviewed Disposition Clinical Impression: Fall, Pre-syncope, Syncope, Delirium due to general medical condition, Altered mental status, Fever Disposition: ADMITTED IP TO THIS HOSP Condition: Fair Is patient prescribed a controlled substance at d/c from ED?: No Time of Disposition: 06:00
[2024-07-28 05:27] LABS: Basophils % (A) 0 %; Eosinophils # (A) 0.1 k/uL (0-0.7); Eosinophils % (A) 0 %; HCT 43.9 % (39.0-53.0); HGB 14.3 gm/dL (13.0-17.5); Lymphocytes # (A) 0.3 k/uL (1.0-4.8); Lymphocytes % (A) 2 %; MCH 30.2 pg (25.0-35.0); MCHC 32.5 g/dL (31.0-37.0); MCV 93.1 fL (80.0-100.0); Mean Platelet Volume 7.6; Monocytes # (A) 0.6 k/uL (0-1.0); Monocytes % (A) 4 %; Neutrophils % (A) 93 %; Platelet Count 240 k/uL (150-450); RBC 4.72 m/uL (4.30-5.90); RDW 13.6 % (11.5-15.5)
[2024-07-28] MEDS: ACETAMINOPHEN IV (For NPO) 1,000 MG in EMPTY BAG 1 BAG IVPB STA (05:37)
[2024-07-28 05:48] LABS: Alcohol <10 mg/dL; Lipase 64 U/L (23-300)
[2024-07-28] MEDS: IBUPROFEN IV 800 MG in SODIUM CHLORIDE 0.9% 250 ML IV ONE (06:06)
--- NOTE | 2024-07-28 06:08 | CT ---
EXAM: CT Head Without Intravenous Contrast CLINICAL HISTORY: ITS.REASON CT Reason: fall TECHNIQUE: Axial computed tomography images of the head/brain without intravenous contrast. CTDI is 45.3 mGy and DLP is 1240 mGy-cm. This CT exam was performed using one or more of the following dose reduction techniques: automated exposure control, adjustment of the mA and/or kV according to patient size, and/or use of iterative reconstruction technique. COMPARISON: CT dated 02/09/2024 FINDINGS: Brain: Unremarkable. No hemorrhage. No significant white matter disease. No edema. Ventricles: Confluent hypodense changes are seen within the periventricular and deep white matter. Symmetric widening of the ventricles and sulci without evidence of midline shift or hydrocephalus. Bones/joints: Unremarkable. No acute fracture. Soft tissues: Unremarkable. Sinuses: Unremarkable as visualized. No acute sinusitis. Mastoid air cells: Unremarkable as visualized. No mastoid effusion. IMPRESSION: Chronic small vessel ischemic change, mild cerebral atrophy and no acute intracranial findings. No intracranial hemorrhage. EXAM: CT Cervical Spine Without Intravenous Contrast CLINICAL HISTORY: ITS.REASON CT Reason: fall TECHNIQUE: Axial computed tomography images of the cervical spine without intravenous contrast. CTDI is 21.7 mGy and DLP is 574.4 mGy-cm. This CT exam was performed using one or more of the following dose reduction techniques: automated exposure control, adjustment of the mA and/or kV according to patient size, and/or use of iterative reconstruction technique. COMPARISON: CT dated 02/09/2024. FINDINGS: Vertebrae: Diffuse degenerative endplate and uncovertebral hypertrophy. No acute fracture. Discs/spinal canal/neural foramina: Diffuse intervertebral disc space narrowing. Soft tissues: Unremarkable. IMPRESSION: Multilevel degenerative change. No acute findings. No evidence of fracture.
--- NOTE | 2024-07-28 06:09 | XR ---
EXAM: XR Chest, 1 View CLINICAL HISTORY: ITS.REASON XR Reason: fall TECHNIQUE: Frontal view of the chest. COMPARISON: No relevant prior studies available. FINDINGS: Lungs: Unremarkable. No consolidation. Pleural space: Small bilateral pleural effusions. No pneumothorax. Heart: Moderate enlargement of the cardiac silhouette. Mediastinum: Unremarkable. Normal mediastinal contour. Bones/joints: Degenerative changes are seen within the spine and shoulders. Sternotomy wires are in place. No acute fracture. IMPRESSION: Small bilateral pleural effusions.
[2024-07-28 06:11] LABS: ALT 17 U/L (4-49); AST 42 U/L (17-59); African American GFR (CKD) 71 (>60 ml/min/1.73 sqM); Albumin 4.3 g/dL (3.5-5.0); Alkaline Phosphatase 64 U/L (38-126); Anion Gap 17 mmol/L; Blood Urea Nitrogen 22 mg/dL (9-20); Calcium 8.7 mg/dL (8.4-10.2); Carbon Dioxide 20 mmol/L (22-30); Chloride 96 mmol/L (98-107); Glucose 156 mg/dL (74-99); Non-African American GFR(CKD) 62 (>60 ml/min/1.73 sqM); Potassium 4.6 mmol/L (3.5-5.1); Sodium 133 mmol/L (137-145); Total Bilirubin 1.6 mg/dL (0.2-1.3); Total Protein 6.9 g/dL (6.3-8.2)
--- NOTE | 2024-07-28 06:11 | XR ---
EXAM: XR Pelvis, 1 or 2 Views CLINICAL HISTORY: ITS.REASON XR Reason: fall TECHNIQUE: Frontal view of the pelvis. COMPARISON: No relevant prior studies available. FINDINGS: Bones/joints: Bilateral hip arthroplasties are in place. Degenerative changes are seen in the spine. No acute fracture. No dislocation. Soft tissues: Unremarkable. Other findings: Radiotherapy beads are in place. IMPRESSION: No acute findings in the pelvis.
[2024-07-28] MEDS ORDERED: NALOXONE 0.4 MG/ML 1 ML VIAL IV PRN (06:14)
[2024-07-28] MEDS ORDERED: MORPHINE SULFATE 4 MG/ML SYRINGE IV PRN (06:14)
[2024-07-28 06:39] LABS: Creatine Kinase 1181 U/L (55-170)
[2024-07-28 07:10] LABS: Influenza A Not Detected (Not Detectd); Influenza B Not Detected (Not Detectd); RSV Not Detected (Not Detectd)
[2024-07-28] MEDS: PANTOPRAZOLE 40 MG/10 ML VIAL IV SCH (08:35)
--- NOTE | 2024-07-28 12:48 | P.HPIM ---
History of Present Illness Patient pleasant 84-year-old male came in after he was found on the floor. Patient apparently was altered mental status but patient is alert oriented x 3. Patient is able to provide medical history and patient does not understand his care. Patient is not altered at all at this time patient denied any symptoms of UTI denied any pneumonia symptoms denies any body aches patient apparently was having nausea vomiting after which he felt weak and have to get down on the floor and called for help. Patient serum sodium is slightly low and creatinine mildly elevated above his baseline patient does have history of chronic diastolic function as well as severe pulmonary artery hypertension probably right-sided heart failure as well. REVIEW OF SYSTEMS: All other systems are negative except those mentioned in the HPI PHYSICAL EXAMINATION: GENERAL: The patient is alert and oriented x3, not in any acute distress. Well developed, well nourished. HEENT: Pupils are round and equally reacting to light. EOMI. No scleral icterus. No conjunctival pallor. Normocephalic, atraumatic. No pharyngeal erythema. No thyromegaly. CARDIOVASCULAR: S1 and S2 present. No murmurs, rubs, or gallops. PULMONARY: Chest is clear to auscultation, no wheezing or crackles. ABDOMEN: Soft, nontender, nondistended, normoactive bowel sounds. No palpable organomegaly. MUSCULOSKELETAL: No joint swelling or deformity. EXTREMITIES: No cyanosis, clubbing, patient has bilateral pedal edema NEUROLOGICAL: Gross neurological examination did not reveal any focal deficits. SKIN: No rashes. Assessment and plan -Volume overload: Probably secondary to his heart failure from diastolic function with mild acute exacerbation patient was given Lasix will recheck the electrolytes tomorrow -Hypervolemic hyponatremia patient is on sodium tablets which will be held patient had hyponatremia issues in the past was treated for hyperkalemia in the past and then was given Samsca and was sent home on sodium tablets. This will be held and patient will be started on diuretics will monitor the serum sodium -Congestive heart failure chronic diastolic function with mild acute exacerbation -Severe pulmonary hypertension -Nausea vomiting probably due to gastritis patient will be started on Protonix -Generalized weakness PT and OT evaluation patient lives at an assisted living -Hypertension patient blood pressure is low normal we will hold off on losartan -Coronary artery disease with CABG in the past continue with Plavix -As per the history patient has atrial fibrillation but patient is not on any anticoagulation at this time we will obtain an EKG -Gastroesophageal reflux disease -Hyperlipidemia -Plan prostatic hypertrophy -Hypothyroidism -Sleep apnea Prevention chronic allergy problems patient will be resumed on appropriate home medications DVT prophylaxis: Lovenox Past Medical History Past Medical History: Atrial Fibrillation, Coronary Artery Disease (CAD), Cancer, Chest Pain / Angina, GERD/Reflux, Hyperlipidemia, Hypertension, Myocardial Infarction ([place]), Osteoarthritis (OA), Prostate Disorder, Sleep Apnea/CPAP/BIPAP, Thyroid Disorder Additional Past Medical History / Comment(s): Hypothyroid, hyperactive bladder, A. fib (refuses anticoagulation). SEPTIC ARTHRITIS. diverticulosis Last Myocardial Infarction Date:: unknown History of Any Multi-Drug Resistant Organisms: None Reported Past Surgical History: Heart Catheterization, Tonsillectomy Additional Past Surgical History / Comment(s): radioactive seed implants for prostate cancer, cataracts removed-lens implants, bladder control device implanted 07-10-17 and removed 07-18-18, colonoscopy/polypectomy-benign. bilateral hip replaced. bone infection post op right hip. Past Anesthesia/Blood Transfusion Reactions: No Reported Reaction Additional Past Anesthesia/Blood Transfusion Reaction / Comment(s): has never had any blood transfusion Past Psychological History: No Psychological Hx Reported Smoking Status: Former smoker Past Alcohol Use History: Daily Past Drug Use History: None Reported - Past Family History Mother Family Medical History: Cancer Additional Family Medical History / Comment(s): from colon cancer at age 60 Father Family Medical History: Liver Disease Additional Family Medical History / Comment(s): from cirrhosis of the liver at age 59 they felt it was d/t farming chemicals 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 Medications and Allergies Home Medications Medication Instructions Recorded Confirmed Type Levothyroxine Sodium [Levoxyl] 75 mcg PO DAILY 07/22/18 07/28/24 History Pantoprazole Sodium [Protonix] 40 mg PO DAILY 11/01/20 07/28/24 History Losartan [Cozaar] 25 mg PO DAILY 02/07/24 07/28/24 History Clopidogrel [Plavix] 75 mg PO DAILY #30 tab 02/16/24 07/28/24 Rx Cyanocobalamin [Vitamin B-12] 1,000 mcg PO DAILY #30 tab 02/16/24 07/28/24 Rx Centrum Mini Silver Adult 50+ 1 tab PO DAILY 07/28/24 07/28/24 History Melatonin 3 mg PO HS 07/28/24 07/28/24 History Sertraline [Zoloft] 50 mg PO DAILY 07/28/24 07/28/24 History Sodium Chloride Tab 2 gm PO DAILY 07/28/24 07/28/24 History Allergies Allergy/AdvReac Type Severity Reaction Status Date / Time Iydjxks-HWF-RpO Reductase Allergy Severe Rash/Hives Verified 07/28/24 09:36 Inhibitor [Hfbbyyl-Zxy-Pki Reductase Inhibitor] Physical Exam Vitals: Vital Signs Temp Pulse Resp BP Pulse Ox 07/28/24 11:04 65 18 112/80 96 07/28/24 06:27 98.3 F 85 18 128/84 93 L 07/28/24 04:57 100.4 F H 85 16 119/60 93 L Intake and Output 07/27/24 07/28/24 07/28/24 22:59 06:59 14:59 Other: Weight 99.79 kg Results CBC & Chem 7: 07/28/24 05:03 07/28/24 05:08 Labs: Abnormal Lab Results - Last 24 Hours (Table) 07/28/24 07/28/24 Range/Units 05:03 05:08 WBC 14.0 H (3.8-10.6) k/uL Neutrophils # 13.0 H (1.3-7.7) k/uL Lymphocytes # 0.3 L (1.0-4.8) k/uL Sodium 133 L (137-145) mmol/L Chloride 96 L (98-107) mmol/L Carbon Dioxide 20 L (22-30) mmol/L BUN 22 H (9-20) mg/dL Glucose 156 H (74-99) mg/dL Total Bilirubin 1.6 H (0.2-1.3) mg/dL Creatine Kinase 1181 H* (55-170) U/L
[2024-07-28] MEDS: FUROSEMIDE 10 MG/ML 4 ML VIAL IV SCH (13:03)
[2024-07-28 17:41] LABS: Appearance,Urine Cloudy (Clear); Bacteria,Urine Rare /hpf; Bilirubin,Urine Negative (Negative); Blood,Urine Large (Negative); Color,Urine Yellow; Glucose,Urine (UA) Negative (Negative); Ketones,Urine Negative (Negative); Leukocyte Esterase,Urine Negative (Negative); Mucus,Urine Rare /hpf; Nitrite,Urine Negative (Negative); PH, Urine 5.5 (5.0-8.0); Protein,Urine 1+ (Negative); RBC,Urine 1 /hpf (0-5); Specific Gravity,Urine 1.014 (1.001-1.035); Squamous Epithelial Cell,Urine <1 /hpf (0-4); Urobilinogen,Urine <2.0 mg/dL (<2.0); WBC,Urine 3 /hpf (0-5)
[2024-07-28] MEDS: MELATONIN 3 MG TABLET PO PRN (19:53)
[2024-07-29] MEDS: LEVOTHYROXINE 75 MCG TAB PO SCH (05:37)
[2024-07-29 08:42] LABS: HCT 42.5 % (39.6-50.0); HGB 13.7 g/dL (13.0-17.0); MCH 29.5 pg (27.0-32.0); MCHC 32.2 g/dL (32.0-37.0); MCV 91.6 FL (80.0-97.0); Mean Platelet Volume 10.8 FL (9.5-12.2); NRBC Per 100 WBC 0 X 10*3/uL (0.00-0.01); Platelet Count 214 X 10*3/uL (140-440); RBC 4.64 X 10*6/uL (4.40-5.60); RDW 14.5 % (11.5-14.5); WBC 9.83 X 10*3/uL (4.50-10.00)
[2024-07-29 08:45] LABS: BUN/Creat Ratio 14.55 Ratio (12.00-20.00); Blood Urea Nitrogen 29.1 mg/dL (9.0-27.0); Calcium 8.2 mg/dL (8.7-10.3); Carbon Dioxide 22.2 mmol/L (21.6-31.8); Chloride 100 mmol/L (96-109); Glucose 114 mg/dL (70-110); Magnesium 2.2 mg/dL (1.5-2.4); Sodium 135 mmol/L (135-145)
[2024-07-29] MEDS: SERTRALINE 50 MG TAB PO SCH (10:05)
[2024-07-29] MEDS: ENOXAPARIN 40 MG/0.4 ML SYRINGE SQ SCH (10:06)
[2024-07-29] MEDS: CLOPIDOGREL 75 MG TAB PO SCH (10:06)
[2024-07-29] MEDS: PANTOPRAZOLE 40 MG TABLET PO SCH (10:06)
--- NOTE | 2024-07-29 13:56 | US ---
EXAMINATION TYPE: US venous doppler duplex LE DATE OF EXAM: 07/29/2024 1:39 PM COMPARISON: US(04/16/2020) CLINICAL INDICATION: Male, 84 years old with history of lower extremity edema bilaterally.; pt has be en experiencing bilateral lower calf swelling for several years now, currently on blood thinners, Vinny n TECHNIQUE: The lower extremity deep venous system is examined utilizing real time linear array sonog terry with graded compression, color doppler sonography, and spectral doppler. SIDE PERFORMED: Bilateral FINDINGS: VESSELS IMAGED: Common Femoral Vein Deep Femoral Vein Greater Saphenous Vein * Femoral Vein Popliteal Vein Small Saphenous Vein * Proximal Calf Veins (* superficial vessels) slightly limited exam due to pt unable to move legs well Right Leg: Negative for DVT, Color Doppler imaging shows patency of the vessels. Spectral waveforms are within normal limits. Left Leg: Negative for DVT, Color Doppler imaging shows patency of the vessels. Spectral waveforms a re within normal limits. IMPRESSION: No ultrasound evidence for deep venous thrombosis. [facility], , 07/29/2024 1:54 PM
--- NOTE | 2024-07-29 13:59 | US ---
EXAMINATION TYPE: US kidneys/renal and bladder DATE OF EXAM: 07/29/2024 COMPARISON: CT(01/03/2023) CLINICAL INDICATION: Male, 84 years old with history of MILLER; known bilateral cysts seen on prior CT() TECHNIQUE: Grayscale imaging of the bilateral kidneys and urinary bladder: FINDINGS: EXAM MEASUREMENTS: Right Kidney: 10.8x6.6x6.5 cm Left Kidney: 13.5x6.5x6.1 cm limited exam due to pt body habitus & overlying bowel Right Kidney: Multiple anechoic areas seen, Largest: 1. 2.9x2.3x3.2cm 2. 1.4x1.4x1.5cm Left Kidney: Large anechoic area seen (exophytic): 4.4x3.6x4.6cm Bladder: limited due to overlying bowel Bilateral Jets seen: limited, yes No hydronephrosis. Bilateral renal cysts. No shadowing renal calculi. Underdistended urinary bladder which is anechoic. Ureteral jets are identified. IMPRESSION: 1. No hydronephrosis. 2. Bilateral renal cysts. [facility], , 07/29/2024 1:57 PM
[2024-07-29] MEDS: HEPARIN SODIUM,PORCINE 5,000 UNIT/ML 1 ML VIAL SQ SCH (20:35)
--- NOTE | 2024-07-29 23:04 | P.PN ---
Subjective Progress Note Date: 07/29/24 Patient pleasant 84-year-old male came in after he was found on the floor. Patient apparently was altered mental status but patient is alert oriented x 3. Patient is able to provide medical history and patient does not understand his care. Patient is not altered at all at this time patient denied any symptoms of UTI denied any pneumonia symptoms denies any body aches patient apparently was h aving nausea vomiting after which he felt weak and have to get down on the floor and called for help. Patient serum sodium is slightly low and creatinine mildly elevated above his baseline patient does have history of chronic diastolic function as well as severe pulmonary artery hypertension probably right-sided heart failure as well. 07/29/2024 Patient is evaluated today in follow up. Sitting up in the chair. Continues with significant lower extremity edema 1+ pitting which per patient has been worsening on an outpatient basis he states he usually wears compression stockings. Patient was taken off his diuretic recently by his PCP. He was given IV lasix 40 mg x 2 doses his creatinine today is now up to 2.0 from 1.09 and the lasix has been discontinued. Venous doppler is negative for DVT bilaterally. Renal ultrasound reveals no hydronephrosis, there are bilateral renal cysts, no shadowing renal calculi. Underdistended urinary bladder which is anechoic. Ureteral jets are identified. Review of Systems Constitutional: Denied any fatigue denied any fever. Cardio vascular: denied any chest pain, palpitations Gastrointestinal: denied any nausea, vomiting, diarrhea Pulmonary: Denied any shortness of breath cough Neurologic denied any new focal deficits All inpatient medications were reviewed and appropriate changes in these medications as dictated in the interval history and assessment and plan. PHYSICAL EXAMINATION: GENERAL: The patient is alert and oriented x3, not in any acute distress. Well developed, well nourished. HEENT: Pupils are round and equally reacting to light. EOMI. No scleral icterus. No conjunctival pallor. Normocephalic, atraumatic. No pharyngeal erythema. No thyromegaly. CARDIOVASCULAR: S1 and S2 present. No murmurs, rubs, or gallops. PULMONARY: Chest is clear to auscultation, no wheezing or crackles. ABDOMEN: Soft, nontender, nondistended, normoactive bowel sounds. No palpable organomegaly. MUSCULOSKELETAL: No joint swelling or deformity. EXTREMITIES: No cyanosis, clubbing, patient has bilateral pedal edema NEUROLOGICAL: Gross neurological examination did not reveal any focal deficits. SKIN: No rashes. Assessment and plan -Volume overload: Probably secondary to his heart failure from diastolic function with mild acute exacerbation patient was given Lasix which has now been placed on hold as patients creatinine went up to 2.0. -Peripheral edema negative venous doppler. MARGO skinner ordered and patient to elevate lower extremity -Acute kidney injury prerenal. No evidence for urinary retention. -Hypervolemic hyponatremia patient is on sodium tablets which will be held patient had hyponatremia issues in the past was treated for hyperkalemia in the past and then was given Samsca and was sent home on sodium tablets. This will be held and patient will be started on diuretics will monitor the serum sodium -Congestive heart failure chronic diastolic function with mild acute exacerbation -Severe pulmonary hypertension -Nausea vomiting probably due to gastritis patient will be started on Protonix -Generalized weakness PT and OT evaluation patient lives at an assisted living -Hypertension patient blood pressure is low normal we will hold off on losartan -Coronary artery disease with CABG in the past continue with Plavix -As per the history patient has atrial fibrillation but patient is not on any anticoagulation at this time we will obtain an EKG -Gastroesophageal reflux disease -Hyperlipidemia -Plan prostatic hypertrophy -Hypothyroidism -Sleep apnea Prevention chronic allergy problems patient will be resumed on appropriate home medications DVT prophylaxis: Lovenox Pending improvement in renal function possible return to [facility] tomorrow. Repeat BMP in the AM. The impression and plan of care has been dictated by Dorene Chung, Nurse Practitioner as directed. Dr. Ruth MD I have performed a history and physical examination and medical decision making of this patient, discussed the same with the dictator, and agree with the dictators assessment and plan as written, documented as a scribe. Based on total visit time, I have performed more than 50% of this visit. Objective - Vital Signs Vital signs: Vital Signs Temp 98.2 F 07/29/24 13:56 Pulse 64 07/29/24 13:56 Resp 17 07/29/24 13:56 BP 119/72 07/29/24 13:56 Pulse Ox 96 07/29/24 13:56 FiO2 Intake & Output 07/28/24 07/29/24 07/29/24 18:59 06:59 18:59 Output Total 500 Balance -500 Weight 99.79 kg Output: Urine 500 Other: Voiding Method Urinal Urinal Diaper Diaper # Voids 1 1 - Labs CBC & Chem 7: 07/29/24 03:39 07/29/24 03:39 Labs: Abnormal Lab Results - Last 24 Hours (Table) 07/28/24 07/29/24 Range/Units 05:08 03:39 Anion Gap 12.80 H (4.00-12.00) mmol/L BUN 29.1 H (9.0-27.0) mg/dL Creatinine 2.0 H (0.6-1.5) mg/dL Est GFR (CKD-EPI) 32 L (>=60) Glucose 114 H (70-110) mg/dL Calcium 8.2 L (8.7-10.3) mg/dL Urine Protein 1+ H (Negative) Urine Blood Large H (Negative) Urine Bacteria Rare H (None) /hpf Urine Mucus Rare H (None) /hpf
[2024-07-30 08:57] VITALS: RESP 16
[2024-07-30] MEDS ORDERED: ENOXAPARIN 30 MG/0.3 ML SYRINGE SQ SCH (09:00)
[2024-07-30 09:32] LABS: Blood Urea Nitrogen 31.9 mg/dL (9.0-27.0); Calcium 8.3 mg/dL (8.7-10.3); Carbon Dioxide 23.5 mmol/L (21.6-31.8); Chloride 100 mmol/L (96-109); Glucose 98 mg/dL (70-110); Potassium 4.1 mmol/L (3.5-5.5); Sodium 136 mmol/L (135-145)
[2024-07-30 14:57] VITALS: BP 123/75; PULSE 64; TEMP 98.1
--- NOTE | 2024-08-01 12:36 | P.DS ---
Providers Date of admission: 07/29/24 09:15 Expected date of discharge: 07/30/24 Attending physician: Baljit Hua Primary care physician: Cristo Lyn [facility] Course: Final diagnosis -Volume overload: Probably secondary to his heart failure from diastolic function with mild acute exacerbation -Peripheral edema negative venous doppler. -Acute kidney injury prerenal. No evidence for urinary retention. Secondary to diuretic use -Hypervolemic hyponatremia patient is on sodium tablets which will be held -Congestive heart failure chronic diastolic function with mild acute exacerbation -Severe pulmonary hypertension -Nausea vomiting probably due to gastritis, resolved nix -Generalized weakness, improving -Hypertension, continue holding losartan until follow-up -Coronary artery disease with CABG in the past continue with Plavix -As per the history patient has atrial fibrillation but patient is not on any anticoagulation likely secondary to falls -Gastroesophageal reflux disease -Hyperlipidemia -prostatic hypertrophy -Hypothyroidism -Sleep apnea Discharge disposition Patient is being discharged in a stable condition with guarded prognosis to home at [facility]. Patient will follow-up with Dr. Lyn in the outpatient setting upon discharge. Patient is to continue with holding diuretics and outpatient follow-up with primary care provider as well as repeat labs ordered for cardiology as scheduled. Prescription provided for repeat labs in the next 2 to 3 days to monitor kidney functions and electrolytes. Total time taken is greater than 35 minutes. Hospital course This is a 84-year-old with male who was recently admitted volume overload with acute exacerbation of diastolic dysfunction heart failure. Patient having also increasing kidney functions likely secondary to diuretic use. Patient continues with lower extremity swelling and recommend compression stockings and/or Booker wraps from the toes up to the knees. Patient reports he does have compression stockings with the device to place them on at home. Patient does live in assisted living with plans on returning. Patient was evaluated by physical therapy recommending home with home care. Recommended monitoring overnight with repeat labs off diuretic use although family is persistent his mentation and overall wellbeing is deteriorating while remaining hospitalized. Patient will be discharged with close outpatient follow-up recommending holding diuretics and repeat labs in the next few days. Please refer to other consultation notes for further HPI. Currently no reports of chest pain, shortness of breath, or palpi tations. Patient is afebrile. No reports of nausea or vomiting and patient is tolerating diet. Patient will be discharged to [facility] where he resides today. Physical exam: Gen: This is a 84-year-old male who is awake, alert oriented x 2, baseline, well-developed, elderly appearing, obese HEENT: Head is atraumatic, normocephalic. Pupils equal, round. Sclerae is anicteric. NECK: Supple. No JVD. No lymphadenopathy. No thyromegaly. LUNGS: Clear to auscultation. No wheezes or rhonchi. No intercostal retractions. HEART: Regular rate and rhythm. No murmur. ABDOMEN: Soft. Bowel sounds are present. No masses. No tenderness. EXTREMITIES: No pedal edema. No calf tenderness. mild bilateral lower extremity edema, nonpitting noted NEUROLOGICAL: Patient is awake, alert and oriented x3. Cranial nerves 2 through 12 are grossly intact. Please refer to medication reconciliation sheet for a list of medications. The impression and plan of care has been dictated by Rebekah Jara, Nurse Practitioner as directed. Dr. Ruth MD I have performed a history and examination and MDM of this patient, discussed the same with the dictator, and agree with the dictator's assessment and plan as written ,documented as a scribe. Based on total visit time, I have performed more than 50% of the visit. Patient Condition at Discharge: Fair Plan - Discharge Summary Discharge Rx Participant: Yes New Discharge Prescriptions: Continue Levothyroxine Sodium [Levoxyl] 75 mcg PO DAILY Sertraline [Zoloft] 50 mg PO DAILY Melatonin 3 mg PO HS Centrum Mini Silver Adult 50+ 1 tab PO DAILY Pantoprazole Sodium [Protonix] 40 mg PO DAILY Clopidogrel [Plavix] 75 mg PO DAILY #30 tab Cyanocobalamin [Vitamin B-12] 1,000 mcg PO DAILY #30 tab Discontinued Sodium Chloride Tab 2 gm PO DAILY Losartan [Cozaar] 25 mg PO DAILY Discharge Medication List Levothyroxine Sodium [Levoxyl] 75 mcg PO DAILY 07/22/18 [History] Pantoprazole Sodium [Protonix] 40 mg PO DAILY 11/01/20 [History] Clopidogrel [Plavix] 75 mg PO DAILY #30 tab 02/16/24 [Rx] Cyanocobalamin [Vitamin B-12] 1,000 mcg PO DAILY #30 tab 02/16/24 [Rx] Centrum Mini Silver Adult 50+ 1 tab PO DAILY 07/28/24 [History] Melatonin 3 mg PO HS 07/28/24 [History] Sertraline [Zoloft] 50 mg PO DAILY 07/28/24 [History] Follow up Appointment(s)/Referral(s): Cristo Lyn DO [Primary Care Provider] - 08/05/24 2:00 pm Ambulatory/Diagnostic Orders: Basic Metabolic Panel [LAB.AMB] Time Frame: 3 Days, Location: None Selected Activity/Diet/Wound Care/Special Instructions: Activity limited until follow-up Follow-up with primary care provider on discharge Repeat labs in 2 to 3 days to monitor kidney functions Continue with compression stockings and/or Booker wraps from the toes up to the knees and elevate lower extremities while at rest Discharge Disposition: HOME SELF-CARE
== END 2024-07-30 16:44 | disposition home or self-care (01) | DRG 291 ==
LOC: EC 04:25 → 4SSUR 06:16 → OBSVTOIN 07-29 09:15
PROVIDERS: ADMIT Hospitalist; ATTEND Hospitalist
DX: I11.0 Hypertensive heart disease with heart failure (principal); I50.33 Acute on chronic diastolic (congestive) heart failure; F05 Delirium due to known physiological condition; E87.1 Hypo-osmolality and hyponatremia; I27.29 Other secondary pulmonary hypertension; Z95.1 Presence of aortocoronary bypass graft; E03.9 Hypothyroidism, unspecified; N17.9 Acute kidney failure, unspecified; I48.91 Unspecified atrial fibrillation; I50.82 Biventricular heart failure; E87.5 Hyperkalemia; K21.9 Gastro-esophageal reflux disease without esophagitis; E78.5 Hyperlipidemia, unspecified; N40.0 Benign prostatic hyperplasia without lower urinary tract symptoms; G47.30 Sleep apnea, unspecified; I25.10 Atherosclerotic heart disease of native coronary artery without angina pectoris; K29.70 Gastritis, unspecified, without bleeding; R15.9 Full incontinence of feces; R03.1 Nonspecific low blood-pressure reading; W18.30XA Fall on same level, unspecified, initial encounter; R53.1 Weakness; T50.2X5A Adverse effect of carbonic-anhydrase inhibitors, benzothiadiazides and other diuretics, initial encounter; Z96.643 Presence of artificial hip joint, bilateral; Z79.02 Long term (current) use of antithrombotics/antiplatelets; Z79.82 Long term (current) use of aspirin; I25.2 Old myocardial infarction; Z85.46 Personal history of malignant neoplasm of prostate; Z87.891 Personal history of nicotine dependence; Z79.890 Hormone replacement therapy; Z79.899 Other long term (current) drug therapy
CPT/HCPCS: 36415; 70450; 71045; 72125; 72170; 76770; 80048; 80053; 80320; 81001; 82550; 83690; 83735; 84100; 85025; 85027; 87636; 93970; 96365; 96366; 96367; 96368; 96375; 99285